=== PATIENT | male | born 1975 | race Two or more races ===

== ENCOUNTER 2020-03-01 19:29 | Emergency (ER) | payer OTHER, SELFPAY ==
[2020-03-01 20:14] VITALS: BP 114/75; PULSE 88; RESP 18; TEMP 36.9; O2SAT 91; BMI 21.2
--- NOTE | 2020-03-01 21:23 | CT_ITS ---
EXAMINATION: CTA CHEST PE STUDY CLINICAL INFORMATION: rt sided pain, hx pe COMPARISON: No pertinent prior studies are available for comparison. TECHNIQUE: Prior to contrast administration, noncontrast localization images were obtained. After the administration of 70ml of Omnipaque 350 IV contrast, contiguous thin slice helical images were obtained through the thorax. Reformatted MIP images in the coronal and sagittal planes were obtained at the acquisition workstation. This CT examination was performed using dose optimization techniques as appropriate, variously including the following: *Automated exposure control *Adjustment of mA and/or kV according to patient size (this includes techniques or standardized protocols for targeted exams where dose is matched to indication/reason for exam; i.e. extremities or head) *Use of iterative reconstruction technique DLP: 200 mGy-cm. FINDINGS: The bolus timing on this study was acceptable for visualization of the pulmonary arterial tree. There are no intraluminal pulmonary arterial filling defects present to suggest pulmonary embolism. The lungs are clear. No abnormal pulmonary nodules or masses are appreciated. No significant hilar or mediastinal adenopathy. There is no evidence of pleural effusion or pneumothorax. The heart is normal in size. No evidence of ventricular septal bowing or right heart strain. Great vessels are normal. Otherwise the mediastinum is unremarkable. There is no pericardial effusion or pericardial thickening. Limited evaluation of the upper abdominal viscera is unremarkable. CT/CT angio chest PE protocol IMPRESSION: Unremarkable examination. No evidence for pulmonary emboli VTE: Negative
--- NOTE | 2020-03-01 21:23 | ECG_ITS ---
Test Reason : CHEST PAIN Blood Pressure : / mmHG Vent. Rate : 077 BPM Atrial Rate : 077 BPM P-R Int : 142 ms QRS Dur : 088 ms QT Int : 392 ms P-R-T Axes : 090 087 081 degrees QTc Int : 443 ms Normal sinus rhythm Normal ECG When compared with ECG of 09-AUG-2018 03:49, No significant change was found Referred By: Tam Braden Electronically Signed By:HASEEB BUCKLEY MD
[2020-03-01] MEDS: Albuterol Sulfate (0.083%) 2.5 MG/3 ML VIAL.NEB 5 MG INHALE (21:43)
[2020-03-01 21:44] LABS: Basophils Percent Auto 0.2 % (0-2); Eosinophils Absolute Auto 0.4 X10*3/uL (0.0-0.4); Eosinophils Percent Auto 4.4 % (0-4); Hematocrit 37.1 % (42-52); Hemoglobin 12.3 g/dl (14.0-18.0); Imm Gran Abs Auto 0.02 X10*3/uL (0.00-0.03); Imm Gran Pct Auto 0.2 % (0.0-0.4); Lymphocytes Absolute Auto 2.7 X10*3/uL (1.2-4.9); Lymphocytes Percent Auto 32.7 % (20-40); MANUAL DIFF FLAG NO; Mean Corpuscular HGB Conc 33.2 g/dl (31.0-36.0); Mean Corpuscular Hemoglobin 31.9 pg (27.0-33.0); Mean Corpuscular Volume 96.4 fL (80-98); Mean Platelet Volume 9.9 fL (9.4-12.4); Monocytes Absolute Auto 0.7 X10*3/uL (0.1-1.2); Monocytes Percent Auto 8.1 % (2-11); Neutrophils Absolute Auto 4.4 X10*3/uL (2.0-8.3); Neutrophils Percent Auto 54.4 % (45-73); Platelet Count 227 X10*3/uL (160-400); Red Blood Count 3.85 X10*6/uL (4.60-5.80); Red Cell Distribution Width 12.6 % (11.0-16.0); White Blood Count 8.1 X10*3/uL (4.8-10.8)
[2020-03-01 21:45] VITALS: PULSE 74; PULSE 75; RESP 16; TEMP 37.1; O2SAT 98
[2020-03-01] MEDS: methylPREDNISolone Sod Succ/PF 125 MG/2 ML VIAL 60 MG IVPUSH (22:03)
[2020-03-01 22:06] LABS: Anion Gap 10 (12-20); Blood Urea Nitrogen 12 mg/dL (9-16); Calcium 8.7 mg/dL (8.4-10.2); Carbon Dioxide 32 mmol/L (22-29); Chloride 101 mmol/L (96-108); Creatinine Clr Calc Pharmacy 94.7; Estimated Glomerular Filt Rate > 60; Glucose Random 80 mg/dL (60-115); Potassium 4.2 mmol/l (3.3-5.1); Sodium 139 mmol/L (135-145)
[2020-03-01 22:11] LABS: Troponin-I High Sensitivity < 3.5 ng/L (<3.5-35.0)
[2020-03-01] MEDS: iohexoL 350 MG/ML 100 ML INFUS..BTL IV (22:35)
--- NOTE | 2020-03-01 22:37 | ED.CHESTPAIN ---
HPI - Chest Pain General Chief Complaint: Chest Pain Stated Complaint: lump on right side of chest Time Seen by Provider: 03/01/20 21:18 Source: patient Mode of arrival: ambulatory History of Present Illness HPI narrative: 44-year-old male with history of pulmonary embolism, chronic lung disease with home oxygen, here for shortness of breath and right-sided chest pain for 1-2 days. Patient states went to primary care doctor or steroids however was referred to emergency department for evaluation. Patient states has had some wheezing for the past several days and noticed that yesterday had pain to right upper chest secondary to cough denies fevers denies dizziness or syncope. Right-sided chest pain increase with palpation denies diaphoresis denies nausea vomiting MD complaint: chest pain Onset (ago): day(s) (2) Timing of current episode: constant Severity: mild Quality: tightness Treatment prior to arrival: none Related Data Home Medications Medication Instructions Recorded Confirmed albuterol sulfate 0.63 mg/3 mL 0.63 mg INHALATION Q4-6H PRN 03/01/20 solution for nebulization albuterol sulfate 90 mcg/actuation 2 puff INHALATION Q4-6H PRN 03/01/20 aerosol inhaler buspirone 15 mg tablet 15 mg PO BID 03/01/20 citalopram 40 mg tablet 40 mg PO DAILY 03/01/20 fluticasone 250 mcg-salmeterol 50 1 inh INHALATION BID 03/01/20 mcg/dose blistr powdr for inhalation hydroxyzine pamoate 25 mg capsule 25 mg PO QID 03/01/20 montelukast 10 mg tablet 10 mg PO DAILY 03/01/20 omeprazole 20 mg capsule,delayed 20 mg PO DAILY 03/01/20 release Previous Rx's Medication Instructions Recorded prednisone 50 mg PO DAILY 5 Days #5 tab 03/01/20 Allergies Allergy/AdvReac Type Severity Reaction Status Date / Time walnut Allergy Unknown SWELLING Verified 03/01/20 20:10 NSAIDS/ASA Allergy Unknown unknown Uncoded 03/01/20 16:12 walnuts Allergy Unknown anaphylaxis Uncoded 08/15/19 00:00 Review of Systems Review of Systems: Constitutional : No Weight loss, No Fever, No Chills, No Night Sweats, No Fatigue, No Malaise ENT/Mouth : No Hearing loss, No Ear Pain, No Nasal Congestion, No Sinus Pain, No Hoarseness, No sore throat, No Rhinorrhea, No Swallowing Difficulty Eyes: No Eye Pain, No Swelling, No Redness, No Foreign Body, No Discharge, No Vision Changes Cardiovascular : No Chest Pain, No SOB, No Dyspnea on Exertion, No Orthopnea, No Edema, No Palpitations Respiratory : No Cough, No Sputum, positive Wheezing, No Smoke Exposure, No Dyspnea Gastrointestinal : No Nausea, No Vomiting, No Diarrhea, No Constipation, No abdominal Pain, No Hematochezia, No Melena Genitourinary : no irregular bleeding, No Dysuria, No Urinary Frequency, No Hematuria, No Urinary Incontinence, No Urgency, No Flank Pain, No Urinary Flow Changes, No Hesitancy Musculoskeletal : No joint pain, No Myalgias, No Joint Swelling right upper chest pain with palpation Skin : No Skin Lesions, No rash Neuro : No Weakness, No Numbness, No Paresthesias, No Loss of Consciousness, No Dizziness, No Headache Psych : No Anxiety/Panic, No Depression, No SI/HI/AH/VH, No Social Issues, Heme/Lymph: No Bruising, No Bleeding,No Lymphadenopathy Endocrine : No Polyuria, No Polydipsia, No Temperature Intolerance [facility] Past Medical History Medical History Pulmonary emboli Family History Family History (Updated 03/01/20 @ 22:39 by Tam Braden DO) Other Family history non-contributory Social History Social History Alcohol intake: never Smoking Status: Never smoker Use of substances other than those prescribed or required for medical reasons: No Advance Directives: No Physical Exam Vital Signs: Vital Signs: Last Vital Signs Temp 98.7 F 03/01/20 21:45 Pulse 75 03/01/20 21:45 Resp 16 03/01/20 21:45 BP 114/75 03/01/20 20:14 Pulse Ox 98 03/01/20 21:45 Body Mass Index 21.2 Pulse ox 98%. Interpreted by me. Room air. Normal Appearance: Alert. Oriented X3. No acute distress. Eyes: Pupils equal, round and reactive to light. ENT: Pharynx normal. Neck: Normal inspection. Neck supple. No lymph nodes noted. No crepitus CVS: Normal heart rate and rhythm. Pulses normal. Normal S1 and S2 Respiratory: No respiratory distress. Breath sounds abnormal with bilateral Wheezing. No rales Abdomen: Soft and nontender. No rigidity. No distention. good BS x4 Skin: Skin warm and dry. Normal skin color. Normal skin turgor. Extremities: No lower extremity edema. Neurovascular intact to all extremities. No Lacerations. No Rash Neuro: Oriented X 3. No motor deficit. No sensory deficit. Moving all extermities. No slurred speech. Chest: Pain to palpation to right upper chest. No abscess. No erythema. No rash Course Course Course Narrative: Neuro course in emergency department patient remained calm in no respiratory distress. MDM - Chest Pain MDM Narrative Medical decision making narrative: 44-year-old male with history of pulmonary embolism here for pleuritic right-sided chest pain. CT scan of the chest now was negative. Troponin negative EKG negative. Patient did have a low oxygen saturation 91% room air however patient states that this is normal for him and has home oxygen. Will discharge home with p.o. steroids direction to use home oxygen Medical Records Data Attestation: I reviewed the patient's medical records. Lab Data Attestation: I reviewed the patient's lab results. Result diagrams: 03/01/20 21:38 03/01/20 21:38 Labs: Lab Results 03/01/20 03/01/20 03/01/20 Range/Units 21:38 21:38 21:38 WBC 8.1 (4.8-10.8) X10*3/uL RBC 3.85 L (4.60-5.80) X10*6/uL Hgb 12.3 L (14.0-18.0) g/dl Hct 37.1 L (42-52) % MCV 96.4 (80-98) fL MCH 31.9 (27.0-33.0) pg MCHC 33.2 (31.0-36.0) g/dl RDW 12.6 (11.0-16.0) % Plt Count 227 (160-400) X10*3/uL MPV 9.9 (9.4-12.4) fL Immature Gran % (Auto) 0.2 (0.0-0.4) % Neut % (Auto) 54.4 (45-73) % Lymph % (Auto) 32.7 (20-40) % [place] % (Auto) 8.1 (2-11) % Eos % (Auto) 4.4 H (0-4) % Baso % (Auto) 0.2 (0-2) % Lymph # (Auto) 2.7 (1.2-4.9) X10*3/uL [place] # (Auto) 0.7 (0.1-1.2) X10*3/uL Eos # (Auto) 0.4 (0.0-0.4) X10*3/uL Baso # (Auto) 0.0 (0.0-0.2) X10*3/uL Abs Immat Gran (auto) 0.02 (0.00-0.03) X10*3/uL Absolute Neuts (auto) 4.4 (2.0-8.3) X10*3/uL Absolute Nucleated RBC 0.000 (0.0-0.012) X10*3/uL Nucleated RBC % (auto) 0.0 (0.0-0.2) /100WBC Hold Blue Top SEE NOTE Sodium 139 (135-145) mmol/L Potassium 4.2 (3.3-5.1) mmol/l Chloride 101 (96-108) mmol/L Carbon Dioxide 32 H (22-29) mmol/L Anion Gap 10 L (12-20) BUN 12 (9-16) mg/dL Creatinine 0.99 (0.5-1.4) mg/dL Estim Creat Clear Calc 94.7 Estimated GFR > 60 Random Glucose 80 (60-115) mg/dL Calcium 8.7 (8.4-10.2) mg/dL Troponin I High Sens (<3.5-35.0) ng/L 03/01/20 Range/Units 21:38 WBC (4.8-10.8) X10*3/uL RBC (4.60-5.80) X10*6/uL Hgb (14.0-18.0) g/dl Hct (42-52) % MCV (80-98) fL MCH (27.0-33.0) pg MCHC (31.0-36.0) g/dl RDW (11.0-16.0) % Plt Count (160-400) X10*3/uL MPV (9.4-12.4) fL Immature Gran % (Auto) (0.0-0.4) % Neut % (Auto) (45-73) % Lymph % (Auto) (20-40) % [place] % (Auto) (2-11) % Eos % (Auto) (0-4) % Baso % (Auto) (0-2) % Lymph # (Auto) (1.2-4.9) X10*3/uL [place] # (Auto) (0.1-1.2) X10*3/uL Eos # (Auto) (0.0-0.4) X10*3/uL Baso # (Auto) (0.0-0.2) X10*3/uL Abs Immat Gran (auto) (0.00-0.03) X10*3/uL Absolute Neuts (auto) (2.0-8.3) X10*3/uL Absolute Nucleated RBC (0.0-0.012) X10*3/uL Nucleated RBC % (auto) (0.0-0.2) /100WBC Hold Blue Top Sodium (135-145) mmol/L Potassium (3.3-5.1) mmol/l Chloride (96-108) mmol/L Carbon Dioxide (22-29) mmol/L Anion Gap (12-20) BUN (9-16) mg/dL Creatinine (0.5-1.4) mg/dL Estim Creat Clear Calc Estimated GFR Random Glucose (60-115) mg/dL Calcium (8.4-10.2) mg/dL Troponin I High Sens < 3.5 (<3.5-35.0) ng/L Discharge Plan Discharge Clinical Impression: Chest wall pain Chest pain Qualifiers: Chest pain type: unspecified Qualified Code(s): R07.9 - Chest pain, unspecified Asthma Qualifiers: Asthma severity: moderate Asthma persistence: persistent Asthma complication type: uncomplicated Qualified Code(s): J45.40 - Moderate persistent asthma, uncomplicated Patient Disposition: Home, Self-Care Instructions: Chest Wall Pain (ED) Additional Instructions: Thank you for visiting the emergency department today. If your symptoms worsen or do not resolve completely please return to the emergency department immediately or call 911. if he have any questions please call your primary care physician Prescriptions: New prednisone 50 mg tablet 50 mg PO DAILY 5 Days Qty: 5 RF: 0 Referrals: Kishor Barrett, [employer] [Primary Care Provider] - 2 days
== END 2020-03-01 23:40 | disposition home or self-care (01) ==
PROVIDERS: Emergency Provider Emergency Medicine; PCP Nurse Practitioner Family
DX: R07.9 Chest pain, unspecified (principal); J45.40 Moderate persistent asthma, uncomplicated; R22.2 Localized swelling, mass and lump, trunk; Z86.711 Personal history of pulmonary embolism; Z79.899 Other long term (current) drug therapy
CPT/HCPCS: 36415; 71275; 80048; 84484; 85025; 93005; 94640; 96374; 99284; J2930; Q9967

== ENCOUNTER 2020-08-09 12:57 | Inpatient (IN) | payer OTHER, SELFPAY ==
[2020-08-09] VITALS (15 sets, daily range): BP systolic 83–118; BP diastolic 37–70; PULSE 73–111; RESP 15–20; TEMP 36.9–37.3; O2SAT 85–97; BMI 18.8
--- NOTE | ~2020-08-09 | XR_ITS ---
EXAMINATION: XR CHEST CLINICAL INFORMATION: SOB. COMPARISON: CTA chest 03/01/2020. Chest x-ray 08/09/2018 TECHNIQUE: Frontal view of the chest was obtained. FINDINGS: The lungs are hyperinflated but no acute pneumonic process seen. Heart size and pulmonary vascularity is normal. No gross bony abnormality seen. XR/XR chest 1V IMPRESSION: Hyperinflated lungs without acute process.
--- NOTE | 2020-08-09 13:20 | ECG_ITS ---
Test Reason : SOB Blood Pressure : / mmHG Vent. Rate : 082 BPM Atrial Rate : 082 BPM P-R Int : 140 ms QRS Dur : 086 ms QT Int : 368 ms P-R-T Axes : 088 155 068 degrees QTc Int : 429 ms Normal sinus rhythm Normal EKG When compared with ECG of 01-MAR-2020 22:46, No significant change was found Referred By: Bhavana Arndt Electronically Signed By:ANA JO
[2020-08-09] MEDS: Albuterol Sulfate (0.083%) 2.5 MG/3 ML VIAL.NEB 10 MG INHALE ×2 (13:28→15:32)
[2020-08-09 13:38] LABS: MANUAL DIFF FLAG NO
[2020-08-09] MEDS: methylPREDNISolone Sod Succ 125 MG/2 ML VIAL IVPUSH (13:38)
[2020-08-09] MEDS: Magnesium Sulfate/H2O 2 GM/50 ML PIGGYBACK IV (13:38)
[2020-08-09 13:44] LABS: Basophils Percent Auto 0.5 % (0-2); Eosinophils Absolute Auto 0.8 X10*3/uL (0.0-0.4); Eosinophils Percent Auto 9.4 % (0-4); Hematocrit 39.4 % (42-52); Hemoglobin 13.1 g/dl (14.0-18.0); Imm Gran Abs Auto 0.02 X10*3/uL (0.00-0.03); Imm Gran Pct Auto 0.2 % (0.0-0.4); Lymphocytes Absolute Auto 1.9 X10*3/uL (1.2-4.9); Lymphocytes Percent Auto 21.7 % (20-40); Mean Corpuscular HGB Conc 33.2 g/dl (31.0-36.0); Mean Corpuscular Hemoglobin 32.1 pg (27.0-33.0); Mean Corpuscular Volume 96.6 fL (80-98); Mean Platelet Volume 10.3 fL (9.4-12.4); Monocytes Absolute Auto 0.5 X10*3/uL (0.1-1.2); Monocytes Percent Auto 5.7 % (2-11); Neutrophils Absolute Auto 5.5 X10*3/uL (2.0-8.3); Neutrophils Percent Auto 62.5 % (45-73); Platelet Count 239 X10*3/uL (160-400); Red Blood Count 4.08 X10*6/uL (4.60-5.80); Red Cell Distribution Width 13.1 % (11.0-16.0); White Blood Count 8.8 X10*3/uL (4.8-10.8)
[2020-08-09 13:50] LABS: Prothrombin Time 12.4 SEC (10.8-13.0)
[2020-08-09 13:53] LABS: Partial Thromboplastin Time 32.7 SEC (24.1-38.0)
[2020-08-09 14:07] LABS: Lactic Acid 0.8 mmol/L (0.5-2.0)
[2020-08-09 14:16] LABS: Alanine Aminotransferase 14 U/L (0-40); Albumin Level 4.3 g/dL (3.5-5.0); Alkaline Phosphatase 59 U/L (39-117); Anion Gap 13 (12-20); Aspartate Amino Transferase 13 U/L (5-37); B Type Natriuretic Peptide 12 pg/mL (<100); Bilirubin Direct 0.2 mg/dL (0.0-0.5); Bilirubin Total 0.6 mg/dL (0.0-1.0); Blood Urea Nitrogen 20 mg/dL (9-16); Calcium 9.6 mg/dL (8.4-10.2); Carbon Dioxide 29 mmol/L (22-29); Chloride 104 mmol/L (96-108); Creatinine Clr Calc Pharmacy 70.5; Estimated Glomerular Filt Rate > 60; Glucose Random 94 mg/dL (60-115); Magnesium 2.1 mg/dL (1.6-2.6); Potassium 4.6 mmol/L (3.3-5.1); Sodium 141 mmol/L (135-145); Total Protein 6.7 g/dL (6.5-8.0); Troponin-I High Sensitivity < 3.5 ng/L (<3.5-35.0)
--- NOTE | 2020-08-09 14:31 | PC.NURSE ---
reports feeling better with treatment running and after meds. pharmacy present for med rec. ls still coarse but good air movement. nsr on monitor. awaits admission
[2020-08-09 15:18] LABS: Influenza A PCR NEGATIVE (Negative); Influenza B PCR NEGATIVE (Negative); Resp Syncy Virus RNA Qual PCR NEGATIVE (Negative); SARS COV2 PCR INHOUSE NEGATIVE (Negative)
--- NOTE | 2020-08-09 15:27 | PC.NURSE ---
following hour long treatment pt remains unlabored but coarse throughout with good air movement. provider left pt on RA and dipped to 85% at rest in bed. up to 91 on 6L
--- NOTE | 2020-08-09 15:51 | ED_ITS ---
HPI - SOB/Dyspnea General Chief Complaint: Dyspnea Stated Complaint: Short Of Breath Time Seen by Provider: 08/09/20 13:11 Source: patient and EMS Mode of arrival: EMS History of Present Illness HPI Narrative: 45-year-old male with a past medical history of asthma, PE on Eliquis, home O2 p.r.n., BIBA for chest tightness and SOB since yesterday, was sent in from UC noted to be 86% on RA, received DuoNeb by EMS with reported symptomatic improvement, oxygen improved to 95% on 6L NC. Patient admits to compliance with Eliquis, states rarely uses home O2. Reports productive cough. Denies fever, chills, LE edema, recent travel, COVID-19 exposure, abdominal pain, nausea/vomiting MD elicited complaint: shortness of breath, cough and asthma attack Related Data Home Medications Medication Instructions Recorded Confirmed hydroxyzine pamoate 25 mg capsule 25 mg PO BEDTIME 03/01/20 08/09/20 albuterol sulfate 0.63 mg INHALATION Q4H PRN 08/09/20 08/09/20 albuterol sulfate 2 puff INHALATION Q4H PRN 08/09/20 08/09/20 montelukast 10 mg PO BEDTIME 08/09/20 08/09/20 omeprazole 20 mg PO DAILY@0630 08/09/20 08/09/20 Previous Rx's Medication Instructions Recorded buspirone 15 mg tablet 15 mg PO BID #60 tab 06/07/20 fluticasone 250 mcg-salmeterol 50 1 inh INHALATION BID #60 ea 06/15/20 mcg/dose blistr powdr for inhalation citalopram 40 mg tablet 40 mg PO DAILY 30 Days #30 tab 07/06/20 apixaban 5 mg tablet 5 mg PO BID #120 tab 07/07/20 Allergies Allergy/AdvReac Type Severity Reaction Status Date / Time walnut Allergy Unknown SWELLING Verified 08/09/20 13:10 buprenorphine [From Suboxone] Allergy swelling Verified 08/09/20 13:10 in his hands and rash naloxone [From Suboxone] Allergy swelling Verified 08/09/20 13:10 in his hands and rash NSAIDS/ASA Allergy Unknown unknown Uncoded 08/09/20 12:15 walnuts Allergy Unknown anaphylaxis Uncoded 08/09/20 12:15 Review of Systems Review of Systems: Constitutional: No Fever, No Chills Cardiovascular: + Chest Pain, + SOB, No Dyspnea on Exertion, No Orthopnea, No Edema Respiratory: + Cough, + Sputum, + Wheezing Gastrointestinal: No Nausea, No Vomiting, No Diarrhea, No Constipation, No Abdominal pain Genitourinary: No irregular bleeding, No Dysuria, No Hematuria Musculoskeletal: No joint pain, No Myalgias Skin: No Skin Lesions, No rash Neuro: No Weakness, No Numbness, No Paresthesias Yes all other systems are reviewed and are negative [facility] Past Medical History Attestation statement: The following information was validated with the patient. Medical History (Updated 08/09/20 @ 16:00 by CHRISTO Grullon) Asthma Chronic lung disease Pulmonary emboli Family History Family History Other Family history non-contributory Social History Social History Alcohol intake: never Smoking Status: Never smoker Use of substances other than those prescribed or required for medical reasons: No Advance Directives: No Advance Directives Information Provided: No Physical Exam Vital Signs: Vital Signs: Last Vital Signs Temp 99.2 F 08/09/20 13:10 Pulse 76 08/09/20 15:33 Resp 18 08/09/20 15:26 BP 104/51 L 08/09/20 15:26 Pulse Ox 85 L 08/09/20 15:26 Body Mass Index 18.8 Const: General: cooperative and healthy appearing Orientation/consciousness: patient oriented x3 Limitations: no limitations HENMT: Head: Yes normal to inspection Ears: hearing grossly normal bilaterally General nose exam: Normal external nose present Face and sinus: Yes normal facial exam Eyes: General: appearance normal, both eyes and all related structures EOM: EOMs intact bilaterally Neck: Neck: Yes normal visual inspection and Yes no meningeal signs Resp: Other: Coarse lung sounds throughout Effort & Inspection: normal respiratory effort Auscultation: wheezes throughout Cardio: Rate: regular rate Heart sounds: S1 normal heart sound present and S2 normal heart sound present GI: Inspection: Yes normal to inspection Palpation (GI): Soft to palpation, nontender, no guarding and not rigid Skin: Rashes: no rashes Wounds: no wounds Neuro: General: patient oriented x3 and no meningeal signs Gait exam (Neuro): Normal gait present Extrem: General: Yes normal to inspection, Yes no pedal edema and Yes no calf tenderness Course Course Course Narrative: -no leukocytosis, H/H stable, troponin negative, lactic negative -COVID-19/influenza/RSV negative XR chest 1V IMPRESSION: Hyperinflated lungs without acute process >> on re-evaluation after our long albuterol treatment patient without much improvement, still desats to 85% on RA, persistent coarse lung sounds/wheezing. Additional albuterol neb ordered. Plan to admit for further management MDM - SOB/Dyspnea MDM Narrative Medical decision making narrative: 45-year-old male with a past medical history of asthma, PE on Eliquis, home O2 p.r.n., BIBA for chest tightness and SOB since yesterday, was sent in from noted to be 86% on RA, received DuoNeb by EMS with reported symptomatic improvement, oxygen improved to 95% on 6L NC. On exam low-grade temp 99.2?, coarse lung sounds with diffuse expiratory wheeze throughout, no LE edema or calf tenderness. Concern for asthma exacerbation. Unlikely PE as patient is anticoagulated. Rule out pneumonia/viral syndrome/COVID-19 Low concern for severe sepsis Plan: EKG, labs, CXR, Solu-Medrol, magnesium, albuterol, anticipated admission Medical Records Attestation: I reviewed the patient's medical records. Lab Data Attestation: I reviewed the patient's lab results. Result diagrams: 08/09/20 13:30 08/09/20 13:30 Labs: Lab Results 08/09/20 08/09/20 08/09/20 Range/Units 13:30 13:30 13:30 WBC 8.8 (4.8-10.8) X10*3/uL RBC 4.08 L (4.60-5.80) X10*6/uL Hgb 13.1 L (14.0-18.0) g/dl Hct 39.4 L (42-52) % MCV 96.6 (80-98) fL MCH 32.1 (27.0-33.0) pg MCHC 33.2 (31.0-36.0) g/dl RDW 13.1 (11.0-16.0) % Plt Count 239 (160-400) X10*3/uL MPV 10.3 (9.4-12.4) fL Immature Gran % (Auto) 0.2 (0.0-0.4) % Neut % (Auto) 62.5 (45-73) % Lymph % (Auto) 21.7 (20-40) % [place] % (Auto) 5.7 (2-11) % Eos % (Auto) 9.4 H (0-4) % Baso % (Auto) 0.5 (0-2) % Lymph # (Auto) 1.9 (1.2-4.9) X10*3/uL [place] # (Auto) 0.5 (0.1-1.2) X10*3/uL Eos # (Auto) 0.8 H (0.0-0.4) X10*3/uL Baso # (Auto) 0.0 (0.0-0.2) X10*3/uL Abs Immat Gran (auto) 0.02 (0.00-0.03) X10*3/uL Absolute Neuts (auto) 5.5 (2.0-8.3) X10*3/uL Absolute Nucleated RBC 0.000 (0.0-0.012) X10*3/uL Nucleated RBC % (auto) 0.0 (0.0-0.2) /100WBC PT (10.8-13.0) SEC INR (0.9-1.1) APTT (24.1-38.0) SEC Sodium 141 (135-145) mmol/L Potassium 4.6 (3.3-5.1) mmol/L Chloride 104 (96-108) mmol/L Carbon Dioxide 29 (22-29) mmol/L Anion Gap 13 (12-20) BUN 20 H D (9-16) mg/dL Creatinine 1.17 (0.5-1.4) mg/dL Estim Creat Clear Calc 70.5 Estimated GFR > 60 Random Glucose 94 (60-115) mg/dL Lactic Acid (0.5-2.0) mmol/L Calcium 9.6 D (8.4-10.2) mg/dL Magnesium 2.1 (1.6-2.6) mg/dL Total Bilirubin 0.6 (0.0-1.0) mg/dL Direct Bilirubin 0.2 (0.0-0.5) mg/dL AST 13 (5-37) U/L ALT 14 (0-40) U/L Alkaline Phosphatase 59 (39-117) U/L Troponin I High Sens < 3.5 (<3.5-35.0) ng/L B-Natriuretic Peptide 12 (<100) pg/mL Total Protein 6.7 (6.5-8.0) g/dL Albumin 4.3 (3.5-5.0) g/dL Coronavirus (PCR) (Negative) Influenza Type A (PCR) (Negative) Influenza Type B (PCR) (Negative) RSV RNA Qual (PCR) (Negative) 08/09/20 08/09/20 08/09/20 Range/Units 13:30 13:31 13:41 WBC (4.8-10.8) X10*3/uL RBC (4.60-5.80) X10*6/uL Hgb (14.0-18.0) g/dl Hct (42-52) % MCV (80-98) fL MCH (27.0-33.0) pg MCHC (31.0-36.0) g/dl RDW (11.0-16.0) % Plt Count (160-400) X10*3/uL MPV (9.4-12.4) fL Immature Gran % (Auto) (0.0-0.4) % Neut % (Auto) (45-73) % Lymph % (Auto) (20-40) % [place] % (Auto) (2-11) % Eos % (Auto) (0-4) % Baso % (Auto) (0-2) % Lymph # (Auto) (1.2-4.9) X10*3/uL [place] # (Auto) (0.1-1.2) X10*3/uL Eos # (Auto) (0.0-0.4) X10*3/uL Baso # (Auto) (0.0-0.2) X10*3/uL Abs Immat Gran (auto) (0.00-0.03) X10*3/uL Absolute Neuts (auto) (2.0-8.3) X10*3/uL Absolute Nucleated RBC (0.0-0.012) X10*3/uL Nucleated RBC % (auto) (0.0-0.2) /100WBC PT 12.4 (10.8-13.0) SEC INR 1.0 (0.9-1.1) APTT 32.7 (24.1-38.0) SEC Sodium (135-145) mmol/L Potassium (3.3-5.1) mmol/L Chloride (96-108) mmol/L Carbon Dioxide (22-29) mmol/L Anion Gap (12-20) BUN (9-16) mg/dL Creatinine (0.5-1.4) mg/dL Estim Creat Clear Calc Estimated GFR Random Glucose (60-115) mg/dL Lactic Acid 0.8 (0.5-2.0) mmol/L Calcium (8.4-10.2) mg/dL Magnesium (1.6-2.6) mg/dL Total Bilirubin (0.0-1.0) mg/dL Direct Bilirubin (0.0-0.5) mg/dL AST (5-37) U/L ALT (0-40) U/L Alkaline Phosphatase (39-117) U/L Troponin I High Sens (<3.5-35.0) ng/L B-Natriuretic Peptide (<100) pg/mL Total Protein (6.5-8.0) g/dL Albumin (3.5-5.0) g/dL Coronavirus (PCR) NEGATIVE (Negative) Influenza Type A (PCR) NEGATIVE (Negative) Influenza Type B (PCR) NEGATIVE (Negative) RSV RNA Qual (PCR) NEGATIVE (Negative) ECG Data Attestation: I personally reviewed and interpreted this ECG as follows: ECG interpretation date: 08/09/20 ECG interpretation time: 13:59 Interpretation: EKG normal sinus rhythm with a rate of 82. No STEMI/nonischemic. QTC 429 Discharge Plan Discharge Clinical Impression: Asthma with exacerbation Patient Disposition: Admitted As Inpatient Prescriptions: No Action buspirone 15 mg tablet 15 mg PO BID Qty: 60 RF: 3 fluticasone propion-salmeterol [Advair Diskus] 250-50 mcg/dose blister with device 1 inh inhalation BID Qty: 60 RF: 1 citalopram [Celexa] 40 mg tablet 40 mg PO DAILY 30 Days Qty: 30 RF: 0 apixaban [Eliquis] 5 mg tablet 5 mg PO BID Qty: 120 RF: 0 albuterol sulfate 0.63 mg/3 mL solution for nebulization 0.63 mg inhalation Q4H PRN (Reason: bronchospasm) RF: 0 omeprazole 20 mg capsule,delayed release(DR/EC) 20 mg PO DAILY@0630 RF: 0 montelukast 10 mg tablet 10 mg PO BEDTIME RF: 0 albuterol sulfate 90 mcg/actuation HFA aerosol inhaler 2 puff inhalation Q4H PRN (Reason: bronchospasm) RF: 0 hydroxyzine pamoate [Vistaril] 25 mg capsule 25 mg PO BEDTIME RF: 0
--- NOTE | 2020-08-09 16:42 | P.HPHOSP_ITS ---
History of Present Illness Date of Service: 08/09/20 Chief Complaint: shortness of breath This is a 45-year-old male with a past medical history of asthma, pulmonary embolism on Eliquis, prior opiate dependence previously on Suboxone now reports not on anything, anxiety, chronic respiratory failure with hypoxia with exertion reportedly is supposed to be on 2 L but reports he has not been using it for more than 1 year as he is not needed. Patient reports that he woke up last night with severe shortness of breath and try to uses nebulizers without much improvement and so he went to Urgent Care today where he was noted to have diffuse wheezing and hypoxic. He reports that yesterday he was outside and feels that maybe he is allergic to something. Reports some rhinorrhea since going outside, which was green and thick in nature. He denies any sinus pressure. He denies any fevers or chills. Denies any exposure to COVID 19+. Denies productive cough. Reports he was prescribed O2 last year as needed, but he has not required it in >1 year. He reports that he was previously a smoker but hasn't in >1 year. He reports he was previously on suboxone but has not been on it for a while. He has not received COVID vaccine. In the ED -- the patient was noted to have diffuse wheezing and hypoxic down to the mid 80s. He was given an hour long neb + mag + IV steriods but did not improve and hypoxic. A second hour long neb was started and admission was requested. Review of Systems Review of Systems: General - denies fevers or chills, denies weakness or fatigue HEENT - Rhinorrhea - greening in nature Cardiovascular - denies chest pain or palpitations, denies edema Respiratory - +SOB, wheezing, cough -- non productive Gastrointestinal - denies abdominal pain, nausea, vomiting, diarrhea - denies flank pain, denies dysuria, denies frequency or urgency Musculoskeletal - denies back pain, denies hip pain, denies knee pain, denies shoulder pain Neurological - denies any focal weakness or numbness Skin, denies any bruising or redness Psychiatric - denies any suicidal ideation, hallucinations, homicidal ideation Endocrinology - denies intolerance to hot / cold temperatures [facility] Medical History (Updated 08/09/20 @ 16:51 by Christofer Storey MD) Asthma Chronic lung disease Pulmonary emboli Family History Other Family history non-contributory Social History Alcohol intake: never Smoking Status: Never smoker Use of substances other than those prescribed or required for medical reasons: No Advance Directives: No Advance Directives Information Provided: No Meds Allergies Allergy/AdvReac Type Severity Reaction Status Date / Time walnut Allergy Unknown SWELLING Verified 08/09/20 13:10 buprenorphine [From Suboxone] Allergy swelling Verified 08/09/20 13:10 in his hands and rash naloxone [From Suboxone] Allergy swelling Verified 08/09/20 13:10 in his hands and rash NSAIDS/ASA Allergy Unknown unknown Uncoded 08/09/20 12:15 walnuts Allergy Unknown anaphylaxis Uncoded 08/09/20 12:15 Active Medications: Current Medications Generic Name Dose Route Start Last Admin Trade Name Freq PRN Reason Stop Dose Admin Pharmacy Consult 1 each 08/09/20 13:19 Consult Rx Perform Med Rec MISCELLANE ONCE PRN Consult order Home Medications Medication Instructions Recorded Confirmed Last Taken Type hydroxyzine pamoate 25 mg capsule 25 mg PO BEDTIME 03/01/20 08/09/20 Unknown History albuterol sulfate 0.63 mg INHALATION Q4H PRN 08/09/20 08/09/20 Unknown History albuterol sulfate 2 puff INHALATION Q4H PRN 08/09/20 08/09/20 Unknown History montelukast 10 mg PO BEDTIME 08/09/20 08/09/20 08/08/20 History omeprazole 20 mg PO DAILY@0630 08/09/20 08/09/20 08/09/20 History Physical Exam Vital Signs and Narrative: Vital Signs: Last Vital Signs Temp 99.2 F 08/09/20 13:10 Pulse 93 08/09/20 16:25 Resp 15 08/09/20 16:25 BP 105/60 08/09/20 16:25 Pulse Ox 97 08/09/20 16:25 Body Mass Index 18.8 Const: Other: Constitutional - Awake and Alert, Mild Distress Eyes - PERRLA, EOMI, no sinus pressure Cardiovascular - S1S2, RRR, No edema Respiratory - +resp distress with diffuse wheezing, saturation 97% while receiving nebulizer rx Gastrointestinal - NT / ND; +BS; No rebound or guarding - No CVA tenderness Extremities - no calf tenderness bilaterally, no swelling Musculoskeletal - Normal inspection, normal ROM Skin - Warm/Dry Neurological - Alert & oriented x3, No focal deficit Psychological - Appropriate affect Results Labs CBC and Chem 7: 08/09/20 13:30 08/09/20 13:30 Labs: Laboratory Results - last 24 hr 08/09/20 08/09/20 08/09/20 13:30 13:30 13:30 MCV 96.6 MCH 32.1 MCHC 33.2 RDW 13.1 Plt Count 239 MPV 10.3 Immature Gran % (Auto) 0.2 Neut % (Auto) 62.5 Lymph % (Auto) 21.7 [place] % (Auto) 5.7 Eos % (Auto) 9.4 H Baso % (Auto) 0.5 Lymph # (Auto) 1.9 [place] # (Auto) 0.5 Eos # (Auto) 0.8 H Baso # (Auto) 0.0 Abs Immat Gran (auto) 0.02 Absolute Neuts (auto) 5.5 Absolute Nucleated RBC 0.000 Nucleated RBC % (auto) 0.0 PT INR APTT Anion Gap 13 Estim Creat Clear Calc 70.5 Estimated GFR > 60 Random Glucose 94 Lactic Acid Calcium 9.6 D Magnesium 2.1 Total Bilirubin 0.6 Direct Bilirubin 0.2 AST 13 ALT 14 Alkaline Phosphatase 59 Troponin I High Sens < 3.5 B-Natriuretic Peptide 12 Total Protein 6.7 Albumin 4.3 Coronavirus (PCR) Influenza Type A (PCR) Influenza Type B (PCR) RSV RNA Qual (PCR) 08/09/20 08/09/20 08/09/20 13:30 13:31 13:41 MCV MCH MCHC RDW Plt Count MPV Immature Gran % (Auto) Neut % (Auto) Lymph % (Auto) [place] % (Auto) Eos % (Auto) Baso % (Auto) Lymph # (Auto) [place] # (Auto) Eos # (Auto) Baso # (Auto) Abs Immat Gran (auto) Absolute Neuts (auto) Absolute Nucleated RBC Nucleated RBC % (auto) PT 12.4 INR 1.0 APTT 32.7 Anion Gap Estim Creat Clear Calc Estimated GFR Random Glucose Lactic Acid 0.8 Calcium Magnesium Total Bilirubin Direct Bilirubin AST ALT Alkaline Phosphatase Troponin I High Sens B-Natriuretic Peptide Total Protein Albumin Coronavirus (PCR) NEGATIVE Influenza Type A (PCR) NEGATIVE Influenza Type B (PCR) NEGATIVE RSV RNA Qual (PCR) NEGATIVE Imaging Radiologist's Impressions: Impressions Chest X-Ray 08/09/20 13:21 IMPRESSION: Hyperinflated lungs without acute process. Assessment and Plan (1) Asthma: Status: Acute This is a 45 yo M with a PMH of asthma, chronic resp. failure on o2 with exertion (but hasnt used it for >1 year), PE (multiple) on Eliquis (reports last one >3 years ago), Prior opiate dependence and previously on suboxone (denies current use) who is admitted for acute on chronic resp. failure with hypoxia secondary to asthma exacerbation. 1. Acute on Chronic Resp failure with hypoxia O2 Saturation 85% upon arrival and remain hypoxic desspite 1 hour neb + mag + solu-medrol due to asthma exacerbation -- see details below 2. Asthma Exacerbation ? related to allergen; pt reports he gets symptoms in the fall and spring high dose steroids schduled and prn bronchodilators he endorses thick rhinorrhea but has no sinus tenderness, hold of antibiotics 3. History of Pulmnary Embolism Eliquis 5mg BD 4. Mood continue baseline meds Full Code DVT pptx, Eliquis
--- NOTE | 2020-08-09 17:15 | PC.NURSE ---
pt states that a new doc from upstairs came and said not to draw the labs. that i look good . This rn to look into changed in plan of care. pt is unlabored in bed still, LS coarse after 2nd treatment. ST on monitor.
--- NOTE | 2020-08-09 17:57 | MHC.CM.PN ---
CM met with pt. Admitted. Pending bed assignment. Pt lives alone. Has home O2 that he hasn't used in quite a while and a nebulizer for his asthma. No Covid vaccine. Encouraged pt to get the vaccine, especially because of his hx asthma. Pt not apposed to vaccine, just hasn't gotten one. also spoke with pt about getting vaccinated. No HCP on file; education provided,, but pt refuses at this time. Pt has hx opiate use disorder. States sober without drug use [id number]. States is allergic to Suboxone and did not like methadone. States went to detox and got clean. Pt has resources and does not feel the need to speak with organ recovery coordinator. Pt may need respiratory evaluation prior to discharge. Expect d/c home without services. Family to provide transportation. CM to follow for d/c needs.
[2020-08-09] MEDS: methylPREDNISolone Sod Succ 125 MG/2 ML VIAL 60 MG IVPUSH (18:46)
--- NOTE | 2020-08-09 18:50 | PC.NURSE ---
just back from bathroom. labored in bed, sao2 is 88 on room and slow to correct. pt able to speak in full sentences. skin pwd. st on monitor. doc christian consulted re med surg placement but states that this should be sufficient.
[2020-08-09] MEDS: Albuterol/Iprat 2.5/0.5MG 3 ML AMPUL.NEB INHALE (20:32)
[2020-08-09] MEDS: Apixaban 5 MG TABLET PO (20:44)
[2020-08-09] MEDS: hydrOXYzine HCL 25 MG TABLET PO (20:44)
[2020-08-09] MEDS: Montelukast Sodium 10 MG TABLET PO (20:44)
[2020-08-09] MEDS: busPIRone HCl 5 MG TABLET 15 MG PO (20:44)
[2020-08-09] MEDS: Lactated Ringers 500 ML 1000 ML IVCONT (21:31)
--- NOTE | 2020-08-09 21:33 | PC.NURSE ---
was up to br. was better able to tolerate ambulation and sao2 was at 93 upon return to bed with o2 reapplied.
--- NOTE | 2020-08-09 21:45 | PC.NURSE ---
[facility] called Alma to call back.
[2020-08-09 22:06] LABS: Amphetamine Screen Urine Not Detected (Not Detect); Barbiturates, Urine Not Detected (Not Detect); Benzodiazepines Screen Urine Not Detected (Not Detect); Cannabinoid Screen Urine Not Detected (Not Detect); Cocaine Screen Urine POSITIVE (Not Detect); Opiate Screen Urine POSITIVE (Not Detect); Phencyclidine Screen Urine Not Detected (Not Detect)
--- NOTE | 2020-08-09 22:37 | PC.NURSE ---
RN to rRN with molly on med surg
[2020-08-09] MEDS: 0.9 % Sodium Chloride Flush 3 ML SYRINGE IVFLUSH (23:54)
[2020-08-10] VITALS: BP 98/59; PULSE 94; RESP 20; TEMP 36.8; O2SAT 99
[2020-08-10] MEDS: methylPREDNISolone Sod Succ 125 MG/2 ML VIAL 60 MG IVPUSH ×2 (05:33→10:14)
[2020-08-10] MEDS: Omeprazole 20 MG CAPSULE.DR PO (05:33)
[2020-08-10 06:19] VITALS: PULSE 82; O2SAT 91
[2020-08-10] MEDS: Albuterol Sulfate (0.083%) 2.5 MG/3 ML VIAL.NEB INHALE (06:19)
[2020-08-10 07:29] VITALS: BP 103/44; PULSE 71; RESP 19; TEMP 36.4; O2SAT 93
[2020-08-10] MEDS: Escitalopram Oxalate 20 MG TABLET PO (08:03)
[2020-08-10] MEDS: 0.9 % Sodium Chloride Flush 3 ML SYRINGE IVFLUSH (08:03)
[2020-08-10] MEDS: Apixaban 5 MG TABLET PO (08:03)
[2020-08-10] MEDS: busPIRone HCl 5 MG TABLET 15 MG PO (08:06)
--- NOTE | 2020-08-10 09:18 | HO.PM.IMPN ---
Subjective Subjective Date of Service: 08/10/20 Interval History: seen and examined this AM reports feeling better. reports coughing with productive sputum -- yellow / green in nature he is hoping to go home today ROS General - no fevers or chills Cardiovascular - no chest pain Respiratory - +sob, but much less so; +productive cough Abdominal- no abdominal pain, nausea, vomiting, diarrhea Physical Exam Vital Signs: Vital Signs: Last Vital Signs Temp 97.6 F 08/10/20 07:29 Pulse 71 08/10/20 07:29 Resp 19 08/10/20 07:29 BP 103/44 L 08/10/20 07:29 Pulse Ox 93 08/10/20 07:29 Body Mass Index 18.8 Const: Other: General - no acute distress, appears comfortable Cardiovascular - regular rate and rhythm, S1-S2 Lungs - diffuse wheezing / rhonchi; no respiratory distress; saturating 93% on RA Abdomen - soft, nontender, no rebound or guarding Extremities - no edema bilaterally Neuro - awake and alert, no focal deficits Objective Data Current Medications Generic Name Dose Route Start Last Admin Trade Name Ulicesq PRN Reason Stop Dose Admin Acetaminophen 650 mg 08/09/20 17:17 Acetaminophen 325 Mg Tablet PO Q6H PRN Pain, Mild (Pain Scale 1-3) Albuterol Sulfate 2.5 mg 08/09/20 17:17 08/10/20 06:19 Albuterol Sulfate (0.083%) 2.5 Mg/3 Ml Vial.Neb INHALE 2.5 mg Q3H PRN Administration Shortness of Breath Albuterol/Ipratropium 3 ml 08/09/20 20:00 08/10/20 07:58 Albuterol/Iprat 2.5/0.5mg 3 Ml Ampul.Neb INHALE Not Given RQ4H WHILE AWAKE EMMA Apixaban 5 mg 08/09/20 21:00 08/10/20 08:03 Apixaban 5 Mg Tablet PO 5 mg BID EMMA Administration Buspirone HCl 15 mg 08/09/20 21:00 08/10/20 08:06 Buspirone Hcl 5 Mg Tablet PO 15 mg BID EMMA Administration Escitalopram Oxalate 20 mg 08/10/20 09:00 08/10/20 08:03 Escitalopram Oxalate 20 Mg Tablet PO 20 mg DAILY EMMA Administration Hydroxyzine HCl 25 mg 08/09/20 21:00 08/09/20 20:44 Hydroxyzine Hcl 25 Mg Tablet PO 25 mg BEDTIME EMMA Administration Methylprednisolone Sodium Succinate 60 mg 08/09/20 18:00 08/10/20 05:33 Methylprednisolone Sod Succ 125 Mg/2 Ml Vial IVPUSH 60 mg Q8H EMMA Administration Montelukast Sodium 10 mg 08/09/20 21:00 08/09/20 20:44 Montelukast Sodium 10 Mg Tablet PO 10 mg BEDTIME EMMA Administration Omeprazole 20 mg 08/10/20 06:30 08/10/20 05:33 Omeprazole 20 Mg Capsule. PO 20 mg DAILY@0630 EMMA Administration Ondansetron HCl 4 mg 08/09/20 17:17 Ondansetron Hcl 4 Mg/2 Ml Vial IVPUSH Q8H PRN Nausea and Vomiting Pharmacy Consult 1 each 08/09/20 13:19 Consult Rx Perform Med Rec MISCELLANE ONCE PRN Consult order Sodium Chloride 3 ml 08/10/20 00:00 08/10/20 08:03 0.9 % Sodium Chloride Flush 3 Ml Syringe IVFLUSH 3 ml QSHIFT EMMA Administration Labs CBC & Chem 7: 08/09/20 13:30 08/09/20 13:30 Assessment and Plan (1) Asthma: Status: Acute Assessment and Plan: This is a 45 yo M with a PMH of asthma, chronic resp. failure on o2 with exertion (but hasnt used it for >1 year), PE (multiple) on Eliquis (reports last one >3 years ago), Prior opiate dependence and previously on suboxone (denies current use) who is admitted for acute on chronic resp. failure with hypoxia secondary to asthma exacerbation. 1. Acute on Chronic Resp failure with hypoxia o2 requirements down-trending, now down to 2L continue to wean to RA as tolerated 2. Asthma Exacerbation 2a. Bronchitis continue soul-medrol and scheduled nebs add doxycycline and mucinex 3. History of Pulmnary Embolism Eliquis 5mg BID 4. Mood continue baseline meds Full Code DVT pptx, Eliquis dispo: home today vs tomorrow. patient wants to be d/c home today if possible. if able to wean off o2, will d/c this afternoon
--- NOTE | 2020-08-10 09:57 | P.CDIC_ITS ---
CDI Concurrent Query Service Date: 08/10/20 Documentation Clarification: Please clarify if you are treating a proba ble/suspected/likely or confirmed: Drug Dependence POA Drug abuse POA, History of Drug Dependence Please specify if known or undertermined Drug use, no evidence of dependence Provider Response: Other Other Diagnosis: Drug Use, no evidence of dependence. PLEASE DO NOT DELETE/MODIFY EXISTING CONTENT Additional information is needed in order to code to the highest accuracy and appropriate Severity of Illness (SOI). Please clarify the information noted below in your progress notes and discharge summary. Risk Factors/Clinical Indicators/Treatments Pt hasnt been on suboxone for a while, reports is not on anything. LABS cocaine positive opiates positive H & P: Has prior opiate drug dependence CDS: Zoraida Sunshine CCS, CDIS Contact Number: [phone] Please Review the information above and exercise your independent professional judgment in responding to the query. If you concur, pleas document in the PROGRESS NOTES and DISCHARGE SUMMARY. If you do not agree with the query, ple ase document in the query above. THIS QUERY IS PART OF THE PERMANENT MEDICAL RECORD
[2020-08-10] MEDS: guaiFENesin LA 600 MG TAB.ER.12H 1200 MG PO (10:14)
[2020-08-10] MEDS: Albuterol/Iprat 2.5/0.5MG 3 ML AMPUL.NEB INHALE (11:24)
[2020-08-10 11:25] VITALS: PULSE 82; O2SAT 92
--- NOTE | 2020-08-10 11:55 | MHC.CM.PN ---
POSSIBLE DISCHARGE HOME TODAY WITH NO SERVICES. CASE MANAGEMENT AVAILABLE IF NEEDED.
[2020-08-10 12:22] VITALS: BMI 18.8
[2020-08-10 13:15] VITALS: O2SAT 93
--- NOTE | 2020-08-10 14:22 | PM.DS ---
DS: Providers Provider Date of Service: 08/10/20 Date of admission: 08/09/20 16:41 Primary care physician: TONI Dunn DS: Diagnosis Discharge Diagnosis (1) Acute and chronic respiratory failure with hypoxia: Status: Acute (2) Asthma exacerbation: Status: Acute (3) Acute bacterial bronchitis: Status: Acute (4) Cocaine use: Status: Acute DS: Medications Discharge Medications Home Medications: Home Medications Medication Instructions Recorded Confirmed hydroxyzine pamoate 25 mg capsule 25 mg PO BEDTIME 03/01/20 08/09/20 albuterol sulfate 0.63 mg INHALATION Q4H PRN 08/09/20 08/09/20 albuterol sulfate 2 puff INHALATION Q4H PRN 08/09/20 08/09/20 montelukast 10 mg PO BEDTIME 08/09/20 08/09/20 omeprazole 20 mg PO DAILY@0630 08/09/20 08/09/20 Previous Rx's Medication Instructions Recorded buspirone 15 mg tablet 15 mg PO BID #60 tab 06/07/20 fluticasone 250 mcg-salmeterol 50 1 inh INHALATION BID #60 ea 06/15/20 mcg/dose blistr powdr for inhalation citalopram 40 mg tablet 40 mg PO DAILY 30 Days #30 tab 07/06/20 apixaban 5 mg tablet 5 mg PO BID #120 tab 07/07/20 doxycycline hyclate 100 mg PO Q12H #10 tab 08/10/20 guaifenesin 200 mg PO Q4H PRN #473 ml 08/10/20 prednisone 50 mg PO DAILY #5 tab 08/10/20 DS: Summary Hospital Course Hospital Course: Patient presented with complaints of shortness of breath and was found to be diffusely wheezing with significant hypoxia into the mid to low 80s on room air. He with that he was previously on oxygen as needed but has not required a in greater than 1 year. At the time of admission he denied any active substance abuse. He was treated with multiple rounds of inhaled bronchodilators in the emergency room and did not improve and so subsequently was admitted to the medical floor. He was given supplemental oxygen which was weaned to room air. He was treated with scheduled and p.r.n. bronchodilators as well as systemic steroids. He had a quicker than expected recovery with normalization of his oxygen saturation on exertion as well as room air. He will be discharged home with 5 more days of prednisone. Of note, the patient's drug screen resulted positive for opiates and cocaine use which he denied. He has been educated on cessation if he is indeed actively using. Time Spent with Patient Time attestation: Total time spent providing and/or coordinating discharge services: Discharge coordination time: Greater than 30 minutes Physical Exam Vital Signs: Vital Signs: Last Vital Signs Temp 97.6 F 08/10/20 07:29 Pulse 82 08/10/20 11:25 Resp 19 08/10/20 07:29 BP 103/44 L 08/10/20 07:29 Pulse Ox 93 08/10/20 13:15 Body Mass Index 18.8 Const: Other: General - no acute distress, appears comfortable Cardiovascular - regular rate and rhythm, S1-S2 Lungs - no distress or respiratory muscle use, mild scattered wheezing, ambulating freely on RA without hypoxia Abdomen - soft, nontender, no rebound or guarding Extremities - no edema bilaterally Neuro - awake and alert, no focal deficits DS: Data Data Completed and Pending Labs on day of discharge: Laboratory Results - last 24 hr 08/09/20 08/09/20 13:31 21:34 Urine Opiates Screen POSITIVE H Ur Barbiturates Screen Not Detected Ur Phencyclidine Scrn Not Detected Ur Amphetamines Screen Not Detected U Benzodiazepines Scrn Not Detected Urine Cocaine Screen POSITIVE H U Marijuana (THC) Screen Not Detected Coronavirus (PCR) NEGATIVE Influenza Type A (PCR) NEGATIVE Influenza Type B (PCR) NEGATIVE RSV RNA Qual (PCR) NEGATIVE Discharge Plan Discharge Patient Disposition: Home, Self-Care Discharge Diagnosis: Acute Respiratory Failure. Asthma Exacerbation Referrals: Kishor Barrett FNP- [Primary Care Provider] - 1 Week Discharge Medications: New doxycycline hyclate 100 mg Tablet 100 mg PO Q12H Qty: 10 RF: 0 guaifenesin 100 mg/5 mL liquid 200 mg PO Q4H PRN (Reason: congestion) Qty: 473 RF: 0 prednisone 50 mg tablet 50 mg PO DAILY Qty: 5 RF: 0 Continued buspirone 15 mg tablet 15 mg PO BID Qty: 60 RF: 3 fluticasone propion-salmeterol [Advair Diskus] 250-50 mcg/dose blister with device 1 inh inhalation BID Qty: 60 RF: 1 citalopram [Celexa] 40 mg tablet 40 mg PO DAILY 30 Days Qty: 30 RF: 0 apixaban [Eliquis] 5 mg tablet 5 mg PO BID Qty: 120 RF: 0 albuterol sulfate 0.63 mg/3 mL solution for nebulization 0.63 mg inhalation Q4H PRN (Reason: bronchospasm) RF: 0 omeprazole 20 mg capsule,delayed release(DR/EC) 20 mg PO DAILY@0630 RF: 0 montelukast 10 mg tablet 10 mg PO BEDTIME RF: 0 albuterol sulfate 90 mcg/actuation HFA aerosol inhaler 2 puff inhalation Q4H PRN (Reason: bronchospasm) RF: 0 hydroxyzine pamoate [Vistaril] 25 mg capsule 25 mg PO BEDTIME RF: 0 Discharge Orders: Discharge Order (Routine); Ordered 08/10/20 Ordered By: Christofer Storey Diet: advance to usual diet Activity on Discharge: As tolerated Stand Alone Forms: Patient Portal Discharge page Care Plan Goals: To stay healthy and out of the hospital. Health Concerns: Asthma Bronchitis Plan of Treatment: Continue your inhalers as you are previously doing. Finish 5 days of prednisone and 5 days of Doxycycline. Use Robitussin as needed. Assessment: 45 yo M presented with respiratory failure secondary to asthma flare up (secondary to bacterial bronchitis). Treated with high dose steroids and improved. Weaned to room air, both at rest and with exertion.
--- NOTE | 2020-08-10 14:37 | MHC.CM.PN ---
PATIENT IS DISCHARGED TO HOME WITH NO SERVICES. SELF ARRANGING TRANSPORT. RN AWARE OF PLAN.
== END 2020-08-10 16:12 | disposition home or self-care (01) | DRG 141 ==
LOC: HO.ED 16:00 → HO.EDOVER 16:56 → HO.S3 21:08
PROVIDERS: Physician Assistant; Admitting Provider Family Medicine; Emergency Provider Internal Medicine; PCP Nurse Practitioner Family; Visit Provider Family Medicine
DX: J45.901 Unspecified asthma with (acute) exacerbation (principal); J96.21 Acute and chronic respiratory failure with hypoxia; Z99.81 Dependence on supplemental oxygen; J20.9 Acute bronchitis, unspecified; Z20.822 Contact with and (suspected) exposure to COVID-19; F39 Unspecified mood [affective] disorder; Z86.711 Personal history of pulmonary embolism; Z79.01 Long term (current) use of anticoagulants; Z88.5 Allergy status to narcotic agent; Z88.6 Allergy status to analgesic agent; Z79.51 Long term (current) use of inhaled steroids; Z79.899 Other long term (current) drug therapy
CPT/HCPCS: 0241U; 36415; 71045; 80048; 80076; 80307; 83605; 83735; 83880; 84484; 85025; 85610; 85730; 93005; 94640; 94644; 94645; 96365; 96366; 96375; 99285; J2930; J3475

== ENCOUNTER 2020-09-24 18:19 | Inpatient (IN) | payer OTHER, SELFPAY ==
--- NOTE | ~2020-09-24 | XR_ITS ---
EXAMINATION: PORTABLE CHEST 1 VIEW CLINICAL INFORMATION: SOB/CP . COMPARISON: 08/09/2020. TECHNIQUE: Portable frontal view of the chest was obtained. FINDINGS: The lungs are hyperinflated. No focal infiltrate, effusion, edema, or pneumothorax. Cardiac and mediastinal silhouettes are within normal limits for technique. No acute bony abnormality seen. XR/XR chest 1V IMPRESSION: Chronically hyperinflated but otherwise no evidence of acute disease.
--- NOTE | ~2020-09-24 | CT_ITS ---
EXAMINATION: CT CHEST WITHOUT CONTRAST CLINICAL INFORMATION: Respiratory failure COMPARISON: CTA chest 10/31/2019 TECHNIQUE: Multidetector volumetric CT imaging of the chest was done. Axial MIP volume rendering provided. Sagittal and coronal reformatted images were obtained. This CT examination was performed using dose optimization techniques as appropriate, variously including the following: *Automated exposure control *Adjustment of mA and/or kV according to patient size (this includes techniques or standardized protocols for targeted exams where dose is matched to indication/reason for exam; i.e. extremities or head) *Use of iterative reconstruction technique DLP: 194 mGy-cm FINDINGS: FIELD CAPTAIN: Hyperexpanded lungs LUNGS: Respiratory motion degrades image quality. There is a patchy consolidative opacity in the posterior right lower lobe (5, 325/568). Subpleural Scarring in the lung apices. Scattered areas of linear atelectasis. MEDIASTINUM: Normal heart size. No bulky mediastinal lymphadenopathy. PLEURA: There is no pleural effusion. No pleural mass or thickening. AXILLA: No lymphadenopathy. UPPER ABDOMEN: Unremarkable. OSSEOUS STRUCTURES: Unremarkable. CT/CT chest wo con IMPRESSION: A small patchy opacity in the left lower lobe may be a focal infectious/inflammatory process.
[2020-09-24 18:26] VITALS: BP 117/72; PULSE 111; RESP 32; TEMP 36.6; O2SAT 95; BMI 19.8
--- NOTE | 2020-09-24 18:41 | ECG_ITS ---
Test Reason : ASTHMA Blood Pressure : / mmHG Vent. Rate : 115 BPM Atrial Rate : 115 BPM P-R Int : 142 ms QRS Dur : 084 ms QT Int : 328 ms P-R-T Axes : 091 074 080 degrees QTc Int : 453 ms Sinus tachycardia Right atrial enlargement Abnormal ECG When compared with ECG of 09-AUG-2020 13:59, No significant change was found Referred By: Bhavana Arndt Electronically Signed By:ANA JO
--- NOTE | 2020-09-24 19:14 | PHA.MEDREC ---
Pharmacy Consult ? Medication Reconciliation Pharmacy has completed the medication reconciliation. QVAR is per pt no fill history
--- NOTE | 2020-09-24 19:19 | PC.NURSE ---
PT'S DUONEB STARTED BY EMS COMPLETED, PT TRIALED ON ROOM AIR, SPO2 QUICKLY DROPPED TO 88%, PT REQUESTED O2 VIA NC, PT PLACED ON 4L O2 NC W/OUT RELIEF, SPO2 CONTINUED TO DROP TO 82%, PT RR INCREASED, PT STATED HE WAS FEELING WORSE W/OUT MORE OXYGEN SUPPLEMENTATION, PT PLACED ON 15L O2 NRB, SPO2 INCREASED TO 95%, PROVIDER AWARE
[2020-09-24 19:32] LABS: COVID-19 Test Negative (Negative); IDNOW Serial# 9DD0AD1C
[2020-09-24] MEDS: Albuterol Sulfate (0.083%) 2.5 MG/3 ML VIAL.NEB 10 MG INHALE ×2 (19:38→21:03)
[2020-09-24 19:40] VITALS: PULSE 103; O2SAT 100
[2020-09-24 20:00] VITALS: BP 109/65; PULSE 116; RESP 26; TEMP 36.7; O2SAT 933
[2020-09-24 20:00] LABS: MANUAL DIFF FLAG NO
--- NOTE | 2020-09-24 20:01 | ED.ASTHMA ---
HPI - Asthma General Chief Complaint: Asthma Stated Complaint: asthma Time Seen by Provider: 09/24/20 18:34 Source: patient and EMS Mode of arrival: EMS History of Present Illness HPI Narrative: 45-year-old male with a PMHx of asthma, PE on Eliquis, home O2 PRN., BIBA c/o asthma exacerbation starting early this morning, reports SOB, productive cough, wheezing, & chest tightness since 3:00 a.m. Used neb machine at home without relief. 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 Denies fever, chills, LE edema, recent travel, COVID-19 exposure, abdominal pain, nausea/vomiting MD complaint: asthma attack , shortness of breath and wheezing Related Data Home Medications Medication Instructions Recorded Confirmed montelukast 10 mg PO BEDTIME 08/09/20 09/24/20 omeprazole 20 mg PO DAILY@0630 08/09/20 09/24/20 beclomethasone dipropionate [Qvar 1 inh INHALATION DAILY 09/24/20 09/24/20 RediHaler] Previous Rx's Medication Instructions Recorded albuterol sulfate 0.63 mg/3 mL 0.63 mg INHALATION Q4H PRN 30 Days 08/17/20 solution for nebulization #90 ml albuterol sulfate 90 mcg/actuation 2 puff INHALATION Q4H PRN 30 Days 08/17/20 aerosol inhaler #8.5 g apixaban 5 mg tablet 5 mg PO BID #120 tab 09/07/20 Allergies Allergy/AdvReac Type Severity Reaction Status Date / Time walnut Allergy Unknown SWELLING Verified 08/09/20 13:10 buprenorphine [From Suboxone] Allergy swelling Verified 08/09/20 13:10 in his hands and rash naloxone [From Suboxone] Allergy swelling Verified 08/09/20 13:10 in his hands and rash NSAIDS/ASA Allergy Unknown unknown Uncoded 08/09/20 12:15 walnuts Allergy Unknown anaphylaxis Uncoded 08/09/20 12:15 Review of Systems Review of Systems: Constitutional: No Fever, No Chills, No Fatigue, No Malaise Cardiovascular: + Chest Pain, + SOB, No Dyspnea on Exertion, No Orthopnea, No Edema Respiratory: + Cough, + Sputum, + Wheezing, + Dyspnea Gastrointestinal: No Nausea, No Vomiting, No Diarrhea, No Constipation, No Abdominal pain Genitourinary: No Dysuria, No Urinary Frequency, No Hematuria Musculoskeletal: No joint pain, No Myalgias Skin: No Skin Lesions, No rash Neuro: No Weakness, No Numbness, No Headache Yes all other systems are reviewed and are negative [facility] Past Medical History Attestation statement: The following information was validated with the patient. Medical History (Updated 09/24/20 @ 20:28 by CHRISTO Grullon) Asthma Chronic lung disease Pulmonary emboli Family History Family History Other Family history non-contributory Social History Social History Household Members: Significant Other Housing: Apartment Do you presently have visiting nurse or other home services: No Alcohol intake: never Advance Directives: No Advance Directives Information Provided: Yes service: No Current occupational status: unemployed Physical Exam Vital Signs: Vital Signs: Last Vital Signs Temp 98.1 F 09/24/20 20:00 Pulse 119 H 09/24/20 20:18 Resp 28 H 09/24/20 20:18 BP 109/65 09/24/20 20:00 Pulse Ox 91 L 09/24/20 20:18 Oxygen Flow Rate 7 09/24/20 18:26 Body Mass Index 19.8 Const: General: cooperative Orientation/consciousness: patient oriented x3 Limitations: no limitations HENMT: Head: Yes normal to inspection Ears: hearing grossly normal bilaterally General nose exam: Normal external nose present Face and sinus: Yes normal facial exam Eyes: General: appearance normal, both eyes and all related structures EOM: EOMs intact bilaterally Neck: Neck: Yes normal visual inspection and Yes no meningeal signs Resp: Effort & Inspection: labored and tachypneic Auscultation: wheezes expiratory wheezes, inspiratory wheezes and throughout Cardio: Rate: regular rate and tachycardic Heart sounds: S1 normal heart sound present and S2 normal heart sound present GI: Inspection: Yes normal to inspection Palpation (GI): Soft to palpation, nontender, no guarding and not rigid Skin: Rashes: no rashes Wounds: no wounds Neuro: General: patient oriented x3 and no meningeal signs Extrem: General: Yes normal to inspection, Yes no pedal edema and Yes no calf tenderness Course Course Course Narrative: XR chest 1V IMPRESSION: Chronically hyperinflated but otherwise no evidence of acute disease. -2024--patient on hour long treatment without much improvement. Plan is for admission. No leukocytosis. Lactic negative, COVID-19 negative -labs otherwise unremarkable. Patient admitted to hospitalist team [id number] MDM - Asthma MDM Narrative Medical decision making narrative: 45-year-old male with a PMHx of asthma, PE on Eliquis, home O2 PRN., BIBA c/o asthma exacerbation starting early this morning, reports SOB, productive cough, wheezing, & chest tightness since 3:00 a.m. on exam tachycardic, tachypneic, labored, on aerosol mask satting 95% on 15 L, diffuse inspiratory and expiratory wheezing throughout, no pedal edema/calf tenderness. Patient dropped to 80s on nasal cannula. Concern for asthma exacerbation. Unlikely PE as patient is anticoagulated. Rule out pneumonia/viral syndrome/COVID-19. Plan: EKG, labs, CXR, COVID-19 testing, DuoNeb, anticipated admission Medical Records Attestation: I reviewed the patient's medical records. Lab Data Attestation: I reviewed the patient's lab results. Result diagrams: 09/24/20 19:56 09/24/20 19:56 Labs: Lab Results 09/24/20 09/24/20 09/24/20 Range/Units 19:12 19:56 19:56 WBC 7.9 (4.8-10.8) X10*3/uL RBC 3.65 L (4.60-5.80) X10*6/uL Hgb 11.9 L (14.0-18.0) g/dl Hct 35.6 L (42-52) % MCV 97.5 (80-98) fL MCH 32.6 (27.0-33.0) pg MCHC 33.4 (31.0-36.0) g/dl RDW 12.7 (11.0-16.0) % Plt Count 184 (160-400) X10*3/uL MPV 10.3 (9.4-12.4) fL Immature Gran % (Auto) 0.4 (0.0-0.4) % Neut % (Auto) 86.3 H (45-73) % Lymph % (Auto) 8.8 L (20-40) % [place] % (Auto) 2.0 (2-11) % Eos % (Auto) 2.0 (0-4) % Baso % (Auto) 0.5 (0-2) % Lymph # (Auto) 0.7 L (1.2-4.9) X10*3/uL [place] # (Auto) 0.2 (0.1-1.2) X10*3/uL Eos # (Auto) 0.2 (0.0-0.4) X10*3/uL Baso # (Auto) 0.0 (0.0-0.2) X10*3/uL Abs Immat Gran (auto) 0.03 (0.00-0.03) X10*3/uL Absolute Neuts (auto) 6.8 (2.0-8.3) X10*3/uL Absolute Nucleated RBC 0.000 (0.0-0.012) X10*3/uL Nucleated RBC % (auto) 0.0 (0.0-0.2) /100WBC PT 14.9 H D (10.8-13.0) SEC INR 1.3 H (0.9-1.1) APTT 35.5 (24.1-38.0) SEC Sodium (135-145) mmol/L Potassium (3.3-5.1) mmol/L Chloride (96-108) mmol/L Carbon Dioxide (22-29) mmol/L Anion Gap (12-20) BUN (9-16) mg/dL Creatinine (0.5-1.4) mg/dL Estim Creat Clear Calc Estimated GFR Random Glucose (60-115) mg/dL Lactic Acid (0.5-2.0) mmol/L Calcium (8.4-10.2) mg/dL Magnesium (1.6-2.6) mg/dL Total Bilirubin (0.0-1.0) mg/dL Direct Bilirubin (0.0-0.5) mg/dL AST (5-37) U/L ALT (0-40) U/L Alkaline Phosphatase (39-117) U/L Total Protein (6.5-8.0) g/dL Albumin (3.5-5.0) g/dL COVID-19 (ELI) Negative (Negative) COVID-19 Clin Com See Note 09/24/20 09/24/20 Range/Units 19:56 19:56 WBC (4.8-10.8) X10*3/uL RBC (4.60-5.80) X10*6/uL Hgb (14.0-18.0) g/dl Hct (42-52) % MCV (80-98) fL MCH (27.0-33.0) pg MCHC (31.0-36.0) g/dl RDW (11.0-16.0) % Plt Count (160-400) X10*3/uL MPV (9.4-12.4) fL Immature Gran % (Auto) (0.0-0.4) % Neut % (Auto) (45-73) % Lymph % (Auto) (20-40) % [place] % (Auto) (2-11) % Eos % (Auto) (0-4) % Baso % (Auto) (0-2) % Lymph # (Auto) (1.2-4.9) X10*3/uL [place] # (Auto) (0.1-1.2) X10*3/uL Eos # (Auto) (0.0-0.4) X10*3/uL Baso # (Auto) (0.0-0.2) X10*3/uL Abs Immat Gran (auto) (0.00-0.03) X10*3/uL Absolute Neuts (auto) (2.0-8.3) X10*3/uL Absolute Nucleated RBC (0.0-0.012) X10*3/uL Nucleated RBC % (auto) (0.0-0.2) /100WBC PT (10.8-13.0) SEC INR (0.9-1.1) APTT (24.1-38.0) SEC Sodium 141 (135-145) mmol/L Potassium 4.4 (3.3-5.1) mmol/L Chloride 108 (96-108) mmol/L Carbon Dioxide 24 (22-29) mmol/L Anion Gap 13 (12-20) BUN 14 (9-16) mg/dL Creatinine 0.81 (0.5-1.4) mg/dL Estim Creat Clear Calc 107.1 Estimated GFR > 60 Random Glucose 119 H (60-115) mg/dL Lactic Acid 1.5 (0.5-2.0) mmol/L Calcium 8.6 D (8.4-10.2) mg/dL Magnesium 2.1 (1.6-2.6) mg/dL Total Bilirubin 0.4 (0.0-1.0) mg/dL Direct Bilirubin < 0.2 (0.0-0.5) mg/dL AST 17 (5-37) U/L ALT 8 (0-40) U/L Alkaline Phosphatase 53 (39-117) U/L Total Protein 6.2 L (6.5-8.0) g/dL Albumin 3.9 (3.5-5.0) g/dL COVID-19 (ELI) (Negative) COVID-19 Clin Com Discharge Plan Discharge Clinical Impression: Asthma with exacerbation Patient Disposition: Admitted As Inpatient
[2020-09-24 20:07] LABS: Basophils Percent Auto 0.5 % (0-2); Eosinophils Absolute Auto 0.2 X10*3/uL (0.0-0.4); Hematocrit 35.6 % (42-52); Hemoglobin 11.9 g/dl (14.0-18.0); Imm Gran Abs Auto 0.03 X10*3/uL (0.00-0.03); Imm Gran Pct Auto 0.4 % (0.0-0.4); Lymphocytes Absolute Auto 0.7 X10*3/uL (1.2-4.9); Lymphocytes Percent Auto 8.8 % (20-40); Mean Corpuscular HGB Conc 33.4 g/dl (31.0-36.0); Mean Corpuscular Hemoglobin 32.6 pg (27.0-33.0); Mean Corpuscular Volume 97.5 fL (80-98); Mean Platelet Volume 10.3 fL (9.4-12.4); Monocytes Absolute Auto 0.2 X10*3/uL (0.1-1.2); Neutrophils Absolute Auto 6.8 X10*3/uL (2.0-8.3); Neutrophils Percent Auto 86.3 % (45-73); Platelet Count 184 X10*3/uL (160-400); Red Blood Count 3.65 X10*6/uL (4.60-5.80); Red Cell Distribution Width 12.7 % (11.0-16.0); White Blood Count 7.9 X10*3/uL (4.8-10.8)
[2020-09-24 20:18] VITALS: PULSE 119; RESP 28; O2SAT 91
[2020-09-24 20:21] LABS: INTERNATIONAL NORM RATIO 1.3 (0.9-1.1); Prothrombin Time 14.9 SEC (10.8-13.0)
[2020-09-24 20:23] LABS: Lactic Acid 1.5 mmol/L (0.5-2.0); Partial Thromboplastin Time 35.5 SEC (24.1-38.0)
--- NOTE | 2020-09-24 20:30 | PC.NURSE ---
PT UPRIGHT IN BED, NO CHG IN RESPIRATORY STATUS, PT CONTINUES TO SIT STRAIGHT UPRIGHT, RR SHALLOW, TACHYPNEIC, EVEN, AND LABORED, SPO2 90-93% ON NEBULIZER AT 8L O2, PROVIDER AND DR DUDLEY TO BEDISDE TO EVAL PT.
[2020-09-24 20:31] LABS: Alanine Aminotransferase 8 U/L (0-40); Albumin Level 3.9 g/dL (3.5-5.0); Alkaline Phosphatase 53 U/L (39-117); Anion Gap 13 (12-20); Aspartate Amino Transferase 17 U/L (5-37); Bilirubin Direct < 0.2 mg/dL (0.0-0.5); Bilirubin Total 0.4 mg/dL (0.0-1.0); Blood Urea Nitrogen 14 mg/dL (9-16); Calcium 8.6 mg/dL (8.4-10.2); Carbon Dioxide 24 mmol/L (22-29); Chloride 108 mmol/L (96-108); Creatinine Clr Calc Pharmacy 107.1; Estimated Glomerular Filt Rate > 60; Glucose Random 119 mg/dL (60-115); Magnesium 2.1 mg/dL (1.6-2.6); Potassium 4.4 mmol/L (3.3-5.1); Sodium 141 mmol/L (135-145); Total Protein 6.2 g/dL (6.5-8.0)
[2020-09-24 20:35] LABS: Troponin-I High Sensitivity < 3.5 ng/L (<3.5-35.0)
[2020-09-24] MEDS: 0.9 % Sodium Chloride 1,000 ML 999 ML IVCONT (20:51)
[2020-09-24 21:03] VITALS: PULSE 108; O2SAT 97
[2020-09-24 22:00] VITALS: BP 106/55; PULSE 110; RESP 20; TEMP 36.6; O2SAT 100
--- NOTE | 2020-09-24 22:26 | PC.NURSE ---
PT UPRIGHT IN BED SLEEPING, RR NOW EVEN AND UNLABORED, SKIN WPD, NSR/ST ON TELE, SPO2 100% ON 15L O2 NRB, O2 TITRATED DOWN TO 10LPM
[2020-09-25] VITALS (16 sets, daily range): BP systolic 92–138; BP diastolic 53–77; PULSE 96–122; RESP 16–40; TEMP 36.1–36.9; O2SAT 92–100
--- NOTE | 2020-09-25 00:23 | P.HPHOSP_ITS ---
History of Present Illness Date of Service: 09/25/20 Chief Complaint: sob This is a 45-year-old male with past medical history of asthma, pulmonary emboli on apixaban who presents to the hospital with complaints of shortness of breath. Patient reports that he has been having asthma exacerbation for the past 1 wee k, but last night had an asthma attack, used his DuoNeb as well as inhalers with some relief, went back to bed, but woke up with severe shortness of breath, wheezing so decided to come to the hospital. He denies any fever or chills, reports some cough with no sputum production, chest tightness from the coughing as well as the wheezing which improved with a breathing treatments received in the hospital, denies any abdominal pain nausea or vomiting, no diarrhea constipation, no urinary symptoms and no lower extremity edema. patient also reports that he uses cocaine and heroin and also smokes about 5-6 cigarettes daily on arrival to the ED patient hemodynamically stable with no significant abnormal vitals except for heart rate that ranges between 100-110 Labs are significant for WBC count of 7.9, hemoglobin of 11.9 otherwise unremarkable. UDS positive for cocaine as well as opioids chest x-ray shows no evidence of acute disease Patient will be admitted for further management Review of Systems Review of Systems: Yes all other systems are reviewed and are negative [facility] Medical History Asthma Chronic lung disease Pulmonary emboli Family History Other Family history non-contributory Social History Household Members: Significant Other Housing: House Do you presently have visiting nurse or other home services: No Alcohol intake: never Patient Tobacco Use Status: Current everyday Tobacco user Tobacco use type: Cigarette Patient Interested in Nicotine Replacement: No Patient Given Instructions on How to Stop Smoking: No Use of substances other than those prescribed or required for medical reasons: Unknown Have you been hit, kicked, punched, or otherwise hurt by someone within the past year? If so, by whom?: No Do you feel safe in your current relationship?: No Is there a partner from a previous relationship who is making you feel unsafe now?: No Are you made to feel afraid or neglected: No Advance Directives: No Advance Directives Information Provided: Yes Do you have thoughts of harming others: None Do you have a plan to hurt others: No Plan Recently lost weight without trying: No Eating poorly because of decreased appetite: No Nutrition Risks: No Nutritional Risk Poor oral hygiene: No service: No Current occupational status: unemployed Meds Allergies Allergy/AdvReac Type Severity Reaction Status Date / Time walnut Allergy Unknown SWELLING Verified 08/09/20 13:10 buprenorphine [From Suboxone] Allergy swelling Verified 08/09/20 13:10 in his hands and rash naloxone [From Suboxone] Allergy swelling Verified 08/09/20 13:10 in his hands and rash NSAIDS/ASA Allergy Unknown unknown Uncoded 08/09/20 12:15 walnuts Allergy Unknown anaphylaxis Uncoded 08/09/20 12:15 Active Medications: Current Medications Generic Name Dose Route Start Last Admin Trade Name Freq PRN Reason Stop Dose Admin Pharmacy Consult 1 each 09/24/20 18:43 Consult Rx Perform Med Rec MISCELLANE ONCE PRN Consult order Home Medications Medication Instructions Recorded Confirmed Last Taken Type montelukast 10 mg PO BEDTIME 08/09/20 09/24/20 09/23/20 History omeprazole 20 mg PO DAILY@0630 08/09/20 09/24/20 09/24/20 History beclomethasone dipropionate [Qvar 1 inh INHALATION DAILY 09/24/20 09/24/20 Unknown History RediHaler] Physical Exam 2 Vital Signs and Narrative: Vital Signs: Last Vital Signs Temp 97.9 F 09/24/20 22:00 Pulse 110 H 09/24/20 22:00 Resp 20 09/24/20 22:00 BP 106/55 L 09/24/20 22:00 Pulse Ox 100 09/24/20 22:00 Oxygen Flow Rate 7 09/24/20 18:26 Body Mass Index 19.8 Const: General: cooperative and no acute distress Orientation/consciousness: patient oriented x3 Eyes: General: appearance normal, both eyes and all related structures Resp: Other: wheezing Effort & Inspection: normal respiratory effort Cardio: Rate: regular rate Rhythm: regular rhythm GI: Palpation (GI): Soft to palpation Auscultation: normal bowel sounds Skin: General skin exam: no rashes or lesions noted Neuro: General: patient oriented x3 Cognition (Neuro): normal cognition Extrem: General: Yes normal to inspection and Yes no pedal edema Results Labs CBC and Chem 7: 09/25/20 05:17 09/25/20 05:17 Labs: Laboratory Results - last 24 hr 09/24/20 09/24/20 09/24/20 19:12 19:56 19:56 MCV 97.5 MCH 32.6 MCHC 33.4 RDW 12.7 Plt Count 184 MPV 10.3 Immature Gran % (Auto) 0.4 Neut % (Auto) 86.3 H Lymph % (Auto) 8.8 L [place] % (Auto) 2.0 Eos % (Auto) 2.0 Baso % (Auto) 0.5 Lymph # (Auto) 0.7 L [place] # (Auto) 0.2 Eos # (Auto) 0.2 Baso # (Auto) 0.0 Abs Immat Gran (auto) 0.03 Absolute Neuts (auto) 6.8 Absolute Nucleated RBC 0.000 Nucleated RBC % (auto) 0.0 PT 14.9 H D INR 1.3 H APTT 35.5 Anion Gap Estim Creat Clear Calc Estimated GFR Random Glucose Lactic Acid Calcium Magnesium Total Bilirubin Direct Bilirubin AST ALT Alkaline Phosphatase Troponin I High Sens Total Protein Albumin COVID-19 (ELI) Negative COVID-19 Clin Com See Note 09/24/20 09/24/20 09/24/20 19:56 19:56 19:56 MCV MCH MCHC RDW Plt Count MPV Immature Gran % (Auto) Neut % (Auto) Lymph % (Auto) [place] % (Auto) Eos % (Auto) Baso % (Auto) Lymph # (Auto) [place] # (Auto) Eos # (Auto) Baso # (Auto) Abs Immat Gran (auto) Absolute Neuts (auto) Absolute Nucleated RBC Nucleated RBC % (auto) PT INR APTT Anion Gap 13 Estim Creat Clear Calc 107.1 Estimated GFR > 60 Random Glucose 119 H Lactic Acid 1.5 Calcium 8.6 D Magnesium 2.1 Total Bilirubin 0.4 Direct Bilirubin < 0.2 AST 17 ALT 8 Alkaline Phosphatase 53 Troponin I High Sens < 3.5 Total Protein 6.2 L Albumin 3.9 COVID-19 (ELI) COVID-19 Clin Com Imaging Radiologist's Impressions: Impressions Chest X-Ray 09/24/20 18:41 IMPRESSION: Chronically hyperinflated but otherwise no evidence of acute disease. Assessment and Plan (1) Asthma exacerbation: Qualifiers: Asthma severity: mild Asthma persistence: intermittent Qualified Code(s): J45.21 - Mild intermittent asthma with (acute) exacerbation Status: Acute (2) Acute and chronic respiratory failure with hypoxia: Status: Acute (3) Cocaine use: Status: Acute this is a 45 yo male with past medical history of asthma presents to the hospital with shortness of breath # acute on chronic respiratory failure with hypoxia - patient apparently presented to the hospital with hypoxia in the 80s - currently on high-flow - will treat with Solu-Medrol IV 40 b.i.d., DuoNeb treatments - titrate oxygen off as tolerated # asthma exacerbation - most likely secondary to cocaine as well as smoking cigarettes - will treat with IV Solu-Medrol 40 b.i.d., DuoNeb p.r.n. and scheduled - follow respiratory function # polysubstance abuse - will start him on hydroxyzine p.r.n. - clonidine for restlessness as well as sympathetic withdrawal # Hx of PE - Continue apixaban dvt ppx: Apixaban Quality Stroke Does the patient have a stroke diagnosis?: No VTE Prior VTE?: Yes VTE Risk Level:: Medical - moderate - high VTE Device Contraindication: Treatment Not Indicated VTE Drug Contraindication: N/A - Med Ordered
[2020-09-25] MEDS: methylPREDNISolone Sod Succ 40 MG/ML VIAL IVPUSH ×2 (01:37→13:32)
[2020-09-25] MEDS: Apixaban 5 MG TABLET PO ×3 (01:37→20:17)
[2020-09-25] MEDS: hydrOXYzine HCL 25 MG TABLET PO ×2 (01:37→06:24)
[2020-09-25] MEDS: 0.9 % Sodium Chloride Flush 3 ML SYRINGE IVFLUSH (01:37)
[2020-09-25] MEDS: Albuterol/Iprat 2.5/0.5MG 3 ML AMPUL.NEB INHALE ×5 (01:43→20:47)
[2020-09-25] MEDS: Morphine Sulfate 4 MG/ML CARTRIDGE IVPUSH ×2 (02:04→09:08)
[2020-09-25 03:20] LABS: Amphetamine Screen Urine Not Detected (Not Detect); Barbiturates, Urine Not Detected (Not Detect); Benzodiazepines Screen Urine Not Detected (Not Detect); Cannabinoid Screen Urine Not Detected (Not Detect); Cocaine Screen Urine POSITIVE (Not Detect); Opiate Screen Urine POSITIVE (Not Detect); Phencyclidine Screen Urine Not Detected (Not Detect)
[2020-09-25 05:43] LABS: Hematocrit 33.5 % (42-52); Hemoglobin 10.9 g/dl (14.0-18.0); Imm Gran Abs Auto 0.02 X10*3/uL (0.00-0.03); Imm Gran Pct Auto 0.3 % (0.0-0.4); Lymphocytes Absolute Auto 0.3 X10*3/uL (1.2-4.9); Lymphocytes Percent Auto 3.6 % (20-40); MANUAL DIFF FLAG SCAN; Mean Corpuscular HGB Conc 32.5 g/dl (31.0-36.0); Mean Corpuscular Hemoglobin 32.1 pg (27.0-33.0); Mean Corpuscular Volume 98.5 fL (80-98); Mean Platelet Volume 10.2 fL (9.4-12.4); Monocytes Absolute Auto 0.1 X10*3/uL (0.1-1.2); Monocytes Percent Auto 0.9 % (2-11); Neutrophils Absolute Auto 7.2 X10*3/uL (2.0-8.3); Neutrophils Percent Auto 95.2 % (45-73); Platelet Count 180 X10*3/uL (160-400); Red Cell Distribution Width 13.1 % (11.0-16.0); SCAN SMEAR FLAG 1; White Blood Count 7.6 X10*3/uL (4.8-10.8)
[2020-09-25 06:04] LABS: SLIDE REVIEW VERIFIED
[2020-09-25 06:14] LABS: Anion Gap 18 (12-20); Blood Urea Nitrogen 13 mg/dL (9-16); Calcium 8.7 mg/dL (8.4-10.2); Carbon Dioxide 16 mmol/L (22-29); Chloride 110 mmol/L (96-108); Creatinine Clr Calc Pharmacy 89.4; Estimated Glomerular Filt Rate > 60; Glucose Random 193 mg/dL (60-115); Potassium 3.7 mmol/L (3.3-5.1); Sodium 140 mmol/L (135-145)
[2020-09-25] MEDS: Magnesium Sulfate/H2O 2 GM/50 ML PIGGYBACK IV (07:50)
--- NOTE | 2020-09-25 09:03 | PC.NURSE ---
pt having episodes of very low oxygen saturations 74-85. He recovers saturation when non rebreather applied over high flow. Pt tachypnic rate 40, also tiring. Pt has severe wheezing scattered throughout lung fountain and is anxious, states he cannot breathe. MD aware, then MD to bedside.
[2020-09-25 09:34] LABS: ABG Base Excess -5.4 mmol/L; ABG HCO3 20 mmol/L (22-26); ABG pCO2 42 mmHg (32-45); ABG pCO2 TC 41 mmHg (32-45); ABG pH 7.29 (7.35-7.45); ABG pO2 92 mmHg (83-108); ABG pO2 TC 87 (83-108)
--- NOTE | 2020-09-25 10:29 | PC.NURSE ---
respiratory to bedside, pt seen by ICU MD. Pt placed on BiPAP and tolerating very well. Will continue to closely observe.
[2020-09-25 10:54] LABS: ABG Refer to POC result
--- NOTE | 2020-09-25 11:04 | W.PM.CCCN ---
History of Present Illness Data of Consult Service Date: 09/25/20 Requesting physician: Kaylin Tatum Primary Care Provider: Kishor Barrett [facility] HPI Reason for consult: Dyspnea 45-year-old with severe COPD and asthma who unfortunately is a polysubstance abuser and once again urine tox screen positive for both opiates and cocaine which he admits to along with marijuana and he came in with normal metabolic picture initially but increased work of breathing over time currently breathing over 40 times a minute on 100% non-rebreather and high-flow nasal cannula with marginal oxygen saturations of 88% but significant work of breathing with diaphragmatic and accessory muscle effort He has since developed in a an increasing negative base excess now of 5-1/2 with initial lactate being normal but another 1 is yet pending so he is developing a metabolic acidosis with a pH of 7.28 and a pCO2 of 43 despite a very high minute ventilation indicating that his alveolar ventilation is extremely poor and there is a background history presumably of pulmonary embolism for which she had been on apixaban but he is not aware of a workup indicating medical hypercoagulability and therefore life time need for this and does not have a family history of this Looking at the extent of his hyperinflation and in of the previous CT scan of his chest you would wonder if he might have an underlying alpha-1 antitrypsin deficiency but nonetheless at this point we need to step up to BiPAP which I think would help him with his work of breathing and to further qualify the this progressive lung process I would love to get a dry high-resolution CT scan of his chest but right now he is unable to lie supine Review of Systems Review of Systems: Yes all other systems are reviewed and are negative PMFSH Past Medical History Medical History (Updated 09/25/20 @ 11:09 by Mindi Del Toro MD) Asthma Chronic lung disease Lung problems from crack cocaine Pulmonary emboli Family History Family History Other Family history non-contributory Social History Social History Household Members: Significant Other Housing: House Do you presently have visiting nurse or other home services: No Alcohol intake: never Patient Tobacco Use Status: Current everyday Tobacco user Tobacco use type: Cigarette Patient Interested in Nicotine Replacement: No Patient Given Instructions on How to Stop Smoking: No Use of substances other than those prescribed or required for medical reasons: Unknown Currently Displaying Signs/Symptoms of Drug Intoxication Withdrawal: No Have you been hit, kicked, punched, or otherwise hurt by someone within the past year? If so, by whom?: No Do you feel safe in your current relationship?: No Is there a partner from a previous relationship who is making you feel unsafe now?: No Are you made to feel afraid or neglected: No Advance Directives: No Advance Directives Information Provided: Yes Do you have thoughts of harming others: None Do you have a plan to hurt others: No Plan Recently lost weight without trying: No Eating poorly because of decreased appetite: No Nutrition Risks: No Nutritional Risk Poor oral hygiene: No service: No Current occupational status: unemployed Meds Allergies Allergy/AdvReac Type Severity Reaction Status Date / Time walnut Allergy Unknown SWELLING Verified 08/09/20 13:10 buprenorphine [From Suboxone] Allergy swelling Verified 08/09/20 13:10 in his hands and rash naloxone [From Suboxone] Allergy swelling Verified 08/09/20 13:10 in his hands and rash NSAIDS/ASA Allergy Unknown unknown Uncoded 08/09/20 12:15 walnuts Allergy Unknown anaphylaxis Uncoded 08/09/20 12:15 Active Medications: Current Medications Generic Name Dose Route Start Last Admin Trade Name Freq PRN Reason Stop Dose Admin Acetaminophen 650 mg 09/25/20 01:05 Acetaminophen 325 Mg Tablet PO Q6H PRN Pain, Mild (Pain Scale 1-3) Albuterol/Ipratropium 3 ml 09/25/20 08:00 09/25/20 07:58 Albuterol/Iprat 2.5/0.5mg 3 Ml Ampul.Neb INHALE 3 ml RQ4H WHILE AWAKE EMMA Administration Albuterol/Ipratropium 3 ml 09/25/20 01:05 09/25/20 01:43 Albuterol/Iprat 2.5/0.5mg 3 Ml Ampul.Neb INHALE 3 ml RQ4H PRN Administration Shortness of Breath/Wheezing Apixaban 5 mg 09/25/20 01:05 09/25/20 09:13 Apixaban 5 Mg Tablet PO 5 mg BID EMMA Administration Clonidine HCl 0.1 mg 09/25/20 06:53 Clonidine Hcl 0.1 Mg Tablet PO TID PRN withdrawal Protocol Docusate Sodium 100 mg 09/25/20 01:05 Docusate Sodium 100 Mg Capsule PO DAILY PRN Constipation Hydroxyzine HCl 25 mg 09/25/20 01:29 09/25/20 06:24 Hydroxyzine Hcl 25 Mg Tablet PO 25 mg Q6H PRN Administration anxiety/restlessness Methylprednisolone Sodium Succinate 40 mg 09/25/20 01:05 09/25/20 01:37 Methylprednisolone Sod Succ 40 Mg/Ml Vial IVPUSH 40 mg Q12H EMMA Administration Montelukast Sodium 10 mg 09/25/20 21:00 Montelukast Sodium 10 Mg Tablet PO BEDTIME [facility] Omeprazole 20 mg 09/25/20 06:30 09/25/20 06:24 Omeprazole 20 Mg Capsule. PO Not Given DAILY@0630 [facility] Ondansetron HCl 4 mg 09/25/20 01:05 Ondansetron Hcl 4 Mg/2 Ml Vial IVPUSH Q8H PRN Nausea and Vomiting Pharmacy Consult 1 each 09/24/20 18:43 Consult Rx Perform Med Rec MISCELLANE ONCE PRN Consult order Sodium Chloride 3 ml 09/25/20 01:05 09/25/20 07:59 0.9 % Sodium Chloride Flush 3 Ml Syringe IVFLUSH Not Given QSHIFT [facility] Home Medications Medication Instructions Recorded Confirmed Last Taken Type montelukast 10 mg PO BEDTIME 08/09/20 09/24/20 09/23/20 History omeprazole 20 mg PO DAILY@0630 08/09/20 09/24/20 09/24/20 History beclomethasone dipropionate [Qvar 1 inh INHALATION DAILY 09/24/20 09/24/20 Unknown History RediHaler] Physical Exam Vital Signs: Vital Signs: Last Vital Signs Temp 98 F 09/25/20 10:58 Pulse 110 H 09/25/20 10:58 Resp 22 H 09/25/20 10:58 BP 92/54 L 09/25/20 10:58 Pulse Ox 95 09/25/20 10:58 Oxygen Flow Rate 7 09/24/20 18:26 Body Mass Index 19.8 The clearly in respiratory distress and now on BiPAP he has got a minute ventilation of 19 L with a respiratory rate of 34 but less accessory muscle use Still oriented and nonfocal neurologically Cardiac exam with good bilateral carotid upstrokes no neck vein distension no gallops No livedo and no peripheral edema Abdomen soft no organomegaly Results Labs CBC & Chem 7: 09/25/20 05:17 09/25/20 05:17 Labs: Short CBC 09/24/20 09/25/20 Range/Units 19:56 05:17 WBC 7.9 7.6 (4.8-10.8) X10*3/uL Hgb 11.9 L 10.9 L (14.0-18.0) g/dl Hct 35.6 L 33.5 L (42-52) % Plt Count 184 180 (160-400) X10*3/uL BMP 09/24/20 09/25/20 19:56 05:17 Sodium 141 140 Potassium 4.4 3.7 Chloride 108 110 H Carbon Dioxide 24 16 L BUN 14 13 Creatinine 0.81 0.97 Calcium 8.6 D 8.7 Liver Function 09/24/20 Range/Units 19:56 Total Bilirubin 0.4 (0.0-1.0) mg/dL Direct Bilirubin < 0.2 (0.0-0.5) mg/dL AST 17 (5-37) U/L ALT 8 (0-40) U/L Alkaline Phosphatase 53 (39-117) U/L Albumin 3.9 (3.5-5.0) g/dL Assessment and Plan (1) Cocaine use: Status: Acute (2) Acute and chronic respiratory failure with hypoxia: Status: Acute (3) Shortness of breath: Status: Acute (4) Asthma: Status: Acute (5) Depression: Status: Acute (6) Other pulmonary embolism without acute cor pulmonale: Status: Acute (7) Wheezing: Status: Acute (8) Asthma exacerbation: Qualifiers: Asthma severity: mild Asthma persistence: intermittent Qualified Code(s): J45.21 - Mild intermittent asthma with (acute) exacerbation Status: Acute (9) Metabolic acidosis: Status: Acute (10) Lung problems from crack cocaine: Status: Acute Probable evolving cocaine lung and current pCO2 is 43 in the face of metabolic acidosis which needs to be defined possibilities there being new DKA because his glucose is now 193 or increasing lactate based on possible sepsis or just a nonspecific high output failure related to work of breathing but we need to support a BiPAP which we will supply initially and and clearly with very very poor alveolar ventilation I hope he will not progress to intubation After repairing this issue he needs some form of drug rehab
[2020-09-25 11:47] LABS: Acetaminophen LAB < 1 mcg/mL (<30); Salicylate < 5.0 mg/dL (15-30)
--- NOTE | 2020-09-25 11:52 | HO.PM.IMPN ---
Subjective Subjective Date of Service: 09/25/20 Interval History: Very dyspneic and hypoxic despite HFNC fiO2 100% + NRB, breathing in the 40s with SaO2 dipping down to 77%, currently 94% but with retractions. States fairly rapid onset of asthma/COPD approx 4 yr ago. PE was over 10 yr ago. Physical Exam Vital Signs: Vital Signs: Last Vital Signs Temp 98 F 09/25/20 10:58 Pulse 118 H 09/25/20 11:30 Resp 22 H 09/25/20 10:58 BP 92/54 L 09/25/20 10:58 Pulse Ox 95 09/25/20 10:58 Oxygen Flow Rate 7 09/24/20 18:26 Body Mass Index 19.8 Gen: in severe respiratory distress HEENT: sclera anicteric, moist mucus membranes Neck: supple Lungs: diffuse inspiratory and expiratory wheezes, diminished air entry throughout, supraclavicular retractions present Heart: tachycardic, no murmurs Abd: soft, non-tender, non-distended Ext: no edema Skin: warm/well-perfused Neuro: alert and oriented x3, no focal findings Psych: appropriate affect Objective Data Current Medications Generic Name Dose Route Start Last Admin Trade Name Freq PRN Reason Stop Dose Admin Acetaminophen 650 mg 09/25/20 01:05 Acetaminophen 325 Mg Tablet PO Q6H PRN Pain, Mild (Pain Scale 1-3) Albuterol/Ipratropium 3 ml 09/25/20 08:00 09/25/20 11:29 Albuterol/Iprat 2.5/0.5mg 3 Ml Ampul.Neb INHALE 3 ml RQ4H WHILE AWAKE EMMA Administration Albuterol/Ipratropium 3 ml 09/25/20 01:05 09/25/20 01:43 Albuterol/Iprat 2.5/0.5mg 3 Ml Ampul.Neb INHALE 3 ml RQ4H PRN Administration Shortness of Breath/Wheezing Apixaban 5 mg 09/25/20 01:05 09/25/20 09:13 Apixaban 5 Mg Tablet PO 5 mg BID EMMA Administration Clonidine HCl 0.1 mg 09/25/20 06:53 Clonidine Hcl 0.1 Mg Tablet PO TID PRN withdrawal Protocol Docusate Sodium 100 mg 09/25/20 01:05 Docusate Sodium 100 Mg Capsule PO DAILY PRN Constipation Hydroxyzine HCl 25 mg 09/25/20 01:29 09/25/20 06:24 Hydroxyzine Hcl 25 Mg Tablet PO 25 mg Q6H PRN Administration anxiety/restlessness Methylprednisolone Sodium Succinate 40 mg 09/25/20 01:05 09/25/20 01:37 Methylprednisolone Sod Succ 40 Mg/Ml Vial IVPUSH 40 mg Q12H EMMA Administration Montelukast Sodium 10 mg 09/25/20 21:00 Montelukast Sodium 10 Mg Tablet PO [address]ED[address] [facility] Omeprazole 20 mg 09/25/20 06:30 09/25/20 06:24 Omeprazole 20 Mg Capsule. PO Not Given DAILY@0630 [facility] Ondansetron HCl 4 mg 09/25/20 01:05 Ondansetron Hcl 4 Mg/2 Ml Vial IVPUSH Q8H PRN Nausea and Vomiting Pharmacy Consult 1 each 09/24/20 18:43 Consult Rx Perform Med Rec MISCELLANE ONCE PRN Consult order Sodium Chloride 3 ml 09/25/20 01:05 09/25/20 07:59 0.9 % Sodium Chloride Flush 3 Ml Syringe IVFLUSH Not Given QSHIFT [facility] Labs CBC & Chem 7: 09/25/20 05:17 09/25/20 05:17 Labs: Laboratory Results - last 24 hr 09/24/20 09/24/20 09/24/20 19:12 19:56 19:56 WBC 7.9 RBC 3.65 L Hgb 11.9 L Hct 35.6 L MCV 97.5 MCH 32.6 MCHC 33.4 RDW 12.7 Plt Count 184 MPV 10.3 Immature Gran % (Auto) 0.4 Neut % (Auto) 86.3 H Lymph % (Auto) 8.8 L Petroleum % (Auto) 2.0 Eos % (Auto) 2.0 Baso % (Auto) 0.5 Lymph # (Auto) 0.7 L Petroleum # (Auto) 0.2 Eos # (Auto) 0.2 Baso # (Auto) 0.0 Abs Immat Gran (auto) 0.03 Absolute Neuts (auto) 6.8 Absolute Nucleated RBC 0.000 Nucleated RBC % (auto) 0.0 Smear Tech's Comments PT 14.9 H D INR 1.3 H APTT 35.5 O2 Saturation ABG pH at Pt Temp ABG pH (Temp Correct) ABG pCO2 at Pt Temp ABG pCO2 (Temp Corrct ABG pO2 at Pt Temp ABG pO2 (Temp Correct ABG HCO3 ABG Base Excess (Actual) Sodium Potassium Chloride Carbon Dioxide Anion Gap BUN Creatinine Estim Creat Clear Calc Estimated GFR Random Glucose Lactic Acid Calcium Magnesium Total Bilirubin Direct Bilirubin AST ALT Alkaline Phosphatase Troponin I High Sens Total Protein Albumin Salicylates Urine Opiates Screen Acetaminophen Ur Barbiturates Screen Ur Phencyclidine Scrn Ur Amphetamines Screen U Benzodiazepines Scrn Urine Cocaine Screen U Marijuana (THC) Screen COVID-19 (ELI) Negative COVID-19 [facility] Com See Note 09/24/20 09/24/20 09/24/20 19:56 19:56 19:56 WBC RBC Hgb Hct MCV MCH MCHC RDW Plt Count MPV Immature Gran % (Auto) Neut % (Auto) Lymph % (Auto) Petroleum % (Auto) Eos % (Auto) Baso % (Auto) Lymph # (Auto) Petroleum # (Auto) Eos # (Auto) Baso # (Auto) Abs Immat Gran (auto) Absolute Neuts (auto) Absolute Nucleated RBC Nucleated RBC % (auto) Smear Tech's Comments PT INR APTT O2 Saturation ABG pH at Pt Temp ABG pH (Temp Correct) ABG pCO2 at Pt Temp ABG pCO2 (Temp Corrct ABG pO2 at Pt Temp ABG pO2 (Temp Correct ABG HCO3 ABG Base Excess (Actual) Sodium 141 Potassium 4.4 Chloride 108 Carbon Dioxide 24 Anion Gap 13 BUN 14 Creatinine 0.81 Estim Creat Clear Calc 107.1 Estimated GFR > 60 Random Glucose 119 H Lactic Acid 1.5 Calcium 8.6 D Magnesium 2.1 Total Bilirubin 0.4 Direct Bilirubin < 0.2 AST 17 ALT 8 Alkaline Phosphatase 53 Troponin I High Sens < 3.5 Total Protein 6.2 L Albumin 3.9 Salicylates Urine Opiates Screen Acetaminophen Ur Barbiturates Screen Ur Phencyclidine Scrn Ur Amphetamines Screen U Benzodiazepines Scrn Urine Cocaine Screen U Marijuana (THC) Screen COVID-19 (ELI) COVID-[employer] Com 09/25/20 09/25/20 09/25/20 02:47 05:17 05:17 WBC 7.6 RBC 3.40 L Hgb 10.9 L Hct 33.5 L MCV 98.5 H MCH 32.1 MCHC 32.5 RDW 13.1 Plt Count 180 MPV 10.2 Immature Gran % (Auto) 0.3 Neut % (Auto) 95.2 H Lymph % (Auto) 3.6 L Petroleum % (Auto) 0.9 L Eos % (Auto) 0.0 Baso % (Auto) 0.0 Lymph # (Auto) 0.3 L Petroleum # (Auto) 0.1 Eos # (Auto) 0.0 Baso # (Auto) 0.0 Abs Immat Gran (auto) 0.02 Absolute Neuts (auto) 7.2 Absolute Nucleated RBC 0.000 Nucleated RBC % (auto) 0.0 Smear Tech's Comments VERIFIED PT INR APTT O2 Saturation ABG pH at Pt Temp ABG pH (Temp Correct) ABG pCO2 at Pt Temp ABG pCO2 (Temp Corrct ABG pO2 at Pt Temp ABG pO2 (Temp Correct ABG HCO3 ABG Base Excess (Actual) Sodium 140 Potassium 3.7 Chloride 110 H Carbon Dioxide 16 L Anion Gap 18 BUN 13 Creatinine 0.97 Estim Creat Clear Calc 89.4 Estimated GFR > 60 Random Glucose 193 H D Lactic Acid Calcium 8.7 Magnesium Total Bilirubin Direct Bilirubin AST ALT Alkaline Phosphatase Troponin I High Sens Total Protein Albumin Salicylates Urine Opiates Screen POSITIVE H Acetaminophen Ur Barbiturates Screen Not Detected Ur Phencyclidine Scrn Not Detected Ur Amphetamines Screen Not Detected U Benzodiazepines Scrn Not Detected Urine Cocaine Screen POSITIVE H U Marijuana (THC) Screen Not Detected COVID-19 (ELI) COVID-19 Clin [facility] 09/25/20 09/25/20 09:27 11:06 WBC RBC Hgb Hct MCV MCH MCHC RDW Plt Count MPV Immature Gran % (Auto) Neut % (Auto) Lymph % (Auto) Petroleum % (Auto) Eos % (Auto) Baso % (Auto) Lymph # (Auto) Petroleum # (Auto) Eos # (Auto) Baso # (Auto) Abs Immat Gran (auto) Absolute Neuts (auto) Absolute Nucleated RBC Nucleated RBC % (auto) Smear Tech's Comments PT INR APTT O2 Saturation 96.0 ABG pH at Pt Temp 7.29 L ABG pH (Temp Correct) 7.30 L ABG pCO2 at Pt Temp 42 ABG pCO2 (Temp Corrct 41 ABG pO2 at Pt Temp 92 ABG pO2 (Temp Correct 87 ABG HCO3 20 L ABG Base Excess (Actual) -5.4 Sodium Potassium Chloride Carbon Dioxide Anion Gap BUN Creatinine Estim Creat Clear Calc Estimated GFR Random Glucose Lactic Acid Calcium Magnesium Total Bilirubin Direct Bilirubin AST ALT Alkaline Phosphatase Troponin I High Sens Total Protein Albumin Salicylates < 5.0 L Urine Opiates Screen Acetaminophen < 1 Ur Barbiturates Screen Ur Phencyclidine Scrn Ur Amphetamines Screen U Benzodiazepines Scrn Urine Cocaine Screen U Marijuana (THC) Screen COVID-19 (ELI) COVID-19 Clin Com Impressions Chest X-Ray 09/24/20 18:41 IMPRESSION: Chronically hyperinflated but otherwise no evidence of acute disease. Quality Stroke Does the patient have a stroke diagnosis?: No VTE Prior VTE?: Yes VTE Risk Level:: Medical - moderate - high VTE Device Contraindication: Treatment Not Indicated VTE Drug Contraindication: N/A - Med Ordered Assessment and Plan (1) Acute and chronic respiratory failure with hypoxia: Status: Acute Assessment and Plan: hospital d#2 45yo M with asthma ?COPD, onset about 4 yr ago, remote PE on lifelong apixaban, polysubstance [cocaine/opioid/nicotine] abuse admitted for acute hypoxic respiratory failure, asthma exacerbation # acute hypoxic respiratory failure - given concern for impending respiratory collapse, rn picu Dr Del Toro consulted and pt will be transferred to ICU for BiPAP. will order stat ABG. # acute asthma/COPD exacerbation - continue IV steroids, also given 2g of Mg sulfate this am, continue bronchodilators. suspect exacerbated by cocaine abuse but also concern for A1AT deficiency and should have outpt pulm f/u # polysubstance abuse - CARE team consult, prn hydroxyazine, sobriety counseling # hx of PE - continue apixaban
[2020-09-25 11:55] LABS: Lactic Acid 3.4 mmol/L (0.5-2.0)
[2020-09-25 12:09] LABS: ABG Base Excess -2.3 mmol/L; ABG HCO3 22 mmol/L (22-26); ABG pCO2 37 mmHg (32-45); ABG pCO2 TC 36 mmHg (32-45); ABG pH 7.37 (7.35-7.45); ABG pH TC 7.39 (7.35-7.45); ABG pO2 81 mmHg (83-108); ABG pO2 TC 76 (83-108)
--- NOTE | 2020-09-25 12:28 | PC.NURSE ---
pt tolerating biPAP, continues to report he feels like he isn't breathing well, anxious. HR increases to 130 with minor activity, pt sat at bedside to use urinal, hr 135.
[2020-09-25 13:21] LABS: Reflex Lactate? Lactic Acid Added
--- NOTE | 2020-09-25 13:35 | PC.NURSE ---
pt has been tolerating biPAP, resting quietly with respiratory rate 24. He has mild intercostal retractions improved from earlier
[2020-09-25 14:12] LABS: ~Lactic Acid-LAB USE ONLY 2.4 mmol/L (0.5-2.0)
--- NOTE | 2020-09-25 15:16 | PC.NURSE ---
pt transferred to ICU via stretcher with RN and hospitality house supervisor. Report to ALFONSO Bee
[2020-09-25 15:32] LABS: Reflex Lactate? 2 Y
[2020-09-25 16:47] LABS: ~Lactic Acid-LAB USE ONLY 2.5 mmol/L (0.5-2.0)
--- NOTE | 2020-09-25 16:47 | MHC.CARE ---
Pt was referred to CARE team while on medical floor due to c/o polysubstance abuse. CARE attempted to meet w pt for this consult however he was wearing a Bipap and appeared anxiously panting/struggling to breath. CARE alerted nurse Ruth. Pt was later transferred to ICU. Pt can be re-consult to CARE when medically appropriate.
[2020-09-25] MEDS: Lactated Ringers 1,000 ML 100 ML IVCONT ×2 (17:35→21:23)
--- NOTE | 2020-09-25 18:59 | PC.NURSE ---
Pt tx to icu. Requesting to stay off bipap mak. MAYEN to bedside, said if WOB worsens that bipap would need to be put on. Pt on NRB, stating hes feeling better. O2 sats >95%. RR 22-30. HR ranging from 109-120s, increases with activity. LR starter for low systolic BP. Tolerating well. Offered to help pt repo self, stated he was comfortable. Pt ate dinner, tolerated well.
[2020-09-25] MEDS: Montelukast Sodium 10 MG TABLET PO (20:17)
[2020-09-25] MEDS: levoFLOXacin/D5W 750 MG/150 ML PIGGYBACK 100 MG IV (23:02)
[2020-09-26] VITALS (13 sets, daily range): BP systolic 94–129; BP diastolic 55–93; PULSE 77–108; RESP 17–22; TEMP 36.6–37.1; O2SAT 90–100
[2020-09-26] MEDS: 0.9 % Sodium Chloride Flush 3 ML SYRINGE IVFLUSH (00:40)
[2020-09-26] MEDS: methylPREDNISolone Sod Succ 40 MG/ML VIAL IVPUSH (02:24)
[2020-09-26 05:45] LABS: VBG Base Excess 24.8 mmol/L; VBG HCO3 55 mmol/L (22-26); VBG pCO2 93 mmHg; VBG pH 7.37 (7.32-7.43); VBG pO2 37 mmHg
[2020-09-26] MEDS: Omeprazole 20 MG CAPSULE.DR PO (05:46)
[2020-09-26 06:13] LABS: Hematocrit 34.3 % (42-52); Hemoglobin 11.1 g/dl (14.0-18.0); Mean Corpuscular HGB Conc 32.4 g/dl (31.0-36.0); Mean Corpuscular Hemoglobin 31.9 pg (27.0-33.0); Mean Corpuscular Volume 98.6 fL (80-98); Mean Platelet Volume 10.4 fL (9.4-12.4); Platelet Count 198 X10*3/uL (160-400); Red Blood Count 3.48 X10*6/uL (4.60-5.80); Red Cell Distribution Width 13.5 % (11.0-16.0); White Blood Count 17.9 X10*3/uL (4.8-10.8)
[2020-09-26 06:19] LABS: INTERNATIONAL NORM RATIO 1.2 (0.9-1.1); Prothrombin Time 13.9 SEC (10.8-13.0)
[2020-09-26 06:21] LABS: Partial Thromboplastin Time 28.9 SEC (24.1-38.0)
[2020-09-26 06:51] LABS: Venous Blood Gas Refer to POC result
[2020-09-26 06:52] LABS: Alanine Aminotransferase 11 U/L (0-40); Albumin Level 3.7 g/dL (3.5-5.0); Alkaline Phosphatase 49 U/L (39-117); Anion Gap 14 (12-20); Aspartate Amino Transferase 19 U/L (5-37); Bilirubin Direct < 0.2 mg/dL (0.0-0.5); Bilirubin Total < 0.2 mg/dL (0.0-1.0); Blood Urea Nitrogen 17 mg/dL (9-16); Calcium 8.9 mg/dL (8.4-10.2); Carbon Dioxide 24 mmol/L (22-29); Chloride 109 mmol/L (96-108); Creatinine Clr Calc Pharmacy 108.4; Estimated Glomerular Filt Rate > 60; Glucose Random 118 mg/dL (60-115); Phosphorus 2.5 mg/dL (2.7-4.5); Potassium 4.5 mmol/L (3.3-5.1); Sodium 142 mmol/L (135-145); Total Protein 5.6 g/dL (6.5-8.0)
[2020-09-26] MEDS: methylPREDNISolone Sod Succ 125 MG/2 ML VIAL 60 MG IVPUSH (07:00)
[2020-09-26] MEDS: Lactated Ringers 1,000 ML 100 ML IVCONT (07:10)
[2020-09-26 07:49] LABS: VBG Base Excess 5.3 mmol/L; VBG HCO3 31 mmol/L (22-26); VBG pCO2 51 mmHg; VBG pH 7.38 (7.32-7.43); VBG pO2 45 mmHg
[2020-09-26 07:56] LABS: Venous Blood Gas Refer to POC result
[2020-09-26] MEDS: Apixaban 5 MG TABLET PO (08:18)
--- NOTE | 2020-09-26 10:43 | PM.CCPN ---
Subjective Subjective Date of Service: 09/26/20 Interval History: 45-year-old asthenic male with significant COPD and asthma for a number of years on bronchodilator therapy but a continued polysubstance abuser and currently positive for opiate and cocaine abuse presented with acute and then progressive hypercarbic respiratory failure in the face of status asthmaticus and of course acute on chronic hypoxic respiratory failure and I questioned him about hypercoagulable workup because he is on apixaban for a presumptive prior diagnosis of pulmonary embolism without evidence as far as he knows of peripheral venous thrombosis Critical Care Time (minutes): 35 Physical Exam Vital Signs: Vital Signs: Last Vital Signs Temp 98.1 F 09/26/20 08:00 Pulse 93 09/26/20 10:00 Resp 20 09/26/20 10:00 BP 125/78 09/26/20 10:00 Pulse Ox 94 09/26/20 10:00 Oxygen Flow Rate 7 09/24/20 18:26 Body Mass Index 19.8 Const: Other: Much improved work of breathing respiratory rate in the 20s without accessory muscle use and no longer in status Neurologically intact Cardiac exam normal with no neck vein distension and good bilateral carotid upstrokes Abdomen benign no organomegaly no peripheral edema no acrocyanosis Objective Data Labs CBC & Chem 7: 09/26/20 05:41 09/26/20 05:41 Labs: Laboratory Results - last 24 hr 09/25/20 09/25/20 09/25/20 11:06 11:06 12:02 WBC RBC Hgb Hct MCV MCH MCHC RDW Plt Count MPV Immature Gran % (Auto) Neut % (Auto) Lymph % (Auto) [place] % (Auto) Eos % (Auto) Baso % (Auto) Lymph # (Auto) [place] # (Auto) Eos # (Auto) Baso # (Auto) Abs Immat Gran (auto) Absolute Neuts (auto) Absolute Nucleated RBC Nucleated RBC % (auto) PT INR APTT O2 Saturation 96.0 ABG pH at Pt Temp 7.37 ABG pH (Temp Correct) 7.39 ABG pCO2 at Pt Temp 37 ABG pCO2 (Temp Corrct 36 ABG pO2 at Pt Temp 81 L ABG pO2 (Temp Correct 76 L ABG HCO3 22 ABG Base Excess (Actual) -2.3 VBG pH VBG pCO2 VBG pO2 VBG HCO3 VBG O2 Saturation VBG Base Excess Sodium Potassium Chloride Carbon Dioxide Anion Gap BUN Creatinine Estim Creat Clear Calc Estimated GFR Random Glucose Lactic Acid 3.4 H* Lactic Acid Fup @ 2Hr Lactic Acid Fup @ 4Hr Calcium Phosphorus Total Bilirubin Direct Bilirubin AST ALT Alkaline Phosphatase Total Protein Albumin Salicylates < 5.0 L Acetaminophen < 1 09/25/20 09/25/20 09/26/20 13:29 15:44 05:38 WBC RBC Hgb Hct MCV MCH MCHC RDW Plt Count MPV Immature Gran % (Auto) Neut % (Auto) Lymph % (Auto) [place] % (Auto) Eos % (Auto) Baso % (Auto) Lymph # (Auto) [place] # (Auto) Eos # (Auto) Baso # (Auto) Abs Immat Gran (auto) Absolute Neuts (auto) Absolute Nucleated RBC Nucleated RBC % (auto) PT INR APTT O2 Saturation ABG pH at Pt Temp ABG pH (Temp Correct) ABG pCO2 at Pt Temp ABG pCO2 (Temp Corrct ABG pO2 at Pt Temp ABG pO2 (Temp Correct ABG HCO3 ABG Base Excess (Actual) VBG pH 7.37 VBG pCO2 93 VBG pO2 37 VBG HCO3 55 H VBG O2 Saturation 63.0 VBG Base Excess 24.8 Sodium Potassium Chloride Carbon Dioxide Anion Gap BUN Creatinine Estim Creat Clear Calc Estimated GFR Random Glucose Lactic Acid Lactic Acid Fup @ 2Hr 2.4 H* Lactic Acid Fup @ 4Hr 2.5 H* Calcium Phosphorus Total Bilirubin Direct Bilirubin AST ALT Alkaline Phosphatase Total Protein Albumin Salicylates Acetaminophen 09/26/20 09/26/20 09/26/20 05:41 05:41 05:41 WBC 17.9 H RBC 3.48 L Hgb 11.1 L Hct 34.3 L MCV 98.6 H MCH 31.9 MCHC 32.4 RDW 13.5 Plt Count 198 MPV 10.4 Immature Gran % (Auto) Cancelled Neut % (Auto) Cancelled Lymph % (Auto) Cancelled [place] % (Auto) Cancelled Eos % (Auto) Cancelled Baso % (Auto) Cancelled Lymph # (Auto) Cancelled [place] # (Auto) Cancelled Eos # (Auto) Cancelled Baso # (Auto) Cancelled Abs Immat Gran (auto) Cancelled Absolute Neuts (auto) Cancelled Absolute Nucleated RBC 0.000 Nucleated RBC % (auto) 0.0 PT 13.9 H INR 1.2 H APTT 28.9 O2 Saturation ABG pH at Pt Temp ABG pH (Temp Correct) ABG pCO2 at Pt Temp ABG pCO2 (Temp Corrct ABG pO2 at Pt Temp ABG pO2 (Temp Correct ABG HCO3 ABG Base Excess (Actual) VBG pH VBG pCO2 VBG pO2 VBG HCO3 VBG O2 Saturation VBG Base Excess Sodium 142 Potassium 4.5 D Chloride 109 H Carbon Dioxide 24 Anion Gap 14 BUN 17 H Creatinine 0.80 Estim Creat Clear Calc 108.4 Estimated GFR > 60 Random Glucose 118 H D Lactic Acid Lactic Acid Fup @ 2Hr Lactic Acid Fup @ 4Hr Calcium 8.9 Phosphorus 2.5 L Total Bilirubin < 0.2 Direct Bilirubin < 0.2 AST 19 ALT 11 Alkaline Phosphatase 49 Total Protein 5.6 L Albumin 3.7 Salicylates Acetaminophen 09/26/20 07:42 WBC RBC Hgb Hct MCV MCH MCHC RDW Plt Count MPV Immature Gran % (Auto) Neut % (Auto) Lymph % (Auto) [place] % (Auto) Eos % (Auto) Baso % (Auto) Lymph # (Auto) [place] # (Auto) Eos # (Auto) Baso # (Auto) Abs Immat Gran (auto) Absolute Neuts (auto) Absolute Nucleated RBC Nucleated RBC % (auto) PT INR APTT O2 Saturation ABG pH at Pt Temp ABG pH (Temp Correct) ABG pCO2 at Pt Temp ABG pCO2 (Temp Corrct ABG pO2 at Pt Temp ABG pO2 (Temp Correct ABG HCO3 ABG Base Excess (Actual) VBG pH 7.38 VBG pCO2 51 VBG pO2 45 VBG HCO3 31 H VBG O2 Saturation 75.0 VBG Base Excess 5.3 Sodium Potassium Chloride Carbon Dioxide Anion Gap BUN Creatinine Estim Creat Clear Calc Estimated GFR Random Glucose Lactic Acid Lactic Acid Fup @ 2Hr Lactic Acid Fup @ 4Hr Calcium Phosphorus Total Bilirubin Direct Bilirubin AST ALT Alkaline Phosphatase Total Protein Albumin Salicylates Acetaminophen Microbiology Microbiology Results: Microbiology 09/24/20 19:56 Blood - Venous Blood Culture - Preliminary No growth after 24 hours. 09/24/20 19:56 Blood - Venous Blood Culture - Preliminary No growth after 24 hours. Progress Note: A&P Assessment and plan (1) Lung problems from crack cocaine: Status: Acute (2) Metabolic acidosis: Status: Acute (3) Cocaine use: Status: Acute (4) Acute bacterial bronchitis: Status: Acute (5) Acute and chronic respiratory failure with hypoxia: Status: Acute (6) Chronic respiratory failure with hypoxia: Status: Acute (7) Pain in right axilla: Status: Acute (8) Shortness of breath: Status: Acute (9) Chest wall pain: Status: Acute (10) Asthma: Status: Acute (11) Depression: Status: Acute (12) Other pulmonary embolism without acute cor pulmonale: Status: Acute (13) Wheezing: Status: Acute (14) Physical exam: Status: Acute (15) Asthma exacerbation: Status: Acute (16) Asthma with exacerbation: Status: Acute Assessment and Plan: Plan is to continue high-dose steroids with at 1 milligram/kilogram methylprednisolone twice daily and were awaiting the alpha-1 antitrypsin and I sent a sed rate today and his CT scan of his chest just showed a a modest subpleural basilar infiltrate and I do not know if this is part of a eosinophilic/hypersensitivity issue because it is so limited and there was 1 time when he had increased eosinophil so I sent an IgE level because he may need higher dose in long-term steroids but at this point no longer necessity for BiPAP and I am looking for a me evidence of that diagnosis of pulmonary embolism and whether not he is truly hypercoagulable and some of those records might be in possession of Dr. nichols Quality Stroke Does the patient have a stroke diagnosis?: No VTE Prior VTE?: Yes VTE Risk Level:: Medical - moderate - high VTE Device Contraindication: Treatment Not Indicated VTE Drug Contraindication: N/A - Med Ordered
[2020-09-26] MEDS: Albuterol/Iprat 2.5/0.5MG 3 ML AMPUL.NEB INHALE ×2 (11:55→15:12)
--- NOTE | 2020-09-26 12:27 | MHC.CM.PN ---
Met with pt in ICU to discuss d/c planning: Pt resides with significant other, unemployed, relies on others for transportation and does not have any services. Pt has a hx of substance abuse and was recently at an INPT detox center in [place] prior to [facility] [place]. Pt repeatedly verbalized wanting to return to an INPT rehab center with initiation of MAT. He states he cannot take both Suboxone and methadone d/t allergic reaction and/or intolerance. Pt will transfer to [place] today and can be seen by CARE team once medically stable. He reports no issues obtaining medications including those for his asthma and states he has transportation home. CM to follow for changes in d/c plan
--- NOTE | 2020-09-26 13:43 | MHC.RECOVSUP ---
Recovery Support note: This business writer met with patient to discuss his substance use and treatment options. Patient reports after his relative he started using heavily and he has not had a period of sobriety since. However, patient reports he has cut back significantly. Patient reports he was previously using 50 bags a day and he is now using 1-2 bags of heroin a day. Patient plans to stop using entirely. Patient reports that he was previously on methadone and had issues with the medication. Patient reports he got up to 80mg and would be falling asleep by the time he got to his car. Patient reports that it was going through his body too fast and that they suggested dosing twice a day however this was not convenient for his schedule. Patient reports he tried Suboxone after this however states he had a horrible allergic reaction. Patient reports his first dose resulted in precipitated withdrawal and his second caused his arm, throat and neck to swell. Patient reports he would like to get the Vivitrol injection however he wants to remain in treatment until he is able to take it. Discussed with patient that he may not be a good candidate for detox since he has been in the hospital for several days and he likely will not need inpatient detox after discharge. Patient acknowledged. Discussed [facility] with patient as an alternative and patient is open to a referral to CSS facilities. Patient reports he would be willing to go anywhere. Discussed the CSS referral process with patient and that he may need to continue following up with the facilities after discharge until a bed becomes available. Patient acknowledged. This business writer will follow up with patient tomorrow to verify his interest in CSS and to complete applications for admission to CSS facilities.
--- NOTE | 2020-09-26 16:17 | P.DS_ITS ---
DS: Providers Provider Date of Service: 09/26/20 Date of admission: 09/24/20 22:48 Primary care physician: TONI Dunn Consults: 09/25/20 07:46 Consult to Care Team Routine Comment: Reason for consultation: cocaine, opioid abuse 09/26/20 14:14 Addiction Medicine Routine Consulting Provider: Leona Sheikh Reason for consultation: opioid withdrawal DS: Diagnosis Discharge Diagnosis (1) Lung problems from crack cocaine: Status: Acute (2) Metabolic acidosis: Status: Acute (3) Cocaine use: Status: Acute (4) Acute bacterial bronchitis: Status: Acute (5) Acute and chronic respiratory failure with hypoxia: Status: Acute (6) Asthma exacerbation: Status: Acute (7) Asthma: Status: Acute (8) Left against medical advice: Status: Acute DS: Medications Discharge Medications Home Medications: Home Medications Medication Instructions Recorded Confirmed montelukast 10 mg PO BEDTIME 08/09/20 09/24/20 omeprazole 20 mg PO DAILY@0630 08/09/20 09/24/20 beclomethasone dipropionate [Qvar 1 inh INHALATION DAILY 09/24/20 09/24/20 RediHaler] Previous Rx's Medication Instructions Recorded albuterol sulfate 0.63 mg/3 mL 0.63 mg INHALATION Q4H PRN 30 Days 08/17/20 solution for nebulization #90 ml albuterol sulfate 90 mcg/actuation 2 puff INHALATION Q4H PRN 30 Days 08/17/20 aerosol inhaler #8.5 g apixaban 5 mg tablet 5 mg PO BID #120 tab 09/07/20 DS: Summary Hospital Course Hospital Course: From admission H+P by hospitalist Niles Cordova, 09/25/20: This is a 45-year-old male with past medical history of asthma, pulmonary emboli on apixaban who presents to the hospital with complaints of shortness of breath. Patient reports that he has been having asthma exacerbation for the past 1 week, but last night had an asthma attack, used his DuoNeb as well as inhalers with some relief, went back to bed, but woke up with severe shortness of breath, wheezing so decided to come to the hospital. He denies any fever or chills, reports some cough with no sputum production, chest tightness from the coughing as well as the wheezing which improved with a breathing treatments received in the hospital, denies any abdominal pain nausea or vomiting, no diarrhea constipation, no urinary symptoms and no lower extremity edema. patient also reports that he uses cocaine and heroin and also smokes about 5-6 cigarettes daily on arrival to the ED patient hemodynamically stable with no significant abnormal vitals except for heart rate that ranges between 100-110 Labs are significant for WBC count of 7.9, hemoglobin of 11.9 otherwise unremarkable. UDS positive for cocaine as well as opioids chest x-ray shows no evidence of acute disease The patient was admitted to the [facility] [place] [place] and treated with IV steroids, IV magnesium sulfate, and nebulized bronchodilators. He became extremely dyspneic and hypoxic despite high-flow nasal cannula and non-rebreather mask. He was transferred to the ICU for BiPAP support. He recovered quickly and was downgraded to the IM on hospital day #2. His girlfriend brought him street drugs, which were confiscated by security. Soon afterward, the patient insisted on signing out AMA, citing a family emergency. I counseled him on the gravity of leaving the hospital during such a severe asthma exacerbation, but could not talk him out of it. I discussed the problem of his opioid dependence and offered to start him on MAT with Suboxone but he refused and insisted on leaving despite counseling on the risks of disability and . He was prescribed 3 days of prednisone 40 mg/d in an attempt to reduce the harm from his poor decision. Status at Discharge Overall status at discharge: patient is back to baseline Time Spent with Patient Time attestation: Total time spent providing and/or coordinating discharge services: <30 as patient left AMA Discharge coordination time: Less than 30 minutes Quality: Stroke Does the patient have a stroke diagnosis?: No Physical Exam Vital Signs: Vital Signs: Last Vital Signs Temp 98.7 F 09/26/20 15:08 Pulse 107 H 09/26/20 15:15 Resp 19 09/26/20 15:08 BP 110/62 09/26/20 15:08 Pulse Ox 98 09/26/20 15:08 Oxygen Flow Rate 7 09/24/20 18:26 Body Mass Index 19.8 Gen: speaking in complete sentences, no retractions HEENT: sclera anicteric, moist mucus membranes Neck: supple Lungs: diffuse expiratory wheezing Heart: regular rate and rhythm, no murmurs Abd: soft, non-tender, non-distended Ext: no edema Skin: warm/well-perfused Neuro: alert and oriented x3, no focal findings Psych: appropriate affect DS: Data Data Completed and Pending Completed studies during hospitalization [Text1]: Laboratory Results WBC 17.9 X10*3/uL (4.8-10.8) H 09/26/20 05:41 RBC 3.48 X10*6/uL (4.60-5.80) L 09/26/20 05:41 Hgb 11.1 g/dl (14.0-18.0) L 09/26/20 05:41 Hct 34.3 % (42-52) L 09/26/20 05:41 MCV 98.6 fL (80-98) H 09/26/20 05:41 MCH 31.9 pg (27.0-33.0) 09/26/20 05:41 MCHC 32.4 g/dl (31.0-36.0) 09/26/20 05:41 RDW 13.5 % (11.0-16.0) 09/26/20 05:41 Plt Count 198 X10*3/uL (160-400) 09/26/20 05:41 MPV 10.4 fL (9.4-12.4) 09/26/20 05:41 Immature Gran % (Auto) Cancelled 09/26/20 05:41 Neut % (Auto) Cancelled 09/26/20 05:41 Lymph % (Auto) Cancelled 09/26/20 05:41 [place] % (Auto) Cancelled 09/26/20 05:41 Eos % (Auto) Cancelled 09/26/20 05:41 Baso % (Auto) Cancelled 09/26/20 05:41 Lymph # (Auto) Cancelled 09/26/20 05:41 [place] # (Auto) Cancelled 09/26/20 05:41 Eos # (Auto) Cancelled 09/26/20 05:41 Baso # (Auto) Cancelled 09/26/20 05:41 Abs Immat Gran (auto) Cancelled 09/26/20 05:41 Absolute Neuts (auto) Cancelled 09/26/20 05:41 Absolute Nucleated RBC 0.000 X10*3/uL (0.0-0.012) 09/26/20 05:41 Nucleated RBC % (auto) 0.0 /100WBC (0.0-0.2) 09/26/20 05:41 Smear Tech's Comments VERIFIED 09/25/20 05:17 PT 13.9 SEC (10.8-13.0) H 09/26/20 05:41 INR 1.2 (0.9-1.1) H 09/26/20 05:41 APTT 28.9 SEC (24.1-38.0) 09/26/20 05:41 O2 Saturation 96.0 % 09/25/20 12:02 ABG pH at Pt Temp 7.37 (7.35-7.45) 09/25/20 12:02 ABG pH (Temp Correct) 7.39 (7.35-7.45) 09/25/20 12:02 ABG pCO2 at Pt Temp 37 mmHg (32-45) 09/25/20 12:02 ABG pCO2 (Temp Corrct 36 mmHg (32-45) 09/25/20 12:02 ABG pO2 at Pt Temp 81 mmHg (83-108) L 09/25/20 12:02 ABG pO2 (Temp Correct 76 (83-108) L 09/25/20 12:02 ABG HCO3 22 mmol/L (22-26) 09/25/20 12:02 ABG Base Excess (Actual) -2.3 mmol/L 09/25/20 12:02 VBG pH 7.38 (7.32-7.43) 09/26/20 07:42 VBG pCO2 51 mmHg 09/26/20 07:42 VBG pO2 45 mmHg 09/26/20 07:42 VBG HCO3 31 mmol/L (22-26) H 09/26/20 07:42 VBG O2 Saturation 75.0 % 09/26/20 07:42 VBG Base Excess 5.3 mmol/L 09/26/20 07:42 Sodium 142 mmol/L (135-145) 09/26/20 05:41 Potassium 4.5 mmol/L (3.3-5.1) D 09/26/20 05:41 Chloride 109 mmol/L (96-108) H 09/26/20 05:41 Carbon Dioxide 24 mmol/L (22-29) 09/26/20 05:41 Anion Gap 14 (12-20) 09/26/20 05:41 BUN 17 mg/dL (9-16) H 09/26/20 05:41 Creatinine 0.80 mg/dL (0.5-1.4) 09/26/20 05:41 Estim Creat Clear Calc 108.4 09/26/20 05:41 Estimated GFR > 60 09/26/20 05:41 Random Glucose 118 mg/dL (60-115) H D 09/26/20 05:41 Lactic Acid 3.4 mmol/L (0.5-2.0) H* 09/25/20 11:06 Lactic Acid Fup @ 2Hr 2.4 mmol/L (0.5-2.0) H* 09/25/20 13:29 Lactic Acid Fup @ 4Hr 2.5 mmol/L (0.5-2.0) H* 09/25/20 15:44 Calcium 8.9 mg/dL (8.4-10.2) 09/26/20 05:41 Phosphorus 2.5 mg/dL (2.7-4.5) L 09/26/20 05:41 Magnesium 2.1 mg/dL (1.6-2.6) 09/24/20 19:56 Total Bilirubin < 0.2 mg/dL (0.0-1.0) 09/26/20 05:41 Direct Bilirubin < 0.2 mg/dL (0.0-0.5) 09/26/20 05:41 AST 19 U/L (5-37) 09/26/20 05:41 ALT 11 U/L (0-40) 09/26/20 05:41 Alkaline Phosphatase 49 U/L (39-117) 09/26/20 05:41 Troponin I High Sens < 3.5 ng/L (<3.5-35.0) 09/24/20 19:56 Total Protein 5.6 g/dL (6.5-8.0) L 09/26/20 05:41 Albumin 3.7 g/dL (3.5-5.0) 09/26/20 05:41 Salicylates < 5.0 mg/dL (15-30) L 09/25/20 11:06 Urine Opiates Screen POSITIVE (Not Detect) H 09/25/20 02:47 Acetaminophen < 1 mcg/mL (<30) 09/25/20 11:06 Ur Barbiturates Screen Not Detected (Not Detect) 09/25/20 02:47 Ur Phencyclidine Scrn Not Detected (Not Detect) 09/25/20 02:47 Ur Amphetamines Screen Not Detected (Not Detect) 09/25/20 02:47 U Benzodiazepines Scrn Not Detected (Not Detect) 09/25/20 02:47 Urine Cocaine Screen POSITIVE (Not Detect) H 09/25/20 02:47 U Marijuana (THC) Screen Not Detected (Not Detect) 09/25/20 02:47 COVID-19 (ELI) Negative (Negative) 09/24/20 19:12 COVID-19 Clin Com See Note 09/24/20 19:12 Impressions Chest X-Ray 09/24/20 18:41 IMPRESSION: Chronically hyperinflated but otherwise no evidence of acute disease. Chest CT 09/25/20 21:22 IMPRESSION: A small patchy opacity in the left lower lobe may be a focal infectious/inflammatory process. Discharge Plan Discharge Patient Disposition: Left Against Medical Advice Discharge Diagnosis: asthma exacerbation, LEFT AMA Referrals: Kishor Barrett, NUCLEAR MEDICINE SUPERVISOR-BC [Primary Care Provider] - 1 Week Discharge Medications: New prednisone 20 mg tablet 40 mg PO DAILY Qty: 6 RF: 0 Continued albuterol sulfate 90 mcg/actuation HFA aerosol inhaler 2 puff inhalation Q4H PRN (Reason: bronchospasm) 30 Days Qty: 8.5 RF: 2 albuterol sulfate 0.63 mg/3 mL solution for nebulization 0.63 mg inhalation Q4H PRN (Reason: bronchospasm) 30 Days Qty: 90 RF: 0 Eliquis 5 mg tablet 5 mg PO BID Qty: 120 RF: 0 Qvar RediHaler 80 mcg/actuation Hfa Aerosol Breath Activated 1 inh INHALATION DAILY RF: 0 omeprazole 20 mg capsule,delayed release(DR/EC) 20 mg PO DAILY@0630 RF: 0 montelukast 10 mg tablet 10 mg PO BEDTIME RF: 0 Discharge Orders: Discharge Order (Routine); Ordered 09/26/20 Ordered By: Kaylin Tatum Care Plan Goals: relief of breathing problems Health Concerns: asthma exacerbation requiring ICU level of care decision to sign out AGAINST MEDICAL ADVICE Plan of Treatment: return to the hospital RASHARD until you return to the hospital, take prednisone 40 mg daily x 3 days Assessment: as above
--- NOTE | 2020-09-26 16:19 | PC.NURSE ---
Patient wanting to leave against medical advice. MD notified and at bedside to evaluate patient. MD educated patient on the risks of leaving against medical advice versus the benefits of receiving treatment. Patient alert and oriented x 3, verbally states he understands all consequences. IV removed, registered nurse cardiac removed. AMA paper signed.
[2020-09-27 07:49] LABS: HBS Num1 1.35 mIU/mL (0-7.99); HBc Num1 0.07 S/CO (0.00-0.79); HBsAGNum1 0.19 S/CO (0.00-0.99); HIV AB/AG Nonreactive (Nonreactive); HIV Num 1 0.06 S/CO (0.00-0.99); Hepatitis B Core Antibody Nonreactive (Nonreactive); Hepatitis B Surface Antigen Negative (Negative); ~HepC Num1 0.06 S/CO (0.00-0.79); ~Hepatitis B Surface Antibody NONREACTIVE (Nonreactive); ~Hepatitis C Antibody Nonreactive (Nonreactive)
[2020-09-27 13:51] LABS: Alpha 1 Anti-trypsin 170 mg/dL (83-199)
[2020-09-29 12:48] LABS: Beta Hydroxybutyric Acid 0.5 mg/dL (0.0-3.0)
== END 2020-09-26 16:29 | disposition left against medical advice (07) | DRG 816 ==
LOC: HO.ED 20:28 → HO.EDOVER 09-25 → HO.IMC 09-25 00:11 → HO.ICU 09-25 14:13 → HO.IMC 09-26 11:55
PROVIDERS: Internal Medicine Cardiovascular Disease; Physician Assistant; Admitting Provider Internal Medicine; Emergency Provider Internal Medicine; PCP Nurse Practitioner Family; Visit Provider Family Medicine
DX: T40.5X1A Poisoning by cocaine, accidental (unintentional), initial encounter (principal); J96.21 Acute and chronic respiratory failure with hypoxia; J45.22 Mild intermittent asthma with status asthmaticus; E87.2 Acidosis; J44.1 Chronic obstructive pulmonary disease with (acute) exacerbation; F32.9 Major depressive disorder, single episode, unspecified; F17.210 Nicotine dependence, cigarettes, uncomplicated; F19.10 Other psychoactive substance abuse, uncomplicated; Z71.6 Tobacco abuse counseling; Z86.711 Personal history of pulmonary embolism; J70.4 Drug-induced interstitial lung disorders, unspecified; Y92.9 Unspecified place or not applicable; Z20.822 Contact with and (suspected) exposure to COVID-19; Z88.6 Allergy status to analgesic agent; Z79.01 Long term (current) use of anticoagulants; Z79.899 Other long term (current) drug therapy
CPT/HCPCS: 36415; 71045; 71250; 80048; 80076; 80143; 80179; 80307; 82103; 83605; 83735; 84100; 84484; 85025; 85027; 85610; 85730; 86704; 86706; 86803; 87040; 87205; 87340; 87389; 87635; 93005; 94640; 94644; 94645; 94660; 99285; J1956; J2270; J2920; J2930; J3475

== ENCOUNTER 2021-03-29 09:27 | Emergency (ER) | payer OTHER, SELFPAY ==
[2021-03-29 09:54] VITALS: BP 110/93; PULSE 112; RESP 18; TEMP 36.8; O2SAT 88; BMI 23.0
--- NOTE | 2021-03-29 10:37 | PC.NURSE ---
THIS RN WENT TO PT'S BEDSIDE, PT WAS FULLY DRESSED IN STREET CLOTHING, PT STATES I NEED TO LEAVE BEFAUSE I JUST FOUND OUT THAT MY GRANDMOTHER .
--- NOTE | 2021-03-29 10:40 | PC.NURSE ---
AWARE OF PT ELOPEMENT.
== END 2021-03-29 10:40 | disposition left against medical advice (07) ==
PROVIDERS: Emergency Provider Emergency Medicine; PCP Nurse Practitioner Family
DX: R06.02 Shortness of breath (principal)
CPT/HCPCS: 99281; 99283

== ENCOUNTER 2021-03-29 16:47 | Outpatient (REF) | payer OTHER, SELFPAY ==
[2021-03-29 17:34] LABS: Influenza A PCR NEGATIVE (Negative); Influenza B PCR NEGATIVE (Negative); Resp Syncy Virus RNA Qual PCR NEGATIVE (Negative); SARS COV2 PCR INHOUSE NEGATIVE (Negative)
== END 2021-03-29 16:48 | disposition home or self-care (01) ==
LOC: HO.LNP 16:47
PROVIDERS: Visit Provider Internal Medicine
DX: Z20.822 Contact with and (suspected) exposure to COVID-19 (principal); R43.9 Unspecified disturbances of smell and taste
CPT/HCPCS: 0241U

== ENCOUNTER 2021-08-29 03:53 | Inpatient (IN) | payer OTHER, SELFPAY ==
[2021-08-29] VITALS (16 sets, daily range): BP systolic 103–122; BP diastolic 65–88; PULSE 56–128; RESP 17–32; TEMP 36.6–37.1; O2SAT 93–100; BMI 23.0
--- NOTE | ~2021-08-29 | XR_ITS ---
EXAMINATION: XR CHEST CLINICAL INFORMATION: Short of breath COMPARISON: 09/24/2020 TECHNIQUE: Frontal view of the chest was obtained. FINDINGS: Hyperexpanded lungs. Cardiac leads overlie the chest. There is no focal consolidation, edema, or effusion. No pneumothorax. The cardiomediastinal silhouette is within normal limits. No acute osseous abnormality. XR/XR chest 1V IMPRESSION: Hyperexpanded, clear lungs.
--- NOTE | ~2021-08-29 | XR_ITS ---
EXAMINATION: XR CHEST CLINICAL INFORMATION: Shortness of breath and asthma exacerbation COMPARISON: 08/29/2021 TECHNIQUE: Frontal view of the chest was obtained. FINDINGS: Lungs clear. No pneumothorax. Heart and pulmonary vessels are normal. XR/XR chest 1V IMPRESSION: No active disease.
--- NOTE | 2021-08-29 04:23 | ED_ITS ---
HPI - Asthma General Chief Complaint: Asthma Stated Complaint: asthma exacerbation Time Seen by Provider: 08/29/21 04:16 Source: patient and EMS Mode of arrival: EMS Limitations: no limitations History of Present Illness HPI Narrative: Comes to the emergency room complaining of an asthma exacerbation. Patient trie d using his rescue inhaler at home with no relief. When this did not help, patient called EMS. Per EMS, oxygen saturation was 80% on room patient was given 1 DuoNeb, 1 albuterol neb, 125 mg Solu-Medrol. On arrival to the emergency room, patient on a 10 later mask saturating 99%. Patient states that he feels much better, no chest pain, no shortness of breath, speaking full sentences. Related Data Home Medications Medication Instructions Recorded Confirmed beclomethasone dipropionate 80 1 inh INHALATION DAILY 09/24/20 09/24/20 mcg/actuation HFA breath activated aerosol (Qvar RediHaler) Previous Rx's Medication Instructions Recorded nebulizers #1 ea 11/26/20 prednisone 10 mg tablet 10 mg PO DAILY #28 tab 04/01/21 apixaban 5 mg tablet (Eliquis) 5 mg PO BID #120 tab 05/23/21 montelukast 10 mg tablet 10 mg PO DAILY #30 tab 05/29/21 omeprazole 20 mg capsule,delayed 20 mg PO DAILY@0630 90 Days #90 cap 06/20/21 release buspirone 15 mg tablet 15 mg PO BID 30 Days #60 tab 06/26/21 albuterol sulfate 90 mcg/actuation 2 puff INHALATION Q4H PRN 30 Days 07/04/21 aerosol inhaler #8.5 g albuterol sulfate 0.63 mg/3 mL 0.63 mg (3 mL) INHALATION Q4H PRN 08/11/21 solution for nebulization 30 Days #90 ml Allergies Allergy/AdvReac Type Severity Reaction Status Date / Time walnut Allergy Unknown SWELLING Verified 08/09/20 13:10 buprenorphine [From Suboxone] Allergy swelling Verified 08/09/20 13:10 in his hands and rash naloxone [From Suboxone] Allergy swelling Verified 08/09/20 13:10 in his hands and rash NSAIDS/ASA Allergy Unknown unknown Uncoded 08/09/20 12:15 walnuts Allergy Unknown anaphylaxis Uncoded 08/09/20 12:15 Review of Systems Review of Systems: Constitutional : No Weight loss, No Fever, No Chills, No Night Sweats, No Fatigue, No Malaise ENT/Mouth : No Hearing loss, No Ear Pain, No Nasal Congestion, No Sinus Pain, No Hoarseness, No sore throat, No Rhinorrhea, No Swallowing Difficulty Eyes: No Eye Pain, No Swelling, No Redness, No Foreign Body, No Discharge, No Vision Changes Cardiovascular : No Chest Pain, No SOB, No Dyspnea on Exertion, No Orthopnea, No Edema, No Palpitations Respiratory : No Cough, No Sputum, complaining of wheezing, dyspnea Gastrointestinal : No Nausea, No Vomiting, No Diarrhea, No Constipation, No abdominal Pain, No Hematochezia, No Melena Genitourinary : no irregular bleeding, No Dysuria, No Urinary Frequency, No Hematuria, No Urinary Incontinence, No Urgency, No Flank Pain, No Urinary Flow Changes, No Hesitancy Musculoskeletal : No joint pain, No Myalgias, No Joint Swelling Skin : No Skin Lesions, No rash Neuro : No Weakness, No Numbness, No Paresthesias, No Loss of Consciousness, No Dizziness, No Headache Psych : No Anxiety/Panic, No Depression, No SI/HI/AH/VH, No Social Issues, Heme/Lymph: No Bruising, No Bleeding,No Lymphadenopathy Endocrine : No Polyuria, No Polydipsia, No Temperature Intolerance [facility] Past Medical History Medical History Asthma Chronic lung disease Left against medical advice Lung problems from crack cocaine Opiate abuse, episodic Pulmonary emboli Family History Family History Other Family history non-contributory Social History Social History Household Members: Significant Other Housing: House Do you presently have visiting nurse or other home services: No Alcohol intake: never Patient Tobacco Use Status: Current everyday Tobacco user Tobacco use type: Cigarette Smoked in Last 30 Days: Yes Use of substances other than those prescribed or required for medical reasons: No Advance Directives: No service: No Current occupational status: unemployed Physical Exam Vital Signs: Vital Signs: Last Vital Signs Temp 98 F 08/29/21 04:22 Pulse 101 H 08/29/21 04:22 Resp 20 08/29/21 04:22 BP 122/80 08/29/21 04:22 Pulse Ox 98 08/29/21 05:20 Oxygen Flow Rate 10 08/29/21 04:02 BMI result Body Mass Index 23.0 Const: Other: Appearance: Alert. Oriented X3. No acute distress. Eyes: Pupils equal, round and reactive to light. ENT: Pharynx normal. Neck: Normal inspection. Neck supple. No lymph nodes noted. No crepitus CVS: Normal heart rate and rhythm. Pulses normal. Normal S1 and S2 Respiratory: No respiratory distress. Patient currently getting a breathing treatment, saturating 100%, speaking in full sentences, bilateral wheezing, moderate air movement. Abdomen: Soft and nontender. No rigidity. No distention. Skin: Skin warm and dry. Normal skin color. Normal skin turgor. Extremities: No lower extremity edema. No Lacerations. No Rash Neuro: Oriented X 3. No motor deficit. No sensory deficit. Moving all extremities. No slurred speech. CN 2 through 12 grossly intact Psych: calm, cooperative, normal affect Course Course Course Narrative: Patient currently receiving a 3rd nebulization treatment. Overall patient feeling much better. Labs and imaging pending. Chest x-ray unremarkable. Patient was saturating 94% room air. When we walked the patient, patient failed the ambulation trial, oxygen dropped to 84% The patient was returned to the room, placed on 10 L for recovery, patient is getting another nebulization treatment as he started wheezing again. I discussed the patient Dr. Dobbins, patient being admitted [facility] - Asthma Lab Data Result diagrams: 08/29/21 04:37 08/29/21 04:37 Labs: Lab Results 08/29/21 08/29/21 08/29/21 Range/Units 04:37 04:37 04:37 WBC 7.6 (4.8-10.8) X10*3/uL RBC 4.16 L (4.60-5.80) X10*6/uL Hgb 13.1 L (14.0-18.0) g/dl Hct 39.8 L (42.0-52.0) % MCV 95.7 (80.0-98.0) fL MCH 31.5 (27.0-33.0) pg MCHC 32.9 (31.0-36.0) g/dl RDW 12.3 (11.0-16.0) % Plt Count 205 (160-400) X10*3/uL MPV 9.5 (9.4-12.4) fL Immature Gran % (Auto) 0.3 (0.0-0.4) % Neut % (Auto) 52.8 (45-73) % Lymph % (Auto) 30.3 (20-40) % [place] % (Auto) 6.0 (2-11) % Eos % (Auto) 9.9 H (0-4) % Baso % (Auto) 0.7 (0-2) % Lymph # (Auto) 2.3 (1.2-4.9) X10*3/uL [place] # (Auto) 0.5 (0.1-1.2) X10*3/uL Eos # (Auto) 0.8 H (0.0-0.4) X10*3/uL Baso # (Auto) 0.1 (0.0-0.2) X10*3/uL Abs Immat Gran (auto) 0.02 (0.00-0.03) X10*3/uL Absolute Neuts (auto) 4.0 (2.0-8.3) x10*3/uL Absolute Nucleated RBC 0.000 (0.0-0.012) X10*3/uL Nucleated RBC % (auto) 0.0 (0.0-0.2) /100WBC Sodium 140 (135-145) mmol/L Potassium 3.9 (3.3-5.1) mmol/L Chloride 103 (96-108) mmol/L Carbon Dioxide 27 (22-29) mmol/L Anion Gap 14 (12-20) BUN 18 H (9-16) mg/dL Creatinine 1.40 (0.5-1.4) mg/dL Estim Creat Clear Calc 71.2 Estimated GFR 55 Random Glucose 103 (60-115) mg/dL Calcium 9.0 (8.4-10.2) mg/dL COVID-19 (ELI) Negative (Negative) COVID-19 Clin Com See Note Influenza Type A (RYAN) (Negative) Influenza Type B (RYAN) (Negative) Influenza A & B Note 08/29/21 Range/Units 04:37 WBC (4.8-10.8) X10*3/uL RBC (4.60-5.80) X10*6/uL Hgb (14.0-18.0) g/dl Hct (42.0-52.0) % MCV (80.0-98.0) fL MCH (27.0-33.0) pg MCHC (31.0-36.0) g/dl RDW (11.0-16.0) % Plt Count (160-400) X10*3/uL MPV (9.4-12.4) fL Immature Gran % (Auto) (0.0-0.4) % Neut % (Auto) (45-73) % Lymph % (Auto) (20-40) % [place] % (Auto) (2-11) % Eos % (Auto) (0-4) % Baso % (Auto) (0-2) % Lymph # (Auto) (1.2-4.9) X10*3/uL [place] # (Auto) (0.1-1.2) X10*3/uL Eos # (Auto) (0.0-0.4) X10*3/uL Baso # (Auto) (0.0-0.2) X10*3/uL Abs Immat Gran (auto) (0.00-0.03) X10*3/uL Absolute Neuts (auto) (2.0-8.3) x10*3/uL Absolute Nucleated RBC (0.0-0.012) X10*3/uL Nucleated RBC % (auto) (0.0-0.2) /100WBC Sodium (135-145) mmol/L Potassium (3.3-5.1) mmol/L Chloride (96-108) mmol/L Carbon Dioxide (22-29) mmol/L Anion Gap (12-20) BUN (9-16) mg/dL Creatinine (0.5-1.4) mg/dL Estim Creat Clear Calc Estimated GFR Random Glucose (60-115) mg/dL Calcium (8.4-10.2) mg/dL COVID-19 (ELI) (Negative) COVID-19 Clin Com Influenza Type A (RYAN) Negative (Negative) Influenza Type B (RYAN) Negative (Negative) Influenza A & B Note See Note Imaging Data Chest x-ray: Radiologist's impression: FINDINGS: Hyperexpanded lungs. Cardiac leads overlie the chest. There is no focal consolidation, edema, or effusion. No pneumothorax. The cardiomediastinal silhouette is within normal limits. No acute osseous abnormality. XR/XR chest 1V IMPRESSION: Hyperexpanded, clear lungs. Discharge Plan Discharge Clinical Impression: Asthma exacerbation Patient Disposition: Admitted As Inpatient Prescriptions: No Action (DME) nebulizers Misc See Rx Instructions .Route Qty: 1 0RF Rx Instructions: Use every 4 hours as needed for SOB, wheezing Eliquis 5 mg tablet 5 mg PO BID Qty: 120 0RF montelukast 10 mg tablet 10 mg PO DAILY Qty: 30 4RF omeprazole 20 mg capsule,delayed release(DR/EC) 20 mg PO DAILY@0630 90 Days Qty: 90 0RF buspirone 15 mg tablet 15 mg PO BID 30 Days Qty: 60 3RF albuterol sulfate 90 mcg/actuation HFA aerosol inhaler 2 puff inhalation Q4H PRN (Reason: bronchospasm) 30 Days Qty: 8.5 2RF albuterol sulfate 0.63 mg/3 mL solution for nebulization 0.63 mg inhalation Q4H PRN (Reason: bronchospasm) 30 Days Qty: 90 0RF Qvar RediHaler 80 mcg/actuation Hfa Aerosol Breath Activated 1 inh INHALATION DAILY 0RF prednisone 10 mg tablet 10 mg PO DAILY Qty: 28 0RF Rx Instructions: 6 pills by mouth day 1, 6 pills by mouth day 2, 5 pills by mouth day 3, 4 pills by mouth day 4, 3 pills by mouth day 5, 2 pills by mouth day 6, 1 pill by mouth day 7 and 1 pill by mouth day 8.
[2021-08-29] MEDS: Magnesium Sulfate/H2O 2 GM/50 ML PIGGYBACK IV (04:25)
[2021-08-29 04:45] LABS: MANUAL DIFF FLAG NO
[2021-08-29 04:46] LABS: Basophils Absolute Auto 0.1 X10*3/uL (0.0-0.2); Basophils Percent Auto 0.7 % (0-2); Eosinophils Absolute Auto 0.8 X10*3/uL (0.0-0.4); Eosinophils Percent Auto 9.9 % (0-4); Hematocrit 39.8 % (42.0-52.0); Hemoglobin 13.1 g/dl (14.0-18.0); Imm Gran Abs Auto 0.02 X10*3/uL (0.00-0.03); Imm Gran Pct Auto 0.3 % (0.0-0.4); Lymphocytes Absolute Auto 2.3 X10*3/uL (1.2-4.9); Lymphocytes Percent Auto 30.3 % (20-40); Mean Corpuscular HGB Conc 32.9 g/dl (31.0-36.0); Mean Corpuscular Hemoglobin 31.5 pg (27.0-33.0); Mean Corpuscular Volume 95.7 fL (80.0-98.0); Mean Platelet Volume 9.5 fL (9.4-12.4); Monocytes Absolute Auto 0.5 X10*3/uL (0.1-1.2); Neutrophils Percent Auto 52.8 % (45-73); Platelet Count 205 X10*3/uL (160-400); Red Blood Count 4.16 X10*6/uL (4.60-5.80); Red Cell Distribution Width 12.3 % (11.0-16.0); White Blood Count 7.6 X10*3/uL (4.8-10.8)
[2021-08-29 05:01] LABS: COVID-19 Test Negative (Negative); IDNOW Serial# 16C4AD1C; Influenza A Negative (Negative); Influenza B2 Negative (Negative)
[2021-08-29 05:04] LABS: Anion Gap 14 (12-20); Blood Urea Nitrogen 18 mg/dL (9-16); Carbon Dioxide 27 mmol/L (22-29); Chloride 103 mmol/L (96-108); Creatinine Clr Calc Pharmacy 71.2; Estimated Glomerular Filt Rate 55; Glucose Random 103 mg/dL (60-115); Potassium 3.9 mmol/L (3.3-5.1); Sodium 140 mmol/L (135-145)
--- NOTE | 2021-08-29 05:36 | PM.IMHP ---
History of Present Illness Date of Service: 08/29/21 Chief Complaint: Shortness of breath 46-year-old male with a past medical history of asthma, anxiety, depression, polysubstance abuse, history of pulmonary embolism on Eliquis; presented to the hospital today with a chief complaint of shortness of breath. Patient reports that over the past 1 day he has been having shortness of breath associated dry cough; denies any fevers and chills. Tried his home rescue inhalers with no significant improvement; after he woke up around 02:00 he could not breathe, subsequently called EMS and presented to the ER for further evaluation. denies any chest pain or palpitations Denies any nausea vomiting or diarrhea. Denies any urinary symptoms. Review of all other systems is negative except mentioned above ER course: Per ER team patient on EMS arrival noted to be saturating 80%; given nebulizations and steroids. Placed on supplemental oxygen; on arrival to the ER patient was saturating 99% on 10 L of supplemental oxygen; patient was given nebulizations; oxygenation improved. Patient was saturating well on room air. When tried to discharge the patient on ambulation patient desaturated to 80; placed back on supplemental oxygen and started to wheeze again. Decided to admit to the hospital for further management. Patient also received magnesium. [facility] Medical History Asthma Chronic lung disease Left against medical advice Lung problems from crack cocaine Opiate abuse, episodic Pulmonary emboli Family History Other Family history non-contributory Social History Household Members: Significant Other Housing: House Do you presently have visiting nurse or other home services: No Alcohol intake: never Patient Tobacco Use Status: Current everyday Tobacco user Tobacco use type: Cigarette Smoked in Last 30 Days: Yes Use of substances other than those prescribed or required for medical reasons: No Advance Directives: No service: No Current occupational status: unemployed Meds Allergies Allergy/AdvReac Type Severity Reaction Status Date / Time walnut Allergy Unknown SWELLING Verified 08/09/20 13:10 buprenorphine [From Suboxone] Allergy swelling Verified 08/09/20 13:10 in his hands and rash naloxone [From Suboxone] Allergy swelling Verified 08/09/20 13:10 in his hands and rash NSAIDS/ASA Allergy Unknown unknown Uncoded 08/09/20 12:15 walnuts Allergy Unknown anaphylaxis Uncoded 08/09/20 12:15 Active Medications: Current Medications Acetaminophen (Acetaminophen 325 Mg Tablet) 650 mg PO Q6H PRN PRN Reason: Pain, Mild (Pain Scale 1-3) Albuterol/Ipratropium (Albuterol/Iprat 2.5/0.5mg 3 Ml Ampul.Neb) 3 ml INHALE RQ4H WHILE AWAKE EMMA Enoxaparin Sodium (Enoxaparin Sodium 40 Mg/0.4 Ml Syringe) 40 mg SUBCUT Q24H EMMA Famotidine (Famotidine 20 Mg Tablet) 20 mg PO BID EMMA Magnesium Sulfate (Magnesium Sulfate/H2o) 2 gm in 50 mls @ 25 mls/hr IV ONCE ONE Stop: 08/29/21 06:20 Last Infusion: 08/29/21 04:59 Dose: Infused Documented by: Melatonin (Melatonin 3 Mg Tablet) 6 mg PO BEDTIME PRN PRN Reason: Insomnia Methylprednisolone Sodium Succinate (Methylprednisolone Sod Succ 40 Mg/Ml Vial) 40 mg IVPUSH Q6H EMMA Senna (Sennosides 8.6 Mg Tablet) 17.2 mg PO BEDTIME PRN PRN Reason: Constipation Sodium Chloride (0.9 % Sodium Chloride Flush 3 Ml Syringe) 3 ml IVFLUSH QSHIFT [facility] Home Medications Medication Instructions Recorded Confirmed Last Taken Type beclomethasone dipropionate 80 1 inh INHALATION DAILY 09/24/20 09/24/20 Unknown History mcg/actuation HFA breath activated aerosol (Qvar RediHaler) Physical Exam Vital Signs and Narrative: Vital Signs: Last Vital Signs Temp 98 F 08/29/21 04:22 Pulse 101 H 08/29/21 04:22 Resp 20 08/29/21 04:22 BP 122/80 08/29/21 04:22 Pulse Ox 98 08/29/21 05:20 Oxygen Flow Rate 10 08/29/21 04:02 BMI result Body Mass Index 23.0 Gen: Appears be in no acute distress; on supplemental oxygen. Speaks in full sentences. HEENT: NCAT, Moist mucosa. Pulmonary: bilateral wheezing present CVS: Normal S1-S2 Abdomen: BS+, Soft, Nontender Extremities: Warm well perfused Neuro: Alert and awake. Results Labs CBC and Chem 7: 08/29/21 04:37 08/29/21 04:37 Labs: Laboratory Results - last 24 hr 08/29/21 08/29/21 08/29/21 04:37 04:37 04:37 MCV 95.7 MCH 31.5 MCHC 32.9 RDW 12.3 Plt Count 205 MPV 9.5 Immature Gran % (Auto) 0.3 Neut % (Auto) 52.8 Lymph % (Auto) 30.3 [place] % (Auto) 6.0 Eos % (Auto) 9.9 H Baso % (Auto) 0.7 Lymph # (Auto) 2.3 [place] # (Auto) 0.5 Eos # (Auto) 0.8 H Baso # (Auto) 0.1 Abs Immat Gran (auto) 0.02 Absolute Neuts (auto) 4.0 Absolute Nucleated RBC 0.000 Nucleated RBC % (auto) 0.0 Anion Gap 14 Estim Creat Clear Calc 71.2 Estimated GFR 55 Random Glucose 103 Calcium 9.0 COVID-19 (ELI) Negative COVID-19 Clin Com See Note Influenza Type A (RYAN) Influenza Type B (RYAN) Influenza A & B Note 08/29/21 04:37 MCV MCH MCHC RDW Plt Count MPV Immature Gran % (Auto) Neut % (Auto) Lymph % (Auto) [place] % (Auto) Eos % (Auto) Baso % (Auto) Lymph # (Auto) [place] # (Auto) Eos # (Auto) Baso # (Auto) Abs Immat Gran (auto) Absolute Neuts (auto) Absolute Nucleated RBC Nucleated RBC % (auto) Anion Gap Estim Creat Clear Calc Estimated GFR Random Glucose Calcium COVID-19 (ELI) COVID-19 Clin Com Influenza Type A (RYAN) Negative Influenza Type B (RYAN) Negative Influenza A & B Note See Note Imaging Radiologist's Impressions: Impressions Chest X-Ray 08/29/21 05:00 IMPRESSION: Hyperexpanded, clear lungs. Assessment and Plan (1) Asthma exacerbation: Status: Acute (2) Hypoxia: Status: Acute Plan 46-year-old male with a past medical history of asthma, anxiety, depression, polysubstance abuse, history of pulmonary embolism on Eliquis; presented to the hospital today with a chief complaint of shortness of breath. Noted to be in acute asthma exacerbation/ hypoxia. Admitted for further management. Acute hypoxic respiratory failure: In the setting of acute asthma. Patient on supplemental oxygen. Acute asthma exacerbation: Will give the patient on DuoNeb standing and p.r.n. Solu-Medrol IV q.i.d. Pulmonology consult history of opiate dependence: Patient reports he is on 90 mg of methadone. Addiction Medicine consult. History of pulmonary embolism: Continue home Eliquis History of anxiety: patient reports that he is not taking buspirone anymore GI prophylaxis: Pepcid and DVT prophylaxis: Patient on Eliquis Code status: Full code Quality Stroke Does the patient have a stroke diagnosis?: No VTE Prior VTE?: No VTE Risk Level:: Medical - moderate - high VTE Device Contraindication: Treatment Not Indicated VTE Drug Contraindication: N/A - Med Ordered
[2021-08-29] MEDS: Albuterol Sulfate (0.083%) 2.5 MG/3 ML VIAL.NEB 10 MG INHALE ×2 (05:56→08:17)
[2021-08-29] MEDS: Albuterol/Iprat 2.5/0.5MG 3 ML AMPUL.NEB INHALE ×4 (07:41→20:07)
--- NOTE | 2021-08-29 08:30 | PM.EVENT ---
Event Note Date of Service: 08/29/21 Event Note: Pt seen and examined. Here with exacerbation of asthma. Still very tight with rhonchil, wheezing and and requiring high flow now. Given an additional continuous neb. Pulmonoary consultation.
--- NOTE | 2021-08-29 08:35 | PHA.MEDREC ---
Pharmacy Consult ? Medication Reconciliation Pharmacy has completed the medication reconciliation. Pt states that he really only takes his eliquis and albuterol inhaler, tries to take a multivitamin daily. I asked about his claim history because it showed that he only last filled his Eliquis in March 2021, but he stated he just got 3 bottles from [facility] on [facility].
--- NOTE | 2021-08-29 09:07 | MHC.RECOVRN ---
Spoke with nursing at [facility], pt is currently on 90 mg methadone. Last dosed at [facility] on 08/26, received take home bottles for 08/27 and 08/28. Discussed with Leona Sheikh APRN.
[2021-08-29 09:23] LABS: Magnesium 2.5 mg/dL (1.6-2.6)
--- NOTE | 2021-08-29 09:50 | MHC.CM.PN ---
PT REPORTS HE LIVES WITH HIS GIRLFRIEND AND IS INDEPENDENT WITH CARE PT REPORTS HE HAS NO HOME SERVICES AND HAS HOME OXYGEN HE USES PRN. PT REPORTS HE DID RECEIVE THE COVID VACCINES BUT IS NOT YET ELIGIBLE FOR THE BOOSTER PCP: MEY WILSON PT DOES NOT HAVE A HCP AND DECLINES TO COMPLETE ONE TODAY CURRENT DC PLAN IS HOME WITH NO SERVICES S/O TO TRANSPORT
[2021-08-29] MEDS: methADONE HCl 20 MG/2 ML ORAL.CONC 90 MG PO (10:26)
[2021-08-29] MEDS: Famotidine 20 MG TABLET PO ×2 (10:27→19:50)
[2021-08-29 10:48] LABS: Amphetamine Screen Urine Not Detected (Not Detect); Barbiturates, Urine Not Detected (Not Detect); Benzodiazepines Screen Urine Not Detected (Not Detect); Cannabinoid Screen Urine Not Detected (Not Detect); Cocaine Screen Urine POSITIVE (Not Detect); Fentanyl, urine POSITIVE (Not Detect); Opiate Screen Urine POSITIVE (Not Detect); Phencyclidine Screen Urine Not Detected (Not Detect)
[2021-08-29] MEDS: methylPREDNISolone Sod Succ 40 MG/ML VIAL IVPUSH ×3 (12:48→23:34)
--- NOTE | 2021-08-29 13:48 | PM.CNPUL ---
History of Present Illness History of Present Illness Consult date: 08/29/21 Requesting physician: Mando Dobbins Chief complaint: acute asthma exacerbation Narrative: 46-year-old gentleman with underlying history of asthma, PE now on Eliquis, cocaine lung, anxiety, polysubstance abuse admitted on 08/29/2021 with dyspnea over several days now requiring high-flow oxygen. Patient denies current drug abuse, though drug screen is positive for cocaine and opiates. His oxygenation is improved, however he still requires high-flow to maintain normal oximetry. Review of Systems Constitutional: Constitutional: Denies daytime sleepiness, Denies excessive sweating, Denies fatigue, Denies fever(s), Denies lethargy, Denies malaise, Denies night sweats, Denies snoring and Denies weight loss Eyes: Eyes: Denies blurry vision and Denies itchy eyes ENT: Denies nasal congestion, Denies post nasal drip, Denies sinus pain, Denies sinus pressure and Denies other ( Thrush) Cardiovascular: Cardiovascular: Denies chest pain, Denies pedal edema, Reports dyspnea, Denies orthopnea and Denies paroxysmal nocturnal dyspnea Respiratory: Respiratory: Denies cough, Denies hemoptysis, Denies excessive phlegm production, Reports dyspnea, Denies snoring and Denies wheezing Gastrointestinal: Gastrointestinal: Denies abdominal pain and Denies heartburn Musculoskeletal: Musculoskeletal: Denies myalgias, Denies arthralgias and Denies joint swelling Integumentary/Breasts: Skin/Breast: Denies rash Neurologic: Denies memory loss and Denies seizure-like activity Psychiatric: Psychiatric: Denies abnormal sleep pattern, Denies anxiety and Denies memory loss Endocrine: Endocrine: Denies excessive sweating, Denies fatigue and Denies heat intolerance Hematologic/Lymphatic: Hematologic/Lymphatic: Denies easy bruising Allergic/Immunologic: Allergic/Immunologic: Denies itchy eyes, Denies seasonal rhinorrhea and Denies wheezing PMFSH Past Medical History Medical History Asthma Chronic lung disease Left against medical advice Lung problems from crack cocaine Opiate abuse, episodic Pulmonary emboli Family History Family History Other Family history non-contributory Social History Social History Household Members: Significant Other Housing: House Do you presently have visiting nurse or other home services: No Alcohol intake: never Patient Tobacco Use Status: Current everyday Tobacco user Tobacco use type: Cigarette Smoked in Last 30 Days: Yes Use of substances other than those prescribed or required for medical reasons: No Advance Directives: No service: No Current occupational status: unemployed Meds Allergies Allergy/AdvReac Type Severity Reaction Status Date / Time walnut Allergy Unknown SWELLING Verified 08/09/20 13:10 buprenorphine [From Suboxone] Allergy swelling Verified 08/09/20 13:10 in his hands and rash naloxone [From Suboxone] Allergy swelling Verified 08/09/20 13:10 in his hands and rash NSAIDS/ASA Allergy Unknown unknown Uncoded 08/09/20 12:15 walnuts Allergy Unknown anaphylaxis Uncoded 08/09/20 12:15 Active Medications: Current Medications Acetaminophen (Acetaminophen 325 Mg Tablet) 650 mg PO Q6H PRN PRN Reason: Pain, Mild (Pain Scale 1-3) Albuterol/Ipratropium (Albuterol/Iprat 2.5/0.5mg 3 Ml Ampul.Neb) 3 ml INHALE RQ4H WHILE AWAKE [facility] Last Admin: 08/29/21 11:17 Dose: 3 ml Documented by: Albuterol/Ipratropium (Albuterol/Iprat 2.5/0.5mg 3 Ml Ampul.Neb) 3 ml INHALE RQ4H PRN PRN Reason: Shortness of Breath/Wheezing Apixaban (Apixaban 5 Mg Tablet) 5 mg PO BID [facility] Famotidine (Famotidine 20 Mg Tablet) 20 mg PO BID [facility] Last Admin: 08/29/21 10:27 Dose: 20 mg Documented by: Melatonin (Melatonin 3 Mg Tablet) 6 mg PO BEDTIME PRN PRN Reason: Insomnia Methadone HCl (Methadone Hcl 20 Mg/2 Ml Oral.Conc) 90 mg PO DAILY [facility] Last Admin: 08/29/21 10:26 Dose: 90 mg Documented by: Methylprednisolone Sodium Succinate (Methylprednisolone Sod Succ 40 Mg/Ml Vial) 40 mg IVPUSH Q6H [facility] Last Admin: 08/29/21 12:48 Dose: 40 mg Documented by: Senna (Sennosides 8.6 Mg Tablet) 17.2 mg PO BEDTIME PRN PRN Reason: Constipation Sodium Chloride (0.9 % Sodium Chloride Flush 3 Ml Syringe) 3 ml IVFLUSH QSHIFT [facility] Last Admin: 08/29/21 10:54 Dose: Not Given Documented by: Home Medications Medication Instructions Recorded Confirmed Last Taken Type multivitamin 1 tab PO DAILY 08/29/21 08/29/21 08/28/21 History Physical Exam Vital Signs: Vital Signs: Last Vital Signs Temp 98.7 F 08/29/21 06:29 Pulse 107 H 08/29/21 11:19 Resp 22 H 08/29/21 11:19 BP 114/69 08/29/21 06:29 Pulse Ox 96 08/29/21 06:29 Oxygen Flow Rate 10 08/29/21 04:02 BMI result Body Mass Index 23.0 Const: General: no acute distress and alert Nutritional Appearance: not obese Orientation/consciousness: Other orientation findings ( oriented) HEENT: Head: Yes atraumatic Mouth: no other ( thrush) Throat: No postnasal drainage Eyes: General: appearance normal, both eyes and all related structures Sclerae: sclerae normal EOM: EOMs intact bilaterally Neck: Neck: Yes supple Lymphatic: no lymphadenopathy noted Resp: Effort & Inspection: normal respiratory effort and no use of accessory muscles Auscultation: wheezes ( Expiratory, bilateral) Cardio: Rate: tachycardic Rhythm: regular rhythm Heart sounds: no gallops, no murmurs and no rubs GI: Palpation (GI): Soft to palpation and Other GI palpation findings present ( nontender) Skin: General skin exam: other ( warm) Rashes: no rashes Extrem: General: No clubbing, No cyanosis and No edema Results Laboratory Findings CBC and BMP: 08/29/21 04:37 08/29/21 04:37 Abnormal lab findings: Abnormal Labs 08/29/21 08/29/21 08/29/21 04:37 04:37 10:27 RBC 4.16 L Hgb 13.1 L Hct 39.8 L Eos % (Auto) 9.9 H Eos # (Auto) 0.8 H BUN 18 H Urine Opiates Screen POSITIVE H Urine Fentanyl Screen POSITIVE H Urine Cocaine Screen POSITIVE H Assessment and Plan (1) Hypoxia: Status: Acute (2) Lung problems from crack cocaine: Status: Acute (3) Asthma exacerbation: Status: Acute Plan Impression: 46-year-old gentleman with underlying history of asthma, cocaine induced lung disease, and PE on anticoagulation admitted with hypoxia, positive for cocaine now requiring high-flow supplemental oxygen to maintain normal oximetry. Improving on nebulized bronchodilators and systemic glucocorticoids. Likely etiology is exacerbation of underlying asthma/ cocaine lung disease from continued cocaine use. Recommendations: Agree with Solu-Medrol on, consider decreasing to an equivalent of 60 mg a day. Agree with nebulized bronchodilators. Continue to titrate down supplemental oxygen as needed. Will continue to follow. Procedures Date of Service Date of Service: 08/29/21
[2021-08-29 14:12] LABS: ABG Base Excess -4.2 mmol/L; ABG HCO3 20 mmol/L (22-26); ABG pCO2 36 mmHg (32-45); ABG pH 7.35 (7.35-7.45); ABG pO2 79 mmHg (83-108)
[2021-08-29 14:14] LABS: ABG Refer to POC result
--- NOTE | 2021-08-29 16:55 | PM.EVENT ---
Event Note Date of Service: 08/29/21 Event Note: Addiction conult Please see Recovery Support Note dated 08/29
[2021-08-29] MEDS: 0.9 % Sodium Chloride Flush 3 ML SYRINGE IVFLUSH ×2 (18:20→23:34)
[2021-08-29] MEDS: Apixaban 5 MG TABLET PO (19:50)
[2021-08-29] MEDS: LORazepam 0.5 MG TABLET PO (19:50)
[2021-08-30] VITALS (11 sets, daily range): BP systolic 99–151; BP diastolic 43–74; PULSE 59–101; RESP 16–25; TEMP 36.6–37.1; O2SAT 91–99; BMI 23.0
[2021-08-30 05:06] LABS: Basophils Percent Auto 0.1 % (0-2); Hematocrit 39.5 % (42.0-52.0); Hemoglobin 13.2 g/dl (14.0-18.0); Imm Gran Abs Auto 0.44 X10*3/uL (0.00-0.03); Imm Gran Pct Auto 1.9 % (0.0-0.4); Lymphocytes Absolute Auto 0.6 X10*3/uL (1.2-4.9); Lymphocytes Percent Auto 2.6 % (20-40); Mean Corpuscular HGB Conc 33.4 g/dl (31.0-36.0); Mean Corpuscular Hemoglobin 32.1 pg (27.0-33.0); Mean Corpuscular Volume 96.1 fL (80.0-98.0); Mean Platelet Volume 10.1 fL (9.4-12.4); Monocytes Absolute Auto 0.6 X10*3/uL (0.1-1.2); Monocytes Percent Auto 2.6 % (2-11); Neutrophils Absolute Auto 21.8 x10*3/uL (2.0-8.3); Neutrophils Percent Auto 92.8 % (45-73); Platelet Count 227 X10*3/uL (160-400); Red Blood Count 4.11 X10*6/uL (4.60-5.80); Red Cell Distribution Width 12.6 % (11.0-16.0); SCAN SMEAR FLAG 1; White Blood Count 23.5 X10*3/uL (4.8-10.8)
[2021-08-30 05:18] LABS: MANUAL DIFF FLAG SCAN
[2021-08-30 05:21] LABS: SLIDE REVIEW VERIFIED
[2021-08-30 05:39] LABS: Anion Gap 13 (12-20); Blood Urea Nitrogen 18 mg/dL (9-16); Calcium 9.6 mg/dL (8.4-10.2); Carbon Dioxide 28 mmol/L (22-29); Chloride 103 mmol/L (96-108); Creatinine Clr Calc Pharmacy 107.3; Estimated Glomerular Filt Rate > 60; Glucose Random 144 mg/dL (60-115); Potassium 4.8 mmol/L (3.3-5.1); Sodium 139 mmol/L (135-145)
[2021-08-30] MEDS: methylPREDNISolone Sod Succ 40 MG/ML VIAL IVPUSH ×4 (06:03→23:44)
--- NOTE | 2021-08-30 08:48 | P.CDIC_ITS ---
CDI Concurrent Query Documentation Clarification: PHYSICIAN'S DOCUMENTATION REQUEST Date of Query: 08/30/21 0849 Patient Name: Shiraz Cruz Admit Date: 08/29/21 Dear Doctor, Please review the following and provide your response in the progress notes. Clinical Indicators: The diagnosis of asthma was documented in the record on [enter date]. Additional clinical indicators from the record include: Risk Factors/Clinical Indicators/Treatments PN: 08/27 - Asthma exacerbation Duonebs, Solumedrol, supplemental oxygen. cocaine abuse. Based on the above, please clarify in the Progress Notes further specificity regarding the type and acuity of the asthma: Type: * Mild intermittent - less than 2x/week * Mild persistent - more than 2x/week but not daily * Moderate persistent - daily and may restrict physical activity * Severe persistent - throughout the day with frequent attacks, limiting activities * Other ? please specify * Unable to determine Acuity: * With acute exacerbation * With status asthmaticus * Uncomplicated * Unable to determine Use of terms such as suspected, likely, concern for, or probable (associated with a specific diagnosis that is being evaluated, monitored, or treated as if it exists) are acceptable and can be coded in the inpatient setting, when documented at the time of discharge. Thank you, Zoraida Sunshine [facility], CDIS Extension: [phone] Please use your independent medical judgment in providing your response. THIS QUERY IS PART OF THE PERMANENT MEDICAL RECORD Provider Response: Other Other Diagnosis: 67-year-old female with a past medical history of hypertension, hyperlipidemia, CAD, CHF, CKD/ ESRD on hemodialysis, asthma, anemia, history of anasarca, ascites; presented to the hospital today with a chief complaint of shortness of breath.? ?noted to have following: Mild acute asthma exacerbation: Will give the patient Solu-Medrol IV q.i.d. Nebulizations standing and p.r.n. Supplemental oxygen p.r.n. Mild hypoxia:? Improved after nebulization treatments.? Patient's chest x-ray also showed mild congestion.? Patient due for hemodialysis.? diastolic CHF:? Patient chest x-ray showed mild congestion.? Patient due for hemodialysis.? will also continue home Bumex. ? will give IV Bumex x1 ?initial troponin 53-repeat troponin pending patient denies any chest pain.? Likely demand. ? EKG nonischemic History of ESRD:? Nephrology consult.? History of opiate dependence: Addiction Medicine consult.? History of hypertension / hyperlipidemia: Continue home medications DVT prophylaxis:? Subcu heparin Code status: Full code
[2021-08-30] MEDS: 0.9 % Sodium Chloride Flush 3 ML SYRINGE IVFLUSH ×3 (09:20→20:39)
[2021-08-30] MEDS: methADONE HCl 20 MG/2 ML ORAL.CONC 90 MG PO (09:20)
[2021-08-30] MEDS: Famotidine 20 MG TABLET PO ×2 (09:20→20:39)
[2021-08-30] MEDS: Apixaban 5 MG TABLET PO ×2 (09:20→20:39)
--- NOTE | 2021-08-30 11:00 | PC.NURSE ---
Pt is A&Ox4, lungs with wheezes throughout. Pt was changed from 7L oxymask to 4L NC as per MD request. Pt offers no complaints of pain, NSR on monitor, abd soft, non tender, +BS. Call flores within reach. Will continue to monitor.
--- NOTE | 2021-08-30 11:02 | P.PNIM_ITS ---
Subjective Subjective Date of Service: 08/30/21 Interval History: Follow-up on acute respiratory failure due to exacerbation of asthma Interval history: Overall better his transition from high-flow to non- rebreather Review of Systems Shortness of breath, cough, Wheezes, no chest pain Physical Exam Vital Signs: Vital Signs: Last Vital Signs Temp 98.4 F 08/30/21 08:37 Pulse 87 08/30/21 08:37 Resp 25 H 08/30/21 08:37 BP 110/57 L 08/30/21 08:37 Pulse Ox 99 08/30/21 08:37 Oxygen Flow Rate 10 08/29/21 04:02 BMI result Body Mass Index 23.0 Const: Other: General: AO X 3, no acute distress Resp: Diffuse rhonchi, expiratory wheezes. CVS: S1,S2,RRR GI: +BS, NT, no distention Skin: No rash Neuro: motor grossly intact Psych: appropriate affect Objective Data Active Medications Acetaminophen (Acetaminophen 325 Mg Tablet) 650 mg PO Q6H PRN PRN Reason: Pain, Mild (Pain Scale 1-3) Albuterol/Ipratropium (Albuterol/Iprat 2.5/0.5mg 3 Ml Ampul.Neb) 3 ml INHALE RQ4H WHILE AWAKE [facility] Last Admin: 08/30/21 07:57 Dose: Not Given Documented by: RAVINDER Non-Admin Reason: Patient Refused Albuterol/Ipratropium (Albuterol/Iprat 2.5/0.5mg 3 Ml Ampul.Neb) 3 ml INHALE RQ4H PRN PRN Reason: Shortness of Breath/Wheezing Apixaban (Apixaban 5 Mg Tablet) 5 mg PO BID [facility] Last Admin: 08/30/21 09:20 Dose: 5 mg Documented by: ISHAAN-KALA Famotidine (Famotidine 20 Mg Tablet) 20 mg PO BID [facility] Last Admin: 08/30/21 09:20 Dose: 20 mg Documented by: ELLY Melatonin (Melatonin 3 Mg Tablet) 6 mg PO BEDTIME PRN PRN Reason: Insomnia Methadone HCl (Methadone Hcl 20 Mg/2 Ml Oral.Conc) 90 mg PO DAILY [facility] Last Admin: 08/30/21 09:20 Dose: 90 mg Documented by: ELLY Methylprednisolone Sodium Succinate (Methylprednisolone Sod Succ 40 Mg/Ml Vial) 40 mg IVPUSH Q6H [facility] Last Admin: 08/30/21 06:03 Dose: 40 mg Documented by: MICHELE Senna (Sennosides 8.6 Mg Tablet) 17.2 mg PO BEDTIME PRN PRN Reason: Constipation Sodium Chloride (0.9 % Sodium Chloride Flush 3 Ml Syringe) 3 ml IVFLUSH QSHIFT [facility] Last Admin: 08/30/21 09:20 Dose: 3 ml Documented by: ELLY Labs CBC & Chem 7: 08/30/21 04:08 08/30/21 04:08 Labs: Laboratory Results - last 24 hr 08/29/21 08/30/21 08/30/21 14:04 04:08 04:08 MCV 96.1 MCH 32.1 MCHC 33.4 RDW 12.6 Plt Count 227 MPV 10.1 Immature Gran % (Auto) 1.9 H Neut % (Auto) 92.8 H Lymph % (Auto) 2.6 L [place] % (Auto) 2.6 Eos % (Auto) 0.0 Baso % (Auto) 0.1 Lymph # (Auto) 0.6 L [place] # (Auto) 0.6 Eos # (Auto) 0.0 Baso # (Auto) 0.0 Abs Immat Gran (auto) 0.44 H Absolute Neuts (auto) 21.8 H Absolute Nucleated RBC 0.000 Nucleated RBC % (auto) 0.0 Smear Tech's Comments VERIFIED O2 Saturation 95.0 ABG pH at Pt Temp 7.35 ABG pCO2 at Pt Temp 36 ABG pO2 at Pt Temp 79 L ABG HCO3 20 L ABG Base Excess (Actual) -4.2 Anion Gap 13 Estim Creat Clear Calc 107.3 Estimated GFR > 60 Random Glucose 144 H D Calcium 9.6 D Assessment and Plan (1) Moderate persistent asthma with exacerbation: Status: Acute Plan 46-year-old male with a past medical history of asthma, anxiety, depression, polysubstance abuse, history of pulmonary embolism on Eliquis; presented to the hospital today with a chief complaint of shortness of breath.? ? Noted to be in acute asthma exacerbation/ hypoxia.? Admitted for further management.? Acute hypoxic respiratory failure d/t moderate persistent asthma with acute exacerbation and exacerbated by cocaine use. -Continue IV solumedrol -Bronchodilators scheduled and PRN -wean down O2 -Pulmonary input noted History of opiate dependence:? Continue methadone History of pulmonary embolism: Continue home Eliquis History of? anxiety:? patient reports that he is not taking buspirone anymore GI prophylaxis: Pepcid and DVT prophylaxis:? Patient on Eliquis Code status: Full code Quality Stroke Does the patient have a stroke diagnosis?: No VTE Prior VTE?: No VTE Risk Level:: Medical - moderate - high VTE Device Contraindication: Treatment Not Indicated VTE Drug Contraindication: N/A - Med Ordered
[2021-08-30] MEDS: Albuterol/Iprat 2.5/0.5MG 3 ML AMPUL.NEB INHALE ×2 (16:07→19:13)
[2021-08-31] VITALS (12 sets, daily range): BP systolic 104–130; BP diastolic 52–76; PULSE 65–102; RESP 14–20; TEMP 36.4–37.4; O2SAT 91–98
[2021-08-31] MEDS: Albuterol/Iprat 2.5/0.5MG 3 ML AMPUL.NEB INHALE ×5 (00:51→20:21)
[2021-08-31] MEDS: methylPREDNISolone Sod Succ 40 MG/ML VIAL IVPUSH ×4 (05:37→23:14)
[2021-08-31] MEDS: 0.9 % Sodium Chloride Flush 3 ML SYRINGE IVFLUSH ×2 (07:53→17:39)
[2021-08-31] MEDS: Famotidine 20 MG TABLET PO ×2 (07:53→20:15)
[2021-08-31] MEDS: Apixaban 5 MG TABLET PO ×2 (07:53→20:15)
[2021-08-31] MEDS: methADONE HCl 20 MG/2 ML ORAL.CONC 90 MG PO (07:54)
--- NOTE | 2021-08-31 08:18 | HO.PM.IMPN ---
Subjective Subjective Date of Service: 08/31/21 Interval History: acute respiratory failure due to exacerbation of asthma Review of Systems Still talks in shortness substances, has aggressive cough, feels short of breath with minimal exertion. Denies any chest pain or abdominal pain or nausea vomiting Physical Exam Vital Signs: Vital Signs: Last Vital Signs Temp 97.6 F 08/31/21 07:16 Pulse 74 08/31/21 07:45 Resp 18 08/31/21 07:45 BP 104/52 L 08/31/21 07:16 Pulse Ox 98 08/31/21 07:16 Oxygen Flow Rate 10 08/29/21 04:02 BMI result Body Mass Index 23.0 General: AO X 3, no acute distress Resp:? Diffuse rhonchi, expiratory wheezes. CVS: S1,S2,RRR GI: +BS, NT, no distention Skin: No rash Neuro:? motor grossly intact Psych: appropriate affect Objective Data Active Medications Acetaminophen (Acetaminophen 325 Mg Tablet) 650 mg PO Q6H PRN PRN Reason: Pain, Mild (Pain Scale 1-3) Albuterol/Ipratropium (Albuterol/Iprat 2.5/0.5mg 3 Ml Ampul.Neb) 3 ml INHALE RQ4H WHILE AWAKE [facility] Last Admin: 08/31/21 07:44 Dose: 3 ml Documented by: RAVINDER Albuterol/Ipratropium (Albuterol/Iprat 2.5/0.5mg 3 Ml Ampul.Neb) 3 ml INHALE RQ4H PRN PRN Reason: Shortness of Breath/Wheezing Last Admin: 08/31/21 00:51 Dose: 3 ml Documented by: JESSICA Apixaban (Apixaban 5 Mg Tablet) 5 mg PO BID [facility] Last Admin: 08/31/21 07:53 Dose: 5 mg Documented by: EMEKA Famotidine (Famotidine 20 Mg Tablet) 20 mg PO BID [facility] Last Admin: 08/31/21 07:53 Dose: 20 mg Documented by: EMEKA Melatonin (Melatonin 3 Mg Tablet) 6 mg PO BEDTIME PRN PRN Reason: Insomnia Methadone HCl (Methadone Hcl 20 Mg/2 Ml Oral.Conc) 90 mg PO DAILY [facility] Last Admin: 08/31/21 07:54 Dose: 90 mg Documented by: EMEKA Methylprednisolone Sodium Succinate (Methylprednisolone Sod Succ 40 Mg/Ml Vial) 40 mg IVPUSH Q6H [facility] Last Admin: 08/31/21 05:37 Dose: 40 mg Documented by: CHARLIE Senna (Sennosides 8.6 Mg Tablet) 17.2 mg PO BEDTIME PRN PRN Reason: Constipation Sodium Chloride (0.9 % Sodium Chloride Flush 3 Ml Syringe) 3 ml IVFLUSH QSHIFT [facility] Last Admin: 08/31/21 07:53 Dose: 3 ml Documented by: EMEKA Labs CBC & Chem 7: 08/30/21 04:08 08/30/21 04:08 Assessment and Plan (1) Asthma exacerbation: Status: Acute Plan 46-year-old male with a past medical history of asthma, anxiety, depression, polysubstance abuse, history of pulmonary embolism on Eliquis; presented to the hospital today with a chief complaint of shortness of breath.? ? Noted to be in acute asthma exacerbation/ hypoxia.? Admitted for further management.? Acute hypoxic respiratory failure d/t moderate persistent asthma with acute exacerbation and exacerbated by cocaine use. -Continue IV solumedrol -Bronchodilators scheduled and PRN, cough medication -wean down O2 -Pulmonary input noted History of opiate dependence:? Continue methadone History of pulmonary embolism: Continue home Eliquis History of? anxiety:? patient reports that he is not taking buspirone anymore GI prophylaxis: Pepcid and DVT prophylaxis:? Patient on Eliquis Code status: Full code need for inaptient: Acute hypoxemic respiratory failure secondary to asthma exacerbation Quality Stroke Does the patient have a stroke diagnosis?: No VTE Prior VTE?: No VTE Risk Level:: Medical - moderate - high VTE Device Contraindication: Treatment Not Indicated VTE Drug Contraindication: N/A - Med Ordered
[2021-08-31] MEDS: Benzonatate 100 MG CAPSULE PO ×3 (12:12→23:14)
[2021-08-31] MEDS: guaiFENesin 100 MG/5 ML LIQUID PO ×3 (12:12→22:28)
--- NOTE | 2021-08-31 14:38 | MHC.CM.PN ---
per rounds pt is starting on steroids and is not ready for dc
[2021-08-31] MEDS: Melatonin 3 MG TABLET 6 MG PO (22:28)
[2021-09-01] VITALS (10 sets, daily range): BP systolic 98–140; BP diastolic 61–77; PULSE 76–100; RESP 17–20; TEMP 36.6–37.2; O2SAT 94–97
[2021-09-01] MEDS: methylPREDNISolone Sod Succ 40 MG/ML VIAL IVPUSH ×2 (05:55→11:34)
[2021-09-01] MEDS: guaiFENesin 100 MG/5 ML LIQUID PO (05:57)
[2021-09-01] MEDS: Albuterol/Iprat 2.5/0.5MG 3 ML AMPUL.NEB INHALE ×4 (07:19→20:58)
[2021-09-01] MEDS: Benzonatate 100 MG CAPSULE PO ×2 (07:47→22:06)
[2021-09-01] MEDS: 0.9 % Sodium Chloride Flush 3 ML SYRINGE IVFLUSH ×3 (07:47→22:09)
[2021-09-01] MEDS: Famotidine 20 MG TABLET PO ×2 (07:48→22:07)
[2021-09-01] MEDS: Apixaban 5 MG TABLET PO ×2 (07:48→22:07)
[2021-09-01] MEDS: methADONE HCl 20 MG/2 ML ORAL.CONC 90 MG PO (07:48)
--- NOTE | 2021-09-01 08:16 | HO.PM.IMPN ---
Subjective Subjective Date of Service: 09/01/21 Interval History: Asthma exacerbation Review of Systems Feels short of breath, talking in short sentences Still has aggressive cough Denies any chest pain or abdominal pain or nausea vomiting Physical Exam Vital Signs: Vital Signs: Last Vital Signs Temp 98.3 F 09/01/21 07:22 Pulse 98 09/01/21 07:22 Resp 18 09/01/21 07:22 BP 98/77 09/01/21 07:22 Pulse Ox 94 09/01/21 07:22 Oxygen Flow Rate 10 08/29/21 04:02 BMI result Body Mass Index 23.0 General: AO X 3, no acute distress Resp:? air entry diminshed ,b/l wheezing CVS: S1,S2,RRR GI: +BS, NT, no distention Skin: No rash Neuro:? motor grossly intact Psych: appropriate affect Objective Data Active Medications Acetaminophen (Acetaminophen 325 Mg Tablet) 650 mg PO Q6H PRN PRN Reason: Pain, Mild (Pain Scale 1-3) Albuterol/Ipratropium (Albuterol/Iprat 2.5/0.5mg 3 Ml Ampul.Neb) 3 ml INHALE RQ4H WHILE AWAKE [facility] Last Admin: 09/01/21 07:19 Dose: 3 ml Documented by: ALIS Albuterol/Ipratropium (Albuterol/Iprat 2.5/0.5mg 3 Ml Ampul.Neb) 3 ml INHALE RQ4H PRN PRN Reason: Shortness of Breath/Wheezing Last Admin: 08/31/21 00:51 Dose: 3 ml Documented by: JESSICA Apixaban (Apixaban 5 Mg Tablet) 5 mg PO BID [facility] Last Admin: 09/01/21 07:48 Dose: 5 mg Documented by: KAROLINA Benzonatate (Benzonatate 100 Mg Capsule) 100 mg PO TID PRN PRN Reason: Cough Last Admin: 09/01/21 07:47 Dose: 100 mg Documented by: KAROLINA Famotidine (Famotidine 20 Mg Tablet) 20 mg PO BID [facility] Last Admin: 09/01/21 07:48 Dose: 20 mg Documented by: KAROLINA Guaifenesin (Guaifenesin 100 Mg/5 Ml Liquid) 5 ml PO Q4H PRN PRN Reason: Cough Last Admin: 09/01/21 05:57 Dose: 5 ml Documented by: MAGALY Melatonin (Melatonin 3 Mg Tablet) 6 mg PO BEDTIME PRN PRN Reason: Insomnia Last Admin: 08/31/21 22:28 Dose: 6 mg Documented by: MAGALY Methadone HCl (Methadone Hcl 20 Mg/2 Ml Oral.Conc) 90 mg PO DAILY [facility] Last Admin: 09/01/21 07:48 Dose: 90 mg Documented by: KAROLINA Methylprednisolone Sodium Succinate (Methylprednisolone Sod Succ 40 Mg/Ml Vial) 40 mg IVPUSH Q6H [facility] Last Admin: 09/01/21 05:55 Dose: 40 mg Documented by: MAGALY Senna (Sennosides 8.6 Mg Tablet) 17.2 mg PO BEDTIME PRN PRN Reason: Constipation Sodium Chloride (0.9 % Sodium Chloride Flush 3 Ml Syringe) 3 ml IVFLUSH QSHIFT [facility] Last Admin: 09/01/21 07:47 Dose: 3 ml Documented by: KAROLINA Labs CBC & Chem 7: 08/30/21 04:08 08/30/21 04:08 Assessment and Plan (1) Hypoxia: Status: Acute Plan 46-year-old male with a past medical history of asthma, anxiety, depression, polysubstance abuse, history of pulmonary embolism on Eliquis; presented to the hospital today with a chief complaint of shortness of breath.? ? Noted to be in acute asthma exacerbation/ hypoxia.? Admitted for further management.? Acute hypoxic respiratory failure d/t moderate persistent asthma with acute exacerbation and exacerbated by cocaine use. -Continue IV solumedrol,Bronchodilators scheduled and PRN, cough medication -wean down O2 cxr-lungs seems clear , vbg noted -Pulmonary input noted: Adjusted steroids, continue nebs and cough medications. History of opiate dependence:? Continue methadone History of pulmonary embolism: Continue home Eliquis History of? anxiety:? patient reports that he is not taking buspirone anymore GI prophylaxis: Pepcid and DVT prophylaxis:? Patient on Eliquis Code status: Full code need for inaptient:? Acute hypoxemic respiratory failure secondary to asthma exacerbation Quality Stroke Does the patient have a stroke diagnosis?: No VTE Prior VTE?: No VTE Risk Level:: Medical - moderate - high VTE Device Contraindication: Treatment Not Indicated VTE Drug Contraindication: N/A - Med Ordered
[2021-09-01 09:46] LABS: VBG Base Excess 2.7 mmol/L; VBG HCO3 26 mmol/L (22-26); VBG pCO2 37 mmHg; VBG pH 7.46 (7.32-7.43); VBG pO2 98 mmHg
[2021-09-01 09:51] LABS: Venous Blood Gas Refer to POC result
--- NOTE | 2021-09-01 10:12 | MHC.CARE ---
CARE Team meets with pt upon receiving an order for a consult.? The reason for the consult is Anxiety.? Pt is a 46 y/o, Latvian speaking, male who is previously unknown to CARE Team.? Pt came to the ED on 08/29/21 with a complaint of asthma exacerbation.? Patient attempted to use his rescue inhaler at home with no relief.? When this did not help, patient called EMS.? Pt has hx of anxiety, depression, and polysubstance abuse.? Pt is alert and oriented x4 and is seen in his room (450-1) on the Intermediate Care Unit.? He is pleasant, demonstrating a full range of affect.? He is thin, neat in appearance, and appears his stated age.? He is engaged in the consult and is pleasant and polite.? He reports a hx of anxiety after the of his Mother when he was a youth.? There appeared to have been a great deal of uncertainty regarding where he and his 2 siblings would live and whether they would be together in the same home.? Pt stated that his grandmother took him and his siblings into her home to keep them together.? He reported that his grandmother passed and he was her primary ocular care technologist, this was anxiety provoking as well.? Pt stated that beyond those two incidents, he has not experienced an abnormal level of anxiety until he was put on steroids for his breathing issues.? He describes being jittery, having difficulty sleeping, and some feelings peyman to anxiety since he started the steroids.? He stated he no longer feels that way and has had a few nights of really good sleep. Pt has services in place in the form of a counselor he regularly sees.? Pt stated that should he require any services while in the hospital, he would ask that his caregivers contact CARE Team. Pt does not appear to be experiencing anxiety.
[2021-09-01] MEDS: guaiFEN/Codeine SF 200/20/10ML 10 ML LIQUID 5 ML PO ×4 (10:54→22:07)
--- NOTE | 2021-09-01 13:27 | PM.PNPUL ---
Subjective Subjective Date of Service: 09/01/21 Interval history: dyspnea and FiO2 requirements improving, however still has significant wheezing. Objective Data Labs CBC & Chem 7: 08/30/21 04:08 08/30/21 04:08 Labs: Laboratory Results - last 24 hr 09/01/21 09:34 VBG pH 7.46 H VBG pCO2 37 VBG pO2 98 VBG HCO3 26 VBG O2 Saturation 99.0 VBG Base Excess 2.7 Imaging Chest x-ray: My impression: Essentially normal chest x-ray. Review of Systems Cardiovascular: Reports dyspnea Respiratory: Reports cough, Reports dyspnea and Reports wheezing Allergic/Immunologic: Reports wheezing Physical Exam Vital Signs: Vital Signs: Last Vital Signs Temp 97.8 F 09/01/21 11:12 Pulse 87 09/01/21 11:21 Resp 18 09/01/21 11:21 BP 104/61 09/01/21 11:12 Pulse Ox 96 09/01/21 11:12 Oxygen Flow Rate 10 08/29/21 04:02 BMI result Body Mass Index 23.0 Const: General: no acute distress, alert and awake Eyes: Sclerae: sclerae normal EOM: EOMs intact bilaterally Neck: Neck: Yes no lymphadenopathy, Yes trachea midline and Yes supple Resp: Effort & Inspection: normal respiratory effort and no respiratory distress Auscultation: wheezes expiratory wheezes ( Bilateral) Cardio: Rate: regular rate Rhythm: regular rhythm Heart sounds: no gallops, no murmurs and no rubs GI: Palpation (GI): Soft to palpation and Other GI palpation findings present ( Nontender) Auscultation: normal bowel sounds Extrem: General: Yes no pedal edema, No clubbing and No cyanosis Procedures Date of Service Date of Service: 09/01/21 Assessment and Plan Assessment and plan (1) Moderate persistent asthma with exacerbation: Status: Acute (2) Hypoxia: Status: Acute (3) Lung problems from crack cocaine: Status: Acute Plan Impression: 46-year-old gentleman with underlying history of asthma, cocaine induced lung disease, and PE on anticoagulation admitted with hypoxia, positive for cocaine initially requiring high-flow supplemental oxygen to maintain normal oximetry, now titrated down to 4 to 5 L. Improving on nebulized bronchodilators and systemic glucocorticoids. Likely etiology is and exacerbation of underlying asthma/ cocaine lung disease from continued cocaine use. Recommendations: Agree with Solu-Medrol on, consider decreasing to an equivalent of 60 mg a day. Agree with nebulized bronchodilators. Continue to titrate down supplemental oxygen as needed. Will continue to follow. Time Spent With Patient Time: Total time spent is greater than 50% in coordination of care (as documented) at patient's floor/unit and/or counseling patient: Progress Note: Quality Stroke Does the patient have a stroke diagnosis?: No
[2021-09-01] MEDS: Melatonin 3 MG TABLET 6 MG PO (22:07)
[2021-09-02] VITALS (11 sets, daily range): BP systolic 103–134; BP diastolic 59–74; PULSE 72–94; RESP 16–20; TEMP 36.1–37.4; O2SAT 92–97
[2021-09-02] MEDS: methylPREDNISolone Sod Succ 40 MG/ML VIAL IVPUSH ×2 (01:15→12:03)
[2021-09-02] MEDS: guaiFEN/Codeine SF 200/20/10ML 10 ML LIQUID 5 ML PO ×4 (06:43→19:24)
--- NOTE | 2021-09-02 08:20 | P.PNIM_ITS ---
Subjective Subjective Date of Service: 09/02/21 Interval History: Asthma exacerbation Review of Systems still sob with minimal excersion aggressive cough No fever or chills or nausea or vomiting Physical Exam Vital Signs: Vital Signs: Last Vital Signs Temp 98.4 F 09/02/21 07:37 Pulse 72 09/02/21 07:37 Resp 18 09/02/21 07:37 BP 103/60 09/02/21 07:37 Pulse Ox 95 09/02/21 07:37 Oxygen Flow Rate 10 08/29/21 04:02 BMI result Body Mass Index 23.0 ?General: AO X 3, no acute distress Resp:? air entry diminshed ,b/l wheezing CVS: S1,S2,RRR GI: +BS, NT, no distention Skin: No rash Neuro:? motor grossly intact Psych: appropriate affec Objective Data Active Medications Acetaminophen (Acetaminophen 325 Mg Tablet) 650 mg PO Q6H PRN PRN Reason: Pain, Mild (Pain Scale 1-3) Albuterol/Ipratropium (Albuterol/Iprat 2.5/0.5mg 3 Ml Ampul.Neb) 3 ml INHALE RQ4H WHILE AWAKE [facility] Last Admin: 09/01/21 20:58 Dose: 3 ml Documented by: JESSICA Albuterol/Ipratropium (Albuterol/Iprat 2.5/0.5mg 3 Ml Ampul.Neb) 3 ml INHALE RQ4H PRN PRN Reason: Shortness of Breath/Wheezing Last Admin: 08/31/21 00:51 Dose: 3 ml Documented by: JESSICA Apixaban (Apixaban 5 Mg Tablet) 5 mg PO BID [facility] Last Admin: 09/01/21 22:07 Dose: 5 mg Documented by: MAGALY Benzonatate (Benzonatate 100 Mg Capsule) 100 mg PO TID PRN PRN Reason: Cough Last Admin: 09/01/21 22:06 Dose: 100 mg Documented by: MAGALY Famotidine (Famotidine 20 Mg Tablet) 20 mg PO BID [facility] Last Admin: 09/01/21 22:07 Dose: 20 mg Documented by: MAGALY Guaifenesin (Guaifenesin 100 Mg/5 Ml Liquid) 5 ml PO Q4H PRN PRN Reason: Cough Last Admin: 09/01/21 05:57 Dose: 5 ml Documented by: MAGALY Guaifenesin/Codeine Phosphate (Guaifen/Codeine Sf 200/20/10ml 10 Ml Liquid) 5 ml PO Q4H [facility] Last Admin: 09/02/21 06:43 Dose: 5 ml Documented by: MAGALY Melatonin (Melatonin 3 Mg Tablet) 6 mg PO BEDTIME PRN PRN Reason: Insomnia Last Admin: 09/01/21 22:07 Dose: 6 mg Documented by: MAGALY Methadone HCl (Methadone Hcl 20 Mg/2 Ml Oral.Conc) 90 mg PO DAILY [facility] Last Admin: 09/01/21 07:48 Dose: 90 mg Documented by: KAROLINA Methylprednisolone Sodium Succinate (Methylprednisolone Sod Succ 40 Mg/Ml Vial) 40 mg IVPUSH Q12H [facility] Last Admin: 09/02/21 01:15 Dose: 40 mg Documented by: MAGALY Senna (Sennosides 8.6 Mg Tablet) 17.2 mg PO BEDTIME PRN PRN Reason: Constipation Sodium Chloride (0.9 % Sodium Chloride Flush 3 Ml Syringe) 3 ml IVFLUSH QSHIFT [facility] Last Admin: 09/01/21 22:09 Dose: 3 ml Documented by: MAGALY Labs CBC & Chem 7: 08/30/21 04:08 08/30/21 04:08 Labs: Laboratory Results - last 24 hr 09/01/21 09:34 VBG pH 7.46 H VBG pCO2 37 VBG pO2 98 VBG HCO3 26 VBG O2 Saturation 99.0 VBG Base Excess 2.7 Assessment and Plan (1) Hypoxia: Status: Acute Plan 46-year-old male with a past medical history of asthma, anxiety, depression, polysubstance abuse, history of pulmonary embolism on Eliquis; presented to the hospital today with a chief complaint of shortness of breath.? ? Noted to be in acute asthma exacerbation/ hypoxia.? Admitted for further management.? Acute hypoxic respiratory failure d/t moderate persistent asthma with acute e xacerbation and exacerbated by cocaine use. still sob with minimal excersion -wean down O2 cxr-lungs seems clear , vbg noted Pulmonary input noted: Continue IV solumedrol,Bronchodilators scheduled and PRN, cough medication. History of opiate dependence:? Continue methadone. History of pulmonary embolism: Continue home Eliquis. History of? anxiety:? patient reports that he is not taking buspirone anymore GI prophylaxis: Pepcid . DVT prophylaxis:? Patient on Eliquis Code status: Full code need for inaptient:? Acute hypoxemic respiratory failure secondary to asthma exacerbation Quality Stroke Does the patient have a stroke diagnosis?: No VTE Prior VTE?: No VTE Risk Level:: Medical - moderate - high VTE Device Contraindication: Treatment Not Indicated VTE Drug Contraindication: N/A - Med Ordered
[2021-09-02] MEDS: methADONE HCl 20 MG/2 ML ORAL.CONC 90 MG PO (09:34)
[2021-09-02] MEDS: Famotidine 20 MG TABLET PO ×2 (09:34→19:47)
[2021-09-02] MEDS: Apixaban 5 MG TABLET PO ×2 (09:34→19:47)
[2021-09-02] MEDS: 0.9 % Sodium Chloride Flush 3 ML SYRINGE IVFLUSH ×2 (09:34→16:03)
[2021-09-02] MEDS: Albuterol/Iprat 2.5/0.5MG 3 ML AMPUL.NEB INHALE ×4 (09:43→19:32)
--- NOTE | 2021-09-02 12:46 | MHC.CM.PN ---
Per ROUNDS discussion, Patient is not yet medically cleared for dc (Respiratory Failure/IV Solu Medrol); Home is the goal for dc and cM will follow for possible need to adjust the dc plan.
[2021-09-03] VITALS (7 sets, daily range): BP systolic 119–123; BP diastolic 71–78; PULSE 80–123; RESP 16–20; TEMP 36.6; O2SAT 90–93
[2021-09-03] MEDS: 0.9 % Sodium Chloride Flush 3 ML SYRINGE IVFLUSH ×2 (00:10→10:56)
[2021-09-03] MEDS: methylPREDNISolone Sod Succ 40 MG/ML VIAL IVPUSH ×2 (00:10→10:59)
[2021-09-03] MEDS: Albuterol/Iprat 2.5/0.5MG 3 ML AMPUL.NEB INHALE ×2 (07:28→11:07)
[2021-09-03] MEDS: methADONE HCl 20 MG/2 ML ORAL.CONC 90 MG PO (10:55)
[2021-09-03] MEDS: guaiFEN/Codeine SF 200/20/10ML 10 ML LIQUID 5 ML PO ×2 (10:55→14:36)
[2021-09-03] MEDS: Famotidine 20 MG TABLET PO (10:55)
[2021-09-03] MEDS: Apixaban 5 MG TABLET PO (10:56)
--- NOTE | 2021-09-03 11:07 | P.DS_ITS ---
DS: Providers Provider Date of Service: 09/03/21 Date of admission: 08/29/21 05:31 Primary care physician: JOHANN Dunn Consults: 08/29/21 05:31 Consult to Pulmonology Routine Consulting Provider: Riley Borjas Reason for consultation: acute asthma / hypoxia 08/29/21 06:22 Addiction Medicine Routine Consulting Provider: Leona Sheikh Reason for consultation: Opiate dependence on methadone 09/01/21 08:15 Consult to Care Team Routine Comment: Reason for consultation: anxiety DS: Diagnosis Discharge Diagnosis (1) Hypoxia: Status: Acute DS: Summary Hospital Course Hospital Course: Chief Complaint: ? Shortness of breath ?46-year-old male with a past medical history of asthma, anxiety, depression, polysubstance abuse, history of pulmonary embolism on Eliquis; presented to the hospital today with a chief complaint of shortness of breath.? Patient reports that over the past 1 day he has been having shortness of breath associated dry cough; denies any fevers and chills.? Tried his home rescue inhalers with no significant improvement; ?after he woke up around 02:00 he could not breathe, subsequently called EMS and presented to the ER for further evaluation. denies any chest pain or palpitations Denies any nausea vomiting or diarrhea.? Denies any urinary symptoms.? Review of all other systems is negative except mentioned above ER course: Per ER team patient on EMS arrival noted to be saturating 80%; given nebulizations and steroids.? Placed on supplemental oxygen; on arrival to the ER patient was saturating 99%? on 10 L of supplemental oxygen; patient was given nebulizations; oxygenation improved.? Patient was saturating well on room air.? When tried to discharge the patient on ambulation patient desaturated to 80; placed back on supplemental oxygen and started to wheeze again.? Decided to admit to the hospital for further management.? Patient also received magnesium. Hospital course: Patient was admitted for acute hypoxic respiratory failure due to asthma exacerbation in conjunction with a cocaine induced lung injury. Initially required higher amount of oxygen including high-flow oxygen but ultimately was able to be weaned to non-rebreather ultimately to nasal cannula and now is on room air. He was assessed by our hot wound spring production supervisor Dr. Werner of and recommended treatment with her bronchodilators and steroid overall the patient is feeling much better at this time a breathing very comfortably he is off oxygen saturating at 92% and feel very comfortable going home. I advised that he follow-up with the pulmonology Clinic [facility] and also to follow up with her primary care doctor also very importantly we discussed the need for avoiding substance use particularly cocaine and also to avoid regular tobacco us e. He will be discharged with prednisone taper. Time Spent with Patient Time attestation: Total time spent providing and/or coordinating discharge services: Discharge coordination time: Greater than 30 minutes Quality: Safe Use of Opioids Does Pt have an Active Cancer Diagnosis on the Problem List?: No Quality: Stroke Does the patient have a stroke diagnosis?: No Physical Exam Vital Signs: Vital Signs: Last Vital Signs Temp 97.8 F 09/03/21 07:34 Pulse 81 09/03/21 07:34 Resp 19 09/03/21 07:34 BP 119/78 09/03/21 07:34 Pulse Ox 92 09/03/21 07:34 Oxygen Flow Rate 10 08/29/21 04:02 BMI result Body Mass Index 23.0 Discharge Plan Discharge Anticipated Discharge Date/Time: 09/03/21 10:53 Patient Disposition: Home, Self-Care Discharge Diagnosis: Asthma exacerbation Referrals: Kishor Barrett, GYN-BC [Primary Care Provider] - 1 Week Discharge Medications: New prednisone 10 mg tablet See Taper mg PO DAILY Qty: 20 0RF Taper: Prednisone 40 mg daily for 3 Days and 0 Hour 30 mg daily for 3 Days and 0 Hour 20 mg daily for 3 Days and 0 Hour 10 mg daily for 3 Days and 0 Hour Continued Eliquis 5 mg tablet 5 mg PO BID Qty: 120 0RF albuterol sulfate 90 mcg/actuation HFA aerosol inhaler 2 puff inhalation Q4H PRN (Reason: bronchospasm) 30 Days Qty: 8.5 2RF multivitamin Tablet 1 tab PO DAILY 0RF No Action (DME) nebulizers Misc See Rx Instructions .Route Qty: 1 0RF Rx Instructions: Use every 4 hours as needed for SOB, wheezing Discharge Orders: Discharge Order (Routine); Ordered 09/03/21 Ordered By: [facility] Diet: advance to usual diet Activity on Discharge: As tolerated Stand Alone Forms: Patient Portal Discharge page Care Plan Goals: Prevent rehospitalization, control of lung problems Health Concerns: Chronic lung disease, ashtma Plan of Treatment: Take Prednisone and inhalers as directed and follow up with you Doctor in a week, call for appointment Assessment: As above
--- NOTE | 2021-09-03 11:22 | MHC.CM.PN ---
PT TO DC HOME TODAY WITH NO SERVICES
== END 2021-09-03 15:00 | disposition home or self-care (01) | DRG 816 ==
LOC: HO.ED 05:33 → HO.EDOVER 05:39 → HO.IMC 08-30 15:24
PROVIDERS: Internal Medicine; Internal Medicine Pulmonary Disease; Admitting Provider Hospitalist; Emergency Provider Emergency Medicine; PCP Nurse Practitioner Family; Visit Provider Internal Medicine
DX: T40.5X1A Poisoning by cocaine, accidental (unintentional), initial encounter (principal); J96.01 Acute respiratory failure with hypoxia; J70.4 Drug-induced interstitial lung disorders, unspecified; J45.41 Moderate persistent asthma with (acute) exacerbation; F11.20 Opioid dependence, uncomplicated; F32.A Depression, unspecified; F41.9 Anxiety disorder, unspecified; F14.988 Cocaine use, unspecified with other cocaine-induced disorder; Z20.822 Contact with and (suspected) exposure to COVID-19; Z79.01 Long term (current) use of anticoagulants; Z86.711 Personal history of pulmonary embolism; Z87.891 Personal history of nicotine dependence; Z88.6 Allergy status to analgesic agent; Z88.8 Allergy status to other drugs, medicaments and biological substances; Z79.899 Other long term (current) drug therapy
CPT/HCPCS: 36415; 36600; 71045; 80048; 80307; 82803; 83735; 85025; 87502; 87635; 94640; 94664; 96365; 96366; 99285; J2920; J3475

== ENCOUNTER → 2021-12-27 09:57 | Outpatient (BNVA) | payer OTHER, SELFPAY | PROVIDERS: PCP Nurse Practitioner Family; Visit Provider Internal Medicine Pulmonary Disease | DX: J45.909 Unspecified asthma, uncomplicated (principal); R93.89 Abnormal findings on diagnostic imaging of other specified body structures; Z91.09 Other allergy status, other than to drugs and biological substances | CPT/HCPCS: 99212 ==

== ENCOUNTER 2021-12-28 08:42 | Outpatient (REF) | payer OTHER, SELFPAY ==
[2021-12-28 09:02] LABS: MANUAL DIFF FLAG NO
[2021-12-28 09:44] LABS: Basophils Percent Auto 0.8 % (0-2); Eosinophils Absolute Auto 0.5 X10*3/uL (0.0-0.4); Eosinophils Percent Auto 9.4 % (0-4); Hematocrit 37.8 % (42.0-52.0); Hemoglobin 12.2 g/dl (14.0-18.0); Imm Gran Abs Auto 0.01 X10*3/uL (0.00-0.03); Imm Gran Pct Auto 0.2 % (0.0-0.4); Lymphocytes Absolute Auto 2.5 X10*3/uL (1.2-4.9); Lymphocytes Percent Auto 49.6 % (20-40); Mean Corpuscular HGB Conc 32.3 g/dl (31.0-36.0); Mean Corpuscular Hemoglobin 31.3 pg (27.0-33.0); Mean Corpuscular Volume 96.9 fL (80.0-98.0); Mean Platelet Volume 9.9 fL (9.4-12.4); Monocytes Absolute Auto 0.4 X10*3/uL (0.1-1.2); Monocytes Percent Auto 7.8 % (2-11); Neutrophils Absolute Auto 1.6 x10*3/uL (2.0-8.3); Neutrophils Percent Auto 32.2 % (45-73); Platelet Count 207 X10*3/uL (160-400); Red Cell Distribution Width 12.4 % (11.0-16.0); White Blood Count 5.1 X10*3/uL (4.8-10.8)
== END 2021-12-28 08:43 | disposition home or self-care (01) ==
LOC: HO.LAB 08:42
PROVIDERS: PCP Nurse Practitioner Family; Visit Provider Internal Medicine Pulmonary Disease
DX: J45.909 Unspecified asthma, uncomplicated (principal)
CPT/HCPCS: 36415; 82785; 85025; 86003

== ENCOUNTER 2022-01-03 07:57 | Outpatient (REF) | payer OTHER, SELFPAY ==
--- NOTE | 2022-01-03 11:29 | PFT_ITS ---
FLOWS: FEV1 65% of predicted at 2.69 L. FVC 82% predicted at 4.29 L. FEV1 to FVC ratio of 0.63. No bronchodilator response. LUNG VOLUMES: Total lung capacity 96% of predicted at 6.74 L. Residual volume 128% of predicted at 2.47 L. Slow vital capacity 84% of predicted at 4.27 L. Expiratory reserve volume 95% of predicted at 1.51 L. Diffusion capacity is normal. In comparison to pulmonary function test performed in October 2019, FEV1 has increased by 0.59 L, FVC and ERV have been without significant changes, total lung capacity has increased by 1.08 L, residual volume has increased by 0.82 L, slow vital capacity has increased by 0.26 L, diffusion capacity has increased by 7.11 mL/minute per mmHg. IMPRESSION: Moderate obstructive ventilatory defect with no bronchodilator response. Increased residual volume suggests air trapping. MD ALLISON Lindsey/MODL / [id number]
== END 2022-01-03 07:58 | disposition home or self-care (01) ==
LOC: HO.RESP 07:57
PROVIDERS: PCP Nurse Practitioner Family; Visit Provider Internal Medicine Pulmonary Disease
DX: J45.909 Unspecified asthma, uncomplicated (principal)
CPT/HCPCS: 94060; 94727; 94729

== ENCOUNTER 2022-01-06 16:30 | Outpatient (REF) | payer OTHER, SELFPAY ==
--- NOTE | ~2022-01-06 | CT_ITS ---
EXAMINATION: CT CHEST WITHOUT CONTRAST CLINICAL INFORMATION: Abnormal findings on diagnostic imaging of other specified body COMPARISON: 09/25/2020 TECHNIQUE: Multidetector volumetric CT imaging of the chest was done. Axial MIP volume rendering provided. Sagittal and coronal reformatted images were obtained. This CT examination was performed using dose optimization techniques as appropriate, variously including the following: *Automated exposure control *Adjustment of mA and/or kV according to patient size (this includes techniques or standardized protocols for targeted exams where dose is matched to indication/reason for exam; i.e. extremities or head) *Use of iterative reconstruction technique DLP: 129 mGy-cm FINDINGS: LUNGS: No parenchymal consolidation or evidence of pneumonitis. Minimal diffuse bronchial wall thickening without bronchiectasis. No pulmonary nodules. MEDIASTINUM: Normal heart size. No pericardial effusion. Great vessels normal caliber. No mediastinal or hilar lymphadenopathy. CORONARY ARTERY CALCIFICATION: None visualized on this study. PLEURA: There is no pleural effusion. No pleural mass or thickening. AXILLA: No lymphadenopathy. UPPER ABDOMEN: Unremarkable. OSSEOUS STRUCTURES: No acute or suspicious osseous abnormalities. CT/CT chest wo IV con IMPRESSION: * Minimal diffuse bronchial thickening as can be seen with mild bronchitis and/or asthma. * No pulmonary nodules, masses or consolidation. * No evidence of interstitial lung disease otherwise. * Exam otherwise unremarkable. Fleischner guidelines were followed.
== END 2022-01-06 16:31 | disposition home or self-care (01) ==
LOC: HO.CT 16:30
PROVIDERS: PCP Nurse Practitioner Family; Visit Provider Internal Medicine Pulmonary Disease
DX: R93.89 Abnormal findings on diagnostic imaging of other specified body structures (principal)
CPT/HCPCS: 71250

== ENCOUNTER → 2022-01-10 11:37 | Outpatient (BNVA) | payer OTHER, SELFPAY | PROVIDERS: PCP Nurse Practitioner Family; Visit Provider Internal Medicine Pulmonary Disease | DX: J45.909 Unspecified asthma, uncomplicated (principal); I26.99 Other pulmonary embolism without acute cor pulmonale; Z91.09 Other allergy status, other than to drugs and biological substances; Z79.01 Long term (current) use of anticoagulants; Z79.899 Other long term (current) drug therapy | CPT/HCPCS: 99212 ==

== ENCOUNTER 2022-01-30 10:43 | Outpatient (REF) | payer OTHER, SELFPAY | END 2022-01-30 10:44 | disposition home or self-care (01) | LOC: HO.MDS 10:43 | PROVIDERS: Visit Provider Internal Medicine Pulmonary Disease | DX: J45.50 Severe persistent asthma, uncomplicated (principal) | CPT/HCPCS: 96372; J2357 ==

== ENCOUNTER → 2022-01-31 14:54 | Outpatient (BNVA) | payer OTHER, SELFPAY | PROVIDERS: PCP Nurse Practitioner Family; Visit Provider Internal Medicine Pulmonary Disease | DX: J45.909 Unspecified asthma, uncomplicated (principal); Z91.09 Other allergy status, other than to drugs and biological substances | CPT/HCPCS: 99212 ==

== ENCOUNTER 2022-02-17 11:27 | Outpatient (REF) | payer OTHER, SELFPAY | END 2022-02-17 11:28 | disposition home or self-care (01) | LOC: HO.MDS 11:27 | PROVIDERS: Visit Provider Internal Medicine Pulmonary Disease | DX: J45.50 Severe persistent asthma, uncomplicated (principal) | CPT/HCPCS: 96372; J2357 ==

== ENCOUNTER 2022-03-15 14:02 | Outpatient (REF) | payer OTHER, SELFPAY | END 2022-03-15 14:03 | disposition home or self-care (01) | LOC: HO.MDS 14:02 | PROVIDERS: Visit Provider Internal Medicine Pulmonary Disease | DX: J45.50 Severe persistent asthma, uncomplicated (principal) | CPT/HCPCS: 96372; J2357 ==

== ENCOUNTER → 2022-03-16 11:01 | Outpatient (BNVA) | payer OTHER, SELFPAY | PROVIDERS: PCP Nurse Practitioner Family; Visit Provider Internal Medicine Pulmonary Disease | DX: J45.909 Unspecified asthma, uncomplicated (principal); Z91.09 Other allergy status, other than to drugs and biological substances; J20.8 Acute bronchitis due to other specified organisms; B96.89 Other specified bacterial agents as the cause of diseases classified elsewhere | CPT/HCPCS: 99212 ==

== ENCOUNTER 2022-03-29 15:13 | Outpatient (REF) | payer OTHER, SELFPAY | END 2022-03-29 15:14 | disposition home or self-care (01) | LOC: HO.MDS 15:13 | PROVIDERS: PCP Nurse Practitioner Family; Visit Provider Internal Medicine Pulmonary Disease | DX: J45.41 Moderate persistent asthma with (acute) exacerbation (principal) | CPT/HCPCS: 96372; J2357 ==

== ENCOUNTER 2022-04-12 11:51 | Outpatient (REF) | payer OTHER, SELFPAY | END 2022-04-12 11:52 | disposition home or self-care (01) | LOC: HO.MDS 11:51 | PROVIDERS: Visit Provider Internal Medicine Pulmonary Disease | DX: J45.50 Severe persistent asthma, uncomplicated (principal) | CPT/HCPCS: 96372; J2357 ==

== ENCOUNTER 2022-04-26 12:36 | Outpatient (REF) | payer OTHER, SELFPAY | END 2022-04-26 12:37 | disposition home or self-care (01) | LOC: HO.MDS 12:36 | PROVIDERS: Visit Provider Internal Medicine Pulmonary Disease | DX: J45.50 Severe persistent asthma, uncomplicated (principal) | CPT/HCPCS: 96372; J2357 ==

== ENCOUNTER 2022-05-10 15:42 | Outpatient (REF) | payer OTHER, SELFPAY | END 2022-05-10 15:43 | disposition home or self-care (01) | LOC: HO.MDS 15:42 | PROVIDERS: Visit Provider Internal Medicine Pulmonary Disease | DX: J45.50 Severe persistent asthma, uncomplicated (principal) | CPT/HCPCS: 96372; J2357 ==

== ENCOUNTER 2022-05-30 10:42 | Outpatient (REF) | payer OTHER, SELFPAY | END 2022-05-30 10:43 | disposition home or self-care (01) | LOC: HO.MDS 10:42 | PROVIDERS: Visit Provider Internal Medicine Pulmonary Disease | DX: J45.50 Severe persistent asthma, uncomplicated (principal) | CPT/HCPCS: 96372; J2357 ==

== ENCOUNTER → 2022-08-29 09:25 | Outpatient (BNVA) | payer OTHER, SELFPAY | PROVIDERS: PCP Nurse Practitioner Family; Visit Provider Nurse Practitioner Family | DX: J45.40 Moderate persistent asthma, uncomplicated (principal); J70.3 Chronic drug-induced interstitial lung disorders; T40.5X5A Adverse effect of cocaine, initial encounter; Y92.9 Unspecified place or not applicable; Z91.09 Other allergy status, other than to drugs and biological substances; I26.99 Other pulmonary embolism without acute cor pulmonale; F17.210 Nicotine dependence, cigarettes, uncomplicated; Z79.01 Long term (current) use of anticoagulants | CPT/HCPCS: 99212 ==

== ENCOUNTER → 2022-10-03 10:31 | Outpatient (BNVA) | payer OTHER, SELFPAY | PROVIDERS: PCP Nurse Practitioner Family; Visit Provider Internal Medicine Pulmonary Disease | DX: J45.50 Severe persistent asthma, uncomplicated (principal); Z79.899 Other long term (current) drug therapy; Z91.09 Other allergy status, other than to drugs and biological substances | CPT/HCPCS: 99212 ==

== ENCOUNTER 2022-12-13 10:04 | Outpatient (AMB) | payer OTHER, SELFPAY ==
--- NOTE | 2022-12-13 10:16 | A.OFFVIS_ITS ---
Intake Vital Signs 12/13/22 10:17 Height 5 ft 11 in Weight 134 lb 7.712 oz BMI 18.8 BP 98/62 Blood Pressure Location Rt brachial Position Sitting Pulse 67 Pulse Source Doppler Pulse Oximetry (%) 95 Oxygen Delivery Method Room Air Intake Visit Reasons: asthma Allergies walnut Allergy (Unknown, Verified 12/13/22 10:20) SWELLING buprenorphine [From Suboxone] Allergy (Verified 12/13/22 10:20) swelling in his hands and rash naloxone [From Suboxone] Allergy (Verified 12/13/22 10:20) swelling in his hands and rash NSAIDS/ASA Allergy (Unknown, Uncoded 08/29/22 09:32) unknown walnuts Allergy (Unknown, Uncoded 08/29/22 09:32) anaphylaxis HPI asthma HPI Details 47-year-old gentleman with underlying history of asthma, PE? now on Eliquis, cocaine induced lung injury, severe persistent allergic asthma, and environmental allergies.? His symptoms a previously controlled on Xolair, however patient recently been [place] of [place] and has stopped his Xolair injections. He continues on trilogy Singulair, and albuterol MDI/nebs with suboptimal control of his symptoms. He is also complaining of acute exacerbation symptomatic with significant wheezing. [facility] Medical History Asthma Chronic lung disease Left against medical advice Lung problems from crack cocaine Moderate persistent asthma with exacerbation Opiate abuse, episodic Pulmonary emboli Family History Other Family history non-contributory Social History Household Members: Spouse Caregiver staying overnight: No Housing: House Do you presently have visiting nurse or other home services: No Alcohol intake: never Patient Tobacco Use Status: Current someday Tobacco user Tobacco use type: Cigarette Cigarettes Per Day: 2 e-Cigarette/Vaping Use: Never Used Second Hand Smoke Exposure: No service: No Current occupational status: unemployed Cognitive needs: No Hearing needs: No Vision needs: No Review of Systems Const Denies daytime sleepiness, Denies excessive sweating, Denies fatigue, Denies fever(s), Denies lethargy, Denies malaise, Denies night sweats, Denies snoring and Denies weight loss Eyes Denies blurry vision and Denies itchy eyes ENT Denies nasal congestion, Denies post nasal drip, Denies sinus pain, Denies sinus pressure and Denies other ( Thrush) Card Denies chest pain, Denies pedal edema, Denies dyspnea, Denies orthopnea and Denies paroxysmal nocturnal dyspnea Resp Denies cough, Denies hemoptysis, Denies excessive phlegm production, Denies dyspnea, Denies snoring and Reports wheezing GI Denies abdominal pain and Denies heartburn Musc Denies myalgias, Denies arthralgias and Denies joint swelling Skin/Breast Denies rash Neuro Denies memory loss and Denies seizure-like activity Psych Denies abnormal sleep pattern, Denies anxiety and Denies memory loss Endo Denies excessive sweating, Denies fatigue and Denies heat intolerance [place]/Lymph Denies easy bruising Aller/Immun Denies itchy eyes, Denies seasonal rhinorrhea and Reports wheezing Physical Exam Vital Signs: Last Vital Signs Pulse 67 12/13/22 10:17 BP 98/62 12/13/22 10:17 Pulse Ox 95 12/13/22 10:17 Oxygen Delivery Method Room Air 12/13/22 10:17 BMI result Body Mass Index 18.8 Const General: no acute distress and alert Nutritional Appearance: not obese Orientation/consciousness: Other orientation findings ( oriented) HEENT Head: Yes atraumatic Eyes General: appearance normal, both eyes and all related structures Sclerae: sclerae normal EOM: EOMs intact bilaterally Neck Neck: Yes supple Lymphatic: no lymphadenopathy noted Resp Effort & Inspection: normal respiratory effort and no use of accessory muscles Auscultation: wheezes expiratory wheezes (Mild throughout) Cardio Rate: regular rate Rhythm: regular rhythm Heart sounds: no gallops, no murmurs and no rubs Skin General skin exam: other ( warm) Extrem General: No clubbing, No cyanosis and No edema Assessment & Plan Assessment & Plan (1) Asthma: Code(s): J45.909 - Unspecified asthma, uncomplicated Plan: Suboptimally controlled as patient has stopped his Xolair. Restart Xolair. Continue trilogy and albuterol MDI/nebs. Will treat acute exacerbation with a course of prednisone. (2) Environmental allergies: Code(s): Z91.09 - Other allergy status, other than to drugs and biological substances Plan: Expect to improve with restarting Xolair. Medications: Refilled prednisone Take four tabs daily for 7 days, then go down by 1 tab every 7 days. 10 mg PO DIRECTED 70 tabs 0RF Coding Level of Care Code Est Pt Level 4 (57449) Diagnoses Asthma J45.909 Environmental allergies Z91.09
[2022-12-13 10:17] VITALS: BP 98/62; PULSE 67; O2SAT 95; BMI 18.8
== END 2022-12-13 10:29 | disposition home or self-care (01) ==
PROVIDERS: PCP Nurse Practitioner Family; Visit Provider Internal Medicine Pulmonary Disease
DX: J45.909 Unspecified asthma, uncomplicated (principal); Z91.09 Other allergy status, other than to drugs and biological substances
CPT/HCPCS: 99214

== ENCOUNTER → 2022-12-13 10:04 | Outpatient (BNVA) | payer OTHER, SELFPAY | PROVIDERS: PCP Nurse Practitioner Family; Visit Provider Internal Medicine Pulmonary Disease | DX: J45.909 Unspecified asthma, uncomplicated (principal); Z79.899 Other long term (current) drug therapy; Z91.09 Other allergy status, other than to drugs and biological substances | CPT/HCPCS: 99212 ==

== ENCOUNTER 2022-12-28 14:04 | Outpatient (REF) | payer OTHER, SELFPAY | END 2022-12-28 14:05 | disposition home or self-care (01) | LOC: HO.MDS 14:04 | PROVIDERS: Visit Provider Internal Medicine Pulmonary Disease | DX: J45.50 Severe persistent asthma, uncomplicated (principal) | CPT/HCPCS: 96372; J2357 ==

== ENCOUNTER 2023-01-10 10:29 | Outpatient (REF) | payer OTHER, SELFPAY | END 2023-01-10 10:30 | disposition home or self-care (01) | LOC: HO.MDS 10:29 | PROVIDERS: Visit Provider Internal Medicine Pulmonary Disease | DX: J45.50 Severe persistent asthma, uncomplicated (principal) | CPT/HCPCS: 96372; J2357 ==

== ENCOUNTER 2023-04-18 16:07 | Inpatient (IN) | payer OTHER, SELFPAY ==
[2023-04-18] VITALS (7 sets, daily range): BP systolic 108–134; BP diastolic 51–103; PULSE 82–112; RESP 16–20; TEMP 36.8–37.3; O2SAT 88–95; BMI 16.7
--- NOTE | ~2023-04-18 | XR_ITS ---
EXAMINATION: XR CHEST CLINICAL INFORMATION: Shortness of breath. COMPARISON: CT chest from 01/06/2022. Chest radiograph from 09/01/2021 and 08/29/2021. TECHNIQUE: 2 views of the chest were obtained (PA and lateral). FINDINGS: The lungs are hyperexpanded. Poorly defined hazy density on the PA view in the right lung base correlates with overlapping of the anterior right 7th rib and posterior right 11th rib (similar in appearance compared to exam from 08/29/2021; no pulmonary abnormality demonstrated on subsequent chest CT). Otherwise, no evidence of focal consolidation, pleural effusion, pulmonary edema, or pneumothorax. The cardiomediastinal silhouette is chronically narrowed. No acute osseous abnormalities. XR/XR chest 2V IMPRESSION: 1. No radiographically evident acute pulmonary abnormalities. 2. Chronic hyperexpansion of the lungs. 3. Apparent poorly defined hazy density seen on the PA view in the right lung base this favored to represent overlapping ribs, similar to exam from 2021. However, if symptoms persist follow-up with slight oblique images may further assess. No additional focal consolidative process.
--- NOTE | 2023-04-18 16:13 | ED_ITS ---
HPI - SOB/Dyspnea General Chief Complaint: Asthma Stated Complaint: SOB Time Seen by Provider: 04/18/23 17:03 Source: patient and family Mode of arrival: ambulatory History of Present Illness HPI Narrative: 48-year-old male who is on chronic anticoagulation, has a history of asthma and cocaine induced lung injury, currently followed by Dr. Borjas and also continues to use drugs. Specifically, reports sniffing heroin and last use was approximately 2-3 days ago. Patient reports he is become progressively short of breath over the past couple of days and states that his nebulizer is not helping him. Patient reports he has been taking his medications as prescribed. Related Data Home Medications Medication Instructions Recorded Confirmed polyethylene glycol 3350 17 17 g PO DAILY 08/29/22 gram/dose oral powder (Gavilax) sennosides 8.6 mg-docusate sodium 1 tab-cap PO BID 08/29/22 50 mg tablet (Senexon-S) Previous Rx's Medication Instructions Recorded nebulizers #1 ea 11/26/20 omalizumab 150 mg subcutaneous 225 mg subcut Q2W 28 days #3 ea 01/11/22 solution (Xolair) fluticasone fur. 200 mcg-umeclid 1 inh inhalation DAILY 30 days #1 10/04/22 62.5 mcg-vilant 25 mcg ea inhalat.powder (Trelegy Ellipta) montelukast 10 mg tablet 10 mg PO BEDTIME #30 tabs 11/06/22 apixaban 5 mg tablet (Eliquis) 5 mg PO BID #120 tabs 01/04/23 azithromycin 250 mg tablet See Rx Instructions PO .COMPLEX #6 01/04/23 tabs fluticasone propionate 50 2 spray intranasal DAILY #16 grams 01/04/23 mcg/actuation nasal spray,suspension (Allergy Relief (fluticasone)) hydroxyzine HCl 25 mg tablet 25 mg PO BID PRN anxiety 30 days 01/04/23 #60 tabs prednisone 10 mg tablet 10 mg PO DIRECTED #70 tabs 01/04/23 Ventolin HFA 90 mcg/actuation 2 puff PO Q4-6H PRN for wheezing 02/28/23 aerosol inhaler (albuterol sulfate) #18 ea albuterol sulfate 2.5 mg/3 mL 2.5 mg (3 mL) inhalation Q4-6H PRN 04/18/23 (0.083 %) solution for nebulization for wheezing #75 mL prednisone 50 mg tablet 50 mg PO DAILY 4 days #4 tabs 04/18/23 Allergies Allergy/AdvReac Type Severity Reaction Status Date / Time walnut Allergy Unknown SWELLING Verified 12/13/22 10:20 buprenorphine [From Suboxone] Allergy swelling Verified 12/13/22 10:20 in his hands and rash naloxone [From Suboxone] Allergy swelling Verified 12/13/22 10:20 in his hands and rash NSAIDS/ASA Allergy Unknown unknown Uncoded 08/29/22 09:32 walnuts Allergy Unknown anaphylaxis Uncoded 08/29/22 09:32 Review of Systems 2 Review of Systems: Pertinent positives and negatives as stated in [facility] Past Medical History Source: nursing notes reviewed Onset Date is defined in the Problem List Problems that require an onset date and time if occurred within 24 hrs of arrival to the ED Aortic Dissection and Rupture; Neurologic impairment; Cardiopulmonary Arrest; Endotracheal Intubation; Insertion or Replacement of Mechanical Circulatory Assist Device Medical History Moderate persistent asthma with exacerbation Opiate abuse, episodic Left against medical advice Lung problems from crack cocaine Chronic lung disease Asthma Pulmonary emboli Family History Family History Other Family history non-contributory Social History Social History Household Members: Spouse Housing: House Do you presently have visiting nurse or other home services: No Unable to assess alcohol history related to: Unknown Alcohol intake: never Patient Tobacco Use Status: Current someday Tobacco user Tobacco use type: Cigarette Cigarettes Per Day: 2 Smoked in Last 30 Days: No e-Cigarette/Vaping Use: Never Used Second Hand Smoke Exposure: No Use of substances other than those prescribed or required for medical reasons: No Advance Directives: No Advance Directives Information Provided: No service: No Current occupational status: unemployed Cognitive needs: No Hearing needs: No Vision needs: No Physical Exam 2 Vital Signs: Vital Signs: Last Vital Signs Temp 98.2 F 04/18/23 19:33 Pulse 105 H 04/18/23 19:33 Resp 16 04/18/23 19:33 BP 117/96 H 04/18/23 19:33 Pulse Ox 91 L 04/18/23 19:33 O2 Del Method Room Air, Nasal C annula 04/18/23 19:33 O2 Flow Rate 2 04/18/23 19:33 BMI result Body Mass Index 16.7 VITAL SIGNS: Reviewed. GENERAL: Well developed, well nourished, in no acute distress. HEAD: Normocephalic/atraumatic EYES: PERRLA, EOMI EARS: Ext canals without abnormality, TMs non-bulging and non-erythematous NOSE: Nares patent bilateral OROPHARYNX: no oral lesions noted, posterior pharynx clear NECK: Supple, no adenopathy LUNGS: Coarse breath sounds without obvious expiratory wheeze, no tachypnea. SpO2<88> on room air and when placed on 2 L of nasal cannula improved to 91% which is satisfactory given patient's underlying COPD. CARDIOVASCULAR: Regular rate and rhythm without noted murmurs, no JVD or lower extremity edema. ABDOMEN: Soft, non-tender, non-distended with bowel sounds. MUSCULOSKELETAL: No tenderness, deformities, or effusions noted on gross inspection. EXTREMITIES: No cyanosis, clubbing or edema. SKIN: Inspection of the skin reveals no rashes NEUROLOGIC: Alert and oriented x 4. Strength and sensation to light touch were grossly intact x 4. Course Course Course Narrative: RME: 48 year-old M w/ PMHx asthma, PE on Eliquis, substance abuse resenting to the ED c/o worsening SOB x yesterday/last night. Using updraft's w/o relief. +diffuse exp wheeze, satting 88-89% on RA EKG, labs, CXR, viral testing, ED bronch protocol ordered Full HPI, ROS and PE to be performed by primary ED provider. Medications Administered Discontinued Medications Generic Name Dose Route Start Last Admin Trade Name Freq PRN Reason Stop Dose Admin Albuterol/Ipratropium 3 ml 04/18/23 18:14 04/18/23 18:18 Albuterol/Iprat 2.5/0.5mg 3 Ml Ampul.Neb INHALE 04/18/23 18:15 3 ml ONCE ONE Administration Albuterol Sulfate 2.5 mg/ 0 mg 04/18/23 16:30 04/18/23 16:33 Albuterol/Ipratropium 3 ml INHALE 04/18/23 16:31 1 dose ONCE ONE Administration Methylprednisolone Sodium Succinate 125 mg 04/18/23 17:12 04/18/23 19:21 Methylprednisolone Sod Succ 125 Mg/2 Ml Vial IVPUSH 04/18/23 17:13 125 mg ONCE ONE Administration Medical Decision Making Medical Decision Making [facility] Narrative: 1710: 48-year-old male with history and clinical presentation, DDX: Asthma induced by drug use in other words pneumonitis, viral illness but low clinical suspicion for pneumonia. INTERVENTION: NEBULIZED TREATMENTS, STEROIDS, MAGNESIUM SULFATE. I reviewed all investigations and hematologic indices are negative for leukocytosis/left shift/thrombocytopenia/anemia. Coagulation studies are within normal limits. Chemistry indices do not demonstrate an JATINDER or electrolyte/liver enzyme derangements, high sensitivity troponin is undetectable and BNP is negligible. Viral testing negative for influenza/COVID-19. Chest x-ray negative for infiltrate or venous congestion otherwise my interpretation is in agreement with radiology's impression. 2140: Patient continues to require supplemental oxygen and will need admission for continued IV steroids. On ambulation patient is noted to drop to 87-88% on room air. 2142: I discussed case with inpatient hospitalist who accepts admission. Differential Diagnosis Differential Diagnoses: The differential diagnosis associated with the presentation includes Please see the discussion above Admission/Observation Consideration of admission/observation: Escalation of care including admission/observation considered Please see the discussion above Consult Healthcare Provider Management of the patient was discussed with: Hospitalist Please see the discussion above Lab Data MDM Lab Attestation statement: I reviewed the patient's lab results. Please see the discussion above 04/18/23 16:56 04/18/23 16:56 Labs: Lab Results 04/18/23 04/18/23 Range/Units 16:56 17:48 WBC 5.7 (4.8-10.8) X10*3/uL RBC 5.10 D (4.60-5.80) X10*6/uL Hgb 15.9 D (14.0-18.0) g/dl Hct 48.2 D (42.0-52.0) % MCV 94.5 (80.0-98.0) fL MCH 31.2 (27.0-33.0) pg MCHC 33.0 (31.0-36.0) g/dl RDW 12.6 (11.0-16.0) % Plt Count 286 D (160-400) X10*3/uL MPV 9.6 (9.4-12.4) fL Immature Gran % (Auto) 0.2 (0.0-0.4) % Neut % (Auto) 51.1 (45-73) % Lymph % (Auto) 38.3 (20-40) % [place] % (Auto) 6.4 (2-11) % Eos % (Auto) 3.5 (0-4) % Baso % (Auto) 0.5 (0-2) % Lymph # (Auto) 2.2 (1.2-4.9) X10*3/uL [place] # (Auto) 0.4 (0.1-1.2) X10*3/uL Eos # (Auto) 0.2 (0.0-0.4) X10*3/uL Baso # (Auto) 0.0 (0.0-0.2) X10*3/uL Abs Immat Gran (auto) 0.01 (0.00-0.03) X10*3/uL Absolute Neuts (auto) 2.9 (2.0-8.3) x10*3/uL Absolute Nucleated RBC 0.000 (0.0-0.012) X10*3/uL Nucleated RBC % (auto) 0.0 (0.0-0.2) /100WBC PT 11.3 (11.1-13.3) SEC INR 0.9 (0.9-1.1) VBG pH 7.37 (7.32-7.43) VBG pCO2 57 mmHg VBG pO2 34 mmHg VBG HCO3 33 H (22-26) mmol/L VBG O2 Saturation 47.0 % VBG Base Excess 6.6 mmol/L Sodium 142 (135-145) mmol/L Potassium 4.3 (3.3-5.1) mmol/L Chloride 101 (96-108) mmol/L Carbon Dioxide 31 H (22-29) mmol/L Anion Gap 14 (12-20) BUN 14 (9-16) mg/dL Creatinine 0.97 (0.5-1.4) mg/dL Estim Creat Clear Calc 72.9 Estimated GFR > 60 Random Glucose 111 (60-115) mg/dL Calcium 10.1 (8.4-10.2) mg/dL Total Bilirubin 0.4 (0.0-1.0) mg/dL Direct Bilirubin 0.1 (0.0-0.5) mg/dL AST 24 (5-37) U/L ALT 19 (0-40) U/L Alkaline Phosphatase 68 (39-117) U/L Troponin I High Sens < 2.7 (<3.5-35.0) ng/L B-Natriuretic Peptide 18 (<100) pg/mL Total Protein 7.5 (6.5-8.0) g/dL Albumin 4.5 (3.5-5.0) g/dL COVID-19 (ELI) Negative (Negative) COVID-19 Clin Com See Note Influenza Type A (RYAN) Negative (Negative) Influenza Type B (RYAN) Negative (Negative) Influenza A & B Note See Note Independent Interpretation I performed an independent interpretation of an: EKG Interpretation: Normal sinus rhythm, HR-93, no STEMI, AK/QRS/QTC is within normal limits Radiology Impression Discussion of test interpretation with radiology: I have reviewed the radiologist's reading. Radiologist Impression: Please see the discussion above External Record Review External record reviewed: Outpatient record, Prior outpatient labs and Prior outpatient radiology Chronic Conditions Patient?s care impacted by: Other Asthma, polysubstance use Social Determinants Patient?s care significantly limited by Social Determinants of Health including: Alcoholism and drug addiction in family Critical Care Time Critical Care Time Critical Care Time: Yes Total Critical Care Time: 60 Attestation: I personally attest to this time spent taking care of the patient. Discharge Plan Discharge Clinical Impression: Asthma exacerbation, Hypoxia Patient Disposition: Admitted As Inpatient Instructions: Asthma (ED) Prescriptions: New prednisone 50 mg tablet 50 mg PO DAILY 4 Days Qty: 4 0RF No Action (DME) nebulizers Misc See Rx Instructions .Route Qty: 1 0RF Rx Instructions: Use every 4 hours as needed for SOB, wheezing Xolair 150 mg recon soln 225 mg subcut Q2W 28 Days Qty: 3 6RF Trelegy Ellipta 200-62.5-25 mcg blister with device 1 inh inhalation DAILY 30 Days Qty: 1 6RF montelukast 10 mg tablet 10 mg PO BEDTIME Qty: 30 3RF prednisone 10 mg tablet 10 mg PO DIRECTED Qty: 70 0RF Rx Instructions: Take four tabs daily for 7 days, then go down by 1 tab every 7 days. azithromycin 250 mg tablet See Rx Instructions PO .COMPLEX Qty: 6 0RF Rx Instructions: For 250 mg dose pack: take 500 mg today (day 1), then 250 mg for 4 days (days 2-5) PO Eliquis 5 mg tablet 5 mg PO BID Qty: 120 3RF fluticasone propionate [Allergy Relief (fluticasone)] 50 mcg/actuation spray,suspension 2 spray intranasal DAILY Qty: 16 0RF Rx Instructions: administer into each nostril Future refills considered AFTER blood work completed hydroxyzine HCl 25 mg tablet 25 mg PO BID PRN (Reason: anxiety) 30 Days Qty: 60 0RF Rx Instructions: Future refills considered AFTER blood work completed albuterol sulfate [Ventolin HFA] 90 mcg/actuation HFA aerosol inhaler 2 puff PO Q4-6H PRN (Reason: for wheezing) Qty: 18 2RF albuterol sulfate 2.5 mg /3 mL (0.083 %) solution for nebulization 2.5 mg inhalation Q4-6H PRN (Reason: for wheezing) Qty: 75 3RF polyethylene glycol 3350 [Gavilax] 17 gram/dose powder 17 g PO DAILY sennosides-docusate sodium [Senexon-S] 8.6-50 mg tablet 1 tab-cap PO BID Referrals: Kishor Barrett, [facility] [Primary Care Provider] -
--- NOTE | 2023-04-18 16:16 | ECG_ITS ---
Test Reason : SOB Blood Pressure : / mmHG Vent. Rate : 093 BPM Atrial Rate : 093 BPM P-R Int : 138 ms QRS Dur : 078 ms QT Int : 362 ms P-R-T Axes : 090 256 078 degrees QTc Int : 450 ms Normal sinus rhythm Right atrial enlargement Right superior axis deviation Pulmonary disease pattern Abnormal ECG When compared with ECG of 24-SEP-2020 20:16, QRS axis Shifted left Referred By: Bhavana Guevara Electronically Signed By:GENEVIEVE VANCE MD
[2023-04-18] MEDS: Albuterol Sulfate 2.5 MG, Albuterol/Iprat 2.5/0.5MG 3 ML 3 ML INHALE (16:33)
[2023-04-18 17:03] LABS: MANUAL DIFF FLAG NO
[2023-04-18 17:07] LABS: Basophils Percent Auto 0.5 % (0-2); Eosinophils Absolute Auto 0.2 X10*3/uL (0.0-0.4); Eosinophils Percent Auto 3.5 % (0-4); Hematocrit 48.2 % (42.0-52.0); Hemoglobin 15.9 g/dl (14.0-18.0); Imm Gran Abs Auto 0.01 X10*3/uL (0.00-0.03); Imm Gran Pct Auto 0.2 % (0.0-0.4); Lymphocytes Absolute Auto 2.2 X10*3/uL (1.2-4.9); Lymphocytes Percent Auto 38.3 % (20-40); Mean Corpuscular Hemoglobin 31.2 pg (27.0-33.0); Mean Corpuscular Volume 94.5 fL (80.0-98.0); Mean Platelet Volume 9.6 fL (9.4-12.4); Monocytes Absolute Auto 0.4 X10*3/uL (0.1-1.2); Monocytes Percent Auto 6.4 % (2-11); Neutrophils Absolute Auto 2.9 x10*3/uL (2.0-8.3); Neutrophils Percent Auto 51.1 % (45-73); Platelet Count 286 X10*3/uL (160-400); Red Cell Distribution Width 12.6 % (11.0-16.0); White Blood Count 5.7 X10*3/uL (4.8-10.8)
[2023-04-18 17:10] LABS: INTERNATIONAL NORM RATIO 0.9 (0.9-1.1); Prothrombin Time 11.3 SEC (11.1-13.3)
[2023-04-18 17:19] LABS: Alanine Aminotransferase 19 U/L (0-40); Albumin Level 4.5 g/dL (3.5-5.0); Alkaline Phosphatase 68 U/L (39-117); Anion Gap 14 (12-20); Aspartate Amino Transferase 24 U/L (5-37); Bilirubin Direct 0.1 mg/dL (0.0-0.5); Bilirubin Total 0.4 mg/dL (0.0-1.0); Blood Urea Nitrogen 14 mg/dL (9-16); Calcium 10.1 mg/dL (8.4-10.2); Carbon Dioxide 31 mmol/L (22-29); Chloride 101 mmol/L (96-108); Creatinine Clr Calc Pharmacy 72.9; Estimated Glomerular Filt Rate > 60; Glucose Random 111 mg/dL (60-115); Potassium 4.3 mmol/L (3.3-5.1); Sodium 142 mmol/L (135-145); Total Protein 7.5 g/dL (6.5-8.0)
[2023-04-18 17:21] LABS: COVID-19 Test Negative (Negative); IDNOW Serial# 152EDE1D
[2023-04-18 17:23] LABS: IDNOW Serial# 9DB6401D; Influenza A Negative (Negative); Influenza B2 Negative (Negative)
[2023-04-18 17:24] LABS: B Type Natriuretic Peptide 18 pg/mL (<100)
[2023-04-18 17:27] LABS: Troponin-I High Sensitivity < 2.7 ng/L (<3.5-35.0)
[2023-04-18 17:55] LABS: VBG Base Excess 6.6 mmol/L; VBG HCO3 33 mmol/L (22-26); VBG pCO2 57 mmHg; VBG pH 7.37 (7.32-7.43); VBG pO2 34 mmHg
[2023-04-18 17:56] LABS: Venous Blood Gas Refer to POC result
[2023-04-18] MEDS: Albuterol/Iprat 2.5/0.5MG 3 ML AMPUL.NEB INHALE (18:18)
[2023-04-18] MEDS: methylPREDNISolone Sod Succ 125 MG/2 ML VIAL IVPUSH (19:21)
--- NOTE | 2023-04-18 19:27 | PC.NURSE ---
Assumed care of pt 1900. PT alert and oriented. crankshaft balancerPadmini Buenrostro conducted ambulation trial. o2 sat during ambulation 90-92%. Informed provider. Placed IV line in left AC. Medications administered as per JUN. Safety precautions in place, call flores within reach. Plan of care ongoing.
--- NOTE | 2023-04-18 19:30 | MHC.EDTECH ---
PT was walked with SPO2 monitor on at this time. PT saturation was between 89%-92%. PT levels dropped down only one time to 88% while he was talking.
[2023-04-18] MEDS: Magnesium Sulfate/H2O 2 GM/50 ML PIGGYBACK IV (21:55)
--- NOTE | 2023-04-18 22:20 | PHA.MEDREC ---
Pharmacy Consult ? Medication Reconciliation Pharmacy has completed the medication reconciliation. Patient reported medications. Patient reported he has not been taking montelukast or chantix. Patient get methadone from [facility]. Attempted to contact for verification without success, RN will need to follow-up in the morning to verify patient's methadone dose. Mireya Childress, MartinaD
[2023-04-18] MEDS: Apixaban 5 MG TABLET PO (23:02)
--- NOTE | 2023-04-18 23:38 | PM.IMHP ---
History of Present Illness Date of Service: 04/18/23 Attending physician on admission: Ember Wagner Chief Complaint: Shortness of breath Shiraz Cruz is a 48 years old man with past medical history significant for asthma, chronic respiratory failure -on home O2 as needed and pulmonary emboli on Eliquis presents to the emergency department complaining of shortness of breath associated with nonproductive cough over the last several days. He denies any associated symptoms such as headache, fever or chills. He denies chest pain, palpitations or dizziness. He also denies any acute gastrointestinal symptom. Patient denied the use of illicit drugs recently. however, according to ED notes patient reported is sniffing heroin (last use 2/3 days ago). He also denied tobacco smoking. Patient stated that he has been using breathing treatments at home without significant improvement of his symptoms. He is currently using Trelegy and Eliquis. In the ED, He was found to have stable vital signs. He currently is requiring 2 liters/minutes of supplemental oxygen which is his baseline. Blood workup including CBC and CMP is basically unremarkable. Venous blood gas showed note respiratory acidosis. Viral testing is negative. CXR showed no acute cardiopulmonary disease. it did show chronic burst suppression of the lungs. ED tx: albuterol and DuoNeb nebs x2, magnesium 2 mg IV x1 and Solu-Medrol 125 mg IV x1. Patient has improved is slightly but continues with shortness of breath. Review of Systems Review of Systems: All 12 systems were reviewed and normal except as noted in HPI. [facility] Medical History Moderate persistent asthma with exacerbation Opiate abuse, episodic Left against medical advice Lung problems from crack cocaine Chronic lung disease Asthma Pulmonary emboli Family History Other Family history non-contributory Social History Household Members: Spouse Housing: House Do you presently have visiting nurse or other home services: No Unable to assess alcohol history related to: Unknown Alcohol intake: never Patient Tobacco Use Status: Current someday Tobacco user Tobacco use type: Cigarette Cigarettes Per Day: 2 Smoked in Last 30 Days: No e-Cigarette/Vaping Use: Never Used Second Hand Smoke Exposure: No Use of substances other than those prescribed or required for medical reasons: No Advance Directives: No Advance Directives Information Provided: No service: No Current occupational status: unemployed Cognitive needs: No Hearing needs: No Vision needs: No Meds Allergies Allergy/AdvReac Type Severity Reaction Status Date / Time walnut Allergy Unknown SWELLING Verified 12/13/22 10:20 buprenorphine [From Suboxone] Allergy swelling Verified 12/13/22 10:20 in his hands and rash naloxone [From Suboxone] Allergy swelling Verified 12/13/22 10:20 in his hands and rash NSAIDS/ASA Allergy Unknown unknown Uncoded 08/29/22 09:32 walnuts Allergy Unknown anaphylaxis Uncoded 08/29/22 09:32 Active Medications: Current Medications Acetaminophen (Acetaminophen 325 Mg Tablet) 975 mg PO Q6H PRN PRN Reason: Pain, Mild (Pain Scale 1-3) Albuterol Sulfate (Albuterol Sulfate 90 Mcg 8 Gm Inhaler) 4 puff INHALE RQ4H WHILE AWAKE [facility] Apixaban (Apixaban 5 Mg Tablet) 5 mg PO BID EMMA Last Admin: 04/18/23 23:02 Dose: 5 mg Methylprednisolone Sodium Succinate (Methylprednisolone Sod Succ 125 Mg/2 Ml Vial) 40 mg IVPUSH DAILY [facility] Sodium Chloride (0.9 % Sodium Chloride Flush 3 Ml Syringe) 3 ml IVFLUSH QSHIFT [facility] Other home medications: Elquis 5 m PO bid Home Medications Medication Instructions Recorded Confirmed Last Taken Type sennosides 8.6 mg-docusate sodium 1 tab-cap PO BID PRN Constipation 08/29/22 04/18/23 Unknown History 50 mg tablet (Senexon-S) fluticasone propionate 50 2 spray intranasal DAILY PRN 04/18/23 04/18/23 Unknown History mcg/actuation nasal Allergy Symptoms spray,suspension (Allergy Relief (fluticasone)) methadone 10 mg/mL oral mg PO DAILY 04/18/23 Unknown History concentrate (Methadose) fluticasone fur. 200 mcg-umeclid 1 ea inhalation DAILY 04/19/23 04/19/23 Unknown History 62.5 mcg-vilant 25 mcg inhalat.powder (Trelegy Ellipta) Physical Exam Vital Signs and Narrative: Vital Signs: Last Vital Signs Temp 99.0 F 04/18/23 21:51 Pulse 82 04/18/23 21:51 Resp 20 01/10/24 21:51 BP 108/73 04/18/23 21:51 Pulse Ox 90 L 04/18/23 21:51 O2 Del Method Room Air, Nasal C annula 04/18/23 21:51 O2 Flow Rate 2 04/18/23 21:51 BMI result Body Mass Index 16.7 Const: Other: Constitutional - Awake and Alert, No apparent distress HEENT - Atraumatic head, normocephalic. Cardiovascular - RRR. Respiratory - No respiratory distress. No use of accessory muscles. Tachypnea. Bilateral end expiratory wheezes. Gastrointestinal - NT / ND; +BS; No rebound or guarding Extremities - no calf tenderness bilaterally, no swelling Musculoskeletal - Normal inspection, normal ROM Skin - Warm/Dry Neurological - Alert & oriented x3. Psychological - Appropriate affect Results Labs 04/18/23 16:56 04/18/23 16:56 Labs: Laboratory Results - last 24 hr 04/18/23 04/18/23 16:56 17:48 MCV 94.5 MCH 31.2 MCHC 33.0 RDW 12.6 Plt Count 286 D MPV 9.6 Immature Gran % (Auto) 0.2 Neut % (Auto) 51.1 Lymph % (Auto) 38.3 [place] % (Auto) 6.4 Eos % (Auto) 3.5 Baso % (Auto) 0.5 Lymph # (Auto) 2.2 [place] # (Auto) 0.4 Eos # (Auto) 0.2 Baso # (Auto) 0.0 Abs Immat Gran (auto) 0.01 Absolute Neuts (auto) 2.9 Absolute Nucleated RBC 0.000 Nucleated RBC % (auto) 0.0 PT 11.3 INR 0.9 VBG pH 7.37 VBG pCO2 57 VBG pO2 34 VBG HCO3 33 H VBG O2 Saturation 47.0 VBG Base Excess 6.6 Anion Gap 14 Estim Creat Clear Calc 72.9 Estimated GFR > 60 Random Glucose 111 Calcium 10.1 Total Bilirubin 0.4 Direct Bilirubin 0.1 AST 24 ALT 19 Alkaline Phosphatase 68 B-Natriuretic Peptide 18 Total Protein 7.5 Albumin 4.5 COVID-19 (ELI) Negative COVID-19 Clin Com See Note Influenza Type A (RYAN) Negative Influenza Type B (RYAN) Negative Influenza A & B Note See Note Imaging Radiologist's Impressions: Impressions Chest X-Ray 04/18/23 17:22 IMPRESSION: 1. No radiographically evident acute pulmonary abnormalities. 2. Chronic hyperexpansion of the lungs. 3. Apparent poorly defined hazy density seen on the PA view in the right lung base this favored to represent overlapping ribs, similar to exam from 2021. However, if symptoms persist follow-up with slight oblique images may further assess. No additional focal consolidative process. Assessment and Plan (1) Chronic respiratory failure with hypoxia: Status: Acute (2) Asthma exacerbation: Status: Acute Plan Shiraz Cruz is a 48 years old man with past medical history significant for asthma and chronic respiratory failure admitted with: Acute asthma exacerbation. admits to hospitalist service. Telemetry. Pulse oximetry. Continue supplemental oxygen to keep oxygen saturation above 90%. Continue bronchodilator therapy. Continue IV steroids. Continue Trelegy. Patient will need to consider to stop inhaling illegal substances. History of pulmonary emboli. Continue Eliquis. Quality Stroke Does the patient have a stroke diagnosis?: No VTE Prior VTE?: Yes VTE Risk Level:: Medical - moderate - high VTE Device Contraindication: Treatment Not Indicated VTE Drug Contraindication: N/A - Med Ordered
[2023-04-19] VITALS (12 sets, daily range): BP systolic 98–124; BP diastolic 52–85; PULSE 68–96; RESP 12–18; TEMP 36.4–37.1; O2SAT 90–97
[2023-04-19] MEDS: 0.9 % Sodium Chloride Flush 3 ML SYRINGE IVFLUSH ×2 (03:54→21:36)
[2023-04-19 06:06] LABS: MANUAL DIFF FLAG NO
[2023-04-19 06:26] LABS: Alanine Aminotransferase 19 U/L (0-40); Albumin Level 4.2 g/dL (3.5-5.0); Alkaline Phosphatase 60 U/L (39-117); Anion Gap 13 (12-20); Aspartate Amino Transferase 18 U/L (5-37); Bilirubin Total 0.4 mg/dL (0.0-1.0); Blood Urea Nitrogen 21 mg/dL (9-16); Calcium 9.7 mg/dL (8.4-10.2); Carbon Dioxide 26 mmol/L (22-29); Chloride 104 mmol/L (96-108); Creatinine Clr Calc Pharmacy 82.2; Estimated Glomerular Filt Rate > 60; Glucose Random 137 mg/dL (60-115); Potassium 4.9 mmol/L (3.3-5.1); Sodium 138 mmol/L (135-145); Total Protein 6.9 g/dL (6.5-8.0)
[2023-04-19 06:28] LABS: Basophils Percent Auto 0.2 % (0-2); Hematocrit 43.5 % (42.0-52.0); Hemoglobin 14.4 g/dl (14.0-18.0); Imm Gran Abs Auto 0.01 X10*3/uL (0.00-0.03); Imm Gran Pct Auto 0.2 % (0.0-0.4); Lymphocytes Absolute Auto 0.7 X10*3/uL (1.2-4.9); Lymphocytes Percent Auto 12.6 % (20-40); Mean Corpuscular HGB Conc 33.1 g/dl (31.0-36.0); Mean Corpuscular Hemoglobin 31.8 pg (27.0-33.0); Mean Platelet Volume 10.4 fL (9.4-12.4); Monocytes Absolute Auto 0.1 X10*3/uL (0.1-1.2); Monocytes Percent Auto 1.7 % (2-11); Neutrophils Percent Auto 85.3 % (45-73); Platelet Count 265 X10*3/uL (160-400); Red Blood Count 4.53 X10*6/uL (4.60-5.80); Red Cell Distribution Width 12.6 % (11.0-16.0); White Blood Count 5.9 X10*3/uL (4.8-10.8)
--- NOTE | 2023-04-19 06:57 | PC.NURSE ---
Report and handoff given to nikki David shift RN.
--- NOTE | 2023-04-19 06:58 | PC.NURSE ---
Notified hospitalist, Dr. Raji Wagner, of pt coughing fits that has occurred x2 last 5-10 mins. awaiting new orders.
[2023-04-19] MEDS: Fluticasone/Umeclidinium/Vilanterol 200/62.5/25 BLST.W.DEV 1 PUFF INHALE (07:42)
[2023-04-19] MEDS: Albuterol Sulfate 90 MCG 8 GM INHALER 4 PUFF INHALE (07:42)
--- NOTE | 2023-04-19 09:39 | MHC.CM.PN ---
Addendum entered by Amy Howe 04/19/23 09:44: No IMM completed or needed for this pt. this is an error. Original Note: IMM 04/19/23, Pt lives with a friend, he has home O2, he does not have any other med equipment, and no home health services, he is independent with ADLs. He just started receiving SNAP benefits, and said that this is helpful. He goes to [facility], [address] [place] [address] for Methadone. HCP discussed, form completed and added to chart. He will need assistance with transportation home upon DC. CM to follow and assist with DC planning.
[2023-04-19] MEDS: methylPREDNISolone Sod Succ 125 MG/2 ML VIAL 40 MG IVPUSH (09:53)
[2023-04-19] MEDS: Apixaban 5 MG TABLET PO ×2 (09:54→21:32)
--- NOTE | 2023-04-19 10:10 | PC.NURSE ---
patient methadone clinic contacted, patient last dosed with take home bottle on 04/17/2022 given 48 mg methadone. verified with clinical unit coordinator gwen
--- NOTE | 2023-04-19 10:12 | MHC.RECOVRN ---
Consult Received R/T OUD, on this patient, met with him in bed 16 ER. Patient denies any active withdrawal symptoms and appears to be consistent with that report. States he receives 48 mg of methadone and is established at the [facility], discussed with his Primary RN Joann who will verify this. mail processing clerk Leigh Lang will follow up with patient.
--- NOTE | 2023-04-19 10:23 | HE.PHANOTE ---
Re: Methadone Last dose verified at [facility] for Methadone 48 mg daily in take home bottle. Per ALFONSO David, pt reports last taking methadone bottle dose on 04/18/23.
[2023-04-19] MEDS: Albuterol/Iprat 2.5/0.5MG 3 ML AMPUL.NEB INHALE ×3 (10:59→20:45)
[2023-04-19] MEDS: methADONE HCl 20 MG/2 ML ORAL.CONC 48 MG PO (11:51)
[2023-04-19 12:54] LABS: Adenovirus PCR Not Detected (Not Detect.); Bordetella parapertussis PCR Not Detected (Not Detect.); Bordetella pertussis PCR Not Detected (Not Detect.); Chlamydia pneumoniae PCR Not Detected (Not Detect.); Coronavirus 229E PCR Not Detected (Not Detect.); Coronavirus HKU1 PCR Not Detected (Not Detect.); Coronavirus NL63 PCR Not Detected (Not Detect.); Coronavirus OC43 PCR Not Detected (Not Detect.); Human metapneumovirus PCR Not Detected (Not Detect.); Influenza A PCR Not Detected (Not Detect.); Influenza B PCR Not Detected (Not Detect.); Mycoplasma pneumoniae PCR Not Detected (Not Detect.); Parainfluenza 1 PCR Not Detected (Not Detect.); Parainfluenza 2 PCR Not Detected (Not Detect.); Parainfluenza 3 PCR Not Detected (Not Detect.); Parainfluenza 4 PCR Not Detected (Not Detect.); RSV PCR Not Detected (Not Detect.); Rhino/Enterovirus PCR Not Detected (Not Detect.); SARS-CoV-2 PCR Not Detected (Not Detect.)
[2023-04-19 13:43] LABS: Amphetamine Screen Urine Not Detected (Not Detect); Barbiturates, Urine Not Detected (Not Detect); Benzodiazepines Screen Urine Not Detected (Not Detect); Cannabinoid Screen Urine Not Detected (Not Detect); Cocaine Screen Urine POSITIVE (Not Detect); Fentanyl, urine POSITIVE (Not Detect); Opiate Screen Urine POSITIVE (Not Detect); Phencyclidine Screen Urine Not Detected (Not Detect)
[2023-04-19 13:44] LABS: Appearance Urine Clear; Color Urine Yellow; Glucose Urine UA Negative (Negative); Leukocyte Esterase Urine Negative (Negative); Nitrite Urine Negative (Negative); Specific Gravity - Urine >= 1.030 (1.005-1.025); Urine Blood Negative (Negative); Urine Ketones Negative (Negative); Urine Protein Negative (Neg-Trace)
--- NOTE | 2023-04-19 13:49 | HO.PM.IMPN ---
Subjective Subjective Date of Service: 04/19/23 Interval History: wheezing coughing Review of Systems Review of Systems: Yes all other systems are reviewed and are negative Physical Exam Vital Signs: Vital Signs: Last Vital Signs Temp 98.8 F 04/19/23 12:44 Pulse 79 04/19/23 12:44 Resp 18 04/19/23 12:44 BP 112/73 04/19/23 12:44 Pulse Ox 92 04/19/23 12:44 O2 Del Method Nasal Cannula 04/19/23 12:44 O2 Flow Rate 3 04/19/23 12:44 BMI result Body Mass Index 16.7 Gen: in no acute distress HEENT: sclera anicteric, moist mucus membranes Neck: supple Lungs: bilateral exp wheeze Heart: regular rate and rhythm, no murmurs Abd: soft, non-tender, non-distended Ext: no edema Skin: warm/well-perfused Neuro: alert and oriented x3, no focal findings Psych: appropriate affect Objective Data Active Medications Acetaminophen (Acetaminophen 325 Mg Tablet) 975 mg PO Q6H PRN PRN Reason: Pain, Mild (Pain Scale 1-3) Albuterol Sulfate (Albuterol Sulfate (0.083%) 2.5 Mg/3 Ml Vial.Neb) 2.5 mg INHALE Q2H PRN PRN Reason: Shortness of Breath/Wheezing Albuterol/Ipratropium (Albuterol/Iprat 2.5/0.5mg 3 Ml Ampul.Neb) 3 ml INHALE RQ4H WHILE AWAKE [facility] Last Admin: 04/19/23 10:59 Dose: 3 ml Documented By: RADHA Apixaban (Apixaban 5 Mg Tablet) 5 mg PO BID [facility] Last Admin: 04/19/23 09:54 Dose: 5 mg Documented By: STEVEN Fluticasone Propionate (Fluticasone Propionate Nasal 16 Gm [place]) 2 spray NOSTRIL-B DAILY PRN PRN Reason: Allergy Symptoms Fluticasone/Umeclidinium/Vilanterol (Fluticasone/Umeclidinium/Vilanterol 200/62.5/25 Blst.W.Dev) 1 puff INHALE DAILY [facility] Last Admin: 04/19/23 07:42 Dose: 1 puff Documented By: RADHA Guaifenesin (Guaifenesin 200 Mg/10 Ml 10 Ml Liquid) 10 ml PO Q6H PRN PRN Reason: Cough Hydroxyzine HCl (Hydroxyzine Hcl 25 Mg Tablet) 25 mg PO BID PRN PRN Reason: anxiety Methadone HCl (Methadone Hcl 20 Mg/2 Ml Oral.Conc) 48 mg PO DAILY [facility] Last Admin: 04/19/23 11:51 Dose: 48 mg Documented By: STEVEN Methylprednisolone Sodium Succinate (Methylprednisolone Sod Succ 125 Mg/2 Ml Vial) 40 mg IVPUSH DAILY [facility] Last Admin: 04/19/23 09:53 Dose: 40 mg Documented By: STEVEN Senna/Docusate Sodium (Sennosides/Docusate Sodium Tablet) 1 tab PO BID PRN PRN Reason: Constipation Sodium Chloride (0.9 % Sodium Chloride Flush 3 Ml Syringe) 3 ml IVFLUSH QSHIFT [facility] Last Admin: 04/19/23 07:33 Dose: Not Given Documented By: STEVEN Non-Admin Reason: Patient Asleep Labs 04/19/23 05:47 04/19/23 05:48 Labs: Laboratory Results - last 24 hr 04/18/23 04/18/23 04/19/23 16:56 17:48 05:47 MCV 94.5 96.0 MCH 31.2 31.8 MCHC 33.0 33.1 RDW 12.6 12.6 Plt Count 286 D 265 MPV 9.6 10.4 Immature Gran % (Auto) 0.2 0.2 Neut % (Auto) 51.1 85.3 H Lymph % (Auto) 38.3 12.6 L [place] % (Auto) 6.4 1.7 L Eos % (Auto) 3.5 0.0 Baso % (Auto) 0.5 0.2 Lymph # (Auto) 2.2 0.7 L [place] # (Auto) 0.4 0.1 Eos # (Auto) 0.2 0.0 Baso # (Auto) 0.0 0.0 Abs Immat Gran (auto) 0.01 0.01 Absolute Neuts (auto) 2.9 5.0 Absolute Nucleated RBC 0.000 0.000 Nucleated RBC % (auto) 0.0 0.0 PT 11.3 INR 0.9 VBG pH 7.37 VBG pCO2 57 VBG pO2 34 VBG HCO3 33 H VBG O2 Saturation 47.0 VBG Base Excess 6.6 Anion Gap 14 Estim Creat Clear Calc 72.9 Estimated GFR > 60 Random Glucose 111 Calcium 10.1 Total Bilirubin 0.4 Direct Bilirubin 0.1 AST 24 ALT 19 Alkaline Phosphatase 68 B-Natriuretic Peptide 18 Total Protein 7.5 Albumin 4.5 Urine Color Urine Appearance Urine pH Ur Specific Romeo Urine Protein Urine Glucose (UA) Urine Ketones Urine Blood Urine Nitrite Ur Leukocyte Esterase Urine Opiates Screen Urine Fentanyl Screen Ur Barbiturates Screen Ur Phencyclidine Scrn Ur Amphetamines Screen U Benzodiazepines Scrn Urine Cocaine Screen U Marijuana (THC) Screen Respiratory Panel Gillis Adenovirus (Rapid PCR) B.pert (TEM-PCR) B.parapertussis DNA PCR C. pneumoniae DNA (PCR) Coronavirus OC43 (PCR) Coronavirus HKU1 (PCR) Coronavirus 229E (PCR) COVID-19 (ELI) Negative COVID-19 Clin Com See Note Coronavirus NL63 (PCR) Human Metapneumovir PCR Influenza Type A (RYAN) Negative Influenza A (RT-PCR) Influenza Type B (RYAN) Negative Influenza B (RT-PCR) Influenza A & B Note See Note M. pneumoniae (PCR) Parainfluenza 1 (PCR) Parainfluenza 2 (PCR) Parainfluenza 3 (PCR) Parainfluenza 4 (PCR) RSV (PCR) Entero/Rhino (PCR) SARS-CoV-2 RNA (RT-PCR) 04/19/23 04/19/23 04/19/23 05:48 10:03 13:27 MCV MCH MCHC RDW Plt Count MPV Immature Gran % (Auto) Neut % (Auto) Lymph % (Auto) [place] % (Auto) Eos % (Auto) Baso % (Auto) Lymph # (Auto) Bre[place] # (Auto) Eos # (Auto) Baso # (Auto) Abs Immat Gran (auto) Absolute Neuts (auto) Absolute Nucleated RBC Nucleated RBC % (auto) PT INR VBG pH VBG pCO2 VBG pO2 VBG HCO3 VBG O2 Saturation VBG Base Excess Anion Gap 13 Estim Creat Clear Calc 82.2 Estimated GFR > 60 Random Glucose 137 H Calcium 9.7 Total Bilirubin 0.4 Direct Bilirubin AST 18 ALT 19 Alkaline Phosphatase 60 B-Natriuretic Peptide Total Protein 6.9 Albumin 4.2 Urine Color Yellow Urine Appearance Clear Urine pH 7.0 Ur Specific Romeo >= 1.030 H Urine Protein Negative Urine Glucose (UA) Negative Urine Ketones Negative Urine Blood Negative Urine Nitrite Negative Ur Leukocyte Esterase Negative Urine Opiates Screen POSITIVE H Urine Fentanyl Screen POSITIVE H Ur Barbiturates Screen Not Detected Ur Phencyclidine Scrn Not Detected Ur Amphetamines Screen Not Detected U Benzodiazepines Scrn Not Detected Urine Cocaine Screen POSITIVE H U Marijuana (THC) Screen Not Detected Respiratory Panel Gillis See Note Adenovirus (Rapid PCR) Not Detected B.pert (TEM-PCR) Not Detected B.parapertussis DNA PCR Not Detected C. pneumoniae DNA (PCR) Not Detected Coronavirus OC43 (PCR) Not Detected Coronavirus HKU1 (PCR) Not Detected Coronavirus 229E (PCR) Not Detected COVID-19 (ELI) COVID-19 Clin Com Coronavirus NL63 (PCR) Not Detected Human Metapneumovir PCR Not Detected Influenza Type A (RYAN) Influenza A (RT-PCR) Not Detected Influenza Type B (RYAN) Influenza B (RT-PCR) Not Detected Influenza A & B Note M. pneumoniae (PCR) Not Detected Parainfluenza 1 (PCR) Not Detected Parainfluenza 2 (PCR) Not Detected Parainfluenza 3 (PCR) Not Detected Parainfluenza 4 (PCR) Not Detected RSV (PCR) Not Detected Entero/Rhino (PCR) Not Detected SARS-CoV-2 RNA (RT-PCR) Not Detected Assessment and Plan (1) Hypoxia: Status: Acute (2) Asthma exacerbation: Status: Acute Plan d2 for 48yo M with allergic asthma on omalizumab, chronic hypoxia on 2L O2, and polysubstance abuse on methadone admitted due to asthma exac acute asthma exac likely due to inhalation drug use - continue steroids, bronchodilators, home controller inhalers polysubstance abuse - confirmed methadose dose, continue; Addiction Med consult; screen HBV/HCV/HIV hx PE - apixaban VTE ppx - apixaban dispo - eventual home In my clinical judgment, the patient requires continued inpatient hospitalization for the following reasons: wheezing, hypoxia Total time managing care of this patient today: 35 minutes. Quality Stroke Does the patient have a stroke diagnosis?: No VTE Prior VTE?: Yes VTE Risk Level:: Medical - moderate - high VTE Device Contraindication: Treatment Not Indicated VTE Drug Contraindication: N/A - Med Ordered
[2023-04-20 04:00] VITALS: BP 105/80; PULSE 71; RESP 18; TEMP 36.6; O2SAT 98
[2023-04-20 04:20] VITALS: BMI 17.0
[2023-04-20 07:35] VITALS: BP 106/68; PULSE 81; RESP 20; TEMP 36.4; O2SAT 91
[2023-04-20] MEDS: guaiFENesin 200 MG/10 ML 10 ML LIQUID PO (07:51)
[2023-04-20] MEDS: methADONE HCl 20 MG/2 ML ORAL.CONC 48 MG PO (07:52)
[2023-04-20] MEDS: 0.9 % Sodium Chloride Flush 3 ML SYRINGE IVFLUSH (07:52)
[2023-04-20] MEDS: Apixaban 5 MG TABLET PO (07:52)
[2023-04-20] MEDS: methylPREDNISolone Sod Succ 125 MG/2 ML VIAL 40 MG IVPUSH (07:52)
[2023-04-20 07:55] LABS: Hematocrit 43.7 % (42.0-52.0); Hemoglobin 14.3 g/dl (14.0-18.0); Mean Corpuscular HGB Conc 32.7 g/dl (31.0-36.0); Mean Corpuscular Hemoglobin 31.4 pg (27.0-33.0); Mean Corpuscular Volume 95.8 fL (80.0-98.0); Mean Platelet Volume 10.2 fL (9.4-12.4); Platelet Count 289 X10*3/uL (160-400); Red Blood Count 4.56 X10*6/uL (4.60-5.80); Red Cell Distribution Width 12.8 % (11.0-16.0); White Blood Count 10.4 X10*3/uL (4.8-10.8)
[2023-04-20 08:13] VITALS: PULSE 102; RESP 20; O2SAT 95
[2023-04-20] MEDS: Albuterol/Iprat 2.5/0.5MG 3 ML AMPUL.NEB INHALE (08:13)
[2023-04-20 08:29] LABS: HBS Num1 0.57 mIU/mL (0-7.99); HBc Num1 0.12 S/CO (0.00-0.79); HBsAGNum1 0.26 S/CO (0.00-0.99); HIV AB/AG Nonreactive (Nonreactive); HIV Num 1 0.05 S/CO (0.00-0.99); Hepatitis B Core Antibody Nonreactive (Nonreactive); Hepatitis B Surface Antigen Negative (Negative); ~Hepatitis B Surface Antibody NONREACTIVE (Nonreactive); ~Hepatitis C Antibody Nonreactive (Nonreactive)
[2023-04-20] MEDS: Fluticasone/Umeclidinium/Vilanterol 200/62.5/25 BLST.W.DEV 1 PUFF INHALE (09:06)
[2023-04-20 09:10] VITALS: PULSE 99; RESP 20; O2SAT 86
--- NOTE | 2023-04-20 09:17 | PM.DS ---
DS: Providers Provider Date of Service: 04/20/23 Date of admission: 04/18/23 22:29 Date of discharge: 04/20/23 Primary care physician: TONI Dunn Consults: 04/19/23 07:49 Addiction Medicine Routine Consulting Provider: Addiction Covering Reason for consultation: heroin sniffing DS: Diagnosis Discharge Diagnosis (1) Acute and chronic respiratory failure with hypoxia: Status: Acute (2) Polysubstance abuse: Status: Acute (3) Moderate persistent allergic asthma with acute exacerbation: Status: Acute DS: Summary Hospital Course Hospital Course: From the history and physical by the admitting hospitalist, Ember Fowler MD, 04/18/23: Shiraz Cruz is a 48 years old man with past medical history significant for asthma, chronic respiratory failure -on home O2 as needed and pulmonary emboli on Eliquis presents to the emergency department complaining of shortness of breath associated with nonproductive cough over the last several days. He denies any associated symptoms such as headache, fever or chills. He denies chest pain, palpitations or dizziness. He also denies any acute gastrointestinal symptom. Patient denied the use of illicit drugs recently. however, according to ED notes patient reported is sniffing heroin (last use 2/3 days ago). He also denied tobacco smoking. Patient stated that he has been using breathing treatments at home without significant improvement of his symptoms. He is currently using Trelegy and Eliquis. In the ED, He was found to have stable vital signs. He currently is requiring 2 liters/minutes of supplemental oxygen which is his baseline. Blood workup including CBC and CMP is basically unremarkable. Venous blood gas showed note respiratory acidosis. Viral testing is negative. CXR showed no acute cardiopulmonary disease. it did show chronic burst suppression of the lungs. ED tx: albuterol and DuoNeb nebs x2, magnesium 2 mg IV x1 and Solu-Medrol 125 mg IV x1. Patient has improved is slightly but continues with shortness of breath. 48yo M with allergic asthma on omalizumab, chronic hypoxia on 2L O2, and polysubstance abuse on methadone admitted due to asthma exacerbation. Viral testing was negative. He was treated with IV steroids and nebulized bronchodilators and improved to the point where he was discharged home on his usual dose of oxygen. It is possible the asthma was provoked by inhalation drug use. He met with the Recovery Team and was counseled to avoid substances of abuse. He was continued on methadone. He was discharged on a 10-day prednisone taper with Pulmonology and Primary Care follow-up advised. Time Attestation Discharge coordination time: Greater than 30 minutes Quality: Safe Use of Opioids Does Pt have an Active Cancer Diagnosis on the Problem List?: No Quality: Stroke Does the patient have a stroke diagnosis?: No Physical Exam Vital Signs: Vital Signs: Last Vital Signs Temp 97.5 F 04/20/23 07:35 Pulse 99 04/20/23 09:10 Resp 20 04/20/23 09:10 BP 106/68 04/20/23 07:35 Pulse Ox 91 L 04/20/23 07:35 O2 Del Method Nasal Cannula 04/20/23 07:35 O2 Flow Rate 3 04/20/23 07:35 BMI result Body Mass Index 17.0 Gen: in no acute distress HEENT: sclera anicteric, moist mucus membranes Neck: supple Lungs: scattered expiratory wheezing, good air entry Heart: regular rate and rhythm, no murmurs Abd: soft, non-tender, non-distended Ext: no edema Skin: warm/well-perfused Neuro: alert and oriented x3, no focal findings Psych: appropriate affect DS: Data Data Completed and Pending Completed studies during hospitalization [Text1]: Laboratory Results WBC 10.4 X10*3/uL (4.8-10.8) 04/20/23 07:10 RBC 4.56 X10*6/uL (4.60-5.80) L 04/20/23 07:10 Hgb 14.3 g/dl (14.0-18.0) 04/20/23 07:10 Hct 43.7 % (42.0-52.0) 04/20/23 07:10 MCV 95.8 fL (80.0-98.0) 04/20/23 07:10 MCH 31.4 pg (27.0-33.0) 04/20/23 07:10 MCHC 32.7 g/dl (31.0-36.0) 04/20/23 07:10 RDW 12.8 % (11.0-16.0) 04/20/23 07:10 Plt Count 289 X10*3/uL (160-400) 04/20/23 07:10 MPV 10.2 fL (9.4-12.4) 04/20/23 07:10 Immature Gran % (Auto) 0.2 % (0.0-0.4) 04/19/23 05:47 Neut % (Auto) 85.3 % (45-73) H 04/19/23 05:47 Lymph % (Auto) 12.6 % (20-40) L 04/19/23 05:47 [place] % (Auto) 1.7 % (2-11) L 04/19/23 05:47 Eos % (Auto) 0.0 % (0-4) 04/19/23 05:47 Baso % (Auto) 0.2 % (0-2) 04/19/23 05:47 Lymph # (Auto) 0.7 X10*3/uL (1.2-4.9) L 04/19/23 05:47 [place] # (Auto) 0.1 X10*3/uL (0.1-1.2) 04/19/23 05:47 Eos # (Auto) 0.0 X10*3/uL (0.0-0.4) 04/19/23 05:47 Baso # (Auto) 0.0 X10*3/uL (0.0-0.2) 04/19/23 05:47 Abs Immat Gran (auto) 0.01 X10*3/uL (0.00-0.03) 04/19/23 05:47 Absolute Neuts (auto) 5.0 x10*3/uL (2.0-8.3) 04/19/23 05:47 Absolute Nucleated RBC 0.000 X10*3/uL (0.0-0.012) 04/20/23 07:10 Nucleated RBC % (auto) 0.0 /100WBC (0.0-0.2) 04/20/23 07:10 PT 11.3 SEC (11.1-13.3) 04/18/23 16:56 INR 0.9 (0.9-1.1) 04/18/23 16:56 VBG pH 7.37 (7.32-7.43) 04/18/23 17:48 VBG pCO2 57 mmHg 04/18/23 17:48 VBG pO2 34 mmHg 04/18/23 17:48 VBG HCO3 33 mmol/L (22-26) H 04/18/23 17:48 VBG O2 Saturation 47.0 % 04/18/23 17:48 VBG Base Excess 6.6 mmol/L 04/18/23 17:48 Sodium 138 mmol/L (135-145) 04/19/23 05:48 Potassium 4.9 mmol/L (3.3-5.1) 04/19/23 05:48 Chloride 104 mmol/L (96-108) 04/19/23 05:48 Carbon Dioxide 26 mmol/L (22-29) 04/19/23 05:48 Anion Gap 13 (12-20) 04/19/23 05:48 BUN 21 mg/dL (9-16) H 04/19/23 05:48 Creatinine 0.86 mg/dL (0.5-1.4) 04/19/23 05:48 Estim Creat Clear Calc 82.2 04/19/23 05:48 Estimated GFR > 60 04/19/23 05:48 Random Glucose 137 mg/dL (60-115) H 04/19/23 05:48 Calcium 9.7 mg/dL (8.4-10.2) 04/19/23 05:48 Total Bilirubin 0.4 mg/dL (0.0-1.0) 04/19/23 05:48 Direct Bilirubin 0.1 mg/dL (0.0-0.5) 04/18/23 16:56 AST 18 U/L (5-37) 04/19/23 05:48 ALT 19 U/L (0-40) 04/19/23 05:48 Alkaline Phosphatase 60 U/L (39-117) 04/19/23 05:48 Troponin I High Sens < 2.7 ng/L (<3.5-35.0) 04/18/23 16:56 B-Natriuretic Peptide 18 pg/mL (<100) 04/18/23 16:56 Total Protein 6.9 g/dL (6.5-8.0) 04/19/23 05:48 Albumin 4.2 g/dL (3.5-5.0) 04/19/23 05:48 Urine Color Yellow 04/19/23 13:27 Urine Appearance Clear 04/19/23 13:27 Urine pH 7.0 (5.0-9.0) 04/19/23 13:27 Ur Specific [place] >= 1.030 (1.005-1.025) H 04/19/23 13:27 Urine Protein Negative mg/dL (Neg-Trace) 04/19/23 13:27 Urine Glucose (UA) Negative mg/dL (Negative) 04/19/23 13:27 Urine Ketones Negative mg/dL (Negative) 04/19/23 13:27 Urine Blood Negative (Negative) 04/19/23 13: Urine Nitrite Negative (Negative) 04/19/23 13:27 Ur Leukocyte Esterase Negative (Negative) 04/19/23 13:27 Urine Opiates Screen POSITIVE (Not Detect) H 04/19/23 13: Urine Fentanyl Screen POSITIVE (Not Detect) H 04/19/23 13:27 Ur Barbiturates Screen Not Detected (Not Detect) 04/19/23 13:27 Ur Phencyclidine Scrn Not Detected (Not Detect) 04/19/23 13:27 Ur Amphetamines Screen Not Detected (Not Detect) 04/19/23 13:27 U Benzodiazepines Scrn Not Detected (Not Detect) 04/19/23 13:27 Urine Cocaine Screen POSITIVE (Not Detect) H 04/19/23 13:27 U Marijuana (THC) Screen Not Detected (Not Detect) 04/19/23 13:27 Respiratory Panel Gillis See Note 04/19/23 10:03 Adenovirus (Rapid PCR) Not Detected (Not Detect.) 04/19/23 10:03 B.pert (TEM-PCR) Not Detected (Not Detect.) 04/19/23 10:03 B.parapertussis DNA PCR Not Detected (Not Detect.) 04/19/23 10:03 C. pneumoniae DNA (PCR) Not Detected (Not Detect.) 04/19/23 10:03 Coronavirus OC43 (PCR) Not Detected (Not Detect.) 04/19/23 10:03 Coronavirus HKU1 (PCR) Not Detected (Not Detect.) 04/19/23 10:03 Coronavirus 229E (PCR) Not Detected (Not Detect.) 04/19/23 10:03 COVID-19 (ELI) Negative (Negative) 04/18/23 16:56 COVID-19 Clin Com See Note 04/18/23 16:56 Coronavirus NL63 (PCR) Not Detected (Not Detect.) 04/19/23 10:03 Hep Bs Antigen Negative (Negative) 04/20/23 07:10 Hep Bs Antibody NONREACTIVE (Nonreactive) 04/20/23 07:10 Hep B Core Total Ab Nonreactive (Nonreactive) 04/20/23 07:10 Hepatitis C Ab (EIA) Nonreactive (Nonreactive) 04/20/23 07:10 HIV 1&2 Ab/P24 Ag 4thGn Nonreactive (Nonreactive) 04/20/23 07:10 Human Metapneumovir PCR Not Detected (Not Detect.) 04/19/23 10:03 Influenza Type A (RYAN) Negative (Negative) 04/18/23 16:56 Influenza A (RT-PCR) Not Detected (Not Detect.) 04/19/23 10:03 Influenza Type B (RYAN) Negative (Negative) 04/18/23 16:56 Influenza B (RT-PCR) Not Detected (Not Detect.) 04/19/23 10:03 Influenza A & B Note See Note 04/18/23 16:56 M. pneumoniae (PCR) Not Detected (Not Detect.) 04/19/23 10:03 Parainfluenza 1 (PCR) Not Detected (Not Detect.) 04/19/23 10:03 Parainfluenza 2 (PCR) Not Detected (Not Detect.) 04/19/23 10:03 Parainfluenza 3 (PCR) Not Detected (Not Detect.) 04/19/23 10:03 Parainfluenza 4 (PCR) Not Detected (Not Detect.) 04/19/23 10:03 RSV (PCR) Not Detected (Not Detect.) 04/19/23 10:03 Entero/Rhino (PCR) Not Detected (Not Detect.) 04/19/23 10:03 SARS-CoV-2 RNA (RT-PCR) Not Detected (Not Detect.) 04/19/23 10:03 Impressions Chest X-Ray 04/18/23 17:22 IMPRESSION: 1. No radiographically evident acute pulmonary abnormalities. 2. Chronic hyperexpansion of the lungs. 3. Apparent poorly defined hazy density seen on the PA view in the right lung base this favored to represent overlapping ribs, similar to exam from 2022. However, if symptoms persist follow-up with slight oblique images may further assess. No additional focal consolidative process. Discharge Plan Discharge Anticipated Discharge Date/Time: 04/20/23 09:07 Patient Disposition: Home, Self-Care Discharge Diagnosis: acute exacerbation of moderate persistent allergic asthma polysubstance abuse Referrals: Kishor Barrett FNP- [Primary Care Provider] - Riley Borjas MD [Physician] - 1 Week Discharge Medications: New prednisone 10 mg tablet See Rx Instructions .ROUTE .COMPLEX Qty: 21 0RF Rx Instructions: 40 mg (4 tabs) daily x 2 days, then 30 mg (3 tabs) daily x 2 days, then 20 mg (2 tabs) daily x 2 days, then 10 mg (1 tab) daily x 2 days, then 5 mg (half tab) daily x 2 days Continued (DME) nebulizers Misc See Rx Instructions .Route Qty: 1 0RF Rx Instructions: Use every 4 hours as needed for SOB, wheezing Xolair 150 mg recon soln 225 mg subcut Q2W 28 Days Qty: 3 6RF Trelegy Ellipta 200-62.5-25 mcg blister with device 1 inh inhalation DAILY 30 Days Qty: 1 6RF Eliquis 5 mg tablet 5 mg PO BID Qty: 120 3RF hydroxyzine HCl 25 mg tablet 25 mg PO BID PRN (Reason: anxiety) 30 Days Qty: 60 0RF Rx Instructions: Future refills considered AFTER blood work completed albuterol sulfate [Ventolin HFA] 90 mcg/actuation HFA aerosol inhaler 2 puff PO Q4-6H PRN (Reason: for wheezing) Qty: 18 2RF albuterol sulfate 2.5 mg /3 mL (0.083 %) solution for nebulization 2.5 mg inhalation Q4-6H PRN (Reason: for wheezing) Qty: 75 3RF fluticasone propionate [Allergy Relief (fluticasone)] 50 mcg/actuation spray,suspension 2 spray intranasal DAILY PRN (Reason: Allergy Symptoms) Rx Instructions: administer into each nostril Future refills considered AFTER blood work completed methadone [Methadose] 10 mg/mL Concentrate 48 mg PO DAILY Trelegy Ellipta 200-62.5-25 mcg blister with device 1 ea INHALATION DAILY sennosides-docusate sodium [Senexon-S] 8.6-50 mg tablet 1 tab-cap PO BID PRN (Reason: Constipation) Discharge Orders: Discharge Order (Routine); Ordered 04/20/23 Ordered By: Kaylin Tatum Diet: Advance to usual diet Activity on Discharge: As tolerated Stand Alone Forms: Patient Portal Discharge page Care Plan Goals: pulmonary health abstinence from drugs Health Concerns: acute exacerbation of moderate persistent allergic asthma polysubstance abuse Plan of Treatment: prednisone taper: 40 mg daily x 2 days, then 30 mg daily x 2 days, then 20 mg daily x 2 days, then 10 mg daily x 2 days, then 5 mg daily x 2 days continue albuterol, Trelegy, Xolair follow up with Pulmonology in 2 weeks Please follow up with your primary care doctor within 1 week. Return to the hospital if you experience recurrent or worsening symptoms. avoid substance abuse Assessment: .ass Patient Instructions: Asthma (ED)
--- NOTE | 2023-04-20 13:00 | MHC.CM.PN ---
Pt medically cleared for D/C home self-care. Pt transported home via [employer].
--- NOTE | 2023-04-20 15:05 | P.CDIM_ITS ---
PROVIDER RESPONSE TEXT: To clarify, the appropriate diagnosis supported by the clinical indicators: Underweight QUERY TEXT: PHYSICIAN'S DOCUMENTATION REQUEST Date of Query: 04/20/2023 09:05 AM EST Patient Name: Shiraz Cruz Admit Date: 04/19/2023 Dear Kaylin Tatum, A review of the medical record indicates additional documentation may be needed. Please review below and update the documentation accordingly. Clinical Indicators: Height: ( ) 5'11 Weight: ( ) 55.3 kg BMI: ( ) 17.0 Other Clinical Notes Supporting Significance of the BMI: If possible, please provide an associated diagnosis related to the abnormal BMI, such as: Underweight Weight loss Cachexia Anorexia BMI is not significant Other (explain) Clinically unable to determine (explain) Thank you, Eliza Mckeon RN Use of terms such as suspected, likely, concern for, or probable (associated with a specific diagnosi s that is being evaluated, monitored, or treated as if it exists) are acceptable and can be coded in the inpatient se tting, when documented at the time of discharge. Please use your independent medical judgment in providing your response. THIS QUERY IS PART OF THE PERMANENT MEDICAL RECORD
== END 2023-04-20 11:30 | disposition home or self-care (01) | DRG 141 ==
LOC: HO.ED 21:43 → HO.EDOVER 22:39 → HO.IMC 04-19 18:07
PROVIDERS: Physician Assistant; Admitting Provider Internal Medicine; Emergency Provider Student in an Organized Health Care Education/Training Program; PCP Nurse Practitioner Family; Visit Provider Family Medicine
DX: J45.41 Moderate persistent asthma with (acute) exacerbation (principal); J96.21 Acute and chronic respiratory failure with hypoxia; Z99.81 Dependence on supplemental oxygen; R63.6 Underweight; Z68.1 Body mass index [BMI] 19.9 or less, adult; F11.20 Opioid dependence, uncomplicated; F19.10 Other psychoactive substance abuse, uncomplicated; Z86.711 Personal history of pulmonary embolism; Z87.891 Personal history of nicotine dependence; Z79.01 Long term (current) use of anticoagulants; Z20.822 Contact with and (suspected) exposure to COVID-19; Z79.899 Other long term (current) drug therapy
CPT/HCPCS: 36415; 71046; 80048; 80053; 80076; 80307; 81003; 82803; 83880; 84484; 85025; 85027; 85610; 86704; 86706; 86803; 87340; 87389; 87502; 87633; 87635; 93005; 94640; 99222; 99285; J2930; J3475

== ENCOUNTER → 2023-04-18 16:16 | Outpatient (BNV) | payer OTHER, SELFPAY | PROVIDERS: Admitting Provider Internal Medicine; Emergency Provider Student in an Organized Health Care Education/Training Program; PCP Nurse Practitioner Family; Visit Provider Internal Medicine Cardiovascular Disease | DX: R94.31 Abnormal electrocardiogram [ECG] [EKG] (principal); R06.02 Shortness of breath | CPT/HCPCS: 93010 ==

== ENCOUNTER → 2023-04-18 22:29 | Outpatient (BNV) | payer OTHER, SELFPAY | PROVIDERS: Admitting Provider Internal Medicine; Emergency Provider Student in an Organized Health Care Education/Training Program; PCP Nurse Practitioner Family; Visit Provider Internal Medicine | DX: J96.11 Chronic respiratory failure with hypoxia (principal); J45.901 Unspecified asthma with (acute) exacerbation | CPT/HCPCS: 99223; 99232; 99239 ==

== ENCOUNTER 2023-04-27 18:46 | Inpatient (IN) | payer OTHER, SELFPAY ==
--- NOTE | ~2023-04-27 | XR_ITS ---
EXAMINATION: XR CHEST CLINICAL INFORMATION: Shortness of breath. COMPARISON: Chest radiographs dated 04/18/2023; CT chest dated 01/06/2022. TECHNIQUE: 2 frontal views of the chest were obtained. FINDINGS: No significant abnormality is noted involving the heart, lungs, mediastinum, bony thorax or soft tissues. Again, there is hyperinflation. XR/XR chest 1V IMPRESSION: No active cardiopulmonary disease. There is stable hyperinflation
[2023-04-27 18:53] VITALS: BP 118/55; PULSE 97; RESP 30; TEMP 38.6; O2SAT 94; BMI 22.2
--- NOTE | 2023-04-27 19:00 | ED_ITS ---
HPI - General Adult General Chief complaint: Dyspnea Stated complaint: DIFF BREATHING, COUGH Time Seen by Provider: 04/27/23 18:53 History of Present Illness HPI narrative: 48 y/o M patient; PMH asthma, polysubstance abuse, pulmonary embolism on Eliquis; presents from home reporting two days of chills, fever, cough productive of dark sputum, and increased shortness of breath. The patient was last seen in this hospital from 04/18 - 04/20/2023 for acute on chronic respiratory failure. He states he felt better on discharge home until yesterday afternoon. He has + sick contacts in his partner with whom he lives. He otherwise denies: abdominal pain, nausea or vomiting, diarrhea. EMS found the patient to be saturating in 70 - 80% on RA, improved with x1 DuoNeb and 125mg IV Solu-Medrol. Related Data Home Medications Medication Instructions Recorded Confirmed sennosides 8.6 mg-docusate sodium 1 tab-cap PO BID PRN Constipation 08/29/22 04/18/23 50 mg tablet (Senexon-S) fluticasone propionate 50 2 spray intranasal DAILY PRN 04/18/23 04/18/23 mcg/actuation nasal Allergy Symptoms spray,suspension (Allergy Relief (fluticasone)) methadone 10 mg/mL oral 48 mg PO DAILY 04/18/23 04/19/23 concentrate (Methadose) fluticasone fur. 200 mcg-umeclid 1 ea inhalation DAILY 04/19/23 04/19/23 62.5 mcg-vilant 25 mcg inhalat.powder (Trelegy Ellipta) Previous Rx's Medication Instructions Recorded nebulizers #1 ea 11/26/20 omalizumab 150 mg subcutaneous 225 mg subcut Q2W 28 days #3 ea 01/11/22 solution (Xolair) fluticasone fur. 200 mcg-umeclid 1 inh inhalation DAILY 30 days #1 10/04/22 62.5 mcg-vilant 25 mcg ea inhalat.powder (Trelegy Ellipta) apixaban 5 mg tablet (Eliquis) 5 mg PO BID #120 tabs 01/04/23 hydroxyzine HCl 25 mg tablet 25 mg PO BID PRN anxiety 30 days 01/04/23 #60 tabs Ventolin HFA 90 mcg/actuation 2 puff PO Q4-6H PRN for wheezing 02/28/23 aerosol inhaler (albuterol sulfate) #18 ea albuterol sulfate 2.5 mg/3 mL 2.5 mg (3 mL) inhalation Q4-6H PRN 04/18/23 (0.083 %) solution for nebulization for wheezing #75 mL prednisone 10 mg tablet See Rx Instructions .Route 04/20/23 .COMPLEX #21 tabs Allergies Allergy/AdvReac Type Severity Reaction Status Date / Time walnut Allergy Unknown SWELLING Verified 12/13/22 10:20 buprenorphine [From Suboxone] Allergy swelling Verified 12/13/22 10:20 in his hands and rash naloxone [From Suboxone] Allergy swelling Verified 12/13/22 10:20 in his hands and rash NSAIDS/ASA Allergy Unknown unknown Uncoded 08/29/22 09:32 walnuts Allergy Unknown anaphylaxis Uncoded 08/29/22 09:32 Review of Systems 2 Review of Systems: Yes all other systems are reviewed and are negative PMFSH Past Medical History Attestation statement: The following information was validated with the patient. Source: old records reviewed Onset Date is defined in the Problem List Problems that require an onset date and time if occurred within 24 hrs of arrival to the ED Aortic Dissection and Rupture; Neurologic impairment; Cardiopulmonary Arrest; Endotracheal Intubation; Insertion or Replacement of Mechanical Circulatory Assist Device Medical History Moderate persistent asthma with exacerbation Opiate abuse, episodic Left against medical advice Lung problems from crack cocaine Chronic lung disease Asthma Pulmonary emboli Family History Family History Other Family history non-contributory Social History Social History Household Members: Significant Other Housing: House Do you presently have visiting nurse or other home services: No Unable to assess alcohol history related to: Unknown Alcohol intake: never Patient Tobacco Use Status: Former Tobacco user Tobacco use type: Cigarette Cigarettes Per Day: 2 Smoked in Last 30 Days: Yes e-Cigarette/Vaping Use: Never Used Second Hand Smoke Exposure: No Use of substances other than those prescribed or required for medical reasons: No Substance Use Type: Heroin Advance Directives: No Advance Directives Information Provided: No service: No Current occupational status: unemployed Cognitive needs: No Hearing needs: No Vision needs: No Physical Exam ED Vital Signs: Vital Signs - 24 hr 04/27/23 18:53 04/27/23 19:04 04/27/23 19:05 Temperature 101.4 F H Pulse Rate 97 92 Respiratory Rate 30 H 30 H 30 H Blood Pressure 118/55 L Pulse Oximetry 94 Oxygen Delivery Method Nasal Cannula Oxygen Flow Rate 04/27/23 19:33 04/27/23 19:58 Temperature Pulse Rate 110 H Respiratory Rate 30 H 31 H Blood Pressure 108/50 L Pulse Oximetry 95 Oxygen Delivery Method High Flow Nasal Cannula Oxygen Flow Rate 4 BMI result Body Mass Index 22.2 Patient is febrile, normotensive, saturating well on high-flow nasal cannula. HENMT Head: Yes atraumatic Ears: TM's normal bilaterally Eyes General: appearance normal, both eyes and all related structures Neck Neck: Yes full ROM, Yes supple and No tender Chest Chest palpation & inspection: normal inspection of the chest and normal palpation of entire chest wall Resp Effort & Inspection: able to speak in complete sentences and Actively coughing Auscultation: diminished lung sounds Cardio Rate: regular rate Rhythm: regular rhythm Peripheral pulses: Peripheral pulses 2+ throughout GI Inspection: No Abdominal wall edema and No distended Palpation (GI): Soft to palpation, not firm, nontender, no guarding and not rigid Auscultation: normal bowel sounds Course Course Course Narrative: Patient is febrile - provided Tylenol. Suspected source is respiratory. Will obtain COVID/Flu/RSV, CXR, and laboratory studies. Reevaluation(s) Reevaluation #1: CXR without focal infiltrate. COVID/Flu/RSV positive for Flu. Will treat with TamiFlu as patient is within the window. VBG otherwise with chronic compensation. Patient remains on high-flow nasal cannula. Plan: Admit to hospitalist Condition: Stable Medications Administered Discontinued Medications Generic Name Dose Route Start Last Admin Trade Name Freq PRN Reason Stop Dose Admin Acetaminophen 975 mg 04/27/23 19:07 04/27/23 19:44 Acetaminophen 325 Mg Tablet PO 04/27/23 19:08 975 mg ONCE ONE Administration Albuterol Sulfate 7.5 mg/ 0 mg 04/27/23 18:56 04/27/23 19:06 Albuterol/Ipratropium 3 ml INHALE 04/27/23 18:57 1 each ONCE ONE Administration Medical Decision Making Lab Data 04/27/23 19:59 04/27/23 20:00 Labs: Lab Results 04/27/23 04/27/23 04/27/23 Range/Units 19:09 19:59 20:02 WBC 10.9 H (4.8-10.8) X10*3/uL RBC 3.98 L (4.60-5.80) X10*6/uL Hgb 12.7 L (14.0-18.0) g/dl Hct 38.1 L (42.0-52.0) % MCV 95.7 (80.0-98.0) fL MCH 31.9 (27.0-33.0) pg MCHC 33.3 (31.0-36.0) g/dl RDW 12.6 (11.0-16.0) % Plt Count 184 D (160-400) X10*3/uL MPV 9.6 (9.4-12.4) fL Immature Gran % (Auto) 0.3 (0.0-0.4) % Neut % (Auto) 84.8 H (45-73) % Lymph % (Auto) 8.9 L (20-40) % [place] % (Auto) 5.4 (2-11) % Eos % (Auto) 0.4 (0-4) % Baso % (Auto) 0.2 (0-2) % Lymph # (Auto) 1.0 L (1.2-4.9) X10*3/uL [place] # (Auto) 0.6 (0.1-1.2) X10*3/uL Eos # (Auto) 0.0 (0.0-0.4) X10*3/uL Baso # (Auto) 0.0 (0.0-0.2) X10*3/uL Abs Immat Gran (auto) 0.03 (0.00-0.03) X10*3/uL Absolute Neuts (auto) 9.2 H (2.0-8.3) x10*3/uL Absolute Nucleated RBC 0.000 (0.0-0.012) X10*3/uL Nucleated RBC % (auto) 0.0 (0.0-0.2) /100WBC VBG pH 7.43 (7.32-7.43) VBG pCO2 50 mmHg VBG pO2 37 mmHg VBG HCO3 34 H (22-26) mmol/L VBG O2 Saturation 60.0 % VBG Base Excess 8.5 mmol/L Influenza Type A (PCR) POSITIVE A (Negative) Influenza Type B (PCR) NEGATIVE (Negative) RSV RNA Qual (PCR) NEGATIVE (Negative) SARS-CoV-2 RNA (RT-PCR) NEGATIVE (Negative) Discharge Plan Discharge Patient Disposition: Admitted As Inpatient
[2023-04-27 19:04] VITALS: PULSE 92; RESP 30; O2SAT 92
[2023-04-27 19:05] VITALS: PULSE 92; RESP 30; O2SAT 92
[2023-04-27] MEDS: Albuterol Sulfate 7.5 MG, Albuterol/Iprat 2.5/0.5MG 3 ML 3 ML INHALE (19:06)
[2023-04-27 19:33] VITALS: PULSE 98; RESP 30; O2SAT 97
[2023-04-27] MEDS: Acetaminophen 325 MG TABLET 975 MG PO (19:44)
[2023-04-27 19:58] VITALS: BP 108/50; PULSE 110; RESP 31; O2SAT 95
[2023-04-27 19:58] LABS: Influenza A PCR POSITIVE (Negative); Influenza B PCR NEGATIVE (Negative); Resp Syncy Virus RNA Qual PCR NEGATIVE (Negative); SARS COV2 PCR INHOUSE NEGATIVE (Negative)
[2023-04-27 20:05] LABS: MANUAL DIFF FLAG NO
[2023-04-27 20:08] LABS: Basophils Percent Auto 0.2 % (0-2); Eosinophils Percent Auto 0.4 % (0-4); Hematocrit 38.1 % (42.0-52.0); Hemoglobin 12.7 g/dl (14.0-18.0); Imm Gran Abs Auto 0.03 X10*3/uL (0.00-0.03); Imm Gran Pct Auto 0.3 % (0.0-0.4); Lymphocytes Percent Auto 8.9 % (20-40); Mean Corpuscular HGB Conc 33.3 g/dl (31.0-36.0); Mean Corpuscular Hemoglobin 31.9 pg (27.0-33.0); Mean Corpuscular Volume 95.7 fL (80.0-98.0); Mean Platelet Volume 9.6 fL (9.4-12.4); Monocytes Absolute Auto 0.6 X10*3/uL (0.1-1.2); Monocytes Percent Auto 5.4 % (2-11); Neutrophils Absolute Auto 9.2 x10*3/uL (2.0-8.3); Neutrophils Percent Auto 84.8 % (45-73); Platelet Count 184 X10*3/uL (160-400); Red Blood Count 3.98 X10*6/uL (4.60-5.80); Red Cell Distribution Width 12.6 % (11.0-16.0); White Blood Count 10.9 X10*3/uL (4.8-10.8)
[2023-04-27 20:09] LABS: VBG Base Excess 8.5 mmol/L; VBG HCO3 34 mmol/L (22-26); VBG pCO2 50 mmHg; VBG pH 7.43 (7.32-7.43); VBG pO2 37 mmHg
[2023-04-27 20:16] LABS: Venous Blood Gas Refer to POC result
[2023-04-27 21:05] LABS: Alanine Aminotransferase 19 U/L (0-40); Albumin Level 3.8 g/dL (3.5-5.0); Alkaline Phosphatase 49 U/L (39-117); Anion Gap 11 (12-20); Aspartate Amino Transferase 20 U/L (5-37); Bilirubin Direct 0.2 mg/dL (0.0-0.5); Bilirubin Total 0.5 mg/dL (0.0-1.0); Blood Urea Nitrogen 14 mg/dL (9-16); Calcium 8.7 mg/dL (8.4-10.2); Carbon Dioxide 32 mmol/L (22-29); Chloride 101 mmol/L (96-108); Estimated Glomerular Filt Rate > 60; Glucose Random 121 mg/dL (60-115); Lipase 8 U/L (8-78); Potassium 3.6 mmol/L (3.3-5.1); Sodium 140 mmol/L (135-145)
--- NOTE | 2023-04-27 21:05 | P.HPHOSP_ITS ---
History of Present Illness Date of Service: 04/27/23 Chief Complaint: Dyspnea and wheezing This is a 48-year-old male with pertinent history of chronic hypoxemic respiratory failure due to asthma on oxygen as needed, opioid use disorder on methadone, history of PE on Eliquis presents to the emergency department for evaluation of dyspnea and wheezing. Patient states he was recently admitted to the hospital for asthma exacerbation and was fine when he went home. He started having symptoms 1 day prior to presentation. It included nonproductive cough and wheezing. Also has been having dyspnea which is worse with exertion. Endorses associated fevers and chills. His partner is sick at home. No palpitations, orthopnea, PND, abdominal pain, changes in urinary or bowel habits. As per EMS, patient was found to be saturating in the 70s and was given IV Solu-Medrol 125 mg and DuoNeb. In the emergency department, patient with continued wheezing and requiring supplemental oxygen. Review of Systems 2 Constitutional: Constitutional: Reports chills, Reports fatigue, Reports fever(s), Reports lethargy, Reports malaise and Reports weakness Cardiovascular: Cardiovascular: Reports dyspnea on exertion Respiratory: Respiratory: Reports cough, Reports dyspnea on exertion and Reports wheezing Gastrointestinal: Gastrointestinal: Reports no additional gastrointestinal complaints Genitourinary: Genitourinary: Reports no additional male genitourinary complaints Neurologic: Reports weakness Endocrine: Endocrine: Reports fatigue Allergic/Immunologic: Allergic/Immunologic: Reports wheezing [facility] Medical History Moderate persistent asthma with exacerbation Opiate abuse, episodic Left against medical advice Lung problems from crack cocaine Chronic lung disease Asthma Pulmonary emboli Family History Other Family history non-contributory Pertinent family history: No family history of early CAD Social History Household Members: Significant Other Housing: House Do you presently have visiting nurse or other home services: No Unable to assess alcohol history related to: Unknown Alcohol intake: never Patient Tobacco Use Status: Former Tobacco user Tobacco use type: Cigarette Cigarettes Per Day: 2 Smoked in Last 30 Days: Yes e-Cigarette/Vaping Use: Never Used Second Hand Smoke Exposure: No Use of substances other than those prescribed or required for medical reasons: No Substance Use Type: Heroin Advance Directives: No Advance Directives Information Provided: No service: No Current occupational status: unemployed Cognitive needs: No Hearing needs: No Vision needs: No Meds Allergies Allergy/AdvReac Type Severity Reaction Status Date / Time walnut Allergy Unknown SWELLING Verified 12/13/22 10:20 buprenorphine [From Suboxone] Allergy swelling Verified 12/13/22 10:20 in his hands and rash naloxone [From Suboxone] Allergy swelling Verified 12/13/22 10:20 in his hands and rash NSAIDS/ASA Allergy Unknown unknown Uncoded 08/29/22 09:32 walnuts Allergy Unknown anaphylaxis Uncoded 08/29/22 09:32 Active Medications: Current Medications Acetaminophen (Acetaminophen 325 Mg Tablet) 650 mg PO Q6H PRN PRN Reason: Pain, Mild (Pain Scale 1-3) Albuterol/Ipratropium (Albuterol/Iprat 2.5/0.5mg 3 Ml Ampul.Neb) 3 ml INHALE RQ4H WHILE AWAKE [facility] Albuterol/Ipratropium (Albuterol/Iprat 2.5/0.5mg 3 Ml Ampul.Neb) 3 ml INHALE Q4H PRN PRN Reason: Wheezing Sodium Chloride (Ns) 1,000 mls @ 999 mls/hr IV .Q1H1M [facility] Stop: 04/27/23 21:45 Magnesium Sulfate (Magnesium Sulfate/H2o) 2 gm in 50 mls @ 25 mls/hr IV ONCE ONE Stop: 04/27/23 22:46 Melatonin (Melatonin 3 Mg Tablet) 6 mg PO BEDTIME PRN PRN Reason: Insomnia Ondansetron HCl (Ondansetron Hcl 4 Mg/2 Ml Vial) 4 mg IVPUSH Q8H PRN PRN Reason: Nausea and Vomiting Oseltamivir Phosphate (Oseltamivir Phosphate 75 Mg Capsule) 75 mg PO Q12H [facility] Stop: 05/02/23 21:01 Sodium Chloride (0.9 % Sodium Chloride Flush 3 Ml Syringe) 3 ml IVFLUSH QSHIFT [facility] Home Medications Medication Instructions Recorded Confirmed Last Taken Type sennosides 8.6 mg-docusate sodium 1 tab-cap PO BID PRN Constipation 08/29/22 04/27/23 Unknown History 50 mg tablet (Senexon-S) fluticasone propionate 50 2 spray intranasal DAILY PRN 04/18/23 04/27/23 Unknown History mcg/actuation nasal Allergy Symptoms spray,suspension (Allergy Relief (fluticasone)) methadone 10 mg/mL oral 48 mg PO DAILY 04/18/23 04/19/23 04/18/23 History concentrate (Methadose) fluticasone fur. 200 mcg-umeclid 1 ea inhalation DAILY 04/19/23 04/27/23 Unknown History 62.5 mcg-vilant 25 mcg inhalat.powder (Trelegy Ellipta) Physical Exam 2 Vital Signs and Narrative: Vital Signs: Last Vital Signs Temp 101.4 F H 04/27/23 18:53 Pulse 110 H 04/27/23 19:58 Resp 31 H 04/27/23 19:58 BP 108/50 L 04/27/23 19:58 Pulse Ox 95 04/27/23 19:58 O2 Del Method High Flow Nasal C annula 04/27/23 19:58 O2 Flow Rate 4 04/27/23 19:58 Oxygen Flow Rate 4 04/27/23 18:53 BMI result Body Mass Index 22.2 Middle-aged male lying in bed in mild distress on supplemental oxygen Neck supple, no JVD Tachycardia with regular rhythm, S1-S2 heard Bilateral wheezing without crackles Abdomen soft nontender, no guarding, no rigidity Patient is awake, alert and oriented to self, place, time and person ; no focal motor deficit Psych: Normal mood No pedal edema Results Labs 04/27/23 19:59 04/27/23 20:44 Labs: Laboratory Results - last 24 hr 04/27/23 04/27/23 04/27/23 19:09 19:59 20:02 MCV 95.7 MCH 31.9 MCHC 33.3 RDW 12.6 Plt Count 184 D MPV 9.6 Immature Gran % (Auto) 0.3 Neut % (Auto) 84.8 H Lymph % (Auto) 8.9 L [place] % (Auto) 5.4 Eos % (Auto) 0.4 Baso % (Auto) 0.2 Lymph # (Auto) 1.0 L [place] # (Auto) 0.6 Eos # (Auto) 0.0 Baso # (Auto) 0.0 Abs Immat Gran (auto) 0.03 Absolute Neuts (auto) 9.2 H Absolute Nucleated RBC 0.000 Nucleated RBC % (auto) 0.0 VBG pH 7.43 VBG pCO2 50 VBG pO2 37 VBG HCO3 34 H VBG O2 Saturation 60.0 VBG Base Excess 8.5 Anion Gap Estim Creat Clear Calc Estimated GFR Random Glucose Calcium Total Bilirubin Direct Bilirubin AST ALT Alkaline Phosphatase Total Protein Albumin Lipase Influenza Type A (PCR) POSITIVE A Influenza Type B (PCR) NEGATIVE RSV RNA Qual (PCR) NEGATIVE SARS-CoV-2 RNA (RT-PCR) NEGATIVE 04/27/23 20:44 MCV MCH MCHC RDW Plt Count MPV Immature Gran % (Auto) Neut % (Auto) Lymph % (Auto) [place] % (Auto) Eos % (Auto) Baso % (Auto) Lymph # (Auto) [place] # (Auto) Eos # (Auto) Baso # (Auto) Abs Immat Gran (auto) Absolute Neuts (auto) Absolute Nucleated RBC Nucleated RBC % (auto) VBG pH VBG pCO2 VBG pO2 VBG HCO3 VBG O2 Saturation VBG Base Excess Anion Gap 11 L Estim Creat Clear Calc 112.0 Estimated GFR > 60 Random Glucose 121 H Calcium 8.7 D Total Bilirubin 0.5 Direct Bilirubin 0.2 AST 20 ALT 19 Alkaline Phosphatase 49 Total Protein 6.0 L Albumin 3.8 Lipase 8 Influenza Type A (PCR) Influenza Type B (PCR) RSV RNA Qual (PCR) SARS-CoV-2 RNA (RT-PCR) Assessment and Plan (1) Influenza: Status: Acute (2) Moderate persistent allergic asthma with acute exacerbation: Status: Acute Plan This is a 48-year-old male with pertinent history of chronic hypoxemic respiratory failure due to asthma on oxygen as needed, opioid use disorder on methadone, history of PE on Eliquis presents to the emergency department for evaluation of dyspnea and wheezing. #. Acute on chronic hypoxemic respiratory failure due to acute exacerbation of asthma in the setting of influenza a: Will admit patient with supplemental oxygen. Scheduled and p.r.n. DuoNebs. Initiating systemic steroids. Also initiating Tamiflu. Continue home inhalers #. Opioid use disorder on methadone #. History of PE on Eliquis Med rec pending DVT prophylaxis: Eliquis Full code Admit as inpatient and will require two night minimum hospital stay for supplemental oxygen, monitoring of respiratory status (as above), which is not possible in a lesser acute setting. Quality Stroke Does the patient have a stroke diagnosis?: No VTE Prior VTE?: No VTE Risk Level:: Medical - moderate - high VTE Device Contraindication: Treatment Not Indicated VTE Drug Contraindication: N/A - Med Ordered
[2023-04-27 21:12] LABS: Troponin-I High Sensitivity < 2.7 ng/L (<3.5-35.0)
--- NOTE | 2023-04-27 21:18 | PHA.MEDREC ---
Addendum entered by Parris Vargas jules 04/27/23 21:19: patient is currently taking 3 tablets daily, day 2 of his prednisone taper. Original Note: Pharmacy Consult ? Medication Reconciliation Pharmacy has completed the medication reconciliation. Spoke to patient
[2023-04-27] MEDS: 0.9 % Sodium Chloride 1,000 ML 999 ML IV (21:19)
[2023-04-27] MEDS: Oseltamivir Phosphate 75 MG CAPSULE PO (21:19)
[2023-04-27] MEDS: Magnesium Sulfate/H2O 2 GM/50 ML PIGGYBACK IV (21:19)
--- NOTE | 2023-04-27 22:26 | PC.NURSE ---
Pt sleeping at the bedside. No apparent distress noted. NSR on monitor with hr 71. O2 sat 97% on 10L high flow. RR 20. Pending bed assignment.
[2023-04-27 22:27] VITALS: TEMP 37
[2023-04-28] VITALS (12 sets, daily range): BP systolic 112–151; BP diastolic 69–98; PULSE 72–113; RESP 17–24; TEMP 36.6–37.1; O2SAT 92–100
[2023-04-28] MEDS: Albuterol/Iprat 2.5/0.5MG 3 ML AMPUL.NEB INHALE ×5 (04:18→15:07)
[2023-04-28] MEDS: hydrOXYzine HCL 25 MG TABLET PO (04:27)
--- NOTE | 2023-04-28 06:05 | PC.NURSE ---
Patient with episodes of shortness of breath. Seen by respiratory, given updraft, and MD called for antianxiety med as patient felt his anxiety was worsening his SOB. Atarax administered with good effect.
[2023-04-28 06:15] LABS: Hematocrit 38.2 % (42.0-52.0); Hemoglobin 12.6 g/dl (14.0-18.0); Imm Gran Abs Auto 0.04 X10*3/uL (0.00-0.03); Imm Gran Pct Auto 0.5 % (0.0-0.4); Lymphocytes Absolute Auto 0.4 X10*3/uL (1.2-4.9); Lymphocytes Percent Auto 4.7 % (20-40); MANUAL DIFF FLAG SCAN; Mean Platelet Volume 10.4 fL (9.4-12.4); Monocytes Absolute Auto 0.4 X10*3/uL (0.1-1.2); Monocytes Percent Auto 4.4 % (2-11); Neutrophils Absolute Auto 7.9 x10*3/uL (2.0-8.3); Neutrophils Percent Auto 90.4 % (45-73); Platelet Count 204 X10*3/uL (160-400); Red Blood Count 3.94 X10*6/uL (4.60-5.80); Red Cell Distribution Width 12.8 % (11.0-16.0); SCAN SMEAR FLAG 1; White Blood Count 8.7 X10*3/uL (4.8-10.8)
[2023-04-28 06:35] LABS: Anion Gap 14 (12-20); Blood Urea Nitrogen 11 mg/dL (9-16); Calcium 8.8 mg/dL (8.4-10.2); Carbon Dioxide 29 mmol/L (22-29); Chloride 101 mmol/L (96-108); Creatinine Clr Calc Pharmacy 128.9; Estimated Glomerular Filt Rate > 60; Glucose Random 161 mg/dL (60-115); Potassium 4.1 mmol/L (3.3-5.1); Sodium 140 mmol/L (135-145)
[2023-04-28 06:49] LABS: SLIDE REVIEW VERIFIED
[2023-04-28] MEDS: Apixaban 5 MG TABLET PO ×2 (09:09→20:36)
[2023-04-28] MEDS: 0.9 % Sodium Chloride Flush 3 ML SYRINGE IVFLUSH ×2 (09:09→20:36)
[2023-04-28] MEDS: Oseltamivir Phosphate 75 MG CAPSULE PO ×2 (09:09→20:36)
--- NOTE | 2023-04-28 09:43 | P.PNIM_ITS ---
Subjective Subjective Date of Service: 04/28/23 <Le Gonzales Awais - Last Filed: 04/28/23 11:37> 04/28/23 <Dequan Oneil MD - Last Filed: 04/28/23 11:53> Interval History: Continues to be short of breath. Reports he has a productive cough and some chills. Denies chest pain, palpitations, abdominal pain, n/v. <Le Christian Ernandez - Last Filed: 04/28/23 11:37> f/u on asthma with acute hypoxic resp failure and highflow Continues to be short of breath. Reports he has a productive cough and some chills. Denies chest pain, palpitations, abdominal pain, n/v. <Dequan Oneil MD - Last Filed: 04/28/23 11:53> Review of Systems Review of Systems: Yes all other systems are reviewed and are negative <Le Cruzantwon - Last Filed: 04/28/23 11:37> Physical Exam 2 Vital Signs: Vital Signs: Last Vital Signs Temp 98.7 F 04/28/23 07:37 Pulse 82 04/28/23 07:43 Resp 20 04/28/23 07:45 BP 151/98 H 04/28/23 07:37 Pulse Ox 100 04/28/23 07:37 O2 Del Method CPAP 04/28/23 07:37 O2 Flow Rate 10 04/28/23 01:23 Oxygen Flow Rate 4 04/27/23 18:53 BMI result Body Mass Index 22.2 <Le Cruzantwon - Last Filed: 04/28/23 11:37> Gen: A&O x 3 Lungs: scattered expiratory wheezing and mild rhonchi. Increased respiratory effort Heart: regular rate and rhythm, no murmurs Abd: soft, non-tender, non-distended Ext: no edema Skin: warm/well-perfused Neuro: no focal findings Psych: appropriate affect <Le Cruzantwon - Last Filed: 04/28/23 11:37> Gen: A&O x 3 Lungs: scattered expiratory wheezing and mild rhonchi. more than normal resp effort Heart: regular rate and rhythm, no murmurs Abd: soft, non-tender, non-distended Ext: no edema Skin: warm/well-perfused Neuro: no focal findings Psych: appropriate affect <Dequankeiry Oneil MD - Last Filed: 04/28/23 11:53> Objective Data Active Medications Acetaminophen (Acetaminophen 325 Mg Tablet) 650 mg PO Q6H PRN PRN Reason: Pain, Mild (Pain Scale 1-3) Albuterol/Ipratropium (Albuterol/Iprat 2.5/0.5mg 3 Ml Ampul.Neb) 3 ml INHALE RQ4H WHILE AWAKE COUNTS INCLUDE 234 BEDS AT THE [facility] Last Admin: 04/28/23 07:41 Dose: 3 ml Documented By: RADHA Albuterol/Ipratropium (Albuterol/Iprat 2.5/0.5mg 3 Ml Ampul.Neb) 3 ml INHALE Q4H PRN PRN Reason: Wheezing Last Admin: 04/28/23 04:18 Dose: 3 ml Documented By: JESSICA Apixaban (Apixaban 5 Mg Tablet) 5 mg PO BID COUNTS INCLUDE 234 BEDS AT THE [facility] Last Admin: 04/28/23 09:09 Dose: 5 mg Documented By: ERMIAS Benzonatate (Benzonatate 100 Mg Capsule) 200 mg PO TID PRN PRN Reason: Cough Fluticasone Propionate (Fluticasone Propionate Nasal 16 Gm [place]) 2 spray NOSTRIL-B DAILY PRN PRN Reason: Allergy Symptoms Fluticasone/Umeclidinium/Vilanterol (Fluticasone/Umeclidinium/Vilanterol 200/62.5/25 Blst.W.Dev) 1 puff INHALE RDAILY COUNTS INCLUDE 234 BEDS AT THE [facility] Hydroxyzine HCl (Hydroxyzine Hcl 25 Mg Tablet) 25 mg PO BID PRN PRN Reason: anxiety Melatonin (Melatonin 3 Mg Tablet) 6 mg PO BEDTIME PRN PRN Reason: Insomnia Methylprednisolone Sodium Succinate (Methylprednisolone Sod Succ 40 Mg/Ml Vial) 40 mg IVPUSH Q12H COUNTS INCLUDE 234 BEDS AT THE [facility] Ondansetron HCl (Ondansetron Hcl 4 Mg/2 Ml Vial) 4 mg IVPUSH Q8H PRN PRN Reason: Nausea and Vomiting Oseltamivir Phosphate (Oseltamivir Phosphate 75 Mg Capsule) 75 mg PO Q12H COUNTS INCLUDE 234 BEDS AT THE [facility] Stop: 05/02/23 21:01 Last Admin: 04/28/23 09:09 Dose: 75 mg Documented By: ERMIAS Senna/Docusate Sodium (Sennosides/Docusate Sodium Tablet) 1 tab PO BID PRN PRN Reason: Constipation Sodium Chloride (0.9 % Sodium Chloride Flush 3 Ml Syringe) 3 ml IVFLUSH QSHIFT COUNTS INCLUDE 234 BEDS AT THE [facility] Last Admin: 04/28/23 09:09 Dose: 3 ml Documented By: ERMIAS <Le Raimendel - Last Filed: 04/28/23 11:37> Labs CBC & Chem 7: 04/28/23 05:01 04/28/23 05:01 <Le Ernandez - Last Filed: 04/28/23 11:37> Labs: Laboratory Results - last 24 hr 04/27/23 04/27/23 04/27/23 19:09 19:59 20:02 MCV 95.7 MCH 31.9 MCHC 33.3 RDW 12.6 Plt Count 184 D MPV 9.6 Immature Gran % (Auto) 0.3 Neut % (Auto) 84.8 H Lymph % (Auto) 8.9 L Brack[place] % (Auto) 5.4 Eos % (Auto) 0.4 Baso % (Auto) 0.2 Lymph # (Auto) 1.0 L [place]ack[place] # (Auto) 0.6 Eos # (Auto) 0.0 Baso # (Auto) 0.0 Abs Immat Gran (auto) 0.03 Absolute Neuts (auto) 9.2 H Absolute Nucleated RBC 0.000 Nucleated RBC % (auto) 0.0 Smear Tech's Comments VBG pH 7.43 VBG pCO2 50 VBG pO2 37 VBG HCO3 34 H VBG O2 Saturation 60.0 VBG Base Excess 8.5 Anion Gap Estim Creat Clear Calc Estimated GFR Random Glucose Calcium Total Bilirubin Direct Bilirubin AST ALT Alkaline Phosphatase Total Protein Albumin Lipase Influenza Type A (PCR) POSITIVE A Influenza Type B (PCR) NEGATIVE RSV RNA Qual (PCR) NEGATIVE SARS-CoV-2 RNA (RT-PCR) NEGATIVE 04/27/23 04/28/23 20:44 05:01 MCV 97.0 MCH 32.0 MCHC 33.0 RDW 12.8 Plt Count 204 MPV 10.4 Immature Gran % (Auto) 0.5 H Neut % (Auto) 90.4 H Lymph % (Auto) 4.7 L [place]ack[place] % (Auto) 4.4 Eos % (Auto) 0.0 Baso % (Auto) 0.0 Lymph # (Auto) 0.4 L [place] # (Auto) 0.4 Eos # (Auto) 0.0 Baso # (Auto) 0.0 Abs Immat Gran (auto) 0.04 H Absolute Neuts (auto) 7.9 Absolute Nucleated RBC 0.000 Nucleated RBC % (auto) 0.0 Smear Tech's Comments VERIFIED VBG pH VBG pCO2 VBG pO2 VBG HCO3 VBG O2 Saturation VBG Base Excess Anion Gap 11 L 14 Estim Creat Clear Calc 112.0 128.9 Estimated GFR > 60 > 60 Random Glucose 121 H 161 H Calcium 8.7 D 8.8 Total Bilirubin 0.5 Direct Bilirubin 0.2 AST 20 ALT 19 Alkaline Phosphatase 49 Total Protein 6.0 L Albumin 3.8 Lipase 8 Influenza Type A (PCR) Influenza Type B (PCR) RSV RNA Qual (PCR) SARS-CoV-2 RNA (RT-PCR) <Le Ernandez - Last Filed: 04/28/23 11:37> Assessment and Plan (1) Moderate persistent allergic asthma with acute exacerbation: Status: Acute <Le Ernandez - Last Filed: 04/28/23 11:37> (2) Influenza: Status: Acute <Le Ernandez - Last Filed: 04/28/23 11:37> Assessment and Plan: This is a 48-year-old male with pertinent history of chronic hypoxemic respiratory failure due to asthma on oxygen as needed, opioid use disorder on methadone, history of PE on Eliquis admitted for acute on chronic respiratory failure secondary to asthma exacerbation in the setting of influenza. He complains today of a productive cough and chills. Acute on chronic hypoxemic respiratory failure due to acute exacerbation of asthma in the setting of influenza a: - Wean off of high flow oxygen and monitor; maintain SPO2 >92% - Add Mucinex 400mg Q4hrs as needed for congestion and productive cough - Restart home Trelegy QD - Continue DuoNeb - Continue Methylpredinsolone - Continue Tamiflu Opioid use disorder -- on methadone History of PE -- Eliquis DVT prophylaxis: Eliquis Full code Need for inpatient as requires supplemental oxygen and respiratory monitoring not possible in a less acute setting. <Le Ernandez - Last Filed: 04/28/23 11:37> 48-year-old male with pertinent history of chronic hypoxemic respiratory failure due to asthma on oxygen as needed, opioid use disorder on methadone, history of PE on Eliquis admitted for acute on chronic respiratory failure secondary to asthma exacerbation in the setting of influenza. He complains today of a productive cough and chills. Acute on chronic hypoxemic respiratory failure due to acute exacerbation of asthma in the setting of influenza A: - Wean off of high flow oxygen and monitor; maintain SPO2 >92% - Add Mucinex as needed for congestion and productive cough - Restart home Trelegy QD - Continue DuoNeb - Continue Methylpredinsolone - Continue Tamiflu for 5 days Opioid use disorder -- on methadone History of PE -- Eliquis DVT prophylaxis: Eliquis Full code Need for inpatient as requires supplemental oxygen and respiratory monitoring not possible in a less acute setting. <Dequan Oneil MD - Last Filed: 04/28/23 11:53> Quality Stroke Does the patient have a stroke diagnosis?: No <Le Ernandez - Last Filed: 04/28/23 11:37> VTE Prior VTE?: No <Le Ernandez - Last Filed: 04/28/23 11:37> VTE Risk Level:: Medical - moderate - high <Le Ernandez - Last Filed: 04/28/23 11:37> VTE Device Contraindication: Treatment Not Indicated <Le Ernandez - Last Filed: 04/28/23 11:37> VTE Drug Contraindication: N/A - Med Ordered <Le Ernandez - Last Filed: 04/28/23 11:37>
[2023-04-28] MEDS: methylPREDNISolone Sod Succ 40 MG/ML VIAL IVPUSH ×2 (10:04→20:36)
--- NOTE | 2023-04-28 11:14 | MHC.CM.PN ---
Addendum entered by Sophy Braden RN 04/28/23 11:18: Patient will need Lyft home. Original Note: CM met with patient at bedside. Patient is from home w/ significant other, Kristie [phone]. Patient is independent with all care. Uses O2 PRN, via [employer]. Mya from [facility]. PCP: MUNIR Alva No HCP. CM provided education, offered assistance and encouraged completion. Patient declines at this time. DP: Goal is home self care. CM will continue to follow.
--- NOTE | 2023-04-28 11:33 | PC.NURSE ---
Patient is looking for methadone dose, stated he had it with him in the ED and it was taken away, per pharmacy dose has to be verified with Methadone clinic and then can be ordered. Patient is active with [facility] on [facility] [place] in [place] - called multiple times - unable to connect to anyone - msg left for Mery to call back with dose confirmation
[2023-04-28] MEDS: Fluticasone/Umeclidinium/Vilanterol 200/62.5/25 BLST.W.DEV 1 PUFF INHALE (11:43)
[2023-04-28] MEDS: guaiFENesin LA 600 MG TAB.ER.12H PO ×2 (12:32→20:36)
--- NOTE | 2023-04-28 13:02 | HE.PHANOTE ---
RE: methadone Last dose confirmed at [facility] 48mg 04/26/23 and patient given 3 take home bottles
[2023-04-28] MEDS: methADONE HCl 20 MG/2 ML ORAL.CONC 48 MG PO (13:23)
[2023-04-29 02:31] VITALS: BP 150/88; PULSE 86; RESP 18; TEMP 37.1; O2SAT 99
--- NOTE | 2023-04-29 06:53 | PC.NURSE ---
Assumed care of patient at 19:15 (04/28). Pt continues on contact/droplet precautions for +Flu. A&Ox4. Lungs dim. Continues on 2L nc with spo2 maintained mid 90's and above (>92% goal per MD note). Breathing is even and unlabored without distress. Tolerating regular diet. Voids cyu in urinal or standby to bathroom while requiring supplemental o2. Bed alarm on and safety measures in place. See shift assessments and EMAR for full details. Handoff report given 06:45.
[2023-04-29] MEDS: Albuterol/Iprat 2.5/0.5MG 3 ML AMPUL.NEB INHALE (07:36)
[2023-04-29] MEDS: Fluticasone/Umeclidinium/Vilanterol 200/62.5/25 BLST.W.DEV 1 PUFF INHALE (07:36)
[2023-04-29 07:40] VITALS: PULSE 94; RESP 20; O2SAT 98
[2023-04-29 07:54] VITALS: BP 122/77; PULSE 92; RESP 18; TEMP 37.2; O2SAT 96
--- NOTE | 2023-04-29 07:54 | HO.PM.IMPN ---
Subjective Subjective Date of Service: 04/29/23 Interval History: f/u on asthma with acute hypoxic resp failure and highflow Off [place], cough with sputum production, chest pain due to cough and feel congested Physical Exam Vital Signs: Vital Signs: Last Vital Signs Temp 98.7 F 04/29/23 02:31 Pulse 94 04/29/23 07:40 Resp 20 04/29/23 07:40 BP 150/88 H 04/29/23 02:31 Pulse Ox 99 04/29/23 02:31 O2 Del Method Nasal Cannula 04/29/23 02:31 O2 Flow Rate 2 04/29/23 02:31 Oxygen Flow Rate 4 04/27/23 18:53 BMI result Body Mass Index 22.2 Gen: A&O x 3 Lungs: scattered expiratory wheezing and mild rhonchi, nl resp effort Heart: regular rate and rhythm, no murmurs Abd: soft, non-tender, non-distended Ext: no edema Skin: warm/well-perfused Neuro: no focal findings Psych: appropriate affect Objective Data Active Medications Acetaminophen (Acetaminophen 325 Mg Tablet) 650 mg PO Q6H PRN PRN Reason: Pain, Mild (Pain Scale 1-3) Albuterol/Ipratropium (Albuterol/Iprat 2.5/0.5mg 3 Ml Ampul.Neb) 3 ml INHALE RQ4H WHILE AWAKE [facility] Last Admin: 04/29/23 07:36 Dose: 3 ml Documented By: RADHA Albuterol/Ipratropium (Albuterol/Iprat 2.5/0.5mg 3 Ml Ampul.Neb) 3 ml INHALE Q4H PRN PRN Reason: Wheezing Last Admin: 04/28/23 10:28 Dose: 3 ml Documented By: RADHA Apixaban (Apixaban 5 Mg Tablet) 5 mg PO BID [facility] Last Admin: 04/28/23 20:36 Dose: 5 mg Documented By: MITA Benzonatate (Benzonatate 100 Mg Capsule) 200 mg PO TID PRN PRN Reason: Cough Fluticasone Propionate (Fluticasone Propionate Nasal 16 Gm [place]) 2 spray NOSTRIL-B DAILY PRN PRN Reason: Allergy Symptoms Fluticasone/Umeclidinium/Vilanterol (Fluticasone/Umeclidinium/Vilanterol 200/62.5/25 Blst.W.Dev) 1 puff INHALE RDAILY [facility] Last Admin: 04/29/23 07:36 Dose: 1 puff Documented By: RADHA Guaifenesin (Guaifenesin La 600 Mg Tab.Er.12h) 600 mg PO BID [facility] Last Admin: 04/28/23 20:36 Dose: 600 mg Documented By: MITA Hydroxyzine HCl (Hydroxyzine Hcl 25 Mg Tablet) 25 mg PO BID PRN PRN Reason: anxiety Melatonin (Melatonin 3 Mg Tablet) 6 mg PO BEDTIME PRN PRN Reason: Insomnia Methadone HCl (Methadone Hcl 20 Mg/2 Ml Oral.Conc) 48 mg PO DAILY [facility] Last Admin: 04/28/23 13:23 Dose: 48 mg Documented By: ERMIAS Methylprednisolone Sodium Succinate (Methylprednisolone Sod Succ 40 Mg/Ml Vial) 40 mg IVPUSH Q12H [facility] Last Admin: 04/28/23 20:36 Dose: 40 mg Documented By: MITA Ondansetron HCl (Ondansetron Hcl 4 Mg/2 Ml Vial) 4 mg IVPUSH Q8H PRN PRN Reason: Nausea and Vomiting Oseltamivir Phosphate (Oseltamivir Phosphate 75 Mg Capsule) 75 mg PO Q12H [facility] Stop: 05/02/23 21:01 Last Admin: 04/28/23 20:36 Dose: 75 mg Documented By: MITA Senna/Docusate Sodium (Sennosides/Docusate Sodium Tablet) 1 tab PO BID PRN PRN Reason: Constipation Sodium Chloride (0.9 % Sodium Chloride Flush 3 Ml Syringe) 3 ml IVFLUSH QSHIFT [facility] Last Admin: 04/28/23 20:36 Dose: 3 ml Documented By: MITA Labs 04/28/23 05:01 04/28/23 05:01 Assessment and Plan (1) Moderate persistent allergic asthma with acute exacerbation: Status: Acute (2) Polysubstance abuse: Status: Acute (3) Bronchitis: Status: Acute Plan 48-year-old male with pertinent history of chronic hypoxemic respiratory failure due to asthma on oxygen as needed, opioid use disorder on methadone, history of PE on Eliquis admitted for acute on chronic respiratory failure secondary to asthma exacerbation in the setting of influenza. He complains today of a productive cough and chills. Acute on chronic hypoxemic respiratory failure due to acute exacerbation of asthma in the setting of influenza A: - O2 keep sat around 92% - continueMucinex as needed for congestion and productive cough - Trelegy QD - Continue DuoNeb - Continue Methylpredinsolone - Continue Tamiflu for 5 days -Add Doxycyline for superimposed bactereial bronchitis Opioid use disorder--continue methadone History of PE -- continue Eliquis DVT prophylaxis: Eliquis Full code Need for inpatient as requires supplemental oxygen and respiratory monitoring not possible in a less acute setting. Quality Stroke Does the patient have a stroke diagnosis?: No VTE Prior VTE?: No VTE Risk Level:: Medical - moderate - high VTE Device Contraindication: Treatment Not Indicated VTE Drug Contraindication: N/A - Med Ordered
[2023-04-29] MEDS: guaiFENesin LA 600 MG TAB.ER.12H PO ×2 (07:59→20:19)
[2023-04-29] MEDS: Apixaban 5 MG TABLET PO ×2 (07:59→20:20)
[2023-04-29] MEDS: methylPREDNISolone Sod Succ 40 MG/ML VIAL IVPUSH ×2 (07:59→20:19)
[2023-04-29] MEDS: Oseltamivir Phosphate 75 MG CAPSULE PO ×2 (07:59→20:20)
[2023-04-29] MEDS: methADONE HCl 20 MG/2 ML ORAL.CONC 48 MG PO (07:59)
[2023-04-29] MEDS: 0.9 % Sodium Chloride Flush 3 ML SYRINGE IVFLUSH ×3 (08:00→20:20)
[2023-04-29] MEDS: ondansetron HCL 4 MG/2 ML VIAL IVPUSH (08:06)
[2023-04-29] MEDS: Doxycycline Hyclate 100 MG in 0.9 % Sodium Chloride 250 ML 166.67 MG IV ×2 (09:54→20:25)
[2023-04-29 15:54] VITALS: BP 111/65; PULSE 99; RESP 18; TEMP 36.8; O2SAT 92
[2023-04-29 19:16] VITALS: BP 114/70; PULSE 104; RESP 16; TEMP 36.5; O2SAT 93
[2023-04-29] MEDS: hydrOXYzine HCL 25 MG TABLET PO (20:19)
[2023-04-29 23:11] VITALS: BP 110/64; PULSE 82; RESP 16; TEMP 36.6; O2SAT 94
[2023-04-30 07:21] VITALS: BP 108/63; PULSE 85; RESP 16; TEMP 36.5; O2SAT 92
[2023-04-30] MEDS: Fluticasone/Umeclidinium/Vilanterol 200/62.5/25 BLST.W.DEV 1 PUFF INHALE (07:27)
[2023-04-30] MEDS: Albuterol/Iprat 2.5/0.5MG 3 ML AMPUL.NEB INHALE (07:27)
[2023-04-30 07:30] VITALS: PULSE 87; RESP 18; O2SAT 95
[2023-04-30] MEDS: 0.9 % Sodium Chloride Flush 3 ML SYRINGE IVFLUSH ×3 (07:31→19:47)
[2023-04-30] MEDS: Doxycycline Hyclate 100 MG in 0.9 % Sodium Chloride 250 ML 166.67 MG IV ×2 (07:31→19:56)
[2023-04-30] MEDS: methylPREDNISolone Sod Succ 40 MG/ML VIAL IVPUSH ×2 (07:31→18:14)
[2023-04-30] MEDS: Oseltamivir Phosphate 75 MG CAPSULE PO ×2 (08:42→19:47)
[2023-04-30] MEDS: Apixaban 5 MG TABLET PO ×2 (08:42→19:47)
[2023-04-30] MEDS: guaiFENesin LA 600 MG TAB.ER.12H PO ×2 (08:42→19:47)
[2023-04-30] MEDS: methADONE HCl 20 MG/2 ML ORAL.CONC 48 MG PO (08:42)
--- NOTE | 2023-04-30 09:31 | HO.PM.IMPN ---
Subjective Subjective Date of Service: 04/30/23 <Le Cruzantwon - Last Filed: 04/30/23 10:42> 04/30/23 <Dequan Oneil MD - Last Filed: 04/30/23 11:42> Interval History: F/U on acute resp failure d/t asthma exacerbation in setting of influenza A Doing well this morning; reports decreased congestion and no chest pain today with decreased respiratory effort. Productive cough still present. No fever, chills, n/v <Le Cruzantwon - Last Filed: 04/30/23 10:42> Review of Systems Review of Systems: Yes all other systems are reviewed and are negative <Le Cruzantwon - Last Filed: 04/30/23 10:42> Physical Exam Vital Signs: Vital Signs: Last Vital Signs Temp 97.7 F 04/30/23 07:21 Pulse 87 04/30/23 07:30 Resp 18 04/30/23 07:30 BP 108/63 04/30/23 07:21 Pulse Ox 92 04/30/23 07:21 O2 Del Method Room Air 04/30/23 07:21 O2 Flow Rate 2 04/29/23 23:11 Oxygen Flow Rate 4 04/27/23 18:53 BMI result Body Mass Index 22.2 <Le Cruzantwon - Last Filed: 04/30/23 10:42> Gen: A&O x 3, resting comfortably Lungs: scattered expiratory wheezing and mild rhonchi, nl resp effort Heart: regular rate and rhythm, no murmurs Skin: warm/well-perfused Neuro: no focal findings Psych: appropriate affect <Le Raimendel - Last Filed: 04/30/23 10:42> Objective Data Active Medications Acetaminophen (Acetaminophen 325 Mg Tablet) 650 mg PO Q6H PRN PRN Reason: Pain, Mild (Pain Scale 1-3) Albuterol/Ipratropium (Albuterol/Iprat 2.5/0.5mg 3 Ml Ampul.Neb) 3 ml INHALE RQ4H WHILE AWAKE [facility] Last Admin: 04/30/23 07:27 Dose: 3 ml Documented By: CHICO Albuterol/Ipratropium (Albuterol/Iprat 2.5/0.5mg 3 Ml Ampul.Neb) 3 ml INHALE Q4H PRN PRN Reason: Wheezing Last Admin: 04/28/23 10:28 Dose: 3 ml Documented By: RADHA Apixaban (Apixaban 5 Mg Tablet) 5 mg PO BID [facility] Last Admin: 04/30/23 08:42 Dose: 5 mg Documented By: LEILA Benzonatate (Benzonatate 100 Mg Capsule) 200 mg PO TID PRN PRN Reason: Cough Fluticasone Propionate (Fluticasone Propionate Nasal 16 Gm [place]) 2 spray NOSTRIL-B DAILY PRN PRN Reason: Allergy Symptoms Fluticasone/Umeclidinium/Vilanterol (Fluticasone/Umeclidinium/Vilanterol 200/62.5/25 Blst.W.Dev) 1 puff INHALE RDAILY [facility] Last Admin: 04/30/23 07:27 Dose: 1 puff Documented By: CHICO Guaifenesin (Guaifenesin [place] 600 Mg Tab.Er.12h) 600 mg PO BID [facility] Last Admin: 04/30/23 08:42 Dose: 600 mg Documented By: LEILA Hydroxyzine HCl (Hydroxyzine Hcl 25 Mg Tablet) 25 mg PO BID PRN PRN Reason: anxiety Last Admin: 04/29/23 20:19 Dose: 25 mg Documented By: JANESSA Doxycycline Hyclate 100 mg/ (Sodium Chloride) 250 mls @ 166.67 mls/hr IV Q12H [facility] Last Infusion: 04/30/23 09:17 Dose: Infused Documented By: MELISSA Melatonin (Melatonin 3 Mg Tablet) 6 mg PO BEDTIME PRN PRN Reason: Insomnia Methadone HCl (Methadone Hcl 20 Mg/2 Ml Oral.Conc) 48 mg PO DAILY [facility] Last Admin: 04/30/23 08:42 Dose: 48 mg Documented By: LEILA Methylprednisolone Sodium Succinate (Methylprednisolone Sod Succ 40 Mg/Ml Vial) 40 mg IVPUSH Q12H [facility] Last Admin: 04/30/23 07:31 Dose: 40 mg Documented By: MELISSA Ondansetron HCl (Ondansetron Hcl 4 Mg/2 Ml Vial) 4 mg IVPUSH Q8H PRN PRN Reason: Nausea and Vomiting Last Admin: 04/29/23 08:06 Dose: 4 mg Documented By: DOBRODemario Oseltamivir Phosphate (Oseltamivir Phosphate 75 Mg Capsule) 75 mg PO Q12H [facility] Stop: 05/02/23 21:01 Last Admin: 04/30/23 08:42 Dose: 75 mg Documented By: LEILA Senna/Docusate Sodium (Sennosides/Docusate Sodium Tablet) 1 tab PO BID PRN PRN Reason: Constipation Sodium Chloride (0.9 % Sodium Chloride Flush 3 Ml Syringe) 3 ml IVFLUSH QSHIFT [facility] Last Admin: 04/30/23 07:31 Dose: 3 ml Documented By: MELISSA <Le Cruzantwon - Last Filed: 04/30/23 10:42> Labs CBC & Chem 7: 04/28/23 05:01 04/28/23 05:01 <Le Kiddt Nancyantwon - Last Filed: 04/30/23 10:42> Assessment and Plan (1) Moderate persistent allergic asthma with acute exacerbation: Status: Acute <Le Cruzantwon - Last Filed: 04/30/23 10:42> (2) Polysubstance abuse: Status: Acute <Le Curzantwon - Last Filed: 04/30/23 10:42> (3) Bronchitis: Status: Acute <Le Raimendel - Last Filed: 04/30/23 10:42> Assessment and Plan: 48-year-old male with pertinent history of chronic hypoxemic respiratory failure due to asthma on oxygen as needed, opioid use disorder on methadone, history of PE on Eliquis admitted for acute on chronic respiratory failure secondary to asthma exacerbation in the setting of influenza. He complains today of a productive cough but no fever, chills, or chest pain. Acute on chronic hypoxemic respiratory failure due to acute exacerbation of asthma in the setting of influenza A: - Attempt trial of respiration on room air and monitor. - continue Mucinex as needed for congestion and productive cough - Trelegy QD - Continue DuoNeb - Continue Methylpredinsolone - Continue Tamiflu for 5 days - Continue Doxycyline for superimposed bacterial bronchitis Opioid use disorder--continue methadone History of PE -- continue Eliquis DVT prophylaxis: Eliquis If stable on room air consider discharge tomorrow with PO steroids. Full code Need for inpatient as requires supplemental oxygen and respiratory monitoring not possible in a less acute setting. <Le Ernandez - Last Filed: 04/30/23 10:42> 48-year-old male with pertinent history of chronic hypoxemic respiratory failure due to asthma on oxygen as needed, opioid use disorder on methadone, history of PE on Eliquis admitted for acute on chronic respiratory failure secondary to asthma exacerbation in the setting of influenza. He complains today of a productive cough but no fever, chills, or chest pain. Acute on chronic hypoxemic respiratory failure due to acute exacerbation of severe peristent asthma in the setting of influenza A: - Attempt trial of respiration on room air and monitor. - continue Mucinex as needed for congestion and productive cough - Trelegy QD - Continue DuoNeb - Continue Methylpredinsolone - Continue Tamiflu for 5 days - Continue Doxycyline for superimposed bacterial bronchitis for 5 days Opioid use disorder--continue methadone History of PE -- continue Eliquis DVT prophylaxis: Eliquis If stable on room air consider discharge tomorrow with PO steroids, consider home O2 eval Full code Need for inpatient as requires supplemental oxygen and respiratory monitoring not possible in a less acute setting. <Dequan Oneil MD - Last Filed: 04/30/23 11:42> Quality Stroke Does the patient have a stroke diagnosis?: No <Le Ernandez - Last Filed: 04/30/23 10:42> VTE Prior VTE?: No <Le Ernandez - Last Filed: 04/30/23 10:42> VTE Risk Level:: Medical - moderate - high <Le Ernandez - Last Filed: 04/30/23 10:42> VTE Device Contraindication: Treatment Not Indicated <Le Ernandez - Last Filed: 04/30/23 10:42> VTE Drug Contraindication: N/A - Med Ordered <Le Ernandez - Last Filed: 04/30/23 10:42>
[2023-04-30 14:57] VITALS: BP 117/67; PULSE 86; RESP 28; TEMP 36.8; O2SAT 93
[2023-04-30 19:14] VITALS: BP 122/74; PULSE 81; RESP 18; TEMP 36.7; O2SAT 95
[2023-04-30] MEDS: hydrOXYzine HCL 25 MG TABLET PO (19:47)
[2023-05-01 03:48] VITALS: BP 137/72; PULSE 78; RESP 17; TEMP 36.7; O2SAT 92
[2023-05-01] MEDS: methylPREDNISolone Sod Succ 40 MG/ML VIAL IVPUSH (05:47)
[2023-05-01 07:01] VITALS: BP 129/78; PULSE 80; RESP 20; TEMP 36.6; O2SAT 95
[2023-05-01] MEDS: Albuterol/Iprat 2.5/0.5MG 3 ML AMPUL.NEB INHALE ×2 (07:26→11:13)
[2023-05-01] MEDS: Fluticasone/Umeclidinium/Vilanterol 200/62.5/25 BLST.W.DEV 1 PUFF INHALE (07:26)
[2023-05-01 07:28] VITALS: PULSE 80; RESP 20
[2023-05-01] MEDS: Oseltamivir Phosphate 75 MG CAPSULE PO (07:58)
[2023-05-01] MEDS: Apixaban 5 MG TABLET PO (07:59)
[2023-05-01] MEDS: Doxycycline Hyclate 100 MG in 0.9 % Sodium Chloride 250 ML 166.67 MG IV (07:59)
[2023-05-01] MEDS: 0.9 % Sodium Chloride Flush 3 ML SYRINGE IVFLUSH (08:00)
[2023-05-01] MEDS: methADONE HCl 20 MG/2 ML ORAL.CONC 48 MG PO (08:00)
[2023-05-01] MEDS: guaiFENesin LA 600 MG TAB.ER.12H PO (08:15)
[2023-05-01 10:29] VITALS: PULSE 106; O2SAT 94
[2023-05-01 11:14] VITALS: PULSE 80; O2SAT 94
--- NOTE | 2023-05-01 12:34 | MHC.CM.PN ---
pt dcd home no servies needed
--- NOTE | 2023-05-01 12:58 | P.DS_ITS ---
DS: Providers Provider Date of Service: 05/01/23 Date of admission: 04/27/23 20:43 Date of discharge: 05/01/23 [facility] Attending physician on discharge: Rene Anderson Discharging clinician: Rene Anderson DS: Diagnosis Discharge Diagnosis (1) Moderate persistent allergic asthma with acute exacerbation: Status: Acute (2) Polysubstance abuse: Status: Acute (3) Bronchitis: Status: Acute DS: Summary Hospital Course Hospital Course: 48-year-old male with pertinent history of chronic hypoxemic respiratory failure due to asthma on oxygen as needed, opioid use disorder on methadone, history of PE on Eliquis presents to the emergency department for evaluation of dyspnea and wheezing. Patient states he was recently admitted to the hospital for asthma exacerbation and was fine when he went home. He started having symptoms 1 day prior to presentation. It included nonproductive cough and wheezing. Also has been having dyspnea which is worse with exertion. Endorses associated fevers and chills. His partner is sick at home. No palpitations, orthopnea, PND, a bdominal pain, changes in urinary or bowel habits. As per EMS, patient was found to be saturating in the 70s and was given IV Solu-Medrol 125 mg and DuoNeb. In the emergency department, patient with continued wheezing and requiring supplemental oxygen. Hospital course: Patient was admitted for acute respiratory failure secondary to influenza a and asthma exacerbation(moderate persistent asthma exacerbation): Started on nebs, steroids, Tamiflu seems to be improved significantly. going home with p.o. antibiotics and Tamiflu. Complete doxycycline 100 mg by mouth twice daily for 6days and tamiflu 75 mg by mouth twice daily ( 3 more doses).complete prednisone 40mg po daily for 4 more days. Patient did not qualify for home oxygen. plan: Complete doxycycline 100 mg by mouth twice daily for 6days and tamiflu 75 mg by mouth twice daily ( 3 more doses).complete prednisone 40mg po daily for 4 more days. Above management discussed with the patient detail length he understand and in agreement with the above plan, time spent 50 minute. Time Attestation Discharge coordination time: Greater than 30 minutes Quality: Safe Use of Opioids Does Pt have an Active Cancer Diagnosis on the Problem List?: No Quality: Stroke Does the patient have a stroke diagnosis?: No Physical Exam Vital Signs: Vital Signs: Last Vital Signs Temp 97.8 F 05/01/23 07:01 Pulse 80 05/01/23 11:14 Resp 20 05/01/23 07:28 BP 129/78 05/01/23 07:01 Pulse Ox 95 05/01/23 07:01 O2 Del Method Nasal Cannula 05/01/23 07:01 O2 Flow Rate 2 05/01/23 07:01 Oxygen Flow Rate 4 04/27/23 18:53 BMI result Body Mass Index 22.2 Gen: A&O x 3, resting comfortably Lungs: air entry fair Heart: regular rate and rhythm, no murmurs Skin: warm/well-perfused Neuro: no focal findings Psych: appropriate affect Discharge Plan Discharge Anticipated Discharge Date/Time: 05/01/23 11:55 Patient Disposition: Home, Self-Care Discharge Diagnosis: acute resp failure d/t asthma exacerbation in setting of influenza A Referrals: Kishor Barrett, [facility] [Primary Care Provider] - 1 Week Discharge Medications: New doxycycline monohydrate 100 mg Capsule 100 mg PO Q12H Qty: 14 0RF oseltamivir [Tamiflu] 75 mg Capsule 75 mg PO Q12H Qty: 3 0RF Continued (DME) nebulizers Misc See Rx Instructions .Route Qty: 1 0RF Rx Instructions: Use every 4 hours as needed for SOB, wheezing Xolair 150 mg recon soln 225 mg subcut Q2W 28 Days Qty: 3 6RF Trelegy Ellipta 200-62.5-25 mcg blister with device 1 inh inhalation DAILY 30 Days Qty: 1 6RF Eliquis 5 mg tablet 5 mg PO BID Qty: 120 3RF hydroxyzine HCl 25 mg tablet 25 mg PO BID PRN (Reason: anxiety) 30 Days Qty: 60 0RF Rx Instructions: Future refills considered AFTER blood work completed albuterol sulfate [Ventolin HFA] 90 mcg/actuation HFA aerosol inhaler 2 puff PO Q4-6H PRN (Reason: for wheezing) Qty: 18 2RF albuterol sulfate 2.5 mg /3 mL (0.083 %) solution for nebulization 2.5 mg inhalation Q4-6H PRN (Reason: for wheezing) Qty: 75 3RF fluticasone propionate [Allergy Relief (fluticasone)] 50 mcg/actuation spray,suspension 2 spray intranasal DAILY PRN (Reason: Allergy Symptoms) Rx Instructions: administer into each nostril Future refills considered AFTER blood work completed methadone [Methadose] 10 mg/mL Concentrate 48 mg PO DAILY Trelegy Ellipta 200-62.5-25 mcg blister with device 1 ea INHALATION DAILY prednisone 10 mg tablet See Rx Instructions .ROUTE .COMPLEX Qty: 21 0RF Rx Instructions: 40 mg (4 tabs) daily x 2 days, then 30 mg (3 tabs) daily x 2 days, then 20 mg (2 tabs) daily x 2 days, then 10 mg (1 tab) daily x 2 days, then 5 mg (half tab) daily x 2 days sennosides-docusate sodium [Senexon-S] 8.6-50 mg tablet 1 tab-cap PO BID PRN (Reason: Constipation) Discharge Orders: Discharge Order (Routine); Ordered 05/01/23 Ordered By: Rene Anderson Diet: Advance to usual diet Activity on Discharge: As tolerated Stand Alone Forms: Patient Portal Discharge page Care Plan Goals: Patient was admitted for acute respiratory failure secondary to influenza a and asthma exacerbation: Started on nebs, steroids, Tamiflu seems to be improved significantly. going home with p.o. antibiotics and Tamiflu. Complete doxycycline 100 mg by mouth twice daily for 6days and tamiflu 75 mg by mouth twice daily ( 3 more doses).complete prednisone 40mg po daily for 4 more days. Patient did not qualify for home oxygen. Health Concerns: As above. Plan of Treatment: As above. Assessment: As above.
[2023-05-01] MEDS: predniSONE 20 MG TABLET 40 MG PO (14:07)
== END 2023-05-01 15:19 | disposition home or self-care (01) | DRG 133 ==
LOC: HO.ED 20:41 → HO.EDOVER 21:17 → HO.S3 23:06
PROVIDERS: Admitting Provider Student in an Organized Health Care Education/Training Program; Emergency Provider Emergency Medicine; PCP Nurse Practitioner Family; Visit Provider Internal Medicine
DX: J96.21 Acute and chronic respiratory failure with hypoxia (principal); Z99.81 Dependence on supplemental oxygen; J45.41 Moderate persistent asthma with (acute) exacerbation; J10.1 Influenza due to other identified influenza virus with other respiratory manifestations; Z20.822 Contact with and (suspected) exposure to COVID-19; F11.20 Opioid dependence, uncomplicated; Z86.711 Personal history of pulmonary embolism; Z79.01 Long term (current) use of anticoagulants; Z87.891 Personal history of nicotine dependence; Z79.899 Other long term (current) drug therapy
CPT/HCPCS: 0241U; 36415; 71045; 80048; 80076; 82803; 83690; 84484; 85025; 94640; 99285; J2405; J2920; J3475

== ENCOUNTER → 2023-04-27 20:43 | Outpatient (BNV) | payer OTHER, SELFPAY | PROVIDERS: Admitting Provider Student in an Organized Health Care Education/Training Program; Emergency Provider Emergency Medicine; Visit Provider Student in an Organized Health Care Education/Training Program | DX: J45.41 Moderate persistent asthma with (acute) exacerbation (principal); F19.10 Other psychoactive substance abuse, uncomplicated; J40 Bronchitis, not specified as acute or chronic | CPT/HCPCS: 99222; 99232; 99233; 99239 ==

== ENCOUNTER 2023-06-22 18:03 | Inpatient (IN) | payer OTHER, SELFPAY ==
[2023-06-22] VITALS (9 sets, daily range): BP systolic 89–189; BP diastolic 57–112; PULSE 101–118; RESP 16–35; TEMP 36.6; O2SAT 70–100; BMI 23.4
--- NOTE | ~2023-06-22 | XR_ITS ---
EXAMINATION: XR CHEST CLINICAL INFORMATION: Shortness of breath. COMPARISON: Chest radiograph 04/27/2023. TECHNIQUE: Frontal view of the chest was obtained. FINDINGS: Normal appearance of the cardiomediastinal silhouette. Again noted mild interstitial prominence with air trapping, not significantly changed. No focal consolidation, pleural effusion or pneumothorax. No evidence of pulmonary edema. Limited evaluation of the right apex due to overlying external hardware with an equivocal approximately 0.8 cm nodule projecting in between the posterior fourth and fifth ribs, new compared to 04/27/2023. No acute osseous findings. XR/XR chest 1V IMPRESSION: 1. Mild chronic interstitial thickening with air trapping. 2. No focal consolidation or pleural effusion. 3. Limited evaluation of the right apex due to overlying external device. There is an equivocal approximately 0.8 cm nodule projecting in between the posterior fourth and fifth ribs, new compared to 04/27/2023; recommend repeat radiograph with removal of overlying devices.
--- NOTE | ~2023-06-22 | XR_ITS ---
EXAMINATION: XR CHEST CLINICAL INFORMATION: Shortness of breath. COMPARISON: 08/22/2023. TECHNIQUE: Frontal view of the chest was obtained. FINDINGS: The cardiomediastinal silhouette is within normal limits and stable. The lung fountain appear to be hyperinflated. There is no focal lung consolidation or pleural effusion. The bony structures and soft tissues are unremarkable. XR/XR chest 1V IMPRESSION: 1. No acute cardiopulmonary disease. 2. Hyperinflated lung fountain.
--- NOTE | 2023-06-22 18:10 | ED.SOB ---
HPI - SOB/Dyspnea General Chief Complaint: Dyspnea Stated Complaint: SOB, COPD, low O2 sat Time Seen by Provider: 06/22/23 18:08 Source: patient Mode of arrival: EMS Limitations: no limitations History of Present Illness HPI Narrative: Patient history of severe allergic asthma, PE on Eliquis, cocaine and heroin use on oxygen as needed pain increased short of breath for last 1 week out of his oxygen when EMS reached patient was confused altered sensorium received 2 DuoNeb treatment and IV Solu-Medrol and oxygen on arrival patient is still tachypneic tripoding saturating 82% placed on BiPAP patient used 1 bag of heroin yesterday Related Data Home Medications Medication Instructions Recorded Confirmed sennosides 8.6 mg-docusate sodium 1 tab-cap PO BID PRN Constipation 08/29/22 04/27/23 50 mg tablet (Senexon-S) fluticasone propionate 50 2 spray intranasal DAILY PRN 04/18/23 04/27/23 mcg/actuation nasal Allergy Symptoms spray,suspension (Allergy Relief (fluticasone)) methadone 10 mg/mL oral 48 mg PO DAILY 04/18/23 04/28/23 concentrate (Methadose) Previous Rx's Medication Instructions Recorded nebulizers #1 ea 11/26/20 omalizumab 150 mg subcutaneous 225 mg subcut Q2W 28 days #3 ea 01/11/22 solution (Xolair) fluticasone fur. 200 mcg-umeclid 1 inh inhalation DAILY 30 days #1 10/04/22 62.5 mcg-vilant 25 mcg ea inhalat.powder (Trelegy Ellipta) apixaban 5 mg tablet (Eliquis) 5 mg PO BID #120 tabs 01/04/23 hydroxyzine HCl 25 mg tablet 25 mg PO BID PRN anxiety 30 days 01/04/23 #60 tabs prednisone 10 mg tablet See Rx Instructions .Route 04/20/23 .COMPLEX #21 tabs doxycycline monohydrate 100 mg 100 mg PO Q12H #14 caps 05/01/23 capsule oseltamivir 75 mg capsule (Tamiflu) 75 mg PO Q12H #3 caps 05/01/23 prednisone 20 mg tablet 40 mg (2 x 20 mg) PO DAILY #8 tabs 05/01/23 fluticasone fur. 200 mcg-umeclid 1 ea PO DAILY #60 ea 05/09/23 62.5 mcg-vilant 25 mcg inhalat.powder (Trelegy Ellipta) Ventolin HFA 90 mcg/actuation 2 puff PO Q4-6H PRN for wheezing 05/29/23 aerosol inhaler (albuterol sulfate) #18 ea albuterol sulfate 2.5 mg/3 mL 2.5 mg (3 mL) inhalation Q4-6H PRN 06/18/23 (0.083 %) solution for nebulization for wheezing #75 mL Allergies Allergy/AdvReac Type Severity Reaction Status Date / Time walnut Allergy Unknown SWELLING Verified 06/22/23 18:13 buprenorphine [From Suboxone] Allergy swelling Verified 06/22/23 18:13 in his hands and rash naloxone [From Suboxone] Allergy swelling Verified 06/22/23 18:13 in his hands and rash NSAIDS/ASA Allergy Unknown unknown Uncoded 08/29/22 09:32 walnuts Allergy Unknown anaphylaxis Uncoded 08/29/22 09:32 Review of Systems Review of Systems: Yes all other systems are reviewed and are negative PMFSH Past Medical History Medical History Moderate persistent asthma with exacerbation Opiate abuse, episodic Left against medical advice Lung problems from crack cocaine Chronic lung disease Asthma Pulmonary emboli Family History Family History Other Family history non-contributory Social History Social History Household Members: Significant Other Housing: House Do you presently have visiting nurse or other home services: No Unable to assess alcohol history related to: Unable to respond Alcohol intake: never Patient Tobacco Use Status: Former Tobacco user Tobacco use type: Cigarette Cigarettes Per Day: 2 e-Cigarette/Vaping Use: Never Used Second Hand Smoke Exposure: No Use of substances other than those prescribed or required for medical reasons: Unable to respond Substance Use Type: Heroin Advance Directives: No Advance Directives Information Provided: No service: No Current occupational status: unemployed Cognitive needs: No Hearing needs: No Vision needs: No Physical Exam Vital Signs: Vital Signs: Last Vital Signs Temp 97.8 F 06/22/23 19:41 Pulse 105 H 03/15/24 22:38 Resp 16 06/23/23 01:55 BP 111/65 06/22/23 22:38 Pulse Ox 93 06/22/23 22:38 O2 Del Method BiPAP 06/22/23 22:38 O2 Flow Rate 4 06/22/23 20:52 Oxygen Flow Rate 15 06/22/23 18:10 BMI result Body Mass Index 23.4 Appearance: Alert. Oriented X3. Severe distress Eyes: PERRLA, ENT: Pharynx normal. Oral Mucosa moist Neck: Normal inspection. Neck supple. CVS: Normal heart rate and rhythm. Pulses normal. Respiratory: No respiratory distress. Equal air entry bilateral, prolonged expiration with wheezing Abdomen: Soft and nontender. Bowel sounds are present, Skin: Skin warm and dry. Normal skin color. Normal skin turgor. Extremities: No lower extremity edema. No calf tenderness Neuro: Oriented X 3. No motor deficit. Course Reevaluation(s) Reevaluation #1: Patient with severe status asthmaticus with history of same in the past tripoding on arrival already received IV steroids started on continuous nebulizing treatment based on BiPAP saturating 96% more relaxed at this time elevated lactic acid level and respiratory acidosis Time: 18:25 Medications Administered Discontinued Medications Generic Name Dose Route Start Last Admin Trade Name Freq PRN Reason Stop Dose Admin Albuterol Sulfate 7.5 mg/ 10 mg 06/22/23 20:22 06/22/23 20:27 Albuterol Sulfate 2.5 mg INHALE 06/22/23 20:23 10 mg ONCE ONE Administration Albuterol Sulfate 7.5 mg/ 0 mg 06/22/23 18:20 06/22/23 18:24 Albuterol/Ipratropium 3 ml INHALE 06/22/23 18:21 1 each ONCE ONE Administration Albuterol Sulfate 7.5 mg/ 0 mg 06/22/23 21:34 06/22/23 21:41 Albuterol/Ipratropium 3 ml INHALE 06/22/23 21:35 10 each ONCE ONE Administration Dexamethasone Sodium Phosphate 10 mg 06/23/23 01:18 06/23/23 01:30 Dexamethasone Sod Phosphate 10 Mg/Ml Vial IVPUSH 06/23/23 01:19 10 mg ONCE ONE Administration Sodium Chloride 1,000 mls @ 999 mls/hr 06/22/23 18:11 06/22/23 19:57 Ns IV 06/22/23 19:11 Infused .Q1H1M ONE Infusion Magnesium Sulfate 2 gm in 50 mls @ 150 mls/hr 06/22/23 18:11 06/22/23 18:40 Magnesium Sulfate/H2o IV 06/22/23 18:30 Infused ONCE ONE Infusion Ceftriaxone Sodium 1 gm/ 50 mls @ 100 mls/hr 06/22/23 18:48 06/22/23 20:23 Sodium Chloride IV 06/22/23 19:17 Infused ONCE ONE Infusion Sodium Chloride 1,000 mls @ 999 mls/hr 06/22/23 20:03 06/22/23 22:38 Ns IV 06/22/23 21:03 Infused .Q1H1M ONE Infusion Lorazepam 1 mg 06/23/23 01:01 06/23/23 01:30 Lorazepam 2 Mg/Ml Vial IVPUSH 06/23/23 01:02 1 mg ONCE ONE Administration Medical Decision Making Medical Decision Making [facility] Narrative: Patient with chronic lung disease with asthma with significant acute hypoxemic respiratory failure with hypercapnia placed on BiPAP still pH is 7.23 with pCO2 of 56 received multiple nebulizing treatment and steroids along with magnesium no ICU bed at this time will also patient in the ER continue to use BiPAP recheck in a.m. Differential Diagnosis Differential Diagnoses: The differential diagnosis associated with the presentation includes Pneumonia/status asthmaticus/COPD/chronic lung disease Admission/Observation Consideration of admission/observation: Escalation of care including admission/observation considered Lab Data [facility] Lab Attestation statement: I reviewed the patient's lab results. 06/22/23 18:15 06/22/23 18:15 Labs: Lab Results 06/22/23 06/22/23 06/22/23 Range/Units 18:09 18:15 18:21 WBC 10.3 (4.8-10.8) X10*3/uL RBC 4.30 L (4.60-5.80) X10*6/uL Hgb 13.4 L (14.0-18.0) g/dl Hct 41.7 L (42.0-52.0) % MCV 97.0 (80.0-98.0) fL MCH 31.2 (27.0-33.0) pg MCHC 32.1 (31.0-36.0) g/dl RDW 12.9 (11.0-16.0) % Plt Count 354 D (160-400) X10*3/uL MPV 9.3 L (9.4-12.4) fL Immature Gran % (Auto) 0.3 (0.0-0.4) % Neut % (Auto) 52.2 (45-73) % Lymph % (Auto) 37.8 (20-40) % [place] % (Auto) 7.0 (2-11) % Eos % (Auto) 2.1 (0-4) % Baso % (Auto) 0.6 (0-2) % Lymph # (Auto) 3.9 (1.2-4.9) X10*3/uL [place] # (Auto) 0.7 (0.1-1.2) X10*3/uL Eos # (Auto) 0.2 (0.0-0.4) X10*3/uL Baso # (Auto) 0.1 (0.0-0.2) X10*3/uL Abs Immat Gran (auto) 0.03 (0.00-0.03) X10*3/uL Absolute Neuts (auto) 5.4 (2.0-8.3) x10*3/uL Absolute Nucleated RBC 0.000 (0.0-0.012) X10*3/uL Nucleated RBC % (auto) 0.0 (0.0-0.2) /100WBC Hold Purple Top SEE NOTE Hold Blue Top SEE NOTE VBG pH 6.99 L* (7.32-7.43) VBG pCO2 102 mmHg VBG pO2 59 mmHg VBG HCO3 25 (22-26) mmol/L VBG O2 Saturation 67.0 % VBG Base Excess -8.9 mmol/L Sodium 145 (135-145) mmol/L Potassium 4.5 (3.3-5.1) mmol/L Chloride 107 (96-108) mmol/L Carbon Dioxide 28 (22-29) mmol/L Anion Gap 15 (12-20) BUN 12 (9-16) mg/dL Creatinine 1.14 (0.5-1.4) mg/dL Estim Creat Clear Calc 73.0 Estimated GFR > 60 POC Glucose 158 H (60-115) mg/dL Random Glucose 177 H (60-115) mg/dL Lactic Acid 3.9 H* (0.5-2.0) mmol/L Lactic Acid F/U @ 2Hr (0.5-2.0) mmol/L Lactic Acid F/U @ 4Hr (0.5-2.0) mmol/L Calcium 9.3 (8.4-10.2) mg/dL Total Bilirubin 0.5 (0.0-1.0) mg/dL AST 18 (5-37) U/L ALT 20 (0-40) U/L Alkaline Phosphatase 91 (39-117) U/L Total Protein 7.1 (6.5-8.0) g/dL Albumin 4.2 (3.5-5.0) g/dL Influenza Type A (PCR) (Negative) Influenza Type B (PCR) (Negative) RSV RNA Qual (PCR) (Negative) SARS-CoV-2 RNA (RT-PCR) (Negative) 06/22/23 06/22/23 06/23/23 Range/Units 21:22 21:24 00:53 WBC (4.8-10.8) X10*3/uL RBC (4.60-5.80) X10*6/uL Hgb (14.0-18.0) g/dl Hct (42.0-52.0) % MCV (80.0-98.0) fL MCH (27.0-33.0) pg MCHC (31.0-36.0) g/dl RDW (11.0-16.0) % Plt Count (160-400) X10*3/uL MPV (9.4-12.4) fL Immature Gran % (Auto) (0.0-0.4) % Neut % (Auto) (45-73) % Lymph % (Auto) (20-40) % [place] % (Auto) (2-11) % Eos % (Auto) (0-4) % Baso % (Auto) (0-2) % Lymph # (Auto) (1.2-4.9) X10*3/uL [place] # (Auto) (0.1-1.2) X10*3/uL Eos # (Auto) (0.0-0.4) X10*3/uL Baso # (Auto) (0.0-0.2) X10*3/uL Abs Immat Gran (auto) (0.00-0.03) X10*3/uL Absolute Neuts (auto) (2.0-8.3) x10*3/uL Absolute Nucleated RBC (0.0-0.012) X10*3/uL Nucleated RBC % (auto) (0.0-0.2) /100WBC Hold Purple Top Hold Blue Top VBG pH 7.29 L (7.32-7.43) VBG pCO2 49 mmHg VBG pO2 44 mmHg VBG HCO3 24 (22-26) mmol/L VBG O2 Saturation 66.0 % VBG Base Excess -2.8 mmol/L Sodium (135-145) mmol/L Potassium (3.3-5.1) mmol/L Chloride (96-108) mmol/L Carbon Dioxide (22-29) mmol/L Anion Gap (12-20) BUN (9-16) mg/dL Creatinine (0.5-1.4) mg/dL Estim Creat Clear Calc Estimated GFR POC Glucose (60-115) mg/dL Random Glucose (60-115) mg/dL Lactic Acid (0.5-2.0) mmol/L Lactic Acid F/U @ 2Hr 3.8 H* (0.5-2.0) mmol/L Lactic Acid F/U @ 4Hr 5.6 H* (0.5-2.0) mmol/L Calcium (8.4-10.2) mg/dL Total Bilirubin (0.0-1.0) mg/dL AST (5-37) U/L ALT (0-40) U/L Alkaline Phosphatase (39-117) U/L Total Protein (6.5-8.0) g/dL Albumin (3.5-5.0) g/dL Influenza Type A (PCR) NEGATIVE (Negative) Influenza Type B (PCR) NEGATIVE (Negative) RSV RNA Qual (PCR) NEGATIVE (Negative) SARS-CoV-2 RNA (RT-PCR) NEGATIVE (Negative) 06/23/23 Range/Units 00:56 WBC (4.8-10.8) X10*3/uL RBC (4.60-5.80) X10*6/uL Hgb (14.0-18.0) g/dl Hct (42.0-52.0) % MCV (80.0-98.0) fL MCH (27.0-33.0) pg MCHC (31.0-36.0) g/dl RDW (11.0-16.0) % Plt Count (160-400) X10*3/uL MPV (9.4-12.4) fL Immature Gran % (Auto) (0.0-0.4) % Neut % (Auto) (45-73) % Lymph % (Auto) (20-40) % [place] % (Auto) (2-11) % Eos % (Auto) (0-4) % Baso % (Auto) (0-2) % Lymph # (Auto) (1.2-4.9) X10*3/uL [place] # (Auto) (0.1-1.2) X10*3/uL Eos # (Auto) (0.0-0.4) X10*3/uL Baso # (Auto) (0.0-0.2) X10*3/uL Abs Immat Gran (auto) (0.00-0.03) X10*3/uL Absolute Neuts (auto) (2.0-8.3) x10*3/uL Absolute Nucleated RBC (0.0-0.012) X10*3/uL Nucleated RBC % (auto) (0.0-0.2) /100WBC Hold Purple Top Hold Blue Top VBG pH 7.23 L (7.32-7.43) VBG pCO2 56 mmHg VBG pO2 38 mmHg VBG HCO3 24 (22-26) mmol/L VBG O2 Saturation 50.0 % VBG Base Excess -4.1 mmol/L Sodium (135-145) mmol/L Potassium (3.3-5.1) mmol/L Chloride (96-108) mmol/L Carbon Dioxide (22-29) mmol/L Anion Gap (12-20) BUN (9-16) mg/dL Creatinine (0.5-1.4) mg/dL Estim Creat Clear Calc Estimated GFR POC Glucose (60-115) mg/dL Random Glucose (60-115) mg/dL Lactic Acid (0.5-2.0) mmol/L Lactic Acid F/U @ 2Hr (0.5-2.0) mmol/L Lactic Acid F/U @ 4Hr (0.5-2.0) mmol/L Calcium (8.4-10.2) mg/dL Total Bilirubin (0.0-1.0) mg/dL AST (5-37) U/L ALT (0-40) U/L Alkaline Phosphatase (39-117) U/L Total Protein (6.5-8.0) g/dL Albumin (3.5-5.0) g/dL Influenza Type A (PCR) (Negative) Influenza Type B (PCR) (Negative) RSV RNA Qual (PCR) (Negative) SARS-CoV-2 RNA (RT-PCR) (Negative) ABG Data Attestation ABG: I personally reviewed and interpreted this ABG as follows: Interpretation: Hypoxemic hypercapnic respiratory acidosis Independent Interpretation I performed an independent interpretation of an: EKG and Plain X-Ray Radiology Impression Discussion of test interpretation with radiology: I have reviewed the radiologist's reading. Critical Care Time Critical Care Time Critical Care Time: Yes Total Critical Care Time: 60 Attestation: The patient was critically ill with a high probability of imminent or life threatening deterioration. I spent greater than 70???minutes of discontinuous time evaluating the patient,delivering critical care at the bedside, discussing and evaluating pertinent data with consultants. Critical care time does not include time spent performing separately billable procedures or teaching. Total time spent performing critical care was 60???minutes. Discharge Plan Discharge Clinical Impression: Acute on chronic respiratory failure with hypoxia and hypercapnia, Allergic asthma with status asthmaticus, Polysubstance abuse Patient Disposition: Still a Patient Prescriptions: No Action (DME) nebulizers Misc See Rx Instructions .Route Qty: 1 0RF Rx Instructions: Use every 4 hours as needed for SOB, wheezing Xolair 150 mg recon soln 225 mg subcut Q2W 28 Days Qty: 3 6RF Trelegy Ellipta 200-62.5-25 mcg blister with device 1 inh inhalation DAILY 30 Days Qty: 1 6RF Eliquis 5 mg tablet 5 mg PO BID Qty: 120 3RF hydroxyzine HCl 25 mg tablet 25 mg PO BID PRN (Reason: anxiety) 30 Days Qty: 60 0RF Rx Instructions: Future refills considered AFTER blood work completed Trelegy Ellipta 200-62.5-25 mcg blister with device 1 ea PO DAILY Qty: 60 6RF albuterol sulfate [Ventolin HFA] 90 mcg/actuation HFA aerosol inhaler 2 puff PO Q4-6H PRN (Reason: for wheezing) Qty: 18 2RF albuterol sulfate 2.5 mg /3 mL (0.083 %) solution for nebulization 2.5 mg inhalation Q4-6H PRN (Reason: for wheezing) Qty: 75 3RF fluticasone propionate [Allergy Relief (fluticasone)] 50 mcg/actuation spray,suspension 2 spray intranasal DAILY PRN (Reason: Allergy Symptoms) Rx Instructions: administer into each nostril Future refills considered AFTER blood work completed methadone [Methadose] 10 mg/mL Concentrate 48 mg PO DAILY prednisone 10 mg tablet See Rx Instructions .ROUTE .COMPLEX Qty: 21 0RF Rx Instructions: 40 mg (4 tabs) daily x 2 days, then 30 mg (3 tabs) daily x 2 days, then 20 mg (2 tabs) daily x 2 days, then 10 mg (1 tab) daily x 2 days, then 5 mg (half tab) daily x 2 days doxycycline monohydrate 100 mg Capsule 100 mg PO Q12H Qty: 14 0RF oseltamivir [Tamiflu] 75 mg Capsule 75 mg PO Q12H Qty: 3 0RF prednisone 20 mg tablet 40 mg PO DAILY Qty: 8 0RF sennosides-docusate sodium [Senexon-S] 8.6-50 mg tablet 1 tab-cap PO BID PRN (Reason: Constipation)
[2023-06-22 18:18] LABS: Glucose, Whole Blood 158 mg/dL (60-115)
[2023-06-22] MEDS: 0.9 % Sodium Chloride 1,000 ML 999 ML IV ×2 (18:19→20:12)
[2023-06-22] MEDS: Magnesium Sulfate/H2O 2 GM/50 ML PIGGYBACK IV (18:19)
[2023-06-22 18:20] LABS: MANUAL DIFF FLAG NO
[2023-06-22] MEDS: Albuterol Sulfate 7.5 MG, Albuterol/Iprat 2.5/0.5MG 3 ML 3 ML INHALE ×2 (18:24→21:41)
--- NOTE | 2023-06-22 18:24 | PC.RT ---
Pt brought in via EMS on nebulizer and O2. Placed on bipap per MD order and given 10 mg duo neb. Pt wale bipap well as documented.
--- NOTE | 2023-06-22 18:25 | PC.NURSE ---
Pt came in by EMS, very anxious, alerted, EMS reporting pt became alerted on transport. Endtidal for EMS was 70-80. Pt is still trypoding at this time. Second line placed, labs obtained. Meds administered per JUN. recommended narcan, advised not given narcan d/t bipap and vomiting, narcan held at this time, pinpoint pupils remain.
[2023-06-22 18:27] LABS: Basophils Absolute Auto 0.1 X10*3/uL (0.0-0.2); Basophils Percent Auto 0.6 % (0-2); Eosinophils Absolute Auto 0.2 X10*3/uL (0.0-0.4); Eosinophils Percent Auto 2.1 % (0-4); Hematocrit 41.7 % (42.0-52.0); Hemoglobin 13.4 g/dl (14.0-18.0); Imm Gran Abs Auto 0.03 X10*3/uL (0.00-0.03); Imm Gran Pct Auto 0.3 % (0.0-0.4); Lymphocytes Absolute Auto 3.9 X10*3/uL (1.2-4.9); Lymphocytes Percent Auto 37.8 % (20-40); Mean Corpuscular HGB Conc 32.1 g/dl (31.0-36.0); Mean Corpuscular Hemoglobin 31.2 pg (27.0-33.0); Mean Platelet Volume 9.3 fL (9.4-12.4); Monocytes Absolute Auto 0.7 X10*3/uL (0.1-1.2); Neutrophils Absolute Auto 5.4 x10*3/uL (2.0-8.3); Neutrophils Percent Auto 52.2 % (45-73); Platelet Count 354 X10*3/uL (160-400); Red Cell Distribution Width 12.9 % (11.0-16.0); White Blood Count 10.3 X10*3/uL (4.8-10.8)
[2023-06-22 18:36] LABS: VBG Base Excess -8.9 mmol/L; VBG HCO3 25 mmol/L (22-26); VBG pCO2 102 mmHg; VBG pH 6.99 (7.32-7.43); VBG pO2 59 mmHg
[2023-06-22 18:42] LABS: Venous Blood Gas Refer to POC result
[2023-06-22 18:46] LABS: Lactic Acid 3.9 mmol/L (0.5-2.0)
[2023-06-22 18:47] LABS: Alanine Aminotransferase 20 U/L (0-40); Albumin Level 4.2 g/dL (3.5-5.0); Alkaline Phosphatase 91 U/L (39-117); Anion Gap 15 (12-20); Aspartate Amino Transferase 18 U/L (5-37); Bilirubin Total 0.5 mg/dL (0.0-1.0); Blood Urea Nitrogen 12 mg/dL (9-16); Calcium 9.3 mg/dL (8.4-10.2); Carbon Dioxide 28 mmol/L (22-29); Chloride 107 mmol/L (96-108); Estimated Glomerular Filt Rate > 60; Glucose Random 177 mg/dL (60-115); Potassium 4.5 mmol/L (3.3-5.1); Sodium 145 mmol/L (135-145); Total Protein 7.1 g/dL (6.5-8.0)
[2023-06-22] MEDS: cefTRIAXone sodium 1 GM in 0.9 % Sodium Chloride 50 ML IV (19:49)
--- NOTE | 2023-06-22 20:06 | PC.NURSE ---
Dr. Patrick made aware of bp. verbal order to take bipap off for 1 hour and repeat vbg. respiratory called to bedside. ivf ordered.
--- NOTE | 2023-06-22 20:13 | PC.NURSE ---
sats 83% on RA Dr. Patrick verbal to place pt back on bipap. respiratory called.
[2023-06-22] MEDS: Albuterol Sulfate 7.5 MG, Albuterol Sulfate (0.083%) 2.5 MG 10 MG INHALE (20:27)
[2023-06-22 20:29] LABS: Reflex Lactate? Lactic Acid Added
[2023-06-22 21:33] LABS: VBG Base Excess -2.8 mmol/L; VBG HCO3 24 mmol/L (22-26); VBG pCO2 49 mmHg; VBG pH 7.29 (7.32-7.43); VBG pO2 44 mmHg
[2023-06-22 21:33] LABS: Venous Blood Gas Refer to POC result
[2023-06-22 21:50] LABS: ~Lactic Acid-LAB USE ONLY 3.8 mmol/L (0.5-2.0)
[2023-06-22 22:07] LABS: Influenza A PCR NEGATIVE (Negative); Influenza B PCR NEGATIVE (Negative); Resp Syncy Virus RNA Qual PCR NEGATIVE (Negative); SARS COV2 PCR INHOUSE NEGATIVE (Negative)
--- NOTE | 2023-06-22 22:32 | PC.NURSE ---
pt placed back on bipap by respiratory per Dr. Patrick. prior to pt tolerated po food/liquids. pt resting comfortably. call flores within reach.
[2023-06-22 23:26] LABS: Reflex Lactate? 2 Y
[2023-06-23] VITALS (22 sets, daily range): BP systolic 108–149; BP diastolic 62–90; PULSE 84–128; RESP 13–33; TEMP 36.5–37.2; O2SAT 89–98; BMI 23.2
[2023-06-23 01:04] LABS: Venous Blood Gas Refer to POC result
[2023-06-23 01:05] LABS: VBG Base Excess -4.1 mmol/L; VBG HCO3 24 mmol/L (22-26); VBG pCO2 56 mmHg; VBG pH 7.23 (7.32-7.43); VBG pO2 38 mmHg
[2023-06-23 01:18] LABS: ~Lactic Acid-LAB USE ONLY 5.6 mmol/L (0.5-2.0)
[2023-06-23 01:22] LABS: Cancel Lactic Acid Canceled
[2023-06-23] MEDS: dexAMETHasone sod phosphate 10 MG/ML VIAL IVPUSH (01:30)
[2023-06-23] MEDS: LORazepam 2 MG/ML VIAL 1 MG IVPUSH (01:30)
--- NOTE | 2023-06-23 01:30 | PC.NURSE ---
pt medicated per mar with ativan as pt reporting anxiety with bipap to Dr. Patrick.
--- NOTE | 2023-06-23 01:34 | ECG_ITS ---
Test Reason : SOB Blood Pressure : / mmHG Vent. Rate : 109 BPM Atrial Rate : 109 BPM P-R Int : 140 ms QRS Dur : 082 ms QT Int : 326 ms P-R-T Axes : 085 090 078 degrees QTc Int : 439 ms Sinus tachycardia Rightward axis Borderline ECG When compared with ECG of 18-APR-2023 16:37, Questionable change in QRS axis Referred By: Darin Patrick Electronically Signed By:GENEVIEVE VANCE MD
--- NOTE | 2023-06-23 03:44 | PC.NURSE ---
entered room as bipap alerting; pt ripped bipap off reporting feeling anxious. respiratory called to bedside Dr. Mcmillan notified. pt placed on 3L NC and given ice water.
[2023-06-23 04:08] LABS: Venous Blood Gas Refer to POC result
[2023-06-23 04:12] LABS: VBG Base Excess -2.8 mmol/L; VBG HCO3 23 mmol/L (22-26); VBG pCO2 46 mmHg; VBG pH 7.31 (7.32-7.43); VBG pO2 42 mmHg
[2023-06-23] MEDS: Albuterol Sulfate 7.5 MG, Albuterol Sulfate (0.083%) 2.5 MG 10 MG INHALE (04:21)
[2023-06-23 05:12] LABS: Venous Blood Gas Refer to POC result
[2023-06-23 05:16] LABS: VBG Base Excess -1.9 mmol/L; VBG HCO3 23 mmol/L (22-26); VBG pCO2 40 mmHg; VBG pH 7.36 (7.32-7.43); VBG pO2 68 mmHg
--- NOTE | 2023-06-23 05:36 | P.HPHOSP_ITS ---
History of Present Illness Date of Service: 06/23/23 Chief Complaint: Dyspnea This is a 48-year-old male with pertinent history of chronic hypoxemic respiratory failure due to asthma on oxygen as needed, opioid use disorder on methadone, history of PE on Eliquis presents to the emergency department for evaluation of dyspnea and wheezing. Patient states his symptoms have been ongoing for a while but worsened in the last 1 week. He is complaining of dyspnea which is worse with exertion. Also has cough with intermittent sputum production and wheezing. Patient ran out of his home oxygen. No palpitations, orthopnea, PND, abdominal pain, changes in urinary or bowel habits. As per EMS, patient was found to be saturating 82% on room air and was confused. He admits to using heroin 1 day prior to presentation. In the emergency department, patient was initially placed on BiPAP for respiratory acidosis. Also given IV Solu-Medrol and multiple DuoNeb treatments. Successfully weaned off BiPAP with improvement in respiratory acidosis and will be admitted to medicine floor Review of Systems 2 Constitutional: Constitutional: Reports fatigue, Reports malaise and Reports weakness Cardiovascular: Cardiovascular: Reports dyspnea on exertion Respiratory: Respiratory: Reports cough, Reports dyspnea on exertion and Reports wheezing Gastrointestinal: Gastrointestinal: Reports no additional gastrointestinal complaints Genitourinary: Genitourinary: Reports no additional male genitourinary complaints Musculoskeletal: Musculoskeletal: Reports no additional musculoskeletal complaints Neurologic: Reports weakness Endocrine: Endocrine: Reports fatigue Allergic/Immunologic: Allergic/Immunologic: Reports wheezing [facility] Medical History Moderate persistent asthma with exacerbation Opiate abuse, episodic Left against medical advice Lung problems from crack cocaine Chronic lung disease Asthma Pulmonary emboli Family History Other Family history non-contributory Social History Household Members: Significant Other Housing: House Do you presently have visiting nurse or other home services: No Unable to assess alcohol history related to: Unable to respond Alcohol intake: never Patient Tobacco Use Status: Former Tobacco user Tobacco use type: Cigarette Cigarettes Per Day: 2 e-Cigarette/Vaping Use: Never Used Second Hand Smoke Exposure: No Use of substances other than those prescribed or required for medical reasons: Unable to respond Substance Use Type: Heroin Advance Directives: No Advance Directives Information Provided: No service: No Current occupational status: unemployed Cognitive needs: No Hearing needs: No Vision needs: No Meds Allergies Allergy/AdvReac Type Severity Reaction Status Date / Time walnut Allergy Unknown SWELLING Verified 06/22/23 18:13 buprenorphine [From Suboxone] Allergy swelling Verified 06/22/23 18:13 in his hands and rash naloxone [From Suboxone] Allergy swelling Verified 06/22/23 18:13 in his hands and rash NSAIDS/ASA Allergy Unknown unknown Uncoded 08/29/22 09:32 walnuts Allergy Unknown anaphylaxis Uncoded 08/29/22 09:32 Home Medications Medication Instructions Recorded Confirmed Last Taken Type sennosides 8.6 mg-docusate sodium 1 tab-cap PO BID PRN Constipation 08/29/22 04/27/23 Unknown History 50 mg tablet (Senexon-S) fluticasone propionate 50 2 spray intranasal DAILY PRN 04/18/23 04/27/23 Unknown History mcg/actuation nasal Allergy Symptoms spray,suspension (Allergy Relief (fluticasone)) methadone 10 mg/mL oral 48 mg PO DAILY 04/18/23 04/28/23 04/26/23 History concentrate (Methadose) Physical Exam 2 Vital Signs and Narrative: Vital Signs: Last Vital Signs Temp 98.5 F 06/23/23 03:58 Pulse 113 H 06/23/23 04:22 Resp 28 H 06/23/23 05:13 BP 134/74 06/23/23 03:58 Pulse Ox 92 06/23/23 03:58 O2 Del Method Nasal Cannula 06/23/23 03:58 O2 Flow Rate 3 06/23/23 03:58 Oxygen Flow Rate 15 06/22/23 18:10 BMI result Body Mass Index 23.4 Middle-aged male lying in bed in mild distress on supplemental oxygen Neck supple, no JVD Tachycardia with regular rhythm, S1-S2 heard Bilateral wheezing without crackles Abdomen soft nontender, no guarding, no rigidity Patient is awake, alert and oriented to self, place, time and person ; no focal motor deficit Psych: Normal mood No pedal edema Results Labs 06/22/23 18:15 06/22/23 18:15 Labs: Laboratory Results - last 24 hr 06/22/23 06/22/23 06/22/23 18:09 18:15 18:21 MCV 97.0 MCH 31.2 MCHC 32.1 RDW 12.9 Plt Count 354 D MPV 9.3 L Immature Gran % (Auto) 0.3 Neut % (Auto) 52.2 Lymph % (Auto) 37.8 [place] % (Auto) 7.0 Eos % (Auto) 2.1 Baso % (Auto) 0.6 Lymph # (Auto) 3.9 [place] # (Auto) 0.7 Eos # (Auto) 0.2 Baso # (Auto) 0.1 Abs Immat Gran (auto) 0.03 Absolute Neuts (auto) 5.4 Absolute Nucleated RBC 0.000 Nucleated RBC % (auto) 0.0 Hold Purple Top SEE NOTE Hold Blue Top SEE NOTE VBG pH 6.99 L* VBG pCO2 102 VBG pO2 59 VBG HCO3 25 VBG O2 Saturation 67.0 VBG Base Excess -8.9 Anion Gap 15 Estim Creat Clear Calc 73.0 Estimated GFR > 60 POC Glucose 158 H Random Glucose 177 H Lactic Acid 3.9 H* Lactic Acid F/U @ 2Hr Lactic Acid F/U @ 4Hr Calcium 9.3 Total Bilirubin 0.5 AST 18 ALT 20 Alkaline Phosphatase 91 Total Protein 7.1 Albumin 4.2 Influenza Type A (PCR) Influenza Type B (PCR) RSV RNA Qual (PCR) SARS-CoV-2 RNA (RT-PCR) 06/22/23 06/22/23 06/23/23 21:22 21:24 00:53 MCV MCH MCHC RDW Plt Count MPV Immature Gran % (Auto) Neut % (Auto) Lymph % (Auto) [place] % (Auto) Eos % (Auto) Baso % (Auto) Lymph # (Auto) [place] # (Auto) Eos # (Auto) Baso # (Auto) Abs Immat Gran (auto) Absolute Neuts (auto) Absolute Nucleated RBC Nucleated RBC % (auto) Hold Purple Top Hold Blue Top VBG pH 7.29 L VBG pCO2 49 VBG pO2 44 VBG HCO3 24 VBG O2 Saturation 66.0 VBG Base Excess -2.8 Anion Gap Estim Creat Clear Calc Estimated GFR POC Glucose Random Glucose Lactic Acid Lactic Acid F/U @ 2Hr 3.8 H* Lactic Acid F/U @ 4Hr 5.6 H* Calcium Total Bilirubin AST ALT Alkaline Phosphatase Total Protein Albumin Influenza Type A (PCR) NEGATIVE Influenza Type B (PCR) NEGATIVE RSV RNA Qual (PCR) NEGATIVE SARS-CoV-2 RNA (RT-PCR) NEGATIVE 06/23/23 06/23/23 06/23/23 00:56 04:05 05:10 MCV MCH MCHC RDW Plt Count MPV Immature Gran % (Auto) Neut % (Auto) Lymph % (Auto) [place] % (Auto) Eos % (Auto) Baso % (Auto) Lymph # (Auto) [place] # (Auto) Eos # (Auto) Baso # (Auto) Abs Immat Gran (auto) Absolute Neuts (auto) Absolute Nucleated RBC Nucleated RBC % (auto) Hold Purple Top Hold Blue Top VBG pH 7.23 L 7.31 L 7.36 VBG pCO2 56 46 40 VBG pO2 38 42 68 VBG HCO3 24 23 23 VBG O2 Saturation 50.0 63.0 91.0 VBG Base Excess -4.1 -2.8 -1.9 Anion Gap Estim Creat Clear Calc Estimated GFR POC Glucose Random Glucose Lactic Acid Lactic Acid F/U @ 2Hr Lactic Acid F/U @ 4Hr Calcium Total Bilirubin AST ALT Alkaline Phosphatase Total Protein Albumin Influenza Type A (PCR) Influenza Type B (PCR) RSV RNA Qual (PCR) SARS-CoV-2 RNA (RT-PCR) Imaging Radiologist's Impressions: Impressions Chest X-Ray 06/22/23 18:42 IMPRESSION: 1. Mild chronic interstitial thickening with air trapping. 2. No focal consolidation or pleural effusion. 3. Limited evaluation of the right apex due to overlying external device. There is an equivocal approximately 0.8 cm nodule projecting in between the posterior fourth and fifth ribs, new compared to 04/27/2023; recommend repeat radiograph with removal of overlying devices. Assessment and Plan (1) Acute on chronic respiratory failure with hypoxia and hypercapnia: Status: Acute Plan This is a 48-year-old male with pertinent history of chronic hypoxemic respiratory failure due to asthma on oxygen as needed, opioid use disorder on methadone, history of PE on Eliquis presents to the emergency department for evaluation of dyspnea and wheezing. #. Acute on chronic hypoxemic hypercapnic respiratory failure due to acute exacerbation of asthma: Initially placed on BiPAP in ER for hypercapnia. Will admit patient with supplemental oxygen. Scheduled and p.r.n. DuoNebs. Initiating systemic steroids. Continue home inhalers #. Acute metabolic encephalopathy due to hypoxia: Resolved #. Lactic acidosis due to hypoxia and albuterol use, not due to sepsis #. Opioid use disorder on methadone. Consulting Addiction Team #. History of PE on Eliquis Med rec pending DVT prophylaxis: Eliquis Full code Admit as inpatient and will require two night minimum hospital stay for supplemental oxygen, monitoring of respiratory status (as above), which is not possible in a lesser acute setting. Quality Stroke Does the patient have a stroke diagnosis?: No VTE Prior VTE?: No VTE Risk Level:: Medical - moderate - high VTE Device Contraindication: Treatment Not Indicated VTE Drug Contraindication: N/A - Med Ordered
[2023-06-23] MEDS: Enoxaparin Sodium 40 MG/0.4 ML SYRINGE SUBCUT (05:52)
--- NOTE | 2023-06-23 05:54 | PC.NURSE ---
Addendum entered by Joel Bailey 06/23/23 06:34: pt axox4 speaking full clear sentences. vss. afebrile. pt denies cp at this time. call flores within reach. Original Note: late entry pt axox4 bipap removed q2h and vbg repeated. pt now on highflow tolerating well sats 98%.
[2023-06-23] MEDS: 0.9 % Sodium Chloride Flush 3 ML SYRINGE IVFLUSH ×3 (07:49→20:21)
[2023-06-23] MEDS: methylPREDNISolone Sod Succ 40 MG/ML VIAL IVPUSH ×2 (07:54→20:20)
[2023-06-23] MEDS: Albuterol/Iprat 2.5/0.5MG 3 ML AMPUL.NEB INHALE ×4 (08:04→19:13)
--- NOTE | 2023-06-23 08:05 | PC.RT ---
found pt. on hfnc. unknown when started. no order for hfnc from provider. pt. tolerating well. awake, alert, vs wnl. weaned settings to minimal support. asked provider to enter order for hfnc
--- NOTE | 2023-06-23 08:07 | PHA.MEDREC ---
Pharmacy Consult ? Medication Reconciliation Pharmacy has completed the medication reconciliation. spoke with patient to confirm medications. He reported a methadone dose of 48mg and last took yesterday at 8:30 AM. He picks up methadone from [address] [place] [address]). Patient was on xolair but has not had in over 2 weeks as he needs to see the doctor before continuing.
--- NOTE | 2023-06-23 08:09 | PC.NURSE ---
PT IS A/O X 4 NO C/O SOB/ANA NOTED. SPEAKS IN FULL SENTENCES. PT IS ON HIGH FLOW 02 AT 35%/35. LUNGS DIMINISHED/EXP WHEEZING ALL LOBES. NO EDEMA NOTED. PT AWARE OF PLAN OF CARE. WILL CONTINUE TO MONITOR. PT IS EATING BREAKFAST. HOB UP. HEPLOCK #18 TO R AC. HEPLOCK #20 TO L FOREARM D/C 2NDARY TO PT C/O PAINIFUL.
[2023-06-23] MEDS: Apixaban 5 MG TABLET PO ×2 (09:31→20:20)
--- NOTE | 2023-06-23 10:03 | HE.PHANOTE ---
Methadone Verification Pharmacy has received the methadone verification from [facility]. Patient last recieved methadon 48 mg on 06/20 with take home bottles til 06/23. Information give by ABDIEL Gabriel at the clinic. Patient reports last dose on 06/21. Mireya Childress, PharmD
--- NOTE | 2023-06-23 10:57 | P.PNIM_ITS ---
Subjective Subjective Date of Service: 06/23/23 Interval History: feeling somewhat better Physical Exam 2 Vital Signs: Vital Signs: Last Vital Signs Temp 98.6 F 06/23/23 09:42 Pulse 108 H 06/23/23 10:18 Resp 21 H 06/23/23 10:18 BP 123/69 06/23/23 10:18 Pulse Ox 95 06/23/23 10:18 O2 Del Method High Flow Nasal C annula 06/23/23 10:18 O2 Flow Rate 35 06/23/23 09:42 FiO2 35.6 06/23/23 07:24 Oxygen Flow Rate 15 06/22/23 18:10 BMI result Body Mass Index 23.4 General: AO X 3, in some acute distress Resp: tight bilateral, accessory muscles used CVS: S1,S2,RRR GI: soft, non tender, non distended Neuro: motor grossly intact, alert Psych: appropriate affect, appropriate insight Objective Data Active Medications Acetaminophen (Acetaminophen 325 Mg Tablet) 650 mg PO Q6H PRN PRN Reason: Pain, Mild (Pain Scale 1-3) Albuterol/Ipratropium (Albuterol/Iprat 2.5/0.5mg 3 Ml Ampul.Neb) 3 ml INHALE RQ4H WHILE AWAKE [facility] Last Admin: 06/23/23 08:04 Dose: 3 ml Documented By: ANAMIKA Albuterol/Ipratropium (Albuterol/Iprat 2.5/0.5mg 3 Ml Ampul.Neb) 3 ml INHALE Q4H PRN PRN Reason: Wheezing Apixaban (Apixaban 5 Mg Tablet) 5 mg PO BID [facility] Last Admin: 06/23/23 09:31 Dose: 5 mg Documented By: ANAMIKA Melatonin (Melatonin 3 Mg Tablet) 6 mg PO BEDTIME PRN PRN Reason: Insomnia Methadone HCl (Methadone Hcl 20 Mg/2 Ml Oral.Conc) 48 mg PO DAILY [facility] Methylprednisolone Sodium Succinate (Methylprednisolone Sod Succ 40 Mg/Ml Vial) 40 mg IVPUSH Q12H [facility] Last Admin: 06/23/23 07:54 Dose: 40 mg Documented By: ANAMIKA Ondansetron HCl (Ondansetron Hcl 4 Mg/2 Ml Vial) 4 mg IVPUSH Q8H PRN PRN Reason: Nausea and Vomiting Sodium Chloride (0.9 % Sodium Chloride Flush 3 Ml Syringe) 3 ml IVFLUSH QSHIFT [facility] Last Admin: 06/23/23 07:49 Dose: 3 ml Documented By: JUOC Labs 06/22/23 18:15 06/22/23 18:15 Labs: Laboratory Results - last 24 hr 06/22/23 06/22/23 06/22/23 18:09 18:15 18:21 MCV 97.0 MCH 31.2 MCHC 32.1 RDW 12.9 Plt Count 354 D MPV 9.3 L Immature Gran % (Auto) 0.3 Neut % (Auto) 52.2 Lymph % (Auto) 37.8 [place] % (Auto) 7.0 Eos % (Auto) 2.1 Baso % (Auto) 0.6 Lymph # (Auto) 3.9 [place] # (Auto) 0.7 Eos # (Auto) 0.2 Baso # (Auto) 0.1 Abs Immat Gran (auto) 0.03 Absolute Neuts (auto) 5.4 Absolute Nucleated RBC 0.000 Nucleated RBC % (auto) 0.0 Hold Purple Top SEE NOTE Hold Blue Top SEE NOTE VBG pH 6.99 L* VBG pCO2 102 VBG pO2 59 VBG HCO3 25 VBG O2 Saturation 67.0 VBG Base Excess -8.9 Anion Gap 15 Estim Creat Clear Calc 73.0 Estimated GFR > 60 POC Glucose 158 H Random Glucose 177 H Lactic Acid 3.9 H* Lactic Acid F/U @ 2Hr Lactic Acid F/U @ 4Hr Calcium 9.3 Total Bilirubin 0.5 AST 18 ALT 20 Alkaline Phosphatase 91 Total Protein 7.1 Albumin 4.2 Influenza Type A (PCR) Influenza Type B (PCR) RSV RNA Qual (PCR) SARS-CoV-2 RNA (RT-PCR) 06/22/23 06/22/23 06/23/23 21:22 21:24 00:53 MCV MCH MCHC RDW Plt Count MPV Immature Gran % (Auto) Neut % (Auto) Lymph % (Auto) [place] % (Auto) Eos % (Auto) Baso % (Auto) Lymph # (Auto) [place] # (Auto) Eos # (Auto) Baso # (Auto) Abs Immat Gran (auto) Absolute Neuts (auto) Absolute Nucleated RBC Nucleated RBC % (auto) Hold Purple Top Hold Blue Top VBG pH 7.29 L VBG pCO2 49 VBG pO2 44 VBG HCO3 24 VBG O2 Saturation 66.0 VBG Base Excess -2.8 Anion Gap Estim Creat Clear Calc Estimated GFR POC Glucose Random Glucose Lactic Acid Lactic Acid F/U @ 2Hr 3.8 H* Lactic Acid F/U @ 4Hr 5.6 H* Calcium Total Bilirubin AST ALT Alkaline Phosphatase Total Protein Albumin Influenza Type A (PCR) NEGATIVE Influenza Type B (PCR) NEGATIVE RSV RNA Qual (PCR) NEGATIVE SARS-CoV-2 RNA (RT-PCR) NEGATIVE 06/23/23 06/23/23 06/23/23 00:56 04:05 05:10 MCV MCH MCHC RDW Plt Count MPV Immature Gran % (Auto) Neut % (Auto) Lymph % (Auto) [place] % (Auto) Eos % (Auto) Baso % (Auto) Lymph # (Auto) [place] # (Auto) Eos # (Auto) Baso # (Auto) Abs Immat Gran (auto) Absolute Neuts (auto) Absolute Nucleated RBC Nucleated RBC % (auto) Hold Purple Top Hold Blue Top VBG pH 7.23 L 7.31 L 7.36 VBG pCO2 56 46 40 VBG pO2 38 42 68 VBG HCO3 24 23 23 VBG O2 Saturation 50.0 63.0 91.0 VBG Base Excess -4.1 -2.8 -1.9 Anion Gap Estim Creat Clear Calc Estimated GFR POC Glucose Random Glucose Lactic Acid Lactic Acid F/U @ 2Hr Lactic Acid F/U @ 4Hr Calcium Total Bilirubin AST ALT Alkaline Phosphatase Total Protein Albumin Influenza Type A (PCR) Influenza Type B (PCR) RSV RNA Qual (PCR) SARS-CoV-2 RNA (RT-PCR) Assessment and Plan (1) Allergic asthma with status asthmaticus: Status: Acute Plan 48M PMH severe persistent allergic asthma on prn home o2, opiate dependence, history of pe on eliquis, presented with ams, sob Acute on chronic hypoxic and hypercapnic respiratory failure complicated by acute metabolic encephalopathy due to severe persistent asthma with acute decompensation likely due to heroin use Mental status back to baseline PCO2 improved from about 100-40 with BiPAP Now on high-flow oxygen Continue Solu-Medrol, duo nebs Opiate dependence Methadone History of PE Eliquis Full code reason for continued hospitalization: Severe hypoxia Quality Stroke Does the patient have a stroke diagnosis?: No VTE Prior VTE?: No VTE Risk Level:: Medical - moderate - high VTE Device Contraindication: Treatment Not Indicated VTE Drug Contraindication: N/A - Med Ordered
[2023-06-23] MEDS: methADONE HCl 20 MG/2 ML ORAL.CONC 48 MG PO (11:09)
--- NOTE | 2023-06-23 16:25 | MHC.RECOVRN ---
Met with pt in 377 after consult placed to Addiction Medicine for OUD. Pt had presented to the ED reporting hx COPD and having prn oxygen at home. Upon evaluation, pt admitted for acute on chronic respiratory failure with hypoxia and hypercapnia. Pt sitting in bed, awake, alert, short of breath but engages in conversation. Pt reports currently being on methadone, 48 mg daily through [facility]. Pt reports he has been decreasing his dose and has been at 48 mg for approx 2 months. Pt reports since decreasing he has been using approx 1 bag heroin/fentanyl, [place], at least twice per week. Pt reports in the middle of the night he experiences body aches and diaphoresis. Pt interested in increasing methadone dose to address withdrawal symptoms. Pt denies other questions or concerns at this time. Discussed with provider.
[2023-06-23] MEDS: guaiFENesin DM 100/10/5 ML 5 ML SYRUP PO ×2 (17:14→23:04)
[2023-06-23] MEDS: hydrOXYzine HCL 25 MG TABLET PO (20:20)
[2023-06-23] MEDS: methADONE HCl 20 MG/2 ML ORAL.CONC 10 MG PO (20:21)
[2023-06-24] VITALS (8 sets, daily range): BP systolic 118–150; BP diastolic 71–85; PULSE 76–112; RESP 18–22; TEMP 36–37; O2SAT 92–96
[2023-06-24] MEDS: guaiFENesin DM 100/10/5 ML 5 ML SYRUP PO ×3 (04:41→20:21)
[2023-06-24 06:10] LABS: Basophils Absolute Auto 0.1 X10*3/uL (0.0-0.2); Basophils Percent Auto 0.2 % (0-2); Eosinophils Absolute Auto 0.1 X10*3/uL (0.0-0.4); Eosinophils Percent Auto 0.2 % (0-4); Hematocrit 34.6 % (42.0-52.0); Hemoglobin 11.7 g/dl (14.0-18.0); Imm Gran Abs Auto 0.25 X10*3/uL (0.00-0.03); Imm Gran Pct Auto 0.9 % (0.0-0.4); Lymphocytes Percent Auto 3.5 % (20-40); MANUAL DIFF FLAG SCAN; Mean Corpuscular HGB Conc 33.8 g/dl (31.0-36.0); Mean Corpuscular Hemoglobin 31.9 pg (27.0-33.0); Mean Corpuscular Volume 94.3 fL (80.0-98.0); Mean Platelet Volume 9.8 fL (9.4-12.4); Monocytes Absolute Auto 0.7 X10*3/uL (0.1-1.2); Monocytes Percent Auto 2.3 % (2-11); Neutrophils Absolute Auto 26.5 x10*3/uL (2.0-8.3); Neutrophils Percent Auto 92.9 % (45-73); Platelet Count 268 X10*3/uL (160-400); Red Blood Count 3.67 X10*6/uL (4.60-5.80); Red Cell Distribution Width 13.6 % (11.0-16.0); SCAN SMEAR FLAG 1; White Blood Count 28.6 X10*3/uL (4.8-10.8)
[2023-06-24 06:28] LABS: SLIDE REVIEW VERIFIED
[2023-06-24 06:30] LABS: Anion Gap 11 (12-20); Blood Urea Nitrogen 18 mg/dL (9-16); Calcium 9.2 mg/dL (8.4-10.2); Carbon Dioxide 28 mmol/L (22-29); Chloride 106 mmol/L (96-108); Creatinine Clr Calc Pharmacy 104.1; Estimated Glomerular Filt Rate > 60; Glucose Random 135 mg/dL (60-115); Potassium 4.6 mmol/L (3.3-5.1); Sodium 140 mmol/L (135-145)
[2023-06-24 06:31] LABS: Anion Gap 13 (12-20); Blood Urea Nitrogen 18 mg/dL (9-16); Carbon Dioxide 27 mmol/L (22-29); Chloride 105 mmol/L (96-108); Creatinine Clr Calc Pharmacy 108.1; Estimated Glomerular Filt Rate > 60; Glucose Fasting 136 mg/dL (60-99); Potassium 4.7 mmol/L (3.3-5.1); Sodium 140 mmol/L (135-145)
[2023-06-24] MEDS: Albuterol/Iprat 2.5/0.5MG 3 ML AMPUL.NEB INHALE ×4 (06:31→19:44)
[2023-06-24] MEDS: 0.9 % Sodium Chloride Flush 3 ML SYRINGE IVFLUSH ×2 (07:27→14:55)
[2023-06-24] MEDS: methylPREDNISolone Sod Succ 40 MG/ML VIAL IVPUSH ×2 (07:27→20:20)
[2023-06-24] MEDS: Apixaban 5 MG TABLET PO ×2 (07:27→20:20)
[2023-06-24] MEDS: methADONE HCl 20 MG/2 ML ORAL.CONC 48 MG PO (07:27)
--- NOTE | 2023-06-24 09:50 | P.PNIM_ITS ---
Subjective Subjective Date of Service: 06/24/23 Interval History: still with cough, sob, but improving Physical Exam 2 Vital Signs: Vital Signs: Last Vital Signs Temp 97.2 F 06/24/23 08:00 Pulse 76 06/24/23 08:00 Resp 18 06/24/23 08:00 BP 118/71 06/24/23 08:00 Pulse Ox 92 06/24/23 08:00 O2 Del Method Oxymask 06/24/23 08:00 O2 Flow Rate 4.0 06/24/23 08:00 FiO2 35.6 06/23/23 07:24 Oxygen Flow Rate 15 06/22/23 18:10 BMI result Body Mass Index 23.2 General: AO X 3, less acute distress Resp: tight bilateral with diffuse exp wheezes, some accessory muscles used CVS: S1,S2,RRR GI: soft, non tender, non distended Neuro: motor grossly intact, alert Psych: appropriate affect, appropriate insight Objective Data Active Medications Acetaminophen (Acetaminophen 325 Mg Tablet) 650 mg PO Q6H PRN PRN Reason: Pain, Mild (Pain Scale 1-3) Albuterol/Ipratropium (Albuterol/Iprat 2.5/0.5mg 3 Ml Ampul.Neb) 3 ml INHALE RQ4H WHILE AWAKE [facility] Last Admin: 06/24/23 06:31 Dose: 3 ml Documented By: JESSICA Albuterol/Ipratropium (Albuterol/Iprat 2.5/0.5mg 3 Ml Ampul.Neb) 3 ml INHALE Q4H PRN PRN Reason: Wheezing Apixaban (Apixaban 5 Mg Tablet) 5 mg PO BID [facility] Last Admin: 06/24/23 07:27 Dose: 5 mg Documented By: ALCIDES Guaifenesin/Dextromethorphan (Guaifenesin Dm 100/10/5 Ml 5 Ml Syrup) 5 ml PO Q4H PRN PRN Reason: Cough Last Admin: 06/24/23 04:41 Dose: 5 ml Documented By: LAMBERT Hydroxyzine HCl (Hydroxyzine Hcl 25 Mg Tablet) 25 mg PO BID PRN PRN Reason: Anxiety Last Admin: 06/23/23 20:20 Dose: 25 mg Documented By: LAMBERT Comments: pt feels anxious about his breathing and cough Melatonin (Melatonin 3 Mg Tablet) 6 mg PO BEDTIME PRN PRN Reason: Insomnia Methadone HCl (Methadone Hcl 20 Mg/2 Ml Oral.Conc) 48 mg PO DAILY [facility] Last Admin: 06/24/23 07:27 Dose: 48 mg Documented By: ALCIDES Methadone HCl (Methadone Hcl 20 Mg/2 Ml Oral.Conc) 10 mg PO BEDTIME [facility] Last Admin: 06/23/23 20:21 Dose: 10 mg Documented By: LAMBERT Methylprednisolone Sodium Succinate (Methylprednisolone Sod Succ 40 Mg/Ml Vial) 40 mg IVPUSH Q12H [facility] Last Admin: 06/24/23 07:27 Dose: 40 mg Documented By: ALCIDES Ondansetron HCl (Ondansetron Hcl 4 Mg/2 Ml Vial) 4 mg IVPUSH Q8H PRN PRN Reason: Nausea and Vomiting Sodium Chloride (0.9 % Sodium Chloride Flush 3 Ml Syringe) 3 ml IVFLUSH QSHIFT [facility] Last Admin: 06/24/23 07:27 Dose: 3 ml Documented By: ALCIDES Labs 06/24/23 05:15 06/24/23 05:15 Labs: Laboratory Results - last 24 hr 06/24/23 06/24/23 06/24/23 05:15 05:15 05:15 MCV 94.3 MCH 31.9 MCHC 33.8 RDW 13.6 Plt Count 268 MPV 9.8 Immature Gran % (Auto) 0.9 H Neut % (Auto) 92.9 H Lymph % (Auto) 3.5 L [place] % (Auto) 2.3 Eos % (Auto) 0.2 Baso % (Auto) 0.2 Lymph # (Auto) 1.0 L [place] # (Auto) 0.7 Eos # (Auto) 0.1 Baso # (Auto) 0.1 Abs Immat Gran (auto) 0.25 H Absolute Neuts (auto) 26.5 H Absolute Nucleated RBC 0.000 Nucleated RBC % (auto) 0.0 Smear Tech's Comments VERIFIED Anion Gap 11 L 13 Estim Creat Clear Calc 104.1 108.1 Estimated GFR > 60 Random Glucose Fasting Glucose Calcium 06/24/23 06/24/23 05:15 05:15 MCV MCH MCHC RDW Plt Count MPV Immature Gran % (Auto) Neut % (Auto) Lymph % (Auto) [place] % (Auto) Eos % (Auto) Baso % (Auto) Lymph # (Auto) [place] # (Auto) Eos # (Auto) Baso # (Auto) Abs Immat Gran (auto) Absolute Neuts (auto) Absolute Nucleated RBC Nucleated RBC % (auto) Smear Tech's Comments Anion Gap Estim Creat Clear Calc Estimated GFR > 60 Random Glucose 135 H Fasting Glucose 136 H Calcium 9.2 9.0 Microbiology Microbiology Results: Microbiology 06/22/23 19:39 Blood Culture - Preliminary Blood - Venous No growth after 24 hours. 06/22/23 19:26 Blood Culture - Preliminary Blood - Venous No growth after 24 hours. Assessment and Plan (1) Allergic asthma with status asthmaticus: Status: Acute Plan 48M PMH severe persistent allergic asthma on prn home o2, opiate dependence, history of pe on eliquis, presented with ams, sob Acute on chronic hypoxic and hypercapnic respiratory failure complicated by acute metabolic encephalopathy due to severe persistent asthma with acute decompensation likely due to heroin use Mental status back to baseline PCO2 improved from about 100 to40 with BiPAP in ED Now weaned down to 4L saturating low 90s Continue Solu-Medrol, duo nebs Opiate dependence Methadone History of PE Eliquis Full code reason for continued hospitalization: hypoxia, wheezing, sob Quality Stroke Does the patient have a stroke diagnosis?: No VTE Prior VTE?: No VTE Risk Level:: Medical - moderate - high VTE Device Contraindication: Treatment Not Indicated VTE Drug Contraindication: N/A - Med Ordered
--- NOTE | 2023-06-24 12:40 | PC.NURSE ---
Pt much improved resp status from this AM. Less NICHOLE and less wheezing. Transition from oxy mask to NC
--- NOTE | 2023-06-24 15:22 | MHC.RECOVRN ---
Met with pt to follow up after adding 10 mg methadone at bedtime. Pt sitting in bed, awake, alert, easily engages in conversation, appears much more comfortable than yesterday. Pt reports methadone was effective and he was able to sleep through the night without withdrawal symptoms emerging. Pt would like to continue current regimen. Denies questions or concerns for t/w.
--- NOTE | 2023-06-24 15:59 | MHC.CM.PN ---
PT REPORTS HE IS LIVING WITH HIS GF WHILE HE APARTMENT IS BEING REMODELED HE SAYS HE IS INDEPENDENT WITH CARE AND HAS NO SERVICES HE SAYS HE IS O2 DEPENDENT, HOWEVER DOES NOT HAVE ANY EQUIPMENT OTHER THAN THE PORTABLE TANK HE STATES THE O2 COMPANY NEVER CAME TO DELIVER HIS CONCENTRATOR AND THAT IS WHY HE HAD TO COME BACK TO THE ED PT HAS A HCP ON FILE PCP:MEY WILSON DCP: HOME NO SERVICES VIA PRIVATE TRANSPORT
[2023-06-24] MEDS: methADONE HCl 20 MG/2 ML ORAL.CONC 10 MG PO (20:20)
[2023-06-24] MEDS: hydrOXYzine HCL 25 MG TABLET PO (20:28)
[2023-06-25] VITALS (12 sets, daily range): BP systolic 127–131; BP diastolic 70–86; PULSE 72–92; RESP 16–18; TEMP 36.2–36.6; O2SAT 86–97
[2023-06-25] MEDS: guaiFENesin DM 100/10/5 ML 5 ML SYRUP PO ×2 (04:41→17:54)
[2023-06-25 06:02] LABS: Hematocrit 38.1 % (42.0-52.0); Hemoglobin 12.6 g/dl (14.0-18.0); Mean Corpuscular HGB Conc 33.1 g/dl (31.0-36.0); Mean Corpuscular Hemoglobin 31.8 pg (27.0-33.0); Mean Corpuscular Volume 96.2 fL (80.0-98.0); Mean Platelet Volume 9.7 fL (9.4-12.4); Platelet Count 308 X10*3/uL (160-400); Red Blood Count 3.96 X10*6/uL (4.60-5.80); Red Cell Distribution Width 13.6 % (11.0-16.0); White Blood Count 20.5 X10*3/uL (4.8-10.8)
[2023-06-25 06:13] LABS: Anion Gap 14 (12-20); Blood Urea Nitrogen 21 mg/dL (9-16); Calcium 9.4 mg/dL (8.4-10.2); Carbon Dioxide 30 mmol/L (22-29); Chloride 102 mmol/L (96-108); Creatinine Clr Calc Pharmacy 101.5; Estimated Glomerular Filt Rate > 60; Glucose Fasting 105 mg/dL (60-99); Potassium 4.5 mmol/L (3.3-5.1); Sodium 141 mmol/L (135-145)
[2023-06-25] MEDS: Albuterol/Iprat 2.5/0.5MG 3 ML AMPUL.NEB INHALE ×3 (07:40→15:52)
--- NOTE | 2023-06-25 08:20 | P.PNIM_ITS ---
Subjective Subjective Date of Service: 06/25/23 Interval History: still with cough, sob, but improving Physical Exam 2 Vital Signs: Vital Signs: Last Vital Signs Temp 97.8 F 06/25/23 07:44 Pulse 72 06/25/23 07:44 Resp 16 06/25/23 07:44 BP 131/86 06/25/23 07:44 Pulse Ox 96 06/25/23 07:44 O2 Del Method Nasal Cannula 06/25/23 07:44 O2 Flow Rate 2 06/25/23 07:44 FiO2 35.6 06/23/23 07:24 Oxygen Flow Rate 15 06/22/23 18:10 BMI result Body Mass Index 23.2 General: AO X 3, less acute distress Resp: tight bilateral with diffuse exp wheezes, some accessory muscles used CVS: S1,S2,RRR GI: soft, non tender, non distended Neuro: motor grossly intact, alert Psych: appropriate affect, appropriate insight Objective Data Active Medications Acetaminophen (Acetaminophen 325 Mg Tablet) 650 mg PO Q6H PRN PRN Reason: Pain, Mild (Pain Scale 1-3) Albuterol/Ipratropium (Albuterol/Iprat 2.5/0.5mg 3 Ml Ampul.Neb) 3 ml INHALE RQ4H WHILE AWAKE [facility] Last Admin: 06/25/23 07:40 Dose: 3 ml Documented By: ANTONY Albuterol/Ipratropium (Albuterol/Iprat 2.5/0.5mg 3 Ml Ampul.Neb) 3 ml INHALE Q4H PRN PRN Reason: Wheezing Apixaban (Apixaban 5 Mg Tablet) 5 mg PO BID [facility] Last Admin: 06/24/23 20:20 Dose: 5 mg Documented By: JENY Guaifenesin/Dextromethorphan (Guaifenesin Dm 100/10/5 Ml 5 Ml Syrup) 5 ml PO Q4H PRN PRN Reason: Cough Last Admin: 06/25/23 04:41 Dose: 5 ml Documented By: JENY Hydroxyzine HCl (Hydroxyzine Hcl 25 Mg Tablet) 25 mg PO BID PRN PRN Reason: Anxiety Last Admin: 06/24/23 20:28 Dose: 25 mg Documented By: JENY Melatonin (Melatonin 3 Mg Tablet) 6 mg PO BEDTIME PRN PRN Reason: Insomnia Methadone HCl (Methadone Hcl 20 Mg/2 Ml Oral.Conc) 48 mg PO DAILY [facility] Last Admin: 06/24/23 07:27 Dose: 48 mg Documented By: ALCIDES Methadone HCl (Methadone Hcl 20 Mg/2 Ml Oral.Conc) 10 mg PO BEDTIME [facility] Last Admin: 06/24/23 20:20 Dose: 10 mg Documented By: JENY Methylprednisolone Sodium Succinate (Methylprednisolone Sod Succ 40 Mg/Ml Vial) 40 mg IVPUSH Q12H [facility] Last Admin: 06/24/23 20:20 Dose: 40 mg Documented By: JENY Ondansetron HCl (Ondansetron Hcl 4 Mg/2 Ml Vial) 4 mg IVPUSH Q8H PRN PRN Reason: Nausea and Vomiting Sodium Chloride (0.9 % Sodium Chloride Flush 3 Ml Syringe) 3 ml IVFLUSH QSHIFT [facility] Last Admin: 06/25/23 01:30 Dose: Not Given Documented By: JENY Non-Admin Reason: Previously Administered Labs 06/25/23 05:16 06/25/23 05:16 Labs: Laboratory Results - last 24 hr 06/25/23 05:16 MCV 96.2 MCH 31.8 MCHC 33.1 RDW 13.6 Plt Count 308 MPV 9.7 Absolute Nucleated RBC 0.000 Nucleated RBC % (auto) 0.0 Anion Gap 14 Estim Creat Clear Calc 101.5 Estimated GFR > 60 Fasting Glucose 105 H Calcium 9.4 Microbiology Microbiology Results: Microbiology 06/22/23 19:26 Blood Culture - Preliminary Blood - Venous No growth after 48 hours. 06/22/23 19:39 Blood Culture - Preliminary Blood - Venous No growth after 48 hours. Assessment and Plan (1) Allergic asthma with status asthmaticus: Status: Acute Plan 48M PMH severe persistent allergic asthma on prn home o2, opiate dependence, history of pe on eliquis, presented with ams, sob Acute on chronic hypoxic and hypercapnic respiratory failure complicated by acute metabolic encephalopathy due to severe persistent asthma with acute decompensation likely due to heroin use Mental status back to baseline PCO2 improved from about 100 to40 with BiPAP in ED Now weaned down to 2L saturating low 90s Continue Solu-Medrol, duo nebs Opiate dependence Methadone History of PE Eliquis Full code reason for continued hospitalization: hypoxia, wheezing, sob Quality Stroke Does the patient have a stroke diagnosis?: No VTE Prior VTE?: No VTE Risk Level:: Medical - moderate - high VTE Device Contraindication: Treatment Not Indicated VTE Drug Contraindication: N/A - Med Ordered
[2023-06-25] MEDS: 0.9 % Sodium Chloride Flush 3 ML SYRINGE IVFLUSH ×2 (08:37→16:49)
[2023-06-25] MEDS: Apixaban 5 MG TABLET PO ×2 (08:37→21:28)
[2023-06-25] MEDS: methylPREDNISolone Sod Succ 40 MG/ML VIAL IVPUSH ×2 (08:37→21:28)
[2023-06-25] MEDS: methADONE HCl 20 MG/2 ML ORAL.CONC 48 MG PO (09:58)
--- NOTE | 2023-06-25 11:38 | MHC.CM.PN ---
EMR REVIEWED AND PER MD ROUNDS, PT IS NOT MEDICALLY CLEARED FOR DC (REQUIRING SUPPLEMENTAL 02, HYPOXIA) CM WILL CONTINUE TO FOLLOW FOR ANY CHANGE IN DC NEEDS/PLAN.
[2023-06-25 13:15] LABS: VBG Base Excess 8.4 mmol/L; VBG HCO3 34 mmol/L (22-26); VBG pCO2 51 mmHg; VBG pH 7.42 (7.32-7.43); VBG pO2 71 mmHg
[2023-06-25 13:16] LABS: Venous Blood Gas Refer to POC result
--- NOTE | 2023-06-25 15:01 | MHC.RECOVRN ---
Met with pt in 377 to follow up regarding methadone dosing. Pt sitting in bed, awake, alert, easily engages in conversation. Pt continues to report positive effect with 48 mg methadone in the morning and additional 10 mg in the evening. Pt voices concern regarding getting to the [facility] due to difficulty breathing/walking to the program. Discussed possibility of VNA delivery, pt would like to pursue this route. Pt denies other questions or concerns. Spoke with pts [facility] who informed t/w they work with [employer]: turn off the lights VNA for methadone delivery and that once pt presents to the [facility] they would be able to send referral. [facility] RN reports [place] [facility] [place]. Discussed with CM and provider.
[2023-06-25] MEDS: methADONE HCl 20 MG/2 ML ORAL.CONC 10 MG PO (21:28)
[2023-06-26] VITALS (15 sets, daily range): BP systolic 119–148; BP diastolic 77–95; PULSE 78–109; RESP 16–22; TEMP 36.2–36.8; O2SAT 92–100
[2023-06-26] MEDS: guaiFENesin DM 100/10/5 ML 5 ML SYRUP PO ×2 (03:09→17:50)
[2023-06-26] MEDS: Albuterol/Iprat 2.5/0.5MG 3 ML AMPUL.NEB INHALE ×5 (03:33→19:42)
[2023-06-26] MEDS: methylPREDNISolone Sod Succ 125 MG/2 ML VIAL IVPUSH (04:05)
[2023-06-26 04:21] LABS: ABG Base Excess 11.9 mmol/L; ABG HCO3 38 mmol/L (22-26); ABG pCO2 55 mmHg (32-45); ABG pH 7.44 (7.35-7.45); ABG pO2 63 mmHg (83-108)
--- NOTE | 2023-06-26 05:03 | PM.EVENT ---
Event Note Date of Service: 06/26/23 Event Note: 3:53 AM - I was contacted by nursing that patient's oxygen saturation dropped to the 80s. Patient evaluated. He was very tachypneic and speaking short sentences. He was receiving stat nebulizer. Solu-Medrol 125 mg IV x1 given stat. ABG stat showed pH of 7.44, pCO2 55 PO2 63 and bicarb 38 and O2 sat of 89 % (ventimask 35%). CXR stat is similar to prior. Therapy with high flow was initiated. Time Spent With Patient Time: Total time managing care of this patient today ____ minutes.
--- NOTE | 2023-06-26 05:40 | PC.NURSE ---
at 0350, pt woke up with a persistent cough and increased SOB, tacypneic and desating to mid 80s, RT was asked to come a neb, O2 put up to 6L/min via NC, prn Guiafenisin po given, all of which has no effect, O2 put up to 5L/min via Oxy mask by RT, Dr. Painter was asked to come see the pt, Dr. Painter came, Solumedrol 125 mg IV stat given, CXR and ABG done, resluts seen by , pt was put on Hiflo cont, O2 was maintained at mid -high 90s, pt verbalized a bit of relief.
[2023-06-26] MEDS: 0.9 % Sodium Chloride Flush 3 ML SYRINGE IVFLUSH ×3 (08:47→20:18)
[2023-06-26] MEDS: methADONE HCl 20 MG/2 ML ORAL.CONC 48 MG PO (08:48)
[2023-06-26] MEDS: Apixaban 5 MG TABLET PO ×2 (08:49→20:17)
[2023-06-26] MEDS: methylPREDNISolone Sod Succ 40 MG/ML VIAL IVPUSH ×2 (08:50→20:17)
--- NOTE | 2023-06-26 09:11 | HO.PM.IMPN ---
Subjective Subjective Date of Service: 06/26/23 Interval History: worsening hypoxia overnight, restarted on high flow Physical Exam Vital Signs: Vital Signs: Last Vital Signs Temp 97.1 F 06/26/23 07:11 Pulse 80 06/26/23 08:04 Resp 18 06/26/23 08:04 BP 137/90 H 06/26/23 07:11 Pulse Ox 100 06/26/23 07:11 O2 Del Method High Flow Nasal C annula 06/26/23 07:11 O2 Flow Rate 6 06/26/23 07:11 FiO2 50 06/26/23 07:11 Oxygen Flow Rate 15 06/22/23 18:10 BMI result Body Mass Index 23.2 General: AO X 3, some acute distress Resp: diffuse wheesing bilateral, mild accessory muscles used CVS: S1,S2,RRR GI: soft, non tender, non distended Neuro: motor grossly intact, alert Psych: appropriate affect, appropriate insight Objective Data Active Medications Acetaminophen (Acetaminophen 325 Mg Tablet) 650 mg PO Q6H PRN PRN Reason: Pain, Mild (Pain Scale 1-3) Albuterol/Ipratropium (Albuterol/Iprat 2.5/0.5mg 3 Ml Ampul.Neb) 3 ml INHALE RQ4H WHILE AWAKE [facility] Last Admin: 06/26/23 08:02 Dose: 3 ml Documented By: VALERIANO Albuterol/Ipratropium (Albuterol/Iprat 2.5/0.5mg 3 Ml Ampul.Neb) 3 ml INHALE Q4H PRN PRN Reason: Wheezing Last Admin: 06/26/23 03:33 Dose: 3 ml Documented By: MARYJANE Apixaban (Apixaban 5 Mg Tablet) 5 mg PO BID [facility] Last Admin: 06/26/23 08:49 Dose: 5 mg Documented By: TOYA Guaifenesin/Dextromethorphan (Guaifenesin Dm 100/10/5 Ml 5 Ml Syrup) 5 ml PO Q4H PRN PRN Reason: Cough Last Admin: 06/26/23 03:09 Dose: 5 ml Documented By: CASTILAna Maria Hydroxyzine HCl (Hydroxyzine Hcl 25 Mg Tablet) 25 mg PO BID PRN PRN Reason: Anxiety Last Admin: 06/24/23 20:28 Dose: 25 mg Documented By: JENY Melatonin (Melatonin 3 Mg Tablet) 6 mg PO BEDTIME PRN PRN Reason: Insomnia Methadone HCl (Methadone Hcl 20 Mg/2 Ml Oral.Conc) 48 mg PO DAILY [facility] Last Admin: 06/26/23 08:48 Dose: 48 mg Documented By: TOYA Methadone HCl (Methadone Hcl 20 Mg/2 Ml Oral.Conc) 10 mg PO BEDTIME [facility] Last Admin: 06/25/23 21:28 Dose: 10 mg Documented By: KIMBERLEY Methylprednisolone Sodium Succinate (Methylprednisolone Sod Succ 40 Mg/Ml Vial) 40 mg IVPUSH Q12H [facility] Last Admin: 06/26/23 08:50 Dose: 40 mg Documented By: TOYA Morphine Sulfate (Morphine Sulfate 2 Mg/Ml Cartridge) 2 mg IVPUSH ONCE PRN; Protocol PRN Reason: Dyspnea Ondansetron HCl (Ondansetron Hcl 4 Mg/2 Ml Vial) 4 mg IVPUSH Q8H PRN PRN Reason: Nausea and Vomiting Sodium Chloride (0.9 % Sodium Chloride Flush 3 Ml Syringe) 3 ml IVFLUSH QSHIFT [facility] Last Admin: 06/26/23 08:47 Dose: 3 ml Documented By: TOYA Labs 06/25/23 05:16 06/25/23 05:16 Labs: Laboratory Results - last 24 hr 06/25/23 06/26/23 13:08 04:13 O2 Saturation 89.0 ABG pH at Pt Temp 7.44 ABG pCO2 at Pt Temp 55 H ABG pO2 at Pt Temp 63 L ABG HCO3 38 H ABG Base Excess (Actual) 11.9 VBG pH 7.42 VBG pCO2 51 VBG pO2 71 VBG HCO3 34 H VBG O2 Saturation 93.0 VBG Base Excess 8.4 Assessment and Plan (1) Allergic asthma with status asthmaticus: Status: Acute Plan 48M PMH severe persistent allergic asthma on prn home o2, opiate dependence, history of pe on eliquis, presented with ams, sob Acute on chronic hypoxic and hypercapnic respiratory failure complicated by acute metabolic encephalopathy due to severe persistent asthma with acute decompensation/status asthmaticus likely due to heroin use Mental status back to baseline PCO2 about 100 on admission now in 50s initially weaned to 2L, but hypoxic to low 80s overnight, placed back on high flow, transfer to [facility] continue to wean Continue Solu-Medrol, duo nebs Opiate dependence Methadone History of PE Eliquis Full code reason for continued hospitalization: hypoxia, wheezing, sob Quality Stroke Does the patient have a stroke diagnosis?: No VTE Prior VTE?: No VTE Risk Level:: Medical - moderate - high VTE Device Contraindication: Treatment Not Indicated VTE Drug Contraindication: N/A - Med Ordered
[2023-06-26 10:33] LABS: Venous Blood Gas Refer to POC result
--- NOTE | 2023-06-26 10:44 | PC.NURSE ---
Pt. on High flow sec increased WOB, hypoxia, transferred to [facility] for close monitoring.
[2023-06-26] MEDS: methADONE HCl 20 MG/2 ML ORAL.CONC 10 MG PO (20:17)
[2023-06-26] MEDS: hydrOXYzine HCL 25 MG TABLET PO (22:35)
[2023-06-27] VITALS (13 sets, daily range): BP systolic 118–135; BP diastolic 70–91; PULSE 69–105; RESP 17–20; TEMP 36–36.9; O2SAT 92–98
[2023-06-27 06:51] LABS: Hematocrit 41.6 % (42.0-52.0); Hemoglobin 13.8 g/dl (14.0-18.0); Mean Corpuscular HGB Conc 33.2 g/dl (31.0-36.0); Mean Corpuscular Hemoglobin 31.1 pg (27.0-33.0); Mean Corpuscular Volume 93.7 fL (80.0-98.0); Mean Platelet Volume 9.6 fL (9.4-12.4); Platelet Count 303 X10*3/uL (160-400); Red Blood Count 4.44 X10*6/uL (4.60-5.80); Red Cell Distribution Width 13.2 % (11.0-16.0)
[2023-06-27 07:11] LABS: Anion Gap 9 (12-20); Blood Urea Nitrogen 24 mg/dL (9-16); Calcium 9.4 mg/dL (8.4-10.2); Carbon Dioxide 36 mmol/L (22-29); Chloride 100 mmol/L (96-108); Creatinine Clr Calc Pharmacy 104.1; Estimated Glomerular Filt Rate > 60; Glucose Fasting 134 mg/dL (60-99); Potassium 4.6 mmol/L (3.3-5.1); Sodium 140 mmol/L (135-145)
[2023-06-27] MEDS: Albuterol/Iprat 2.5/0.5MG 3 ML AMPUL.NEB INHALE ×4 (07:40→20:09)
[2023-06-27] MEDS: methylPREDNISolone Sod Succ 40 MG/ML VIAL IVPUSH ×2 (07:54→21:00)
[2023-06-27] MEDS: methADONE HCl 20 MG/2 ML ORAL.CONC 48 MG PO (07:54)
[2023-06-27] MEDS: Apixaban 5 MG TABLET PO ×2 (07:55→21:00)
[2023-06-27] MEDS: 0.9 % Sodium Chloride Flush 3 ML SYRINGE IVFLUSH ×2 (07:55→15:15)
--- NOTE | 2023-06-27 09:09 | P.PNIM_ITS ---
Subjective Subjective Date of Service: 06/27/23 Interval History: feeling better today, still very wheezy Physical Exam 2 Vital Signs: Vital Signs: Last Vital Signs Temp 97.2 F 06/27/23 07:32 Pulse 69 06/27/23 07:42 Resp 18 06/27/23 07:42 BP 132/91 H 06/27/23 07:32 Pulse Ox 98 06/27/23 07:32 O2 Del Method High Flow Nasal C annula 06/27/23 07:32 O2 Flow Rate 40 06/27/23 07:32 FiO2 50 06/27/23 07:32 Oxygen Flow Rate 15 06/22/23 18:10 BMI result Body Mass Index 23.2 General: AO X 3, some acute distress Resp: diffuse wheesing bilateral, mild accessory muscles used CVS: S1,S2,RRR GI: soft, non tender, non distended Neuro: motor grossly intact, alert Psych: appropriate affect, appropriate insight Objective Data Active Medications Acetaminophen (Acetaminophen 325 Mg Tablet) 650 mg PO Q6H PRN PRN Reason: Pain, Mild (Pain Scale 1-3) Albuterol/Ipratropium (Albuterol/Iprat 2.5/0.5mg 3 Ml Ampul.Neb) 3 ml INHALE RQ4H WHILE AWAKE [facility] Last Admin: 06/27/23 07:40 Dose: 3 ml Documented By: SHOSHANA Albuterol/Ipratropium (Albuterol/Iprat 2.5/0.5mg 3 Ml Ampul.Neb) 3 ml INHALE Q4H PRN PRN Reason: Wheezing Last Admin: 06/26/23 03:33 Dose: 3 ml Documented By: MARYJANE Apixaban (Apixaban 5 Mg Tablet) 5 mg PO BID [facility] Last Admin: 06/27/23 07:55 Dose: 5 mg Documented By: CANDACE Guaifenesin/Dextromethorphan (Guaifenesin Dm 100/10/5 Ml 5 Ml Syrup) 5 ml PO Q4H PRN PRN Reason: Cough Last Admin: 06/26/23 17:50 Dose: 5 ml Documented By: HARMONY Hydroxyzine HCl (Hydroxyzine Hcl 25 Mg Tablet) 25 mg PO BID PRN PRN Reason: Anxiety Last Admin: 06/26/23 22:35 Dose: 25 mg Documented By: RANDY Melatonin (Melatonin 3 Mg Tablet) 6 mg PO BEDTIME PRN PRN Reason: Insomnia Methadone HCl (Methadone Hcl 20 Mg/2 Ml Oral.Conc) 48 mg PO DAILY [facility] Last Admin: 06/27/23 07:54 Dose: 48 mg Documented By: CANDACE Methadone HCl (Methadone Hcl 20 Mg/2 Ml Oral.Conc) 10 mg PO BEDTIME [facility] Last Admin: 06/26/23 20:17 Dose: 10 mg Documented By: RANDY Methylprednisolone Sodium Succinate (Methylprednisolone Sod Succ 40 Mg/Ml Vial) 40 mg IVPUSH Q12H [facility] Last Admin: 06/27/23 07:54 Dose: 40 mg Documented By: CANDACE Morphine Sulfate (Morphine Sulfate 2 Mg/Ml Cartridge) 2 mg IVPUSH ONCE PRN; Protocol PRN Reason: Dyspnea Ondansetron HCl (Ondansetron Hcl 4 Mg/2 Ml Vial) 4 mg IVPUSH Q8H PRN PRN Reason: Nausea and Vomiting Sodium Chloride (0.9 % Sodium Chloride Flush 3 Ml Syringe) 3 ml IVFLUSH QSHIFT [facility] Last Admin: 06/27/23 07:55 Dose: 3 ml Documented By: CANDACE Labs 06/27/23 06:13 06/27/23 06:13 Labs: Laboratory Results - last 24 hr 06/27/23 06:13 MCV 93.7 MCH 31.1 MCHC 33.2 RDW 13.2 Plt Count 303 MPV 9.6 Absolute Nucleated RBC 0.000 Nucleated RBC % (auto) 0.0 Anion Gap 9 L Estim Creat Clear Calc 104.1 Estimated GFR > 60 Fasting Glucose 134 H Calcium 9.4 Assessment and Plan (1) Allergic asthma with status asthmaticus: Status: Acute Plan 48M PMH severe persistent allergic asthma on prn home o2, opiate dependence, history of pe on eliquis, presented with ams, sob Acute on chronic hypoxic and hypercapnic respiratory failure complicated by acute metabolic encephalopathy due to severe persistent asthma with acute decompensation/status asthmaticus likely due to heroin use Mental status back to baseline PCO2 about 100 on admission now in 50s placed back on high michi 06/26/23, now titrated down to 30L, 40% satting 93% continue to wean Continue Solu-Medrol, duo nebs Opiate dependence Methadone History of PE Eliquis Full code reason for continued hospitalization: hypoxia, wheezing, sob Quality Stroke Does the patient have a stroke diagnosis?: No VTE Prior VTE?: No VTE Risk Level:: Medical - moderate - high VTE Device Contraindication: Treatment Not Indicated VTE Drug Contraindication: N/A - Med Ordered
[2023-06-27] MEDS: hydrOXYzine HCL 25 MG TABLET PO (12:00)
--- NOTE | 2023-06-27 15:02 | MHC.CM.PN ---
EMR reviewed and per MD rounds, pt is not medically cleared for D/C due to ongoing management of dyspnea and hypoxia, with pt remaining on hi-flow O2.
[2023-06-27] MEDS: methADONE HCl 20 MG/2 ML ORAL.CONC 10 MG PO (21:00)
[2023-06-28] MEDS: 0.9 % Sodium Chloride Flush 3 ML SYRINGE IVFLUSH ×3 (00:40→15:24)
[2023-06-28] MEDS: guaiFENesin DM 100/10/5 ML 5 ML SYRUP PO ×2 (03:24→15:24)
[2023-06-28 03:46] VITALS: BP 129/76; PULSE 92; RESP 18; TEMP 36.4; O2SAT 93
[2023-06-28 06:07] LABS: VBG Base Excess 10.7 mmol/L; VBG HCO3 37 mmol/L (22-26); VBG pCO2 57 mmHg; VBG pH 7.41 (7.32-7.43); VBG pO2 101 mmHg
[2023-06-28 06:08] LABS: Venous Blood Gas Refer to POC result
[2023-06-28 06:12] LABS: Hematocrit 40.3 % (42.0-52.0); Hemoglobin 13.2 g/dl (14.0-18.0); Mean Corpuscular HGB Conc 32.8 g/dl (31.0-36.0); Mean Corpuscular Hemoglobin 31.2 pg (27.0-33.0); Mean Corpuscular Volume 95.3 fL (80.0-98.0); Mean Platelet Volume 9.5 fL (9.4-12.4); Platelet Count 302 X10*3/uL (160-400); Red Blood Count 4.23 X10*6/uL (4.60-5.80); Red Cell Distribution Width 13.4 % (11.0-16.0); White Blood Count 13.8 X10*3/uL (4.8-10.8)
[2023-06-28 06:25] LABS: Anion Gap 13 (12-20); Blood Urea Nitrogen 25 mg/dL (9-16); Calcium 9.2 mg/dL (8.4-10.2); Carbon Dioxide 31 mmol/L (22-29); Chloride 100 mmol/L (96-108); Creatinine Clr Calc Pharmacy 114.1; Estimated Glomerular Filt Rate > 60; Glucose Fasting 121 mg/dL (60-99); Potassium 4.5 mmol/L (3.3-5.1); Sodium 139 mmol/L (135-145)
[2023-06-28 07:37] VITALS: BP 128/68; PULSE 75; RESP 18; TEMP 36.2; O2SAT 95
--- NOTE | 2023-06-28 08:50 | HO.PM.IMPN ---
Subjective Subjective Date of Service: 06/28/23 Interval History: feeling better, taken off high flow, still very wheezy Physical Exam Vital Signs: Vital Signs: Last Vital Signs Temp 97.2 F 06/28/23 07:37 Pulse 75 06/28/23 07:37 Resp 18 06/28/23 07:37 BP 128/68 06/28/23 07:37 Pulse Ox 95 06/28/23 07:37 O2 Del Method Nasal Cannula 06/28/23 07:37 O2 Flow Rate 4 06/28/23 07:37 FiO2 40 06/27/23 23:34 Oxygen Flow Rate 15 06/22/23 18:10 BMI result Body Mass Index 23.2 General: AO X 3, some acute distress Resp: diffuse wheesing bilateral, mild accessory muscles used CVS: S1,S2,RRR GI: soft, non tender, non distended Neuro: motor grossly intact, alert Psych: appropriate affect, appropriate insight Objective Data Active Medications Acetaminophen (Acetaminophen 325 Mg Tablet) 650 mg PO Q6H PRN PRN Reason: Pain, Mild (Pain Scale 1-3) Albuterol/Ipratropium (Albuterol/Iprat 2.5/0.5mg 3 Ml Ampul.Neb) 3 ml INHALE RQ4H WHILE AWAKE [facility] Last Admin: 06/28/23 08:32 Dose: Not Given Documented By: SHOSHANA Non-Admin Reason: Patient Refused Albuterol/Ipratropium (Albuterol/Iprat 2.5/0.5mg 3 Ml Ampul.Neb) 3 ml INHALE Q4H PRN PRN Reason: Wheezing Last Admin: 06/26/23 03:33 Dose: 3 ml Documented By: MARYJANE Apixaban (Apixaban 5 Mg Tablet) 5 mg PO BID [facility] Last Admin: 06/27/23 21:00 Dose: 5 mg Documented By: INOCENCIA Guaifenesin/Dextromethorphan (Guaifenesin Dm 100/10/5 Ml 5 Ml Syrup) 5 ml PO Q4H PRN PRN Reason: Cough Last Admin: 06/28/23 03:24 Dose: 5 ml Documented By: MICHAEL Hydroxyzine HCl (Hydroxyzine Hcl 25 Mg Tablet) 25 mg PO BID PRN PRN Reason: Anxiety Last Admin: 06/27/23 12:00 Dose: 25 mg Documented By: CANDACE Melatonin (Melatonin 3 Mg Tablet) 6 mg PO BEDTIME PRN PRN Reason: Insomnia Methadone HCl (Methadone Hcl 20 Mg/2 Ml Oral.Conc) 48 mg PO DAILY [facility] Last Admin: 06/27/23 07:54 Dose: 48 mg Documented By: CANDACE Methadone HCl (Methadone Hcl 20 Mg/2 Ml Oral.Conc) 10 mg PO BEDTIME [facility] Last Admin: 06/27/23 21:00 Dose: 10 mg Documented By: INOCENCIA Methylprednisolone Sodium Succinate (Methylprednisolone Sod Succ 40 Mg/Ml Vial) 40 mg IVPUSH Q12H [facility] Last Admin: 06/27/23 21:00 Dose: 40 mg Documented By: INOCENCIA Morphine Sulfate (Morphine Sulfate 2 Mg/Ml Cartridge) 2 mg IVPUSH ONCE PRN; Protocol PRN Reason: Dyspnea Ondansetron HCl (Ondansetron Hcl 4 Mg/2 Ml Vial) 4 mg IVPUSH Q8H PRN PRN Reason: Nausea and Vomiting Sodium Chloride (0.9 % Sodium Chloride Flush 3 Ml Syringe) 3 ml IVFLUSH QSHIFT [facility] Last Admin: 06/28/23 00:40 Dose: 3 ml Documented By: MICHAEL Labs 06/28/23 05:52 06/28/23 05:52 Labs: Laboratory Results - last 24 hr 06/28/23 06/28/23 05:52 05:59 MCV 95.3 MCH 31.2 MCHC 32.8 RDW 13.4 Plt Count 302 MPV 9.5 Absolute Nucleated RBC 0.000 Nucleated RBC % (auto) 0.0 VBG pH 7.41 VBG pCO2 57 VBG pO2 101 VBG HCO3 37 H VBG O2 Saturation 99.0 VBG Base Excess 10.7 Anion Gap 13 Estim Creat Clear Calc 114.1 Estimated GFR > 60 Fasting Glucose 121 H Calcium 9.2 Microbiology Microbiology Results: Microbiology 06/22/23 19:26 Blood Culture - Final Blood - Venous No growth after 5 days. 06/22/23 19:39 Blood Culture - Final Blood - Venous No growth after 5 days. Assessment and Plan (1) Allergic asthma with status asthmaticus: Status: Acute Plan 48M PMH severe persistent allergic asthma on prn home o2, opiate dependence, history of pe on eliquis, presented with ams, sob Acute on chronic hypoxic and hypercapnic respiratory failure complicated by acute metabolic encephalopathy due to severe persistent asthma with acute decompensation/status asthmaticus likely due to heroin use Mental status back to baseline PCO2 about 100 on admission now in 50s weaned off high flow this morning on 4L saturation low 90s continue to wean Continue Solu-Medrol, duo nebs Opiate dependence Methadone History of PE Lidaquis Full code reason for continued hospitalization: hypoxia, wheezing, sob Quality Stroke Does the patient have a stroke diagnosis?: No VTE Prior VTE?: No VTE Risk Level:: Medical - moderate - high VTE Device Contraindication: Treatment Not Indicated VTE Drug Contraindication: N/A - Med Ordered
[2023-06-28] MEDS: methADONE HCl 20 MG/2 ML ORAL.CONC 48 MG PO (09:12)
[2023-06-28] MEDS: Apixaban 5 MG TABLET PO ×2 (09:13→20:38)
[2023-06-28] MEDS: methylPREDNISolone Sod Succ 40 MG/ML VIAL IVPUSH ×2 (09:13→20:38)
[2023-06-28 11:11] VITALS: BP 134/83; PULSE 96; RESP 16; TEMP 36.6; O2SAT 94
[2023-06-28 11:58] VITALS: PULSE 96; RESP 16; O2SAT 95
[2023-06-28] MEDS: Albuterol/Iprat 2.5/0.5MG 3 ML AMPUL.NEB INHALE (11:58)
[2023-06-28] MEDS: hydrOXYzine HCL 25 MG TABLET PO (15:24)
[2023-06-28 15:34] VITALS: BP 151/78; PULSE 85; RESP 17; TEMP 36.6; O2SAT 92
[2023-06-28 19:08] VITALS: BP 133/79; PULSE 92; RESP 17; TEMP 36.9; O2SAT 94
[2023-06-28] MEDS: methADONE HCl 20 MG/2 ML ORAL.CONC 10 MG PO (20:37)
[2023-06-29] VITALS (12 sets, daily range): BP systolic 114–132; BP diastolic 68–94; PULSE 64–118; RESP 18–20; TEMP 36.2–36.8; O2SAT 86–97
[2023-06-29] MEDS: 0.9 % Sodium Chloride Flush 3 ML SYRINGE IVFLUSH ×4 (00:16→21:00)
[2023-06-29] MEDS: methADONE HCl 20 MG/2 ML ORAL.CONC 48 MG PO (08:18)
[2023-06-29] MEDS: methylPREDNISolone Sod Succ 40 MG/ML VIAL IVPUSH ×2 (08:18→20:59)
[2023-06-29] MEDS: Apixaban 5 MG TABLET PO ×2 (08:18→21:00)
[2023-06-29] MEDS: Albuterol/Iprat 2.5/0.5MG 3 ML AMPUL.NEB INHALE ×4 (08:55→19:32)
--- NOTE | 2023-06-29 11:05 | HO.PM.IMPN ---
Subjective Subjective Date of Service: 06/29/23 Interval History: feeling better, taken off high flow, still very wheezy. dropped to 86% on RA, Currently on 3L Constitutional Constitutional: Reports fatigue, Reports malaise and Reports weakness Cardiovascular Cardiovascular: Reports dyspnea on exertion Respiratory Respiratory: Reports cough, Reports dyspnea on exertion and Reports wheezing Gastrointestinal Gastrointestinal: Reports no additional gastrointestinal complaints Genitourinary Genitourinary: Reports no additional male genitourinary complaints Musculoskeletal Musculoskeletal: Reports no additional musculoskeletal complaints Neurologic Neurologic: Reports weakness Endocrine Endocrine: Reports fatigue Allergic/Immunologic Allergic/Immunologic: Reports wheezing Physical Exam Vital Signs: Vital Signs: Last Vital Signs Temp 98.3 F 06/29/23 07:40 Pulse 86 06/29/23 08:55 Resp 20 06/29/23 08:55 BP 122/77 06/29/23 07:40 Pulse Ox 96 06/29/23 07:40 O2 Del Method Nasal Cannula 06/29/23 07:40 O2 Flow Rate 4 06/29/23 07:40 FiO2 40 06/27/23 23:34 Oxygen Flow Rate 15 06/22/23 18:10 BMI result Body Mass Index 23.2 General: AO X 3, some acute distress Resp: diffuse wheesing bilateral, mild accessory muscles used CVS: S1,S2,RRR GI: soft, non tender, non distended Neuro: motor grossly intact, alert Psych: appropriate affect, appropriate insight Resp: Effort & Inspection: audible wheezes and tachypneic Objective Data Active Medications Acetaminophen (Acetaminophen 325 Mg Tablet) 650 mg PO Q6H PRN PRN Reason: Pain, Mild (Pain Scale 1-3) Albuterol/Ipratropium (Albuterol/Iprat 2.5/0.5mg 3 Ml Ampul.Neb) 3 ml INHALE RQ4H WHILE AWAKE [facility] Last Admin: 06/29/23 08:55 Dose: 3 ml Documented By: BOBBY Albuterol/Ipratropium (Albuterol/Iprat 2.5/0.5mg 3 Ml Ampul.Neb) 3 ml INHALE Q4H PRN PRN Reason: Wheezing Last Admin: 06/26/23 03:33 Dose: 3 ml Documented By: MARYJANE Apixaban (Apixaban 5 Mg Tablet) 5 mg PO BID [facility] Last Admin: 06/29/23 08:18 Dose: 5 mg Documented By: KERI Guaifenesin/Dextromethorphan (Guaifenesin Dm 100/10/5 Ml 5 Ml Syrup) 5 ml PO Q4H PRN PRN Reason: Cough Last Admin: 06/28/23 15:24 Dose: 5 ml Documented By: CANDACE Hydroxyzine HCl (Hydroxyzine Hcl 25 Mg Tablet) 25 mg PO BID PRN PRN Reason: Anxiety Last Admin: 06/28/23 15:24 Dose: 25 mg Documented By: CANDACE Melatonin (Melatonin 3 Mg Tablet) 6 mg PO BEDTIME PRN PRN Reason: Insomnia Methadone HCl (Methadone Hcl 20 Mg/2 Ml Oral.Conc) 48 mg PO DAILY [facility] Last Admin: 06/29/23 08:18 Dose: 48 mg Documented By: KERI Methadone HCl (Methadone Hcl 20 Mg/2 Ml Oral.Conc) 10 mg PO BEDTIME [facility] Last Admin: 06/28/23 20:37 Dose: 10 mg Documented By: OTTO Methylprednisolone Sodium Succinate (Methylprednisolone Sod Succ 40 Mg/Ml Vial) 40 mg IVPUSH Q12H [facility] Last Admin: 06/29/23 08:18 Dose: 40 mg Documented By: KERI Morphine Sulfate (Morphine Sulfate 2 Mg/Ml Cartridge) 2 mg IVPUSH ONCE PRN; Protocol PRN Reason: Dyspnea Ondansetron HCl (Ondansetron Hcl 4 Mg/2 Ml Vial) 4 mg IVPUSH Q8H PRN PRN Reason: Nausea and Vomiting Sodium Chloride (0.9 % Sodium Chloride Flush 3 Ml Syringe) 3 ml IVFLUSH QSHIFT [facility] Last Admin: 06/29/23 08:19 Dose: 3 ml Documented By: KERI Labs 06/28/23 05:52 06/28/23 05:52 Assessment and Plan (1) Acute on chronic respiratory failure with hypoxia and hypercapnia: Status: Acute Plan 48M PMH severe persistent allergic asthma on prn home o2, opiate dependence, history of pe on eliquis, presented with ams, sob Acute on chronic hypoxic and hypercapnic respiratory failure complicated by acute metabolic encephalopathy due to severe persistent asthma with acute decompensation/status asthmaticus likely due to heroin use Mental status back to baseline PCO2 about 100 on admission now in 50s weaned off high flow this morning on 3L saturation low 90s. 86% on RA continue to wean Continue Solu-Medrol, duo nebs Opiate dependence Methadone History of PE Eliquis Full code reason for continued hospitalization: hypoxia, wheezing, sob Quality Stroke Does the patient have a stroke diagnosis?: No VTE Prior VTE?: No VTE Risk Level:: Medical - moderate - high VTE Device Contraindication: Treatment Not Indicated VTE Drug Contraindication: N/A - Med Ordered
--- NOTE | 2023-06-29 11:59 | MHC.CM.PN ---
Patient is not yet medically cleared for dc (Hypoxia & SOB); Home is the goal and CM will continue to follow.
[2023-06-29] MEDS: methADONE HCl 20 MG/2 ML ORAL.CONC 10 MG PO (20:59)
[2023-06-30] MEDS: guaiFENesin DM 100/10/5 ML 5 ML SYRUP PO ×2 (00:39→08:05)
[2023-06-30] MEDS: hydrOXYzine HCL 25 MG TABLET PO (00:39)
[2023-06-30] MEDS: Melatonin 3 MG TABLET 6 MG PO (00:40)
[2023-06-30 04:00] VITALS: O2SAT 95
[2023-06-30 05:31] VITALS: BP 140/66; PULSE 75; RESP 20; TEMP 36.1; O2SAT 95
[2023-06-30 06:06] VITALS: BP 138/85; PULSE 73; RESP 18; TEMP 36.3; O2SAT 93
[2023-06-30 07:45] VITALS: BP 119/68; PULSE 77; RESP 18; TEMP 36.1; O2SAT 93
[2023-06-30] MEDS: methylPREDNISolone Sod Succ 40 MG/ML VIAL IVPUSH (08:05)
[2023-06-30] MEDS: methADONE HCl 20 MG/2 ML ORAL.CONC 48 MG PO (08:05)
[2023-06-30] MEDS: Apixaban 5 MG TABLET PO (08:05)
[2023-06-30] MEDS: 0.9 % Sodium Chloride Flush 3 ML SYRINGE IVFLUSH (08:06)
--- NOTE | 2023-06-30 09:11 | P.DS_ITS ---
DS: Providers Provider Date of Service: 06/30/23 Date of admission: 06/23/23 05:34 Primary care physician: JOHANN Dunn Consults: 06/23/23 05:52 Addiction Medicine Routine Consulting Provider: Valerie Covering Reason for consultation: opioid use disorder DS: Diagnosis Discharge Diagnosis (1) Acute on chronic respiratory failure with hypoxia and hypercapnia: Status: Acute DS: Summary Hospital Course Hospital Course: HPI: This is a 48-year-old male with pertinent history of chronic hypoxemic respiratory failure due to asthma on oxygen as needed, opioid use disorder on methadone, history of PE on Eliquis presents to the emergency department for evaluation of dyspnea and wheezing. Patient states his symptoms have been ongoing for a while but worsened in the last 1 week. He is complaining of dyspnea which is worse with exertion. Also has cough with intermittent sputum production and wheezing. Patient ran out of his home oxygen. No palpitations, orthopnea, PND, abdominal pain, changes in urinary or bowel habits. As per EMS, patient was found to be saturating 82% on room air and was confused. He admits to using heroin 1 day prior to presentation. Hospital course: Patient initially required BiPAP for hypercapnia. He was admitted with high-flow nasal cannula which was weaned down. Scheduled and p.r.n. DuoNebs continued throughout hospital course. Patient was initiated on IV systemic steroids during hospitalization. Prior to discharge, patient satting in the high 80s on room air. States he previously had oxygen but ran out of it. Home O2 eval prior to discharge and patient will be discharged with home oxygen. Will also give a prescription for p.o. prednisone. He was continued on methadone for opiate dependence and Eliquis for history of PE. Status at Discharge Functional status at discharge: independent ambulation Overall status at discharge: patient is back to baseline Time Attestation Discharge Coordination Time (in mins): 20 Quality: Safe Use of Opioids Does Pt have an Active Cancer Diagnosis on the Problem List?: No Quality: Stroke Does the patient have a stroke diagnosis?: No Physical Exam Vital Signs: Vital Signs: Last Vital Signs Temp 97.0 F 06/30/23 07:45 Pulse 77 06/30/23 07:45 Resp 18 06/30/23 07:45 BP 119/68 06/30/23 07:45 Pulse Ox 93 06/30/23 07:45 O2 Del Method Nasal Cannula 06/30/23 07:45 O2 Flow Rate 2 06/30/23 07:45 FiO2 40 06/27/23 23:34 Oxygen Flow Rate 15 06/22/23 18:10 BMI result Body Mass Index 23.2 General: AO X 3, s ome acute distress Resp: Wheezing i mproved CVS: S1,S2 ,RRR GI: soft, non tender, non diste nded Neuro: motor grossly intact, a lert Psych: approp riate affect, appr opriate insight DS: Data Data Completed and Pending Completed studies during hospitalization [Text1]: Procedures Assistance with Respiratory Ventilation, Less than 24 Consecutive Hours, Continuous Positive Airway Pressure (04/27/23) Imaging Chest x-ray: Radiologist's impression: ITS Impressions Chest X-Ray 06/22/23 18:42 IMPRESSION: 1. Mild chronic interstitial thickening with air trapping. 2. No focal consolidation or pleural effusion. 3. Limited evaluation of the right apex due to overlying external device. There is an equivocal approximately 0.8 cm nodule projecting in between the posterior fourth and fifth ribs, new compared to 04/27/2023; recommend repeat radiograph with removal of overlying devices. Chest X-Ray 06/26/23 04:15 IMPRESSION: 1. No acute cardiopulmonary disease. 2. Hyperinflated lung fountain. Discharge Plan Discharge Anticipated Discharge Date/Time: 06/30/23 13:16 Patient Disposition: Home, Self-Care Discharge Diagnosis: Acute on chronic hypoxic hypercapnic respiratory failure due to asthma exacerbation Referrals: Kishor Barrett, [employer] [Primary Care Provider] - 1 Week Discharge Medications: New prednisone 10 mg tablet 10 mg PO DIRECTED Qty: 30 0RF Rx Instructions: see taper instructions Prednisone p.o. 40 mg daily x5 days followed by prednisone p.o. 20 mg daily x5 days Continued (DME) nebulizers Misc See Rx Instructions .Route Qty: 1 0RF Rx Instructions: Use every 4 hours as needed for SOB, wheezing Trelegy Ellipta 200-62.5-25 mcg blister with device 1 inh inhalation DAILY 30 Days Qty: 1 6RF Eliquis 5 mg tablet 5 mg PO BID Qty: 120 3RF hydroxyzine HCl 25 mg tablet 25 mg PO BID PRN (Reason: anxiety) 30 Days Qty: 60 0RF Rx Instructions: Future refills considered AFTER blood work completed albuterol sulfate [Ventolin HFA] 90 mcg/actuation HFA aerosol inhaler 2 puff PO Q4-6H PRN (Reason: for wheezing) Qty: 18 2RF albuterol sulfate 2.5 mg /3 mL (0.083 %) solution for nebulization 2.5 mg inhalation Q4-6H PRN (Reason: for wheezing) Qty: 75 3RF fluticasone propionate [Allergy Relief (fluticasone)] 50 mcg/actuation spray,suspension 2 spray intranasal DAILY PRN (Reason: Allergy Symptoms) Rx Instructions: administer into each nostril Future refills considered AFTER blood work completed methadone [Methadose] 10 mg/mL Concentrate 48 mg PO DAILY sennosides-docusate sodium [Senexon-S] 8.6-50 mg tablet 1 tab-cap PO BID PRN (Reason: Constipation) Discharge Orders: Discharge Order (Routine); Ordered 06/30/23 Ordered By: Bernice Wren Diet: Regular diet Activity on Discharge: As tolerated Stand Alone Forms: Patient Portal Discharge page Care Plan Goals: Follow-up with PCP within 1 week Health Concerns: Severe persistent asthma Opiate dependence History of PE Plan of Treatment: Prednisone p.o. 40 mg daily x5 days followed by prednisone p.o. 20 mg daily x5 days Assessment: As above
[2023-06-30 09:26] VITALS: PULSE 101; PULSE 106; PULSE 112; PULSE 116; PULSE 96; O2SAT 85; O2SAT 87; O2SAT 88; O2SAT 89; O2SAT 90
--- NOTE | 2023-06-30 10:59 | MHC.CM.PN ---
Addendum entered by India Dawn 06/30/23 11:15: Patient unable to arrange transport home. New oxygen weakness de-conditioning r/t hospitalization for hypoxic respiratory failure with new home oxygen. Patient unable to adjust independently. Original Note: Patient is discharged to home today. A Home O2 eval was performed this am. The patient qualifies for 3Lwith Ambulation. Respiratory has arranged for [facility] to provide the Home O@. Patient has a ride home.
== END 2023-06-30 11:35 | disposition home or self-care (01) | DRG 141 ==
LOC: HO.ED 06-23 01:36 → HO.EDOVER 06-23 05:38 → HO.S3 06-23 10:41 → HO.IMC 06-26 10:40 → HO.S3 06-30 05:21
PROVIDERS: Emergency Medicine; Internal Medicine; Admitting Provider Student in an Organized Health Care Education/Training Program; Emergency Provider Internal Medicine; PCP Nurse Practitioner Family; Visit Provider Student in an Organized Health Care Education/Training Program
DX: J45.51 Severe persistent asthma with (acute) exacerbation (principal); J96.21 Acute and chronic respiratory failure with hypoxia; G93.41 Metabolic encephalopathy; J96.22 Acute and chronic respiratory failure with hypercapnia; F11.20 Opioid dependence, uncomplicated; Z99.81 Dependence on supplemental oxygen; Z87.891 Personal history of nicotine dependence; Z79.01 Long term (current) use of anticoagulants; Z79.51 Long term (current) use of inhaled steroids; Z79.899 Other long term (current) drug therapy
CPT/HCPCS: 0241U; 36415; 71045; 80048; 80053; 82803; 82947; 83605; 85025; 85027; 87040; 93005; 94640; 99285; J0696; J1100; J1650; J2060; J2920; J2930; J3475

== ENCOUNTER → 2023-06-23 01:34 | Outpatient (BNV) | payer OTHER, SELFPAY | PROVIDERS: Admitting Provider Student in an Organized Health Care Education/Training Program; Emergency Provider Internal Medicine; Visit Provider Internal Medicine Cardiovascular Disease | DX: R00.0 Tachycardia, unspecified (principal); R06.02 Shortness of breath | CPT/HCPCS: 93010 ==

== ENCOUNTER → 2023-06-23 05:34 | Outpatient (BNV) | payer OTHER, SELFPAY | PROVIDERS: Admitting Provider Student in an Organized Health Care Education/Training Program; Emergency Provider Internal Medicine; Visit Provider Student in an Organized Health Care Education/Training Program | DX: J96.21 Acute and chronic respiratory failure with hypoxia (principal); J96.22 Acute and chronic respiratory failure with hypercapnia; J45.52 Severe persistent asthma with status asthmaticus | CPT/HCPCS: 99222; 99232; 99233; 99238; 99499 ==

== ENCOUNTER 2023-08-06 22:32 | Inpatient (IN) | payer OTHER, SELFPAY ==
--- NOTE | ~2023-08-06 | XR_ITS ---
EXAMINATION: XR CHEST CLINICAL INFORMATION: Cough. COMPARISON: Chest radiograph 06/26/2023. TECHNIQUE: Frontal view of the chest was obtained. FINDINGS: Again noted hyperinflated lungs with similar degree of interstitial prominence. No focal consolidation, pleural effusion or pneumothorax. Unchanged cardiomediastinal silhouette. No acute osseous findings. XR/XR chest 1V IMPRESSION: Stable compared to 06/26/2023 with findings suggesting chronic small airways disease with some degree of air trapping.
[2023-08-06 22:41] VITALS: BP 110/81; BP 90/57; PULSE 108; PULSE 18; RESP 24; TEMP 37.1; O2SAT 90; O2SAT 91; BMI 22.7
[2023-08-06 22:43] VITALS: BP 90/87; PULSE 103; RESP 17; TEMP 37.1; O2SAT 90
--- NOTE | 2023-08-06 22:47 | ECG_ITS ---
Test Reason : SOB Blood Pressure : / mmHG Vent. Rate : 102 BPM Atrial Rate : 102 BPM P-R Int : 146 ms QRS Dur : 084 ms QT Int : 344 ms P-R-T Axes : 086 244 074 degrees QTc Int : 448 ms Sinus tachycardia Right superior axis deviation Abnormal ECG When compared with ECG of 23-JUN-2023 01:37, Questionable change in QRS axis Referred By: Generic ED Physician Electronically Signed By:ANA JO
--- NOTE | 2023-08-06 23:03 | ED_ITS ---
HPI - Asthma General Chief Complaint: Dyspnea Stated Complaint: SOB X 2 DAYS Time Seen by Provider: 08/06/23 22:58 Source: patient, EMS and old records reviewed Mode of arrival: EMS Limitations: no limitations History of Present Illness HPI Narrative: 48 yo male with PMH of COPD/asthma on 4L NC at night, VTE on eliquis, substance abuse, chronic respiratory failure here with c/o having increased wheezing, difficulty breathing, lower O2 sats and increased sputum production over the past two days. He states his VNA noted his sats were lower than baseline. He denies fevers or sick contacts. Doing his home reatments without improvement. MD complaint: asthma attack , shortness of breath and wheezing Onset (ago): day(s) (2) Severity: similar to prior Context: recent URI Associated symptoms: productive cough Asthma History: adult onset Treatments Prior to Arrival: inhaled bronchodilator Related Data Home Medications ?Medication ?Instructions ?Recorded ?Confirmed sennosides 8.6 mg-docusate sodium 1 tab-cap PO BID PRN Constipation 08/29/22 06/23/23 50 mg tablet (Senexon-S) fluticasone propionate 50 2 spray intranasal DAILY PRN 04/18/23 06/23/23 mcg/actuation nasal Allergy Symptoms spray,suspension (Allergy Relief (fluticasone)) methadone 10 mg/mL oral 48 mg PO DAILY 04/18/23 06/23/23 concentrate (Methadose) Previous Rx's ?Medication ?Instructions ?Recorded nebulizers #1 ea 11/26/20 fluticasone fur. 200 mcg-umeclid 1 inh inhalation DAILY 30 days #1 10/04/22 62.5 mcg-vilant 25 mcg ea inhalat.powder (Trelegy Ellipta) apixaban 5 mg tablet (Eliquis) 5 mg PO BID #120 tabs 01/04/23 hydroxyzine HCl 25 mg tablet 25 mg PO BID PRN anxiety 30 days 01/04/23 #60 tabs Ventolin HFA 90 mcg/actuation 2 puff PO Q4-6H PRN for wheezing 05/29/23 aerosol inhaler (albuterol sulfate) #18 ea albuterol sulfate 2.5 mg/3 mL 2.5 mg (3 mL) inhalation Q4-6H PRN 06/18/23 (0.083 %) solution for nebulization for wheezing #75 mL prednisone 10 mg tablet 10 mg PO DIRECTED #30 tabs 06/30/23 Allergies Allergy/AdvReac Type Severity Reaction Status Date / Time walnut Allergy Unknown SWELLING Verified 08/06/23 22:49 buprenorphine [From Suboxone] Allergy swelling Verified 08/06/23 22:49 in his hands and rash naloxone [From Suboxone] Allergy swelling Verified 08/06/23 22:49 in his hands and rash NSAIDS/ASA Allergy Unknown unknown Uncoded 08/29/22 09:32 walnuts Allergy Unknown anaphylaxis Uncoded 08/29/22 09:32 Review of Systems 2 Review of Systems: Constitutional : No Fever, No Chills ENT/Mouth : No Hoarseness, No sore throat, No Rhinorrhea Eyes: No Redness, No Discharge, No Vision Changes Cardiovascular : No Chest Pain, positive SOB, positive Dyspnea on Exertion, No Edema Respiratory : positive Cough, pos Sputum, positive Wheezing, Gastrointestinal : No Nausea, No Vomiting, No Diarrhea, No abdominal Pain Genitourinary : No Dysuria, No Hematuria Musculoskeletal : No joint pain, No Myalgias Skin : No rash Neuro : No Weakness, No Numbness, No Headache Psych : No anxiety, depression Heme/Lymph: No Bruising, No Bleeding Endocrine : No Polyuria, No Polydipsia All other systems reviewed and are negative PMFSH Past Medical History Attestation statement: The following information was validated with the patient. Source: old records reviewed Medical History Heroin use Allergic asthma with status asthmaticus Acute on chronic respiratory failure with hypoxia and hypercapnia Moderate persistent asthma with exacerbation Opiate abuse, episodic Left against medical advice Lung problems from crack cocaine Chronic lung disease Asthma Pulmonary emboli Family History Family History Other Family history non-contributory Social History Social History Household Members: Significant Other Housing: House Do you presently have visiting nurse or other home services: No Unable to assess alcohol history related to: Unable to respond Alcohol intake: former Patient Tobacco Use Status: Former Tobacco user Tobacco use type: Cigarette Cigarettes Per Day: 1 Smoked in Last 30 Days: No e-Cigarette/Vaping Use: Never Used Second Hand Smoke Exposure: No Substance Use Type: Crack/Cocaine and Heroin Advance Directives: No Advance Directives Information Provided: No Do you have a plan to hurt others: No Plan service: No Current occupational status: unemployed Cognitive needs: No Hearing needs: No Vision needs: No Physical Exam 2 Vital Signs: Vital Signs: Last Vital Signs Temp 97.9 F 08/07/23 00:37 Pulse 103 H 08/07/23 00:37 Resp 16 08/07/23 00:37 BP 102/59 L 08/07/23 00:37 Pulse Ox 95 08/07/23 00:37 O2 Del Method Nasal Cannula 08/07/23 00:37 O2 Flow Rate 4 08/07/23 00:37 Oxygen Flow Rate 6 08/06/23 22:41 BMI result Body Mass Index 22.7 Appearance: Alert. Oriented X3. Mild acute distress. Eyes: Pupils equal, round and reactive to light. ENT: Pharynx normal. Neck: Normal inspection. Neck supple. CVS: tachycardic heart rate and rhythm. Pulses normal. Respiratory: mild respiratory distress - tachypnea and retractions. Breath sounds diffuse exp and insp wheezing Abdomen: Soft and nontender. Skin: Skin warm and dry. Normal skin color. Normal skin turgor. Extremities: No lower extremity edema. No calf ttp Neuro: Oriented X 3. No motor deficit. No sensory deficit. Medications Administered Discontinued Medications Generic Name Dose Route Start Last Admin Trade Name Freq PRN Reason Stop Dose Admin Albuterol Sulfate 7.5 mg/ 10 mg 08/06/23 23:10 08/06/23 23:13 Albuterol Sulfate 2.5 mg INHALE 08/06/23 23:11 10 mg ONCE ONE Administration Albuterol Sulfate 7.5 mg/ 0 mg 08/06/23 23:32 08/06/23 23:36 Albuterol/Ipratropium 3 ml INHALE 08/06/23 23:33 10 each ONCE ONE Administration Magnesium Sulfate 2 gm in 50 mls @ 150 mls/hr 08/06/23 22:59 08/06/23 23:30 Magnesium Sulfate/H2o IV 08/06/23 23:18 Infused ONCE ONE Infusion Sodium Chloride 2,217 mls @ 2,217 mls/hr 08/06/23 23:09 08/06/23 23:52 Ns 30 ml/kg infuse over 1 hr (2217 ml) 08/07/23 00:08 2,217 mls/hr IV Administration .Q1H STA Azithromycin 500 mg/ Sodium 250 mls @ 125 mls/hr 08/06/23 23:09 08/06/23 23:50 Chloride IV 08/07/23 01:08 125 mls/hr ONCE ONE Administration Methylprednisolone Sodium Succinate 125 mg 08/06/23 22:59 08/06/23 23:04 Methylprednisolone Sod Succ 125 Mg/2 Ml Vial IVPUSH 08/06/23 23:00 125 mg ONCE ONE Administration Medical Decision Making Medical Decision Making MDM Narrative: 48 yo male with PMH of COPD/asthma on 4L NC at night, VTE on eliquis, substance abuse, chronic respiratory failure here with c/o 2 days of cough, wheezing, sputum and increased work of breathing at this time will need nebs, IVF, VBG, order IV azithromycin - hx of same in past. Overall at baseline and denies known sick contacts or sniffing any inhalants to trigger episode. Differential Diagnosis Differential Diagnoses: The differential diagnosis associated with the presentation includes URI, COPD, pneumonia Admission/Observation Consideration of admission/observation: Escalation of care including admission/observation considered patient is improved but states he feels unwell and not stable enough to go home will discuss with hospitalist Consult Healthcare Provider Management of the patient was discussed with: Hospitalist (will admit) Lab Data [facility] Lab Attestation statement: I reviewed the patient's lab results. 08/06/23 22:58 08/06/23 22:58 Labs: Lab Results 08/06/23 08/06/23 08/06/23 Range/Units 22:58 23:30 23:32 WBC 8.9 (4.8-10.8) X10*3/uL RBC 4.22 L (4.60-5.80) X10*6/uL Hgb 13.5 L (14.0-18.0) g/dl Hct 39.9 L (42.0-52.0) % MCV 94.5 (80.0-98.0) fL MCH 32.0 (27.0-33.0) pg MCHC 33.8 (31.0-36.0) g/dl RDW 12.9 (11.0-16.0) % Plt Count 228 (160-400) X10*3/uL MPV 9.3 L (9.4-12.4) fL Immature Gran % (Auto) 0.2 (0.0-0.4) % Neut % (Auto) 57.1 (45-73) % Lymph % (Auto) 28.6 (20-40) % [place] % (Auto) 6.3 (2-11) % Eos % (Auto) 7.2 H (0-4) % Baso % (Auto) 0.6 (0-2) % Lymph # (Auto) 2.5 (1.2-4.9) X10*3/uL [place] # (Auto) 0.6 (0.1-1.2) X10*3/uL Eos # (Auto) 0.6 H (0.0-0.4) X10*3/uL Baso # (Auto) 0.1 (0.0-0.2) X10*3/uL Abs Immat Gran (auto) 0.02 (0.00-0.03) X10*3/uL Absolute Neuts (auto) 5.1 (2.0-8.3) x10*3/uL Absolute Nucleated RBC 0.000 (0.0-0.012) X10*3/uL Nucleated RBC % (auto) 0.0 (0.0-0.2) /100WBC VBG pH 7.32 (7.32-7.43) VBG pCO2 62 mmHg VBG pO2 33 mmHg VBG HCO3 32 H (22-26) mmol/L VBG O2 Saturation 46.0 % VBG Base Excess 4.8 mmol/L Sodium 140 (135-145) mmol/L Potassium 4.1 (3.3-5.1) mmol/L Chloride 103 (96-108) mmol/L Carbon Dioxide 27 (22-29) mmol/L Anion Gap 14 (12-20) BUN 20 H (9-16) mg/dL Creatinine 1.15 (0.5-1.4) mg/dL Estim Creat Clear Calc 83.8 Estimated GFR > 60 Random Glucose 133 H (60-115) mg/dL Lactic Acid 1.3 (0.5-2.0) mmol/L Calcium 9.6 (8.4-10.2) mg/dL Total Bilirubin 0.5 (0.0-1.0) mg/dL AST 15 (5-37) U/L ALT 18 (0-40) U/L Alkaline Phosphatase 51 (39-117) U/L Troponin I High Sens < 2.7 (<3.5-35.0) ng/L Total Protein 6.8 (6.5-8.0) g/dL Albumin 4.1 (3.5-5.0) g/dL Influenza Type A (PCR) NEGATIVE (Negative) Influenza Type B (PCR) NEGATIVE (Negative) RSV RNA Qual (PCR) NEGATIVE (Negative) SARS-CoV-2 RNA (RT-PCR) NEGATIVE (Negative) ABG Data Attestation ABG: I personally reviewed and interpreted this ABG as follows: Interpretation: no retention Independent Interpretation I performed an independent interpretation of an: EKG and Plain X-Ray (no pneumonia) Interpretation: Rate: 102 Rhythm: sinus tachycardia [place]: left Normal P waves. Normal MAGALY. Normal QRS complex. ST T wave : no HILARIA, normal qTC: 448 prior studies: no acute ischemia The study has been interpreted contemporaneously by me. . Radiology Impression Discussion of test interpretation with radiology: I have reviewed the radiologist's reading. Independent Historian Clinical information obtained from an independent historian. History obtained from or confirmed by: EMS External Record Review External record reviewed: Inpatient record and Office record Critical Care Time Critical Care Time Critical Care Time: Yes Total Critical Care Time: 35 Attestation: bronch protocol, IV magnesium, IVF x 2L, repeat assessments, intervention of hypoxia I attest to this time spent taking care of the patient Discharge Plan Discharge Clinical Impression: Acute exacerbation of chronic obstructive airways disease Patient Disposition: Admitted As Inpatient Prescriptions: No Action (DME) nebulizers Misc See Rx Instructions .Route Qty: 1 0RF Rx Instructions: Use every 4 hours as needed for SOB, wheezing Trelegy Ellipta 200-62.5-25 mcg blister with device 1 inh inhalation DAILY 30 Days Qty: 1 6RF Eliquis 5 mg tablet 5 mg PO BID Qty: 120 3RF hydroxyzine HCl 25 mg tablet 25 mg PO BID PRN (Reason: anxiety) 30 Days Qty: 60 0RF Rx Instructions: Future refills considered AFTER blood work completed albuterol sulfate [Ventolin HFA] 90 mcg/actuation HFA aerosol inhaler 2 puff PO Q4-6H PRN (Reason: for wheezing) Qty: 18 2RF albuterol sulfate 2.5 mg /3 mL (0.083 %) solution for nebulization 2.5 mg inhalation Q4-6H PRN (Reason: for wheezing) Qty: 75 3RF fluticasone propionate [Allergy Relief (fluticasone)] 50 mcg/actuation spray,suspension 2 spray intranasal DAILY PRN (Reason: Allergy Symptoms) Rx Instructions: administer into each nostril Future refills considered AFTER blood work completed methadone [Methadose] 10 mg/mL Concentrate 48 mg PO DAILY prednisone 10 mg tablet 10 mg PO DIRECTED Qty: 30 0RF Rx Instructions: see taper instructions Prednisone p.o. 40 mg daily x5 days followed by prednisone p.o. 20 mg daily x5 days sennosides-docusate sodium [Senexon-S] 8.6-50 mg tablet 1 tab-cap PO BID PRN (Reason: Constipation) Print Language: Jamaican
[2023-08-06] MEDS: methylPREDNISolone Sod Succ 125 MG/2 ML VIAL IVPUSH (23:04)
[2023-08-06] MEDS: Magnesium Sulfate/H2O 2 GM/50 ML PIGGYBACK IV (23:04)
[2023-08-06 23:05] LABS: MANUAL DIFF FLAG NO
[2023-08-06 23:08] LABS: Basophils Absolute Auto 0.1 X10*3/uL (0.0-0.2); Basophils Percent Auto 0.6 % (0-2); Eosinophils Absolute Auto 0.6 X10*3/uL (0.0-0.4); Eosinophils Percent Auto 7.2 % (0-4); Hematocrit 39.9 % (42.0-52.0); Hemoglobin 13.5 g/dl (14.0-18.0); Imm Gran Abs Auto 0.02 X10*3/uL (0.00-0.03); Imm Gran Pct Auto 0.2 % (0.0-0.4); Lymphocytes Absolute Auto 2.5 X10*3/uL (1.2-4.9); Lymphocytes Percent Auto 28.6 % (20-40); Mean Corpuscular HGB Conc 33.8 g/dl (31.0-36.0); Mean Corpuscular Volume 94.5 fL (80.0-98.0); Mean Platelet Volume 9.3 fL (9.4-12.4); Monocytes Absolute Auto 0.6 X10*3/uL (0.1-1.2); Monocytes Percent Auto 6.3 % (2-11); Neutrophils Absolute Auto 5.1 x10*3/uL (2.0-8.3); Neutrophils Percent Auto 57.1 % (45-73); Platelet Count 228 X10*3/uL (160-400); Red Blood Count 4.22 X10*6/uL (4.60-5.80); Red Cell Distribution Width 12.9 % (11.0-16.0); White Blood Count 8.9 X10*3/uL (4.8-10.8)
[2023-08-06] MEDS: Albuterol Sulfate 7.5 MG, Albuterol Sulfate (0.083%) 2.5 MG 10 MG INHALE (23:13)
[2023-08-06 23:20] LABS: Alanine Aminotransferase 18 U/L (0-40); Albumin Level 4.1 g/dL (3.5-5.0); Alkaline Phosphatase 51 U/L (39-117); Anion Gap 14 (12-20); Aspartate Amino Transferase 15 U/L (5-37); Bilirubin Total 0.5 mg/dL (0.0-1.0); Blood Urea Nitrogen 20 mg/dL (9-16); Calcium 9.6 mg/dL (8.4-10.2); Carbon Dioxide 27 mmol/L (22-29); Chloride 103 mmol/L (96-108); Creatinine Clr Calc Pharmacy 83.8; Estimated Glomerular Filt Rate > 60; Glucose Random 133 mg/dL (60-115); Potassium 4.1 mmol/L (3.3-5.1); Sodium 140 mmol/L (135-145); Total Protein 6.8 g/dL (6.5-8.0)
[2023-08-06 23:29] VITALS: RESP 18; O2SAT 92
[2023-08-06 23:29] LABS: Troponin-I High Sensitivity < 2.7 ng/L (<3.5-35.0)
[2023-08-06] MEDS: Albuterol Sulfate 7.5 MG, Albuterol/Iprat 2.5/0.5MG 3 ML 3 ML INHALE (23:36)
[2023-08-06 23:43] LABS: VBG Base Excess 4.8 mmol/L; VBG HCO3 32 mmol/L (22-26); VBG pCO2 62 mmHg; VBG pH 7.32 (7.32-7.43); VBG pO2 33 mmHg
[2023-08-06] MEDS: Azithromycin 500 MG in 0.9 % Sodium Chloride 250 ML 125 MG IV (23:50)
[2023-08-06 23:52] LABS: Venous Blood Gas Refer to POC result
[2023-08-06 23:54] LABS: Lactic Acid 1.3 mmol/L (0.5-2.0)
[2023-08-07] VITALS (16 sets, daily range): BP systolic 78–116; BP diastolic 34–72; PULSE 71–103; RESP 14–22; TEMP 36.3–36.6; O2SAT 92–98
[2023-08-07 00:11] LABS: Influenza A PCR NEGATIVE (Negative); Influenza B PCR NEGATIVE (Negative); Resp Syncy Virus RNA Qual PCR NEGATIVE (Negative); SARS COV2 PCR INHOUSE NEGATIVE (Negative)
--- NOTE | 2023-08-07 01:23 | P.HPHOSP_ITS ---
History of Present Illness Date of Service: 08/07/23 Chief Complaint: Dyspnea This is a 48-year-old male with pertinent history of chronic hypoxemic respiratory failure due to COPD-asthma overlap syndrome on oxygen as needed, opioid use disorder on methadone, history of PE on Eliquis who presents to the emergency department for evaluation of dyspnea and wheezing. Patient states his symptoms started 3 days prior to presentation. He has been having dyspnea which is worse with exertion. Also has been having productive cough with wheezing. No relief with home inhaler. No fever, chills, nausea, vomiting, chest discomfort, palpitations, abdominal pain, changes in urinary or bowel habits. In the emergency department, patient requiring 4 L supplemental oxygen. Was given multiple DuoNeb treatments and IV Solu-Medrol Review of Systems 2 Cardiovascular: Cardiovascular: Reports dyspnea on exertion Respiratory: Respiratory: Reports cough, Reports dyspnea on exertion and Reports wheezing Allergic/Immunologic: Allergic/Immunologic: Reports wheezing [facility] Medical History Heroin use Allergic asthma with status asthmaticus Acute on chronic respiratory failure with hypoxia and hypercapnia Moderate persistent asthma with exacerbation Opiate abuse, episodic Left against medical advice Lung problems from crack cocaine Chronic lung disease Asthma Pulmonary emboli Family History Other Family history non-contributory Social History Household Members: Significant Other Housing: House Do you presently have visiting nurse or other home services: No Unable to assess alcohol history related to: Unable to respond Alcohol intake: former Patient Tobacco Use Status: Former Tobacco user Tobacco use type: Cigarette Cigarettes Per Day: 1 Smoked in Last 30 Days: No e-Cigarette/Vaping Use: Never Used Second Hand Smoke Exposure: No Substance Use Type: Crack/Cocaine and Heroin Advance Directives: No Advance Directives Information Provided: No Do you have a plan to hurt others: No Plan service: No Current occupational status: unemployed Cognitive needs: No Hearing needs: No Vision needs: No Meds Allergies Allergy/AdvReac Type Severity Reaction Status Date / Time walnut Allergy Unknown SWELLING Verified 08/06/23 22:49 buprenorphine [From Suboxone] Allergy swelling Verified 08/06/23 22:49 in his hands and rash naloxone [From Suboxone] Allergy swelling Verified 08/06/23 22:49 in his hands and rash NSAIDS/ASA Allergy Unknown unknown Uncoded 08/29/22 09:32 walnuts Allergy Unknown anaphylaxis Uncoded 08/29/22 09:32 Home Medications ?Medication ?Instructions ?Recorded ?Confirmed ?Last Taken ?Type sennosides 8.6 mg-docusate sodium 1 tab-cap PO BID PRN Constipation 08/29/22 06/23/23 Unknown History 50 mg tablet (Senexon-S) fluticasone propionate 50 2 spray intranasal DAILY PRN 04/18/23 06/23/23 Unknown History mcg/actuation nasal Allergy Symptoms spray,suspension (Allergy Relief (fluticasone)) methadone 10 mg/mL oral 48 mg PO DAILY 04/18/23 06/23/23 06/22/23 08:30 History concentrate (Methadose) Physical Exam 2 Vital Signs and Narrative: Vital Signs: Last Vital Signs Temp 97.9 F 08/07/23 00:37 Pulse 103 H 08/07/23 00:37 Resp 16 08/07/23 00:37 BP 102/59 L 08/07/23 00:37 Pulse Ox 95 08/07/23 00:37 O2 Del Method Nasal Cannula 08/07/23 00:37 O2 Flow Rate 4 08/07/23 00:37 Oxygen Flow Rate 6 08/06/23 22:41 BMI result Body Mass Index 22.7 Middle-aged male lying in bed in mild distress on supplemental oxygen Neck supple, no JVD Tachycardia with regular rhythm, S1-S2 heard Bilateral wheezing without crackles Abdomen soft nontender, no guarding, no rigidity Patient is awake, alert and oriented to self, place, time and person ; no focal motor deficit Psych: Normal mood No pedal edema Results Labs 08/06/23 22:58 08/06/23 22:58 Labs: Laboratory Results - last 24 hr 08/06/23 08/06/23 08/06/23 22:58 23:30 23:32 MCV 94.5 MCH 32.0 MCHC 33.8 RDW 12.9 Plt Count 228 MPV 9.3 L Immature Gran % (Auto) 0.2 Neut % (Auto) 57.1 Lymph % (Auto) 28.6 Lincoln % (Auto) 6.3 Eos % (Auto) 7.2 H Baso % (Auto) 0.6 Lymph # (Auto) 2.5 Lincoln # (Auto) 0.6 Eos # (Auto) 0.6 H Baso # (Auto) 0.1 Abs Immat Gran (auto) 0.02 Absolute Neuts (auto) 5.1 Absolute Nucleated RBC 0.000 Nucleated RBC % (auto) 0.0 VBG pH 7.32 VBG pCO2 62 VBG pO2 33 VBG HCO3 32 H VBG O2 Saturation 46.0 VBG Base Excess 4.8 Anion Gap 14 Estim Creat Clear Calc 83.8 Estimated GFR > 60 Random Glucose 133 H Lactic Acid 1.3 Calcium 9.6 Total Bilirubin 0.5 AST 15 ALT 18 Alkaline Phosphatase 51 Troponin I High Sens < 2.7 Total Protein 6.8 Albumin 4.1 Influenza Type A (PCR) NEGATIVE Influenza Type B (PCR) NEGATIVE RSV RNA Qual (PCR) NEGATIVE SARS-CoV-2 RNA (RT-PCR) NEGATIVE Imaging Radiologist's Impressions: Impressions Chest X-Ray 08/06/23 23:55 IMPRESSION: Stable compared to 06/26/2023 with findings suggesting chronic small airways disease with some degree of air trapping. Assessment and Plan (1) Acute exacerbation of chronic obstructive airways disease: Status: Acute Plan This is a 48-year-old male with pertinent history of chronic hypoxemic respiratory failure due to COPD-asthma overlap syndrome on oxygen as needed, opioid use disorder on methadone, history of PE on Eliquis who presents to the emergency department for evaluation of dyspnea and wheezing. #. Acute on chronic hypoxemic hypercapnic respiratory failure due to acute exacerbation of obstructive lung disease: Admit patient on supplemental oxygen. Continue IV steroids. Scheduled and p.r.n. DuoNebs. Continue home inhaler. Empiric IV azithromycin for pleiotropic effect #. Opioid use disorder on methadone. #. History of PE on Eliquis Med rec pending DVT prophylaxis: Eliquis Full code Admit as inpatient and will require two night minimum hospital stay for supplemental oxygen, monitoring of respiratory status (as above), which is not possible in a lesser acute setting. Quality Stroke Does the patient have a stroke diagnosis?: No VTE Prior VTE?: No VTE Risk Level:: Medical - moderate - high VTE Device Contraindication: Treatment Not Indicated VTE Drug Contraindication: N/A - Med Ordered
--- NOTE | 2023-08-07 01:44 | PC.NURSE ---
Patient is alert and oriented x3, VSS, saturating 93-96% on O2 at 4 LPM NC. Patient reports chest tightness resolved. Patient denies any pain. Patient requested francisco steffanie and ice cream, provided and tolerated well. Nurse to nurse report given to ALFONSO Maldonado, patient taken to ED overflow.
[2023-08-07 04:55] LABS: Basophils Percent Auto 0.3 % (0-2); Eosinophils Percent Auto 0.3 % (0-4); Hematocrit 34.5 % (42.0-52.0); Hemoglobin 11.5 g/dl (14.0-18.0); Imm Gran Abs Auto 0.02 X10*3/uL (0.00-0.03); Imm Gran Pct Auto 0.3 % (0.0-0.4); Lymphocytes Absolute Auto 0.5 X10*3/uL (1.2-4.9); Lymphocytes Percent Auto 7.8 % (20-40); MANUAL DIFF FLAG SCAN; Mean Corpuscular HGB Conc 33.3 g/dl (31.0-36.0); Mean Corpuscular Volume 96.1 fL (80.0-98.0); Mean Platelet Volume 9.4 fL (9.4-12.4); Monocytes Percent Auto 0.6 % (2-11); Neutrophils Absolute Auto 5.9 x10*3/uL (2.0-8.3); Neutrophils Percent Auto 90.7 % (45-73); Platelet Count 203 X10*3/uL (160-400); Red Blood Count 3.59 X10*6/uL (4.60-5.80); Red Cell Distribution Width 12.9 % (11.0-16.0); SCAN SMEAR FLAG 1; White Blood Count 6.5 X10*3/uL (4.8-10.8)
[2023-08-07 04:59] LABS: SLIDE REVIEW VERIFIED
[2023-08-07 05:12] LABS: Anion Gap 15 (12-20); Blood Urea Nitrogen 19 mg/dL (9-16); Calcium 8.4 mg/dL (8.4-10.2); Carbon Dioxide 22 mmol/L (22-29); Chloride 108 mmol/L (96-108); Creatinine Clr Calc Pharmacy 102.6; Estimated Glomerular Filt Rate > 60; Glucose Random 163 mg/dL (60-115); Potassium 3.9 mmol/L (3.3-5.1); Sodium 141 mmol/L (135-145)
[2023-08-07] MEDS: Lactated Ringers 1,000 ML 999 ML IV (05:35)
--- NOTE | 2023-08-07 05:35 | PC.NURSE ---
Addendum entered by Joel Bailey 08/07/23 06:26: lung sounds wheezing bilat. pt has a nonproductive persistent cough. sats remain 96% on 4L NC. respiratory notified for breathing tx. pt speaking full clear sentences denies cp/feeling sob. Original Note: pt afebrile denies pain. vitals as documented. dr. horvath notified of bp. lr ordered. infusing per jun. pt denies cp/sob/dizziness. sats 95% on 4L NC per order by dr. horvath. nad. call flores within reach.
[2023-08-07] MEDS: Albuterol/Iprat 2.5/0.5MG 3 ML AMPUL.NEB INHALE ×5 (06:15→17:39)
--- NOTE | 2023-08-07 06:52 | PC.NURSE ---
able to titrate o2 down to 2L NC; sats remain 95-96% on 2L. pt remains 87-89% on RA.
--- NOTE | 2023-08-07 08:09 | MHC.EDTECH ---
Urinal emptied at 500cc yellow urine
[2023-08-07] MEDS: methylPREDNISolone Sod Succ 40 MG/ML VIAL IVPUSH ×2 (09:02→20:41)
--- NOTE | 2023-08-07 09:04 | PC.NURSE ---
Assumed care of patient at 0700, patient A&O x4, respirations even and unlabored, on 2L nc, reports no pain, report given to med surg nurse via admission worksheet, respiratory currently at bedside.
[2023-08-07] MEDS: 0.9 % Sodium Chloride Flush 3 ML SYRINGE IVFLUSH ×3 (09:08→20:50)
--- NOTE | 2023-08-07 09:12 | HE.PHANOTE ---
Methadone verification Verified dose with [facility] at [facility]. Patient last received dose at clinic on 08/03/23 of 48 mg but patient also received 7 day take home supply in which his visiting nurse gives daily.
--- NOTE | 2023-08-07 09:14 | PHA.MEDREC ---
Addendum entered by Randa Basilio [facility] 08/07/23 09:17: Patient states he has not taken Hydroxyzine a while because his provider will not refill until his next appt. Patient has not yet started chantix. Original Note: Pharmacy Consult ? Medication Reconciliation Pharmacy has completed the medication reconciliation. Spoke with patient in the Overflow unit. Patient knew all medications
--- NOTE | 2023-08-07 10:49 | MHC.CM.PN ---
pt lives w/girlfriend had no previous serviues may need assist with transport home
[2023-08-07] MEDS: guaiFENesin 200 MG/10 ML 10 ML LIQUID PO ×4 (11:01→20:41)
[2023-08-07] MEDS: methADONE HCl 20 MG/2 ML ORAL.CONC 48 MG PO (11:02)
[2023-08-07] MEDS: Apixaban 5 MG TABLET PO ×2 (11:02→20:41)
--- NOTE | 2023-08-07 16:10 | PM.EVENT ---
Event Note Date of Service: 08/07/23 Event Note: This patient is seen and examined by hospitalist team this morning,seen and examined again. patient came for dyspnea and wheezing sob minimal improving Physical exam : simialr to h&p note. assessment and plan coordinated h&P note, Agree with the plan in addition: continue nebs,steriods ,antibiotics Time Spent With Patient Time: Total time managing care of this patient today ____ minutes.
[2023-08-07] MEDS: Melatonin 3 MG TABLET 6 MG PO (20:41)
[2023-08-07] MEDS: Montelukast Sodium 10 MG TABLET PO (20:41)
[2023-08-07] MEDS: Azithromycin 500 MG in 0.9 % Sodium Chloride 250 ML 125 MG IV (20:45)
[2023-08-08 03:43] VITALS: BP 110/70; PULSE 69; RESP 18; TEMP 36.7; O2SAT 96
[2023-08-08] MEDS: guaiFENesin 200 MG/10 ML 10 ML LIQUID PO ×2 (05:37→08:43)
[2023-08-08 08:00] VITALS: BP 100/53; PULSE 80; RESP 18; TEMP 36.6; O2SAT 96
[2023-08-08] MEDS: Albuterol/Iprat 2.5/0.5MG 3 ML AMPUL.NEB INHALE ×2 (08:33→11:35)
[2023-08-08 08:35] VITALS: PULSE 85; RESP 18
[2023-08-08] MEDS: 0.9 % Sodium Chloride Flush 3 ML SYRINGE IVFLUSH (08:41)
[2023-08-08] MEDS: methylPREDNISolone Sod Succ 40 MG/ML VIAL IVPUSH (08:42)
[2023-08-08] MEDS: methADONE HCl 20 MG/2 ML ORAL.CONC 48 MG PO (08:43)
[2023-08-08] MEDS: Apixaban 5 MG TABLET PO (08:44)
[2023-08-08 11:36] VITALS: PULSE 106; RESP 18; O2SAT 93
--- NOTE | 2023-08-08 11:49 | P.DS_ITS ---
DS: Providers Provider Date of Service: 08/08/23 Date of admission: 08/07/23 01:22 Date of discharge: 08/08/23 Primary care physician: TONI Dunn Attending physician on discharge: Rene Anderson Discharging clinician: Rene Anderson DS: Diagnosis Discharge Diagnosis (1) Acute exacerbation of chronic obstructive airways disease: Status: Acute DS: Summary Hospital Course Hospital Course: 48-year-old male with pertinent history of chronic hypoxemic respiratory failure due to COPD-asthma overlap syndrome on oxygen as needed, opioid use disorder on methadone, history of PE on Eliquis who presents to the emergency department for evaluation of dyspnea and wheezing. Patient states his symptoms started 3 days prior to presentation. He has been having dyspnea which is worse with exertion. Also has been having productive cough with wheezing. No relief with home inhaler. No fever, chills, nausea, vomiting, chest discomfort, palpitations, abdominal pain, changes in urinary or bowel habits. In the emergency department, patient requiring 4 L supplemental oxygen. Was given multiple DuoNeb treatments and IV Solu-Medrol. Hospital course: Patient was admitted for COPD exacerbation started on nebs, steroids, antibiotics-seems to be improved significantly going home with p.o. steroidrednisone 40 mg daily for 4 days and azithromycin 250 mg for 3 days. Follow-up with PCP outpatient. plan: Complete prednisone 40 mg daily for 4 days and azithromycin 250 mg for 3 days. Above management discussed with the patient in detail length he understand and in agreement with the above plan, time spent 40 minutes and 50% time spent on counseling. Time Attestation Total time managing care of this patient today: 40 mintues. Discharge Coordination Time (in mins): 40 min Quality: Safe Use of Opioids Does Pt have an Active Cancer Diagnosis on the Problem List?: No Quality: Stroke Does the patient have a stroke diagnosis?: No Physical Exam Vital Signs: Vital Signs: Last Vital Signs Temp 97.8 F 08/08/23 08:00 Pulse 106 H 08/08/23 11:36 Resp 18 08/08/23 11:36 BP 100/53 L 08/08/23 08:00 Pulse Ox 96 08/08/23 08:00 O2 Del Method Room Air 08/08/23 08:00 O2 Flow Rate 2 08/08/23 03:43 Oxygen Flow Rate 6 08/06/23 22:41 BMI result Body Mass Index 22.7 Appearance: Alert.? Oriented X3.? not in distress.? Eyes: Pupils equal, round and reactive to light.? Sclera nonicteric.? ENT: Pharynx normal.? Moist mucous membranes. cvs: rrr, [id number]. res: clear to auscultation ,no rhonchii or wheezing abd: no rebound or guarding ,nt, bs present. ext pulses present , no cyanosis ,. neuro: axo3 , nonfocal. DS: Data Data Completed and Pending Completed studies during hospitalization [Text1]: Procedures Assistance with Respiratory Ventilation, Less than 24 Consecutive Hours, Continuous Positive Airway Pressure (06/23/23) Labs on day of discharge: Preliminary micro results at discharge 08/06/23 23:30 Blood Culture - Preliminary Blood - Venous No growth after 24 hours. 08/06/23 23:33 Blood Culture - Preliminary Blood - Venous No growth after 24 hours. Imaging Chest x-ray: Radiologist's impression: ITS Impressions Chest X-Ray 08/06/23 23:55 IMPRESSION: Stable compared to 06/26/2023 with findings suggesting chronic small airways disease with some degree of air trapping. Discharge Plan Discharge Anticipated Discharge Date/Time: 08/08/23 11:37 Patient Disposition: Home, Self-Care Discharge Diagnosis: acute exacerbation of copd. Referrals: Kishor Barrett, REGISTERED CLINICAL DIETITIAN- [Primary Care Provider] - 1 Week Discharge Medications: New azithromycin 250 mg tablet 250 mg PO DAILY 3 Days Qty: 3 0RF Rx Instructions: start on day 2 of therapy prednisone 20 mg tablet 40 mg PO DAILY Qty: 8 0RF Continued (DME) nebulizers [facility] See Rx Instructions .Route Qty: 1 0RF Rx Instructions: Use every 4 hours as needed for SOB, wheezing Trelegy Ellipta 200-62.5-25 mcg blister with device 1 inh inhalation DAILY 30 Days Qty: 1 6RF Eliquis 5 mg tablet 5 mg PO BID Qty: 120 3RF albuterol sulfate 2.5 mg /3 mL (0.083 %) solution for nebulization 2.5 mg inhalation Q4-6H PRN (Reason: for wheezing) Qty: 75 3RF fluticasone propionate [Allergy Relief (fluticasone)] 50 mcg/actuation spray,suspension 2 spray intranasal DAILY PRN (Reason: Allergy Symptoms) Rx Instructions: administer into each nostril Future refills considered AFTER blood work completed methadone [Methadose] 10 mg/mL Concentrate 48 mg PO DAILY Rx Instructions: verified dose with [facility] montelukast 10 mg tablet 10 mg PO BEDTIME albuterol sulfate [Ventolin HFA] 90 mcg/actuation HFA aerosol inhaler 2 puff PO Q4-6H PRN (Reason: Shortness Of Breath Or Wheezing) sennosides-docusate sodium [Senexon-S] 8.6-50 mg tablet 1 tab-cap PO BID PRN (Reason: Constipation) Discharge Orders: Discharge Order (Routine); Ordered 08/08/23 Ordered By: Rene Anderson Diet: Advance to usual diet Activity on Discharge: As tolerated Stand Alone Forms: Patient Portal Discharge page Print Language: Swedish Care Plan Goals: Patient was admitted for COPD exacerbation started on nebs, steroids, antibiotics-seems to be improved significantly going home with p.o. steroids prednisone 40 mg daily for 4 days and azithromycin 250 mg for 3 days. Follow-up with PCP outpatient. Health Concerns: As above. Plan of Treatment: As above. Assessment: As above.
--- NOTE | 2023-08-08 11:49 | MHC.CM.PN ---
pt dcd home self care
--- NOTE | 2023-08-08 12:33 | PC.NURSE ---
Pt. ambulated in hallways RA sat 93%, no SOB expressed by pt. or noted.
== END 2023-08-08 12:34 | disposition home or self-care (01) | DRG 140 ==
LOC: HO.ED 08-07 01:11 → HO.EDOVER 08-07 01:26 → HO.S3 08-07 07:46
PROVIDERS: Admitting Provider Student in an Organized Health Care Education/Training Program; Emergency Provider Emergency Medicine; PCP Nurse Practitioner Family; Visit Provider Internal Medicine
DX: J44.1 Chronic obstructive pulmonary disease with (acute) exacerbation (principal); J96.21 Acute and chronic respiratory failure with hypoxia; Z99.81 Dependence on supplemental oxygen; F11.20 Opioid dependence, uncomplicated; J45.40 Moderate persistent asthma, uncomplicated; Z20.822 Contact with and (suspected) exposure to COVID-19; Z86.711 Personal history of pulmonary embolism; Z87.891 Personal history of nicotine dependence; Z79.01 Long term (current) use of anticoagulants; Z79.51 Long term (current) use of inhaled steroids; Z79.899 Other long term (current) drug therapy
CPT/HCPCS: 0241U; 36415; 71045; 80048; 80053; 82803; 83605; 84484; 85025; 87040; 93005; 94640; 99218; 99221; 99285; J0456; J2919; J3475; J7120

== ENCOUNTER → 2023-08-06 22:47 | Outpatient (BNV) | payer OTHER, SELFPAY | PROVIDERS: Admitting Provider Student in an Organized Health Care Education/Training Program; Emergency Provider Emergency Medicine; PCP Nurse Practitioner Family; Visit Provider Internal Medicine | DX: R00.0 Tachycardia, unspecified (principal); R94.31 Abnormal electrocardiogram [ECG] [EKG] | CPT/HCPCS: 93010 ==

== ENCOUNTER → 2023-08-07 01:22 | Outpatient (BNV) | payer OTHER, SELFPAY | PROVIDERS: Admitting Provider Student in an Organized Health Care Education/Training Program; Emergency Provider Emergency Medicine; PCP Nurse Practitioner Family; Visit Provider Student in an Organized Health Care Education/Training Program | DX: J44.1 Chronic obstructive pulmonary disease with (acute) exacerbation (principal); J96.22 Acute and chronic respiratory failure with hypercapnia | CPT/HCPCS: 99222; 99239; 99499 ==

== ENCOUNTER 2023-09-14 07:38 | Inpatient (IN) | payer OTHER, SELFPAY ==
[2023-09-14] VITALS (19 sets, daily range): BP systolic 98–144; BP diastolic 58–114; PULSE 79–102; RESP 17–30; TEMP 36.4–36.7; O2SAT 80–100; BMI 18.0
--- NOTE | ~2023-09-14 | XR_ITS ---
EXAMINATION: XR CHEST CLINICAL INFORMATION: Shortness of breath COMPARISON: Prior chest July 2023 TECHNIQUE: Frontal view of the chest was obtained. FINDINGS: No significant abnormality is noted involving the heart, lungs, mediastinum, bony thorax or soft tissues. XR/XR chest 1V IMPRESSION: Unremarkable examination.
[2023-09-14] MEDS: Magnesium Sulfate/H2O 2 GM/50 ML PIGGYBACK IV (07:40)
--- NOTE | 2023-09-14 07:41 | ECG_ITS ---
Test Reason : SOB Blood Pressure : / mmHG Vent. Rate : 096 BPM Atrial Rate : 096 BPM P-R Int : 126 ms QRS Dur : 074 ms QT Int : 354 ms P-R-T Axes : 084 104 083 degrees QTc Int : 447 ms Normal sinus rhythm Rightward axis Possible Anterior infarct , age undetermined Abnormal ECG When compared with ECG of 06-AUG-2023 22:46, Questionable change in QRS axis Nonspecific T wave abnormality now evident in Lateral leads Referred By: Lacey Crowley Electronically Signed By:GENEVIEVE VANCE MD
[2023-09-14] MEDS: Albuterol Sulfate 7.5 MG, Albuterol/Iprat 2.5/0.5MG 3 ML 3 ML INHALE (07:48)
[2023-09-14] MEDS: fentaNYL citrate/PF 100 MCG/2 ML VIAL 25 MCG IVPUSH (07:51)
--- NOTE | 2023-09-14 07:51 | ED_ITS ---
HPI - Asthma General Chief Complaint: Asthma Stated Complaint: DIFF BREATHING Time Seen by Provider: 09/14/23 07:40 Source: patient and EMS Mode of arrival: EMS Limitations: no limitations History of Present Illness ED Provider: Lionel MEAD HPI Narrative: This is a 48-year-old male history of asthma with hypoxic respiratory failure, chronic lung disease, opiate abuse, crack cocaine abuse, pulmonary emboli on Eliquis presenting to the emergency department with complaints of severe shortness of breath that started at 06:00 suddenly this morning. He reports he has home O2 2 L as needed however he has not been wearing it. He also reports he has not been taking his maintenance inhalers fluticasone and or montelukast. He is adamant however that he takes his Eliquis as prescribed He reports shortness of breath started suddenly and he just feels terrible. He received 125 mg of Solu-Medrol with EMS as well as a breathing treatment. When he arrives he has an evident distress speaking in short sentences which limits my history taking. He denies recent illness and states that yesterday he was perfectly fine. Denies chest pain, fevers, chills, nausea, vomiting, cough, vision changes, dizziness, headache, recent sick contacts Related Data Home Medications ?Medication ?Instructions ?Recorded ?Confirmed sennosides 8.6 mg-docusate sodium 1 tab-cap PO BID PRN Constipation 08/29/22 08/07/23 50 mg tablet (Senexon-S) methadone 10 mg/mL oral 48 mg PO DAILY 04/18/23 08/07/23 concentrate (Methadose) Previous Rx's ?Medication ?Instructions ?Recorded nebulizers #1 ea 11/26/20 Ventolin HFA 90 mcg/actuation 2 puff PO Q4-6H PRN for wheezing 08/08/23 aerosol inhaler (albuterol sulfate) #18 ea apixaban 5 mg tablet (Eliquis) 5 mg PO BID #120 tabs 08/08/23 azithromycin 250 mg tablet 250 mg PO DAILY 3 days #3 tabs 08/08/23 prednisone 20 mg tablet 40 mg (2 x 20 mg) PO DAILY #8 tabs 08/08/23 fluticasone fur. 200 mcg-umeclid 1 inh inhalation DAILY 30 days #1 08/11/23 62.5 mcg-vilant 25 mcg ea inhalat.powder (Trelegy Ellipta) fluticasone propionate 50 2 spray intranasal DAILY PRN 08/11/23 mcg/actuation nasal Allergy Symptoms #16 grams spray,suspension (Allergy Relief (fluticasone)) montelukast 10 mg tablet 10 mg PO BEDTIME #90 tabs 08/11/23 albuterol sulfate 2.5 mg/3 mL 2.5 mg (3 mL) inhalation Q4-6H PRN 09/06/23 (0.083 %) solution for nebulization for wheezing #75 mL Allergies Allergy/AdvReac Type Severity Reaction Status Date / Time walnut Allergy Unknown SWELLING Verified 09/14/23 07:47 buprenorphine [From Suboxone] Allergy swelling Verified 09/14/23 07:47 in his hands and rash naloxone [From Suboxone] Allergy swelling Verified 09/14/23 07:47 in his hands and rash NSAIDS/ASA Allergy Unknown unknown Uncoded 09/14/23 07:47 walnuts Allergy Unknown anaphylaxis Uncoded 09/14/23 07:47 Review of Systems 2 Review of Systems: Yes all other systems are reviewed and are negative FOR[facility]LY [facility] Past Medical History Attestation statement: The following information was validated with the patient. Source: old records reviewed and nursing notes reviewed Medical History Heroin use Allergic asthma with status asthmaticus Acute on chronic respiratory failure with hypoxia and hypercapnia Moderate persistent asthma with exacerbation Opiate abuse, episodic Left against medical advice Lung problems from crack cocaine Chronic lung disease Asthma Pulmonary emboli Family History Family History Other Family history non-contributory Social History Social History Household Members: Significant Other Housing: House Do you presently have visiting nurse or other home services: Yes (vna) Unable to assess alcohol history related to: Unable to respond Alcohol intake: former Patient Tobacco Use Status: Former Tobacco user Tobacco use type: Cigarette Cigarettes Per Day: 1 Smoked in Last 30 Days: Yes e-Cigarette/Vaping Use: Never Used Second Hand Smoke Exposure: No Use of substances other than those prescribed or required for medical reasons: No Substance Use Type: Crack/Cocaine and Heroin Advance Directives: No service: No Current occupational status: unemployed Cognitive needs: No Hearing needs: No Vision needs: No Physical Exam 2 Vital Signs: Vital Signs: Last Vital Signs Temp 97.6 F 09/14/23 08:03 Pulse 88 09/14/23 10:06 Resp 18 09/14/23 10:06 BP 102/64 09/14/23 10:06 Pulse Ox 98 09/14/23 10:06 O2 Del Method Nasal Cannula 09/14/23 10:06 O2 Flow Rate 2 09/14/23 10:06 FiO2 21 09/14/23 08:43 Oxygen Flow Rate 7 09/14/23 07:44 BMI result Body Mass Index 18.0 vss Appearance: Alert.? Oriented X3.? Patient appears uncomfortable. Head: Normocephalic, atraumatic, no step-offs or deformities Eyes: Pupils equal, round and reactive to light.? ENT: Pharynx normal.? Neck: Normal inspection.? Neck supple.? CVS: Normal heart rate and rhythm.? Pulses normal.? Respiratory:? Breath sounds very little air movement bilaterally with upper expiratory wheezing. Patient appears to be in moderate to severe respiratory distress intercostal retractions, tracheal tugging..? Abdomen: Soft and nontender.? Skin: Skin warm and dry.? Normal skin color.? Normal skin turgor.? Extremities: No lower extremity edema.? No calf ttp. 5/5 strength to bilateral upper and lower extremities Back: No midline tenderness, no C-spine tenderness, full range of motion, no CVA tenderness bilaterally Neuro: Oriented X 3.? No motor deficit.? No sensory deficit. CN 2-12 intact Course Reevaluation(s) Reevaluation #1: Patient looks better after initial intervention however ABG showing a low pH 7.25, elevated pCO2 63, respiratory acidosis. Will place him on BIPAP.. Time: 08:06 Reevaluation #2: CBC with a normocytic anemia appears to be around patient's baseline. Chemistry with elevated BUN this appears to be around patient's baseline. Lactic acid normal. Troponin normal. Blood gas initially respiratory acidosis, repeat blood gas much improved pH 7.35 with a pCO2 of 47. Patient comfortably resting on nasal cannula off of BiPAP at 10:00. Flu, COVID, RSV negative. Chest x-ray unremarkable. Plan is hospital admission. Time: 10:23 Medications Administered Discontinued Medications Generic Name Dose Route Start Last Admin Trade Name Jose PRN Reason Stop Dose Admin Albuterol Sulfate 7.5 mg/ 0 mg 09/14/23 07:46 09/14/23 07:48 Albuterol/Ipratropium 3 ml INHALE 09/14/23 07:47 10 each ONCE ONE Administration Albuterol Sulfate 2.5 mg/ 0 mg 09/14/23 08:34 09/14/23 08:36 Albuterol/Ipratropium 3 ml INHALE 09/14/23 08:35 5 dose ONCE ONE Administration Fentanyl 25 mcg 09/14/23 07:44 09/14/23 07:51 Fentanyl Citrate/Pf 100 Mcg/2 Ml Vial IVPUSH 09/14/23 07:45 25 mcg ONCE ONE Administration Protocol Fentanyl 50 mcg 09/14/23 08:24 09/14/23 08:43 Fentanyl Citrate/Pf 100 Mcg/2 Ml Vial IVPUSH 09/14/23 08:25 Not Given ONCE ONE Protocol Magnesium Sulfate 2 gm in 50 mls @ 25 mls/hr 09/14/23 07:40 09/14/23 08:00 Magnesium Sulfate/H2o IV 09/14/23 09:39 Infused ONCE ONE Infusion Lorazepam 0.5 mg 09/14/23 08:10 09/14/23 08:19 Lorazepam 0.5 Mg Tablet PO 09/14/23 08:11 Not Given ONCE ONE Midazolam HCl 2 mg 09/14/23 08:13 09/14/23 08:17 Midazolam Hcl/Pf 2 Mg/2 Ml Vial IVPUSH 09/14/23 08:14 2 mg ONCE ONE Administration Medical Decision Making Medical Decision Making [facility] Narrative: 1324 48-year-old male presents with shortness of breath since this morning. Physical exam Breath sounds very little air movement bilaterally with upper expiratory wheezing. Patient appears to be in moderate to severe respiratory distress intercostal retractions, tracheal tugging. 80% on RA History and physical exam concerning for chronic lung disease/asthma with hypoxic respiratory failure. Unlikely pneumonia, PE, ACS, dissection. Other differentials include viral illness. Plan will give Mag. Solu-Medrol already given by EMS will hold. Patient extremely tachypneic on arrival will push 25 mcg of fentanyl to decreased respiratory rate. Will obtain labs, x-ray, viral testing. Differential Diagnosis Differential Diagnoses: The differential diagnosis associated with the presentation includes History and physical exam concerning for chronic lung disease/asthma with hypoxic respiratory failure. Unlikely pneumonia, PE, ACS, dissection. Other differentials include viral illness. Admission/Observation Consideration of admission/observation: Escalation of care including admission/observation considered likely Consult Healthcare Provider Management of the patient was discussed with: Hospitalist Lab Data 09/14/23 07:53 09/14/23 07:53 Labs: Lab Results 09/14/23 09/14/23 09/14/23 Range/Units 07:53 07:54 08:01 WBC 10.4 (4.8-10.8) X10*3/uL RBC 4.30 L (4.60-5.80) X10*6/uL Hgb 13.9 L D (14.0-18.0) g/dl Hct 42.0 D (42.0-52.0) % MCV 97.7 (80.0-98.0) fL MCH 32.3 (27.0-33.0) pg MCHC 33.1 (31.0-36.0) g/dl RDW 12.4 (11.0-16.0) % Plt Count 218 (160-400) X10*3/uL MPV 10.0 (9.4-12.4) fL Immature Gran % (Auto) 0.2 (0.0-0.4) % Neut % (Auto) 41.2 L (45-73) % Lymph % (Auto) 35.6 (20-40) % Taylor % (Auto) 11.0 (2-11) % Eos % (Auto) 11.0 H (0-4) % Baso % (Auto) 1.0 (0-2) % Lymph # (Auto) 3.7 (1.2-4.9) X10*3/uL Taylor # (Auto) 1.1 (0.1-1.2) X10*3/uL Eos # (Auto) 1.1 H (0.0-0.4) X10*3/uL Baso # (Auto) 0.1 (0.0-0.2) X10*3/uL Abs Immat Gran (auto) 0.02 (0.00-0.03) X10*3/uL Absolute Neuts (auto) 4.3 (2.0-8.3) x10*3/uL Absolute Nucleated RBC 0.000 (0.0-0.012) X10*3/uL Nucleated RBC % (auto) 0.0 (0.0-0.2) /100WBC O2 Saturation 100.0 % ABG pH at Pt Temp 7.25 L (7.35-7.45) ABG pCO2 at Pt Temp 63 H* (32-45) mmHg ABG pO2 at Pt Temp 175 H (83-108) mmHg ABG HCO3 28 H (22-26) mmol/L ABG Base Excess (Actual) -0.4 mmol/L VBG pH 7.33 (7.32-7.43) VBG pCO2 50 mmHg VBG pO2 90 mmHg VBG HCO3 27 H (22-26) mmol/L VBG O2 Saturation 100.0 % VBG Base Excess 0.4 mmol/L Sodium 145 (135-145) mmol/L Potassium 4.3 (3.3-5.1) mmol/L Chloride 107 (96-108) mmol/L Carbon Dioxide 28 (22-29) mmol/L Anion Gap 14 (12-20) BUN 20 H (9-16) mg/dL Creatinine 0.84 (0.5-1.4) mg/dL Estim Creat Clear Calc 91.0 Estimated GFR > 60 Random Glucose 114 (60-115) mg/dL Lactic Acid 1.0 (0.5-2.0) mmol/L Calcium 9.4 D (8.4-10.2) mg/dL Magnesium 2.4 (1.6-2.6) mg/dL Total Bilirubin 0.6 (0.0-1.0) mg/dL AST 28 (5-37) U/L ALT 15 (0-40) U/L Alkaline Phosphatase 56 (39-117) U/L Troponin I High Sens (<3.5-35.0) ng/L Total Protein 7.3 (6.5-8.0) g/dL Albumin 4.5 (3.5-5.0) g/dL Influenza Type A (PCR) NEGATIVE (Negative) Influenza Type B (PCR) NEGATIVE (Negative) RSV RNA Qual (PCR) NEGATIVE (Negative) SARS-CoV-2 RNA (RT-PCR) NEGATIVE (Negative) 09/14/23 09/14/23 Range/Units 08:06 09:51 WBC (4.8-10.8) X10*3/uL RBC (4.60-5.80) X10*6/uL Hgb (14.0-18.0) g/dl Hct (42.0-52.0) % MCV (80.0-98.0) fL MCH (27.0-33.0) pg MCHC (31.0-36.0) g/dl RDW (11.0-16.0) % Plt Count (160-400) X10*3/uL MPV (9.4-12.4) fL Immature Gran % (Auto) (0.0-0.4) % Neut % (Auto) (45-73) % Lymph % (Auto) (20-40) % Taylor % (Auto) (2-11) % Eos % (Auto) (0-4) % Baso % (Auto) (0-2) % Lymph # (Auto) (1.2-4.9) X10*3/uL Taylor # (Auto) (0.1-1.2) X10*3/uL Eos # (Auto) (0.0-0.4) X10*3/uL Baso # (Auto) (0.0-0.2) X10*3/uL Abs Immat Gran (auto) (0.00-0.03) X10*3/uL Absolute Neuts (auto) (2.0-8.3) x10*3/uL Absolute Nucleated RBC (0.0-0.012) X10*3/uL Nucleated RBC % (auto) (0.0-0.2) /100WBC O2 Saturation 99.0 % ABG pH at Pt Temp 7.35 (7.35-7.45) ABG pCO2 at Pt Temp 47 H (32-45) mmHg ABG pO2 at Pt Temp 100 (83-108) mmHg ABG HCO3 26 (22-26) mmol/L ABG Base Excess (Actual) 0.6 mmol/L VBG pH (7.32-7.43) VBG pCO2 mmHg VBG pO2 mmHg VBG HCO3 (22-26) mmol/L VBG O2 Saturation % VBG Base Excess mmol/L Sodium (135-145) mmol/L Potassium (3.3-5.1) mmol/L Chloride (96-108) mmol/L Carbon Dioxide (22-29) mmol/L Anion Gap (12-20) BUN (9-16) mg/dL Creatinine (0.5-1.4) mg/dL Estim Creat Clear Calc Estimated GFR Random Glucose (60-115) mg/dL Lactic Acid (0.5-2.0) mmol/L Calcium (8.4-10.2) mg/dL Magnesium (1.6-2.6) mg/dL Total Bilirubin (0.0-1.0) mg/dL AST (5-37) U/L ALT (0-40) U/L Alkaline Phosphatase (39-117) U/L Troponin I High Sens < 2.7 (<3.5-35.0) ng/L Total Protein (6.5-8.0) g/dL Albumin (3.5-5.0) g/dL Influenza Type A (PCR) (Negative) Influenza Type B (PCR) (Negative) RSV RNA Qual (PCR) (Negative) SARS-CoV-2 RNA (RT-PCR) (Negative) Independent Interpretation I performed an independent interpretation of an: EKG and Plain X-Ray Radiology Impression Discussion of test interpretation with radiology: I have reviewed the radiologist's reading. External Record Review External record reviewed: Inpatient record, Office record, Outpatient record, Prior outpatient labs, Prior outpatient radiology, Primary care record and Outside ED record Chronic Conditions Patient?s care impacted by: Other (COPD, asthma, polysubstance absuse, depression, anxiety) Social Determinants Patient?s care significantly limited by Social Determinants of Health including: Alcoholism and drug addiction in family and Other Social Determinant of Health Critical Care Time Critical Care Time Critical Care Time: Yes Total Critical Care Time: 45 Attestation: I attest to this time spent taking care of the patient, obtaining history, physical, reviewing labs, imaging, speaking to my attending, specialist or hospitalist. Discharge Plan Discharge Clinical Impression: Acute and chronic respiratory failure with hypoxia Patient Disposition: Admitted As Inpatient Print Language: Armenian
[2023-09-14 07:59] LABS: MANUAL DIFF FLAG NO
[2023-09-14 08:01] LABS: Basophils Absolute Auto 0.1 X10*3/uL (0.0-0.2); Eosinophils Absolute Auto 1.1 X10*3/uL (0.0-0.4); Hemoglobin 13.9 g/dl (14.0-18.0); Imm Gran Abs Auto 0.02 X10*3/uL (0.00-0.03); Imm Gran Pct Auto 0.2 % (0.0-0.4); Lymphocytes Absolute Auto 3.7 X10*3/uL (1.2-4.9); Lymphocytes Percent Auto 35.6 % (20-40); Mean Corpuscular HGB Conc 33.1 g/dl (31.0-36.0); Mean Corpuscular Hemoglobin 32.3 pg (27.0-33.0); Mean Corpuscular Volume 97.7 fL (80.0-98.0); Monocytes Absolute Auto 1.1 X10*3/uL (0.1-1.2); Neutrophils Absolute Auto 4.3 x10*3/uL (2.0-8.3); Neutrophils Percent Auto 41.2 % (45-73); Platelet Count 218 X10*3/uL (160-400); Red Cell Distribution Width 12.4 % (11.0-16.0); White Blood Count 10.4 X10*3/uL (4.8-10.8)
[2023-09-14 08:02] LABS: ABG Base Excess -0.4 mmol/L; ABG HCO3 28 mmol/L (22-26); ABG pCO2 63 mmHg (32-45); ABG pH 7.25 (7.35-7.45); ABG pO2 175 mmHg (83-108)
--- NOTE | 2023-09-14 08:04 | PC.NURSE ---
Pt presents to ED via EMS for severe resp distress, woke up at 6Am this morning with asthma attack. Has hx of COPD and asthma, used inhaler with no relief, has home O2 but did not use it recently. HX of severe asthma attacks with ICU admissions, no previous intubations. EMS gave DuoNeb and 125 mg of solu-medrol, found to be 80% on RA. Pt presents to ED in severe distress, wheezing bilat with little air movement, RR 25-35, tripoding with accessory muscle usage. Alert and oriented, breathing labored, skin diaphoretic.
--- NOTE | 2023-09-14 08:08 | PC.NURSE ---
Pt sinus tach on monitoring and evaluation advisor. RT and PA at bedside. Second IV line established and pt medicated per JUN. Pt reports only pain of a headache, 8/10, otherwise only complaint of severe resp distress. Pt reports feeling overall better with duo neb. Pt placed on BIPAP by RT settings: 15/8, RR 12, FiO2 21%.
[2023-09-14 08:09] LABS: VBG Base Excess 0.4 mmol/L; VBG HCO3 27 mmol/L (22-26); VBG pCO2 50 mmHg; VBG pH 7.33 (7.32-7.43); VBG pO2 90 mmHg
[2023-09-14 08:12] LABS: Venous Blood Gas Refer to POC result
[2023-09-14] MEDS: Midazolam HCl/PF 2 MG/2 ML VIAL IVPUSH (08:17)
[2023-09-14 08:21] LABS: Alanine Aminotransferase 15 U/L (0-40); Albumin Level 4.5 g/dL (3.5-5.0); Alkaline Phosphatase 56 U/L (39-117); Anion Gap 14 (12-20); Aspartate Amino Transferase 28 U/L (5-37); Bilirubin Total 0.6 mg/dL (0.0-1.0); Blood Urea Nitrogen 20 mg/dL (9-16); Calcium 9.4 mg/dL (8.4-10.2); Carbon Dioxide 28 mmol/L (22-29); Chloride 107 mmol/L (96-108); Estimated Glomerular Filt Rate > 60; Glucose Random 114 mg/dL (60-115); Magnesium 2.4 mg/dL (1.6-2.6); Potassium 4.3 mmol/L (3.3-5.1); Sodium 145 mmol/L (135-145); Total Protein 7.3 g/dL (6.5-8.0)
--- NOTE | 2023-09-14 08:29 | PC.RT ---
Pt came into ER via EMS for SOB. EMS stated pt was in the low 80's on RA, was given updrafts en route and on supplemental O2 at this time. Pt audible wheezing, tripoding, pale and diaphoretic, RT gave 10mg updraft per protocol. ABG was obtained and showed a respiratory acidosis. Pt was placed on V60 bipap settings as documented. Pt has moderate anxiety w/ bipap mask, RN gave versed and pt calmed down. Pt now resting on bipap, wale current settings well. Will continue to monitor and use bronchodilator protocol as needed.
--- NOTE | 2023-09-14 08:29 | PC.NURSE ---
Pt noted to have anxiety attack, calmed by RN and RT and medicated per MAR. Pt noted to have positive effect after medications, more calm and tolerating BIPAP well.
[2023-09-14 08:31] LABS: Troponin-I High Sensitivity < 2.7 ng/L (<3.5-35.0)
[2023-09-14] MEDS: Albuterol Sulfate 2.5 MG, Albuterol/Iprat 2.5/0.5MG 3 ML 3 ML INHALE (08:36)
[2023-09-14 08:40] LABS: Influenza A PCR NEGATIVE (Negative); Influenza B PCR NEGATIVE (Negative); Resp Syncy Virus RNA Qual PCR NEGATIVE (Negative); SARS COV2 PCR INHOUSE NEGATIVE (Negative)
[2023-09-14 10:00] LABS: ABG Base Excess 0.6 mmol/L; ABG HCO3 26 mmol/L (22-26); ABG pCO2 47 mmHg (32-45); ABG pH 7.35 (7.35-7.45); ABG pO2 100 mmHg (83-108)
--- NOTE | 2023-09-14 10:05 | PC.RT ---
Repeat ABG arcenio and shows improvement in respiratory acidosis. Pt taken off bipap and placed on 2L NC. Pt wale well, resting comfortably at this time.
--- NOTE | 2023-09-14 10:06 | PC.NURSE ---
Pt switched to NC 2L O2 from Bipap. Pt tolerating well, breathing unlabored, SPO2 98%. VSS. Pt appears comfortable at this time
--- NOTE | 2023-09-14 11:14 | PM.IMHP ---
History of Present Illness Date of Service: 09/14/23 Attending physician on admission: Kaylin Tatum Chief Complaint: SOB Pt is a 48-year-old male with a PMH significant for?chronic hypoxemic hypercapnic respiratory failure due to asthma/COPD overlap syndrome, on home O2 prn, history of PE on Eliquis, and opioid use disorder on methadone who presents to the ED with?increased SOB and difficulty breathing since this morning. Patient reports going to bed in his normal state of health last night. Woke this morning walk to the bathroom and noticed he was having a difficult time breathing. Patient then put on his supplemental O2 and had an updraft to little effect. Increased oxygen to 5L and had another updraft with no noticeable effect. Patient then called EMS. Patient has given conflicting information concerning use of home inhalers: During that is interview reports has been using his maintenance inhalers daily, though previously told ED provider he was not using them regularly. Admits to continuing to snort heroin, last used 2-3 days ago. States smokes half a cigarette 1-2 times monthly. Denies fever, chills. No productive cough. Denies nausea, vomiting, abdominal pain. No chest pain/pressure, palpitations. Of note, this is patient's 5th admission to the hospital this year for asthma/COPD exacerbation. In the ED patient was tachycardic up to 102 tachypneic up to 30, and, arrived in respiratory distress with respiratory acidosis of pH 7.25 and elevated pCO2 of 63. Was placed on BiPAP for two hours to good effect. Repeat blood gas improved to pH 7.35 with pCO2 of 47. Labs were grossly unremarkable and around baseline for patient. No leukocytosis. Stable H&H. No significant electrolyte abnormalities. Renal and hepatic function baseline. Lactic acid WNL. Troponin negative. Tested negative for flu, RSV, and COVID. CXR showed no acute cardiopulmonary disease. EKG demonstrated normal sinus rhythm without evidence significant ST elevations or depressions. Pt was treated with Mag sulfate, DuoNebs, Solu-Medrol, fentanyl, and midazolam. Pt will be admitted to the hospital for treatment and further evaluation of acute on chronic hypoxemic hypercarbic respiratory failure in the setting of acute asthma/COPD overlap exacerbation. Review of Systems Review of Systems: Sudden onset SOB Difficulty breathing Denies productive cough No fever, chills Denies chest pain/pressure, palpitations No abdominal pain [facility] Medical History Heroin use Allergic asthma with status asthmaticus Acute on chronic respiratory failure with hypoxia and hypercapnia Moderate persistent asthma with exacerbation Opiate abuse, episodic Left against medical advice Lung problems from crack cocaine Chronic lung disease Asthma Pulmonary emboli Family History Other Family history non-contributory Social History Household Members: Significant Other Housing: House Do you presently have visiting nurse or other home services: Yes (vna) Unable to assess alcohol history related to: Unable to respond Alcohol intake: former Patient Tobacco Use Status: Former Tobacco user Tobacco use type: Cigarette Cigarettes Per Day: 1 Smoked in Last 30 Days: Yes e-Cigarette/Vaping Use: Never Used Second Hand Smoke Exposure: No Use of substances other than those prescribed or required for medical reasons: No Substance Use Type: Crack/Cocaine and Heroin Advance Directives: No service: No Current occupational status: unemployed Cognitive needs: No Hearing needs: No Vision needs: No Meds Allergies Allergy/AdvReac Type Severity Reaction Status Date / Time walnut Allergy Unknown SWELLING Verified 09/14/23 07:47 buprenorphine [From Suboxone] Allergy swelling Verified 09/14/23 07:47 in his hands and rash naloxone [From Suboxone] Allergy swelling Verified 09/14/23 07:47 in his hands and rash NSAIDS/ASA Allergy Unknown unknown Uncoded 09/14/23 07:47 walnuts Allergy Unknown anaphylaxis Uncoded 09/14/23 07:47 Home Medications ?Medication ?Instructions ?Recorded ?Confirmed ?Last Taken ?Type sennosides 8.6 mg-docusate sodium 1 tab-cap PO BID PRN Constipation 08/29/22 09/14/23 08/06/23 History 50 mg tablet (Senexon-S) methadone 10 mg/mL oral 38 - 48 mg PO DAILY 04/18/23 08/07/23 09/13/23 History concentrate (Methadose) albuterol sulfate 2.5 mg/3 mL 2.5 mg inhalation Q4-6H 09/14/23 09/14/23 09/13/23 History (0.083 %) solution for nebulization Physical Exam Vital Signs and Narrative: Vital Signs: Last Vital Signs Temp 97.6 F 09/14/23 08:03 Pulse 88 09/14/23 10:06 Resp 18 09/14/23 10:06 BP 102/64 09/14/23 10:06 Pulse Ox 98 09/14/23 10:06 O2 Del Method Nasal Cannula 09/14/23 10:06 O2 Flow Rate 2 09/14/23 10:06 FiO2 21 09/14/23 08:43 Oxygen Flow Rate 7 09/14/23 07:44 BMI result Body Mass Index 18.0 Constitutional: Alert, in no acute distress. Mental Status: Oriented to person, place and time. Eyes: Pupils are equal, round, and reactive to light. Ear, Nose, and Throat: Oropharynx clear, mucous membranes moist. Ears and nose without deformities. Trachea midline. Respiratory: Diffuse significant wheezing bilaterally. Cardiovascular: S1, S2 regular. No murmurs, rubs, or gallops. Gastrointestinal: Abdomen soft, non-tender, non-distended. Normal bowel sounds. Neurologic: Cranial nerves II-XII are grossly intact bilaterally. No focal neurological deficits. Moves all extremities spontaneously. Skin: Warm, dry. Extremities: No edema. Psychiatric: Normal mood and affect. Results Labs 09/14/23 07:53 09/14/23 07:53 Labs: Laboratory Results - last 24 hr 09/14/23 09/14/23 09/14/23 07:53 07:54 08:01 MCV 97.7 MCH 32.3 MCHC 33.1 RDW 12.4 Plt Count 218 MPV 10.0 Immature Gran % (Auto) 0.2 Neut % (Auto) 41.2 L Lymph % (Auto) 35.6 Elk % (Auto) 11.0 Eos % (Auto) 11.0 H Baso % (Auto) 1.0 Lymph # (Auto) 3.7 Elk # (Auto) 1.1 Eos # (Auto) 1.1 H Baso # (Auto) 0.1 Abs Immat Gran (auto) 0.02 Absolute Neuts (auto) 4.3 Absolute Nucleated RBC 0.000 Nucleated RBC % (auto) 0.0 O2 Saturation 100.0 ABG pH at Pt Temp 7.25 L ABG pCO2 at Pt Temp 63 H* ABG pO2 at Pt Temp 175 H ABG HCO3 28 H ABG Base Excess (Actual) -0.4 VBG pH 7.33 VBG pCO2 50 VBG pO2 90 VBG HCO3 27 H VBG O2 Saturation 100.0 VBG Base Excess 0.4 Anion Gap 14 Estim Creat Clear Calc 91.0 Estimated GFR > 60 Random Glucose 114 Lactic Acid 1.0 Calcium 9.4 D Magnesium 2.4 Total Bilirubin 0.6 AST 28 ALT 15 Alkaline Phosphatase 56 Troponin I High Sens Total Protein 7.3 Albumin 4.5 Influenza Type A (PCR) NEGATIVE Influenza Type B (PCR) NEGATIVE RSV RNA Qual (PCR) NEGATIVE SARS-CoV-2 RNA (RT-PCR) NEGATIVE 09/14/23 09/14/23 08:06 09:51 MCV MCH MCHC RDW Plt Count MPV Immature Gran % (Auto) Neut % (Auto) Lymph % (Auto) [place]k % (Auto) Eos % (Auto) Baso % (Auto) Lymph # (Auto) [place]k # (Auto) Eos # (Auto) Baso # (Auto) Abs Immat Gran (auto) Absolute Neuts (auto) Absolute Nucleated RBC Nucleated RBC % (auto) O2 Saturation 99.0 ABG pH at Pt Temp 7.35 ABG pCO2 at Pt Temp 47 H ABG pO2 at Pt Temp 100 ABG HCO3 26 ABG Base Excess (Actual) 0.6 VBG pH VBG pCO2 VBG pO2 VBG HCO3 VBG O2 Saturation VBG Base Excess Anion Gap Estim Creat Clear Calc Estimated GFR Random Glucose Lactic Acid Calcium Magnesium Total Bilirubin AST ALT Alkaline Phosphatase Troponin I High Sens < 2.7 Total Protein Albumin Influenza Type A (PCR) Influenza Type B (PCR) RSV RNA Qual (PCR) SARS-CoV-2 RNA (RT-PCR) Imaging Radiologist's Impressions: Impressions Chest X-Ray 09/14/23 09:12 IMPRESSION: Unremarkable examination. Assessment and Plan (1) Acute and chronic respiratory failure with hypoxia: Status: Acute (2) Asthma with COPD with exacerbation: Status: Acute Plan Pt is a 48-year-old male with a PMH significant for?chronic hypoxemic hypercapnic respiratory failure due to asthma/COPD overlap syndrome, on home O2 prn, history of PE on Eliquis, and opioid use disorder on methadone who presents to the ED with?increased SOB and difficulty breathing since this morning. Pt will be admitted to the hospital for treatment and further evaluation of acute on chronic hypoxemic hypercarbic respiratory failure in the setting of acute asthma/COPD overlap exacerbation. Acute on chronic hypoxemic hypercarbic respiratory failure in the setting of acute exacerbation of asthma/COPD overlap syndrome Likely multifactorial: question of non-compliance with home inhalers, continues to snort heroin Continues to desat to 80s on RA, significant wheezing upon auscultation despite treatments in ED No concern for infection, no sepsis: CXR clear, no fever, no leukocytosis; tachycardia secondary to albuterol use, tachypnea secondary to hypoxia No indication for antibiotics at this time Will treat with DuoNebs, Solu-Medrol, benzonatate Continue home inhalers Titrate supplemental O2 >90, wean as tolerated Pulmonology consult given this is pt's 5th admission this year for asthma/COPD exacerbation Hx of PE Continue Eliquis Polysubstance use disorder Long history snorting heroin and cocaine Reports last used heroin 2-3 days prior Continue methadone Addiction medicine consult Full Code Attending:?Dr. Tatum DVT Prophylaxis: On Eliquis Pt will require a hospitalization of at least two nights for treatment of?acute on chronic hypoxemic hypercarbic respiratory failure in the setting of acute asthma/COPD overlap syndrome exacerbation. Patient will require administration of IV steroids, breathing treatments, close monitoring of respiratory status, and specialist consultation with pulmonology. Quality Stroke Does the patient have a stroke diagnosis?: No VTE Prior VTE?: No VTE Risk Level:: Medical - moderate - high VTE Device Contraindication: Treatment Not Indicated VTE Drug Contraindication: N/A - Med Ordered
--- NOTE | 2023-09-14 11:49 | PHA.MEDREC ---
Pharmacy Consult ? Medication Reconciliation Pharmacy has completed the medication reconciliation. Spoke with patient he states he is no longer taking Montelukast. He says he never started Vernicline (chantix). patient couldn't remember if his Methadode dose was 38mg or 48mg delivered from [facility] in [place]. He said he last took yesterday .
[2023-09-14] MEDS: Albuterol/Iprat 2.5/0.5MG 3 ML AMPUL.NEB INHALE ×3 (13:02→18:14)
[2023-09-14] MEDS: Apixaban 5 MG TABLET PO ×2 (14:28→21:24)
[2023-09-14 15:38] LABS: Appearance Urine Clear; Color Urine Yellow; Glucose Urine UA 250 mg/dL (Negative); Leukocyte Esterase Urine Negative (Negative); Nitrite Urine Negative (Negative); PH 5.5 (5.0-9.0); Specific Gravity - Urine >= 1.030 (1.005-1.025); Urine Blood Negative (Negative); Urine Ketones 15 mg/dL (Negative); Urine Protein Trace mg/dL (Neg-Trace)
[2023-09-14] MEDS: 0.9 % Sodium Chloride Flush 3 ML SYRINGE IVFLUSH (15:54)
[2023-09-14 16:12] LABS: Amphetamine Screen Urine Not Detected (Not Detect); Barbiturates, Urine Not Detected (Not Detect); Benzodiazepines Screen Urine POSITIVE (Not Detect); Buprenorphine Scr Not Detected (Not Detect); Cannabinoid Screen Urine Not Detected (Not Detect); Cocaine Screen Urine POSITIVE (Not Detect); Fentanyl, urine POSITIVE (Not Detect); Methadone Screen, Urine Positive (Not Detect); Opiate Screen Urine POSITIVE (Not Detect); Oxycodone Screen Urine Not Detected (Not Detect); Phencyclidine Screen Urine Not Detected (Not Detect)
[2023-09-14] MEDS: methylPREDNISolone Sod Succ 40 MG/ML VIAL IVPUSH (18:10)
[2023-09-14] MEDS: LORazepam 0.5 MG TABLET PO (18:35)
[2023-09-14] MEDS: methADONE HCl 20 MG/2 ML ORAL.CONC 30 MG PO (18:35)
--- NOTE | 2023-09-14 18:57 | HE.PHANOTE ---
Methadone Receives from [facility] ([phone]) per ALFONSO Padron at clinic. Patient receives 48mg take home. Last dose given take home 48mg 09/13 @ 6:07am. They gave him a take home dose this morning but he said he did not take it, came to hospital early this morning.
--- NOTE | 2023-09-14 20:19 | PC.NURSE ---
this rn assumed care of pt, pt resting in stretcher, no acute distress noted. breathing treatment started by RT at this time. pt appears to be sleeping eyes closed, respirations even and unlabored.
[2023-09-14] MEDS: methADONE HCl 20 MG/2 ML ORAL.CONC 18 MG PO (21:24)
--- NOTE | 2023-09-14 21:25 | PC.NURSE ---
pt awake and alert at this time, pt medicated per mar, given dose of methadone at this time. pt tolerated well with water. simple face mask removed pt placed on 3L nasal cannula, sating 92-94%.
[2023-09-15] VITALS (11 sets, daily range): BP systolic 100–138; BP diastolic 56–76; PULSE 72–109; RESP 13–20; TEMP 36.2–37.2; O2SAT 92–101
[2023-09-15] MEDS: Albuterol/Iprat 2.5/0.5MG 3 ML AMPUL.NEB INHALE ×6 (00:10→19:31)
[2023-09-15] MEDS: 0.9 % Sodium Chloride Flush 3 ML SYRINGE IVFLUSH ×3 (00:14→21:03)
--- NOTE | 2023-09-15 00:14 | PC.NURSE ---
pt requesting breathing treatment at this time, dr.vali ag. respiratory at bedside to assess pt and administer duoneb.
[2023-09-15] MEDS: Fluticasone/Umeclidinium/Vilanterol 200/62.5/25 BLST.W.DEV 1 PUFF INHALE (07:29)
[2023-09-15] MEDS: methylPREDNISolone Sod Succ 40 MG/ML VIAL IVPUSH ×2 (08:01→18:25)
[2023-09-15 09:11] LABS: Hematocrit 36.4 % (42.0-52.0); Hemoglobin 12.4 g/dl (14.0-18.0); Mean Corpuscular HGB Conc 34.1 g/dl (31.0-36.0); Mean Corpuscular Hemoglobin 32.3 pg (27.0-33.0); Mean Corpuscular Volume 94.8 fL (80.0-98.0); Mean Platelet Volume 9.9 fL (9.4-12.4); Platelet Count 193 X10*3/uL (160-400); Red Blood Count 3.84 X10*6/uL (4.60-5.80); Red Cell Distribution Width 12.6 % (11.0-16.0); White Blood Count 14.6 X10*3/uL (4.8-10.8)
[2023-09-15 09:14] LABS: VBG Base Excess 8.3 mmol/L; VBG HCO3 33 mmol/L (22-26); VBG pCO2 45 mmHg; VBG pH 7.46 (7.32-7.43); VBG pO2 57 mmHg
[2023-09-15 09:15] LABS: Venous Blood Gas Refer to POC result
[2023-09-15 09:29] LABS: Anion Gap 13 (12-20); Blood Urea Nitrogen 14 mg/dL (9-16); Calcium 9.5 mg/dL (8.4-10.2); Carbon Dioxide 27 mmol/L (22-29); Chloride 106 mmol/L (96-108); Creatinine Clr Calc Pharmacy 99.3; Estimated Glomerular Filt Rate > 60; Glucose Random 121 mg/dL (60-115); Sodium 142 mmol/L (135-145)
[2023-09-15 09:54] LABS: HBS Num1 1.16 mIU/mL (0-7.99); HBsAGNum1 0.32 S/CO (0.00-0.99); HIV AB/AG Nonreactive (Nonreactive); HIV Num 1 0.06 S/CO (0.00-0.99); Hepatitis B Core Antibody Nonreactive (Nonreactive); Hepatitis B Surface Antigen Negative (Negative); ~HepC Num1 0.07 S/CO (0.00-0.79); ~Hepatitis B Surface Antibody NONREACTIVE (Nonreactive); ~Hepatitis C Antibody Nonreactive (Nonreactive)
[2023-09-15] MEDS: Apixaban 5 MG TABLET PO ×2 (10:14→21:02)
--- NOTE | 2023-09-15 11:04 | MHC.CM.PN ---
PATIENT IS FROM HOME W/ GIRLFRIEND. REPORTS HE IS INDP. 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 ACTIVE W/ [facility] FOR DAILY SN AND METHADONE. PCP MEY WILSON LIVESTOCK EXHIBITOR STATES HE HAS AN HCP W/ [facility]. COPY REQUESTED. DP: GOAL IS HOME RESUME SERVICES. MAY NEED BLS. CM WILL CONTINUE TO FOLLOW.
--- NOTE | 2023-09-15 11:44 | HO.PM.IMPN ---
Subjective Subjective Date of Service: 09/15/23 Interval History: wheezing but dyspnea improved c/o purulent sputum no fever Review of Systems Review of Systems: Yes all other systems are reviewed and are negative Physical Exam Vital Signs: Vital Signs: Last Vital Signs Temp 97.7 F 09/15/23 09:20 Pulse 88 09/15/23 11:18 Resp 20 09/15/23 11:18 BP 138/71 09/15/23 09:20 Pulse Ox 95 09/15/23 09:20 O2 Del Method Nasal Cannula 09/15/23 09:20 O2 Flow Rate 4.0 09/15/23 09:20 FiO2 21 09/14/23 08:43 Oxygen Flow Rate 7 09/14/23 07:44 BMI result Body Mass Index 18.0 Gen: in no acute distress HEENT: sclera anicteric, moist mucus membranes Neck: supple Lungs: bilateral expiratory wheezing, prolonged expiratory phase Heart: regular rate and rhythm, no murmurs Abd: soft, non-tender, non-distended Ext: no edema Skin: warm/well-perfused Neuro: alert and oriented x3, no focal findings Psych: appropriate affect Objective Data Active Medications Acetaminophen (Acetaminophen 325 Mg Tablet) 650 mg PO Q6H PRN PRN Reason: Pain, Mild (Pain Scale 1-3) Albuterol/Ipratropium (Albuterol/Iprat 2.5/0.5mg 3 Ml Ampul.Neb) 3 ml INHALE RQ4H WHILE AWAKE [facility] Last Admin: 09/15/23 11:15 Dose: 3 ml Documented By: ANASTASIIA Albuterol/Ipratropium (Albuterol/Iprat 2.5/0.5mg 3 Ml Ampul.Neb) 3 ml INHALE Q4H PRN PRN Reason: Wheezing Last Admin: 09/15/23 06:05 Dose: 3 ml Documented By: CASSOBrian Apixaban (Apixaban 5 Mg Tablet) 5 mg PO BID [facility] Last Admin: 09/15/23 10:14 Dose: 5 mg Documented By: DOBROB Benzonatate (Benzonatate 100 Mg Capsule) 100 mg PO TID PRN PRN Reason: Cough Docusate Sodium (Docusate Sodium 100 Mg Capsule) 100 mg PO DAILY PRN PRN Reason: Constipation Fluticasone Propionate (Fluticasone Propionate Nasal 16 Gm [place]) 2 spray NOSTRIL-B DAILY PRN PRN Reason: Allergy Symptoms Fluticasone/Umeclidinium/Vilanterol (Fluticasone/Umeclidinium/Vilanterol 200/62.5/25 Blst.W.Dev) 1 puff INHALE DAILY [facility] Last Admin: 09/15/23 07:29 Dose: 1 puff Documented By: ANTONY Melatonin (Melatonin 3 Mg Tablet) 6 mg PO BEDTIME PRN PRN Reason: Insomnia Methylprednisolone Sodium Succinate (Methylprednisolone Sod Succ 40 Mg/Ml Vial) 40 mg IVPUSH Q12H [facility] Last Admin: 09/15/23 08:01 Dose: 40 mg Documented By: STEVEN Ondansetron HCl (Ondansetron Hcl 4 Mg/2 Ml Vial) 4 mg IVPUSH Q8H PRN PRN Reason: Nausea and Vomiting Senna/Docusate Sodium (Sennosides/Docusate Sodium Tablet) 1 tab PO BID PRN PRN Reason: Constipation Sodium Chloride (0.9 % Sodium Chloride Flush 3 Ml Syringe) 3 ml IVFLUSH QSHIFT [facility] Last Admin: 09/15/23 08:03 Dose: Not Given Documented By: STEVEN Non-Admin Reason: See Note Labs 09/15/23 09:04 09/15/23 09:03 Labs: Laboratory Results - last 24 hr 09/14/23 09/15/23 09/15/23 15:30 09:03 09:04 MCV 94.8 MCH 32.3 MCHC 34.1 RDW 12.6 Plt Count 193 MPV 9.9 Absolute Nucleated RBC 0.000 Nucleated RBC % (auto) 0.0 VBG pH VBG pCO2 VBG pO2 VBG HCO3 VBG O2 Saturation VBG Base Excess Anion Gap 13 Estim Creat Clear Calc 99.3 Estimated GFR > 60 Random Glucose 121 H Calcium 9.5 Urine Color Yellow Urine Appearance Clear Urine pH 5.5 Ur Specific [place] >= 1.030 H Urine Protein Trace Urine Glucose (UA) 250 H Urine Ketones 15 Urine Blood Negative Urine Nitrite Negative Ur Leukocyte Esterase Negative Urine Opiates Screen POSITIVE H Ur Buprenorphine Scrn Not Detected Ur Oxycodone Screen Not Detected Urine Methadone Screen Positive H Urine Fentanyl Screen POSITIVE H Ur Barbiturates Screen Not Detected Ur Phencyclidine Scrn Not Detected Ur Amphetamines Screen Not Detected U Benzodiazepines Scrn POSITIVE H Urine Cocaine Screen POSITIVE H U Marijuana (THC) Screen Not Detected Hep Bs Antigen Negative Hep Bs Antibody NONREACTIVE Hep B Core Total Ab Nonreactive Hepatitis C Ab (EIA) Nonreactive HIV 1&2 Ab/P24 Ag 4thGn Nonreactive 09/15/23 09:08 MCV MCH MCHC RDW Plt Count MPV Absolute Nucleated RBC Nucleated RBC % (auto) VBG pH 7.46 H VBG pCO2 45 VBG pO2 57 VBG HCO3 33 H VBG O2 Saturation 87.0 VBG Base Excess 8.3 Anion Gap Estim Creat Clear Calc Estimated GFR Random Glucose Calcium Urine Color Urine Appearance Urine pH Ur Specific [place] Urine Protein Urine Glucose (UA) Urine Ketones Urine Blood Urine Nitrite Ur Leukocyte Esterase Urine Opiates Screen Ur Buprenorphine Scrn Ur Oxycodone Screen Urine Methadone Screen Urine Fentanyl Screen Ur Barbiturates Screen Ur Phencyclidine Scrn Ur Amphetamines Screen U Benzodiazepines Scrn Urine Cocaine Screen U Marijuana (THC) Screen Hep Bs Antigen Hep Bs Antibody Hep B Core Total Ab Hepatitis C Ab (EIA) HIV 1&2 Ab/P24 Ag 4thGn Microbiology Microbiology Results: Microbiology 09/14/23 08:06 Blood Culture - Preliminary Blood - Venous No growth after 24 hours. 09/14/23 08:01 Blood Culture - Preliminary Blood - Venous No growth after 24 hours. Assessment and Plan (1) Asthma with COPD with exacerbation: Status: Acute Plan d2 48yo M with chronic hypoxic/hypercarbic RF due to asthma/COPD, on prn home O2; hx PE on Eliquis; OUD on methadone presenting with 1d of dyspnea + purulent sputum was briefly on BiPAP in the ED acute/chronic hypoxic RF due to asthma/COPD exac - continue IV methylprednisolone, standing/prn nebs - Pulm consult - Trelegy - doxycycline 09/14-09/19 hx PE - Eliquis polysubstance abuse disorder - HBV/HCV/HIV screen negative - resume methadone - Addiciton Med consult VTE ppx - LMWH dispo - eventual home In my clinical judgment, the patient requires continued inpatient hospitalization for the following reasons: COPD Total time managing care of this patient today: 35 minutes. Quality Stroke Does the patient have a stroke diagnosis?: No VTE Prior VTE?: No VTE Risk Level:: Medical - moderate - high VTE Device Contraindication: Treatment Not Indicated VTE Drug Contraindication: N/A - Med Ordered
[2023-09-15] MEDS: Doxycycline Monohydrate 100 MG CAPSULE PO ×2 (12:03→23:34)
[2023-09-15] MEDS: methADONE HCl 20 MG/2 ML ORAL.CONC 48 MG PO (12:03)
[2023-09-15] MEDS: Melatonin 3 MG TABLET 6 MG PO (21:02)
[2023-09-15] MEDS: Benzonatate 100 MG CAPSULE PO (21:02)
[2023-09-16] VITALS (8 sets, daily range): BP systolic 112–119; BP diastolic 61–76; PULSE 68–93; RESP 14–20; TEMP 36.3–37; O2SAT 88–96
[2023-09-16] MEDS: Albuterol/Iprat 2.5/0.5MG 3 ML AMPUL.NEB INHALE ×3 (03:37→19:52)
[2023-09-16] MEDS: methylPREDNISolone Sod Succ 40 MG/ML VIAL IVPUSH (06:13)
[2023-09-16] MEDS: Benzonatate 100 MG CAPSULE PO ×2 (06:16→19:47)
[2023-09-16] MEDS: Apixaban 5 MG TABLET PO ×2 (08:33→19:47)
[2023-09-16] MEDS: methADONE HCl 20 MG/2 ML ORAL.CONC 48 MG PO (08:34)
[2023-09-16] MEDS: 0.9 % Sodium Chloride Flush 3 ML SYRINGE IVFLUSH ×3 (08:37→19:47)
--- NOTE | 2023-09-16 08:58 | HO.PM.IMPN ---
Subjective Subjective Date of Service: 09/16/23 Interval History: still wheezing though improved; on 4L O2 Review of Systems Review of Systems: Yes all other systems are reviewed and are negative Physical Exam Vital Signs: Vital Signs: Last Vital Signs Temp 97.8 F 09/16/23 07:44 Pulse 68 09/16/23 07:44 Resp 18 09/16/23 07:44 BP 117/76 09/16/23 07:44 Pulse Ox 94 09/16/23 07:44 O2 Del Method Nasal Cannula 09/16/23 07:44 O2 Flow Rate 4.0 09/16/23 07:44 FiO2 21 09/14/23 08:43 Oxygen Flow Rate 7 09/14/23 07:44 BMI result Body Mass Index 18.0 Gen: in no acute distress HEENT: sclera anicteric, moist mucus membranes Neck: supple Lungs: bilateral expiratory wheezing, prolonged expiratory phase Heart: regular rate and rhythm, no murmurs Abd: soft, non-tender, non-distended Ext: no edema Skin: warm/well-perfused Neuro: alert and oriented x3, no focal findings Psych: appropriate affect Objective Data Active Medications Acetaminophen (Acetaminophen 325 Mg Tablet) 650 mg PO Q6H PRN PRN Reason: Pain, Mild (Pain Scale 1-3) Albuterol/Ipratropium (Albuterol/Iprat 2.5/0.5mg 3 Ml Ampul.Neb) 3 ml INHALE RQ4H WHILE AWAKE [facility] Last Admin: 09/15/23 19:31 Dose: 3 ml Documented By: JESSICA Albuterol/Ipratropium (Albuterol/Iprat 2.5/0.5mg 3 Ml Ampul.Neb) 3 ml INHALE Q4H PRN PRN Reason: Wheezing Last Admin: 09/16/23 03:37 Dose: 3 ml Documented By: TINY Apixaban (Apixaban 5 Mg Tablet) 5 mg PO BID [facility] Last Admin: 09/16/23 08:33 Dose: 5 mg Documented By: GRAZIC Benzonatate (Benzonatate 100 Mg Capsule) 100 mg PO TID PRN PRN Reason: Cough Last Admin: 09/16/23 06:16 Dose: 100 mg Documented By: TANGELA Docusate Sodium (Docusate Sodium 100 Mg Capsule) 100 mg PO DAILY PRN PRN Reason: Constipation Doxycycline Monohydrate (Doxycycline Monohydrate 100 Mg Capsule) 100 mg PO Q12H [facility] Last Admin: 09/15/23 23:34 Dose: 100 mg Documented By: TANGELA Fluticasone Propionate (Fluticasone Propionate Nasal 16 Gm [place]) 2 spray NOSTRIL-B DAILY PRN PRN Reason: Allergy Symptoms Fluticasone/Umeclidinium/Vilanterol (Fluticasone/Umeclidinium/Vilanterol 200/62.5/25 Blst.W.Dev) 1 puff INHALE DAILY [facility] Last Admin: 09/15/23 07:29 Dose: 1 puff Documented By: ANTONY Melatonin (Melatonin 3 Mg Tablet) 6 mg PO BEDTIME PRN PRN Reason: Insomnia Last Admin: 09/15/23 21:02 Dose: 6 mg Documented By: TANGELA Methadone HCl (Methadone Hcl 20 Mg/2 Ml Oral.Conc) 48 mg PO DAILY [facility] Last Admin: 09/16/23 08:34 Dose: 48 mg Documented By: JORDAN Methylprednisolone Sodium Succinate (Methylprednisolone Sod Succ 40 Mg/Ml Vial) 40 mg IVPUSH Q12H [facility] Last Admin: 09/16/23 06:13 Dose: 40 mg Documented By: TANGELA Ondansetron HCl (Ondansetron Hcl 4 Mg/2 Ml Vial) 4 mg IVPUSH Q8H PRN PRN Reason: Nausea and Vomiting Senna/Docusate Sodium (Sennosides/Docusate Sodium Tablet) 1 tab PO BID PRN PRN Reason: Constipation Sodium Chloride (0.9 % Sodium Chloride Flush 3 Ml Syringe) 3 ml IVFLUSH QSHIFT [facility] Last Admin: 09/16/23 08:37 Dose: 3 ml Documented By: JORDAN Labs 09/15/23 09:04 09/15/23 09:03 Labs: Laboratory Results - last 24 hr 09/15/23 09/15/23 09/15/23 09:03 09:04 09:08 MCV 94.8 MCH 32.3 MCHC 34.1 RDW 12.6 Plt Count 193 MPV 9.9 Absolute Nucleated RBC 0.000 Nucleated RBC % (auto) 0.0 VBG pH 7.46 H VBG pCO2 45 VBG pO2 57 VBG HCO3 33 H VBG O2 Saturation 87.0 VBG Base Excess 8.3 Anion Gap 13 Estim Creat Clear Calc 99.3 Estimated GFR > 60 Random Glucose 121 H Calcium 9.5 Hep Bs Antigen Negative Hep Bs Antibody NONREACTIVE Hep B Core Total Ab Nonreactive Hepatitis C Ab (EIA) Nonreactive HIV 1&2 Ab/P24 Ag 4thGn Nonreactive Microbiology Microbiology Results: Microbiology 09/14/23 08:06 Blood Culture - Preliminary Blood - Venous No growth after 24 hours. 09/14/23 08:01 Blood Culture - Preliminary Blood - Venous No growth after 24 hours. Assessment and Plan (1) Asthma with COPD with exacerbation: Status: Acute Plan d3 48yo M with chronic hypoxic/hypercarbic RF due to asthma/COPD, on prn home O2; hx PE on Eliquis; OUD on methadone presenting with 1d of dyspnea + purulent sputum was on BiPAP in the ED for 2h then weaned off then admitted to M/S acute/chronic hypoxic RF due to asthma/COPD exac - continue IV methylprednisolone, standing/prn nebs - Pulm consult pending - continue Trelegy - doxycycline 09/14-09/19 hx PE - Eliquis polysubstance abuse disorder - HBV/HCV/HIV screen negative - resumed methadone - Addiciton Med consult pending VTE ppx - LMWH dispo - eventual home In my clinical judgment, the patient requires continued inpatient hospitalization for the following reasons: COPD, hypoxia Total time managing care of this patient today: 35 minutes. Quality Stroke Does the patient have a stroke diagnosis?: No VTE Prior VTE?: No VTE Risk Level:: Medical - moderate - high VTE Device Contraindication: Treatment Not Indicated VTE Drug Contraindication: N/A - Med Ordered
[2023-09-16] MEDS: Fluticasone/Umeclidinium/Vilanterol 200/62.5/25 BLST.W.DEV 1 PUFF INHALE (09:13)
[2023-09-16] MEDS: methylPREDNISolone Sod Succ 40 MG/ML VIAL 60 MG IVPUSH ×2 (13:02→19:46)
[2023-09-16] MEDS: Doxycycline Monohydrate 100 MG CAPSULE PO ×2 (13:04→23:21)
[2023-09-16] MEDS: Magnesium Sulfate/H2O 2 GM/50 ML PIGGYBACK IV (13:05)
[2023-09-16] MEDS: LORazepam 1 MG TABLET PO (20:15)
--- NOTE | 2023-09-16 21:54 | P.CONPL_ITS ---
History of Present Illness History of Present Illness Consult date: 09/16/23 Chief complaint: Asthma,COPD overlap exacerbation, hypoxia Narrative: This is an inpatient pulmonary consultation. The patient is a 48-year-old male with a PMH significant for?chronic hypoxemic hypercapnic respiratory failure due to asthma/COPD overlap syndrome, on home O2 prn, history of PE on Eliquis, and opioid use disorder on methadone who presents to the ED with?increased SOB and difficulty breathing since this morning. Patient reports going to bed in his normal state of health last night. Woke this morning walk to the bathroom and noticed he was having a difficult time breathing. Admits to continuing to snort heroin. In the ED patient was tachycardic up to 102 tachypneic up to 30, and, arrived in respiratory distress with respiratory acidosis of pH 7.25 and elevated pCO2 of 63. Was placed on BiPAP for two hours to good effect. Repeat blood gas improved to pH 7.35 with pCO2 of 47. Labs were grossly unremarkable and around baseline for patient. No leukocytosis. Stable H&H. No significant electrolyte abnormalities. Renal and hepatic function baseline. Lactic acid WNL. Troponin negative. Tested negative for flu, RSV, and COVID. CXR showed no acute cardiopulmonary disease. The patient is admitted to the hospital to treat his asthma exacerbation. Most likely exacerbated by the recreational drugs. The patient may have crack lung . from the potential inorganic powder use with recreational drugs. Review of Systems 2 Constitutional: Constitutional: Denies fever(s) Eyes: Eyes: Reports no additional eye complaints ENT: Denies nasal obstruction Cardiovascular: Cardiovascular: Reports dyspnea and Reports dyspnea on exertion Respiratory: Respiratory: Denies chest congestion, Reports cough, Denies hemoptysis, Reports dyspnea, Reports dyspnea on exertion and Reports wheezing Gastrointestinal: Gastrointestinal: Reports no additional gastrointestinal complaints Musculoskeletal: Musculoskeletal: Reports no additional musculoskeletal complaints Hematologic/Lymphatic: Hematologic/Lymphatic: Denies easy bleeding Allergic/Immunologic: Allergic/Immunologic: Reports wheezing PMFSH Past Medical History Medical History (Updated 09/14/23 @ 12:15 by CHRISTO Godfrey) Inhales drugs Heroin use Allergic asthma with status asthmaticus Acute on chronic respiratory failure with hypoxia and hypercapnia Moderate persistent asthma with exacerbation Opiate abuse, episodic Left against medical advice Lung problems from crack cocaine Chronic lung disease Asthma Pulmonary emboli Family History Family History Other Family history non-contributory Social History Social History Household Members: Significant Other Caregiver staying overnight: No Housing: House Do you presently have visiting nurse or other home services: Yes Unable to assess alcohol history related to: Unable to respond Alcohol intake: former Patient Tobacco Use Status: Former Tobacco user Tobacco use type: Cigarette Cigarettes Per Day: 1 e-Cigarette/Vaping Use: Never Used Second Hand Smoke Exposure: No Substance Use Type: Crack/Cocaine and Heroin service: No Current occupational status: unemployed Cognitive needs: No Hearing needs: No Vision needs: No Meds Allergies Allergy/AdvReac Type Severity Reaction Status Date / Time walnut Allergy Unknown SWELLING Verified 09/14/23 07:47 buprenorphine [From Suboxone] Allergy swelling Verified 09/14/23 07:47 in his hands and rash naloxone [From Suboxone] Allergy swelling Verified 09/14/23 07:47 in his hands and rash NSAIDS/ASA Allergy Unknown unknown Uncoded 09/14/23 07:47 walnuts Allergy Unknown anaphylaxis Uncoded 09/14/23 07:47 Active Medications: Current Medications Acetaminophen (Acetaminophen 325 Mg Tablet) 650 mg PO Q6H PRN PRN Reason: Pain, Mild (Pain Scale 1-3) Albuterol/Ipratropium (Albuterol/Iprat 2.5/0.5mg 3 Ml Ampul.Neb) 3 ml INHALE RQ4H WHILE AWAKE [facility] Last Admin: 09/16/23 19:52 Dose: 3 ml Albuterol/Ipratropium (Albuterol/Iprat 2.5/0.5mg 3 Ml Ampul.Neb) 3 ml INHALE Q4H PRN PRN Reason: Wheezing Last Admin: 09/16/23 03:37 Dose: 3 ml Apixaban (Apixaban 5 Mg Tablet) 5 mg PO BID [facility] Last Admin: 09/16/23 19:47 Dose: 5 mg Benzonatate (Benzonatate 100 Mg Capsule) 100 mg PO TID PRN PRN Reason: Cough Last Admin: 09/16/23 19:47 Dose: 100 mg Docusate Sodium (Docusate Sodium 100 Mg Capsule) 100 mg PO DAILY PRN PRN Reason: Constipation Doxycycline Monohydrate (Doxycycline Monohydrate 100 Mg Capsule) 100 mg PO Q12H [facility] Last Admin: 09/16/23 13:04 Dose: 100 mg Fluticasone Propionate (Fluticasone Propionate Nasal 16 Gm [place]) 2 spray NOSTRIL-B DAILY PRN PRN Reason: Allergy Symptoms Fluticasone/Umeclidinium/Vilanterol (Fluticasone/Umeclidinium/Vilanterol 200/62.5/25 Blst.W.Dev) 1 puff INHALE DAILY [facility] Last Admin: 09/16/23 09:13 Dose: 1 puff Melatonin (Melatonin 3 Mg Tablet) 6 mg PO BEDTIME PRN PRN Reason: Insomnia Last Admin: 09/15/23 21:02 Dose: 6 mg Methadone HCl (Methadone Hcl 20 Mg/2 Ml Oral.Conc) 48 mg PO DAILY [facility] Last Admin: 09/16/23 08:34 Dose: 48 mg Methylprednisolone Sodium Succinate (Methylprednisolone Sod Succ 40 Mg/Ml Vial) 60 mg IVPUSH Q8H [facility] Last Admin: 09/16/23 19:46 Dose: 60 mg Ondansetron HCl (Ondansetron Hcl 4 Mg/2 Ml Vial) 4 mg IVPUSH Q8H PRN PRN Reason: Nausea and Vomiting Senna/Docusate Sodium (Sennosides/Docusate Sodium Tablet) 1 tab PO BID PRN PRN Reason: Constipation Sodium Chloride (0.9 % Sodium Chloride Flush 3 Ml Syringe) 3 ml IVFLUSH QSHIFT [facility] Last Admin: 09/16/23 19:47 Dose: 3 ml Home Medications ?Medication ?Instructions ?Recorded ?Confirmed ?Last Taken ?Type sennosides 8.6 mg-docusate sodium 1 tab-cap PO BID PRN Constipation 08/29/22 09/14/23 08/06/23 History 50 mg tablet (Senexon-S) methadone 10 mg/mL oral 48 mg PO DAILY 04/18/23 09/14/23 09/13/23 History concentrate (Methadose) albuterol sulfate 2.5 mg/3 mL 2.5 mg inhalation Q4-6H 09/14/23 09/14/23 09/13/23 History (0.083 %) solution for nebulization Physical Exam 2 Vital Signs: Vital Signs: Last Vital Signs Temp 97.8 F 09/16/23 19:46 Pulse 89 09/16/23 19:52 Resp 20 09/16/23 19:52 BP 116/76 09/16/23 19:46 Pulse Ox 93 09/16/23 19:46 O2 Del Method Nasal Cannula 09/16/23 19:46 O2 Flow Rate 4 09/16/23 19:46 FiO2 21 09/14/23 08:43 Oxygen Flow Rate 7 09/14/23 07:44 BMI result Body Mass Index 18.0 Const: General: comfortable and alert Nutritional Appearance: not obese HEENT: Head: Yes atraumatic Eyes: Sclerae: sclerae normal EOM: EOMs intact bilaterally Neck: Neck: Yes supple Lymphatic: no lymphadenopathy noted Chest: Chest palpation & inspection: normal inspection of the chest Resp: Effort & Inspection: normal respiratory effort, no use of accessory muscles and prolonged expiratory phase Auscultation: wheezes expiratory wheezes (Mild throughout) and diminished lung sounds Cardio: Rate: regular rate Rhythm: regular rhythm Heart sounds: no gallops, no murmurs and no rubs GI: Palpation (GI): Soft to palpation Skin: General skin exam: no rashes or lesions noted Extrem: General: No clubbing, No cyanosis and No edema Results Laboratory Findings 09/15/23 09:04 09/15/23 09:03 Abnormal lab findings: Abnormal Labs 09/14/23 09/14/23 09/14/23 07:53 07:54 08:01 WBC RBC 4.30 L Hgb 13.9 L D Hct Neut % (Auto) 41.2 L Eos % (Auto) 11.0 H Eos # (Auto) 1.1 H ABG pH at Pt Temp 7.25 L ABG pCO2 at Pt Temp 63 H* ABG pO2 at Pt Temp 175 H ABG HCO3 28 H VBG pH VBG HCO3 27 H BUN 20 H Random Glucose Ur Specific Dora Urine Glucose (UA) Urine Opiates Screen Urine Methadone Screen Urine Fentanyl Screen U Benzodiazepines Scrn Urine Cocaine Screen 09/14/23 09/14/23 09/15/23 09:51 15:30 09:03 WBC RBC Hgb Hct Neut % (Auto) Eos % (Auto) Eos # (Auto) ABG pH at Pt Temp ABG pCO2 at Pt Temp 47 H ABG pO2 at Pt Temp ABG HCO3 VBG pH VBG HCO3 BUN Random Glucose 121 H Ur Specific Dora >= 1.030 H Urine Glucose (UA) 250 H Urine Opiates Screen POSITIVE H Urine Methadone Screen Positive H Urine Fentanyl Screen POSITIVE H U Benzodiazepines Scrn POSITIVE H Urine Cocaine Screen POSITIVE H 09/15/23 09/15/23 09:04 09:08 WBC 14.6 H RBC 3.84 L Hgb 12.4 L Hct 36.4 L Neut % (Auto) Eos % (Auto) Eos # (Auto) ABG pH at Pt Temp ABG pCO2 at Pt Temp ABG pO2 at Pt Temp ABG HCO3 VBG pH 7.46 H VBG HCO3 33 H BUN Random Glucose Ur Specific Dora Urine Glucose (UA) Urine Opiates Screen Urine Methadone Screen Urine Fentanyl Screen U Benzodiazepines Scrn Urine Cocaine Screen Microbiology: Microbiology 09/14/23 08:06 Blood - Venous Blood Culture - Preliminary No growth after 48 hours. 09/14/23 08:01 Blood - Venous Blood Culture - Preliminary No growth after 48 hours. Assessment and Plan (1) Asthma with COPD with exacerbation: Status: Acute (2) Inhales drugs: Status: Acute (3) Polysubstance abuse: Status: Acute Plan increase Solumedrol continue nebs q2-4 hours continue oxygen to keep pox>90% Assistance with substance abuse Procedures Date of Service Date of Service: 09/16/23
[2023-09-16] MEDS: Melatonin 3 MG TABLET 6 MG PO (23:21)
--- NOTE | 2023-09-17 00:16 | PC.NURSE ---
Addendum entered by Chandrika Camilo RN 09/17/23 06:23: At 0600, pt requested for his methadone early, Dr. Wren was notified, pharmacy verified the order, med given. Original Note: Pt seen on bed and c/o feeling anxious and requesting for med to relieve his anxiety, Dr. Wren was notified, Lorazepam 1 mg po ordered and given, pt was able to sleep after. Pt woke up around midnight and asked for sleep med, prn Melatonin 6 mg po given, slept after, noted with occasional congested cough, tolerating O2 at 4L/min via NC.
[2023-09-17 02:59] VITALS: BP 125/77; PULSE 82; RESP 17; TEMP 36.5; O2SAT 95
[2023-09-17] MEDS: methylPREDNISolone Sod Succ 40 MG/ML VIAL 60 MG IVPUSH (04:16)
[2023-09-17] MEDS: methADONE HCl 20 MG/2 ML ORAL.CONC 48 MG PO (06:17)
[2023-09-17 07:38] VITALS: BP 116/72; PULSE 87; RESP 18; TEMP 36.1; O2SAT 92
[2023-09-17] MEDS: Albuterol/Iprat 2.5/0.5MG 3 ML AMPUL.NEB INHALE (08:05)
[2023-09-17 08:07] VITALS: PULSE 84; RESP 18; O2SAT 92
[2023-09-17] MEDS: Fluticasone/Umeclidinium/Vilanterol 200/62.5/25 BLST.W.DEV 1 PUFF INHALE (08:16)
[2023-09-17] MEDS: Apixaban 5 MG TABLET PO (09:07)
[2023-09-17] MEDS: 0.9 % Sodium Chloride Flush 3 ML SYRINGE IVFLUSH (09:07)
--- NOTE | 2023-09-17 09:18 | PC.NURSE ---
Pt. scored moderate fall risk according to a scale and a history of falls at home but refused bed alarm and a chair alarm. Education about safety provided, use of call flores encouraged, call flores within reach.
--- NOTE | 2023-09-17 10:05 | P.PNADD_ITS ---
Subjective Subjective Date of Service: 09/17/23 Reason For Visit: Asthma,COPD overlap exacerbation, hypoxia Interim History: Patient is a 48 year old male with OUD hospitalized with COPD exacerbation. Patient known to [facility] via previous admissions He is engaged in treatment for OUD with methadone-current dose 48mg daily. Consult requested as patient reporting ongoing [place] opioate use. Patient seen in room 358. He is awake, alert, slighted guarded, but engaged in interview. He reports minimal substance use and identified recent anniversary of his parents as a trigger. This policy writer inquired about possibly increasing methadone dose to address increased use, patient declined stating that he has actually been decreasing dose and getting medication with regularity as he now has a visiting nurse come to administer it. He is very knowledgeable about harm reduction and recovery supports in general He states he has strong supports with his partner at home and medical providers. Review of Systems Constitutional: Reports as per HPI and Reports no additional constitutional complaints Mental Status Exam Mental Status Exam Patient Appearance: Appropriate Level of Consciousness: Awake and Alert Patient Behavior: Appropriate, Guarded and Cooperative Mood Description: Calm Affect Description: Calm Speech Pattern: Clear Judgement: Good Diagnostics Vital Signs (24Hr): Vital Signs - 24 hr 09/16/23 11:34 09/16/23 15:40 09/16/23 19:46 Temperature 98.6 F 97.8 F Pulse Rate 84 93 83 Respiratory Rate 20 14 18 Blood Pressure 112/61 116/76 Pulse Oximetry 93 93 Oxygen Delivery Method Nasal Cannula Nasal Cannula Oxygen Flow Rate 4 4 09/16/23 19:52 09/17/23 02:59 09/17/23 07:38 Temperature 97.7 F 97.0 F Pulse Rate 89 82 87 Respiratory Rate 20 17 18 Blood Pressure 125/77 116/72 Pulse Oximetry 95 92 Oxygen Delivery Method Nasal Cannula Nasal Cannula Oxygen Flow Rate 2 4 09/17/23 08:07 Temperature Pulse Rate 84 Respiratory Rate 18 Blood Pressure Pulse Oximetry Oxygen Delivery Method Oxygen Flow Rate BMI result Body Mass Index 18.0 Labs 09/15/23 09:04 09/15/23 09:03 Labs: Laboratory Results - last 48 hr 09/15/23 09:03 Hep Bs Antigen Negative Hep Bs Antibody NONREACTIVE Hep B Core Total Ab Nonreactive Hepatitis C Ab (EIA) Nonreactive HIV 1&2 Ab/P24 Ag 4thGn Nonreactive Imaging Radiology Impressions: ITS Impressions Chest X-Ray 09/14/23 09:12 IMPRESSION: Unremarkable examination. Medications Medications Current Medications Acetaminophen (Acetaminophen 325 Mg Tablet) 650 mg PO Q6H PRN PRN Reason: Pain, Mild (Pain Scale 1-3) Albuterol/Ipratropium (Albuterol/Iprat 2.5/0.5mg 3 Ml Ampul.Neb) 3 ml INHALE RQ4H WHILE AWAKE [facility] Last Admin: 09/17/23 08:05 Dose: 3 ml Albuterol/Ipratropium (Albuterol/Iprat 2.5/0.5mg 3 Ml Ampul.Neb) 3 ml INHALE Q4H PRN PRN Reason: Wheezing Last Admin: 09/16/23 03:37 Dose: 3 ml Apixaban (Apixaban 5 Mg Tablet) 5 mg PO BID [facility] Last Admin: 09/17/23 09:07 Dose: 5 mg Benzonatate (Benzonatate 100 Mg Capsule) 100 mg PO TID PRN PRN Reason: Cough Last Admin: 09/16/23 19:47 Dose: 100 mg Docusate Sodium (Docusate Sodium 100 Mg Capsule) 100 mg PO DAILY PRN PRN Reason: Constipation Doxycycline Monohydrate (Doxycycline Monohydrate 100 Mg Capsule) 100 mg PO Q12H [facility] Last Admin: 09/16/23 23:21 Dose: 100 mg Fluticasone Propionate (Fluticasone Propionate Nasal 16 Gm [place]) 2 spray NOSTRIL-B DAILY PRN PRN Reason: Allergy Symptoms Fluticasone/Umeclidinium/Vilanterol (Fluticasone/Umeclidinium/Vilanterol 200/62.5/25 Blst.W.Dev) 1 puff INHALE DAILY [facility] Last Admin: 09/17/23 08:16 Dose: 1 puff Melatonin (Melatonin 3 Mg Tablet) 6 mg PO BEDTIME PRN PRN Reason: Insomnia Last Admin: 09/16/23 23:21 Dose: 6 mg Methadone HCl (Methadone Hcl 20 Mg/2 Ml Oral.Conc) 48 mg PO DAILY@0600 [facility] Last Admin: 09/17/23 06:17 Dose: 48 mg Methylprednisolone Sodium Succinate (Methylprednisolone Sod Succ 40 Mg/Ml Vial) 60 mg IVPUSH Q8H [facility] Last Admin: 09/17/23 04:16 Dose: 60 mg Ondansetron HCl (Ondansetron Hcl 4 Mg/2 Ml Vial) 4 mg IVPUSH Q8H PRN PRN Reason: Nausea and Vomiting Senna/Docusate Sodium (Sennosides/Docusate Sodium Tablet) 1 tab PO BID PRN PRN Reason: Constipation Sodium Chloride (0.9 % Sodium Chloride Flush 3 Ml Syringe) 3 ml IVFLUSH QSHIFT [facility] Last Admin: 09/17/23 09:07 Dose: 3 ml Allergies Allergies Allergy/AdvReac Type Severity Reaction Status Date / Time walnut Allergy Unknown SWELLING Verified 09/14/23 07:47 buprenorphine [From Suboxone] Allergy swelling Verified 09/14/23 07:47 in his hands and rash naloxone [From Suboxone] Allergy swelling Verified 09/14/23 07:47 in his hands and rash NSAIDS/ASA Allergy Unknown unknown Uncoded 09/14/23 07:47 walnuts Allergy Unknown anaphylaxis Uncoded 09/14/23 07:47 Assessment & Plan Assessment & Plan (1) Opioid use disorder: Status: Acute Code(s): F11.90 - Opioid use, unspecified, uncomplicated Assessment and Plan: * currently on methadone 48mg QD * discussed increasing dose to address ongoing use, patient declines, states he feels comfortable at this dose * risk reduction discussion * no additional follow up needed at this time Total time managing care of this patient today _20___ minutes.
--- NOTE | 2023-09-17 10:44 | P.DS_ITS ---
DS: Providers Provider Date of Service: 09/17/23 Date of admission: 09/14/23 11:58 Date of discharge: 09/17/23 Primary care physician: MUNIR Dunn- Consults: 09/14/23 12:05 Addiction Medicine Routine Consulting Provider: Addiction Covering Reason for consultation: Continued heroin use, on methadone Consult to Pulmonology Routine Consulting Provider: [facility] [place] Pulmonology Services Reason for consultation: 5th admission in 2023 for asthma/COPD exacerbation DS: Diagnosis Discharge Diagnosis (1) Opioid use disorder: Status: Acute (2) Asthma with COPD with exacerbation: Status: Acute (3) Acute on chronic respiratory failure with hypoxia and hypercapnia: Status: Acute (4) Polysubstance abuse: Status: Acute DS: Summary Hospital Course Hospital Course: From the history and physical by the admitting hospitalist, CHRISTO Godfrey, 09/14/23: Pt is a 48-year-old male with a PMH significant for?chronic hypoxemic hypercapnic respiratory failure due to asthma/COPD overlap syndrome, on home O2 prn, history of PE on Eliquis, and opioid use disorder on methadone who presents to the ED with?increased SOB and difficulty breathing since this morning. Patient reports going to bed in his normal state of health last night. Woke this morning walk to the bathroom and noticed he was having a difficult time breathing. Patient then put on his supplemental O2 and had an updraft to little effect. Increased oxygen to 5L and had another updraft with no noticeable effect. Patient then called EMS. Patient has given conflicting information concerning use of home inhalers: During that is interview reports has been using his maintenance inhalers daily, though previously told ED provider he was not using them regularly. Admits to continuing to snort heroin, last used 2-3 days ago. States smokes half a cigarette 1-2 times monthly. Denies fever, chills. No productive cough. Denies nausea, vomiting, abdominal pain. No chest pain/pressure, palpitations. Of note, this is patient's 5th admission to the hospital this year for asthma/COPD exacerbation. In the ED patient was tachycardic up to 102 tachypneic up to 30, and, arrived in respiratory distress with respiratory acidosis of pH 7.25 and elevated pCO2 of 63. Was placed on BiPAP for two hours to good effect. Repeat blood gas improved to pH 7.35 with pCO2 of 47. Labs were grossly unremarkable and around baseline for patient. No leukocytosis. Stable H&H. No significant electrolyte abnormalities. Renal and hepatic function baseline. Lactic acid WNL. Troponin negative. Tested negative for flu, RSV, and COVID. CXR showed no acute cardiopulmonary disease. EKG demonstrated normal sinus rhythm without evidence significant ST elevations or depressions. Pt was treated with Mag sulfate, DuoNebs, Solu-Medrol, fentanyl, and midazolam. Pt will be admitted to the special care hospital for treatment and further evaluation of acute on chronic hypoxemic hypercarbic respiratory failure in the setting of acute asthma/COPD overlap exacerbation. 48yo M with chronic hypoxic/hypercarbic RF due to asthma/COPD, on prn home O2; hx PE on Eliquis; OUD on methadone. He presented with 1d of dyspnea + purulent sputum; was on BiPAP in the ED for 2h then weaned off then admitted to the medical-surgical floor where he was treated with IV methylprednisolone and nebulizer treatments along with doxycycline. He improved and was discharged on a prolonged, slow prednisone taper over 20 days. As for polysbustance abuse [heroin and cocaine], screen for HBV/HCV/HIV was negative. Methadone was continued. He met with the Addiction Medicine specialist and no additional treatment was needed. He was counseled to avoid illicit drug use. Time Attestation Discharge Coordination Time (in mins): 35 Quality: Safe Use of Opioids Does Pt have an Active Cancer Diagnosis on the Problem List?: No Quality: Stroke Does the patient have a stroke diagnosis?: No Physical Exam Vital Signs: Vital Signs: Last Vital Signs Temp 97.0 F 09/17/23 07:38 Pulse 84 09/17/23 08:07 Resp 18 09/17/23 08:07 BP 116/72 09/17/23 07:38 Pulse Ox 92 09/17/23 07:38 O2 Del Method Nasal Cannula 09/17/23 07:38 O2 Flow Rate 4 09/17/23 07:38 FiO2 21 09/14/23 08:43 Oxygen Flow Rate 7 09/14/23 07:44 BMI result Body Mass Index 18.0 Gen: in no acute distress HEENT: sclera anicteric, moist mucus membranes Neck: supple Lungs: clear to auscultation bilaterally Heart: regular rate and rhythm, no murmurs Abd: soft, non-tender, non-distended Ext: no edema Skin: warm/well-perfused Neuro: alert and oriented x3, no focal findings Psych: appropriate affect DS: Data Data Completed and Pending Completed studies during hospitalization [Text1]: Laboratory Results WBC 14.6 X10*3/uL (4.8-10.8) H 09/15/23 09:04 RBC 3.84 X10*6/uL (4.60-5.80) L 09/15/23 09:04 Hgb 12.4 g/dl (14.0-18.0) L 09/15/23 09:04 Hct 36.4 % (42.0-52.0) L 09/15/23 09:04 MCV 94.8 fL (80.0-98.0) 09/15/23 09:04 MCH 32.3 pg (27.0-33.0) 09/15/23 09:04 MCHC 34.1 g/dl (31.0-36.0) 09/15/23 09:04 RDW 12.6 % (11.0-16.0) 09/15/23 09:04 Plt Count 193 X10*3/uL (160-400) 09/15/23 09:04 MPV 9.9 fL (9.4-12.4) 09/15/23 09:04 Immature Gran % (Auto) 0.2 % (0.0-0.4) 09/14/23 07:53 Neut % (Auto) 41.2 % (45-73) L 09/14/23 07:53 Lymph % (Auto) 35.6 % (20-40) 09/14/23 07:53 [place] % (Auto) 11.0 % (2-11) 09/14/23 07:53 Eos % (Auto) 11.0 % (0-4) H 09/14/23 07:53 Baso % (Auto) 1.0 % (0-2) 09/14/23 07:53 Lymph # (Auto) 3.7 X10*3/uL (1.2-4.9) 09/14/23 07:53 [place] # (Auto) 1.1 X10*3/uL (0.1-1.2) 09/14/23 07:53 Eos # (Auto) 1.1 X10*3/uL (0.0-0.4) H 09/14/23 07:53 Baso # (Auto) 0.1 X10*3/uL (0.0-0.2) 09/14/23 07:53 Abs Immat Gran (auto) 0.02 X10*3/uL (0.00-0.03) 09/14/23 07:53 Absolute Neuts (auto) 4.3 x10*3/uL (2.0-8.3) 09/14/23 07:53 Absolute Nucleated RBC 0.000 X10*3/uL (0.0-0.012) 09/15/23 09:04 Nucleated RBC % (auto) 0.0 /100WBC (0.0-0.2) 09/15/23 09:04 O2 Saturation 99.0 % 09/14/23 09:51 ABG pH at Pt Temp 7.35 (7.35-7.45) 09/14/23 09:51 ABG pCO2 at Pt Temp 47 mmHg (32-45) H 09/14/23 09:51 ABG pO2 at Pt Temp 100 mmHg (83-108) 09/14/23 09:51 ABG HCO3 26 mmol/L (22-26) 09/14/23 09:51 ABG Base Excess (Actual) 0.6 mmol/L 09/14/23 09:51 VBG pH 7.46 (7.32-7.43) H 09/15/23 09:08 VBG pCO2 45 mmHg 09/15/23 09:08 VBG pO2 57 mmHg 09/15/23 09:08 VBG HCO3 33 mmol/L (22-26) H 09/15/23 09:08 VBG O2 Saturation 87.0 % 09/15/23 09:08 VBG Base Excess 8.3 mmol/L 09/15/23 09:08 Sodium 142 mmol/L (135-145) 09/15/23 09:03 Potassium 4.0 mmol/L (3.3-5.1) 09/15/23 09:03 Chloride 106 mmol/L (96-108) 09/15/23 09:03 Carbon Dioxide 27 mmol/L (22-29) 09/15/23 09:03 Anion Gap 13 (12-20) 09/15/23 09:03 BUN 14 mg/dL (9-16) 09/15/23 09:03 Creatinine 0.77 mg/dL (0.5-1.4) 09/15/23 09:03 Estim Creat Clear Calc 99.3 09/15/23 09:03 Estimated GFR > 60 09/15/23 09:03 Random Glucose 121 mg/dL (60-115) H 09/15/23 09:03 Lactic Acid 1.0 mmol/L (0.5-2.0) 09/14/23 08:01 Calcium 9.5 mg/dL (8.4-10.2) 09/15/23 09:03 Magnesium 2.4 mg/dL (1.6-2.6) 09/14/23 07:53 Total Bilirubin 0.6 mg/dL (0.0-1.0) 09/14/23 07:53 AST 28 U/L (5-37) 09/14/23 07:53 ALT 15 U/L (0-40) 09/14/23 07:53 Alkaline Phosphatase 56 U/L (39-117) 09/14/23 07:53 Troponin I High Sens < 2.7 ng/L (<3.5-35.0) 09/14/23 08:06 Total Protein 7.3 g/dL (6.5-8.0) 09/14/23 07:53 Albumin 4.5 g/dL (3.5-5.0) 09/14/23 07:53 Urine Color Yellow 09/14/23 15:30 Urine Appearance Clear 09/14/23 15:30 Urine pH 5.5 (5.0-9.0) 09/14/23 15:30 Ur Specific [place] >= 1.030 (1.005-1.025) H 09/14/23 15:30 Urine Protein Trace mg/dL (Neg-Trace) 09/14/23 15:30 Urine Glucose (UA) 250 mg/dL (Negative) H 09/14/23 15:30 Urine Ketones 15 mg/dL (Negative) 09/14/23 15:30 Urine Blood Negative (Negative) 09/14/23 15:30 Urine Nitrite Negative (Negative) 09/14/23 15:30 Ur Leukocyte Esterase Negative (Negative) 09/14/23 15:30 Urine Opiates Screen POSITIVE (Not Detect) H 09/14/23 15:30 Ur Buprenorphine Scrn Not Detected ng/mL (Not Detect) 09/14/23 15:30 Ur Oxycodone Screen Not Detected ng/mL (Not Detect) 09/14/23 15:30 Urine Methadone Screen Positive ng/mL (Not Detect) H 09/14/23 15:30 Urine Fentanyl Screen POSITIVE (Not Detect) H 09/14/23 15:30 Ur Barbiturates Screen Not Detected (Not Detect) 09/14/23 15:30 Ur Phencyclidine Scrn Not Detected (Not Detect) 09/14/23 15:30 Ur Amphetamines Screen Not Detected (Not Detect) 09/14/23 15:30 U Benzodiazepines Scrn POSITIVE (Not Detect) H 09/14/23 15:30 Urine Cocaine Screen POSITIVE (Not Detect) H 09/14/23 15:30 U Marijuana (THC) Screen Not Detected (Not Detect) 09/14/23 15:30 Hep Bs Antigen Negative (Negative) 09/15/23 09:03 Hep Bs Antibody NONREACTIVE (Nonreactive) 09/15/23 09:03 Hep B Core Total Ab Nonreactive (Nonreactive) 09/15/23 09:03 Hepatitis C Ab (EIA) Nonreactive (Nonreactive) 09/15/23 09:03 HIV 1&2 Ab/P24 Ag 4thGn Nonreactive (Nonreactive) 09/15/23 09:03 Influenza Type A (PCR) NEGATIVE (Negative) 09/14/23 07:53 Influenza Type B (PCR) NEGATIVE (Negative) 09/14/23 07:53 RSV RNA Qual (PCR) NEGATIVE (Negative) 09/14/23 07:53 SARS-CoV-2 RNA (RT-PCR) NEGATIVE (Negative) 09/14/23 07:53 Impressions Chest X-Ray 09/14/23 09:12 IMPRESSION: Unremarkable examination. Labs on day of discharge: Preliminary micro results at discharge 09/14/23 08:06 Blood Culture - Preliminary Blood - Venous No growth after 48 hours. 09/14/23 08:01 Blood Culture - Preliminary Blood - Venous No growth after 48 hours. Discharge Plan Discharge Anticipated Discharge Date/Time: 09/17/23 10:37 Patient Disposition: Home, Self-Care Discharge Diagnosis: hypoxia due to asthma/COPD exacerbation Referrals: Glogowski,Wan, MUNIR- [Primary Care Provider] - 1 Week Riley Borjas MD [Physician] - 3 Weeks Discharge Medications: New doxycycline monohydrate 100 mg Capsule 100 mg PO Q12H Qty: 6 0RF prednisone 10 mg tablet See Rx Instructions .ROUTE .COMPLEX Qty: 42 0RF Rx Instructions: 40 mg daily x 4 days, then 30 mg daily x 4 days, then 20 mg daily x 4 days, then 10 mg daily x 4 days, then 5 mg daily x 4 days Continued (DME) nebulizers [facility] [place], [place] See Rx Instructions .Route Qty: 1 0RF Rx Instructions: Use every 4 hours as needed for SOB, wheezing albuterol sulfate [Ventolin HFA] 90 mcg/actuation HFA aerosol inhaler 2 puff PO Q4-6H PRN (Reason: for wheezing) Qty: 18 2RF Eliquis 5 mg tablet 5 mg PO BID Qty: 120 2RF fluticasone propionate [Allergy Relief (fluticasone)] 50 mcg/actuation spray,suspension 2 spray intranasal DAILY PRN (Reason: Allergy Symptoms) Qty: 16 0RF Rx Instructions: administer into each nostril Future refills considered AFTER blood work completed Trelegy Ellipta 200-62.5-25 mcg blister with device 1 inh inhalation DAILY 30 Days Qty: 1 6RF methadone [Methadose] 10 mg/mL Concentrate 48 mg PO DAILY Rx Instructions: verified dose with [facility] albuterol sulfate 2.5 mg /3 mL (0.083 %) solution for nebulization 2.5 mg inhalation Q4-6H sennosides-docusate sodium [Senexon-S] 8.6-50 mg tablet 1 tab-cap PO BID PRN (Reason: Constipation) Discharge Orders: Discharge Order (Routine); Ordered 09/17/23 Ordered By: Kaylin Tatum Diet: Advance to usual diet Activity on Discharge: As tolerated Stand Alone Forms: Patient Portal Discharge page Print Language: Uzbek Care Plan Goals: lung health sober living Health Concerns: See Discharge Summary. Plan of Treatment: prednisone 10 mg tabs, taper as follows: 40 mg (4 tabs) daily x 4 days, then 30 mg (3 tabs) daily x 4 days, then 20 mg (2 tabs) daily x 4 days, then 10 mg (1 tab) daily x 4 days. then 5 mg (half tab) daily x 4 days take doxycycline 100 mg twice daily for 3 days continue nebulizer treatments continue Trelegy O2 2-3L as needed follow up with your plumbing designer in 3-4 weeks avoid drug use continue methadone Please follow up with your primary care doctor within 1 week. Return to the hospital if you experience recurrent or worsening symptoms. Assessment: See Discharge Summary.
--- NOTE | 2023-09-17 10:55 | P.CDIM_ITS ---
PROVIDER RESPONSE TEXT: To clarify, the appropriate diagnosis supported by the clinical indicators: Other (explain): asthma/COPD overlap syndrome with acute exacerbation QUERY TEXT: PHYSICIAN'S DOCUMENTATION REQUEST Date of Query: 09/17/2023 09:46 AM EDT Patient Name: Shiraz Cruz Admit Date: 09/14/2023 Dear Kaylin Tatum, A review of the medical record indicates additional documentation may be needed. Please review below and update the documentation accordingly. Clinical indicators: Acute on chronic hypoxic AR due to asthma/COPD exac. Continue IV methylprednisolone, standing/prn nebs Based on the above, please clarify in the Progress Notes further specificity regarding the type and o f asthma: Mild intermittent Mild persistent Moderate persistent Severe persistent Other (explain) Clinically unable to determine (explain) Thank you, Zoraida Sunshine, CCS, CDIS Use of terms such as suspected, likely, concern for, or probable (associated with a specific diagnosi s that is being evaluated, monitored, or treated as if it exists) are acceptable and can be coded in the inpatient se tting, when documented at the time of discharge. Please use your independent medical judgment in providing your response. THIS QUERY IS PART OF THE PERMANENT MEDICAL RECORD
--- NOTE | 2023-09-17 11:09 | MHC.CM.PN ---
Patient is discharged to home today. [facility] will resume services tomorrow. A Last dose letter has been given to the patient. Patient has arranged for his sister to provide a ride home.
== END 2023-09-17 11:27 | disposition home or self-care (01) | DRG 140 ==
LOC: HO.ED 09:20 → HO.EDOVER 12:07 → HO.S3 09-15 07:39
PROVIDERS: Physician Assistant; Admitting Provider Student in an Organized Health Care Education/Training Program; Emergency Provider Emergency Medicine Emergency Medical Services; PCP Nurse Practitioner Family; Visit Provider Family Medicine
DX: J44.1 Chronic obstructive pulmonary disease with (acute) exacerbation (principal); J96.21 Acute and chronic respiratory failure with hypoxia; Z99.81 Dependence on supplemental oxygen; J45.901 Unspecified asthma with (acute) exacerbation; F11.20 Opioid dependence, uncomplicated; Z20.822 Contact with and (suspected) exposure to COVID-19; F19.90 Other psychoactive substance use, unspecified, uncomplicated; F14.10 Cocaine abuse, uncomplicated; Z86.711 Personal history of pulmonary embolism; Z91.199 Patient's noncompliance with other medical treatment and regimen due to unspecified reason; Z79.01 Long term (current) use of anticoagulants; Z87.891 Personal history of nicotine dependence; Z79.51 Long term (current) use of inhaled steroids; Z79.899 Other long term (current) drug therapy
CPT/HCPCS: 0241U; 36415; 71045; 80048; 80053; 80307; 81003; 82803; 83605; 83735; 84484; 85025; 85027; 86704; 86706; 86803; 87040; 87340; 87389; 93005; 94640; 99285; J2250; J2919; J3010; J3475

== ENCOUNTER → 2023-09-14 07:41 | Outpatient (BNV) | payer OTHER, SELFPAY | PROVIDERS: Admitting Provider Student in an Organized Health Care Education/Training Program; Emergency Provider Emergency Medicine Emergency Medical Services; PCP Nurse Practitioner Family; Visit Provider Internal Medicine Cardiovascular Disease | DX: R06.02 Shortness of breath (principal); I45.19 Other right bundle-branch block | CPT/HCPCS: 93010 ==

== ENCOUNTER → 2023-09-14 11:58 | Outpatient (BNV) | payer OTHER, SELFPAY | PROVIDERS: Admitting Provider Student in an Organized Health Care Education/Training Program; Emergency Provider Emergency Medicine Emergency Medical Services; PCP Nurse Practitioner Family; Visit Provider Nurse Practitioner Psychiatric/Mental Health | DX: F11.90 Opioid use, unspecified, uncomplicated (principal) | CPT/HCPCS: 99231 ==

== ENCOUNTER → 2023-09-14 11:58 | Outpatient (BNV) | payer OTHER, SELFPAY | PROVIDERS: Admitting Provider Student in an Organized Health Care Education/Training Program; Emergency Provider Emergency Medicine Emergency Medical Services; PCP Nurse Practitioner Family; Visit Provider Hospitalist | DX: J44.1 Chronic obstructive pulmonary disease with (acute) exacerbation (principal); J45.901 Unspecified asthma with (acute) exacerbation; F19.10 Other psychoactive substance abuse, uncomplicated | CPT/HCPCS: 99222 ==

== ENCOUNTER → 2023-09-14 11:58 | Outpatient (BNV) | payer OTHER, SELFPAY | PROVIDERS: Admitting Provider Student in an Organized Health Care Education/Training Program; Emergency Provider Emergency Medicine Emergency Medical Services; PCP Nurse Practitioner Family; Visit Provider Student in an Organized Health Care Education/Training Program | DX: J96.21 Acute and chronic respiratory failure with hypoxia (principal); J44.1 Chronic obstructive pulmonary disease with (acute) exacerbation; J45.901 Unspecified asthma with (acute) exacerbation | CPT/HCPCS: 99223; 99232; 99239 ==

== ENCOUNTER 2023-10-01 11:23 | Outpatient (AMB) | payer OTHER, SELFPAY ==
--- NOTE | 2023-10-01 11:26 | A.OFFVIS_ITS ---
Vital Signs 10/01/23 11:27 Height 5 ft 11 in Weight 124 lb 8.979 oz BMI 17.4 BP 98/52 L Blood Pressure Location Rt brachial Position Sitting Pulse 104 H Pulse Source Pulse Oximeter Pulse Oximetry (%) 96 Oxygen Delivery Method Room Air Intake Visit Reasons: 2wk HDF/asthma,COPD exacerbation Allergies walnut Allergy (Unknown, Verified 10/01/23 11:30) SWELLING buprenorphine [From Suboxone] Allergy (Verified 10/01/23 11:30) swelling in his hands and rash naloxone [From Suboxone] Allergy (Verified 10/01/23 11:30) swelling in his hands and rash NSAIDS/ASA Allergy (Unknown, Uncoded 10/01/23 11:30) unknown walnuts Allergy (Unknown, Uncoded 10/01/23 11:30) anaphylaxis HPI HPI 2wk HDF/asthma,COPD exacerbation: Details: Shiraz is a pleasant 48 year old male, former smoker, with underlying severe persistent allergic asthma, PE?now on Eliquis, cocaine induced lung injury, h/o substance abuse on methadone and environmental allergies. His symptoms were previously controlled on Xolair, however patient discontinued as [place] was [place] the [place] and never restarted. He has been maintained on Trelegy, Singulair, and albuterol MDI/nebs with suboptimal control. Today he presents for a hospital discharge follow up. [place] [facility] [place] for acute on chronic respiratory failure with hypoxemia and hypercapnia secondary to recreational substance abuse. He presented to the ED with increased dyspnea with recent reports of snorting heroin. In the ED patient was tachycardic up to 102 tach ypneic up to 30, and, arrived in respiratory distress with respiratory acidosis of pH 7.25 and elevated pCO2 of 63. He was placed on BiPAP for two hours to good effect and repeat blood gas improved to pH 7.35 with pCO2 of 47. No leukocytosis. Stable H&H. No significant electrolyte abnormalities. Renal and hepatic function baseline. Lactic acid WNL. Troponin negative. Respiratory panel negative. CXR unremarkable. Patient was treated with supplemental oxygen, IV steroids, nebs, magnesium and fentanyl. He was discharged on doxycyline and prednisone taper. He completed his abx and has a few days left of prednisone. He reports overall improvements however still suboptimal control with current regimen and is interested in restarting Xolair. Of note, this was the 5th admission since April due to respiratory distress. [facility] Medical History (Updated 10/03/23 @ 13:10 by Mariela Nelson NP) Acute on chronic respiratory failure with hypoxia and hypercapnia Inhales drugs Heroin use Allergic asthma with status asthmaticus Moderate persistent asthma with exacerbation Opiate abuse, episodic Left against medical advice Lung problems from crack cocaine Chronic lung disease Asthma Pulmonary emboli Family History Other Family history non-contributory Social History Household Members: Significant Other Caregiver staying overnight: No Housing: House Do you presently have visiting nurse or other home services: Yes Unable to assess alcohol history related to: Unable to respond Alcohol intake: former Patient Tobacco Use Status: Former Tobacco user Tobacco use type: Cigarette Cigarettes Per Day: 1 e-Cigarette/Vaping Use: Never Used Second Hand Smoke Exposure: No Substance Use Type: Crack/Cocaine and Heroin service: No Current occupational status: unemployed Cognitive needs: No Hearing needs: No Vision needs: No Review of Systems Const Denies chills, Denies excessive sweating, Denies fever(s), Denies headache(s) and Denies night sweats Eyes Denies dry eyes, Denies irritation and Denies itchy eyes ENT Reports Normal hearing present and Denies headache(s) Card Denies chest pain, Denies chest pain at rest, Denies chest pain with activity, Denies claudication, Denies leg edema, Denies orthopnea and Denies paroxysmal nocturnal dyspnea Resp Denies chest congestion, Denies excessive phlegm production, Denies pain on inspiration, Denies pain with cough and Denies stridor Musc Denies myalgias Neuro Reports Normal hearing present and Denies headache(s) Endo Denies excessive sweating [place]/Lymph Denies lymphadenopathy Aller/Immun Denies itchy eyes and Denies seasonal rhinorrhea Physical Exam Vital Signs: Last Vital Signs Pulse 104 H 10/01/23 11:27 BP 98/52 L 10/01/23 11:27 Pulse Ox 96 10/01/23 11:27 Oxygen Delivery Method Room Air 10/01/23 11:27 BMI result Body Mass Index 17.4 Const General: cooperative, healthy appearing, comfortable, no acute distress and alert Orientation/consciousness: patient oriented x3 Limitations: no limitations HEENT Head: Yes normal to inspection, Yes normocephalic and Yes atraumatic Ears: hearing grossly normal bilaterally and external ears normal Eyes General: appearance normal, both eyes and all related structures Eyelids: Yes eyelids normal Sclerae: sclerae normal EOM: EOMs intact bilaterally Neck Neck: Yes normal visual inspection and Yes no lymphadenopathy Lymphatic: no lymphadenopathy noted Chest Chest palpation & inspection: normal inspection of the chest Resp Effort & Inspection: normal respiratory effort, able to speak in complete sentences, no audible wheezes, no cough, no stridor, not tachypneic, no tripod positioning and no use of accessory muscles Auscultation: diminished lung sounds Cardio Jugular venous distension: no JVD Rate: regular rate Rhythm: regular rhythm Skin Other: warm, dry General skin exam: no rashes or lesions noted Neuro General: patient oriented x3 Cranial nerves: Yes Normal hearing present Cognition (Neuro): normal cognition Gait exam (Neuro): Normal gait present Extrem General: Yes normal to inspection, Yes capillary refill normal, Yes no clubbing, cyanosis or edema and Yes no pedal edema Psych Appearance: grossly normal and well kempt Speech and movement: Normal speech and movement present and Clear speech present Affect: normal affect Attitude: cooperative Thought process: Normal thought process present Thought content: Normal thought content present Insight: Good insight present (Psych) Judgement: Good judgement present (Psych) Results Reviewed Results Reviewed: [address] [address] XRay Report Signed Patient: Shiraz Cruz MR#: [id number] : 1975 Acct:[id number] Age/Sex: 48 / M ADM Date: 09/14/23 Loc: HO.ED Attending Dr: Ordering Physician: Lacey Crowley Date of Service: 09/14/23 Procedure(s): XR chest 1V Accession Number(s): [id number] cc: Lacey Crowley; Kishor Barrett LEAD DIE MOLDER-BC~ EXAMINATION: XR CHEST CLINICAL INFORMATION: Shortness of breath COMPARISON: Prior chest July 2023 TECHNIQUE: Frontal view of the chest was obtained. FINDINGS: No significant abnormality is noted involving the heart, lungs, mediastinum, bony thorax or soft tissues. XR/XR chest 1V IMPRESSION: Unremarkable examination. Dictated By: Greg Velasquez MD Signed By: <Electronically signed by Greg Velasquez MD in OV> 09/14/23957 DD/ 1 TD/TT: Associate Loan Officer: DEMETRIS Assessment & Plan Assessment & Plan (1) Asthma: Code(s): J45.909 - Unspecified asthma, uncomplicated Category: Medical (2) Environmental allergies: Code(s): Z91.09 - Other allergy status, other than to drugs and biological substances Category: Medical Plan: Expect to improve with restarting Xolair. (3) History of acute respiratory failure: Code(s): Z87.09 - Personal history of other diseases of the respiratory system Category: Medical (4) Opioid use disorder: Code(s): F11.90 - Opioid use, unspecified, uncomplicated Category: Medical Plan Patient presents for hospital discharge follow-up for recent admission to a gym see for acute on chronic respiratory failure with hypoxia and hypercapnia. He feels symptoms are significantly improved since admission however still with ojeda boptimal control on current regimen. He is interested in restarting Xolair will discuss with Dr. Borjas , as he is his primary pulmonary provider. Discussed with patient importance of discontinuing use of illicit substances as this seems to be a significant contributing factor. On exam patient with diminished lung sounds but no wheezing appreciated. Currently is on prednisone prescribed at discharge on 09/16. Patient aware of symptoms began to worsen after completing course of prednisone to call our office and experiences respiratory distress seek emergent care. All questions were answered and patient is in agreement of plan. Will follow-up for his regularly scheduled appointment with Dr. Borjas the, or sooner if needed. Medications: Changed From [id number] 200-62.5-25 mcg (Trelegy Ellipta) 1 inh inhalation DAILY 30 days 1 ea 6RF To [id number]-tarrzvae 200-62.5-25 mcg (Trelegy Ellipta) 1 inh inhalation DAILY 90 days 90 ea 1RF Coding Level of Care Code Est Pt Level 4 (81265) Diagnoses Asthma J45.909 Environmental allergies Z91.09 History of acute respiratory failure Z87.09 Opioid use disorder F11.90
[2023-10-01 11:27] VITALS: BP 98/52; PULSE 104; O2SAT 96; BMI 17.4
== END 2023-10-01 11:52 | disposition home or self-care (01) ==
PROVIDERS: PCP Nurse Practitioner Family; Visit Provider Nurse Practitioner Family
DX: J45.909 Unspecified asthma, uncomplicated (principal); Z87.09 Personal history of other diseases of the respiratory system; F11.90 Opioid use, unspecified, uncomplicated
CPT/HCPCS: 99214

== ENCOUNTER → 2023-10-01 11:23 | Outpatient (BNVA) | payer OTHER, SELFPAY | PROVIDERS: PCP Nurse Practitioner Family; Visit Provider Nurse Practitioner Family | DX: J45.909 Unspecified asthma, uncomplicated (principal); F11.90 Opioid use, unspecified, uncomplicated; Z91.09 Other allergy status, other than to drugs and biological substances; Z87.09 Personal history of other diseases of the respiratory system | CPT/HCPCS: 99212 ==

== ENCOUNTER 2023-12-26 11:21 | Outpatient (AMB) | payer OTHER, SELFPAY ==
[2023-12-26 11:28] VITALS: BP 108/62; PULSE 101; O2SAT 93; BMI 17.5
--- NOTE | 2023-12-26 11:28 | MHC.OFFVIS ---
Vital Signs 12/26/23 11:28 Height 5 ft 11 in Weight 125 lb 10.616 oz BMI 17.5 BP 108/62 Blood Pressure Location Rt brachial Position Sitting Pulse 101 H Pulse Source Doppler Pulse Oximetry (%) 93 Oxygen Delivery Method Room Air Intake Visit Reasons: Asthma Allergies walnut Allergy (Unknown, Verified 10/01/23 11:30) SWELLING buprenorphine [From Suboxone] Allergy (Verified 10/01/23 11:30) swelling in his hands and rash naloxone [From Suboxone] Allergy (Verified 10/01/23 11:30) swelling in his hands and rash NSAIDS/ASA Allergy (Unknown, Uncoded 10/01/23 11:30) unknown walnuts Allergy (Unknown, Uncoded 10/01/23 11:30) anaphylaxis HPI HPI Asthma: Details: 48-year-old gentleman with underlying history of asthma, PE? now on Eliquis, cocaine induced lung injury, severe persistent allergic asthma, and environmental allergies.? His symptoms were previously controlled on Xolair, however patient recently was not able to get his Xolair injections. He continues on Breo, Incruse, Singulair, and albuterol MDI/nebs with suboptimal control of his symptoms. Today he is complaining of a bronchitic exacerbation. [facility] Medical History (Updated 12/26/23 @ 11:49 by Riley Borjas MD) Acute on chronic respiratory failure with hypoxia and hypercapnia Inhales drugs Heroin use Allergic asthma with status asthmaticus Moderate persistent asthma with exacerbation Opiate abuse, episodic Left against medical advice Lung problems from crack cocaine Chronic lung disease Asthma Pulmonary emboli Family History Other Family history non-contributory Social History Household Members: Significant Other Caregiver staying overnight: No Housing: House Do you presently have visiting nurse or other home services: Yes Unable to assess alcohol history related to: Unable to respond Alcohol intake: former Patient Tobacco Use Status: Former Tobacco user Tobacco use type: Cigarette Cigarettes Per Day: 1 e-Cigarette/Vaping Use: Never Used Second Hand Smoke Exposure: No Substance Use Type: Crack/Cocaine and Heroin service: No Current occupational status: unemployed Cognitive needs: No Hearing needs: No Vision needs: No Review of Systems Const Denies daytime sleepiness, Denies excessive sweating, Denies fatigue, Denies fever(s), Denies lethargy, Denies malaise, Denies night sweats, Denies snoring and Denies weight loss Eyes Denies blurry vision and Denies itchy eyes ENT Denies nasal congestion, Denies post nasal drip, Denies sinus pain, Denies sinus pressure and Denies other ( Thrush) Card Denies chest pain, Denies pedal edema, Denies dyspnea, Denies orthopnea and Denies paroxysmal nocturnal dyspnea Resp Reports cough, Denies hemoptysis, Reports excessive phlegm production, Denies dyspnea, Denies snoring and Denies wheezing GI Denies abdominal pain and Denies heartburn Musc Denies myalgias, Denies arthralgias and Denies joint swelling Skin/Breast Denies rash Neuro Denies memory loss and Denies seizure-like activity Psych Denies abnormal sleep pattern, Denies anxiety and Denies memory loss Endo Denies excessive sweating, Denies fatigue and Denies heat intolerance [place]/Lymph Denies easy bruising Aller/Immun Denies itchy eyes, Denies seasonal rhinorrhea and Denies wheezing Physical Exam Vital Signs: Last Vital Signs Pulse 101 H 12/26/23 11:28 BP 108/62 12/26/23 11:28 Pulse Ox 93 12/26/23 11:28 Oxygen Delivery Method Room Air 12/26/23 11:28 BMI result Body Mass Index 17.5 Const General: no acute distress and alert Nutritional Appearance: not obese Orientation/consciousness: Other orientation findings ( oriented) HEENT Head: Yes atraumatic Eyes General: appearance normal, both eyes and all related structures Sclerae: sclerae normal EOM: EOMs intact bilaterally Neck Neck: Yes supple Lymphatic: no lymphadenopathy noted Resp Effort & Inspection: normal respiratory effort and no use of accessory muscles Auscultation: rales (Bilateral) Cardio Rate: regular rate Rhythm: regular rhythm Heart sounds: no gallops, no murmurs and no rubs Skin General skin exam: other ( warm) Extrem General: No clubbing, No cyanosis and No edema Assessment & Plan Assessment & Plan (1) Asthma: Code(s): J45.909 - Unspecified asthma, uncomplicated Category: Medical Plan: Suboptimal control off Xolair. Restart Xolair. Continue baseline regimen of Breo, Incruse, Singulair, and albuterol MDI. Will treat bronchitic exacerbation with a course of Levaquin. Also, patient has ran out of his Eliquis and is not able to get a refill from his primary care, will refill for the next 30 days. (2) Environmental allergies: Code(s): Z91.09 - Other allergy status, other than to drugs and biological substances Category: Medical Plan: Expect to improve after restarting Xolair. Medications: New levofloxacin 750 mg PO DAILY 7 tabs 0RF Changed From apixaban (Eliquis) 5 mg PO BID 120 tabs 2RF I26.99 - Other pulmonary embolism without acute cor pulmonale To apixaban (Eliquis) 5 mg PO BID 60 tabs 0RF 30 days I26.99 - Other pulmonary embolism without acute cor pulmonale Coding Level of Care Code Est Pt Level 4 (85387) Diagnoses Asthma J45.909 Environmental allergies Z91.09
== END 2023-12-26 11:48 | disposition home or self-care (01) ==
PROVIDERS: PCP Nurse Practitioner Family; Visit Provider Internal Medicine Pulmonary Disease
DX: J45.909 Unspecified asthma, uncomplicated (principal); Z91.09 Other allergy status, other than to drugs and biological substances
CPT/HCPCS: 99214

== ENCOUNTER → 2023-12-26 11:21 | Outpatient (BNVA) | payer OTHER, SELFPAY | PROVIDERS: PCP Nurse Practitioner Family; Visit Provider Internal Medicine Pulmonary Disease | DX: J45.909 Unspecified asthma, uncomplicated (principal); Z91.09 Other allergy status, other than to drugs and biological substances | CPT/HCPCS: 99212 ==

== ENCOUNTER 2024-02-16 15:13 | Emergency (ER) | payer MEDICAID, SELFPAY ==
--- NOTE | ~2024-02-16 | XR_ITS ---
EXAMINATION: XR CHEST CLINICAL INFORMATION: Shortness of breath and COPD COMPARISON: Chest radiograph September 14, 2023 TECHNIQUE: Frontal view of the chest was obtained. FINDINGS: Hyperexpanded lung fountain. No focal consolidation. No thorax. The heart and mediastinal borders are normal. No acute osseous abnormality. XR/XR chest 1V IMPRESSION: Unremarkable examination. Electronically signed by: Colin Renteria MD 02/16/2024 05:55 PM EST
[2024-02-16 15:23] VITALS: BP 122/71; BP 123/74; PULSE 74; PULSE 86; RESP 18; TEMP 36.7; O2SAT 94; O2SAT 96; BMI 17.0
[2024-02-16 16:15] VITALS: BP 113/70; PULSE 69; RESP 18; TEMP 36.6; O2SAT 94
--- NOTE | 2024-02-16 17:09 | ECG_ITS ---
Test Reason : SOB Blood Pressure : / mmHG Vent. Rate : 063 BPM Atrial Rate : 063 BPM P-R Int : 142 ms QRS Dur : 082 ms QT Int : 414 ms P-R-T Axes : 083 065 071 degrees QTc Int : 423 ms Normal sinus rhythm Normal ECG When compared with ECG of 14-SEP-2023 08:17, Vent. rate has decreased BY 33 BPM Referred By: Mariela Martino Electronically Signed By:GENEVIEVE VANCE MD
--- NOTE | 2024-02-16 17:14 | ED_ITS ---
HPI - SOB/Dyspnea General Chief Complaint: Dyspnea Stated Complaint: sob x 3days. 100%ra Time Seen by Provider: 02/16/24 16:10 Source: patient Mode of arrival: ambulatory Limitations: no limitations History of Present Illness ED Provider: Dr. Mariela Martino HPI Narrative: Patient comes to the emergency room complaining of 1 week of intermittent wheezing, coughing. Patient denies fever chills. Patient not O2 dependent. Patient known to have history of COPD. Patient states that his inhalers are not working as they usually do. Patient denies any chest pain. Related Data Home Medications ?Medication ?Instructions ?Recorded ?Confirmed sennosides 8.6 mg-docusate sodium 1 tab-cap PO BID PRN Constipation 08/29/22 09/14/23 50 mg tablet (Senexon-S) methadone 10 mg/mL oral 48 mg PO DAILY 04/18/23 09/14/23 concentrate (Methadose) Previous Rx's ?Medication ?Instructions ?Recorded nebulizers #1 ea 11/26/20 fluticasone propionate 50 2 spray intranasal DAILY PRN 08/11/23 mcg/actuation nasal Allergy Symptoms #16 grams spray,suspension (Allergy Relief (fluticasone)) doxycycline monohydrate 100 mg 100 mg PO Q12H #6 caps 09/17/23 capsule prednisone 10 mg tablet See Rx Instructions .Route 09/17/23 .COMPLEX #42 tabs umeclidinium 62.5 mcg/actuation 1 inh inhalation DAILY #30 ea 10/19/23 blister powder for inhalation (Incruse Ellipta) albuterol sulfate 2.5 mg/3 mL 2.5 mg (3 mL) inhalation Q4-6H PRN 11/15/23 (0.083 %) solution for nebulization shortness of breath or wheezing #180 mL Ventolin HFA 90 mcg/actuation 2 puff PO Q4-6H PRN for wheezing 11/29/23 aerosol inhaler (albuterol sulfate) #18 ea apixaban 5 mg tablet (Eliquis) 5 mg PO BID 30 days #60 tabs 12/26/23 levofloxacin 750 mg tablet 750 mg PO DAILY #7 tabs 12/26/23 fluticasone furoate 200 1 inh inhalation DAILY #60 ea 02/11/24 mcg-vilanterol 25 mcg/dose inhalation powder (Breo Ellipta) albuterol sulfate 90 mcg/actuation 2 puff inhalation Q4-6H PRN 02/16/24 aerosol inhaler shortness of breath or wheezing #8.5 grams prednisone 50 mg tablet 50 mg PO DAILY #4 tabs 02/16/24 Allergies Allergy/AdvReac Type Severity Reaction Status Date / Time walnut Allergy Unknown SWELLING Verified 02/16/24 15:26 buprenorphine [From Suboxone] Allergy swelling Verified 02/16/24 15:26 in his hands and rash naloxone [From Suboxone] Allergy swelling Verified 02/16/24 15:26 in his hands and rash NSAIDS/ASA Allergy Unknown unknown Uncoded 10/01/23 11:30 walnuts Allergy Unknown anaphylaxis Uncoded 10/01/23 11:30 Review of Systems 2 Review of Systems: Constitutional : No Weight loss, No Fever, No Chills, No Night Sweats, No Fatigue, No Malaise ENT/Mouth : No Hearing loss, No Ear Pain, No Nasal Congestion, No Sinus Pain, No Hoarseness, No sore throat, No Rhinorrhea, No Swallowing Difficulty Eyes: No Eye Pain, No Swelling, No Redness, No Foreign Body, No Discharge, No Vision Changes Cardiovascular : No Chest Pain, no palpitations, no lower extremity edema Respiratory : Complaining of cough, mildly productive, more wheezing than usual, shortness of breath Gastrointestinal : No Nausea, No Vomiting, No Diarrhea, No Constipation, No abdominal Pain, No Hematochezia, No Melena Genitourinary : no irregular bleeding, No Dysuria, No Urinary Frequency, No Hematuria, No Urinary Incontinence, No Urgency, No Flank Pain, No Urinary Flow Changes, No Hesitancy Musculoskeletal : No joint pain, No Myalgias, No Joint Swelling Skin : No Skin Lesions, No rash Neuro : No Weakness, No Numbness, No Paresthesias, No Loss of Consciousness, No Dizziness, No Headache Psych : No Anxiety/Panic, No Depression, No SI/HI/AH/VH, No Social Issues, Heme/Lymph: No Bruising, No Bleeding,No Lymphadenopathy Endocrine : No Polyuria, No Polydipsia, No Temperature Intolerance PMFSH Past Medical History Medical History Acute on chronic respiratory failure with hypoxia and hypercapnia Inhales drugs Heroin use Allergic asthma with status asthmaticus Moderate persistent asthma with exacerbation Opiate abuse, episodic Left against medical advice Lung problems from crack cocaine Chronic lung disease Asthma Pulmonary emboli Family History Family History Other Family history non-contributory Social History Social History Household Members: Significant Other Housing: House Do you presently have visiting nurse or other home services: Yes Unable to assess alcohol history related to: Unable to respond Alcohol intake: former Patient Tobacco Use Status: Former Tobacco user Tobacco use type: Cigarette Cigarettes Per Day: 1 Smoked in Last 30 Days: No e-Cigarette/Vaping Use: Never Used Second Hand Smoke Exposure: No Use of substances other than those prescribed or required for medical reasons: No Substance Use Type: Crack/Cocaine and Heroin Advance Directives: Yes Advance Directives Information Provided: No Advance Directives on File: No service: No Current occupational status: unemployed Cognitive needs: No Hearing needs: No Vision needs: No Physical Exam 2 Vital Signs: Vital Signs: Last Vital Signs Temp 98.0 F 02/16/24 19:55 Pulse 59 02/16/24 19:55 Resp 18 02/16/24 19:55 BP 114/69 02/16/24 19:55 Pulse Ox 96 02/16/24 19:55 O2 Del Method Room Air 02/16/24 19:55 BMI result Body Mass Index 17.0 Const: Other: Appearance: Alert. Oriented X3. No acute distress. Eyes: Pupils equal, round and reactive to light. ENT: Pharynx normal. Neck: Normal inspection. Neck supple. No lymph nodes noted. No crepitus CVS: Normal heart rate and rhythm. Pulses normal. Normal S1 and S2 Respiratory: No respiratory distress. Bilateral wheezing, no rales or crackles, oxygen saturation 96 % on room air Abdomen: Soft and nontender. No rigidity. No distention. Skin: Skin warm and dry. Normal skin color. Normal skin turgor. Extremities: No lower extremity edema. No Lacerations. No Rash Neuro: Oriented X 3. No motor deficit. No sensory deficit. Moving all extremities. No slurred speech. CN 2 through 12 grossly intact Psych: calm, cooperative, normal affect Medications Administered Discontinued Medications Generic Name Dose Route Start Last Admin Trade Name Freq PRN Reason Stop Dose Admin Albuterol Sulfate 2.5 mg/ 0 mg 02/16/24 17:25 02/16/24 17:31 Albuterol/Ipratropium 3 ml INHALE 02/16/24 17:26 5 dose ONCE ONE Administration Magnesium Sulfate 2 gm in 50 mls @ 25 mls/hr 02/16/24 17:10 02/16/24 17:24 Magnesium Sulfate/H2o IV 02/16/24 19:09 25 mls/hr ONCE ONE Administration Methylprednisolone Sodium Succinate 125 mg 02/16/24 17:10 02/16/24 17:24 Methylprednisolone Sod Succ 125 Mg/2 Ml Vial IVPUSH 02/16/24 17:11 125 mg ONCE ONE Administration Medical Decision Making Medical Decision Making [facility] Narrative: My interpretation of labs, at baseline hematology, normal coagulation, blood gases show normal pH, pCO2 48 which is baseline for the patient, bicarb 29, chronic. Compensated. Chemistry show no acute abnormalities, BNP negative, serology negative My interpretation of chest x-ray, no obvious signs of pneumonia. Radiology report: Unremarkable examination -patient was ambulated in the ED, oxygen saturation 96% and above without wheezing, shortness of breath or drop in oxygen saturation Differential Diagnosis Differential Diagnoses: The differential diagnosis associated with the presentation includes (Asthma, chronic lung disease exacerbation, pneumonia, viral URI) Admission/Observation Consideration of admission/observation: Escalation of care including admission/observation considered (Given patient's comorbidities, initial presentation and symptoms, admission was considered) Lab Data [facility] Lab Attestation statement: I reviewed the patient's lab results. 02/16/24 17:42 02/16/24 17:41 Labs: Lab Results 02/16/24 02/16/24 02/16/24 Range/Units 17:41 17:42 17:44 WBC 6.4 (4.8-10.8) X10*3/uL RBC 3.77 L (4.60-5.80) X10*6/uL Hgb 12.0 L (14.0-18.0) g/dl Hct 36.4 L (42.0-52.0) % MCV 96.6 (80.0-98.0) fL MCH 31.8 (27.0-33.0) pg MCHC 33.0 (31.0-36.0) g/dl RDW 13.3 (11.0-16.0) % Plt Count 196 (160-400) X10*3/uL MPV 10.2 (9.4-12.4) fL Immature Gran % (Auto) 0.2 (0.0-0.4) % Neut % (Auto) 40.6 L (45-73) % Lymph % (Auto) 41.5 H (20-40) % [place] % (Auto) 6.2 (2-11) % Eos % (Auto) 10.9 H (0-4) % Baso % (Auto) 0.6 (0-2) % Lymph # (Auto) 2.7 (1.2-4.9) X10*3/uL [place] # (Auto) 0.4 (0.1-1.2) X10*3/uL Eos # (Auto) 0.7 H (0.0-0.4) X10*3/uL Baso # (Auto) 0.0 (0.0-0.2) X10*3/uL Abs Immat Gran (auto) 0.01 (0.00-0.03) X10*3/uL Absolute Neuts (auto) 2.6 (2.0-8.3) x10*3/uL Absolute Nucleated RBC 0.000 (0.0-0.012) X10*3/uL Nucleated RBC % (auto) 0.0 (0.0-0.2) /100WBC PT 11.5 (10.9-12.4) SEC INR 1.0 (0.9-1.1) VBG pH (7.32-7.43) VBG pCO2 mmHg VBG pO2 mmHg VBG HCO3 (22-26) mmol/L VBG O2 Saturation % VBG Base Excess mmol/L Sodium 141 (135-145) mmol/L Potassium 3.9 (3.3-5.1) mmol/L Chloride 108 (96-108) mmol/L Carbon Dioxide 25 (22-29) mmol/L Anion Gap 12 (12-20) BUN 16 (9-16) mg/dL Creatinine 0.84 (0.5-1.4) mg/dL Estim Creat Clear Calc 83.6 Estimated GFR > 60 Random Glucose 114 (60-115) mg/dL Calcium 8.6 D (8.4-10.2) mg/dL Total Bilirubin 0.2 (0.0-1.0) mg/dL Direct Bilirubin < 0.2 (0.0-0.5) mg/dL AST 20 (5-37) U/L ALT 17 (0-40) U/L Alkaline Phosphatase 49 (39-117) U/L B-Natriuretic Peptide 19 (<100) pg/mL Total Protein 5.8 L (6.5-8.0) g/dL Albumin 3.6 (3.5-5.0) g/dL COVID-19 (ELI) Negative (Negative) COVID-19 Clin Com See Note Influenza Type A (RYAN) Negative (Negative) Influenza Type B (RYAN) Negative (Negative) Influenza A & B Note See Note 02/16/24 Range/Units 17:48 WBC (4.8-10.8) X10*3/uL RBC (4.60-5.80) X10*6/uL Hgb (14.0-18.0) g/dl Hct (42.0-52.0) % MCV (80.0-98.0) fL MCH (27.0-33.0) pg MCHC (31.0-36.0) g/dl RDW (11.0-16.0) % Plt Count (160-400) X10*3/uL MPV (9.4-12.4) fL Immature Gran % (Auto) (0.0-0.4) % Neut % (Auto) (45-73) % Lymph % (Auto) (20-40) % [place] % (Auto) (2-11) % Eos % (Auto) (0-4) % Baso % (Auto) (0-2) % Lymph # (Auto) (1.2-4.9) X10*3/uL [place] # (Auto) (0.1-1.2) X10*3/uL Eos # (Auto) (0.0-0.4) X10*3/uL Baso # (Auto) (0.0-0.2) X10*3/uL Abs Immat Gran (auto) (0.00-0.03) X10*3/uL Absolute Neuts (auto) (2.0-8.3) x10*3/uL Absolute Nucleated RBC (0.0-0.012) X10*3/uL Nucleated RBC % (auto) (0.0-0.2) /100WBC PT (10.9-12.4) SEC INR (0.9-1.1) VBG pH 7.39 (7.32-7.43) VBG pCO2 48 mmHg VBG pO2 115 mmHg VBG HCO3 29 H (22-26) mmol/L VBG O2 Saturation 99.0 % VBG Base Excess 3.7 mmol/L Sodium (135-145) mmol/L Potassium (3.3-5.1) mmol/L Chloride (96-108) mmol/L Carbon Dioxide (22-29) mmol/L Anion Gap (12-20) BUN (9-16) mg/dL Creatinine (0.5-1.4) mg/dL Estim Creat Clear Calc Estimated GFR Random Glucose (60-115) mg/dL Calcium (8.4-10.2) mg/dL Total Bilirubin (0.0-1.0) mg/dL Direct Bilirubin (0.0-0.5) mg/dL AST (5-37) U/L ALT (0-40) U/L Alkaline Phosphatase (39-117) U/L B-Natriuretic Peptide (<100) pg/mL Total Protein (6.5-8.0) g/dL Albumin (3.5-5.0) g/dL COVID-19 (ELI) (Negative) COVID-19 Clin Com Influenza Type A (RYAN) (Negative) Influenza Type B (RYAN) (Negative) Influenza A & B Note Independent Interpretation I performed an independent interpretation of an: Plain X-Ray Radiology Impression Discussion of test interpretation with radiology: I have reviewed the radiologist's reading. Radiologist Impression: Hyperexpanded lung fountain. No focal consolidation. No thorax. The heart and mediastinal borders are normal. No acute osseous abnormality. Critical Care Time Critical Care Time Critical Care Time: Yes Total Critical Care Time: 45 Attestation: I have personally provided critical care time. Time includes review of lab data, radiology results, discussion with consultants, and monitoring for potential decompensation. Intervention performed as documented. Discharge Plan Discharge Clinical Impression: Chronic lung disease Patient Disposition: Home, Self-Care Instructions: Asthma (ED), COPD (Chronic Obstructive Pulmonary Disease) (ED) Additional Instructions: Please follow-up with your primary care physician tomorrow. If you have any worsening or new symptoms, please return to the emergency room or call 911 Prescriptions: New albuterol sulfate 90 mcg/actuation HFA aerosol inhaler 2 puff inhalation Q4-6H PRN (Reason: shortness of breath or wheezing) Qty: 8.5 0RF prednisone 50 mg tablet 50 mg PO DAILY Qty: 4 0RF No Action (DME) nebulizers Misc See Rx Instructions .Route Qty: 1 0RF Rx Instructions: Use every 4 hours as needed for SOB, wheezing fluticasone propionate [Allergy Relief (fluticasone)] 50 mcg/actuation spray,suspension 2 spray intranasal DAILY PRN (Reason: Allergy Symptoms) Qty: 16 0RF Rx Instructions: administer into each nostril Future refills considered AFTER blood work completed Incruse Ellipta 62.5 mcg/actuation blister with device 1 inh inhalation DAILY Qty: 30 3RF albuterol sulfate 2.5 mg /3 mL (0.083 %) solution for nebulization 2.5 mg inhalation Q4-6H PRN (Reason: shortness of breath or wheezing) Qty: 180 3RF albuterol sulfate [Ventolin HFA] 90 mcg/actuation HFA aerosol inhaler 2 puff PO Q4-6H PRN (Reason: for wheezing) Qty: 18 2RF fluticasone furoate-vilanterol [Breo Ellipta] 200-25 mcg/dose blister with device 1 inh inhalation DAILY Qty: 60 0RF methadone [Methadose] 10 mg/mL Concentrate 48 mg PO DAILY Rx Instructions: verified dose with [facility] doxycycline monohydrate 100 mg Capsule 100 mg PO Q12H Qty: 6 0RF prednisone 10 mg tablet See Rx Instructions .ROUTE .COMPLEX Qty: 42 0RF Rx Instructions: 40 mg daily x 4 days, then 30 mg daily x 4 days, then 20 mg daily x 4 days, then 10 mg daily x 4 days, then 5 mg daily x 4 days sennosides-docusate sodium [Senexon-S] 8.6-50 mg tablet 1 tab-cap PO BID PRN (Reason: Constipation) Eliquis 5 mg tablet 5 mg PO BID 30 Days Qty: 60 0RF levofloxacin 750 mg tablet 750 mg PO DAILY Qty: 7 0RF Stand Alone Forms: Work/School Release Print Language: [place]
[2024-02-16] MEDS: Magnesium Sulfate/H2O 2 GM/50 ML PIGGYBACK IV (17:24)
[2024-02-16] MEDS: methylPREDNISolone Sod Succ 125 MG/2 ML VIAL IVPUSH (17:24)
[2024-02-16 17:25] VITALS: PULSE 62; RESP 23; O2SAT 93
[2024-02-16] MEDS: Albuterol Sulfate 2.5 MG, Albuterol/Iprat 2.5/0.5MG 3 ML 3 ML INHALE (17:31)
[2024-02-16 17:49] LABS: MANUAL DIFF FLAG NO
[2024-02-16 17:52] LABS: VBG Base Excess 3.7 mmol/L; VBG HCO3 29 mmol/L (22-26); VBG pCO2 48 mmHg; VBG pH 7.39 (7.32-7.43); VBG pO2 115 mmHg
[2024-02-16 17:57] LABS: Prothrombin Time 11.5 SEC (10.9-12.4)
[2024-02-16 17:58] LABS: Venous Blood Gas Refer to POC result
[2024-02-16 18:08] LABS: COVID-19 Test Negative (Negative); IDNOW Serial# 152EDE1D; IDNOW Serial# 9DB6401D; Influenza A Negative (Negative); Influenza B2 Negative (Negative)
[2024-02-16 18:08] LABS: Alanine Aminotransferase 17 U/L (0-40); Albumin Level 3.6 g/dL (3.5-5.0); Alkaline Phosphatase 49 U/L (39-117); Anion Gap 12 (12-20); Aspartate Amino Transferase 20 U/L (5-37); Bilirubin Direct < 0.2 mg/dL (0.0-0.5); Bilirubin Total 0.2 mg/dL (0.0-1.0); Blood Urea Nitrogen 16 mg/dL (9-16); Calcium 8.6 mg/dL (8.4-10.2); Carbon Dioxide 25 mmol/L (22-29); Chloride 108 mmol/L (96-108); Creatinine Clr Calc Pharmacy 83.6; Estimated Glomerular Filt Rate > 60; Glucose Random 114 mg/dL (60-115); Potassium 3.9 mmol/L (3.3-5.1); Sodium 141 mmol/L (135-145); Total Protein 5.8 g/dL (6.5-8.0)
[2024-02-16 18:13] LABS: B Type Natriuretic Peptide 19 pg/mL (<100)
[2024-02-16 18:14] LABS: Basophils Percent Auto 0.6 % (0-2); Eosinophils Absolute Auto 0.7 X10*3/uL (0.0-0.4); Eosinophils Percent Auto 10.9 % (0-4); Hematocrit 36.4 % (42.0-52.0); Imm Gran Abs Auto 0.01 X10*3/uL (0.00-0.03); Imm Gran Pct Auto 0.2 % (0.0-0.4); Lymphocytes Absolute Auto 2.7 X10*3/uL (1.2-4.9); Lymphocytes Percent Auto 41.5 % (20-40); Mean Corpuscular Hemoglobin 31.8 pg (27.0-33.0); Mean Corpuscular Volume 96.6 fL (80.0-98.0); Mean Platelet Volume 10.2 fL (9.4-12.4); Monocytes Absolute Auto 0.4 X10*3/uL (0.1-1.2); Monocytes Percent Auto 6.2 % (2-11); Neutrophils Absolute Auto 2.6 x10*3/uL (2.0-8.3); Neutrophils Percent Auto 40.6 % (45-73); Platelet Count 196 X10*3/uL (160-400); Red Blood Count 3.77 X10*6/uL (4.60-5.80); Red Cell Distribution Width 13.3 % (11.0-16.0); White Blood Count 6.4 X10*3/uL (4.8-10.8)
[2024-02-16 18:24] VITALS: BP 119/67; PULSE 69; RESP 18; TEMP 36.7; O2SAT 93
[2024-02-16 19:55] VITALS: BP 114/69; PULSE 59; RESP 18; TEMP 36.7; O2SAT 96
--- NOTE | 2024-02-16 19:55 | PC.NURSE ---
Reports feeling better after receiving breathing treatments . Tolerated ambulation trial, 95-96% on room air. Dr. Martino notified. Drank francisco steffanie and ate chocolate ice cream. Pleasant/calm/cooperative.
[2024-02-16 20:46] VITALS: BP 114/69; PULSE 59; RESP 18; TEMP 36.7; O2SAT 96
== END 2024-02-16 20:46 | disposition home or self-care (01) ==
PROVIDERS: Emergency Provider Emergency Medicine; PCP Nurse Practitioner Family
DX: J44.9 Chronic obstructive pulmonary disease, unspecified (principal); Z03.818 Encounter for observation for suspected exposure to other biological agents ruled out; R06.02 Shortness of breath; J96.21 Acute and chronic respiratory failure with hypoxia; F19.10 Other psychoactive substance abuse, uncomplicated; F11.20 Opioid dependence, uncomplicated; Z87.09 Personal history of other diseases of the respiratory system; Z87.891 Personal history of nicotine dependence; Z79.899 Other long term (current) drug therapy; Z79.01 Long term (current) use of anticoagulants
CPT/HCPCS: 71045; 80048; 80076; 82803; 83880; 85025; 85610; 87502; 87635; 93005; 94640; 96365; 96366; 96375; 99284; 99285; J2919; J3475

== ENCOUNTER → 2024-02-16 17:09 | Outpatient (BNV) | payer OTHER, SELFPAY | PROVIDERS: Emergency Provider Emergency Medicine; PCP Nurse Practitioner Family; Visit Provider Internal Medicine Cardiovascular Disease | DX: R06.02 Shortness of breath (principal) | CPT/HCPCS: 93010 ==

== ENCOUNTER 2024-04-01 11:04 | Outpatient (AMB) | payer MEDICAID, SELFPAY ==
[2024-04-01 11:07] VITALS: BP 130/72; PULSE 97; O2SAT 97; BMI 20.3
--- NOTE | 2024-04-01 11:07 | MHC.OFFVIS ---
Vital Signs 04/01/24 11:07 Height 5 ft 9 in Weight 137 lb 12.623 oz BMI 20.3 BP 130/72 Blood Pressure Location Lt brachial Position Sitting Pulse 97 Pulse Source Doppler Pulse Oximetry (%) 97 Oxygen Delivery Method Room Air Intake Visit Reasons: asthma Allergies walnut Allergy (Unknown, Verified 02/16/24 15:26) SWELLING buprenorphine [From Suboxone] Allergy (Verified 02/16/24 15:26) swelling in his hands and rash naloxone [From Suboxone] Allergy (Verified 02/16/24 15:) swelling in his hands and rash NSAIDS/ASA Allergy (Unknown, Uncoded 10/01/23 11:30) unknown walnuts Allergy (Unknown, Uncoded 10/01/23 11:30) anaphylaxis HPI HPI asthma: Details: 49-year-old gentleman with underlying history of asthma, PE? now on Eliquis, cocaine induced lung injury, severe persistent allergic asthma, PE now on Eliquis, and environmental allergies.? His symptoms were previously controlled on Xolair, however patient recently was not able to get his Xolair injections. He continues on trilogy, Singulair, and albuterol MDI/nebs with suboptimal control of his symptoms. He recently had an exacerbation treated with prednisone taper and now is almost back to his baseline. [facility] Medical History Acute on chronic respiratory failure with hypoxia and hypercapnia Inhales drugs Heroin use Allergic asthma with status asthmaticus Moderate persistent asthma with exacerbation Opiate abuse, episodic Left against medical advice Lung problems from crack cocaine Chronic lung disease Asthma Pulmonary emboli Family History Other Family history non-contributory Social History Household Members: Significant Other Caregiver staying overnight: No Housing: House Do you presently have visiting nurse or other home services: Yes Unable to assess alcohol history related to: Unable to respond Alcohol intake: former Patient Tobacco Use Status: Former Tobacco user Tobacco use type: Cigarette Cigarettes Per Day: 1 e-Cigarette/Vaping Use: Never Used Second Hand Smoke Exposure: No Substance Use Type: Crack/Cocaine and Heroin service: No Current occupational status: unemployed Cognitive needs: No Hearing needs: No Vision needs: No Review of Systems Const Denies daytime sleepiness, Denies excessive sweating, Denies fatigue, Denies fever(s), Denies lethargy, Denies malaise, Denies night sweats, Denies snoring and Denies weight loss Eyes Denies blurry vision and Denies itchy eyes ENT Denies nasal congestion, Denies post nasal drip, Denies sinus pain, Denies sinus pressure and Denies other ( Thrush) Card Denies chest pain, Denies pedal edema, Denies dyspnea, Denies orthopnea and Denies paroxysmal nocturnal dyspnea Resp Denies cough, Denies hemoptysis, Denies excessive phlegm production, Denies dyspnea, Denies snoring and Reports wheezing GI Denies abdominal pain and Denies heartburn Musc Denies myalgias, Denies arthralgias and Denies joint swelling Skin/Breast Denies rash Neuro Denies memory loss and Denies seizure-like activity Psych Denies abnormal sleep pattern, Denies anxiety and Denies memory loss Endo Denies excessive sweating, Denies fatigue and Denies heat intolerance Ch[place]/Lymph Denies easy bruising Aller/Immun Denies itchy eyes, Denies seasonal rhinorrhea and Reports wheezing Physical Exam Vital Signs: Last Vital Signs Pulse 97 04/01/24 11:07 BP 130/72 04/01/24 11:07 Pulse Ox 97 04/01/24 11:07 Oxygen Delivery Method Room Air 04/01/24 11:07 BMI result Body Mass Index 20.3 Const General: no acute distress and alert Nutritional Appearance: not obese Orientation/consciousness: Other orientation findings ( oriented) HEENT Head: Yes atraumatic Eyes General: appearance normal, both eyes and all related structures Sclerae: sclerae normal EOM: EOMs intact bilaterally Neck Neck: Yes supple Lymphatic: no lymphadenopathy noted Resp Effort & Inspection: normal respiratory effort and no use of accessory muscles Auscultation: clear to auscultation bilaterally Cardio Rate: regular rate Rhythm: regular rhythm Heart sounds: no gallops, no murmurs and no rubs Skin General skin exam: other ( warm) Extrem General: No clubbing, No cyanosis and No edema Assessment & Plan Assessment & Plan (1) Asthma: Code(s): J45.909 - Unspecified asthma, uncomplicated Category: Medical Plan: Suboptimally controlled of Xolair. Restart Xolair. Continue Trelegy, Singulair and albuterol MDI. (2) Environmental allergies: Code(s): Z91.09 - Other allergy status, other than to drugs and biological substances Category: Medical Plan: Expect to improve on Xolair. Continue Trelegy. (3) Other pulmonary embolism without acute cor pulmonale: Code(s): I26.99 - Other pulmonary embolism without acute cor pulmonale Category: Medical Plan: Continue anticoagulation with apixaban. Medications: Changed From apixaban (Eliquis) 5 mg PO BID 30 days 60 tabs 6RF I26.99 - Other pulmonary embolism without acute cor pulmonale To apixaban (Eliquis) 5 mg PO BID 180 tabs 4RF 90 days I26.99 - Other pulmonary embolism without acute cor pulmonale Coding Level of Care Code Est Pt Level 4 (53201) Complex EM visit Add On G2211 Diagnoses Asthma J45.909 Environmental allergies Z91.09 Other pulmonary embolism without acute cor pulmonale I26.99
== END 2024-04-01 11:32 | disposition home or self-care (01) ==
PROVIDERS: PCP Nurse Practitioner Family; Visit Provider Internal Medicine Pulmonary Disease
DX: J45.909 Unspecified asthma, uncomplicated (principal); Z91.09 Other allergy status, other than to drugs and biological substances; I26.99 Other pulmonary embolism without acute cor pulmonale
CPT/HCPCS: 99214

== ENCOUNTER → 2024-04-01 11:04 | Outpatient (BNVA) | payer MEDICAID, SELFPAY | PROVIDERS: PCP Nurse Practitioner Family; Visit Provider Internal Medicine Pulmonary Disease | DX: J45.909 Unspecified asthma, uncomplicated (principal); Z91.09 Other allergy status, other than to drugs and biological substances; I26.99 Other pulmonary embolism without acute cor pulmonale | CPT/HCPCS: 99212 ==

== ENCOUNTER 2024-06-22 04:05 | Inpatient (IN) | payer OTHER, SELFPAY ==
[2024-06-22] VITALS (13 sets, daily range): BP systolic 100–143; BP diastolic 54–87; PULSE 84–104; RESP 12–25; TEMP 36.3–37.4; O2SAT 90–99; BMI 17.9
--- NOTE | 2024-06-22 | ECG_ITS ---
Test Reason : ASTHMA Blood Pressure : */* mmHG Vent. Rate : 96 BPM Atrial Rate : 96 BPM P-R Int : 140 ms QRS Dur : 80 ms QT Int : 350 ms P-R-T Axes : 84 57 72 degrees QTcB Int : 442 ms Normal sinus rhythm Normal ECG When compared with ECG of 16-Feb-2024 17:27, Vent. rate has increased by 33 bpm Referred By: Darin Patrick Electronically Signed By: ANA JO
--- NOTE | ~2024-06-22 | XR_ITS ---
CLINICAL HISTORY: dyspnea cough 1 view chest x-ray Comparison: CR/SR - XR CHEST 1V - 02/16/24 17:10 EST Findings: No consolidation or effusion. There is a questionable nodular opacity in the right upper lung field measuring 1.4 cm not seen on prior exams. Normal size heart. No acute fracture. There is hyperaeration. IMPRESSION: There is hyperaeration. Questionable nodular opacity right upper lung field not seen previously. Please obtain PA and lateral views when possible. This document has been electronically signed by: Amandeep Law MD on 06/22/2024 06:23:39
--- NOTE | ~2024-06-22 | CT_ITS ---
EXAMINATION: CT CHEST WITHOUT IV CONTRAST INDICATION: hypoxia COMPARISON: Comparison is made with the prior examination dated 01/06/2022. TECHNIQUE: Helical CT scan of the chest was performed without intravenous contrast. Coronal and sagittal reformatted images were generated and reviewed. This CT exam was performed with one or more of the following dose reduction techniques: automated exposure control, adjustment of the mA and/or kV according to patient size, use of iterative reconstruction technique. DLP: 103 mGy-cm CHEST: THYROID: The thyroid is unremarkable. LUNGS: The lungs are hyperinflated. There is diffuse mild bronchial wall thickening involving all lobes of both lungs. Occasional areas of mucous plugging are noted. Findings are consistent with bronchitis. There is no focal consolidation. No pulmonary nodules are identified. There is linear scarring at the left lung base. MEDIASTINUM: There is no mediastinal lymphadenopathy. DAVID: Evaluation of the hilar regions is limited by lack of intravenous contrast material. CARDIOVASCULATURE: The heart is normal in size. There is no pericardial effusion. The thoracic aorta is normal in caliber. DEGREE OF CORONARY CALCIFICATION: none PLEURA: There is no pleural effusion. No pneumothorax. AXILLA: There is no axillary lymphadenopathy. BONES AND SOFT TISSUES: Unremarkable UPPER ABDOMEN: The visualized portions of the liver, spleen, and adrenals have an unremarkable unenhanced appearance. CT/CT chest wo IV con IMPRESSION: Findings consistent with bronchitis as described. No focal consolidation. Electronically signed by: Virgilio Coronado MD 06/24/2024 03:51 PM EDT
--- NOTE | 2024-06-22 04:10 | ED_ITS ---
HPI - SOB/Dyspnea General Chief Complaint: Dyspnea Stated Complaint: asthma Time Seen by Provider: 06/22/24 04:10 Source: patient Mode of arrival: ambulatory Limitations: no limitations History of Present Illness HPI Narrative: 48-year-old male history of asthma with hypoxic respiratory failure, chronic lung disease, opiate abuse, crack cocaine abuse, pulmonary emboli on Eliquis on tapering dose of prednisone which she just finished yesterday presenting to the emergency department with complaints of severe shortness of breath for last 2- 3 days got worse prior to arrival patient has tried nebulizing treatment at home without much response was given 3 DuoNeb IV magnesium IV Solu-Medrol and IM epinephrine by the EMS prior to arrival Related Data Home Medications ?Medication ?Instructions ?Recorded ?Confirmed sennosides 8.6 mg-docusate sodium 1 tab-cap PO BID PRN Constipation 08/29/22 09/14/23 50 mg tablet (Senexon-S) methadone 10 mg/mL oral 48 mg PO DAILY 04/18/23 09/14/23 concentrate (Methadose) Previous Rx's ?Medication ?Instructions ?Recorded nebulizers #1 ea 11/26/20 fluticasone propionate 50 2 spray intranasal DAILY PRN 08/11/23 mcg/actuation nasal Allergy Symptoms #16 grams spray,suspension (Allergy Relief (fluticasone)) doxycycline monohydrate 100 mg 100 mg PO Q12H #6 caps 09/17/23 capsule Ventolin HFA 90 mcg/actuation 2 puff PO Q4-6H PRN for wheezing 11/29/23 aerosol inhaler (albuterol sulfate) #18 ea levofloxacin 750 mg tablet 750 mg PO DAILY #7 tabs 12/26/23 apixaban 5 mg tablet (Eliquis) 5 mg PO BID 90 days #180 tabs 04/01/24 albuterol sulfate 90 mcg/actuation 2 puff inhalation Q4-6H PRN 04/10/24 aerosol inhaler shortness of breath or wheezing #3 ea fluticasone fur. 200 mcg-umeclid 1 inh inhalation DAILY #3 ea 04/16/24 62.5 mcg-vilant 25 mcg inhalat.powder (Trelegy Ellipta) prednisone 10 mg tablet 10 mg PO DIRECTED #70 tabs 05/12/24 albuterol sulfate 2.5 mg/3 mL 2.5 mg (3 mL) inhalation Q4-6H PRN 05/30/24 (0.083 %) solution for nebulization for wheezing #150 mL Allergies Allergy/AdvReac Type Severity Reaction Status Date / Time walnut Allergy Unknown SWELLING Verified 06/22/24 04:20 buprenorphine [From Suboxone] Allergy swelling Verified 06/22/24 04:20 in his hands and rash naloxone [From Suboxone] Allergy swelling Verified 06/22/24 04:20 in his hands and rash NSAIDS/ASA Allergy Unknown unknown Uncoded 06/22/24 04:20 walnuts Allergy Unknown anaphylaxis Uncoded 06/22/24 04:20 Review of Systems 2 Review of Systems: Yes all other systems are reviewed and are negative PMFSH Past Medical History Medical History Acute on chronic respiratory failure with hypoxia and hypercapnia Inhales drugs Heroin use Allergic asthma with status asthmaticus Moderate persistent asthma with exacerbation Opiate abuse, episodic Left against medical advice Lung problems from crack cocaine Chronic lung disease Asthma Pulmonary emboli Family History Family History Other Family history non-contributory Social History Social History Household Members: Significant Other Housing: House Do you presently have visiting nurse or other home services: Yes Unable to assess alcohol history related to: Unable to respond Alcohol intake: former Patient Tobacco Use Status: Former Tobacco user Tobacco use type: Cigarette Cigarettes Per Day: 1 Smoked in Last 30 Days: No e-Cigarette/Vaping Use: Never Used Second Hand Smoke Exposure: No Use of substances other than those prescribed or required for medical reasons: No Substance Use Type: Crack/Cocaine and Heroin Advance Directives: Yes Advance Directives on File: No Do you have a plan to hurt others: No Plan Nutrition Risks: No Nutritional Risk service: No Current occupational status: unemployed Cognitive needs: No Hearing needs: No Vision needs: No Physical Exam 2 Vital Signs: Vital Signs: Last Vital Signs Temp 97.3 F 06/22/24 05:38 Pulse 92 06/22/24 05:38 Resp 21 H 06/22/24 05:38 BP 117/87 06/22/24 05:38 Pulse Ox 96 06/22/24 05:38 O2 Del Method Oxymask 06/22/24 05:38 O2 Flow Rate 2 06/22/24 05:38 BMI result Body Mass Index 17.9 Appearance: Alert. Oriented X3. In moderate respiratory distress Eyes: PERRLA, No Nystagmus ENT: Pharynx normal. Oral Mucosa moist Neck: Normal inspection. Neck supple. CVS: Normal heart rate and rhythm. Pulses normal. Respiratory: Moderate respiratory distress. Equal air entry bilateral, with bilateral wheezing Abdomen: Soft and nontender. Bowel sounds are present, no mass palpable, no CVA tenderness Skin: Skin warm and dry. Normal skin color. Normal skin turgor. Extremities: No lower extremity edema. No calf tenderness Neuro: Oriented X 3. No motor deficit. No sensory deficit.No cerebellar signs , cranial nerves II-XII intact Medications Administered Generic Name Dose Route Start Last Admin Trade Name Freq PRN Reason Stop Dose Admin Azithromycin 500 mg 06/22/24 06:00 06/22/24 06:34 Azithromycin 500 Mg Tablet PO 500 mg Q24H EMMA Administration Discontinued Medications Generic Name Dose Route Start Last Admin Trade Name Freq PRN Reason Stop Dose Admin Albuterol Sulfate 7.5 mg/ 10 mg 06/22/24 04:38 06/22/24 04:42 Albuterol Sulfate 2.5 mg INHALE 06/22/24 04:39 10 mg ONCE ONE Administration Sodium Chloride 1,000 mls @ 999 mls/hr 06/22/24 04:19 06/22/24 05:23 Ns IV 06/22/24 05:19 Infused .Q1H1M ONE Infusion Medical Decision Making Medical Decision Making [facility] Narrative: Patient with history of asthma with hypoxic respiratory failure, chronic lung disease, comes here for increased shortness a breath just finished prednisone yesterday patient is requiring heavy doses of bronchodilators will admit patient for further management for acute hypoxia Differential Diagnosis Differential Diagnoses: The differential diagnosis associated with the presentation includes Admission/Observation Consideration of admission/observation: Escalation of care including admission/observation considered Consult Healthcare Provider Management of the patient was discussed with: Hospitalist Lab Data [facility] Lab Attestation statement: I reviewed the patient's lab results. 06/22/24 04:16 06/22/24 04:16 Labs: Lab Results 06/22/24 06/22/24 06/22/24 Range/Units 04:14 04:16 04:21 WBC 12.2 H (4.8-10.8) X10*3/uL RBC 4.11 L (4.60-5.80) X10*6/uL Hgb 13.3 L (14.0-18.0) g/dl Hct 39.0 L (42.0-52.0) % MCV 94.9 (80.0-98.0) fL MCH 32.4 (27.0-33.0) pg MCHC 34.1 (31.0-36.0) g/dl RDW 12.8 (11.0-16.0) % Plt Count 277 D (160-400) X10*3/uL MPV 9.5 (9.4-12.4) fL Immature Gran % (Auto) 0.2 (0.0-0.4) % Neut % (Auto) 57.3 (45-73) % Lymph % (Auto) 26.2 (20-40) % Morrill % (Auto) 7.7 (2-11) % Eos % (Auto) 7.9 H (0-4) % Baso % (Auto) 0.7 (0-2) % Lymph # (Auto) 3.2 (1.2-4.9) X10*3/uL Morrill # (Auto) 0.9 (0.1-1.2) X10*3/uL Eos # (Auto) 1.0 H (0.0-0.4) X10*3/uL Baso # (Auto) 0.1 (0.0-0.2) X10*3/uL Abs Immat Gran (auto) 0.03 (0.00-0.03) X10*3/uL Absolute Neuts (auto) 7.0 (2.0-8.3) x10*3/uL Absolute Nucleated RBC 0.000 (0.0-0.012) X10*3/uL Nucleated RBC % (auto) 0.0 (0.0-0.2) /100WBC VBG pH 7.32 (7.32-7.43) VBG pCO2 57 mmHg VBG pO2 92 mmHg VBG HCO3 29 H (22-26) mmol/L VBG O2 Saturation 98.0 % VBG Base Excess 2.2 mmol/L Sodium 141 (135-145) mmol/L Potassium 4.6 (3.3-5.1) mmol/L Chloride 107 (96-108) mmol/L Carbon Dioxide 24 (22-29) mmol/L Anion Gap 15 (12-20) BUN 21 H (9-16) mg/dL Creatinine 0.82 (0.5-1.4) mg/dL Estim Creat Clear Calc 91.8 Estimated GFR > 60 Random Glucose 141 H (60-115) mg/dL Calcium 8.7 (8.4-10.2) mg/dL Total Bilirubin 0.4 (0.0-1.0) mg/dL AST 30 (5-37) U/L ALT 21 (0-40) U/L Alkaline Phosphatase 54 (39-117) U/L Troponin I High Sens < 2.7 (<3.5-35.0) ng/L Total Protein 7.2 (6.5-8.0) g/dL Albumin 4.2 (3.5-5.0) g/dL Influenza Type A (PCR) NEGATIVE (Negative) Influenza Type B (PCR) NEGATIVE (Negative) RSV RNA Qual (PCR) NEGATIVE (Negative) SARS-CoV-2 RNA (RT-PCR) NEGATIVE (Negative) Independent Interpretation I performed an independent interpretation of an: EKG Interpretation: Normal sinus rhythm heart rate 96 beats per minute normal interval normal axis no acute STT wave changes impression normal EKG Radiology Impression Discussion of test interpretation with radiology: I have reviewed the radiologist's reading. Radiologist Impression: IMPRESSION: There is hyperaeration. Questionable nodular opacity right upper lung field not seen previously. Please obtain PA and lateral views when possible. Discharge Plan Discharge Clinical Impression: Acute and chronic respiratory failure with hypoxia, Asthma Patient Disposition: Admitted As Inpatient
[2024-06-22 04:22] LABS: MANUAL DIFF FLAG NO
[2024-06-22] MEDS: 0.9 % Sodium Chloride 1,000 ML 999 ML IV (04:22)
[2024-06-22 04:23] LABS: Basophils Absolute Auto 0.1 X10*3/uL (0.0-0.2); Basophils Percent Auto 0.7 % (0-2); Eosinophils Percent Auto 7.9 % (0-4); Hemoglobin 13.3 g/dl (14.0-18.0); Imm Gran Abs Auto 0.03 X10*3/uL (0.00-0.03); Imm Gran Pct Auto 0.2 % (0.0-0.4); Lymphocytes Absolute Auto 3.2 X10*3/uL (1.2-4.9); Lymphocytes Percent Auto 26.2 % (20-40); Mean Corpuscular HGB Conc 34.1 g/dl (31.0-36.0); Mean Corpuscular Hemoglobin 32.4 pg (27.0-33.0); Mean Corpuscular Volume 94.9 fL (80.0-98.0); Mean Platelet Volume 9.5 fL (9.4-12.4); Monocytes Absolute Auto 0.9 X10*3/uL (0.1-1.2); Monocytes Percent Auto 7.7 % (2-11); Neutrophils Percent Auto 57.3 % (45-73); Platelet Count 277 X10*3/uL (160-400); Red Blood Count 4.11 X10*6/uL (4.60-5.80); Red Cell Distribution Width 12.8 % (11.0-16.0); White Blood Count 12.2 X10*3/uL (4.8-10.8)
[2024-06-22 04:27] LABS: Venous Blood Gas Refer to POC result
[2024-06-22 04:28] LABS: VBG Base Excess 2.2 mmol/L; VBG HCO3 29 mmol/L (22-26); VBG pCO2 57 mmHg; VBG pH 7.32 (7.32-7.43); VBG pO2 92 mmHg
[2024-06-22 04:41] LABS: Alanine Aminotransferase 21 U/L (0-40); Albumin Level 4.2 g/dL (3.5-5.0); Alkaline Phosphatase 54 U/L (39-117); Anion Gap 15 (12-20); Aspartate Amino Transferase 30 U/L (5-37); Bilirubin Total 0.4 mg/dL (0.0-1.0); Blood Urea Nitrogen 21 mg/dL (9-16); Calcium 8.7 mg/dL (8.4-10.2); Carbon Dioxide 24 mmol/L (22-29); Chloride 107 mmol/L (96-108); Creatinine Clr Calc Pharmacy 91.8; Estimated Glomerular Filt Rate > 60; Glucose Random 141 mg/dL (60-115); Potassium 4.6 mmol/L (3.3-5.1); Sodium 141 mmol/L (135-145); Total Protein 7.2 g/dL (6.5-8.0)
[2024-06-22] MEDS: Albuterol Sulfate 7.5 MG, Albuterol Sulfate (0.083%) 2.5 MG 10 MG INHALE (04:42)
[2024-06-22 04:48] LABS: Troponin-I High Sensitivity < 2.7 ng/L (<3.5-35.0)
[2024-06-22 05:02] LABS: Influenza A PCR NEGATIVE (Negative); Influenza B PCR NEGATIVE (Negative); Resp Syncy Virus RNA Qual PCR NEGATIVE (Negative); SARS COV2 PCR INHOUSE NEGATIVE (Negative)
--- NOTE | 2024-06-22 05:42 | P.HPHOSP_ITS ---
History of Present Illness Date of Service: 06/22/24 Chief Complaint: Shortness of breath 49-year-old male with a past medical history of asthma/COPD, polysubstance abuse, opiate dependence on methadone, pulmonary embolism on Eliquis; presented to the hospital today with a chief complaint of shortness of breath. Patient mentioned that he was recently having mild COPD exacerbation and is on prednisone taper as outpatient. Over the past 2-3 days he has been having increased shortness of breath associated with cough. Denies any fevers. Denies any sick contacts. No significant improvement with his home medications/inhalers. Decided to come to the ER for further evaluation. Denies any chest pain or palpitations. Denies any nausea vomiting or diarrhea. Denies any urinary symptoms. Review of all other systems is negative except mentioned above ER course: Per ER team, patient was acutely short of breath when the EMS arrived, received nebulizations done 3, epinephrine shot; when the patient came to the ER patient appeared to be in mild respiratory distress; has significantly decreased bilateral lung sounds; stat labs: Blood gas were ordered. Patient respiratory rate is 21, speaks in full sentences, on supplemental oxygen-2 L; VBG showed pH of 7.3, pCO2 of 57; respiratory viral panel [facility] Medical History Acute on chronic respiratory failure with hypoxia and hypercapnia Inhales drugs Heroin use Allergic asthma with status asthmaticus Moderate persistent asthma with exacerbation Opiate abuse, episodic Left against medical advice Lung problems from crack cocaine Chronic lung disease Asthma Pulmonary emboli Family History Other Family history non-contributory Social History Household Members: Significant Other Housing: House Do you presently have visiting nurse or other home services: Yes Unable to assess alcohol history related to: Unable to respond Alcohol intake: former Patient Tobacco Use Status: Former Tobacco user Tobacco use type: Cigarette Cigarettes Per Day: 1 e-Cigarette/Vaping Use: Never Used Second Hand Smoke Exposure: No Substance Use Type: Crack/Cocaine and Heroin Advance Directives: Yes Advance Directives on File: No Do you have a plan to hurt others: No Plan service: No Current occupational status: unemployed Cognitive needs: No Hearing needs: No Vision needs: No Meds Allergies Allergy/AdvReac Type Severity Reaction Status Date / Time walnut Allergy Unknown SWELLING Verified 06/22/24 04:20 buprenorphine [From Suboxone] Allergy swelling Verified 06/22/24 04:20 in his hands and rash naloxone [From Suboxone] Allergy swelling Verified 06/22/24 04:20 in his hands and rash NSAIDS/ASA Allergy Unknown unknown Uncoded 06/22/24 04:20 walnuts Allergy Unknown anaphylaxis Uncoded 06/22/24 04:20 Active Medications: Current Medications Acetaminophen (Acetaminophen 325 Mg Tablet) 650 mg PO Q6H PRN PRN Reason: Pain, Mild 1-3,fever,headache Albuterol/Ipratropium (Albuterol/Iprat 2.5/0.5mg 3 Ml Ampul.Neb) 3 ml INHALE Q4H PRN PRN Reason: Shortness of Breath/Wheezing Calcium Carbonate (Calcium Carbonate 750 Mg Tab.Chew) 750 mg PO Q4H PRN PRN Reason: Heartburn Magnesium Hydroxide (Milk Of Magnesia 30 Ml Oral.Susp) 30 ml PO DAILY PRN PRN Reason: Constipation Melatonin (Melatonin 3 Mg Tablet) 6 mg PO BEDTIME PRN PRN Reason: Insomnia Sodium Chloride (0.9 % Sodium Chloride Flush 3 Ml Syringe) [facility] Medications ?Medication ?Instructions ?Recorded ?Confirmed ?Last Taken ?Type sennosides 8.6 mg-docusate sodium 1 tab-cap PO BID PRN Constipation 08/29/22 09/14/23 08/06/23 History 50 mg tablet (Senexon-S) methadone 10 mg/mL oral 48 mg PO DAILY 04/18/23 09/14/23 09/13/23 History concentrate (Methadose) Physical Exam 2 Vital Signs and Narrative: Vital Signs: Last Vital Signs Temp 97.3 F 06/22/24 05:38 Pulse 92 06/22/24 05:38 Resp 21 H 06/22/24 05:38 BP 117/87 06/22/24 05:38 Pulse Ox 96 06/22/24 05:38 O2 Del Method Oxymask 06/22/24 05:38 O2 Flow Rate 2 06/22/24 05:38 BMI result Body Mass Index 17.9 Gen: Appears be in no acute distress. Speaks in full sentences. On supplemental oxygen. HEENT: NCAT, Moist mucosa. Pulmonary: Diminished breath sounds bilaterally CVS: Normal S1-S2 Abdomen: BS+, Soft, Nontender Extremities: Warm well perfused Neuro: Alert and awake. Results Labs 06/22/24 04:16 06/22/24 04:16 Labs: Laboratory Results - last 24 hr 06/22/24 06/22/24 06/22/24 04:14 04:16 04:21 MCV 94.9 MCH 32.4 MCHC 34.1 RDW 12.8 Plt Count 277 D MPV 9.5 Immature Gran % (Auto) 0.2 Neut % (Auto) 57.3 Lymph % (Auto) 26.2 Hitchcock % (Auto) 7.7 Eos % (Auto) 7.9 H Baso % (Auto) 0.7 Lymph # (Auto) 3.2 [place]cock # (Auto) 0.9 Eos # (Auto) 1.0 H Baso # (Auto) 0.1 Abs Immat Gran (auto) 0.03 Absolute Neuts (auto) 7.0 Absolute Nucleated RBC 0.000 Nucleated RBC % (auto) 0.0 VBG pH 7.32 VBG pCO2 57 VBG pO2 92 VBG HCO3 29 H VBG O2 Saturation 98.0 VBG Base Excess 2.2 Anion Gap 15 Estim Creat Clear Calc 91.8 Estimated GFR > 60 Random Glucose 141 H Calcium 8.7 Total Bilirubin 0.4 AST 30 ALT 21 Alkaline Phosphatase 54 Total Protein 7.2 Albumin 4.2 Influenza Type A (PCR) NEGATIVE Influenza Type B (PCR) NEGATIVE RSV RNA Qual (PCR) NEGATIVE SARS-CoV-2 RNA (RT-PCR) NEGATIVE Assessment and Plan (1) Asthma with COPD with exacerbation: Status: Acute Plan 49-year-old male with a past medical history of asthma/COPD, polysubstance abuse, opiate dependence on methadone, pulmonary embolism on Eliquis; presented to the hospital today with a chief complaint of shortness of breath. Noted to be in acute asthma/COPD exacerbation. Acute asthma/COPD exacerbation: Patient received epinephrine showed by EMS team. Was in mild respiratory distress on presentation but improving. Currently speaks in full sentences. On supplemental oxygen. Patient has recent exacerbation and is on prednisone taper as outpatient prior to arrival. Plan -continue nebulizations standing and p.r.n. Continue Solu-Medrol -azithromycin -supplemental oxygen with goal oxygen saturation of 88-93% -trending pulse oximetry when ready for discharge -chest x-ray prelim read showed no acute findings-follow up final read. HX pulmonary embolism: Continue home Eliquis HX opiate dependence: Patient on methadone maintenance program. Will defer to the day hospitalist to confirm and resume methadone in a.m.. DVT prophylaxis: Patient on Eliquis Code status: Full code Quality Stroke Does the patient have a stroke diagnosis?: No VTE Prior VTE?: No VTE Risk Level:: Medical - moderate - high VTE Device Contraindication: Patient Refused VTE Drug Contraindication: N/A - Med Ordered
[2024-06-22] MEDS: Azithromycin 500 MG TABLET PO (06:34)
[2024-06-22] MEDS: Albuterol/Iprat 2.5/0.5MG 3 ML AMPUL.NEB INHALE ×4 (07:46→18:54)
--- NOTE | 2024-06-22 09:35 | HE.PHANOTE ---
Methadone Contacted [facility] ). Patient last received Methadone 58 mg on 06/21/24 @4724. Spoke with Herve.
--- NOTE | 2024-06-22 09:37 | PHA.MEDREC ---
Pharmacy Consult ? Medication Reconciliation Pharmacy has completed the medication reconciliation. Spoke with patient who knew all medications he was taking. Patient states he takes ( and has been filling consistently) BOTH breo and Trelegy although I believe he should be only on Trelegy per data systems manager note, therefore I added both to med rec. Patient also states he should be taking montelukast but can not get it refilled because he needs to find a new PCP to send in RX. I spoke with Razia Monahan with these issues.
--- NOTE | 2024-06-22 10:08 | PM.EVENT ---
Event Note Date of Service: 06/22/24 Event Note: 49-year-old male with a past medical history of asthma/COPD, polysubstance abuse, opiate dependence on methadone, pulmonary embolism on Eliquis; presented to the hospital today with a chief complaint of shortness of breath. Noted to be in acute asthma/COPD exacerbation. Acute asthma/COPD exacerbation Patient received epinephrine by EMS team. Was in mild respiratory distress on presentation but improving. Currently speaks in full sentences. Patient had recent exacerbation and is on prednisone taper as outpatient prior to arrival. continue nebulizations standing and p.r.n. and Solu-Medrol azithromycin supplemental oxygen with goal oxygen saturation of 88-93% chest x-ray with no acute findings HX pulmonary embolism Continue home Eliquis HX opiate dependence methadone DVT prophylaxis: Patient on Eliquis Code status: Full code Time Spent With Patient Time: Total time managing care of this patient today ____ minutes.
[2024-06-22] MEDS: methylPREDNISolone Sod Succ 40 MG/ML VIAL IVPUSH ×2 (10:16→21:17)
[2024-06-22] MEDS: Famotidine 20 MG TABLET PO (10:16)
[2024-06-22] MEDS: Apixaban 5 MG TABLET PO ×2 (10:16→20:06)
[2024-06-22] MEDS: methADONE HCl 20 MG/2 ML ORAL.CONC 58 MG PO (11:07)
--- NOTE | 2024-06-22 15:57 | MHC.CM.PN ---
PT REPORTS HE LIVES AT HOME WITH HIS S/O HE IS INDEPENDENT WITH CARE, HAS O2 FROM [facility], AND IS ACTIVE WITH [facility] FOR MMT PT STATES HE LOST HIS PCP DUE TO HIS INSURANCE CHANGE, HE ALSO NOTES HE DID HAVE A VNA DELIVERING HIS MED, BUT CANNOT HAVE THAT DUE TO THE PCP. HE SAYS NOW HE HAS TO GO TO THE CLINIC DAILY WHICH IS A STRUGGLE FOR HIM. PT REFUSES TO COMPLETE A HCP DCP: HOME NO SERVICES PT MAY NEED A LOANER PORTABLE O2 TANK FROM [facility] OR HOME VIA BLS
[2024-06-22] MEDS: guaiFENesin DM 100/10/5 ML 5 ML SYRUP PO (16:50)
--- NOTE | 2024-06-22 17:17 | PC.NURSE ---
left forearm with #20 IV is patent and was flushed without any complications
[2024-06-22] MEDS: 0.9 % Sodium Chloride Flush 3 ML SYRINGE IVFLUSH ×2 (17:22→20:06)
[2024-06-22] MEDS: Morphine Sulfate 2 MG/ML CARTRIDGE 1 MG IVPUSH (19:56)
[2024-06-22] MEDS: Magnesium Sulfate/D5W 1 GM/100 ML PIGGYBACK IV (19:56)
[2024-06-22] MEDS: Montelukast Sodium 10 MG TABLET PO (20:06)
[2024-06-23] VITALS (11 sets, daily range): BP systolic 106–128; BP diastolic 59–77; PULSE 72–93; RESP 16–20; TEMP 36.1–37.1; O2SAT 89–96; BMI 19.6
[2024-06-23] MEDS: guaiFENesin DM 100/10/5 ML 5 ML SYRUP PO ×3 (04:57→22:52)
[2024-06-23] MEDS: Azithromycin 500 MG TABLET PO (05:00)
[2024-06-23] MEDS: Albuterol/Iprat 2.5/0.5MG 3 ML AMPUL.NEB INHALE ×4 (07:00→19:01)
[2024-06-23 07:15] LABS: Hematocrit 38.9 % (42.0-52.0); Hemoglobin 12.9 g/dl (14.0-18.0); Mean Corpuscular HGB Conc 33.2 g/dl (31.0-36.0); Mean Corpuscular Hemoglobin 32.7 pg (27.0-33.0); Mean Corpuscular Volume 98.5 fL (80.0-98.0); Mean Platelet Volume 9.7 fL (9.4-12.4); Platelet Count 259 X10*3/uL (160-400); Red Blood Count 3.95 X10*6/uL (4.60-5.80); Red Cell Distribution Width 12.8 % (11.0-16.0); White Blood Count 16.5 X10*3/uL (4.8-10.8)
[2024-06-23 07:27] LABS: Alanine Aminotransferase 28 U/L (0-40); Albumin Level 4.1 g/dL (3.5-5.0); Alkaline Phosphatase 49 U/L (39-117); Anion Gap 14 (12-20); Aspartate Amino Transferase 30 U/L (5-37); Bilirubin Total 0.5 mg/dL (0.0-1.0); Blood Urea Nitrogen 14 mg/dL (9-16); Calcium 9.3 mg/dL (8.4-10.2); Carbon Dioxide 27 mmol/L (22-29); Chloride 104 mmol/L (96-108); Creatinine Clr Calc Pharmacy 103.1; Estimated Glomerular Filt Rate > 60; Glucose Random 111 mg/dL (60-115); Potassium 4.8 mmol/L (3.3-5.1); Sodium 140 mmol/L (135-145)
[2024-06-23] MEDS: Famotidine 20 MG TABLET PO (07:50)
[2024-06-23] MEDS: 0.9 % Sodium Chloride Flush 3 ML SYRINGE IVFLUSH ×3 (07:51→20:13)
[2024-06-23] MEDS: Apixaban 5 MG TABLET PO ×2 (07:51→20:13)
[2024-06-23] MEDS: methADONE HCl 20 MG/2 ML ORAL.CONC 58 MG PO (07:51)
--- NOTE | 2024-06-23 10:41 | P.PNIM_ITS ---
Subjective Subjective Date of Service: 06/23/24 Interval History: still wheezing though improved; on 4L O2 ambulating but fatigued easily Review of Systems Review of Systems: Yes all other systems are reviewed and are negative Physical Exam 2 Vital Signs: Vital Signs: Last Vital Signs Temp 97.6 F 06/23/24 07:17 Pulse 93 06/23/24 07:17 Resp 20 06/23/24 07:17 BP 125/75 06/23/24 07:17 Pulse Ox 94 06/23/24 07:17 O2 Del Method Oxymask 06/23/24 07:17 O2 Flow Rate 4 06/23/24 07:17 BMI result Body Mass Index 17.9 Appearing in no acute distress lung sounds are clear to auscultation heart regular rate rhythm, clear S1, S2 positive bowel sounds, abdomen is soft, nontender neuro patient is alert x3, no focal deficits Objective Data Active Medications Acetaminophen (Acetaminophen 325 Mg Tablet) 650 mg PO Q6H PRN PRN Reason: Pain, Mild 1-3,fever,headache Albuterol/Ipratropium (Albuterol/Iprat 2.5/0.5mg 3 Ml Ampul.Neb) 3 ml INHALE Q4H PRN PRN Reason: Shortness of Breath/Wheezing Albuterol/Ipratropium (Albuterol/Iprat 2.5/0.5mg 3 Ml Ampul.Neb) 3 ml INHALE RQ4H WHILE AWAKE [facility] Last Admin: 06/23/24 07:00 Dose: 3 ml Documented By: MICHAEL Apixaban (Apixaban 5 Mg Tablet) 5 mg PO BID [facility] Last Admin: 06/23/24 07:51 Dose: 5 mg Documented By: JAYNE Azithromycin (Azithromycin 500 Mg Tablet) 500 mg PO Q24H [facility] Last Admin: 06/23/24 05:00 Dose: 500 mg Documented By: ISHAAN-JOSH Calcium Carbonate (Calcium Carbonate 750 Mg Tab.Chew) 750 mg PO Q4H PRN PRN Reason: Heartburn Famotidine (Famotidine 20 Mg Tablet) 20 mg PO DAILY [facility] Last Admin: 06/23/24 07:50 Dose: 20 mg Documented By: JAYNE Fluticasone Propionate (Fluticasone Propionate Nasal 16 Gm [place]) 2 spray NOSTRIL-B DAILY [facility] Guaifenesin/Dextromethorphan (Guaifenesin Dm 100/10/5 Ml 5 Ml Syrup) 5 ml PO Q4H PRN PRN Reason: Cough Last Admin: 06/23/24 04:57 Dose: 5 ml Documented By: LYLE Magnesium Hydroxide (Milk Of Magnesia 30 Ml Oral.Susp) 30 ml PO DAILY PRN PRN Reason: Constipation Melatonin (Melatonin 3 Mg Tablet) 6 mg PO BEDTIME PRN PRN Reason: Insomnia Methadone HCl (Methadone Hcl 20 Mg/2 Ml Oral.Conc) 58 mg PO DAILY [facility] Last Admin: 06/23/24 07:51 Dose: 58 mg Documented By: JAYNE Co-signed By: EZEKIEL Methylprednisolone Sodium Succinate (Methylprednisolone Sod Succ 40 Mg/Ml Vial) 40 mg IVPUSH Q12H [facility] Last Admin: 06/22/24 21:17 Dose: 40 mg Documented By: LYLE Montelukast Sodium (Montelukast Sodium 10 Mg Tablet) 10 mg PO BEDTIME [facility] Last Admin: 06/22/24 20:06 Dose: 10 mg Documented By: LYLE Sodium Chloride (0.9 % Sodium Chloride Flush 3 Ml Syringe) 3 ml IVFLUSH QSHIFT [facility] Last Admin: 06/23/24 07:51 Dose: 3 ml Documented By: JAYNE Labs 06/23/24 07:06 06/23/24 07:06 Labs: Laboratory Results - last 24 hr 06/23/24 07:06 MCV 98.5 H MCH 32.7 MCHC 33.2 RDW 12.8 Plt Count 259 MPV 9.7 Absolute Nucleated RBC 0.000 Nucleated RBC % (auto) 0.0 Anion Gap 14 Estim Creat Clear Calc 103.1 Estimated GFR > 60 Random Glucose 111 Calcium 9.3 D Total Bilirubin 0.5 AST 30 ALT 28 Alkaline Phosphatase 49 Total Protein 7.0 Albumin 4.1 Assessment and Plan (1) Asthma: Status: Acute Plan 49-year-old male with a past medical history of asthma/COPD, polysubstance abuse, opiate dependence on methadone, pulmonary embolism on Eliquis; presented to the hospital today with a chief complaint of shortness of breath. Noted to be in acute asthma/COPD exacerbation. Acute asthma/COPD exacerbation Patient received epinephrine by EMS team. Was in mild respiratory distress on presentation but improving. Currently speaks in full sentences. Patient had recent exacerbation and is on prednisone taper as outpatient prior to arrival. continue nebulizations standing and p.r.n. and Solu-Medrol azithromycin supplemental oxygen with goal oxygen saturation of 88-93% chest x-ray with no acute findings HX pulmonary embolism Continue home Eliquis HX opiate dependence methadone DVT prophylaxis: Patient on Eliquis Code status: Full code continue steroid, nebs and abx Quality Stroke Does the patient have a stroke diagnosis?: No VTE Prior VTE?: No VTE Risk Level:: Medical - moderate - high VTE Device Contraindication: Patient Refused VTE Drug Contraindication: N/A - Med Ordered
[2024-06-23] MEDS: methylPREDNISolone Sod Succ 40 MG/ML VIAL IVPUSH ×2 (11:15→20:13)
[2024-06-23] MEDS: Montelukast Sodium 10 MG TABLET PO (20:13)
[2024-06-23] MEDS: Melatonin 3 MG TABLET 6 MG PO (20:13)
[2024-06-24] VITALS (7 sets, daily range): BP systolic 104–143; BP diastolic 59–79; PULSE 70–100; RESP 16–18; TEMP 36.1–37.7; O2SAT 93–98
[2024-06-24] MEDS: guaiFENesin DM 100/10/5 ML 5 ML SYRUP PO ×3 (04:39→20:49)
[2024-06-24] MEDS: Azithromycin 500 MG TABLET PO (04:40)
[2024-06-24] MEDS: Albuterol/Iprat 2.5/0.5MG 3 ML AMPUL.NEB INHALE (06:27)
[2024-06-24] MEDS: Apixaban 5 MG TABLET PO ×2 (08:09→20:39)
[2024-06-24] MEDS: Famotidine 20 MG TABLET PO (08:09)
[2024-06-24] MEDS: methADONE HCl 20 MG/2 ML ORAL.CONC 58 MG PO (08:10)
[2024-06-24] MEDS: 0.9 % Sodium Chloride Flush 3 ML SYRINGE IVFLUSH ×2 (08:10→16:45)
[2024-06-24] MEDS: methylPREDNISolone Sod Succ 40 MG/ML VIAL IVPUSH ×2 (10:49→20:39)
[2024-06-24] MEDS: Fluticasone Propionate Nasal 16 GM SPRAY 2 SPRAY NOSTRIL-B (10:49)
--- NOTE | 2024-06-24 13:33 | PC.NURSE ---
Ambulated patient in [place], the lengths of 3 patient rooms. HR increased from 92 to 126. O2 sat decreased from 97% to 89% room air. Patient states that he has SOB and continues to cough. Razia Monahan notified. Patient settled back into bed and HR/O2 sat back to normal at rest. Continues on Oxymask at 2 liters for comfort. Receiving IV steroids and po abx. Scheduled nebs. Will continue to monitor.
--- NOTE | 2024-06-24 13:43 | P.PNIM_ITS ---
Subjective Subjective Date of Service: 06/24/24 Interval History: still wheezing though improved; on 4L O2 ambulating but fatigued easily Review of Systems Review of Systems: Yes all other systems are reviewed and are negative Physical Exam 2 Vital Signs: Vital Signs: Last Vital Signs Temp 97.3 F 06/24/24 11:04 Pulse 77 06/24/24 11:04 Resp 18 06/24/24 11:04 BP 107/68 06/24/24 11:04 Pulse Ox 94 06/24/24 11:04 O2 Del Method Nasal Cannula, Ox ymask 06/24/24 11:04 O2 Flow Rate 2 06/24/24 11:04 BMI result Body Mass Index 19.6 Appearing in no acute distress lung sounds exp wheezing heart regular rate rhythm, clear S1, S2 positive bowel sounds, abdomen is soft, nontender neuro patient is alert x3, no focal deficits Objective Data Active Medications Acetaminophen (Acetaminophen 325 Mg Tablet) 650 mg PO Q6H PRN PRN Reason: Pain, Mild 1-3,fever,headache Albuterol/Ipratropium (Albuterol/Iprat 2.5/0.5mg 3 Ml Ampul.Neb) 3 ml INHALE Q4H PRN PRN Reason: Shortness of Breath/Wheezing Albuterol/Ipratropium (Albuterol/Iprat 2.5/0.5mg 3 Ml Ampul.Neb) 3 ml INHALE RQ4H WHILE AWAKE [facility] Last Admin: 06/24/24 11:05 Dose: Not Given Documented By: ANTONY Non-Admin Reason: Patient Refused Apixaban (Apixaban 5 Mg Tablet) 5 mg PO BID [facility] Last Admin: 06/24/24 08:09 Dose: 5 mg Documented By: FRITZ Azithromycin (Azithromycin 500 Mg Tablet) 500 mg PO Q24H [facility] Last Admin: 06/24/24 04:40 Dose: 500 mg Documented By: ANTOIC Calcium Carbonate (Calcium Carbonate 750 Mg Tab.Chew) 750 mg PO Q4H PRN PRN Reason: Heartburn Famotidine (Famotidine 20 Mg Tablet) 20 mg PO DAILY [facility] Last Admin: 06/24/24 08:09 Dose: 20 mg Documented By: FRITZ Fluticasone Propionate (Fluticasone Propionate Nasal 16 Gm [place]) 2 spray NOSTRIL-B DAILY [facility] Last Admin: 06/24/24 10:49 Dose: 2 spray Documented By: FRITZ Guaifenesin/Dextromethorphan (Guaifenesin Dm 100/10/5 Ml 5 Ml Syrup) 5 ml PO Q4H PRN PRN Reason: Cough Last Admin: 06/24/24 04:39 Dose: 5 ml Documented By: MEGHANA Magnesium Hydroxide (Milk Of Magnesia 30 Ml Oral.Susp) 30 ml PO DAILY PRN PRN Reason: Constipation Melatonin (Melatonin 3 Mg Tablet) 6 mg PO BEDTIME PRN PRN Reason: Insomnia Last Admin: 06/23/24 20:13 Dose: 6 mg Documented By: MEGHANA Methadone HCl (Methadone Hcl 20 Mg/2 Ml Oral.Conc) 58 mg PO DAILY [facility] Last Admin: 06/24/24 08:10 Dose: 58 mg Documented By: FRITZ Co-signed By: EZEKIEL Methylprednisolone Sodium Succinate (Methylprednisolone Sod Succ 40 Mg/Ml Vial) 40 mg IVPUSH Q12H [facility] Last Admin: 06/24/24 10:49 Dose: 40 mg Documented By: FRITZ Montelukast Sodium (Montelukast Sodium 10 Mg Tablet) 10 mg PO BEDTIME [facility] Last Admin: 06/23/24 20:13 Dose: 10 mg Documented By: MEGHANA Sodium Chloride (0.9 % Sodium Chloride Flush 3 Ml Syringe) 3 ml IVFLUSH QSHIFT [facility] Last Admin: 06/24/24 08:10 Dose: 3 ml Documented By: FRITZ Labs 06/23/24 07:06 06/23/24 07:06 Assessment and Plan (1) Asthma: Status: Acute Plan 49-year-old male with a past medical history of asthma/COPD, polysubstance abuse, opiate dependence on methadone, pulmonary embolism on Eliquis; presented to the hospital with a chief complaint of shortness of breath. Noted to be in acute asthma/COPD exacerbation. Acute asthma/COPD exacerbation. Slowly improving Patient received epinephrine by EMS team. Currently speaks in full sentences. Patient had recent exacerbation and is on prednisone taper as outpatient prior to arrival. continue nebulizations standing, p.r.n. and Solu-Medrol azithromycin x3 days supplemental oxygen with goal oxygen saturation of 88-93% chest x-ray with no acute findings Pulmonary consult pending HX pulmonary embolism Continue home Eliquis HX opiate dependence methadone DVT prophylaxis: Patient on Eliquis Code status: Full code continue steroid, nebs and abx, home when medically clear Quality Stroke Does the patient have a stroke diagnosis?: No VTE Prior VTE?: No VTE Risk Level:: Medical - moderate - high VTE Device Contraindication: Patient Refused VTE Drug Contraindication: N/A - Med Ordered
[2024-06-24] MEDS: Montelukast Sodium 10 MG TABLET PO (20:39)
[2024-06-24] MEDS: Melatonin 3 MG TABLET 6 MG PO (20:49)
[2024-06-25] MEDS: 0.9 % Sodium Chloride Flush 3 ML SYRINGE IVFLUSH ×2 (00:24→09:05)
[2024-06-25 03:21] VITALS: BP 126/77; PULSE 71; RESP 20; TEMP 36.1; O2SAT 95
[2024-06-25 07:03] VITALS: BP 118/80; PULSE 67; RESP 18; TEMP 36.1; O2SAT 95
[2024-06-25] MEDS: Albuterol/Iprat 2.5/0.5MG 3 ML AMPUL.NEB INHALE (07:46)
[2024-06-25 07:47] VITALS: PULSE 67; RESP 18; O2SAT 95
[2024-06-25] MEDS: Famotidine 20 MG TABLET PO (09:04)
[2024-06-25] MEDS: Apixaban 5 MG TABLET PO (09:04)
[2024-06-25] MEDS: Fluticasone Propionate Nasal 16 GM SPRAY 2 SPRAY NOSTRIL-B (09:05)
[2024-06-25] MEDS: methADONE HCl 20 MG/2 ML ORAL.CONC 58 MG PO (09:05)
[2024-06-25] MEDS: methylPREDNISolone Sod Succ 40 MG/ML VIAL IVPUSH (09:07)
--- NOTE | 2024-06-25 10:14 | PM.DS ---
DS: Providers Provider Date of Service: 06/25/24 Date of admission: 06/22/24 05:39 Date of discharge: 06/25/24 Primary care physician: None Physician Consults: 06/24/24 13:45 Consult to Pulmonology Routine Consulting Provider: [facility] [place] [facility] Reason for consultation: hypoxia Attending physician on discharge: Rene Anderson Discharging clinician: Rene Anderson DS: Diagnosis Discharge Diagnosis (1) Asthma: Status: Acute DS: Summary Hospital Course Hospital Course: HPI:49-year-old male with a past medical history of asthma/COPD, polysubstance abuse, opiate dependence on methadone, pulmonary embolism on Eliquis; presented to the hospital today with a chief complaint of shortness of breath. Patient mentioned that he was recently having mild COPD exacerbation and is on prednisone taper as outpatient. Over the past 2-3 days he has been having increased shortness of breath associated with cough. Denies any fevers. Denies any sick contacts. No significant improvement with his home medications/inhalers. Decided to come to the ER for further evaluation. Denies any chest pain or palpitations. Denies any nausea vomiting or diarrhea. Denies any urinary symptoms. Review of all other systems is negative except mentioned above ER course: Per ER team, patient was acutely short of breath when the EMS arrived, received nebulizations done 3, epinephrine shot; when the patient came to the ER patient appeared to be in mild respiratory distress; has significantly decreased bilateral lung sounds; stat labs: Blood gas were ordered. Patient respiratory rate is 21, speaks in full sentences, on supplemental oxygen-2 L; VBG showed pH of 7.3, pCO2 of 57; respiratory viral panel negative. Hospital course: 49-year-old male with a past medical history of asthma/COPD, polysubstance abuse, opiate dependence on methadone, pulmonary embolism on Eliquis; presented to the hospital with a chief complaint of shortness of breath. recent exacerbation and is on prednisone taper as outpatient prior to arrival. Noted to be in acute asthma/COPD exacerbation:patient received epinephrine by EMS team, started on nebulizations standing, p.r.n. and Solu-Medrol, added ceftin .chest x-ray with no acute findings,chest ct -concerning for acute bronchitis : with above supportive care patient seems to improved ,talking in full sentences. patient with be going home with steriods and ceftin. plan: complete prednisone 40 mg po dailyx4 days ceftin 500 mg po bidx5 days assessment and plan coordination time spent 40 min -patient understands and in agreement with above plan. Time Attestation Total time managing care of this patient today: 40 mintues. Discharge Coordination Time (in mins): 40 min Quality: Safe Use of Opioids Does Pt have an Active Cancer Diagnosis on the Problem List?: No Quality: Stroke Does the patient have a stroke diagnosis?: No Physical Exam Vital Signs: Vital Signs: Last Vital Signs Temp 96.9 F 06/25/24 07:03 Pulse 67 06/25/24 07:47 Resp 18 06/25/24 07:47 BP 118/80 06/25/24 07:03 Pulse Ox 95 06/25/24 07:03 O2 Del Method Oxymask 06/25/24 07:03 O2 Flow Rate 2 06/25/24 07:03 BMI result Body Mass Index 19.6 Appearing in no acute distress lung sounds : air entry fair .no rales or wheezing heart regular rate rhythm, clear S1, S2 positive bowel sounds, abdomen is soft, nontender neuro patient is alert x3, no focal deficits DS: Data Data Completed and Pending Completed studies during hospitalization [Text1]: Procedures Assistance with Respiratory Ventilation, Less than 24 Consecutive Hours, Continuous Positive Airway Pressure (09/14/23) Imaging Chest x-ray: Radiologist's impression: ITS Impressions Chest CT 06/24/24 15:11 IMPRESSION: Findings consistent with bronchitis as described. No focal consolidation. Electronically signed by: Virgilio Coronado MD 06/24/2024 03:51 PM EDT Discharge Plan Discharge Anticipated Discharge Date/Time: 06/25/24 09:52 Patient Disposition: Home, Self-Care Discharge Diagnosis: copd excerebation Referrals: Physician,None [Primary Care Provider] - 1 Week Discharge Medications: New prednisone 20 mg tablet 40 mg PO DAILY Qty: 8 0RF dextromethorphan-guaifenesin 10-100 mg/5 mL Syrup 5 ml PO Q4H PRN (Reason: Cough) Qty: 237 0RF cefuroxime axetil 500 mg Tablet 500 mg PO Q12H Qty: 10 0RF Continued (DME) nebulizers Misc See Rx Instructions .Route Qty: 1 0RF Rx Instructions: Use every 4 hours as needed for SOB, wheezing albuterol sulfate 90 mcg/actuation HFA aerosol inhaler 2 puff inhalation Q4-6H PRN (Reason: shortness of breath or wheezing) Qty: 3 4RF Trelegy Ellipta 200-62.5-25 mcg blister with device 1 inh inhalation DAILY Qty: 3 4RF albuterol sulfate 2.5 mg /3 mL (0.083 %) solution for nebulization 2.5 mg inhalation Q4-6H PRN (Reason: for wheezing) Qty: 150 3RF methadone [Methadose] 10 mg/mL Concentrate 58 mg PO DAILY Rx Instructions: Verified dose on 06/22/24 with [facility] [phone] montelukast 10 mg Tablet 10 mg PO BEDTIME fluticasone propionate [Allergy Relief (fluticasone)] 50 mcg/actuation spray,suspension 2 spray intranasal DAILY Rx Instructions: administer into each nostril Future refills considered AFTER blood work completed fluticasone furoate-vilanterol [Breo Ellipta] 200-25 mcg/dose blister with device 1 ea INHALATION DAILY Eliquis 5 mg tablet 5 mg PO BID 90 Days Qty: 180 4RF Discharge Orders: Discharge Order (Routine); Ordered 06/25/24 Ordered By: Rene Anderson Diet: Advance to usual diet Activity on Discharge: As tolerated Stand Alone Forms: Patient Portal Discharge page Print Language: Citizen Of [place] Care Plan Goals: going home with prednisone 40 mg x4 days ceftin 500 mg po bid x5 days follow up with pcp. Health Concerns: as above. Plan of Treatment: as above. Assessment: as above.
--- NOTE | 2024-06-25 10:31 | MHC.CM.PN ---
Addendum entered by Sandra Candelario 06/25/24 11:59: RT will provide Patient with a portable O2 tank for transport to home. Original Note: Patient has been medically cleared for dc to home today, self care. CM met with Patient at bedside and provided him with the voucher needed for him to take the [facility] shuttle home today at 12:30 PM. MD & RN are aware.
[2024-06-25] MEDS: cefuroxime axetiL 500 MG TABLET PO (11:35)
--- NOTE | 2024-06-25 11:51 | PM.CNPUL ---
History of Present Illness History of Present Illness Consult date: 06/25/24 Chief complaint: COPD exacerbation Narrative: 49-year-old gentleman with underlying asthma exacerbated by recurrent cocaine use with recurrent cocaine induced lung injury, also prior PE now on Eliquis admitted on 06/22/2024 with dyspnea and wheezing. On ER evaluation patient requiring supplemental oxygen to maintain normal oximetry and admitted to telemetry ortiz and treated with systemic glucocorticoids and nebulized bronchodilators with slow improvement. CT chest demonstrated no evidence interstitial disease. Review of Systems Constitutional: Constitutional: Denies daytime sleepiness, Denies excessive sweating, Denies fatigue, Denies fever(s), Denies lethargy, Denies malaise, Denies night sweats, Denies snoring and Denies weight loss Eyes: Eyes: Denies blurry vision and Denies itchy eyes ENT: Denies nasal congestion, Denies post nasal drip, Denies sinus pain, Denies sinus pressure and Denies other ( Thrush) Cardiovascular: Cardiovascular: Denies chest pain, Denies pedal edema, Denies dyspnea, Denies orthopnea and Denies paroxysmal nocturnal dyspnea Respiratory: Respiratory: Denies cough, Denies hemoptysis, Denies excessive phlegm production, Denies dyspnea, Denies snoring and Denies wheezing Gastrointestinal: Gastrointestinal: Denies abdominal pain and Denies heartburn Musculoskeletal: Musculoskeletal: Denies myalgias, Denies arthralgias and Denies joint swelling Integumentary/Breasts: Skin/Breast: Denies rash Neurologic: Denies memory loss and Denies seizure-like activity Psychiatric: Psychiatric: Denies abnormal sleep pattern, Denies anxiety and Denies memory loss Endocrine: Endocrine: Denies excessive sweating, Denies fatigue and Denies heat intolerance Hematologic/Lymphatic: Hematologic/Lymphatic: Denies easy bruising Allergic/Immunologic: Allergic/Immunologic: Denies itchy eyes, Denies seasonal rhinorrhea and Denies wheezing PMFSH Past Medical History Medical History Acute on chronic respiratory failure with hypoxia and hypercapnia Inhales drugs Heroin use Allergic asthma with status asthmaticus Moderate persistent asthma with exacerbation Opiate abuse, episodic Left against medical advice Lung problems from crack cocaine Chronic lung disease Asthma Pulmonary emboli Family History Family History Other Family history non-contributory Social History Social History Household Members: Significant Other Housing: House Do you presently have visiting nurse or other home services: No Unable to assess alcohol history related to: Unable to respond Alcohol intake: former Patient Tobacco Use Status: Former Tobacco user Tobacco use type: Cigarette Cigarettes Per Day: 1 Smoked in Last 30 Days: No e-Cigarette/Vaping Use: Never Used Patient Interested in Nicotine Replacement: No Patient Given Instructions on How to Stop Smoking: No Second Hand Smoke Exposure: No Use of substances other than those prescribed or required for medical reasons: No Substance Use Type: Marijuana Substance Use Frequency: Monthly Last Used Substance: Days (ago) Currently Displaying Signs/Symptoms of Drug Intoxication Withdrawal: No Any prior treatment program specific to substance use: Yes Have you been hit, kicked, punched, or otherwise hurt by someone within the past year? If so, by whom?: No Do you feel safe in your current relationship?: Yes Are you made to feel afraid or neglected: No Advance Directives: Yes Advance Directives on File: No Advance Directives Date on File: 06/22/24 Do you have a plan to hurt others: No Plan Recently lost weight without trying: No Nutrition Risks: No Nutritional Risk Poor oral hygiene: No service: No Current occupational status: unemployed Cognitive needs: No Hearing needs: No Vision needs: No Meds Allergies Allergy/AdvReac Type Severity Reaction Status Date / Time walnut Allergy Unknown SWELLING Verified 06/22/24 04:20 buprenorphine [From Suboxone] Allergy swelling Verified 06/22/24 04:20 in his hands and rash naloxone [From Suboxone] Allergy swelling Verified 06/22/24 04:20 in his hands and rash NSAIDS/ASA Allergy Unknown unknown Uncoded 06/22/24 04:20 walnuts Allergy Unknown anaphylaxis Uncoded 06/22/24 04:20 Active Medications: Current Medications Acetaminophen (Acetaminophen 325 Mg Tablet) 650 mg PO Q6H PRN PRN Reason: Pain, Mild 1-3,fever,headache Albuterol/Ipratropium (Albuterol/Iprat 2.5/0.5mg 3 Ml Ampul.Neb) 3 ml INHALE Q4H PRN PRN Reason: Shortness of Breath/Wheezing Albuterol/Ipratropium (Albuterol/Iprat 2.5/0.5mg 3 Ml Ampul.Neb) 3 ml INHALE RQ4H WHILE AWAKE [facility] Last Admin: 06/25/24 11:31 Dose: Not Given Apixaban (Apixaban 5 Mg Tablet) 5 mg PO BID [facility] Last Admin: 06/25/24 09:04 Dose: 5 mg Calcium Carbonate (Calcium Carbonate 750 Mg Tab.Chew) 750 mg PO Q4H PRN PRN Reason: Heartburn Cefuroxime Axetil (Cefuroxime Axetil 500 Mg Tablet) 500 mg PO Q12H [facility] Last Admin: 06/25/24 11:35 Dose: 500 mg Famotidine (Famotidine 20 Mg Tablet) 20 mg PO DAILY [facility] Last Admin: 06/25/24 09:04 Dose: 20 mg Fluticasone Propionate (Fluticasone Propionate Nasal 16 Gm [place]) 2 spray NOSTRIL-B DAILY [facility] Last Admin: 06/25/24 09:05 Dose: 2 spray Guaifenesin/Dextromethorphan (Guaifenesin Dm 100/10/5 Ml 5 Ml Syrup) 5 ml PO Q4H PRN PRN Reason: Cough Last Admin: 06/24/24 20:49 Dose: 5 ml Magnesium Hydroxide (Milk Of Magnesia 30 Ml Oral.Susp) 30 ml PO DAILY PRN PRN Reason: Constipation Melatonin (Melatonin 3 Mg Tablet) 6 mg PO BEDTIME PRN PRN Reason: Insomnia Last Admin: 06/24/24 20:49 Dose: 6 mg Methadone HCl (Methadone Hcl 20 Mg/2 Ml Oral.Conc) 58 mg PO DAILY [facility] Last Admin: 06/25/24 09:05 Dose: 58 mg Methylprednisolone Sodium Succinate (Methylprednisolone Sod Succ 40 Mg/Ml Vial) 40 mg IVPUSH Q12H [facility] Last Admin: 06/25/24 09:07 Dose: 40 mg Montelukast Sodium (Montelukast Sodium 10 Mg Tablet) 10 mg PO BEDTIME [facility] Last Admin: 06/24/24 20:39 Dose: 10 mg Sodium Chloride (0.9 % Sodium Chloride Flush 3 Ml Syringe) 3 ml IVFLUSH QSHIFT [facility] Last Admin: 06/25/24 09:05 Dose: 3 ml Home Medications ?Medication ?Instructions ?Recorded ?Confirmed ?Last Taken ?Type methadone 10 mg/mL oral 58 mg PO DAILY 04/18/23 06/22/24 09/13/23 History concentrate (Methadose) fluticasone furoate 200 1 ea inhalation DAILY 06/22/24 06/22/24 Unknown History mcg-vilanterol 25 mcg/dose inhalation powder (Breo Ellipta) fluticasone propionate 50 2 spray intranasal DAILY Allergy 06/22/24 06/22/24 Unknown History mcg/actuation nasal Symptoms spray,suspension (Allergy Relief (fluticasone)) montelukast 10 mg tablet 10 mg PO BEDTIME 06/22/24 06/22/24 Unknown History Physical Exam Vital Signs: Vital Signs: Last Vital Signs Temp 96.9 F 06/25/24 07:03 Pulse 67 06/25/24 07:47 Resp 18 06/25/24 07:47 BP 118/80 06/25/24 07:03 Pulse Ox 95 06/25/24 07:03 O2 Del Method Oxymask 06/25/24 07:03 O2 Flow Rate 2 06/25/24 07:03 BMI result Body Mass Index 19.6 Const: General: no acute distress and alert Nutritional Appearance: not obese Orientation/consciousness: Other orientation findings ( oriented) HEENT: Head: Yes atraumatic Eyes: General: appearance normal, both eyes and all related structures Sclerae: sclerae normal EOM: EOMs intact bilaterally Neck: Neck: Yes supple Lymphatic: no lymphadenopathy noted Resp: Effort & Inspection: normal respiratory effort and no use of accessory muscles Auscultation: clear to auscultation bilaterally Cardio: Rate: regular rate Rhythm: regular rhythm Heart sounds: no gallops, no murmurs and no rubs Skin: General skin exam: other ( warm) Extrem: General: No clubbing, No cyanosis and No edema Results Laboratory Findings 06/23/24 07:06 06/23/24 07:06 Abnormal lab findings: Abnormal Labs 06/22/24 06/22/24 06/23/24 04:16 04:21 07:06 WBC 12.2 H 16.5 H RBC 4.11 L 3.95 L Hgb 13.3 L 12.9 L Hct 39.0 L 38.9 L MCV 98.5 H Eos % (Auto) 7.9 H Eos # (Auto) 1.0 H VBG HCO3 29 H BUN 21 H Random Glucose 141 H Assessment and Plan (1) Asthma exacerbation: Status: Acute Plan Impression: 49-year-old gentleman with underlying severe asthma exacerbation by substance abuse admitted with dyspnea hypoxia secondary to asthma exacerbation, improving on empiric systemic glucocorticoids and nebulized bronchodilators. CT chest with no evidence of acute lung injury at this time. Recommendation: Agree with empiric systemic glucocorticoids taper and continuation of nebulized bronchodilators. Procedures Date of Service Date of Service: 06/25/24
== END 2024-06-25 12:30 | disposition home or self-care (01) | DRG 140 ==
LOC: HO.ED 04:50 → HO.EDOVER 05:44 → HO.IMC 07:51
PROVIDERS: Admitting Provider Hospitalist; Emergency Provider Internal Medicine; Visit Provider Internal Medicine
DX: J44.1 Chronic obstructive pulmonary disease with (acute) exacerbation (principal); J45.41 Moderate persistent asthma with (acute) exacerbation; F11.20 Opioid dependence, uncomplicated; F19.10 Other psychoactive substance abuse, uncomplicated; Z20.822 Contact with and (suspected) exposure to COVID-19; Z86.711 Personal history of pulmonary embolism; Z87.891 Personal history of nicotine dependence; Z79.01 Long term (current) use of anticoagulants; Z79.51 Long term (current) use of inhaled steroids; Z79.899 Other long term (current) drug therapy
CPT/HCPCS: 0241U; 36415; 71045; 71250; 80053; 82803; 84484; 85025; 85027; 93005; 94640; 99222; 99285; J2270; J2919; J3475

== ENCOUNTER → 2024-06-22 04:20 | Outpatient (BNV) | payer OTHER, SELFPAY | PROVIDERS: Admitting Provider Hospitalist; Emergency Provider Internal Medicine; Visit Provider Internal Medicine | DX: J44.1 Chronic obstructive pulmonary disease with (acute) exacerbation (principal) | CPT/HCPCS: 93010 ==

== ENCOUNTER → 2024-06-22 05:10 | Outpatient (BNV) | payer OTHER, SELFPAY | PROVIDERS: Admitting Provider Hospitalist; Emergency Provider Internal Medicine; Visit Provider Radiology Diagnostic Radiology | DX: R06.00 Dyspnea, unspecified (principal); R05.9 Cough, unspecified | CPT/HCPCS: 71045 ==

== ENCOUNTER 2024-06-22 05:39 | Outpatient (BNV) | payer OTHER, SELFPAY | END 2024-06-24 15:11 | PROVIDERS: Admitting Provider Hospitalist; Emergency Provider Internal Medicine; Visit Provider Radiology Diagnostic Radiology | DX: R09.02 Hypoxemia (principal) | CPT/HCPCS: 71250 ==

== ENCOUNTER → 2024-06-22 05:39 | Outpatient (BNV) | payer OTHER, SELFPAY | PROVIDERS: Admitting Provider Hospitalist; Emergency Provider Internal Medicine; Visit Provider Nurse Practitioner Acute Care | DX: J45.901 Unspecified asthma with (acute) exacerbation (principal); J44.1 Chronic obstructive pulmonary disease with (acute) exacerbation | CPT/HCPCS: 99222; 99232; 99239; 99499 ==

== ENCOUNTER → 2024-06-22 05:39 | Outpatient (BNV) | payer OTHER, SELFPAY | PROVIDERS: Admitting Provider Hospitalist; Emergency Provider Internal Medicine; Visit Provider Internal Medicine Pulmonary Disease | DX: J45.901 Unspecified asthma with (acute) exacerbation (principal) | CPT/HCPCS: 99222 ==

== ENCOUNTER 2024-07-06 20:33 | Inpatient (IN) | payer OTHER, SELFPAY ==
--- NOTE | ~2024-07-06 | XR_ITS ---
CLINICAL HISTORY: dyspnea 1 view chest x-ray Comparison: CR - XR CHEST 1V - 06/22/24 05:16 EDT Findings: The lungs are clear. Normal size heart. No acute fracture. IMPRESSION: 1. No acute findings. This document has been electronically signed by: Yousif Del Toro MD on 07/06/2024 21:52:00
[2024-07-06 20:37] VITALS: BP 130/90; PULSE 102; O2SAT 90
[2024-07-06 20:40] VITALS: BMI 17.1
[2024-07-06 20:41] VITALS: BP 128/84; PULSE 87; RESP 20; TEMP 36.6; O2SAT 89; BMI 21.3
[2024-07-06 21:14] LABS: Basophils Absolute Auto 0.1 X10*3/uL (0.0-0.2); Basophils Percent Auto 0.7 % (0-2); Eosinophils Absolute Auto 0.7 X10*3/uL (0.0-0.4); Eosinophils Percent Auto 7.2 % (0-4); Hemoglobin 13.7 g/dl (14.0-18.0); Imm Gran Abs Auto 0.02 X10*3/uL (0.00-0.03); Imm Gran Pct Auto 0.2 % (0.0-0.4); Lymphocytes Absolute Auto 2.8 X10*3/uL (1.2-4.9); Lymphocytes Percent Auto 28.7 % (20-40); MANUAL DIFF FLAG NO; Mean Corpuscular HGB Conc 33.4 g/dl (31.0-36.0); Mean Corpuscular Hemoglobin 32.5 pg (27.0-33.0); Mean Corpuscular Volume 97.4 fL (80.0-98.0); Mean Platelet Volume 9.2 fL (9.4-12.4); Monocytes Absolute Auto 0.7 X10*3/uL (0.1-1.2); Monocytes Percent Auto 6.7 % (2-11); Neutrophils Absolute Auto 5.6 x10*3/uL (2.0-8.3); Neutrophils Percent Auto 56.5 % (45-73); Platelet Count 192 X10*3/uL (160-400); Red Blood Count 4.21 X10*6/uL (4.60-5.80); Red Cell Distribution Width 12.7 % (11.0-16.0); White Blood Count 9.9 X10*3/uL (4.8-10.8)
[2024-07-06 21:25] LABS: Venous Blood Gas Refer to POC result
[2024-07-06 21:31] LABS: VBG Base Excess 3.5 mmol/L; VBG HCO3 27 mmol/L (22-26); VBG pCO2 39 mmHg; VBG pH 7.44 (7.32-7.43); VBG pO2 37 mmHg
[2024-07-06 21:35] LABS: Alanine Aminotransferase 17 U/L (0-40); Albumin Level 3.8 g/dL (3.5-5.0); Alkaline Phosphatase 48 U/L (39-117); Anion Gap 12 (12-20); Aspartate Amino Transferase 26 U/L (5-37); Bilirubin Total 0.4 mg/dL (0.0-1.0); Blood Urea Nitrogen 16 mg/dL (9-16); Calcium 8.7 mg/dL (8.4-10.2); Carbon Dioxide 24 mmol/L (22-29); Chloride 106 mmol/L (96-108); Creatinine Clr Calc Pharmacy 101.8; Estimated Glomerular Filt Rate > 60; Glucose Random 107 mg/dL (60-115); Lipase 6 U/L (8-78); Magnesium 3.1 mg/dL (1.6-2.6); Potassium 4.4 mmol/L (3.3-5.1); Sodium 138 mmol/L (135-145); Total Protein 6.7 g/dL (6.5-8.0)
[2024-07-06 21:42] LABS: Troponin-I High Sensitivity < 2.7 ng/L (<3.5-35.0)
[2024-07-06 21:54] LABS: Influenza A PCR NEGATIVE (Negative); Influenza B PCR NEGATIVE (Negative); Resp Syncy Virus RNA Qual PCR NEGATIVE (Negative); SARS COV2 PCR INHOUSE NEGATIVE (Negative)
[2024-07-06 22:23] VITALS: BP 109/63; PULSE 80; RESP 16; TEMP 36.7; O2SAT 92
--- NOTE | 2024-07-06 23:03 | ED_ITS ---
HPI - General Adult General Chief complaint: Dyspnea Stated complaint: sob Time Seen by Provider: 07/06/24 23:02 History of Present Illness ED Provider: Marcia ABBOTT narrative: the patient is a 49-year-old male with a history of asthma. He has a history of multiple hospitalizations for his asthma although he says he has never been intubated. 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 The patient says he started to feel short of breath yesterday. his symptoms were somewhat mild in intermittently yesterday but got worse during the night last night and then were persistent during the day today. He was using his albuterol inhaler a lot today. Ultimately he called an ambulance and was brought to the hospital. He does not know if he has had any fevers. From paramedics you received 120 mg of methylprednisolone, 2 g of magnesium, and 2 DuoNeb treatments. No pain or swelling in his legs. No nausea or vomiting. Related Data Home Medications ?Medication ?Instructions ?Recorded ?Confirmed methadone 10 mg/mL oral 58 mg PO DAILY 04/18/23 06/22/24 concentrate (Methadose) fluticasone furoate 200 1 ea inhalation DAILY 06/22/24 06/22/24 mcg-vilanterol 25 mcg/dose inhalation powder (Breo Ellipta) fluticasone propionate 50 2 spray intranasal DAILY Allergy 06/22/24 06/22/24 mcg/actuation nasal Symptoms spray,suspension (Allergy Relief (fluticasone)) montelukast 10 mg tablet 10 mg PO BEDTIME 06/22/24 06/22/24 Previous Rx's ?Medication ?Instructions ?Recorded nebulizers #1 ea 11/26/20 apixaban 5 mg tablet (Eliquis) 5 mg PO BID 90 days #180 tabs 04/01/24 albuterol sulfate 90 mcg/actuation 2 puff inhalation Q4-6H PRN 04/10/24 aerosol inhaler shortness of breath or wheezing #3 ea fluticasone fur. 200 mcg-umeclid 1 inh inhalation DAILY #3 ea 04/16/24 62.5 mcg-vilant 25 mcg inhalat.powder (Trelegy Ellipta) albuterol sulfate 2.5 mg/3 mL 2.5 mg (3 mL) inhalation Q4-6H PRN 05/30/24 (0.083 %) solution for nebulization for wheezing #150 mL cefuroxime axetil 500 mg tablet 500 mg PO Q12H #10 tabs 06/25/24 dextromethorphan-guaifenesin 10 5 ml PO Q4H PRN Cough #237 mL 06/25/24 mg-100 mg/5 mL oral syrup prednisone 20 mg tablet 40 mg (2 x 20 mg) PO DAILY #8 tabs 06/25/24 Allergies Allergy/AdvReac Type Severity Reaction Status Date / Time walnut Allergy Unknown SWELLING Verified 07/06/24 20:55 buprenorphine [From Suboxone] Allergy swelling Verified 07/06/24 20:55 in his hands and rash naloxone [From Suboxone] Allergy swelling Verified 07/06/24 20:55 in his hands and rash NSAIDS/ASA Allergy Unknown unknown Uncoded 07/06/24 20:55 walnuts Allergy Unknown anaphylaxis Uncoded 07/06/24 20:55 Review of Systems 2 Review of Systems: Yes all other systems are reviewed and are negative PMFSH Past Medical History Medical History Acute on chronic respiratory failure with hypoxia and hypercapnia Inhales drugs Heroin use Allergic asthma with status asthmaticus Moderate persistent asthma with exacerbation Opiate abuse, episodic Left against medical advice Lung problems from crack cocaine Chronic lung disease Asthma Pulmonary emboli Family History Family History Other Family history non-contributory Social History Social History Household Members: Significant Other Housing: House Do you presently have visiting nurse or other home services: No Unable to assess alcohol history related to: Unable to respond Alcohol intake: former Patient Tobacco Use Status: Former Tobacco user Tobacco use type: Cigarette Cigarettes Per Day: 1 e-Cigarette/Vaping Use: Never Used Second Hand Smoke Exposure: No Substance Use Type: Marijuana Advance Directives: Yes Advance Directives on File: Yes Advance Directives Date on File: 06/22/24 service: No Current occupational status: unemployed Cognitive needs: No Hearing needs: No Vision needs: No Physical Exam ED Vital Signs: Vital Signs - 24 hr 07/06/24 20:41 07/06/24 22:23 07/06/24 23:29 Temperature 98 F 98.1 F Pulse Rate 87 80 76 Respiratory Rate 20 16 16 Blood Pressure 128/84 109/63 Pulse Oximetry 89 L 92 Oxygen Delivery Method Room Air Nasal Cannula Oxygen Flow Rate 2 07/07/24 00:06 07/07/24 02:10 Temperature Pulse Rate 77 86 Respiratory Rate 13 25 H Blood Pressure 101/64 131/74 Pulse Oximetry 94 91 L Oxygen Delivery Method Nasal Cannula Room Air Oxygen Flow Rate 2 2 BMI result Body Mass Index 21.3 Const Other: The patient is a slim 49-year-old male who was awake and alert. He was on 2 L nasal cannula with an oxygen saturation in the low 90s. He was not exhibiting obvious increased work of breathing. He looked fatigued however. HENMT Other: Face is symmetrical, mucous membranes moist. Eyes General: appearance normal, both eyes and all related structures Alignment and Position: alignment normal Eyelids: Yes eyelids normal Conjunctivae: conjunctivae normal Sclerae: sclerae normal Pupils: Equal, round and reactive pupils present EOM: EOMs intact bilaterally Neck Other: No stridor, no JVD, no lymphadenopathy Chest Other: Resp Other: inspiratory and expiratory wheezes bilaterally. Cardio Rate: regular rate Rhythm: regular rhythm Heart sounds: S1 normal heart sound present and S2 normal heart sound present GI Other: The abdomen is soft and nontender Skin Other: skin is pale and dry. Neuro Other: the patient seems somewhat fatigued but had normal cranial nerves 2-12. He moves his extremities symmetrically and appropriately. Cranial nerves: Yes Equal, round and reactive pupils present Extrem Other: No calf swelling or tenderness, no asymmetry, no pedal edema. Medications Administered Discontinued Medications Generic Name Dose Route Start Last Admin Trade Name Jose PRN Reason Stop Dose Admin Albuterol Sulfate 5 mg 07/07/24 00:56 07/07/24 00:57 Albuterol Sulfate (0.083%) 2.5 Mg/3 Ml Vial.Neb INHALE 07/07/24 00:57 5 mg ONCE ONE Administration Albuterol Sulfate 2.5 mg/ 0 mg 07/06/24 23:24 07/06/24 23:25 Albuterol/Ipratropium 3 ml INHALE 07/06/24 23:25 1 dose ONCE ONE Administration Sodium Chloride 1,000 mls @ 999 mls/hr 07/07/24 01:45 07/07/24 02:12 Ns IV 07/07/24 02:45 999 mls/hr .Q1H1M EMMA Administration Medical Decision Making Medical Decision Making [facility] Narrative: The patient is a 49-year-old with a history of significant asthma. He presents today with a about 24 hours of worsening symptoms. No fevers. Chest x-ray is clear. Other labs are unremarkable. He had received 125 mg of methylprednisolone from paramedics in route to the hospital. He had also received 2 g of magnesium and 2 DuoNeb treatments from paramedics. The patient was then given additional bronchodilator treatments in the emergency room. It was unclear whether he would require hospitalization. His oxygen saturations were hovering just below 90. He says that he feels quite fatigued.. Ultimately after additional bronchodilator treatments in the emergency room the patient is still had an oxygen requirement and so he will be admitted for further care. Lab Data 07/06/24 20:57 07/06/24 20:57 Labs: Lab Results 07/06/24 07/06/24 Range/Units 20:57 21:13 WBC 9.9 (4.8-10.8) X10*3/uL RBC 4.21 L (4.60-5.80) X10*6/uL Hgb 13.7 L (14.0-18.0) g/dl Hct 41.0 L (42.0-52.0) % MCV 97.4 (80.0-98.0) fL MCH 32.5 (27.0-33.0) pg MCHC 33.4 (31.0-36.0) g/dl RDW 12.7 (11.0-16.0) % Plt Count 192 D (160-400) X10*3/uL MPV 9.2 L (9.4-12.4) fL Immature Gran % (Auto) 0.2 (0.0-0.4) % Neut % (Auto) 56.5 (45-73) % Lymph % (Auto) 28.7 (20-40) % [place] % (Auto) 6.7 (2-11) % Eos % (Auto) 7.2 H (0-4) % Baso % (Auto) 0.7 (0-2) % Lymph # (Auto) 2.8 (1.2-4.9) X10*3/uL [place] # (Auto) 0.7 (0.1-1.2) X10*3/uL Eos # (Auto) 0.7 H (0.0-0.4) X10*3/uL Baso # (Auto) 0.1 (0.0-0.2) X10*3/uL Abs Immat Gran (auto) 0.02 (0.00-0.03) X10*3/uL Absolute Neuts (auto) 5.6 (2.0-8.3) x10*3/uL Absolute Nucleated RBC 0.000 (0.0-0.012) X10*3/uL Nucleated RBC % (auto) 0.0 (0.0-0.2) /100WBC VBG pH 7.44 H (7.32-7.43) VBG pCO2 39 mmHg VBG pO2 37 mmHg VBG HCO3 27 H (22-26) mmol/L VBG O2 Saturation 62.0 % VBG Base Excess 3.5 mmol/L Sodium 138 (135-145) mmol/L Potassium 4.4 (3.3-5.1) mmol/L Chloride 106 (96-108) mmol/L Carbon Dioxide 24 (22-29) mmol/L Anion Gap 12 (12-20) BUN 16 (9-16) mg/dL Creatinine 0.88 (0.5-1.4) mg/dL Estim Creat Clear Calc 101.8 Estimated GFR > 60 Random Glucose 107 (60-115) mg/dL Calcium 8.7 D (8.4-10.2) mg/dL Magnesium 3.1 H (1.6-2.6) mg/dL Total Bilirubin 0.4 (0.0-1.0) mg/dL AST 26 (5-37) U/L ALT 17 (0-40) U/L Alkaline Phosphatase 48 (39-117) U/L Troponin I High Sens < 2.7 (<3.5-35.0) ng/L Total Protein 6.7 (6.5-8.0) g/dL Albumin 3.8 (3.5-5.0) g/dL Lipase 6 L (8-78) U/L Influenza Type A (PCR) NEGATIVE (Negative) Influenza Type B (PCR) NEGATIVE (Negative) RSV RNA Qual (PCR) NEGATIVE (Negative) SARS-CoV-2 RNA (RT-PCR) NEGATIVE (Negative) Discharge Plan Discharge Patient Disposition: Admitted As Inpatient Prescriptions: No Action (DME) nebulizers Misc See Rx Instructions .Route Qty: 1 0RF Rx Instructions: Use every 4 hours as needed for SOB, wheezing albuterol sulfate 90 mcg/actuation HFA aerosol inhaler 2 puff inhalation Q4-6H PRN (Reason: shortness of breath or wheezing) Qty: 3 4RF Trelegy Ellipta 200-62.5-25 mcg blister with device 1 inh inhalation DAILY Qty: 3 4RF albuterol sulfate 2.5 mg /3 mL (0.083 %) solution for nebulization 2.5 mg inhalation Q4-6H PRN (Reason: for wheezing) Qty: 150 3RF methadone [Methadose] 10 mg/mL Concentrate 58 mg PO DAILY Rx Instructions: Verified dose on 06/22/24 with [facility] [phone] montelukast 10 mg Tablet 10 mg PO BEDTIME fluticasone propionate [Allergy Relief (fluticasone)] 50 mcg/actuation spray,suspension 2 spray intranasal DAILY Rx Instructions: administer into each nostril Future refills considered AFTER blood work completed fluticasone furoate-vilanterol [Breo Ellipta] 200-25 mcg/dose blister with device 1 ea INHALATION DAILY prednisone 20 mg tablet 40 mg PO DAILY Qty: 8 0RF dextromethorphan-guaifenesin 10-100 mg/5 mL Syrup 5 ml PO Q4H PRN (Reason: Cough) Qty: 237 0RF cefuroxime axetil 500 mg Tablet 500 mg PO Q12H Qty: 10 0RF Eliquis 5 mg tablet 5 mg PO BID 90 Days Qty: 180 4RF Print Language: Ug[place]an
[2024-07-06] MEDS: Albuterol Sulfate 2.5 MG, Albuterol/Iprat 2.5/0.5MG 3 ML 3 ML INHALE (23:25)
[2024-07-06 23:29] VITALS: PULSE 76; RESP 16; O2SAT 94
[2024-07-07 00:06] VITALS: BP 101/64; PULSE 77; RESP 13; O2SAT 94
[2024-07-07] MEDS: Albuterol Sulfate (0.083%) 2.5 MG/3 ML VIAL.NEB 5 MG INHALE (00:57)
[2024-07-07 02:10] VITALS: BP 131/74; PULSE 86; RESP 25; O2SAT 91
[2024-07-07] MEDS: 0.9 % Sodium Chloride 1,000 ML 999 ML IV (02:12)
--- NOTE | 2024-07-07 03:49 | PC.NURSE ---
sleeping. unlabored, side-lying. skin pale, warm dry. NAD.
--- NOTE | 2024-07-07 05:06 | P.HPHOSP_ITS ---
History of Present Illness Date of Service: 07/07/24 Chief Complaint: SOB 49-year-old male with a past medical history of polysubstance abuse, opiate dependence on methadone maintenance program, he takes pulmonary embolism on Eliquis, asthma/COPD-never intubated, recent admission to the hospital for acute asthma/COPD exacerbation on 06/22/2024; presented to the hospital today with a chief complaint of shortness of breath. Patient reports that in the past 4 days he has been having shortness of breath associated with cough. Mentioned that he finished his course of prednisone from the last discharge from the hospital. Denies any fevers and chills. Denies any chest pain or palpitations. Denies any GI or symptoms. Review of all other systems is negative except mentioned above ER course: Per ER team, patient on presentation noted to be in mild respiratory distress, hypoxic to 89 %, placed on supplemental oxygen, has significant inspiratory and expiratory wheezing, given nebulizations and steroids with slight improvement in wheezing. Not in respiratory distress, able to speak in full sentences. [facility] Medical History Acute on chronic respiratory failure with hypoxia and hypercapnia Inhales drugs Heroin use Allergic asthma with status asthmaticus Moderate persistent asthma with exacerbation Opiate abuse, episodic Left against medical advice Lung problems from crack cocaine Chronic lung disease Asthma Pulmonary emboli Family History Other Family history non-contributory Social History Household Members: Significant Other Housing: House Do you presently have visiting nurse or other home services: No Unable to assess alcohol history related to: Unable to respond Alcohol intake: former Patient Tobacco Use Status: Former Tobacco user Tobacco use type: Cigarette Cigarettes Per Day: 1 e-Cigarette/Vaping Use: Never Used Second Hand Smoke Exposure: No Substance Use Type: Marijuana Advance Directives: Yes Advance Directives on File: Yes Advance Directives Date on File: 06/22/24 service: No Current occupational status: unemployed Cognitive needs: No Hearing needs: No Vision needs: No Meds Allergies Allergy/AdvReac Type Severity Reaction Status Date / Time walnut Allergy Unknown SWELLING Verified 07/06/24 20:55 buprenorphine [From Suboxone] Allergy swelling Verified 07/06/24 20:55 in his hands and rash naloxone [From Suboxone] Allergy swelling Verified 07/06/24 20:55 in his hands and rash NSAIDS/ASA Allergy Unknown unknown Uncoded 07/06/24 20:55 walnuts Allergy Unknown anaphylaxis Uncoded 07/06/24 20:55 Home Medications ?Medication ?Instructions ?Recorded ?Confirmed ?Last Taken ?Type methadone 10 mg/mL oral 58 mg PO DAILY 04/18/23 06/22/24 09/13/23 History concentrate (Methadose) fluticasone furoate 200 1 ea inhalation DAILY 06/22/24 06/22/24 Unknown History mcg-vilanterol 25 mcg/dose inhalation powder (Breo Ellipta) fluticasone propionate 50 2 spray intranasal DAILY Allergy 06/22/24 06/22/24 Unknown History mcg/actuation nasal Symptoms spray,suspension (Allergy Relief (fluticasone)) montelukast 10 mg tablet 10 mg PO BEDTIME 06/22/24 06/22/24 Unknown History Physical Exam 2 Vital Signs and Narrative: Vital Signs: Last Vital Signs Temp 98.1 F 07/06/24 22:23 Pulse 86 07/07/24 02:10 Resp 25 H 07/07/24 02:10 BP 131/74 07/07/24 02:10 Pulse Ox 91 L 07/07/24 02:10 O2 Del Method Room Air 07/07/24 02:10 O2 Flow Rate 2 07/07/24 02:10 BMI result Body Mass Index 21.3 Gen: Appears be in no acute distress HEENT: NCAT, Moist mucosa. Pulmonary: Bilateral wheezing present. On supplemental oxygen. Speaks in full sentences. CVS: Normal S1-S2 Abdomen: BS+, Soft, Nontender Extremities: Warm well perfused Neuro: Alert and awake. Results Labs 07/06/24 20:57 07/06/24 20:57 Labs: Laboratory Results - last 24 hr 07/06/24 07/06/24 20:57 21:13 MCV 97.4 MCH 32.5 MCHC 33.4 RDW 12.7 Plt Count 192 D MPV 9.2 L Immature Gran % (Auto) 0.2 Neut % (Auto) 56.5 Lymph % (Auto) 28.7 [place] % (Auto) 6.7 Eos % (Auto) 7.2 H Baso % (Auto) 0.7 Lymph # (Auto) 2.8 [place] # (Auto) 0.7 Eos # (Auto) 0.7 H Baso # (Auto) 0.1 Abs Immat Gran (auto) 0.02 Absolute Neuts (auto) 5.6 Absolute Nucleated RBC 0.000 Nucleated RBC % (auto) 0.0 VBG pH 7.44 H VBG pCO2 39 VBG pO2 37 VBG HCO3 27 H VBG O2 Saturation 62.0 VBG Base Excess 3.5 Anion Gap 12 Estim Creat Clear Calc 101.8 Estimated GFR > 60 Random Glucose 107 Calcium 8.7 D Magnesium 3.1 H Total Bilirubin 0.4 AST 26 ALT 17 Alkaline Phosphatase 48 Total Protein 6.7 Albumin 3.8 Lipase 6 L Influenza Type A (PCR) NEGATIVE Influenza Type B (PCR) NEGATIVE RSV RNA Qual (PCR) NEGATIVE SARS-CoV-2 RNA (RT-PCR) NEGATIVE Assessment and Plan (1) Acute asthma exacerbation: Qualifiers: Asthma severity: unspecified severity Asthma persistence: persistent Q ualified Code(s): J45.901 - Unspecified asthma with (acute) exacerbation Status: Acute Plan 49-year-old male with a past medical history of polysubstance abuse, opiate dependence on methadone maintenance program, he takes pulmonary embolism on Eliquis, asthma/COPD-never intubated, recent admission to the hospital for acute asthma/COPD exacerbation on 06/22/2024; presented to the hospital today with a chief complaint of shortness of breath. Noted to be in acute asthma/COPD exacerbation. Acute asthma/COPD exacerbation: Acute hypoxic respiratory failure: Was in mild respiratory distress on presentation but improving. Currently speaks in full sentences. On supplemental oxygen. Patient has recent admission for similar presentation-discharged on 06/25/24 Chest x-ray showed no acute cardiopulmonary process Plan -continue nebulizations standing and p.r.n. Continue Solu-Medrol -doxycycline -supplemental oxygen with goal oxygen saturation of 88-93% -trending pulse oximetry when ready for discharge HX pulmonary embolism: Continue home Eliquis HX opiate dependence: Patient on methadone maintenance program. Will defer to the day hospitalist to confirm and resume methadone in a.m.. DVT prophylaxis: Patient on Eliquis Code status: Full code Quality Stroke Does the patient have a stroke diagnosis?: No VTE Prior VTE?: No VTE Risk Level:: Medical - moderate - high VTE Device Contraindication: Treatment Not Indicated VTE Drug Contraindication: N/A - Med Ordered
[2024-07-07 05:20] VITALS: BP 105/63; PULSE 81; RESP 16; O2SAT 92
[2024-07-07] MEDS: Doxycycline Monohydrate 100 MG CAPSULE PO (05:50)
--- NOTE | 2024-07-07 06:40 | PC.NURSE ---
continues to rest/sleep w/o distress. is aware that he is waiting for bed assignment.
--- NOTE | 2024-07-07 07:17 | PC.NURSE ---
Methadone verification walked down to pharmacy.
--- NOTE | 2024-07-07 07:27 | HE.PHANOTE ---
Methadone confirmation form received Patient [facility]. Last dose 07/06 @ 6201
[2024-07-07 07:49] VITALS: PULSE 87; RESP 20
[2024-07-07] MEDS: Albuterol/Iprat 2.5/0.5MG 3 ML AMPUL.NEB INHALE (07:49)
--- NOTE | 2024-07-07 08:48 | PHA.MEDREC ---
Pharmacy Consult ? Medication Reconciliation Pharmacy has completed the medication reconciliation. Spoke to patient at bedside, he confirmed all his medications
--- NOTE | 2024-07-07 09:23 | PM.DS ---
DS: Providers Provider Date of Service: 07/07/24 Date of admission: 07/07/24 05:03 Date of discharge: 07/07/24 Primary care physician: Unknown Physician DS: Diagnosis Discharge Diagnosis (1) Acute asthma exacerbation: Status: Acute DS: Summary Hospital Course Hospital Course: from initial hpi: 49-year-old male with a past medical history of polysubstance abuse, opiate dependence on methadone maintenance program, he takes pulmonary embolism on Eliquis, asthma/COPD-never intubated, recent admission to the hospital for acute asthma/COPD exacerbation on 06/22/2024; presented to the hospital today with a chief complaint of shortness of breath. Patient reports that in the past 4 days he has been having shortness of breath associated with cough. Mentioned that he finished his course of prednisone from the last discharge from the hospital. Denies any fevers and chills. Denies any chest pain or palpitations. Denies any GI or symptoms. Review of all other systems is negative except mentioned above ER course: Per ER team, patient on presentation noted to be in mild respiratory distress, hypoxic to 89 %, placed on supplemental oxygen, has significant inspiratory and expiratory wheezing, given nebulizations and steroids with slight improvement in wheezing. Not in respiratory distress, able to speak in full sentences. hospital course: Patient was admitted for acute hypoxic respiratory failure secondary to moderate persistent asthma/COPD with acute decompensation due to cocaine induced vasospasms. Was treated with steroids and doxycycline and symptoms significantly improved. Was able to ambulate on room air with minimal symptoms. he did briefly desaturate to 88% at then end, but he does have prn oxygen at home. He will be discharged on 5 more days of prednisone and doxycycline and instructed to avoid cocaine. For history of pulmonary embolism continued on Eliquis. For history of opiate dependence continued on methadone. Time Attestation Discharge Coordination Time (in mins): 37 Quality: Safe Use of Opioids Does Pt have an Active Cancer Diagnosis on the Problem List?: No Quality: Stroke Does the patient have a stroke diagnosis?: No Physical Exam Vital Signs: Vital Signs: Last Vital Signs Temp 98.1 F 07/06/24 22:23 Pulse 87 07/07/24 07:49 Resp 20 07/07/24 07:49 BP 105/63 07/07/24 05:20 Pulse Ox 92 07/07/24 05:20 O2 Del Method Nasal Cannula 07/07/24 05:20 O2 Flow Rate 2 07/07/24 02:10 BMI result Body Mass Index 21.3 Alert oriented x3 no acute distress, no accessory muscles used, good air movement with minimal expiratory wheezes. DS: Data Data Completed and Pending Completed studies during hospitalization [Text1]: Procedures Assistance with Respiratory Ventilation, Less than 24 Consecutive Hours, Continuous Positive Airway Pressure (09/14/23) Labs on day of discharge: Laboratory Results - last 24 hr 07/06/24 07/06/24 20:57 21:13 WBC 9.9 RBC 4.21 L Hgb 13.7 L Hct 41.0 L MCV 97.4 MCH 32.5 MCHC 33.4 RDW 12.7 Plt Count 192 D MPV 9.2 L Immature Gran % (Auto) 0.2 Neut % (Auto) 56.5 Lymph % (Auto) 28.7 [place] % (Auto) 6.7 Eos % (Auto) 7.2 H Baso % (Auto) 0.7 Lymph # (Auto) 2.8 [place] # (Auto) 0.7 Eos # (Auto) 0.7 H Baso # (Auto) 0.1 Abs Immat Gran (auto) 0.02 Absolute Neuts (auto) 5.6 Absolute Nucleated RBC 0.000 Nucleated RBC % (auto) 0.0 VBG pH 7.44 H VBG pCO2 39 VBG pO2 37 VBG HCO3 27 H VBG O2 Saturation 62.0 VBG Base Excess 3.5 Sodium 138 Potassium 4.4 Chloride 106 Carbon Dioxide 24 Anion Gap 12 BUN 16 Creatinine 0.88 Estim Creat Clear Calc 101.8 Estimated GFR > 60 Random Glucose 107 Calcium 8.7 D Magnesium 3.1 H Total Bilirubin 0.4 AST 26 ALT 17 Alkaline Phosphatase 48 Troponin I High Sens < 2.7 Total Protein 6.7 Albumin 3.8 Lipase 6 L Influenza Type A (PCR) NEGATIVE Influenza Type B (PCR) NEGATIVE RSV RNA Qual (PCR) NEGATIVE SARS-CoV-2 RNA (RT-PCR) NEGATIVE Discharge Plan Discharge Anticipated Discharge Date/Time: 07/07/24 09:20 Patient Disposition: Home, Self-Care Discharge Diagnosis: asthma Referrals: Physician,Unknown J [Primary Care Provider] - 1 Week Discharge Medications: New doxycycline monohydrate 100 mg Capsule 100 mg PO Q12H Qty: 10 0RF prednisone 20 mg tablet 40 mg PO DAILY Qty: 10 0RF Continued (DME) nebulizers Mis See Rx Instructions .Route Qty: 1 0RF Rx Instructions: Use every 4 hours as needed for SOB, wheezing albuterol sulfate 90 mcg/actuation HFA aerosol inhaler 2 puff inhalation Q4-6H PRN (Reason: shortness of breath or wheezing) Qty: 3 4RF Trelegy Ellipta 200-62.5-25 mcg blister with device 1 inh inhalation DAILY Qty: 3 4RF albuterol sulfate 2.5 mg /3 mL (0.083 %) solution for nebulization 2.5 mg inhalation Q4-6H PRN (Reason: for wheezing) Qty: 150 3RF methadone [Methadose] 10 mg/mL Concentrate 58 mg PO DAILY Rx Instructions: Verified dose on 07/06/24 with [facility] [phone] montelukast 10 mg Tablet 10 mg PO BEDTIME fluticasone propionate [Allergy Relief (fluticasone)] 50 mcg/actuation spray,suspension 2 spray intranasal DAILY Rx Instructions: administer into each nostril Future refills considered AFTER blood work completed chlorhexidine gluconate 0.12 % mouthwash 15 ml PO NEEDED Eliquis 5 mg tablet 5 mg PO BID 90 Days Qty: 180 4RF Discharge Orders: Discharge Order (Routine); Ordered 07/07/24 Ordered By: Min Mccormick Diet: Advance to usual diet Activity on Discharge: As tolerated Stand Alone Forms: Patient Portal Discharge page Print Language: Sinhala Care Plan Goals: recovery Health Concerns: cocaine induced bronchospasms Plan of Treatment: 5 days prednisone and doxy, avoid all drugs Assessment: see above
[2024-07-07] MEDS: methADONE HCl 20 MG/2 ML ORAL.CONC 58 MG PO (09:27)
[2024-07-07] MEDS: Famotidine 20 MG TABLET PO (09:29)
[2024-07-07] MEDS: methylPREDNISolone Sod Succ 40 MG/ML VIAL IVPUSH (09:29)
[2024-07-07] MEDS: Apixaban 5 MG TABLET PO (09:29)
[2024-07-07 10:01] VITALS: BP 117/65; PULSE 80; RESP 19; TEMP 37; O2SAT 97
[2024-07-07] MEDS: Fluticasone/Umeclidinium/Vilanterol 200/62.5/25 BLST.W.DEV 1 PUFF INHALE (10:01)
--- NOTE | 2024-07-07 10:27 | MHC.CM.PN ---
PT REPORTS HE LIVES WITH HIS S/O AND IS INDEPENDENT WITH CARE HE HAS HOME O2 FROM [facility] HE USES PRN HE IS ACTIVE WITH [facility] FOR MAT PT DOES NOT HAVE A PCP, HE SAYS HE KNOWS WHO HE WILL HAVE, BUT IS WAITING FOR INS TO CHANGE REFUSES HCP PT WILL DC HOME TODAY VIA [facility]SP[facility]
== END 2024-07-07 09:56 | disposition home or self-care (01) | DRG 140 ==
LOC: HO.ED 07-07 04:26 → HO.EDOVER 07-07 05:08
PROVIDERS: Admitting Provider Hospitalist; Emergency Provider Emergency Medicine; Visit Provider Internal Medicine
DX: J44.1 Chronic obstructive pulmonary disease with (acute) exacerbation (principal); J96.01 Acute respiratory failure with hypoxia; F11.20 Opioid dependence, uncomplicated; J45.41 Moderate persistent asthma with (acute) exacerbation; F19.10 Other psychoactive substance abuse, uncomplicated; Z20.822 Contact with and (suspected) exposure to COVID-19; Z86.711 Personal history of pulmonary embolism; Z79.01 Long term (current) use of anticoagulants; Z87.891 Personal history of nicotine dependence; Z79.51 Long term (current) use of inhaled steroids; Z79.899 Other long term (current) drug therapy
CPT/HCPCS: 0241U; 71045; 80053; 82803; 83690; 83735; 84484; 85025; 94640; 99219; 99285; J2919

== ENCOUNTER → 2024-07-06 21:10 | Outpatient (BNV) | payer OTHER, SELFPAY | PROVIDERS: Visit Provider Radiology Diagnostic Radiology | DX: R06.00 Dyspnea, unspecified (principal) | CPT/HCPCS: 71045 ==

== ENCOUNTER → 2024-07-07 05:03 | Outpatient (BNV) | payer OTHER, SELFPAY | PROVIDERS: Admitting Provider Hospitalist; Emergency Provider Emergency Medicine; Visit Provider Hospitalist | DX: J45.901 Unspecified asthma with (acute) exacerbation (principal) | CPT/HCPCS: 99234; 99499 ==

== ENCOUNTER → 2024-07-31 07:23 | Outpatient (BNV) | payer OTHER, SELFPAY | PROVIDERS: Admitting Provider Internal Medicine; Emergency Provider Student in an Organized Health Care Education/Training Program; Visit Provider Internal Medicine | DX: R00.0 Tachycardia, unspecified (principal) | CPT/HCPCS: 93010 ==

== ENCOUNTER 2024-07-31 11:34 | Inpatient (IN) | payer OTHER, SELFPAY ==
[2024-07-31] VITALS (9 sets, daily range): BP systolic 98–146; BP diastolic 58–90; PULSE 93–120; RESP 16–23; TEMP 36.4–36.8; O2SAT 90–98; BMI 18.1; BMI 17.5
--- NOTE | ~2024-07-31 | XR_ITS ---
EXAMINATION: XR CHEST CLINICAL INFORMATION: sob COMPARISON: 07/06/2024. TECHNIQUE: Frontal view of the chest was obtained. FINDINGS: The cardiac, hilar, and mediastinal contours are normal. The lungs are somewhat hyperaerated diffusely, however clear bilaterally. No pneumothorax or effusion. No focal osseous or soft tissue abnormality. XR/XR chest 1V IMPRESSION: COPD. No active superimposed disease. Electronically signed by: Shiraz Mcclendon MD 07/31/2024 12:41 PM EDT
--- NOTE | 2024-07-31 07:23 | ECG_ITS ---
Test Reason : SOB Blood Pressure : */* mmHG Vent. Rate : 111 BPM Atrial Rate : 111 BPM P-R Int : 146 ms QRS Dur : 60 ms QT Int : 320 ms P-R-T Axes : 77 92 74 degrees QTcB Int : 435 ms Sinus tachycardia Rightward axis Anteroseptal infarct , age undetermined Abnormal ECG When compared with ECG of 22-Jun-2024 04:20, No significant change was found Referred By: Generic ED Physician Electronically Signed By: ANA JO
[2024-07-31 12:12] LABS: MANUAL DIFF FLAG NO
[2024-07-31 12:15] LABS: Basophils Absolute Auto 0.1 X10*3/uL (0.0-0.2); Basophils Percent Auto 0.8 % (0-2); Eosinophils Absolute Auto 0.7 X10*3/uL (0.0-0.4); Eosinophils Percent Auto 9.3 % (0-4); Hematocrit 40.2 % (42.0-52.0); Hemoglobin 13.7 g/dl (14.0-18.0); Imm Gran Abs Auto 0.02 X10*3/uL (0.00-0.03); Imm Gran Pct Auto 0.3 % (0.0-0.4); Lymphocytes Absolute Auto 1.9 X10*3/uL (1.2-4.9); Lymphocytes Percent Auto 24.1 % (20-40); Mean Corpuscular HGB Conc 34.1 g/dl (31.0-36.0); Mean Corpuscular Hemoglobin 32.9 pg (27.0-33.0); Mean Corpuscular Volume 96.4 fL (80.0-98.0); Mean Platelet Volume 9.6 fL (9.4-12.4); Monocytes Absolute Auto 0.5 X10*3/uL (0.1-1.2); Monocytes Percent Auto 5.8 % (2-11); Neutrophils Absolute Auto 4.8 x10*3/uL (2.0-8.3); Neutrophils Percent Auto 59.7 % (45-73); Platelet Count 228 X10*3/uL (160-400); Red Blood Count 4.17 X10*6/uL (4.60-5.80); Red Cell Distribution Width 12.3 % (11.0-16.0); White Blood Count 7.9 X10*3/uL (4.8-10.8)
[2024-07-31 12:18] LABS: Venous Blood Gas Refer to POC result
[2024-07-31 12:19] LABS: VBG Base Excess 3.5 mmol/L; VBG HCO3 31 mmol/L (22-26); VBG pCO2 62 mmHg; VBG pO2 37 mmHg
[2024-07-31] MEDS: levalbuterol HCL 1.25 MG/3 ML VIAL.NEB 2.5 MG INHALE (12:25)
[2024-07-31 12:26] LABS: Anion Gap 15 (12-20); Blood Urea Nitrogen 23 mg/dL (9-16); Calcium 9.3 mg/dL (8.4-10.2); Carbon Dioxide 25 mmol/L (22-29); Chloride 105 mmol/L (96-108); Creatinine Clr Calc Pharmacy 84.9; Estimated Glomerular Filt Rate > 60; Glucose Random 114 mg/dL (60-115); Potassium 4.1 mmol/L (3.3-5.1); Sodium 141 mmol/L (135-145)
--- NOTE | 2024-07-31 12:27 | ED.GENADULT ---
HPI - General Adult General Chief complaint: Dyspnea Stated complaint: SOB,94% ,DUONEB 100% PER EMS Time Seen by Provider: 07/31/24 11:37 Source: patient and EMS Mode of arrival: EMS Limitations: no limitations History of Present Illness ED Provider: Alvino ABBOTT narrative: 49-year-old with past medical history of PE on Eliquis, COPD/asthma presenting for shortness of breath. Patient states that yesterday he began experiencing short of breath and called his PCP who prescribed prednisone. Today his symptoms worsen any called EMS. Upon arrival EMS found him to be hypoxic with improvement to 94% after he was placed on 5 L. He was given methylprednisone, magnesium and a DuoNeb in transport. Patient arrived to the ED reporting improvement in symptoms. He also endorses productive cough with clear sputum however denies fevers, chills, chest pain. Related Data Home Medications ?Medication ?Instructions ?Recorded ?Confirmed methadone 10 mg/mL oral 58 mg PO DAILY 04/18/23 07/07/24 concentrate (Methadose) fluticasone propionate 50 2 spray intranasal DAILY Allergy 06/22/24 07/07/24 mcg/actuation nasal Symptoms spray,suspension (Allergy Relief (fluticasone)) montelukast 10 mg tablet 10 mg PO BEDTIME 06/22/24 07/07/24 chlorhexidine gluconate 0.12 % 15 ml PO NEEDED 07/07/24 07/07/24 mouthwash Previous Rx's ?Medication ?Instructions ?Recorded nebulizers #1 ea 11/26/20 apixaban 5 mg tablet (Eliquis) 5 mg PO BID 90 days #180 tabs 04/01/24 albuterol sulfate 90 mcg/actuation 2 puff inhalation Q4-6H PRN 04/10/24 aerosol inhaler shortness of breath or wheezing #3 ea albuterol sulfate 2.5 mg/3 mL 2.5 mg (3 mL) inhalation Q4-6H PRN 05/30/24 (0.083 %) solution for nebulization for wheezing #150 mL doxycycline monohydrate 100 mg 100 mg PO Q12H #10 caps 07/07/24 capsule fluticasone furoate 200 1 inh inhalation DAILY #3 ea 07/07/24 mcg-vilanterol 25 mcg/dose inhalation powder (Breo Ellipta) prednisone 20 mg tablet 40 mg (2 x 20 mg) PO DAILY #10 tabs 07/07/24 Allergies Allergy/AdvReac Type Severity Reaction Status Date / Time walnut Allergy Unknown SWELLING Verified 07/31/24 11:49 buprenorphine [From Suboxone] Allergy swelling Verified 07/31/24 11:49 in his hands and rash naloxone [From Suboxone] Allergy swelling Verified 07/31/24 11:49 in his hands and rash NSAIDS/ASA Allergy Unknown unknown Uncoded 07/31/24 11:49 walnuts Allergy Unknown anaphylaxis Uncoded 07/31/24 11:49 Review of Systems Review of Systems: Yes all other systems are reviewed and are negative PMFSH Past Medical History Medical History Acute on chronic respiratory failure with hypoxia and hypercapnia Inhales drugs Heroin use Allergic asthma with status asthmaticus Moderate persistent asthma with exacerbation Opiate abuse, episodic Left against medical advice Lung problems from crack cocaine Chronic lung disease Asthma Pulmonary emboli Family History Family History Other Family history non-contributory Social History Social History Household Members: Significant Other Housing: House Do you presently have visiting nurse or other home services: No Unable to assess alcohol history related to: Unable to respond Alcohol intake: never Patient Tobacco Use Status: Former Tobacco user Tobacco use type: Cigarette Cigarettes Per Day: 1 Smoked in Last 30 Days: Yes e-Cigarette/Vaping Use: Never Used Second Hand Smoke Exposure: No Substance Use Type: Heroin Advance Directives: Yes Advance Directives on File: Yes Advance Directives Date on File: 06/22/24 service: No Current occupational status: unemployed Cognitive needs: No Hearing needs: No Vision needs: No Physical Exam ED Vital Signs: Vital Signs - 24 hr 07/31/24 11:47 07/31/24 12:19 07/31/24 12:21 Pulse Rate 107 H 104 H Respiratory Rate 23 H 16 Blood Pressure 112/76 Pulse Oximetry 95 92 Oxygen Delivery Method Room Air Nasal Cannula Oxygen Flow Rate 3 BMI result Body Mass Index 18.1 Well-appearing male in no acute distress Normal inspection cognition Bilateral wheezing auscultated with diminished lower left feel Normal S1-S2 tachycardic No lower extremity edema appreciated Medications Administered Discontinued Medications Generic Name Dose Route Start Last Admin Trade Name Ulicesq PRN Reason Stop Dose Admin Ceftriaxone Sodium 1 gm 07/31/24 12:33 07/31/24 12:58 Ceftriaxone Sodium 1 Gm Vial IVPUSH 07/31/24 12:34 1 gm ONCE ONE Administration Doxycycline Monohydrate 100 mg 07/31/24 12:33 07/31/24 12:58 Doxycycline Monohydrate 100 Mg Capsule PO 07/31/24 12:34 100 mg ONCE ONE Administration Levalbuterol HCl 2.5 mg 07/31/24 12:19 07/31/24 12:25 Levalbuterol Hcl 1.25 Mg/3 Ml Vial.Neb INHALE 07/31/24 12:20 2.5 mg ONCE ONE Administration Medical Decision Making Medical Decision Making [facility] Narrative: 49-year-old male presenting for shortness of breath -I am concerned for the following; COPD exacerbation, asthma exacerbation, viral URI, COVID, flu, pneumonia -labs and imaging studies ordered -ED bronch protocol ordered My independent interpretation of labs and imaging: - stable H&H, no white count, normal blood gas - normal lactic acid - EKG showed sinus tach, no ST elevations, normal QTC - small opacity in right lower lung; however radiology notes COPD with no active superimposed disease Antibiotics were given Mildly improved wheezing on reassessment Patient admitted to medicine Lab Data 07/31/24 12:06 07/31/24 12:06 Labs: Lab Results 07/31/24 07/31/24 Range/Units 12:06 12:12 WBC 7.9 (4.8-10.8) X10*3/uL RBC 4.17 L (4.60-5.80) X10*6/uL Hgb 13.7 L (14.0-18.0) g/dl Hct 40.2 L (42.0-52.0) % MCV 96.4 (80.0-98.0) fL MCH 32.9 (27.0-33.0) pg MCHC 34.1 (31.0-36.0) g/dl RDW 12.3 (11.0-16.0) % Plt Count 228 (160-400) X10*3/uL MPV 9.6 (9.4-12.4) fL Immature Gran % (Auto) 0.3 (0.0-0.4) % Neut % (Auto) 59.7 (45-73) % Lymph % (Auto) 24.1 (20-40) % [place] % (Auto) 5.8 (2-11) % Eos % (Auto) 9.3 H (0-4) % Baso % (Auto) 0.8 (0-2) % Lymph # (Auto) 1.9 (1.2-4.9) X10*3/uL [place] # (Auto) 0.5 (0.1-1.2) X10*3/uL Eos # (Auto) 0.7 H (0.0-0.4) X10*3/uL Baso # (Auto) 0.1 (0.0-0.2) X10*3/uL Abs Immat Gran (auto) 0.02 (0.00-0.03) X10*3/uL Absolute Neuts (auto) 4.8 (2.0-8.3) x10*3/uL Absolute Nucleated RBC 0.000 (0.0-0.012) X10*3/uL Nucleated RBC % (auto) 0.0 (0.0-0.2) /100WBC VBG pH 7.30 L (7.32-7.43) VBG pCO2 62 mmHg VBG pO2 37 mmHg VBG HCO3 31 H (22-26) mmol/L VBG O2 Saturation 50.0 % VBG Base Excess 3.5 mmol/L Sodium 141 (135-145) mmol/L Potassium 4.1 (3.3-5.1) mmol/L Chloride 105 (96-108) mmol/L Carbon Dioxide 25 (22-29) mmol/L Anion Gap 15 (12-20) BUN 23 H (9-16) mg/dL Creatinine 0.87 (0.5-1.4) mg/dL Estim Creat Clear Calc 84.9 Estimated GFR > 60 Random Glucose 114 (60-115) mg/dL Lactic Acid 1.7 (0.5-2.0) mmol/L Calcium 9.3 D (8.4-10.2) mg/dL Discharge Plan Discharge Clinical Impression: COPD exacerbation Patient Disposition: Admitted As Inpatient Print Language: Guamanian
[2024-07-31 12:28] LABS: Lactic Acid 1.7 mmol/L (0.5-2.0)
[2024-07-31] MEDS: Doxycycline Monohydrate 100 MG CAPSULE PO (12:58)
[2024-07-31] MEDS: cefTRIAXone sodium 1 GM VIAL IVPUSH (12:58)
--- NOTE | 2024-07-31 13:44 | PM.IMHP ---
History of Present Illness Date of Service: 07/31/24 Chief Complaint: sob 49M PMH COPD/severe persistent asthma with p.r.n. oxygen at home, cocaine dependence, pulmonary embolism, opiate dependence presented with shortness of breath. Patient states that in the last use cocaine 2 days prior to presentation. Has been having worsening shortness of breath. Called his car shagger who prescribed prednisone was not be able to pick it up yet. Was having increased wheezing, noted to be hypoxic to mid 80s so he came to the ED. in ED requiring 3 L oxygen, chest x-ray unremarkable other than underlying COPD. Denies fever, chills, abdominal pain, nausea vomiting. Review of Systems Review of Systems: Yes all other systems are reviewed and are negative [facility] Medical History Acute on chronic respiratory failure with hypoxia and hypercapnia Inhales drugs Heroin use Allergic asthma with status asthmaticus Moderate persistent asthma with exacerbation Opiate abuse, episodic Left against medical advice Lung problems from crack cocaine Chronic lung disease Asthma Pulmonary emboli Family History Other Family history non-contributory Social History Household Members: Significant Other Housing: House Do you presently have visiting nurse or other home services: No Unable to assess alcohol history related to: Unable to respond Alcohol intake: never Patient Tobacco Use Status: Former Tobacco user Tobacco use type: Cigarette Cigarettes Per Day: 1 Smoked in Last 30 Days: Yes e-Cigarette/Vaping Use: Never Used Second Hand Smoke Exposure: No Substance Use Type: Heroin Advance Directives: Yes Advance Directives on File: Yes Advance Directives Date on File: 06/22/24 service: No Current occupational status: unemployed Cognitive needs: No Hearing needs: No Vision needs: No Meds Allergies Allergy/AdvReac Type Severity Reaction Status Date / Time walnut Allergy Unknown SWELLING Verified 07/31/24 11:49 buprenorphine [From Suboxone] Allergy swelling Verified 07/31/24 11:49 in his hands and rash naloxone [From Suboxone] Allergy swelling Verified 07/31/24 11:49 in his hands and rash NSAIDS/ASA Allergy Unknown unknown Uncoded 07/31/24 11:49 walnuts Allergy Unknown anaphylaxis Uncoded 07/31/24 11:49 Active Medications: Current Medications Albuterol/Ipratropium (Albuterol/Iprat 2.5/0.5mg 3 Ml Ampul.Neb) 3 ml INHALE RQ4H WHILE AWAKE PRN PRN Reason: sob Methylprednisolone Sodium Succinate (Methylprednisolone Sod Succ 40 Mg/Ml Vial) 40 mg IVPUSH Q12H [facility] Home Medications ?Medication ?Instructions ?Recorded ?Confirmed ?Last Taken ?Type methadone 10 mg/mL oral 58 mg PO DAILY 04/18/23 07/07/24 07/06/24 History concentrate (Methadose) fluticasone propionate 50 2 spray intranasal DAILY Allergy 06/22/24 07/07/24 07/06/24 History mcg/actuation nasal Symptoms spray,suspension (Allergy Relief (fluticasone)) montelukast 10 mg tablet 10 mg PO BEDTIME 06/22/24 07/07/24 07/06/24 History chlorhexidine gluconate 0.12 % 15 ml PO NEEDED 07/07/24 07/07/24 07/06/24 History mouthwash Physical Exam Vital Signs and Narrative: Vital Signs: Last Vital Signs Pulse 104 H 07/31/24 12:21 Resp 16 07/31/24 12:21 BP 112/76 07/31/24 12:21 Pulse Ox 92 07/31/24 12:21 O2 Del Method Nasal Cannula 07/31/24 12:21 O2 Flow Rate 3 07/31/24 12:21 BMI result Body Mass Index 18.1 General: AO X 3, acute distress Resp: wheezing bilateral, accessory muscles used CVS: S1,S2,RRR GI: soft, non tender, non distended Neuro: motor grossly intact, alert Psych: appropriate affect, appropriate insight Results Labs 07/31/24 12:06 07/31/24 12:06 Labs: Laboratory Results - last 24 hr 07/31/24 07/31/24 12:06 12:12 MCV 96.4 MCH 32.9 MCHC 34.1 RDW 12.3 Plt Count 228 MPV 9.6 Immature Gran % (Auto) 0.3 Neut % (Auto) 59.7 Lymph % (Auto) 24.1 [place] % (Auto) 5.8 Eos % (Auto) 9.3 H Baso % (Auto) 0.8 Lymph # (Auto) 1.9 [place] # (Auto) 0.5 Eos # (Auto) 0.7 H Baso # (Auto) 0.1 Abs Immat Gran (auto) 0.02 Absolute Neuts (auto) 4.8 Absolute Nucleated RBC 0.000 Nucleated RBC % (auto) 0.0 VBG pH 7.30 L VBG pCO2 62 VBG pO2 37 VBG HCO3 31 H VBG O2 Saturation 50.0 VBG Base Excess 3.5 Anion Gap 15 Estim Creat Clear Calc 84.9 Estimated GFR > 60 Random Glucose 114 Lactic Acid 1.7 Calcium 9.3 D Imaging Radiologist's Impressions: Impressions Chest X-Ray 07/31/24 12:10 IMPRESSION: COPD. No active superimposed disease. Electronically signed by: Shiraz Mcclendon MD 07/31/2024 12:41 PM EDT RP Assessment and Plan (1) Cocaine use: Status: Acute Plan 49M PMH COPD/severe persistent asthma with p.r.n. oxygen at home, cocaine dependence, pulmonary embolism, opiate dependence presented with shortness of breath Acute on chronic hypoxic and hypercapnic respiratory failure secondary to COPD/severe persistent asthma with acute decompensation due to cocaine use Steroids, DuoNebs, wean O2 as tolerated, Singulair, inhalers Patient educated about avoiding cocaine use History of pulmonary embolism Continue apixaban Opiate dependence Continue methadone once confirmed Full code Given degree of wheezing and shortness of breath as well as hypoxia and hypercapnia expected require at least 2 midnights inpatient Quality Stroke Does the patient have a stroke diagnosis?: No VTE Prior VTE?: Yes VTE Risk Level:: Medical - moderate - high VTE Device Contraindication: Treatment Not Indicated VTE Drug Contraindication: N/A - Med Ordered
[2024-07-31] MEDS: methylPREDNISolone Sod Succ 40 MG/ML VIAL IVPUSH (14:28)
[2024-07-31] MEDS: 0.9 % Sodium Chloride Flush 3 ML SYRINGE IVFLUSH ×2 (14:28→21:02)
--- OUTSIDE RECORDS SUMMARY | 2024-07-31 14:44 | XMS_ITS | Encounter Summary ---
Author Organization [employer] Address [address] [facility] [address] [place] [address] Care Team Providers Care Actuarial Intern Name Role Phone Unavailable Primary Care Provider Unavailabl e Reason for Visit * Reason Comments Med Refill Encounter Details Date Type Department Care Team (Late st Contact Info) Description 05/30/2024 Refill [facility] ADULT DENTAL [address] [place], [place] [phone] Lenora Fishman DDS [address] [place], [place] [phone] Social History Tobacco Use Types Packs/Day Years Used Date Smoking Tobacco: Former Cigarettes Sex and Gender Information Value Date Recorded Sex Assigned at Male 02/06/2022 10:39 AM EDT Legal Sex Male 10:39 AM EDT Gender Identity Male 02/06/2022 10:39 AM EDT Sexual Orientation Straight 02/06/2022 10 :39 AM EDT documented as of this encounter Miscellaneous Notes * Telephone Encounter - Lenora Fishman DDS - 05/30/2024 3:31 PM EST Approving, but needs appt for additional refills. documented in this encounter Plan of Treatment Not on file documented as of this encounter Visit Diagnoses Not on filedocumented in this encounter
--- OUTSIDE RECORDS SUMMARY | 2024-07-31 14:44 | XMS_ITS | Encounter Summary ---
Author Organization [employer] Address [address] [facility] [address] [place] [address] Care Team Providers Care Coil Connector Repairer Name Role Phone Unavailable Primary Care Provider Unavailabl e Reason for Visit * Reason Comments Med Refill Encounter Details Date Type Department Care Team (Late st Contact Info) Description 06/29/2024 Refill [facility] ADULT DENTAL [address] [place], [place] [phone] Lenora Fishman DDS [address] [place], [place] [phone] Social History Tobacco Use Types Packs/Day Years [...] Telephone Encounter - Lenora Fishman DDS - 06/30/2024 8:14 AM EDT Approving, but needs appt for additional refills. documented in this encounter Plan of Treatment Not on file documented as of this encounter Visit Diagnoses Not on filedocumented in this encounter
--- OUTSIDE RECORDS SUMMARY | 2024-07-31 14:44 | XMS_ITS | Encounter Summary ---
Author Organization [employer] Address [address] [facility] [address] [place] [address] Care Team Providers Care Gold Burnisher Name Role Phone Unavailable Primary Care Provider Unavailabl e Reason for Visit * Reason Comments Med Refill Encounter Details Date Type Department Care Team (Late st Contact Info) Description 04/05/2024 Refill [facility] ADULT DENTAL [address] [place], [place] [phone] Lenora Fishman DDS [address] [place], [place] [phone] Social History Tobacco Use Types Packs/Day Years Used Date Smoking Tobacco: Former Cigarettes Sex and Gender Information Value Date Recorded Sex Assigned at Male 02/06/2022 10:39 AM EDT Legal Sex Male 10:39 AM EDT Gender Identity Male 02/06/2022 10:39 AM EDT Sexual Orientation Straight 02/06/2022 10 :39 AM EDT documented as of this encounter Miscellaneous Notes * Telephone Encounter - Irineo Harris DDS - 04/07/2024 8:04 AM EST Approving, but needs appt for additional refills. documented in this encounter Plan of Treatment Not on file documented as of this encounter Visit Diagnoses Not on filedocumented in this encounter
--- OUTSIDE RECORDS SUMMARY | 2024-07-31 14:44 | XMS_ITS | Encounter Summary ---
Author Organization [employer] Address [address] [facility] [address] [place] [address] Care Team Providers Care Medical Education Coordinator Name Role Phone Unavailable Primary Care Provider Unavailabl e Reason for Visit * Reason Comments Med Refill Encounter Details Date Type Department Care Team (Late st Contact Info) Description 07/21/2024 Refill [facility] ADULT DENTAL [address] [place], [place] [phone] Lenora Fishman, DDS [address] [place], [place] [phone] Social History Tobacco Use Types Packs/Day Years Used Date Smoking Tobacco: Former Cigarettes Sex and Gender Information Value Date Recorded Sex Assigned at Male 02/06/2022 10:39 AM EDT Legal Sex Male 10:39 AM EDT Gender Identity Male 02/06/2022 10:39 AM EDT Sexual Orientation Straight 02/06/2022 10 :39 AM EDT documented as of this encounter Miscellaneous Notes * Telephone Encounter - Abelino López DMD - 07/21/2024 1:06 PM EDT Approving, but needs appt for additional refills. documented in this encounter Plan of Treatment Not on file documented as of this encounter Visit Diagnoses Not on filedocumented in this encounter
--- OUTSIDE RECORDS SUMMARY | 2024-07-31 14:44 | XMS_ITS | Encounter Summary ---
Author Organization [employer] Address [address] [facility] [address] [place] [address] Care Team Providers Care Filling Station Laborer Name Role Phone Unavailable Primary Care Provider Unavailabl e Reason for Visit * Reason Comments Med Refill Encounter Details Date Type Department Care Team (Late st Contact Info) Description 05/30/2024 Refill [facility] ADULT DENTAL [address] [place], [place] [phone] Irineo Harris DDS [address] [place], [place] [phone] Social History Tobacco Use Types Packs/Day Years Used Date Smoking Tobacco: Former Cigarettes Sex and Gender Information Value Date Recorded Sex Assigned at Male 02/06/2022 10:39 AM EDT Legal Sex Male 10:39 AM EDT Gender Identity Male 02/06/2022 10:39 AM EDT Sexual Orientation Straight 02/06/2022 10 :39 AM EDT documented as of this encounter Plan of Treatment Not on file documented as of this encounter Visit Diagnoses Not on filedocumented in this encounter
[2024-07-31 14:58] LABS: Influenza A PCR NEGATIVE (Negative); Influenza B PCR NEGATIVE (Negative); Resp Syncy Virus RNA Qual PCR NEGATIVE (Negative); SARS COV2 PCR INHOUSE NEGATIVE (Negative)
--- NOTE | 2024-07-31 15:13 | PHA.MEDREC ---
Addendum entered by Robby Matias 07/31/24 15:18: reviewed Original Note: Pharmacy Consult ? Medication Reconciliation Pharmacy has completed the medication reconciliation. Spoke with patient and he confirmed his medications. Patient confirmed his Methadone 58mg dose once a day and confirmed he gets it from the [facility] in [place] and he last took it yesterday.
--- NOTE | 2024-07-31 16:21 | PC.NURSE ---
Methadone dose verified with Bryanna at [facility]. patient last at clinic 07/30 and received 6 take home bottles of methadone.
--- NOTE | 2024-07-31 16:56 | HE.PHANOTE ---
METHADONE CONFIRMATION FORM PATIENT TAKES 58 MG LAST DOSE 07/30 AT 0900
[2024-07-31] MEDS: methADONE HCl 20 MG/2 ML ORAL.CONC 58 MG PO (17:50)
[2024-07-31] MEDS: Albuterol/Iprat 2.5/0.5MG 3 ML AMPUL.NEB INHALE ×2 (19:37→23:13)
[2024-07-31] MEDS: Apixaban 5 MG TABLET PO (21:02)
[2024-07-31] MEDS: Montelukast Sodium 10 MG TABLET PO (21:02)
[2024-08-01] VITALS (7 sets, daily range): BP systolic 101–114; BP diastolic 61–73; PULSE 76–98; RESP 16–20; TEMP 36.2–36.9; O2SAT 92–96; BMI 17.5
[2024-08-01] MEDS: methylPREDNISolone Sod Succ 40 MG/ML VIAL IVPUSH ×2 (02:19→14:37)
[2024-08-01 07:15] LABS: Anion Gap 13 (12-20); Blood Urea Nitrogen 17 mg/dL (9-16); Calcium 9.2 mg/dL (8.4-10.2); Carbon Dioxide 24 mmol/L (22-29); Chloride 106 mmol/L (96-108); Estimated Glomerular Filt Rate > 60; Glucose Random 125 mg/dL (60-115); Potassium 4.3 mmol/L (3.3-5.1); Sodium 139 mmol/L (135-145)
[2024-08-01 07:21] LABS: Hematocrit 38.5 % (42.0-52.0); Hemoglobin 12.8 g/dl (14.0-18.0); Mean Corpuscular HGB Conc 33.2 g/dl (31.0-36.0); Mean Corpuscular Hemoglobin 31.8 pg (27.0-33.0); Mean Corpuscular Volume 95.5 fL (80.0-98.0); Mean Platelet Volume 10.4 fL (9.4-12.4); Platelet Count 226 X10*3/uL (160-400); Red Blood Count 4.03 X10*6/uL (4.60-5.80); White Blood Count 10.6 X10*3/uL (4.8-10.8)
[2024-08-01] MEDS: Albuterol/Iprat 2.5/0.5MG 3 ML AMPUL.NEB INHALE ×4 (07:55→18:33)
[2024-08-01] MEDS: 0.9 % Sodium Chloride Flush 3 ML SYRINGE IVFLUSH ×2 (07:57→14:37)
[2024-08-01] MEDS: Apixaban 5 MG TABLET PO ×2 (08:05→20:13)
[2024-08-01] MEDS: methADONE HCl 20 MG/2 ML ORAL.CONC 58 MG PO (08:05)
--- NOTE | 2024-08-01 09:39 | P.PNIM_ITS ---
Subjective Subjective Date of Service: 08/01/24 Interval History: better but still very wheezy Physical Exam 2 Vital Signs: Vital Signs: Last Vital Signs Temp 97.1 F 08/01/24 07:44 Pulse 80 08/01/24 07:44 Resp 16 08/01/24 07:44 BP 114/72 08/01/24 07:44 Pulse Ox 96 08/01/24 07:44 O2 Del Method Nasal Cannula 08/01/24 07:44 O2 Flow Rate 2 08/01/24 07:44 BMI result Body Mass Index 17.5 General: AO X 3, no acute distress Resp: wheezing bilateral, no accessory muscles used CVS: S1,S2,RRR GI: soft, non tender, non distended Neuro: motor grossly intact, alert Psych: appropriate affect, appropriate insight Objective Data Active Medications Acetaminophen (Acetaminophen 325 Mg Tablet) 650 mg PO Q6H PRN PRN Reason: Pain, Mild 1-3,fever,headache Albuterol/Ipratropium (Albuterol/Iprat 2.5/0.5mg 3 Ml Ampul.Neb) 3 ml INHALE RQ4H WHILE AWAKE [facility] Last Admin: 08/01/24 07:30 Dose: Not Given Documented By: ANTONY Non-Admin Reason: Patient Asleep Albuterol/Ipratropium (Albuterol/Iprat 2.5/0.5mg 3 Ml Ampul.Neb) 3 ml INHALE RQ4H WHILE AWAKE PRN PRN Reason: Shortness of Breath Last Admin: 08/01/24 07:55 Dose: 3 ml Documented By: MONICA Apixaban (Apixaban 5 Mg Tablet) 5 mg PO BID [facility] Last Admin: 08/01/24 08:05 Dose: 5 mg Documented By: MONICA Calcium Carbonate (Calcium Carbonate 750 Mg Tab.Chew) 750 mg PO Q4H PRN PRN Reason: Heartburn Fluticasone/Vilanterol (Fluticasone/Vilanterol 200/25 Blst.W.Dev) 1 puff INHALE RDAILY [facility] Last Admin: 08/01/24 07:30 Dose: Not Given Documented By: ANTONY Non-Admin Reason: See Note Comments: pharmacy called for med Magnesium Hydroxide (Milk Of Magnesia 30 Ml Oral.Susp) 30 ml PO DAILY PRN PRN Reason: Constipation Melatonin (Melatonin 3 Mg Tablet) 6 mg PO BEDTIME PRN PRN Reason: Insomnia Methadone HCl (Methadone Hcl 20 Mg/2 Ml Oral.Conc) 58 mg PO DAILY@0800 [facility] Last Admin: 08/01/24 08:05 Dose: 58 mg Documented By: MONICA Co-signed By: LEILA Methylprednisolone Sodium Succinate (Methylprednisolone Sod Succ 40 Mg/Ml Vial) 40 mg IVPUSH Q12H [facility] Last Admin: 08/01/24 02:19 Dose: 40 mg Documented By: EMEKA Montelukast Sodium (Montelukast Sodium 10 Mg Tablet) 10 mg PO BEDTIME [facility] Last Admin: 07/31/24 21:02 Dose: 10 mg Documented By: EMEKA Sodium Chloride (0.9 % Sodium Chloride Flush 3 Ml Syringe) 3 ml IVFLUSH QSHIFT [facility] Last Admin: 08/01/24 07:57 Dose: 3 ml Documented By: MONICA Labs 08/01/24 05:33 08/01/24 05:33 Labs: Laboratory Results - last 24 hr 07/31/24 07/31/24 07/31/24 12:06 12:12 14:04 MCV 96.4 MCH 32.9 MCHC 34.1 RDW 12.3 Plt Count 228 MPV 9.6 Immature Gran % (Auto) 0.3 Neut % (Auto) 59.7 Lymph % (Auto) 24.1 [place] % (Auto) 5.8 Eos % (Auto) 9.3 H Baso % (Auto) 0.8 Lymph # (Auto) 1.9 [place] # (Auto) 0.5 Eos # (Auto) 0.7 H Baso # (Auto) 0.1 Abs Immat Gran (auto) 0.02 Absolute Neuts (auto) 4.8 Absolute Nucleated RBC 0.000 Nucleated RBC % (auto) 0.0 VBG pH 7.30 L VBG pCO2 62 VBG pO2 37 VBG HCO3 31 H VBG O2 Saturation 50.0 VBG Base Excess 3.5 Anion Gap 15 Estim Creat Clear Calc 84.9 Estimated GFR > 60 Random Glucose 114 Lactic Acid 1.7 Calcium 9.3 D Influenza Type A (PCR) NEGATIVE Influenza Type B (PCR) NEGATIVE RSV RNA Qual (PCR) NEGATIVE SARS-CoV-2 RNA (RT-PCR) NEGATIVE 08/01/24 05:33 MCV 95.5 MCH 31.8 MCHC 33.2 RDW 12.0 Plt Count 226 MPV 10.4 Immature Gran % (Auto) Neut % (Auto) Lymph % (Auto) [place] % (Auto) Eos % (Auto) Baso % (Auto) Lymph # (Auto) [place] # (Auto) Eos # (Auto) Baso # (Auto) Abs Immat Gran (auto) Absolute Neuts (auto) Absolute Nucleated RBC 0.000 Nucleated RBC % (auto) 0.0 VBG pH VBG pCO2 VBG pO2 VBG HCO3 VBG O2 Saturation VBG Base Excess Anion Gap 13 Estim Creat Clear Calc 99.0 Estimated GFR > 60 Random Glucose 125 H Lactic Acid Calcium 9.2 Influenza Type A (PCR) Influenza Type B (PCR) RSV RNA Qual (PCR) SARS-CoV-2 RNA (RT-PCR) Assessment and Plan (1) Cocaine use: Status: Acute Plan 49M PMH COPD/severe persistent asthma with p.r.n. oxygen at home, cocaine dependence, pulmonary embolism, opiate dependence presented with shortness of breath Acute on chronic hypoxic and hypercapnic respiratory failure secondary to COPD/severe persistent asthma with acute decompensation due to cocaine use Steroids, DuoNebs, wean O2 as tolerated, Singulair, inhalers Patient educated about avoiding cocaine use History of pulmonary embolism Continue apixaban Opiate dependence Continue methadone Full code reason for continued hospitalization:hypoxia Quality Stroke Does the patient have a stroke diagnosis?: No VTE Prior VTE?: Yes VTE Risk Level:: Medical - moderate - high VTE Device Contraindication: Treatment Not Indicated VTE Drug Contraindication: N/A - Med Ordered
[2024-08-01] MEDS: guaiFENesin 200 MG/10 ML 10 ML LIQUID PO ×3 (10:55→20:13)
[2024-08-01] MEDS: Fluticasone/Vilanterol 200/25 BLST.W.DEV 1 PUFF INHALE (11:06)
--- NOTE | 2024-08-01 13:20 | MHC.CM.PN ---
PATIENT IS INDEPENDENT WITH ADLS LIVES WITH S.O. AND USES HOME O2 PRN. NO PCP AND PATIENT DOES NOT FEEL NEED TO ASSIGN HCP AGENT AT THIS TIME
--- NOTE | 2024-08-01 13:35 | MHC.CLN ---
NUTRITION DIET=REGULAR. ADDING ENSURE TID. PATIENT TAKES SUPPLEMENTS AT HOME. ENSURE TID PROVIDES 1050 KCALS, 60 G PROTEIN. NO REPORTED CONCERNS WITH APPETITE/INTAKE. QUALIFIES UNDERWEIGHT. APPEARS THIN BUT NOT MALNOURISHED. FOLLOW FOR PO INTAKE. SEE CLINICAL NUTRITION ASSESSMENT 08/01/24.
[2024-08-01] MEDS: Montelukast Sodium 10 MG TABLET PO (20:13)
[2024-08-02] VITALS (8 sets, daily range): BP systolic 104–113; BP diastolic 57–60; PULSE 70–98; RESP 17–22; TEMP 36–36.7; O2SAT 93–97
[2024-08-02] MEDS: 0.9 % Sodium Chloride Flush 3 ML SYRINGE IVFLUSH ×3 (01:53→20:14)
[2024-08-02] MEDS: methylPREDNISolone Sod Succ 40 MG/ML VIAL IVPUSH ×2 (01:53→13:28)
[2024-08-02] MEDS: guaiFENesin 200 MG/10 ML 10 ML LIQUID PO ×2 (01:56→08:15)
[2024-08-02] MEDS: Apixaban 5 MG TABLET PO ×2 (08:11→20:14)
[2024-08-02] MEDS: methADONE HCl 20 MG/2 ML ORAL.CONC 58 MG PO (08:11)
--- NOTE | 2024-08-02 10:03 | P.PNIM_ITS ---
Subjective Subjective Date of Service: 08/02/24 Interval History: better but still very wheezy Physical Exam 2 Vital Signs: Vital Signs: Last Vital Signs Temp 97.7 F 08/02/24 07:24 Pulse 70 08/02/24 07:24 Resp 17 08/02/24 07:24 BP 106/60 08/02/24 07:24 Pulse Ox 97 08/02/24 07:24 O2 Del Method Nasal Cannula 08/02/24 07:24 O2 Flow Rate 3 08/02/24 07:24 BMI result Body Mass Index 17.5 General: AO X 3, no acute distress Resp: wheezing bilateral, no accessory muscles used CVS: S1,S2,RRR GI: soft, non tender, non distended Neuro: motor grossly intact, alert Psych: appropriate affect, appropriate insight Objective Data Active Medications Acetaminophen (Acetaminophen 325 Mg Tablet) 650 mg PO Q6H PRN PRN Reason: Pain, Mild 1-3,fever,headache Albuterol/Ipratropium (Albuterol/Iprat 2.5/0.5mg 3 Ml Ampul.Neb) 3 ml INHALE RQ4H WHILE AWAKE [facility] Last Admin: 08/01/24 18:33 Dose: 3 ml Documented By: TINY Albuterol/Ipratropium (Albuterol/Iprat 2.5/0.5mg 3 Ml Ampul.Neb) 3 ml INHALE RQ4H WHILE AWAKE PRN PRN Reason: Shortness of Breath Last Admin: 08/01/24 07:55 Dose: 3 ml Documented By: MONICA Apixaban (Apixaban 5 Mg Tablet) 5 mg PO BID [facility] Last Admin: 08/02/24 08:11 Dose: 5 mg Documented By: NA Calcium Carbonate (Calcium Carbonate 750 Mg Tab.Chew) 750 mg PO Q4H PRN PRN Reason: Heartburn Fluticasone/Vilanterol (Fluticasone/Vilanterol 200/25 Blst.W.Dev) 1 puff INHALE RDAILY [facility] Last Admin: 08/01/24 11:06 Dose: 1 puff Documented By: ANTONY Guaifenesin (Guaifenesin 200 Mg/10 Ml 10 Ml Liquid) 10 ml PO Q4H PRN PRN Reason: Cough Last Admin: 08/02/24 08:15 Dose: 10 ml Documented By: NA Magnesium Hydroxide (Milk Of Magnesia 30 Ml Oral.Susp) 30 ml PO DAILY PRN PRN Reason: Constipation Melatonin (Melatonin 3 Mg Tablet) 6 mg PO BEDTIME PRN PRN Reason: Insomnia Methadone HCl (Methadone Hcl 20 Mg/2 Ml Oral.Conc) 58 mg PO DAILY@0800 [facility] Last Admin: 08/02/24 08:11 Dose: 58 mg Documented By: NA Co-signed By: LASHA Methylprednisolone Sodium Succinate (Methylprednisolone Sod Succ 40 Mg/Ml Vial) 40 mg IVPUSH Q12H [facility] Last Admin: 08/02/24 01:53 Dose: 40 mg Documented By: DOMITILA Montelukast Sodium (Montelukast Sodium 10 Mg Tablet) 10 mg PO BEDTIME [facility] Last Admin: 08/01/24 20:13 Dose: 10 mg Documented By: ROMERO Sodium Chloride (0.9 % Sodium Chloride Flush 3 Ml Syringe) 3 ml IVFLUSH QSHIFT [facility] Last Admin: 08/02/24 08:16 Dose: 3 ml Documented By: NA Labs 08/01/24 05:33 08/01/24 05:33 Assessment and Plan (1) Cocaine use: Status: Acute Plan 49M PMH COPD/severe persistent asthma with p.r.n. oxygen at home, cocaine dependence, pulmonary embolism, opiate dependence presented with shortness of breath Acute on chronic hypoxic and hypercapnic respiratory failure secondary to COPD/severe persistent asthma with acute decompensation due to cocaine use Steroids, DuoNebs, wean O2 as tolerated, Singulair, inhalers Patient educated about avoiding cocaine use History of pulmonary embolism Continue apixaban Opiate dependence Continue methadone Full code reason for continued hospitalization:hypoxia Quality Stroke Does the patient have a stroke diagnosis?: No VTE Prior VTE?: Yes VTE Risk Level:: Medical - moderate - high VTE Device Contraindication: Treatment Not Indicated VTE Drug Contraindication: N/A - Med Ordered
[2024-08-02] MEDS: Albuterol/Iprat 2.5/0.5MG 3 ML AMPUL.NEB INHALE ×3 (10:08→18:32)
[2024-08-02] MEDS: Montelukast Sodium 10 MG TABLET PO (20:14)
[2024-08-03] MEDS: methylPREDNISolone Sod Succ 40 MG/ML VIAL IVPUSH (01:53)
[2024-08-03] MEDS: guaiFENesin 200 MG/10 ML 10 ML LIQUID PO (03:58)
[2024-08-03 04:00] VITALS: BP 107/59; PULSE 73; RESP 17; TEMP 36.1; O2SAT 91
[2024-08-03 07:25] VITALS: BP 118/66; PULSE 80; RESP 16; TEMP 36.5; O2SAT 95
[2024-08-03] MEDS: Fluticasone/Vilanterol 200/25 BLST.W.DEV 1 PUFF INHALE (07:43)
[2024-08-03] MEDS: Albuterol/Iprat 2.5/0.5MG 3 ML AMPUL.NEB INHALE (07:43)
[2024-08-03 07:45] VITALS: PULSE 68; RESP 18; O2SAT 91
[2024-08-03] MEDS: methADONE HCl 20 MG/2 ML ORAL.CONC 58 MG PO (08:47)
[2024-08-03] MEDS: Apixaban 5 MG TABLET PO (08:47)
[2024-08-03] MEDS: 0.9 % Sodium Chloride Flush 3 ML SYRINGE IVFLUSH (08:48)
--- NOTE | 2024-08-03 09:02 | PM.DS ---
DS: Providers Provider Date of Service: 08/03/24 Date of admission: 07/31/24 13:43 Date of discharge: 08/03/24 Primary care physician: Unknown Physician DS: Diagnosis Discharge Diagnosis (1) Cocaine use: Status: Acute DS: Summary Hospital Course Hospital Course: from initial hpi: 49M PMH COPD/severe persistent asthma with p.r.n. oxygen at home, cocaine dependence, pulmonary embolism, opiate dependence presented with shortness of breath. Patient states that in the last use cocaine 2 days prior to presentation. Has been having worsening shortness of breath. Called his hazmat cdl a driver who prescribed prednisone was not be able to pick it up yet. Was having increased wheezing, noted to be hypoxic to mid 80s so he came to the ED. in ED requiring 3 L oxygen, chest x-ray unremarkable other than underlying COPD. Denies fever, chills, abdominal pain, nausea vomiting. hospital course: Patient was admitted for acute on chronic hypoxic and hypercapnic respiratory failure secondary to COPD/severe persistent asthma with acute decompensation due to cocaine use. Was treated with steroids, DuoNebs, Singulair. Symptoms improved with next several days and was weaned to room air. He will be discharged home on 5 more days of prednisone and continue to follow up with detox. For history of pulmonary embolism was continued on apixaban. For opiate dependence was continued on methadone. Time Attestation Discharge Coordination Time (in mins): 34 Quality: Safe Use of Opioids Does Pt have an Active Cancer Diagnosis on the Problem List?: No Quality: Stroke Does the patient have a stroke diagnosis?: No Physical Exam Vital Signs: Vital Signs: Last Vital Signs Temp 97.7 F 08/03/24 07:25 Pulse 68 08/03/24 07:45 Resp 18 08/03/24 07:45 BP 118/66 08/03/24 07:25 Pulse Ox 95 08/03/24 07:25 O2 Del Method Room Air 08/03/24 07:25 O2 Flow Rate 3 08/02/24 07:24 BMI result Body Mass Index 17.5 General: AO X 3, no acute distress Resp: improved wheezing bilateral, no accessory muscles used CVS: S1,S2,RRR GI: soft, non tender, non distended Neuro: motor grossly intact, alert Psych: appropriate affect, appropriate insight DS: Data Data Completed and Pending Completed studies during hospitalization [Text1]: Procedures Assistance with Respiratory Ventilation, Less than 24 Consecutive Hours, Continuous Positive Airway Pressure (09/14/23) Discharge Plan Discharge Anticipated Discharge Date/Time: 08/03/24 09:00 Patient Disposition: Home, Self-Care Discharge Diagnosis: copd Referrals: Physician,Unknown J [Primary Care Provider] - 1 Week Discharge Medications: New prednisone 20 mg tablet 40 mg PO DAILY Qty: 10 0RF Continued (DME) nebulizers Misc See Rx Instructions .Route Qty: 1 0RF Rx Instructions: Use every 4 hours as needed for SOB, wheezing albuterol sulfate 90 mcg/actuation HFA aerosol inhaler 2 puff inhalation Q4-6H PRN (Reason: shortness of breath or wheezing) Qty: 3 4RF albuterol sulfate 2.5 mg /3 mL (0.083 %) solution for nebulization 2.5 mg inhalation Q4-6H PRN (Reason: for wheezing) Qty: 150 3RF fluticasone furoate-vilanterol [Breo Ellipta] 200-25 mcg/dose blister with device 1 inh inhalation DAILY Qty: 3 4RF methadone [Methadose] 10 mg/mL Concentrate 58 mg PO DAILY Rx Instructions: Verified dose on 07/06/24 with [facility] [phone] montelukast 10 mg Tablet 10 mg PO BEDTIME PRN (Reason: Allergies) Eliquis 5 mg tablet 5 mg PO BID 90 Days Qty: 180 4RF Discharge Orders: Discharge Order (Routine); Ordered 08/03/24 Ordered By: Min Mccormick Diet: Advance to usual diet Activity on Discharge: As tolerated Stand Alone Forms: Patient Portal Discharge page Print Language: Maori Care Plan Goals: Recovery Health Concerns: Polysubstance dependence, COPD Plan of Treatment: Avoid all illicit drugs, 5 more days of prednisone Assessment: See above
--- NOTE | 2024-08-03 09:33 | MHC.CM.PN ---
p[t dcd home self care patrick booked for pt
== END 2024-08-03 09:31 | disposition home or self-care (01) | DRG 140 ==
LOC: HO.ED 13:40 → HO.EDOVER 13:48 → HO.S3 16:05
PROVIDERS: Admitting Provider Internal Medicine; Emergency Provider Student in an Organized Health Care Education/Training Program; Visit Provider Internal Medicine
DX: J44.1 Chronic obstructive pulmonary disease with (acute) exacerbation (principal); J96.21 Acute and chronic respiratory failure with hypoxia; Z99.81 Dependence on supplemental oxygen; F14.90 Cocaine use, unspecified, uncomplicated; F11.20 Opioid dependence, uncomplicated; J45.51 Severe persistent asthma with (acute) exacerbation; J96.22 Acute and chronic respiratory failure with hypercapnia; Z20.822 Contact with and (suspected) exposure to COVID-19; Z86.711 Personal history of pulmonary embolism; Z87.891 Personal history of nicotine dependence; Z79.01 Long term (current) use of anticoagulants; Z79.51 Long term (current) use of inhaled steroids; Z79.899 Other long term (current) drug therapy
CPT/HCPCS: 0241U; 36415; 71045; 80048; 82803; 83605; 85025; 85027; 93005; 94640; 99285; J0696; J2919

== ENCOUNTER → 2024-07-31 11:46 | Outpatient (BNV) | payer OTHER, SELFPAY | PROVIDERS: Emergency Provider Student in an Organized Health Care Education/Training Program; Visit Provider Radiology Diagnostic Radiology | DX: J44.9 Chronic obstructive pulmonary disease, unspecified (principal) | CPT/HCPCS: 71045 ==

== ENCOUNTER → 2024-07-31 13:43 | Outpatient (BNV) | payer OTHER, SELFPAY | PROVIDERS: Admitting Provider Internal Medicine; Emergency Provider Student in an Organized Health Care Education/Training Program; Visit Provider Internal Medicine | DX: F14.90 Cocaine use, unspecified, uncomplicated (principal) | CPT/HCPCS: 99223; 99232 ==

== ENCOUNTER → 2024-09-20 00:29 | Outpatient (BNV) | payer OTHER, SELFPAY | PROVIDERS: Visit Provider General Practice | DX: R06.00 Dyspnea, unspecified (principal) | CPT/HCPCS: 71045 ==

== ENCOUNTER 2024-09-20 01:19 | Inpatient (IN) | payer OTHER, SELFPAY ==
[2024-09-20] VITALS (24 sets, daily range): BP systolic 99–147; BP diastolic 54–98; PULSE 76–111; RESP 14–22; TEMP 36.6–37.2; O2SAT 3–100; BMI 22.6
--- NOTE | 2024-09-20 | ECG_ITS ---
Test Reason : DYSPNEA Blood Pressure : */* mmHG Vent. Rate : 93 BPM Atrial Rate : 93 BPM P-R Int : 150 ms QRS Dur : 84 ms QT Int : 348 ms P-R-T Axes : 87 67 90 degrees QTcB Int : 432 ms Normal sinus rhythm Right atrial enlargement Borderline ECG When compared with ECG of 31-Jul-2024 11:44, QRS duration has increased Criteria for Anteroseptal infarct are no longer Present Nonspecific T wave abnormality no longer evident in Anterior leads Referred By: Generic ED Physician Electronically Signed By: GENEVIEVE VANCE MD
--- NOTE | ~2024-09-20 | XR_ITS ---
CLINICAL HISTORY: dyspnea 1 view chest x-ray Comparison: CR/SR - XR CHEST 1V - 07/31/24 12:14 EDT Findings: No consolidation or effusion. Lungs are hyperexpanded and hyperlucent, emphysematous changes. Heart size is normal. No acute fracture. IMPRESSION: 1. No acute findings. This document has been electronically signed by: Jamin Mcgee MD, PHD on 09/20/2024 04:09:53
[2024-09-20] MEDS: Albuterol Sulfate 7.5 MG, Albuterol/Iprat 2.5/0.5MG 3 ML 3 ML INHALE (01:37)
--- NOTE | 2024-09-20 01:48 | PC.NURSE ---
RT at the bedside
[2024-09-20] MEDS: Albuterol Sulfate 5 MG, Albuterol Sulfate (0.083%) 2.5 MG 7.5 MG INHALE (01:54)
[2024-09-20 02:14] LABS: MANUAL DIFF FLAG NO
[2024-09-20 02:17] LABS: Basophils Percent Auto 0.4 % (0-2); Eosinophils Absolute Auto 0.8 X10*3/uL (0.0-0.4); Eosinophils Percent Auto 8.9 % (0-4); Hematocrit 41.2 % (42.0-52.0); Hemoglobin 13.9 g/dl (14.0-18.0); Imm Gran Abs Auto 0.02 X10*3/uL (0.00-0.03); Imm Gran Pct Auto 0.2 % (0.0-0.4); Lymphocytes Absolute Auto 1.8 X10*3/uL (1.2-4.9); Lymphocytes Percent Auto 20.5 % (20-40); Mean Corpuscular HGB Conc 33.7 g/dl (31.0-36.0); Mean Corpuscular Volume 94.9 fL (80.0-98.0); Mean Platelet Volume 9.5 fL (9.4-12.4); Monocytes Absolute Auto 0.4 X10*3/uL (0.1-1.2); Monocytes Percent Auto 4.8 % (2-11); Neutrophils Absolute Auto 5.9 x10*3/uL (2.0-8.3); Neutrophils Percent Auto 65.2 % (45-73); Platelet Count 222 X10*3/uL (160-400); Red Blood Count 4.34 X10*6/uL (4.60-5.80); Red Cell Distribution Width 12.4 % (11.0-16.0)
[2024-09-20 02:19] LABS: Venous Blood Gas Refer to POC result
[2024-09-20 02:20] LABS: VBG Base Excess 4.9 mmol/L; VBG HCO3 34 mmol/L (22-26); VBG pCO2 72 mmHg; VBG pH 7.27 (7.32-7.43); VBG pO2 47 mmHg
[2024-09-20 02:30] LABS: Anion Gap 15 (12-20); Blood Urea Nitrogen 13 mg/dL (9-16); Calcium 9.1 mg/dL (8.4-10.2); Carbon Dioxide 30 mmol/L (22-29); Chloride 105 mmol/L (96-108); Creatinine Clr Calc Pharmacy 112.9; Estimated Glomerular Filt Rate > 60; Glucose Random 140 mg/dL (60-115); Potassium 3.5 mmol/L (3.3-5.1); Sodium 146 mmol/L (135-145)
[2024-09-20 02:35] LABS: Lactic Acid 2.2 mmol/L (0.5-2.0)
[2024-09-20 02:39] LABS: Troponin-I High Sensitivity < 2.7 ng/L (<3.5-35.0)
[2024-09-20 02:54] LABS: Influenza A PCR NEGATIVE (Negative); Influenza B PCR NEGATIVE (Negative); Resp Syncy Virus RNA Qual PCR NEGATIVE (Negative); SARS COV2 PCR INHOUSE NEGATIVE (Negative)
[2024-09-20 04:13] LABS: Reflex Lactate? Lactic Acid Added
[2024-09-20 04:48] LABS: ~Lactic Acid-LAB USE ONLY 3.8 mmol/L (0.5-2.0)
--- NOTE | 2024-09-20 04:56 | PC.NURSE ---
Provider Salena informed of lactic results
[2024-09-20 06:30] LABS: Reflex Lactate? 2 Y
--- NOTE | 2024-09-20 06:36 | PC.NURSE ---
Per Dr. Martino third lactic acid not needed at this time
--- NOTE | 2024-09-20 06:39 | ED.SOB ---
HPI - SOB/Dyspnea General Chief Complaint: Dyspnea Stated Complaint: Diff breathing hx COPD Time Seen by Provider: 09/20/24 06:28 Source: patient and EMS Mode of arrival: EMS Limitations: no limitations History of Present Illness ED Provider: Dr. Mariela Martino HPI Narrative: patient comes to the emergency room complaining of shortness of breath. Patient states that he has history of asthma and COPD. Patient states that he usually gets asthma exacerbations or COPD exacerbations when the weather changes, strong odors, guarding. Patient states that yesterday his neighbor was cutting the grass, patient started feeling wheezy and short of breath since then. Patient used multiple nebulization treatments at home, but states that throughout the night his symptoms got worse. Patient denies fever. Patient called 911, patient received 2 g of magnesium and 125 mg of Solu-Medrol prior to arrival. Related Data Home Medications ?Medication ?Instructions ?Recorded ?Confirmed methadone 10 mg/mL oral 58 mg PO DAILY 04/18/23 07/31/24 concentrate (Methadose) montelukast 10 mg tablet 10 mg PO BEDTIME PRN Allergies 06/22/24 07/31/24 Previous Rx's ?Medication ?Instructions ?Recorded nebulizers #1 ea 11/26/20 apixaban 5 mg tablet (Eliquis) 5 mg PO BID 90 days #180 tabs 04/01/24 albuterol sulfate 90 mcg/actuation 2 puff inhalation Q4-6H PRN 04/10/24 aerosol inhaler shortness of breath or wheezing #3 ea fluticasone furoate 200 1 inh inhalation DAILY #3 ea 07/07/24 mcg-vilanterol 25 mcg/dose inhalation powder (Breo Ellipta) amoxicillin 875 mg-potassium 1 tab PO BID #14 tabs 08/26/24 clavulanate 125 mg tablet prednisone 20 mg tablet 40 mg (2 x 20 mg) PO DAILY #10 tabs 08/26/24 albuterol sulfate 2.5 mg/3 mL 2.5 mg (3 mL) inhalation Q4-6H PRN 09/09/24 (0.083 %) solution for nebulization for wheezing #150 mL Allergies Allergy/AdvReac Type Severity Reaction Status Date / Time walnut Allergy Unknown SWELLING Verified 09/20/24 01:37 buprenorphine [From Suboxone] Allergy swelling Verified 09/20/24 01:37 in his hands and rash naloxone [From Suboxone] Allergy swelling Verified 09/20/24 01:37 in his hands and rash NSAIDS/ASA Allergy Unknown unknown Uncoded 09/20/24 01:37 walnuts Allergy Unknown anaphylaxis Uncoded 09/20/24 01:37 Review of Systems Review of Systems: Constitutional : No Weight loss, No Fever, No Chills, No Night Sweats, No Fatigue, No Malaise ENT/Mouth : No Hearing loss, No Ear Pain, No Nasal Congestion, No Sinus Pain, No Hoarseness, No sore throat, No Rhinorrhea, No Swallowing Difficulty Eyes: No Eye Pain, No Swelling, No Redness, No Foreign Body, No Discharge, No Vision Changes Cardiovascular : No Chest Pain, No SOB, No Dyspnea on Exertion, No Orthopnea, No Edema, No Palpitations Respiratory : Complaining of cough, wheezing, shortness of breath Gastrointestinal : No Nausea, No Vomiting, No Diarrhea, No Constipation, No abdominal Pain, No Hematochezia, No Melena Genitourinary : no irregular bleeding, No Dysuria, No Urinary Frequency, No Hematuria, No Urinary Incontinence, No Urgency, No Flank Pain, No Urinary Flow Changes, No Hesitancy Musculoskeletal : No joint pain, No Myalgias, No Joint Swelling Skin : No Skin Lesions, No rash Neuro : No Weakness, No Numbness, No Paresthesias, No Loss of Consciousness, No Dizziness, No Headache Psych : No Anxiety/Panic, No Depression, No SI/HI/AH/VH, No Social Issues, Heme/Lymph: No Bruising, No Bleeding,No Lymphadenopathy Endocrine : No Polyuria, No Polydipsia, No Temperature Intolerance [facility] Past Medical History Medical History Acute on chronic respiratory failure with hypoxia and hypercapnia Inhales drugs Heroin use Allergic asthma with status asthmaticus Moderate persistent asthma with exacerbation Opiate abuse, episodic Left against medical advice Lung problems from crack cocaine Chronic lung disease Asthma Pulmonary emboli Family History Family History Other Family history non-contributory Social History Social History Household Members: Spouse Housing: House Do you presently have visiting nurse or other home services: No Unable to assess alcohol history related to: Unable to respond Alcohol intake: never Patient Tobacco Use Status: Former Tobacco user Tobacco use type: Cigarette Cigarettes Per Day: 1 Smoked in Last 30 Days: No e-Cigarette/Vaping Use: Never Used Second Hand Smoke Exposure: No Use of substances other than those prescribed or required for medical reasons: Yes Substance Use Type: Heroin Substance Use Type Other:: methadone Substance Use Frequency: Daily Last Used Substance: Hours (ago) Any prior treatment program specific to substance use: Yes Advance Directives: Yes Advance Directives on File: Yes Advance Directives Date on File: 06/22/24 service: No Current occupational status: unemployed Cognitive needs: No Hearing needs: No Vision needs: No Physical Exam Vital Signs: Vital Signs: Last Vital Signs Temp 99 F 09/20/24 05:50 Pulse 84 09/20/24 05:50 Resp 16 09/20/24 07:05 BP 108/61 09/20/24 05:50 Pulse Ox 95 09/20/24 05:50 O2 Del Method Nasal Cannula 09/20/24 05:50 O2 Flow Rate 3 09/20/24 05:50 Oxygen Flow Rate 4 09/20/24 01:34 BMI result Body Mass Index 22.6 Const: Other: Appearance: Alert. Oriented X3. No acute distress. Eyes: Pupils equal, round and reactive to light. ENT: Pharynx normal. Neck: Normal inspection. Neck supple. No lymph nodes noted. No crepitus CVS: Normal heart rate and rhythm. Pulses normal. Normal S1 and S2 Respiratory: No respiratory distress. patient has bilateral wheezing. Patient is on nasal cannula 3 L. When patient stands up without significant exertion, his oxygen dropped to 86% on 3 L. Abdomen: Soft and nontender. No rigidity. No distention. Skin: Skin warm and dry. Normal skin color. Normal skin turgor. Extremities: No lower extremity edema. No Lacerations. No Rash Neuro: Oriented X 3. No motor deficit. No sensory deficit. Moving all extremities. No slurred speech. CN 2 through 12 grossly intact Psych: calm, cooperative, normal affect Course Course Course Narrative: patient comes to the emergency room complaining of an asthma exacerbation, possible chronic lung disease. Patient states that this time the trigger was his neighbor cutting the grass and inhaling polen Medications Administered Generic Name Dose Route Start Last Admin Trade Name Freq PRN Reason Stop Dose Admin Sodium Chloride 2,500 mls @ 999 mls/hr 09/20/24 06:37 09/20/24 06:46 Ns IVCONT 09/20/24 09:07 999 mls/hr .Q2H31M ONE Administration Azithromycin 500 mg/ Sodium 250 mls @ 125 mls/hr 09/20/24 06:37 09/20/24 06:45 Chloride IV 09/20/24 08:36 125 mls/hr ONCE ONE Administration Discontinued Medications Generic Name Dose Route Start Last Admin Trade Name Jose PRN Reason Stop Dose Admin Albuterol Sulfate 5 mg/ 7.5 mg 09/20/24 01:50 09/20/24 01:54 Albuterol Sulfate 2.5 mg INHALE 09/20/24 01:51 7.5 mg ONCE ONE Administration Ceftriaxone Sodium 1 gm 09/20/24 06:37 09/20/24 06:44 Ceftriaxone Sodium 1 Gm Vial IVPUSH 09/20/24 06:38 1 gm ONCE ONE Administration Albuterol Sulfate 7.5 mg/ 0 mg 09/20/24 01:29 09/20/24 01:37 Albuterol/Ipratropium 3 ml INHALE 09/20/24 01:30 3 each ONCE ONE Administration Medical Decision Making Medical Decision Making MDM Narrative: My interpretation of labs: Patient's hematology is at baseline, white blood cell count is normal. Patient's chemistry shows slightly elevated sodium of 146. Patient's initial lactic acid 2.2, then 3.8. Patient has received multiple nebulization treatments, likely the cause of patient's increase in lactic acid. Patient's serology negative for influenza RSV and COVID chest x-ray does not show any acute abnormality. Patient states that overall he feels that he is feeling better. Still a bit wheezy. When patient stands, his oxygen saturation drops to 86% on 3 L. according to the patient, at home he does not really use oxygen, he has it available p.r.n. emergencies. Otherwise, he does not use it. I discussed the patient with Dr. Wren. at this time, they prefer not to admit the patient Because the patient's pH is 7.22, pCO2 72. Patient is completely awake, alert and oriented x3. Unfortunately, patient can not use CPAP or BiPAP. Patient states that he had a soft palate surgery years ago, and has no way of regulating the airflow from the mask and can not tolerated. However, patient states that when he has asthma or COPD exacerbations and he was to hospitals, he does well with high-flow. Patient states that at home, when he is not having an asthma or COPD exacerbation, his constantly checks his oxygen and did at baseline 96 97%. That is without using oxygen. Patient states that from his experience from previous admissions, high-flow helps him the best to reduce his pCO2 we repeated patient's venous blood gases, pH pCO2 and bicarb are now all normal. I informed Dr. Anderson from the Medicine team overall, seems that patient is having more asthma exacerbations rather than chronic lung disease. Patient is very sensitive to environmental allergens which triggered his asthma. Given his past medical history, patient was empirically treated with IV fluids, antibiotics. However, sepsis is not suspected. Differential Diagnosis Differential Diagnoses: The differential diagnosis associated with the presentation includes Admission/Observation Consideration of admission/observation: Escalation of care including admission/observation considered Consult Healthcare Provider Management of the patient was discussed with: Hospitalist Lab Data [facility] Lab Attestation statement: I reviewed the patient's lab results. 09/20/24 02:09 09/20/24 02:09 Labs: Lab Results 09/20/24 09/20/24 09/20/24 Range/Units 02:05 02:09 02:15 WBC 9.0 (4.8-10.8) X10*3/uL RBC 4.34 L (4.60-5.80) X10*6/uL Hgb 13.9 L (14.0-18.0) g/dl Hct 41.2 L (42.0-52.0) % MCV 94.9 (80.0-98.0) fL MCH 32.0 (27.0-33.0) pg MCHC 33.7 (31.0-36.0) g/dl RDW 12.4 (11.0-16.0) % Plt Count 222 (160-400) X10*3/uL MPV 9.5 (9.4-12.4) fL Immature Gran % (Auto) 0.2 (0.0-0.4) % Neut % (Auto) 65.2 (45-73) % Lymph % (Auto) 20.5 (20-40) % Pettis % (Auto) 4.8 (2-11) % Eos % (Auto) 8.9 H (0-4) % Baso % (Auto) 0.4 (0-2) % Lymph # (Auto) 1.8 (1.2-4.9) X10*3/uL Pettis # (Auto) 0.4 (0.1-1.2) X10*3/uL Eos # (Auto) 0.8 H (0.0-0.4) X10*3/uL Baso # (Auto) 0.0 (0.0-0.2) X10*3/uL Abs Immat Gran (auto) 0.02 (0.00-0.03) X10*3/uL Absolute Neuts (auto) 5.9 (2.0-8.3) x10*3/uL Absolute Nucleated RBC 0.000 (0.0-0.012) X10*3/uL Nucleated RBC % (auto) 0.0 (0.0-0.2) /100WBC VBG pH 7.27 L (7.32-7.43) VBG pCO2 72 mmHg VBG pO2 47 mmHg VBG HCO3 34 H (22-26) mmol/L VBG O2 Saturation 64.0 % VBG Base Excess 4.9 mmol/L Sodium 146 H (135-145) mmol/L Potassium 3.5 (3.3-5.1) mmol/L Chloride 105 (96-108) mmol/L Carbon Dioxide 30 H (22-29) mmol/L Anion Gap 15 (12-20) BUN 13 (9-16) mg/dL Creatinine 0.84 (0.5-1.4) mg/dL Estim Creat Clear Calc 112.9 Estimated GFR > 60 Random Glucose 140 H (60-115) mg/dL Lactic Acid 2.2 H* (0.5-2.0) mmol/L Lactic Acid F/U @ 2Hr (0.5-2.0) mmol/L Calcium 9.1 (8.4-10.2) mg/dL Troponin I High Sens < 2.7 (<3.5-35.0) ng/L Influenza Type A (PCR) NEGATIVE (Negative) Influenza Type B (PCR) NEGATIVE (Negative) RSV RNA Qual (PCR) NEGATIVE (Negative) SARS-CoV-2 RNA (RT-PCR) NEGATIVE (Negative) 09/20/24 09/20/24 Range/Units 04:26 07:01 WBC (4.8-10.8) X10*3/uL RBC (4.60-5.80) X10*6/uL Hgb (14.0-18.0) g/dl Hct (42.0-52.0) % MCV (80.0-98.0) fL MCH (27.0-33.0) pg MCHC (31.0-36.0) g/dl RDW (11.0-16.0) % Plt Count (160-400) X10*3/uL MPV (9.4-12.4) fL Immature Gran % (Auto) (0.0-0.4) % Neut % (Auto) (45-73) % Lymph % (Auto) (20-40) % Pettis % (Auto) (2-11) % Eos % (Auto) (0-4) % Baso % (Auto) (0-2) % Lymph # (Auto) (1.2-4.9) X10*3/uL Pettis # (Auto) (0.1-1.2) X10*3/uL Eos # (Auto) (0.0-0.4) X10*3/uL Baso # (Auto) (0.0-0.2) X10*3/uL Abs Immat Gran (auto) (0.00-0.03) X10*3/uL Absolute Neuts (auto) (2.0-8.3) x10*3/uL Absolute Nucleated RBC (0.0-0.012) X10*3/uL Nucleated RBC % (auto) (0.0-0.2) /100WBC VBG pH 7.39 (7.32-7.43) VBG pCO2 41 mmHg VBG pO2 57 mmHg VBG HCO3 25 (22-26) mmol/L VBG O2 Saturation 78.0 % VBG Base Excess 0.3 mmol/L Sodium (135-145) mmol/L Potassium (3.3-5.1) mmol/L Chloride (96-108) mmol/L Carbon Dioxide (22-29) mmol/L Anion Gap (12-20) BUN (9-16) mg/dL Creatinine (0.5-1.4) mg/dL Estim Creat Clear Calc Estimated GFR Random Glucose (60-115) mg/dL Lactic Acid (0.5-2.0) mmol/L Lactic Acid F/U @ 2Hr 3.8 H* (0.5-2.0) mmol/L Calcium (8.4-10.2) mg/dL Troponin I High Sens (<3.5-35.0) ng/L Influenza Type A (PCR) (Negative) Influenza Type B (PCR) (Negative) RSV RNA Qual (PCR) (Negative) SARS-CoV-2 RNA (RT-PCR) (Negative) Independent Interpretation I performed an independent interpretation of an: Plain X-Ray Radiology Impression Radiologist Impression: No consolidation or effusion. Lungs are hyperexpanded and hyperlucent, emphysematous changes. Heart size is normal. No acute fracture. IMPRESSION: 1. No acute findings. Critical Care Time Critical Care Time Critical Care Time: Yes Total Critical Care Time: 60 Attestation: I have personally provided critical care time. Time includes review of lab data, radiology results, discussion with consultants, and monitoring for potential decompensation. Intervention performed as documented. Discharge Plan Discharge Clinical Impression: Asthma exacerbation, Chronic lung disease Patient Disposition: Admitted As Inpatient Prescriptions: No Action (DME) nebulizers Misc See Rx Instructions .Route Qty: 1 0RF Rx Instructions: Use every 4 hours as needed for SOB, wheezing albuterol sulfate 90 mcg/actuation HFA aerosol inhaler 2 puff inhalation Q4-6H PRN (Reason: shortness of breath or wheezing) Qty: 3 4RF fluticasone furoate-vilanterol [Breo Ellipta] 200-25 mcg/dose blister with device 1 inh inhalation DAILY Qty: 3 4RF prednisone 20 mg tablet 40 mg PO DAILY Qty: 10 0RF amoxicillin-pot clavulanate 875-125 mg tablet 1 tab PO BID Qty: 14 0RF albuterol sulfate 2.5 mg /3 mL (0.083 %) solution for nebulization 2.5 mg inhalation Q4-6H PRN (Reason: for wheezing) Qty: 150 3RF methadone [Methadose] 10 mg/mL Concentrate 58 mg PO DAILY Rx Instructions: Verified dose on 07/06/24 with [facility] [phone] montelukast 10 mg Tablet 10 mg PO BEDTIME PRN (Reason: Allergies) Eliquis 5 mg tablet 5 mg PO BID 90 Days Qty: 180 4RF Print Language: Indonesian
[2024-09-20] MEDS: cefTRIAXone sodium 1 GM VIAL IVPUSH (06:44)
[2024-09-20] MEDS: Azithromycin 500 MG in 0.9 % Sodium Chloride 250 ML 125 MG IV (06:45)
[2024-09-20] MEDS: 0.9 % Sodium Chloride 2,500 ML 999 ML IVCONT (06:46)
--- NOTE | 2024-09-20 07:00 | PC.NURSE ---
RT at bedside, placed Pt on high flow 35% FIO2, 40L.
[2024-09-20 07:08] LABS: VBG Base Excess 0.3 mmol/L; VBG HCO3 25 mmol/L (22-26); VBG pCO2 41 mmHg; VBG pH 7.39 (7.32-7.43); VBG pO2 57 mmHg
[2024-09-20 07:09] LABS: Venous Blood Gas Refer to POC result
--- NOTE | 2024-09-20 07:35 | PM.IMHP ---
History of Present Illness Date of Service: 09/20/24 Chief Complaint: SOB, dyspnea A 49 years old male with PMH of Cocaine, opiate abuse, Hx Pul Embolism, COPD\Asthma among others who presents to the hospital complaining of worsening difficulties breathing and wheezing. He reports his neighbour was cutting the grass and he started feeling wheezy and short of breath shortly after that. tried home nebulizers with no relief. presented to ED by EMS. No chest pain, palpitations, nausea, vomiting, diarrhea or urinary symptoms. In ED received Mg sulphate and Methylprednisone along with nebulizers with mild improvement. admitted for observation and treatment. Review of Systems Review of Systems: No fever, chills or weakness No chest pain, palpitation reporting shortness of breath or coughing No abdominal pain, nausea or vomiting No urinary symptoms No any rash or wounds PMFSH Medical History Acute on chronic respiratory failure with hypoxia and hypercapnia Inhales drugs Heroin use Allergic asthma with status asthmaticus Moderate persistent asthma with exacerbation Opiate abuse, episodic Left against medical advice Lung problems from crack cocaine Chronic lung disease Asthma Pulmonary emboli Family History Other Family history non-contributory Social History Household Members: Spouse Housing: House Do you presently have visiting nurse or other home services: No Unable to assess alcohol history related to: Unable to respond Alcohol intake: never Patient Tobacco Use Status: Former Tobacco user Tobacco use type: Cigarette Cigarettes Per Day: 1 Smoked in Last 30 Days: No e-Cigarette/Vaping Use: Never Used Second Hand Smoke Exposure: No Use of substances other than those prescribed or required for medical reasons: Yes Substance Use Type: Heroin Substance Use Type Other:: methadone Substance Use Frequency: Daily Last Used Substance: Hours (ago) Any prior treatment program specific to substance use: Yes Advance Directives: Yes Advance Directives on File: Yes Advance Directives Date on File: 06/22/24 service: No Current occupational status: unemployed Cognitive needs: No Hearing needs: No Vision needs: No Meds Allergies Allergy/AdvReac Type Severity Reaction Status Date / Time walnut Allergy Unknown SWELLING Verified 09/20/24 01:37 buprenorphine [From Suboxone] Allergy swelling Verified 09/20/24 01:37 in his hands and rash naloxone [From Suboxone] Allergy swelling Verified 09/20/24 01:37 in his hands and rash NSAIDS/ASA Allergy Unknown unknown Uncoded 09/20/24 01:37 walnuts Allergy Unknown anaphylaxis Uncoded 09/20/24 01:37 Active Medications: Current Medications Sodium Chloride (Ns) 2,500 mls @ 999 mls/hr IVCONT .[id number] ONE Stop: 09/20/24 09:07 Last Admin: 09/20/24 06:46 Dose: 999 mls/hr Azithromycin 500 mg/ Sodium (Chloride) 250 mls @ 125 mls/hr IV ONCE ONE Stop: 09/20/24 08:36 Last Admin: 09/20/24 06:45 Dose: 125 mls/hr Home Medications ?Medication ?Instructions ?Recorded ?Confirmed ?Last Taken ?Type methadone 10 mg/mL oral 58 mg PO DAILY 04/18/23 09/20/24 09/18/24 History concentrate (Methadose) montelukast 10 mg tablet 10 mg PO BEDTIME PRN Allergies 06/22/24 09/20/24 07/06/24 History chlorhexidine gluconate 0.12 % 15 ml PO NEEDED 09/20/24 09/20/24 09/19/24 History mouthwash fluticasone fur. 200 mcg-umeclid 1 ea inhalation DAILY 09/20/24 09/20/24 09/19/24 History 62.5 mcg-vilant 25 mcg inhalat.powder (Trelegy Ellipta) fluticasone furoate 200 1 ea inhalation DAILY 09/20/24 Unknown History mcg-vilanterol 25 mcg/dose inhalation powder (Breo Ellipta) Physical Exam Vital Signs and Narrative: Vital Signs: Last Vital Signs Temp 99 F 09/20/24 05:50 Pulse 84 09/20/24 05:50 Resp 16 09/20/24 07:05 BP 108/61 09/20/24 05:50 Pulse Ox 95 09/20/24 05:50 O2 Del Method Nasal Cannula 09/20/24 05:50 O2 Flow Rate 3 09/20/24 05:50 Oxygen Flow Rate 4 09/20/24 01:34 BMI result Body Mass Index 22.6 Const: Other: Constitutional : Awake, interactive Neck : Normal inspection, Supple Cardiovascular : RRR, no JVP, no lower extremity edema Respiratory :decreased bilateral air entry, no crackles, bilateral expiratory wheezes or rhonchi, moderate respiratory distress, on O2 supplement Gastrointestinal: soft, lax, Normal bowel sounds, Non tender Skin : Warm, Dry Neurological : Alert & oriented x3, No focal deficit Results Labs 09/20/24 02:09 09/20/24 02:09 Labs: Laboratory Results - last 24 hr 09/20/24 09/20/24 09/20/24 02:05 02:09 02:15 MCV 94.9 MCH 32.0 MCHC 33.7 RDW 12.4 Plt Count 222 MPV 9.5 Immature Gran % (Auto) 0.2 Neut % (Auto) 65.2 Lymph % (Auto) 20.5 [place] % (Auto) 4.8 Eos % (Auto) 8.9 H Baso % (Auto) 0.4 Lymph # (Auto) 1.8 [place] # (Auto) 0.4 Eos # (Auto) 0.8 H Baso # (Auto) 0.0 Abs Immat Gran (auto) 0.02 Absolute Neuts (auto) 5.9 Absolute Nucleated RBC 0.000 Nucleated RBC % (auto) 0.0 VBG pH 7.27 L VBG pCO2 72 VBG pO2 47 VBG HCO3 34 H VBG O2 Saturation 64.0 VBG Base Excess 4.9 Anion Gap 15 Estim Creat Clear Calc 112.9 Estimated GFR > 60 Random Glucose 140 H Lactic Acid 2.2 H* Lactic Acid F/U @ 2Hr Calcium 9.1 Troponin I High Sens < 2.7 Influenza Type A (PCR) NEGATIVE Influenza Type B (PCR) NEGATIVE RSV RNA Qual (PCR) NEGATIVE SARS-CoV-2 RNA (RT-PCR) NEGATIVE 09/20/24 09/20/24 04:26 07:01 MCV MCH MCHC RDW Plt Count MPV Immature Gran % (Auto) Neut % (Auto) Lymph % (Auto) [place] % (Auto) Eos % (Auto) Baso % (Auto) Lymph # (Auto) [place] # (Auto) Eos # (Auto) Baso # (Auto) Abs Immat Gran (auto) Absolute Neuts (auto) Absolute Nucleated RBC Nucleated RBC % (auto) VBG pH 7.39 VBG pCO2 41 VBG pO2 57 VBG HCO3 25 VBG O2 Saturation 78.0 VBG Base Excess 0.3 Anion Gap Estim Creat Clear Calc Estimated GFR Random Glucose Lactic Acid Lactic Acid F/U @ 2Hr 3.8 H* Calcium Troponin I High Sens Influenza Type A (PCR) Influenza Type B (PCR) RSV RNA Qual (PCR) SARS-CoV-2 RNA (RT-PCR) Assessment and Plan (1) Asthma exacerbation: Status: Acute (2) COPD exacerbation: Status: Acute Plan A 49 years old male with PMH of Cocaine, opiate abuse, Hx Pul Embolism, COPD\Asthma among others who presents to the hospital complaining of worsening difficulties breathing and wheezing. Acute hypoxic respiratory failure 2/2 Acute COPD\asthma Exacerbation requiring High flow for hypoxemia Steroids, Nebulizers Wean O2 down as tolerated Singulair resume home inhalers Hx of Pul embolis continue Eliquis Hx Opiate abuse Continue methadone advised to stop cocaine DVT PPx Eliquis Quality Stroke Does the patient have a stroke diagnosis?: No VTE Prior VTE?: No VTE Risk Level:: Medical - moderate - high VTE Device Contraindication: Treatment Not Indicated VTE Drug Contraindication: N/A - Med Ordered
[2024-09-20] MEDS: Albuterol/Iprat 2.5/0.5MG 3 ML AMPUL.NEB INHALE ×4 (07:45→20:41)
--- NOTE | 2024-09-20 09:11 | PC.NURSE ---
Report received. Taken over care at this time.
--- NOTE | 2024-09-20 09:49 | PHA.MEDREC ---
Addendum entered by Cara Edgar jules 09/20/24 10:18: MED REC REVIEWED Dr. Carreon was notified of duplicate agents between Breo and Trelegy. Original Note: Pharmacy Consult ? Medication Reconciliation Pharmacy has completed the medication reconciliation. Patient confirmed all his medications. Patient states he takes Methadone 58 mg daily from [facility] in [place], last dose was yesterday. Patient says he is on both Trelegy Ellipta, last filled 09/01/24 for 30 days and Breo Ellipta, last filled 07/07/[address] Borjas note from 10/03/22 states patient was being switched from Breo to Trelegy and all his note there after states patient is to continue Trelegy Ellipta, however patient has been filling both inhalers consistently for the past year. Left Breo unconfirmed and will notify the provider.
[2024-09-20] MEDS: Apixaban 5 MG TABLET PO ×2 (11:32→19:42)
--- NOTE | 2024-09-20 11:48 | PC.NURSE ---
Attempted to call pt. methadone clinic and no answers. Informed pharmacy.
--- NOTE | 2024-09-20 14:17 | PC.NURSE ---
Report given to ALFONSO Jalloh.
--- NOTE | 2024-09-20 14:40 | PC.NURSE ---
transferred from main ed, methadone dose verified with Nia from [facility] 58mg last given on 09/18/24 at 10;35am, provider aware
--- NOTE | 2024-09-20 15:14 | HE.PHANOTE ---
Methadone verified [facility] last dose 58 mg 09/18/24
[2024-09-20] MEDS: methADONE HCl 20 MG/2 ML ORAL.CONC 40 MG PO (16:44)
[2024-09-20] MEDS: methADONE HCl 20 MG/2 ML ORAL.CONC 18 MG PO (16:55)
[2024-09-20] MEDS: methylPREDNISolone Sod Succ 40 MG/ML VIAL IVPUSH (19:42)
[2024-09-20] MEDS: 0.9 % Sodium Chloride Flush 3 ML SYRINGE IVFLUSH (19:42)
[2024-09-20] MEDS: Montelukast Sodium 10 MG TABLET PO (19:42)
[2024-09-21] VITALS (9 sets, daily range): BP systolic 105–116; BP diastolic 64–74; PULSE 64–98; RESP 14–20; TEMP 36.3–37.2; O2SAT 92–94
[2024-09-21] MEDS: 0.9 % Sodium Chloride Flush 3 ML SYRINGE IVFLUSH ×2 (00:21→08:18)
[2024-09-21] MEDS: Benzonatate 100 MG CAPSULE 200 MG PO ×3 (04:40→22:08)
[2024-09-21 05:23] LABS: Basophils Percent Auto 0.1 % (0-2); Hematocrit 34.7 % (42.0-52.0); Hemoglobin 11.4 g/dl (14.0-18.0); Imm Gran Abs Auto 0.07 X10*3/uL (0.00-0.03); Imm Gran Pct Auto 0.5 % (0.0-0.4); Lymphocytes Absolute Auto 0.7 X10*3/uL (1.2-4.9); MANUAL DIFF FLAG SCAN; Mean Corpuscular HGB Conc 32.9 g/dl (31.0-36.0); Mean Corpuscular Hemoglobin 31.6 pg (27.0-33.0); Mean Corpuscular Volume 96.1 fL (80.0-98.0); Mean Platelet Volume 10.2 fL (9.4-12.4); Monocytes Absolute Auto 0.3 X10*3/uL (0.1-1.2); Monocytes Percent Auto 2.2 % (2-11); Neutrophils Absolute Auto 12.4 x10*3/uL (2.0-8.3); Neutrophils Percent Auto 92.2 % (45-73); Platelet Count 200 X10*3/uL (160-400); Red Blood Count 3.61 X10*6/uL (4.60-5.80); Red Cell Distribution Width 12.5 % (11.0-16.0); SCAN SMEAR FLAG 1; White Blood Count 13.5 X10*3/uL (4.8-10.8)
[2024-09-21 05:40] LABS: Anion Gap 11 (12-20); Blood Urea Nitrogen 15 mg/dL (9-16); Calcium 8.7 mg/dL (8.4-10.2); Carbon Dioxide 26 mmol/L (22-29); Chloride 108 mmol/L (96-108); Creatinine Clr Calc Pharmacy 117.1; Estimated Glomerular Filt Rate > 60; Glucose Random 154 mg/dL (60-115); Potassium 4.3 mmol/L (3.3-5.1); Sodium 141 mmol/L (135-145)
[2024-09-21 05:52] LABS: SLIDE REVIEW VERIFIED
[2024-09-21] MEDS: Azithromycin 250 MG TABLET PO (08:10)
[2024-09-21] MEDS: methADONE HCl 20 MG/2 ML ORAL.CONC 58 MG PO (08:10)
[2024-09-21] MEDS: Apixaban 5 MG TABLET PO ×2 (08:18→20:22)
[2024-09-21] MEDS: methylPREDNISolone Sod Succ 40 MG/ML VIAL IVPUSH ×2 (08:18→20:23)
[2024-09-21] MEDS: Albuterol/Iprat 2.5/0.5MG 3 ML AMPUL.NEB INHALE ×4 (09:07→21:14)
--- NOTE | 2024-09-21 09:56 | PC.NURSE ---
pt walked to bathroom independently with portable O2. Full bed change, new gown. Back to bed on 2L O2
[2024-09-21] MEDS: Fluticasone/Umeclidinium/Vilanterol 200/62.5/25 BLST.W.DEV 1 PUFF INHALE (11:34)
--- NOTE | 2024-09-21 13:27 | HO.PM.IMPN ---
Subjective Subjective Date of Service: 09/21/24 Interval History: seen and evaluated feels better still wheezy and requiring O2 supplement no more overnight events Review of Systems Review of Systems: Yes all other systems are reviewed and are negative Physical Exam Vital Signs: Vital Signs: Last Vital Signs Temp 97.4 F 09/21/24 11:49 Pulse 78 09/21/24 11:49 Resp 14 09/21/24 11:49 BP 105/70 09/21/24 11:49 Pulse Ox 92 09/21/24 06:12 O2 Del Method Nasal Cannula 09/21/24 11:49 O2 Flow Rate 2 09/21/24 11:49 FiO2 35 09/20/24 07:55 Oxygen Flow Rate 4 09/20/24 01:34 BMI result Body Mass Index 22.6 Const: Other: Constitutional : Awake, interactive Neck : Normal inspection, Supple Cardiovascular : RRR, no JVP, no lower extremity edema Respiratory :decreased bilateral air entry, no crackles, bilateral expiratory wheezes or rhonchi, mild respiratory distress, on O2 supplement Gastrointestinal: soft, lax, Normal bowel sounds, Non tender Skin : Warm, Dry Neurological : Alert & oriented x3, No focal deficit Objective Data Active Medications Acetaminophen (Acetaminophen 325 Mg Tablet) 650 mg PO Q6H PRN PRN Reason: Pain, Mild 1-3,fever,headache Albuterol Sulfate (Albuterol Sulfate (0.083%) 2.5 Mg/3 Ml Vial.Neb) 2.5 mg INHALE RQ4H PRN PRN Reason: Shortness of Breath/Wheezing Albuterol/Ipratropium (Albuterol/Iprat 2.5/0.5mg 3 Ml Ampul.Neb) 3 ml INHALE RQ4H WHILE AWAKE [facility] Last Admin: 09/21/24 11:32 Dose: 3 ml Documented By: MICHAEL Apixaban (Apixaban 5 Mg Tablet) 5 mg PO BID [facility] Last Admin: 09/21/24 08:18 Dose: 5 mg Documented By: KRISH Azithromycin (Azithromycin 250 Mg Tablet) 250 mg PO Q24H [facility] Last Admin: 09/21/24 08:10 Dose: 250 mg Documented By: KRISH Benzonatate (Benzonatate 100 Mg Capsule) 200 mg PO TID PRN PRN Reason: Cough Last Admin: 09/21/24 04:40 Dose: 200 mg Documented By: LUPE Calcium Carbonate (Calcium Carbonate 750 Mg Tab.Chew) 750 mg PO Q4H PRN PRN Reason: Heartburn Fluticasone/Umeclidinium/Vilanterol (Fluticasone/Umeclidinium/Vilanterol 200/62.5 Blst.W.Dev) 1 puff INHALE RDAILY [facility] Last Admin: 09/21/24 11:34 Dose: 1 puff Documented By: MICHAEL Magnesium Hydroxide (Milk Of Magnesia 30 Ml Oral.Susp) 30 ml PO DAILY PRN PRN Reason: Constipation Melatonin (Melatonin 3 Mg Tablet) 6 mg PO BEDTIME PRN PRN Reason: Insomnia Methadone HCl (Methadone Hcl 20 Mg/2 Ml Oral.Conc) 58 mg PO DAILY [facility] Last Admin: 09/21/24 08:10 Dose: 58 mg Documented By: KRISH Co-signed By: JANI Methylprednisolone Sodium Succinate (Methylprednisolone Sod Succ 40 Mg/Ml Vial) 40 mg IVPUSH Q12H [facility] Last Admin: 09/21/24 08:18 Dose: 40 mg Documented By: KRISH Montelukast Sodium (Montelukast Sodium 10 Mg Tablet) 10 mg PO BEDTIME [facility] Last Admin: 09/20/24 19:42 Dose: 10 mg Documented By: ROSALVA Ondansetron HCl (Ondansetron Hcl 4 Mg/2 Ml Vial) 4 mg IVPUSH Q8H PRN PRN Reason: Nausea and Vomiting Sodium Chloride (0.9 % Sodium Chloride Flush 3 Ml Syringe) 3 ml IVFLUSH QSHIFT [facility] Last Admin: 09/21/24 08:18 Dose: 3 ml Documented By: KRISH Labs 09/21/24 03:54 09/21/24 03:54 Labs: Laboratory Results - last 24 hr 09/21/24 03:54 MCV 96.1 MCH 31.6 MCHC 32.9 RDW 12.5 Plt Count 200 MPV 10.2 Immature Gran % (Auto) 0.5 H Neut % (Auto) 92.2 H Lymph % (Auto) 5.0 L [place] % (Auto) 2.2 Eos % (Auto) 0.0 Baso % (Auto) 0.1 Lymph # (Auto) 0.7 L [place] # (Auto) 0.3 Eos # (Auto) 0.0 Baso # (Auto) 0.0 Abs Immat Gran (auto) 0.07 H Absolute Neuts (auto) 12.4 H Absolute Nucleated RBC 0.000 Nucleated RBC % (auto) 0.0 Smear Tech's Comments VERIFIED Anion Gap 11 L Estim Creat Clear Calc 117.1 Estimated GFR > 60 Random Glucose 154 H Calcium 8.7 Microbiology Microbiology Results: Microbiology 09/20/24 02:13 Blood Culture - Preliminary Blood - Venous No growth after 24 hours. 09/20/24 02:09 Blood Culture - Preliminary Blood - Venous No growth after 24 hours. Assessment and Plan (1) Asthma exacerbation: Status: Acute (2) Acute on chronic respiratory failure with hypoxia and hypercapnia: Status: Acute (3) Acute exacerbation of chronic obstructive airways disease: Status: Acute Plan A 49 years old male with PMH of Cocaine, opiate abuse, Hx Pul Embolism, COPD\Asthma among others who presents to the hospital complaining of worsening difficulties breathing and wheezing. Acute hypoxic respiratory failure 2/2 Acute COPD\asthma Exacerbation requiring High flow for hypoxemia Steroids, Nebulizers Wean O2 down as tolerated Singulair resume home inhalers Hx of Pul embolis continue Eliquis Hx Opiate abuse Continue methadone advised to stop cocaine DVT PPx Eliquis Quality Stroke Does the patient have a stroke diagnosis?: No VTE Prior VTE?: No VTE Risk Level:: Medical - moderate - high VTE Device Contraindication: Treatment Not Indicated VTE Drug Contraindication: N/A - Med Ordered
--- NOTE | 2024-09-21 19:21 | PC.NURSE ---
This RN assumed pt care @ 1900. Pt a&ox4, no signs of distress. Pt ambulates to the restroom independently Pt denies pain at this time Plan of care ongoing.
--- NOTE | 2024-09-21 19:36 | PC.NURSE ---
Pt requested and given food and drink. Plan of care ongoing.
[2024-09-21] MEDS: Montelukast Sodium 10 MG TABLET PO (20:22)
[2024-09-21] MEDS: Melatonin 3 MG TABLET 6 MG PO (20:27)
--- NOTE | 2024-09-21 20:32 | PC.NURSE ---
Pt medicated per jun Pt requested and given meds to help with sleep Plan of care ongoing.
--- NOTE | 2024-09-21 20:41 | PC.NURSE ---
Pts line flushed Pt requesting to be allowed to sleep Plan of care ongoing.
--- NOTE | 2024-09-21 22:09 | PC.NURSE ---
Pt requesting cough meds Pharmacy called d/t med not scanning though entered as TID and last time administered @ 7613. Per Javon @ pharmacy not sure why med is not allowing to be scanned and d/c old ordered and entered new order for 8 Benzonatate given per [facility] Plan of care ongoing.
--- NOTE | 2024-09-22 03:54 | PC.NURSE ---
Assumed care of pt at 0320. Pt resting in bed bed eyes closed. Breathing even and unlabored, occasional cough. Call flores at bedside, plan of care on going.
[2024-09-22 04:00] VITALS: BP 112/63; PULSE 75; RESP 17; TEMP 36.3; O2SAT 93
[2024-09-22 04:58] LABS: Basophils Percent Auto 0.1 % (0-2); Hematocrit 35.9 % (42.0-52.0); Hemoglobin 11.9 g/dl (14.0-18.0); Imm Gran Abs Auto 0.04 X10*3/uL (0.00-0.03); Imm Gran Pct Auto 0.4 % (0.0-0.4); Lymphocytes Absolute Auto 0.6 X10*3/uL (1.2-4.9); Lymphocytes Percent Auto 5.3 % (20-40); MANUAL DIFF FLAG SCAN; Mean Corpuscular HGB Conc 33.1 g/dl (31.0-36.0); Mean Corpuscular Hemoglobin 32.2 pg (27.0-33.0); Mean Platelet Volume 10.5 fL (9.4-12.4); Monocytes Absolute Auto 0.3 X10*3/uL (0.1-1.2); Neutrophils Absolute Auto 9.9 x10*3/uL (2.0-8.3); Neutrophils Percent Auto 91.2 % (45-73); Platelet Count 226 X10*3/uL (160-400); Red Cell Distribution Width 12.8 % (11.0-16.0); SCAN SMEAR FLAG 1; White Blood Count 10.8 X10*3/uL (4.8-10.8)
[2024-09-22 05:15] LABS: Anion Gap 14 (12-20); Blood Urea Nitrogen 19 mg/dL (9-16); Calcium 9.2 mg/dL (8.4-10.2); Carbon Dioxide 28 mmol/L (22-29); Chloride 103 mmol/L (96-108); Creatinine Clr Calc Pharmacy 93.9; Estimated Glomerular Filt Rate > 60; Glucose Random 167 mg/dL (60-115); Potassium 4.1 mmol/L (3.3-5.1); Sodium 141 mmol/L (135-145)
[2024-09-22 05:19] LABS: SLIDE REVIEW VERIFIED
[2024-09-22 08:00] VITALS: BP 125/72; PULSE 67; RESP 16; TEMP 36.4; O2SAT 96
[2024-09-22] MEDS: Fluticasone/Umeclidinium/Vilanterol 200/62.5/25 BLST.W.DEV 1 PUFF INHALE (08:29)
[2024-09-22] MEDS: Albuterol/Iprat 2.5/0.5MG 3 ML AMPUL.NEB INHALE ×2 (08:29→11:35)
[2024-09-22 08:31] VITALS: PULSE 91; RESP 18; O2SAT 97
[2024-09-22] MEDS: methylPREDNISolone Sod Succ 40 MG/ML VIAL IVPUSH (08:39)
[2024-09-22] MEDS: Apixaban 5 MG TABLET PO (08:39)
[2024-09-22] MEDS: 0.9 % Sodium Chloride Flush 3 ML SYRINGE IVFLUSH (08:39)
[2024-09-22] MEDS: methADONE HCl 20 MG/2 ML ORAL.CONC 58 MG PO (08:42)
[2024-09-22] MEDS: Azithromycin 250 MG TABLET PO (10:00)
[2024-09-22 10:42] VITALS: BP 131/77; PULSE 71; RESP 20; TEMP 36.5; O2SAT 95
[2024-09-22 11:40] VITALS: PULSE 79; RESP 20; O2SAT 98
--- NOTE | 2024-09-22 11:48 | P.DS_ITS ---
DS: Providers Provider Date of Service: 09/22/24 Date of admission: 09/20/24 09:18 Date of discharge: 09/22/24 Primary care physician: Unknown Physician DS: Diagnosis Discharge Diagnosis (1) Asthma exacerbation: Status: Acute (2) Acute on chronic respiratory failure with hypoxia and hypercapnia: Status: Acute (3) Acute exacerbation of chronic obstructive airways disease: Status: Acute (4) Cocaine use: Status: Acute DS: Summary Hospital Course Hospital Course: Admission note HPI A 49 years old male with PMH of Cocaine, opiate abuse, Hx Pul Embolism, COPD\Asthma among others who presents to the hospital complaining of worsening difficulties breathing and wheezing. He reports his neighbour was cutting the grass and he started feeling wheezy and short of breath shortly after that. tried home nebulizers with no relief. presented to ED by EMS. No chest pain, palpitations, nausea, vomiting, diarrhea or urinary symptoms. In ED received Mg sulphate and Methylprednisone along with nebulizers with mild improvement. admitted for observation and treatment. Hospital course # Acute hypoxic respiratory failure secondary to Acute COPD\asthma Exacerbation requiring High flow for hypoxemia at time of presentation. Improved with Steroids, Azithromycin and Nebulizers scheduled and as needed as we Weaned O2 down as tolerated to 2L with saturation on 95%. Singulair added and sent to pharmacy. To be discharged on tapering dose prednisone and Azithromycin as well. # Hx of Pul embolis, continue Eliquis # Hx Opiate abuse . Continue methadone. advised to stop cocaine Discharge plan Continue tapering dose Prednisone as prescribed Azithromycin for 3 more days Use home nebulizer 3-4 times a day for the next 3 days then as needed Singulair sent , take at bedtime Follow with pulmonology as needed Avoid smoking\drugs Time Attestation Discharge Coordination Time (in mins): 36 Quality: Safe Use of Opioids Does Pt have an Active Cancer Diagnosis on the Problem List?: No Quality: Stroke Does the patient have a stroke diagnosis?: No Physical Exam Vital Signs: Vital Signs: Last Vital Signs Temp 97.7 F 09/22/24 10:42 Pulse 79 09/22/24 11:40 Resp 20 09/22/24 11:40 BP 131/77 09/22/24 10:42 Pulse Ox 95 09/22/24 10:42 O2 Del Method Nasal Cannula 09/22/24 10:42 O2 Flow Rate 2 09/22/24 10:42 FiO2 35 09/20/24 07:55 Oxygen Flow Rate 4 09/20/24 01:34 BMI result Body Mass Index 22.6 Const: Other: Constitutional : Awake, interactive Neck : Normal inspection, Supple Cardiovascular : RRR, no JVP, no lower extremity edema Respiratory :good bilateral air entry, no crackles, bilateral scattered wheezes , on O2 supplement Gastrointestinal: soft, lax, Normal bowel sounds, Non tender Skin : Warm, Dry Neurological : Alert & oriented x3, No focal deficit DS: Data Data Completed and Pending Completed studies during hospitalization [Text1]: Procedures Assistance with Respiratory Ventilation, Less than 24 Consecutive Hours, Continuous Positive Airway Pressure (09/14/23) Labs on day of discharge: Laboratory Results - last 24 hr 09/22/24 04:16 WBC 10.8 RBC 3.70 L Hgb 11.9 L Hct 35.9 L MCV 97.0 MCH 32.2 MCHC 33.1 RDW 12.8 Plt Count 226 MPV 10.5 Immature Gran % (Auto) 0.4 Neut % (Auto) 91.2 H Lymph % (Auto) 5.3 L [place] % (Auto) 3.0 Eos % (Auto) 0.0 Baso % (Auto) 0.1 Lymph # (Auto) 0.6 L [place] # (Auto) 0.3 Eos # (Auto) 0.0 Baso # (Auto) 0.0 Abs Immat Gran (auto) 0.04 H Absolute Neuts (auto) 9.9 H Absolute Nucleated RBC 0.000 Nucleated RBC % (auto) 0.0 Smear Tech's Comments VERIFIED Sodium 141 Potassium 4.1 Chloride 103 Carbon Dioxide 28 Anion Gap 14 BUN 19 H Creatinine 1.01 Estim Creat Clear Calc 93.9 Estimated GFR > 60 Random Glucose 167 H Calcium 9.2 Preliminary micro results at discharge 09/20/24 02:13 Blood Culture - Preliminary Blood - Venous No growth after 48 hours. 09/20/24 02:09 Blood Culture - Preliminary Blood - Venous No growth after 48 hours. Discharge Plan Discharge Anticipated Discharge Date/Time: 09/22/24 11:44 Patient Disposition: Home, Self-Care Discharge Diagnosis: ASthma\COPD exacerbation Referrals: Physician,Unknown J [Primary Care Provider] - 1 Week Discharge Medications: New montelukast 10 mg Tablet 10 mg PO BEDTIME Qty: 90 0RF azithromycin 250 mg Tablet 250 mg PO Q24H Qty: 3 0RF prednisone 10 mg tablet See Taper PO DIRECTED Qty: 30 0RF Taper: Prednisone 40 mg daily for 3 Days and 0 Hour 30 mg daily for 3 Days and 0 Hour 20 mg daily for 3 Days and 0 Hour 10 mg daily for 3 Days and 0 Hour Rx Instructions: see taper instructions Continued (DME) nebulizers Misc See Rx Instructions .Route Qty: 1 0RF Rx Instructions: Use every 4 hours as needed for SOB, wheezing albuterol sulfate 90 mcg/actuation HFA aerosol inhaler 2 puff inhalation Q4-6H PRN (Reason: shortness of breath or wheezing) Qty: 3 4RF albuterol sulfate 2.5 mg /3 mL (0.083 %) solution for nebulization 2.5 mg inhalation Q4-6H PRN (Reason: for wheezing) Qty: 150 3RF methadone [Methadose] 10 mg/mL Concentrate 58 mg PO DAILY Rx Instructions: Verified dose on 07/06/24 with [facility] [phone] montelukast 10 mg Tablet 10 mg PO BEDTIME PRN (Reason: Allergies) chlorhexidine gluconate 0.12 % mouthwash 15 ml PO NEEDED Rx Instructions: SWISH AND SPIT 15 ML IN THE MOUTH FOR 30 SEC OR THROAT IF NEEDED FOR UP TO 14 DAYS. DO NOT SWALLOW Trelegy Ellipta 200-62.5-25 mcg blister with device 1 ea inhalation DAILY fluticasone furoate-vilanterol [Breo Ellipta] 200-25 mcg/dose blister with device 1 ea INHALATION DAILY Eliquis 5 mg tablet 5 mg PO BID 90 Days Qty: 180 4RF Discharge Orders: Discharge Order (Routine); Ordered 09/22/24 Ordered By: Chris Carreon Diet: Advance to usual diet Activity on Discharge: As tolerated Stand Alone Forms: Patient Portal Discharge page Print Language: Portuguese Care Plan Goals: Continue tapering dose Prednisone as prescribed Azithromycin for 3 more days Use home nebulizer 3-4 times a day for the next 3 days then as needed Singulair sent , take at bedtime Follow with pulmonology as needed Avoid smoking\drugs Health Concerns: COPD\Asthma Plan of Treatment: Steroids, Azithromycin Assessment: as above
--- NOTE | 2024-09-22 12:01 | MHC.CM.PN ---
PT REPORTS HE LIVES WITH HIS S/O AND IS INDEPENDENT WITH SELF CARE HE HAS HOME O2 FROM [facility] AND WILL BORROW A POTABLE TANK FOR TRANSPORT HE HAS NO PCP, BUT SAYS HE IS WORKING ON AN APPT HE DECLINES A HCP PT WILL DC HOME TODAY VIA [facility] TRANSPORT
[2024-09-22 12:22] VITALS: BP 124/88; PULSE 91; RESP 20; TEMP 36.2; O2SAT 93
== END 2024-09-22 12:33 | disposition home or self-care (01) | DRG 133 ==
LOC: HO.ED 07:30 → HO.EDOVER 07:48 → HO.S3 09-22 07:45
PROVIDERS: Admitting Provider Student in an Organized Health Care Education/Training Program; Emergency Provider Emergency Medicine; Visit Provider Student in an Organized Health Care Education/Training Program
DX: J96.01 Acute respiratory failure with hypoxia (principal); J44.1 Chronic obstructive pulmonary disease with (acute) exacerbation; J45.901 Unspecified asthma with (acute) exacerbation; F11.20 Opioid dependence, uncomplicated; Z20.822 Contact with and (suspected) exposure to COVID-19; Z86.718 Personal history of other venous thrombosis and embolism; Z86.711 Personal history of pulmonary embolism; Z87.891 Personal history of nicotine dependence; Z79.01 Long term (current) use of anticoagulants; Z79.51 Long term (current) use of inhaled steroids; Z79.899 Other long term (current) drug therapy
CPT/HCPCS: 0241U; 36415; 71045; 80048; 82803; 83605; 84484; 85025; 87040; 93005; 94640; 99285; J0456; J0696; J2919

== ENCOUNTER → 2024-09-20 01:34 | Outpatient (BNV) | payer OTHER, SELFPAY | PROVIDERS: Admitting Provider Student in an Organized Health Care Education/Training Program; Emergency Provider Emergency Medicine; Visit Provider Internal Medicine Cardiovascular Disease | DX: I51.7 Cardiomegaly (principal) | CPT/HCPCS: 93010 ==

== ENCOUNTER → 2024-09-20 09:18 | Outpatient (BNV) | payer OTHER, SELFPAY | PROVIDERS: Admitting Provider Student in an Organized Health Care Education/Training Program; Emergency Provider Emergency Medicine; Visit Provider Student in an Organized Health Care Education/Training Program | DX: J45.901 Unspecified asthma with (acute) exacerbation (principal); J44.1 Chronic obstructive pulmonary disease with (acute) exacerbation | CPT/HCPCS: 99223; 99232 ==

== ENCOUNTER 2024-10-21 14:44 | Outpatient (AMB) | payer OTHER, SELFPAY ==
[2024-10-21 14:46] VITALS: BP 122/64; PULSE 89; O2SAT 94; BMI 17.4
--- NOTE | 2024-10-21 14:46 | MHC.OFFVIS ---
Vital Signs 10/21/24 14:46 Height 5 ft 11 in Weight 125 lb BMI 17.4 BP 122/64 Blood Pressure Location Lt brachial Position Sitting Pulse 89 Pulse Source Pulse Oximeter Pulse Oximetry (%) 94 Oxygen Delivery Method Room Air Intake Visit Reasons: Asthma Allergies walnut Allergy (Unknown, Verified 10/21/24 14:49) SWELLING buprenorphine (From Suboxone) Allergy (Verified 10/21/24 14:49) swelling in his hands and rash naloxone (From Suboxone) Allergy (Verified 10/21/24 14:49) swelling in his hands and rash NSAIDS/ASA Allergy (Unknown, Uncoded 09/20/24 01:37) unknown walnuts Allergy (Unknown, Uncoded 09/20/24 01:37) anaphylaxis HPI HPI Asthma: Details: 49-year-old gentleman with underlying history of asthma, PE? now on Eliquis, cocaine induced lung injury, severe persistent allergic asthma, PE now on Eliquis, and environmental allergies.? His symptoms were previously controlled on Xolair, however patient recently was not able to get his Xolair injections. He continues on Trelegy, Singulair, and albuterol MDI/nebs with suboptimal control of his symptoms. He complains of another exacerbation at this time. [facility] Medical History Acute on chronic respiratory failure with hypoxia and hypercapnia Inhales drugs Heroin use Allergic asthma with status asthmaticus Moderate persistent asthma with exacerbation Opiate abuse, episodic Left against medical advice Lung problems from crack cocaine Chronic lung disease Asthma Pulmonary emboli Family History Other Family history non-contributory Social History Household Members: Significant Other Caregiver staying overnight: No Housing: House Do you presently have visiting nurse or other home services: No Unable to assess alcohol history related to: Unable to respond Alcohol intake: never Patient Tobacco Use Status: Former Tobacco user Tobacco use type: Cigarette Cigarettes Per Day: 1 e-Cigarette/Vaping Use: Never Used Second Hand Smoke Exposure: No Substance Use Type: Heroin Advance Directives Date on File: 06/22/24 service: No Current occupational status: unemployed Cognitive needs: No Hearing needs: No Vision needs: No Review of Systems Const Denies daytime sleepiness, Denies excessive sweating, Denies fatigue, Denies fever(s), Denies lethargy, Denies malaise, Denies night sweats, Denies snoring and Denies weight loss Eyes Denies blurry vision and Denies itchy eyes ENT Denies nasal congestion, Denies post nasal drip, Denies sinus pain, Denies sinus pressure and Denies other ( Thrush) Card Denies chest pain, Denies pedal edema, Denies dyspnea, Denies orthopnea and Denies paroxysmal nocturnal dyspnea Resp Denies cough, Denies hemoptysis, Denies excessive phlegm production, Denies dyspnea, Denies snoring and Reports wheezing GI Denies abdominal pain and Denies heartburn Musc Denies myalgias, Denies arthralgias and Denies joint swelling Skin/Breast Denies rash Neuro Denies memory loss and Denies seizure-like activity Psych Denies abnormal sleep pattern, Denies anxiety and Denies memory loss Endo Denies excessive sweating, Denies fatigue and Denies heat intolerance [place]/Lymph Denies easy bruising Aller/Immun Denies itchy eyes, Denies seasonal rhinorrhea and Reports wheezing Physical Exam Vital Signs: Last Vital Signs Pulse 89 10/21/24 14:46 BP 122/64 10/21/24 14:46 Pulse Ox 94 10/21/24 14:46 Oxygen Delivery Method Room Air 10/21/24 14:46 BMI result Body Mass Index 17.4 Const General: no acute distress and alert Nutritional Appearance: not obese Orientation/consciousness: Other orientation findings ( oriented) HEENT Head: Yes atraumatic Eyes General: appearance normal, both eyes and all related structures Sclerae: sclerae normal EOM: EOMs intact bilaterally Neck Neck: Yes supple Lymphatic: no lymphadenopathy noted Resp Effort & Inspection: normal respiratory effort and no use of accessory muscles Auscultation: clear to auscultation bilaterally Cardio Rate: regular rate Rhythm: regular rhythm Heart sounds: no gallops, no murmurs and no rubs Skin General skin exam: other ( warm) Extrem General: No clubbing, No cyanosis and No edema Assessment & Plan Assessment & Plan (1) Asthma: Code(s): J45.909 - Unspecified asthma, uncomplicated Category: Medical Plan: Suboptimal control on Trelegy, Singulair, and albuterol MDI/nebs. Also with an acute exacerbation. Will treat acute exacerbation with prednisone taper. Will request Xolair approval. (2) Environmental allergies: Code(s): Z91.09 - Other allergy status, other than to drugs and biological substances Category: Medical Plan: Expect to improve on Xolair. (3) Other pulmonary embolism without acute cor pulmonale: Code(s): I26.99 - Other pulmonary embolism without acute cor pulmonale Category: Medical Plan: Continue on Eliquis. Medications: New prednisone Take 4 tabs daily for 7 days, then go down by 1 tab every 7 days 10 mg PO DIRECTED 70 tabs 0RF azithromycin For 250 mg dose pack: take 500 mg today (day 1), then 250 mg for 4 days (days 2-5) PO 6 tabs 0RF Coding Level of Care Code Est Pt Level 4 (38075) Complex EM visit Add On G2211 Diagnoses Asthma J45.909 Environmental allergies Z91.09 Other pulmonary embolism without acute cor pulmonale I26.99
--- OUTSIDE RECORDS SUMMARY | 2024-10-21 16:06 | XMS_ITS | Encounter Summary ---
Author Organization [employer] Address [address] [facility] [address] [place] [address] Care Team Providers Care Learning And Development Officer Name Role Phone Unavailable Primary Care Provider Unavailabl e Reason for Visit * Reason Comments Med Refill Encounter Details Date Type Department Care Team (Late st Contact Info) Description 08/29/2024 Refill [facility] ADULT DENTAL [address] [place], [place] [phone] Abelino López DMD [address] [place] [address] Social History Tobacco Use Types Packs/Day Years [...] Telephone Encounter - Abelino López DMD - 08/29/2024 8:08 AM EDT Approving, but needs appt for additional refills. documented in this encounter Plan of Treatment Not on file documented as of this encounter Visit Diagnoses Not on filedocumented in this encounter
== END 2024-10-21 15:03 | disposition home or self-care (01) ==
LOC: HO.HPS 14:45
PROVIDERS: Visit Provider Internal Medicine Pulmonary Disease
DX: J45.909 Unspecified asthma, uncomplicated (principal); Z91.09 Other allergy status, other than to drugs and biological substances; I26.99 Other pulmonary embolism without acute cor pulmonale
CPT/HCPCS: 99214; G2211

== ENCOUNTER → 2024-10-21 14:44 | Outpatient (BNVA) | payer OTHER, SELFPAY | PROVIDERS: Visit Provider Internal Medicine Pulmonary Disease | DX: J45.50 Severe persistent asthma, uncomplicated (principal); Z91.09 Other allergy status, other than to drugs and biological substances; I26.99 Other pulmonary embolism without acute cor pulmonale | CPT/HCPCS: 99212 ==

== ENCOUNTER 2024-11-10 09:27 | Emergency (ER) | payer OTHER, SELFPAY ==
--- NOTE | ~2024-11-10 | XR_ITS ---
EXAMINATION: XR FEMUR, LEFT CLINICAL INFORMATION: Recent ORIF left hip, felt October 03, 2024, persistent pain, no new trauma COMPARISON: None available. TECHNIQUE: AP pelvis and two-view left hip. FINDINGS: Postoperative changes are seen in the left hip fixing a recent intertrochanteric fracture. There is a lag screw with short lateral plate fixed with 2 distal cortical screws. Hardware appears intact. There is anatomic positioning of the fracture fragments. No other fracture is evident. Somewhat oval calcific density is visible in the soft tissues lateral to the lower aspect of the greater trochanter. XR/XR femur LT 2V IMPRESSION: Unremarkable ORIF intertrochanteric fracture of the left femur. Fracture line remains visible. Possible left gluteal calcific tendinopathy. Focal calcific density is present lateral to the lower portion of the left greater trochanter. Electronically signed by: Jett Mendoza MD 11/10/2024 11:10 AM EDT
--- NOTE | ~2024-11-10 | XR_ITS ---
EXAMINATION: XR KNEE, LEFT CLINICAL INFORMATION: recent ?femur fx with repair, fall COMPARISON: None available. TECHNIQUE: Four views of the left knee. FINDINGS: There is no joint effusion. There is minimal narrowing of the lateral and medial joint spaces. There are no marginal osteophytes. No fracture line is evident. XR/XR knee LT 3V IMPRESSION: Mild nonspecific narrowing of the medial and lateral joint spaces. Electronically signed by: Jett Mendoza MD 11/10/2024 11:11 AM EDT
--- NOTE | ~2024-11-10 | XR_ITS ---
EXAMINATION: AP pelvis and two-view left hip CLINICAL INFORMATION: Recent ORIF left hip, felt October 03, 2024, persistent pain, no new trauma COMPARISON: None available. TECHNIQUE: AP pelvis and two-view left hip. FINDINGS: Postoperative changes are seen in the left hip fixing a recent intertrochanteric fracture. There is a lag screw with short lateral plate fixed with 2 distal cortical screws. Hardware appears intact. There is anatomic positioning of the fracture fragments. No other fracture is evident. Somewhat oval calcific density is visible in the soft tissues lateral to the lower aspect of the greater trochanter. XR/XR hip LT w PEL1V IMPRESSION: Unremarkable ORIF intertrochanteric fracture of the left femur. Fracture line remains visible. Possible left gluteal calcific tendinopathy. Focal calcific density is present lateral to the lower portion of the left greater trochanter. Electronically signed by: Jett Mendoza MD 11/10/2024 11:15 AM EDT
[2024-11-10 09:42] VITALS: BP 118/65; PULSE 92; RESP 16; O2SAT 98; BMI 21.8
--- NOTE | 2024-11-10 10:24 | ED_ITS ---
HPI - General Adult General Chief complaint: General Medical Stated complaint: fall injury Time Seen by Provider: 11/10/24 10:23 Source: patient and RN notes reviewed Mode of arrival: ambulatory Limitations: no limitations History of Present Illness ED Provider: Leanne Pimentel PA-C HPI narrative: This is a 49-year-old male who presents emergency department for evaluation of ongoing left leg pain. Patient states that he was at a wedding in [place] and the other person fell onto his left leg ultimately fracturing his left femur. This required emergent surgery. He states that he drove home 2 days ago, and got out of the car every hour and a half to prevent blood clots. Patient states that he is here today as he needs follow-up for Orthopedics, he was unable to follow-up with his primary care physician as his primary care can not accept his new insurance. He also was previously prescribed Percocet, which he ran out of. He does have a history of opioid use disorder on methadone, last received his dose this morning. He does admit that he accidentally fell onto his left leg yesterday while using his crutches. No head strike or LOC. no other complaints or concerns at this time. MD complaint: Left leg pain Onset (ago): week(s) Related Data Home Medications ?Medication ?Instructions ?Recorded ?Confirmed methadone 10 mg/mL oral 58 mg PO DAILY 04/18/2309/07 concentrate (Methadose) montelukast 10 mg tablet 10 mg PO BEDTIME PRN Allergi es 06/22/24 09/20/24 chlorhexidine gluconate 0.12 % 15 ml PO NEEDED 09/0709/20/24 mouthwash fluticasone fur. 200 mcg-umeclid 1 ea inhalation DAILY 09/20/24 09/20/24 62.5 mcg-vilant 25 mcg inhalat.powder (Trelegy Ellipta) fluticasone furoate 200 1 ea inhalation DAILY mcg-vilanterol 25 mcg/dose inhalation powder (Breo Ellipta) Previous Rx's ?Medication ?Instructions ?Recorded nebulizers #1 ea 11/26/20 apixaban 5 mg tablet (Eliquis) 5 mg PO BID 90 days #18 0 tabs 04/01/24 albuterol sulfate 90 mcg/actuation 2 puff inhalation Q 4-6H PRN 04/10/24 aerosol inhaler shortness of breath or wheez ing #3 ea montelukast 10 mg tablet 10 mg PO BEDTIME #90 tabs albuterol sulfate 2.5 mg/3 mL 2.5 mg (3 mL) inhalation Q4-6H PRN 10/20/24 (0.083 %) solution for nebulization for wheezing #150 mL azithromycin 250 mg tablet See Rx Instructions PO .COM PLEX #6 10/21/24 tabs prednisone 10 mg tablet 10 mg PO DIRECTED #70 tab s 10/21/24 acetaminophen 500 mg tablet 1,000 mg (2 x 500 mg) PO Q 8H PRN 11/10/24 (Tylenol Extra Strength) pain #30 tabs Allergies Allergy/AdvReac Type Severity Reaction Status Date / Time walnut Allergy Severe SWELLING Verified 11/10/24 09:48 buprenorphine (From Suboxone) Allergy swelling Verified 11/10/24 09:48 in his hands and rash naloxone (From Suboxone) Allergy swelling Verified 11/10/24 09:48 in his hands and rash walnuts Allergy Severe anaphylaxis Uncoded 11/10/24 09:42 NSAIDS/ASA Allergy Unknown unknown Uncoded 09/20/24 01:37 Review of Systems Review of Systems: Yes all other systems are reviewed and are negative Constitutional: Constitutional: Reports as per [facility] Past Medical History Medical History Acute on chronic respiratory failure with hypoxia and hypercapnia Inhales drugs Heroin use Allergic asthma with status asthmaticus Moderate persistent asthma with exacerbation Opiate abuse, episodic Left against medical advice Lung problems from crack cocaine Chronic lung disease Asthma Pulmonary emboli Family History Family History Other Family history non-contributory Social History Social History Household Members: Significant Other Caregiver staying overnight: No Housing: House Do you presently have visiting nurse or other home services: No Unable to assess alcohol history related to: Unable to respond Alcohol intake: never Patient Tobacco Use Status: Former Tobacco user Tobacco use type: Cigarette Cigarettes Per Day: 1 e-Cigarette/Vaping Use: Never Used Second Hand Smoke Exposure: No Substance Use Type: Heroin Advance Directives Date on File: 06/22/24 service: No Current occupational status: unemployed Cognitive needs: No Hearing needs: No Vision needs: No Physical Exam ED Vital Signs: Vital Signs - 24 hr 11/10/24 09:42 11/10/24 11:54 11/10/24 13:23 Temperature 97.2 F 97.2 F Pulse Rate 92 76 76 Respiratory Rate 16 18 18 Blood Pressure 118/65 119/48 L 119/48 L Pulse Oximetry 98 98 98 Oxygen Delivery Method Room Air Room Air Room Air BMI result Body Mass Index 21.8 Const General: cooperative, comfortable and no acute distress Orientation/consciousness: patient oriented x3 Limitations: no limitations HENMT Head: Yes normal to inspection, Yes normocephalic and Yes atraumatic Ears: hearing grossly normal bilaterally General nose exam: Normal external nose present Face and sinus: Yes normal facial exam Mouth: Normal oral and palatal mucosa present, oropharynx normal and moist mucous membranes Throat: Yes posterior oropharynx normal Eyes General: appearance normal, both eyes and all related structures Eyelids: Yes eyelids normal Conjunctivae: conjunctivae normal Sclerae: sclerae normal Pupils: Equal, round and reactive pupils present EOM: EOMs intact bilaterally Neck Neck: Yes normal visual inspection, Yes full ROM and Yes no lymphadenopathy Lymphatic: no lymphadenopathy noted Chest Chest palpation & inspection: normal inspection of the chest Resp Effort & Inspection: normal respiratory effort and able to speak in complete sentences Auscultation: clear to auscultation bilaterally, no crackles, no rales, no rhonchi and no wheezes Cardio Rate: regular rate Rhythm: regular rhythm Heart sounds: S1 normal heart sound present and S2 normal heart sound present GI Inspection: Yes normal to inspection Skin General skin exam: no rashes or lesions noted Trauma: no lacerations or abrasions Wounds: no wounds Neuro General: patient oriented x3 and moves all extremities Cranial nerves: Yes Equal, round and reactive pupils present Extrem Other: No obvious bony deformity or swelling. Pale surgical incision noted overlying the left hip. Mild tenderness palpation, no overlying skin changes. General: Yes normal to inspection Right upper extremity: normal to inspection Left upper extremity: normal to inspection Right lower extremity: normal to inspection Left lower extremity: normal to inspection Medications Administered Discontinued Medications Generic Name Dose Route Start Last Admin Trade Name Freq PRN Reason Stop Dose Admin Acetaminophen 975 mg 11/10/24 10:37 11/10/24 11:06 Acetaminophen 325 Mg Tablet PO 11/10/24 10:38 975 mg ONCE ONE Administration Medical Decision Making Medical Decision Making [facility] Narrative: This is a 49-year-old male who presents emergency department with concerns of left leg pain. Patient has sustained a femur fracture and [place] requiring emergent repair on November 02. Patient states that he is here today as he does not have a environmental remediation specialist to follow-up with, and did admit to having a fall yesterday as he misstepped with his crutch. He landed onto his left leg. On arrival, vital signs within normal limits. He is speaking in full sentences under no acute distress. Will obtain x-rays to ensure no new injury from the fall yesterday. No head strike or LOC. will medicate with Tylenol. He also already received his dose of methadone this morning. >> x-rays returned, no acute findings. Discussed findings with patient. He will follow-up with the orthopedic team as he is unable to follow-up with the orthopedist who performed the surgery as this was done in [place]. Given strict return precautions. He was discharged with Tylenol. He already has a pair of crutches. Patient stable for discharge. Differential Diagnosis Differential Diagnoses: The differential diagnosis associated with the presentation includes Fracture, contusion, dislocation, malalignment of hardware Admission/Observation Consideration of admission/observation: Escalation of care including admission/observation considered Lab Data [facility] Lab Attestation statement: I reviewed the patient's lab results. Radiology Impression Discussion of test interpretation with radiology: I have reviewed the radiologist's reading. Radiologist Impression: FINDINGS: There is no joint effusion. There is minimal narrowing of the lateral and medial joint spaces. There are no marginal osteophytes. No fracture line is evident. XR/XR knee LT 3V IMPRESSION: Mild nonspecific narrowing of the medial and lateral joint spaces. Electronically signed by: Jett Mendoza MD 11/10/2024 11:11 AM EDT RP Dictated By: Jett Mendoza MD Signed By: <Electronically signed by Jett Mendoza MD in OV> XR/XR hip LT w PEL1V IMPRESSION: Unremarkable ORIF intertrochanteric fracture of the left femur. Fracture line remains visible. Possible left gluteal calcific tendinopathy. Focal calcific density is present lateral to the lower portion of the left greater trochanter. Electronically signed by: Jett Mendoza MD 11/10/2024 11:15 AM EDT RP Dictated By: Jett Mendoza MD Addendum: This is a dictation for 2 view x-ray left femur Electronically signed by: Jett Mendoza MD 11/10/2024 11:14 AM EDT RP Addendum Dictated By: Jett Mendoza MD Addendum Signed By: <Electronically signed by Jett Mendoza MD in OV> 11/10/24 1114 Addendum Cosigned By: DD/ /01/957 TD/TT: 11/10/2408/01/1102 EXAMINATION: XR FEMUR, LEFT CLINICAL INFORMATION: Recent ORIF left hip, felt October 03, 2024, persistent pain, no new trauma COMPARISON: None available. TECHNIQUE: AP pelvis and two-view left hip. FINDINGS: Postoperative changes are seen in the left hip fixing a recent intertrochanteric fracture. There is a lag screw with short lateral plate fixed with 2 distal cortical screws. Hardware appears intact. There is anatomic positioning of the fracture fragments. No other fracture is evident. Somewhat oval calcific density is visible in the soft tissues lateral to the lower aspect of the greater trochanter. XR/XR femur LT 2V IMPRESSION: Unremarkable ORIF intertrochanteric fracture of the left femur. Fracture line remains visible. Possible left gluteal calcific tendinopathy. Focal calcific density is present lateral to the lower portion of the left greater trochanter. Electronically signed by: Jtet Mendoza MD 11/10/2024 11:10 AM EDT RP Dictated By: Jett Mendoza MD External Record Review External record reviewed: Inpatient record, Office record, Outpatient record, Prior outpatient labs, Prior outpatient radiology, Primary care record and Outside ED record Discharge Plan Discharge Clinical Impression: S/P ORIF (open reduction internal fixation) fracture, Fracture, intertrochanteric, left femur Patient Disposition: Home, Self-Care Instructions: Hip Fracture (ED), ORIF of Hip Fracture (DC) Additional Instructions: You were seen in the emergency department. You have no new injuries to your leg. You need to follow-up with the environmental remediation specialist, call today to make an appo intment. Please continue taking Tylenol as needed. If any new or worsening symptoms occur including but not limited to worsening pain, increased redness, swelling, please seek emergent care. Prescriptions: New acetaminophen [Tylenol Extra Strength] 500 mg tablet 1,000 mg PO Q8H PRN (Reason: pain) Qty: 30 0RF No Action (DME) nebulizers Misc See Rx Instructions .Route Qty: 1 0RF Rx Instructions: Use every 4 hours as needed for SOB, wheezing albuterol sulfate 90 mcg/actuation HFA aerosol inhaler 2 puff inhalation Q4-6H PRN (Reason: shortness of breath or wheezing) Qty: 3 4RF albuterol sulfate 2.5 mg /3 mL (0.083 %) solution for nebulization 2.5 mg inhalation Q4-6H PRN (Reason: for wheezing) Qty: 150 3RF methadone [Methadose] 10 mg/mL Concentrate 58 mg PO DAILY Rx Instructions: Verified dose on 07/06/24 with [facility] [phone] montelukast 10 mg Tablet 10 mg PO BEDTIME PRN (Reason: Allergies) chlorhexidine gluconate 0.12 % mouthwash 15 ml PO NEEDED Rx Instructions: SWISH AND SPIT 15 ML IN THE MOUTH FOR 30 SEC OR THROAT IF NEEDED FOR UP TO 14 DAYS. DO NOT SWALLOW Trelegy Ellipta 200-62.5-25 mcg blister with device 1 ea inhalation DAILY fluticasone furoate-vilanterol [Breo Ellipta] 200-25 mcg/dose blister with device 1 ea INHALATION DAILY montelukast 10 mg Tablet 10 mg PO BEDTIME Qty: 90 0RF prednisone 10 mg tablet 10 mg PO DIRECTED Qty: 70 0RF Rx Instructions: Take 4 tabs daily for 7 days, then go down by 1 tab every 7 days azithromycin 250 mg tablet See Rx Instructions PO .COMPLEX Qty: 6 0RF Rx Instructions: For 250 mg dose pack: take 500 mg today (day 1), then 250 mg for 4 days (days 2-5) PO Eliquis 5 mg tablet 5 mg PO BID 90 Days Qty: 180 4RF Referrals: [facility] [Provider Group] Interventions: ED Discharge Assessment Last Done: 11/10/24 13:23 Discharge Date/Time: 11/10/24 13:23 Print Language: Bahamian
--- OUTSIDE RECORDS SUMMARY | 2024-11-10 11:11 | XMS_ITS | Encounter Summary ---
Author Organization [employer] Address [address] [facility] [address] [place] [address] Care Team Providers Care Optical Fabricator Name Role Phone Unavailable Primary Care Provider Unavailabl e Reason for Visit * Reason Comments Med Refill Encounter Details Date Type Department Care Team (Late st Contact Info) Description 08/29/2024 Refill [facility] ADULT DENTAL [address], [place] [phone] Abelino López DMD [address] [place] [address] Social History Tobacco Use Types Packs/Day Years [...]
[2024-11-10 11:54] VITALS: BP 119/48; PULSE 76; RESP 18; TEMP 36.2; O2SAT 98
[2024-11-10 13:23] VITALS: BP 119/48; PULSE 76; RESP 18; TEMP 36.2; O2SAT 98
== END 2024-11-10 13:23 | disposition home or self-care (01) ==
PROVIDERS: Emergency Provider Emergency Medicine Emergency Medical Services
DX: S72.92XB Unspecified fracture of left femur, initial encounter for open fracture type I or II (principal); M79.605 Pain in left leg; F11.90 Opioid use, unspecified, uncomplicated; W19.XXXA Unspecified fall, initial encounter; Y93.9 Activity, unspecified; Y92.9 Unspecified place or not applicable; Y99.9 Unspecified external cause status
CPT/HCPCS: 73502; 73552; 73562; 99283; 99284

== ENCOUNTER → 2024-11-10 10:37 | Outpatient (BNV) | payer OTHER, SELFPAY | PROVIDERS: Emergency Provider Emergency Medicine Emergency Medical Services; Visit Provider Radiology Diagnostic Radiology | DX: M25.552 Pain in left hip (principal); S72.142D Displaced intertrochanteric fracture of left femur, subsequent encounter for closed fracture with routine healing; Z04.3 Encounter for examination and observation following other accident; W19.XXXD Unspecified fall, subsequent encounter | CPT/HCPCS: 73502; 73552; 73562 ==

== ENCOUNTER 2024-11-14 08:16 | Outpatient (REF) | payer OTHER, SELFPAY ==
--- OUTSIDE RECORDS SUMMARY | 2024-11-14 08:41 | XMS_ITS | Encounter Summary ---
Author Organization [employer] Address [address] [facility] [address] [place] [address] Care Team Providers Care Software Writer Name Role Phone Unavailable Primary Care Provider Unavailabl e Reason for Visit * Reason Comments Med Refill Encounter Details Date Type Department Care Team (Late st Contact Info) Description 08/29/2024 Refill [facility] ADULT DENTAL [address], [place] [phone] Abelino López DMD [address] [place] [address] Social History Tobacco Use Types Packs/Day Years [...]
== END 2024-11-14 08:17 | disposition home or self-care (01) ==
LOC: HO.HOSX 08:16
PROVIDERS: Visit Provider Physician Assistant
DX: Z13.89 Encounter for screening for other disorder (principal)

== ENCOUNTER 2024-11-17 13:10 | Outpatient (AMB) | payer OTHER, SELFPAY ==
--- OUTSIDE RECORDS SUMMARY | 2024-11-17 13:21 | XMS_ITS | Encounter Summary ---
Author Organization [employer] Address [address] [facility] [address] [place] [address] Care Team Providers Care Property Condition Assessor Name Role Phone Unavailable Primary Care Provider Unavailabl e Reason for Visit * Reason Comments Med Refill Encounter Details Date Type Department Care Team (Late st Contact Info) Description 08/29/2024 Refill [facility] ADULT DENTAL [address] [place], [place] [phone] Abelino López DMD [address] [place] [address] Social History Tobacco Use Types Packs/Day Years [...]
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
[2024-11-17 13:27] VITALS: BMI 21.8
== END 2024-11-17 13:57 | disposition home or self-care (01) ==
LOC: HO.HOS 13:10
PROVIDERS: Visit Provider Physician Assistant
DX: S72.92XA Unspecified fracture of left femur, initial encounter for closed fracture (principal)
CPT/HCPCS: 99204

== ENCOUNTER 2024-11-17 13:12 | Outpatient (REF) | payer OTHER, SELFPAY ==
--- NOTE | ~2024-11-17 | XR_ITS ---
EXAMINATION: XR FEMUR, LEFT CLINICAL INFORMATION: S72.92XA - Unspecified fracture of left femur, initial encounter for adore... COMPARISON: November 10, 2024. TECHNIQUE: AP and cross lateral view.. FINDINGS: Dynamic metallic screw placement in the proximal left femur that appears intact with normal alignment. There is an intertrochanteric fracture with the minimal callus formation. Bicompartmental degenerative changes, left knee. XR/XR femur LT 2V IMPRESSION: Minimal healing fracture. Stable positioning dynamic screw left femur. Electronically signed by: Mata Shahid MD 11/17/2024 02:36 PM EDT
== END 2024-11-17 13:13 | disposition home or self-care (01) ==
LOC: HO.HOSX 13:12
PROVIDERS: Visit Provider Physician Assistant
DX: S72.92XA Unspecified fracture of left femur, initial encounter for closed fracture (principal); Z79.899 Other long term (current) drug therapy; W19.XXXA Unspecified fall, initial encounter
CPT/HCPCS: 73552; 99202

== ENCOUNTER → 2024-11-17 13:14 | Outpatient (BNV) | payer OTHER, SELFPAY | PROVIDERS: Visit Provider Radiology Diagnostic Radiology | DX: S72.142D Displaced intertrochanteric fracture of left femur, subsequent encounter for closed fracture with routine healing (principal) | CPT/HCPCS: 73552 ==

== ENCOUNTER 2024-12-23 09:10 | Outpatient (AMB) | payer OTHER, SELFPAY ==
--- NOTE | 2024-12-23 09:25 | A.OFFVIS_ITS ---
Vital Signs 12/23/24 09:28 Height 5 ft 10 in Weight 152 lb BMI 21.8 Intake Visit Reasons: OV - left femur ORIF 11/02/24, [place], [place] Intake Note: Shiraz is a 49 year old male who presents today for a follow up of his left femur ORIF 11/02/24. At his last visit he was referred to physical therapy and was given pain medication. Patient states he is doing okay having off and on pain. he has been taking his pain medication every 12 hours. He is having trouble with making an appointment with physical therapy due to his phone shutting off but he was given the [facility] number in office so he can call today. Allergies walnut Allergy (Severe, Verified 12/23/24 09:28) SWELLING buprenorphine (From Suboxone) Allergy (Verified 12/23/24 09:28) swelling in his hands and rash naloxone (From Suboxone) Allergy (Verified 12/23/24 09:28) swelling in his hands and rash walnuts Allergy (Severe, Uncoded 11/10/24 09:42) anaphylaxis NSAIDS/ASA Allergy (Unknown, Uncoded 09/20/24 01:37) unknown HPI HPI OV - left femur ORIF 11/02/24, [place], [place]: Details: Mr. Cruz is a 49-year-old male who presents to the office today for routine follow-up status post left femur ORIF performed on 11/02/2024 at a hospital in [place]. Since his last appointment, the patient states that he has an unable to attend physical therapy stating that he does not have a workable phone in order to do this. He reports that he has continued to be weight-bearing with the use of crutches. He feels weakness in the right quad and feels as though there are occasions where the left lower extremity will give out on him. Pain is managed. No additional complaints. [facility] Medical History Acute on chronic respiratory failure with hypoxia and hypercapnia Inhales drugs Heroin use Allergic asthma with status asthmaticus Moderate persistent asthma with exacerbation Opiate abuse, episodic Left against medical advice Lung problems from crack cocaine Chronic lung disease Asthma Pulmonary emboli Family History Other Family history non-contributory Social History Household Members: Significant Other Caregiver staying overnight: No Housing: House Do you presently have visiting nurse or other home services: No Unable to assess alcohol history related to: Unable to respond Alcohol intake: never Patient Tobacco Use Status: Former Tobacco user Tobacco use type: Cigarette Cigarettes Per Day: 1 e-Cigarette/Vaping Use: Never Used Second Hand Smoke Exposure: No Substance Use Type: Heroin Advance Directives Date on File: 06/22/24 service: No Current occupational status: unemployed Cognitive needs: No Hearing needs: No Vision needs: No Review of Systems Const All systems reviewed & are unremarkable except as noted in HPI and below Physical Exam Vital Signs: BMI result Body Mass Index 21.8 Const General: cooperative, healthy appearing and no acute distress Resp Effort & Inspection: normal respiratory effort and able to speak in complete sentences Extrem Other: Left hip able to perform straight leg raise with quad weakness. Good internal external rotation with mild pain. Able to dorsiflex and plantar flex. Sensation intact. NVI. Psych Appearance: grossly normal Mental Status: mental status grossly normal Attitude: cooperative Assessment & Plan Assessment & Plan (1) Femur fracture, left: Code(s): S72.92XA - Unspecified fracture of left femur, initial encounter for closed fracture Category: Medical Plan Mr. Cruz is a 49-year-old male who presents to the office today for routine follow-up status post left femur ORIF performed on 11/02/2024 at a hospital in [place]. Since his last appointment, the patient states that he has an unable to attend physical therapy stating that he does not have a workable phone in order to do this. He reports that he has continued to be weight-bearing with the use of crutches. He feels weakness in the right quad and feels as though there are occasions where the left lower extremity will give out on him. Pain is managed. No additional complaints. While in the office today, I have stressed the importance of physical therapy with this patient. Additionally, we contacted the physical therapy office here at [facility] and assisted the patient with scheduling an appointment. The soonest availability is 01/07/2025 at 09:00. The patient will continue making a follow up appointments as he attends his sessions. I educated the patient that it may take up to 1 year for full recovery after hip fracture. He will follow up with me in 6 weeks with repeat x-rays, sooner if needed. X-rays of the left hip which were obtained while in the office today and were reviewed by me, Daysi Garcia PA-C, revealed intact orthopedic hardware with routine healing. Orders: Orders PT Evaluation and Treatment Today S72.92XA - Unspecified fracture of left femur, initial encounter for closed fracture XR hip LT min 2V Today M25.559 - Pain in unspecified hip Coding Level of Care Code Est Pt Level 3 (95860) Diagnoses Femur fracture, left S72.92XA
[2024-12-23 09:28] VITALS: BMI 21.8
--- OUTSIDE RECORDS SUMMARY | 2024-12-23 11:29 | XMS_ITS | Encounter Summary ---
Author Organization [employer] Address [address] [facility] [address] [place] [address] Care Team Providers Care Universal Grinder Set Up Operator Name Role Phone Unavailable Primary Care Provider Unavailabl e Reason for Visit * Reason Comments Med Refill Encounter Details Date Type Department Care Team (Late st Contact Info) Description 06/29/2024 Refill [facility] ADULT DENTAL [address] [place], [place] [phone] Lenora Fishman DDS [address], [place] [phone] Social History Tobacco Use Types Packs/Day Years [...]
--- OUTSIDE RECORDS SUMMARY | 2024-12-23 11:29 | XMS_ITS | Encounter Summary ---
Author Organization [employer] Address [address] [facility] 7[address] [place] [address] Care Team Providers Care Concrete Analyst Name Role Phone Unavailable Primary Care Provider Unavailabl e Reason for Visit * Reason Comments Med Refill Encounter Details Date Type Department Care Team (Late st Contact Info) Description 08/06/2024 Refill [facility] ADULT DENTAL [address] [place], [place] [phone] Lenora Fishman DDS [address] [place], [place] [phone] Social History Tobacco Use Types Packs/Day Years [...] Telephone Encounter - Lenora Fishman DDS - 08/07/2024 3:39 PM EDT Approving, but needs appt for additional refills. documented in this encounter Plan of Treatment Not on file documented as of this encounter Visit Diagnoses Not on filedocumented in this encounter
--- OUTSIDE RECORDS SUMMARY | 2024-12-23 11:29 | XMS_ITS | Encounter Summary ---
Author Organization [employer] Address [address] [facility] [address] [place] [address] Care Team Providers Care Multimedia Designer Name Role Phone Unavailable Primary Care Provider Unavailabl e Reason for Visit * Reason Comments Med Refill Encounter Details Date Type Department Care Team (Late st Contact Info) Description 04/05/2024 Refill [facility] ADULT DENTAL [address] [place], [place] [phone] Lenora Fishman DDS [address] [place], [place] [phone] Social History Tobacco Use Types Packs/Day Years [...]
--- OUTSIDE RECORDS SUMMARY | 2024-12-23 11:29 | XMS_ITS | Encounter Summary ---
Author Organization [employer] Address [address] [facility] [address] [place] [address] Care Team Providers Care Cadd Instructor Name Role Phone Unavailable Primary Care Provider Unavailabl e Reason for Visit * Reason Comments Med Refill Encounter Details Date Type Department Care Team (Late st Contact Info) Description 08/06/2024 Refill [facility] ADULT DENTAL [address] [place], [place] [phone] Abelino López DMD [address] [place] [address] Social History Tobacco Use Types Packs/Day Years [...] Telephone Encounter - Abelino López DMD - 08/07/2024 9:21 AM EDT Approving, but needs appt for additional refills. documented in this encounter Plan of Treatment Not on file documented as of this encounter Visit Diagnoses Not on filedocumented in this encounter
--- OUTSIDE RECORDS SUMMARY | 2024-12-23 11:29 | XMS_ITS | Encounter Summary ---
Author Organization [employer] Address [address] [facility] [address] [place] [address] Care Team Providers Care Police Communications Operator Name Role Phone Unavailable Primary Care Provider Unavailabl e Reason for Visit * Reason Comments Med Refill Encounter Details Date Type Department Care Team (Late st Contact Info) Description 08/29/2024 Refill [facility] ADULT DENTAL [address] [place], [place] [phone] Abelino López DMD [address] [place] [address] Social History Tobacco Use Types Packs/Day Years [...]
--- OUTSIDE RECORDS SUMMARY | 2024-12-23 11:29 | XMS_ITS | Encounter Summary ---
Author Organization [employer] Address [address] [facility] [address] [place] [address] Care Team Providers Care Lactation Coordinator Name Role Phone Unavailable Primary Care Provider Unavailabl e Reason for Visit * Reason Comments Med Refill Encounter Details Date Type Department Care Team (Late st Contact Info) Description 05/30/2024 Refill [facility] ADULT DENTAL [address] [place], [place] [phone] Lenora Fishman DDS [address] [place], [place] [phone] Social History Tobacco Use Types Packs/Day Years [...]
--- OUTSIDE RECORDS SUMMARY | 2024-12-23 11:29 | XMS_ITS | Encounter Summary ---
Author Organization [employer] Address [address] [facility] [address] [place] [address] Care Team Providers Care Compounding Assistant Name Role Phone Unavailable Primary Care Provider Unavailabl e Reason for Visit * Reason Comments Med Refill Encounter Details Date Type Department Care Team (Late st Contact Info) Description 09/13/2024 Refill [facility] ADULT DENTAL [address] [place], [place] [phone] Abelino López DMD [address] [place] [address] Social History Tobacco Use Types Packs/Day Years [...] Telephone Encounter - Abelino López DMD - 09/15/2024 8:19 AM EDT Approving, but needs appt for additional refills. documented in this encounter Plan of Treatment Not on file documented as of this encounter Visit Diagnoses Not on filedocumented in this encounter
--- OUTSIDE RECORDS SUMMARY | 2024-12-23 11:29 | XMS_ITS | Encounter Summary ---
Author Organization [employer] Address [address] [facility] [address] [place] [address] Care Team Providers Care International Account Executive Name Role Phone Unavailable Primary Care Provider Unavailabl e Reason for Visit * Reason Comments Med Refill Encounter Details Date Type Department Care Team (Late st Contact Info) Description 07/21/2024 Refill [facility] ADULT DENTAL [address] [place], [place] [phone] Lenora Fishman, DDS [address] [place], [place] [phone] Social History Tobacco Use Types Packs/Day Years [...]
--- OUTSIDE RECORDS SUMMARY | 2024-12-23 11:29 | XMS_ITS | Encounter Summary ---
Author Organization [employer] Address [address] [facility] [address] [place] [address] Care Team Providers Care Heading Matcher And Assembler Name Role Phone Unavailable Primary Care Provider Unavailabl e Reason for Visit * Reason Comments Med Refill Encounter Details Date Type Department Care Team (Late st Contact Info) Description 05/30/2024 Refill [facility] ADULT DENTAL [address] [place], [place] [phone] Irineo Harris DDS [address] [place], [place] [phone] Social History Tobacco Use Types Packs/Day Years [...]
--- OUTSIDE RECORDS SUMMARY | 2024-12-23 11:29 | XMS_ITS | Clinical Summary ---
Author Organization [email or web address] Address [address] [facility] [address] [place] [address] Care Team Providers Care Shipping Inspector Name Role Phone Unavailable Primary Care Provider Unavailabl e Allergies No known active allergies Medications albuterol (2.5 MG/3ML) 0.083% nebulizer solution INHALE 1 VIAL EVERY 4 TO 6 HOURS NEEDED FOR SHORTNESS OF BREATH OR WHEEZING 02/22/20 24 Active Ventolin HFA 108 (90 Base) MCG/ACT inhaler INHALE 2 PUFFS BY MOUTH EVERY 4 TO 6 HOURS NEEDED FOR WHEEZE 02/21/20 24 Active Eliquis 5 MG tablet TAKE 1 TABLET ORALLY 2 TIMES A DAY FOR 30 DAYS 02/20/20 24 Active Breo Ellipta 200-25 MCG/ACT aerosol powder INHALE 1 PUFF BY MOUTH DAILY 02/21/20 24 Active Trelegy Ellipta 200-62.5-25 MCG/ACT aerosol powder TAKE 1 INHALATION INHALED DAILY FOR 90 DAYS 02/21/20 24 Active predniSONE (Deltasone) 10 MG tablet TAKE 4 TABLETS BY MOUTH DAILY FOR 7 DAYS. DECREASE BY 1 TABLET EVERY 7 DAYS DIRECTED 03/03/20 24 Active oxygen (O2) gas Inhale continuously. via nasal canula Active amoxicillin (Amoxil) 500 MG capsule TAKE 1 CAPSULE (500 MG) BY MOUTH EVERY 8 HOURS FOR 7 DAYS 21 capsule 04/07/20 24 Active acetaminophen (Tylenol 8 Hour) 650 MG ER tablet TAKE 1 TABLET BY MOUTH EVERY 8 HOURS NEEDED FOR PAIN FOR 10 DAYS, DO NOT CRUSH, CHEW, OR SPLIT 15 tablet 08/08/19 25 Active chlorhexidine (Peridex) 0.12 % solution SWISH 15 ML FOR 30 SECONDS THEN SPIT. USE TWICE DAILY (MORNING AND EVENING) AFTER BRUSHING TEETH NEEDED 473 mL 12/06/19 25 Active chlorhexidine (Peridex) 0.12 % solution SWISH AND SPIT 15 ML IN THE MOUTH FOR 30 SEC OR THROAT IF NEEDED FOR UP TO 14 DAYS. DO NOT SWALLOW 473 mL 11/12/19 25 025 Discontinued Encounters Date Type Department Care Team Description 12/04/2024 Refill [facility] ADULT DENTAL [address] [place] [address] Lenora Fishman, DDS 11/11/2024 Refill [facility] ADULT DENTAL [address] [place] [address] Abelino López DMD 10/11/2024 Refill [facility] ADULT DENTAL [address] [place] [address] Abelino López DMD from Last 3 Months Social History Tobacco Use Types Packs/Day Years Used Date Smoking Tobacco: Former Cigarettes Tobacco Cessation:Counseling Given: Not Answered Sex and Gender Information Value Date Recorded Sex Assigned at Male 02/06/2022 10:39 AM EDT Legal Sex Male 10:39 AM EDT Gender Identity Male 02/06/2022 10:39 AM EDT Sexual Orientation Straight 02/06/2022 10 :39 AM EDT Last Filed Vital Signs Vital Sign Reading Time Taken Comments Blood Pressure 112/68 03/11/2024 9:22 AM EST Pulse - - Temperature - - Respiratory Rate - - Oxygen Saturation - - Inhaled Oxygen Concentration - - Weight - - Height - - Body Mass Index - - Plan of Treatment Health Maintenance Due Date Last Done Comments CT Colonography 1977 Colonoscopy 1977 Colorectal Cancer Screening 1977 Dental Oral Exam 1977 Dental Prophylaxis 1977 Dental X-Ray: Bitewings 1977 Depression Screening 1977 FIT DNA/Cologuard 1977 FIT 1977 FOBT 1977 HIV Screening 1977 Lipid Panel 1977 SDOH Screening 1977 Sigmoidoscopy 1977 Disability Screening 1977 Alcohol/Substance Use Screening 1989 Family Planning (PISQ) 1992 Hepatitis C Screening 1995 Hepatitis B Vaccines (1 of 3 - 19+ 3-dose series) 1996 Dental X-Ray: Full Mouth 11/19/2024 11/18/2021 COVID-19 Vaccine (3 - 2024-2 6 season) 2024 03/15/2021, 02/10/2021 Influenza Vaccine (#1) 2024 , 06/12/2016, 05/08/2016 Tobacco Screening 03/11/2025 03/11/2024 Zoster Vaccines (1 of 2) 2027 DTaP/Tdap/Td Vaccines (2 - T d or Tdap) 09/20/2027 09/19/2017, 03/09/2013 RSV Patients and Patients Aged 60 years or older (1 - 1-dose 75+ series) 2052 Pneumococcal Vaccine: Pediatrics (0 to 5 Years) and At-Risk Patients (6 to 49) Years Aged Out 06/12/2016 No longer eligible b ased on patient's age to complete this topic HIB Vaccines Aged Out No longer eligi ble based on patient's age to complete this topic HPV Vaccines Aged Out No longer eligi ble based on patient's age to complete this topic Hepatitis A Vaccines Aged Out No long er eligible based on patient's age to complete this topic IPV Vaccines Aged Out No longer eligi ble based on patient's age to complete this topic Meningococcal B Vaccine Aged Out No l onger eligible based on patient's age to complete this topic Meningococcal Vaccine Aged Out No lala nina eligible based on patient's age to complete this topic RSV under 20 months Aged Out No longe r eligible based on patient's age to complete this topic Rotavirus Vaccines Aged Out No longer eligible based on patient's age to complete this topic Procedures Procedure Name Priority Date/Time Associated Diagnosis Comments PANORAMIC RADIOGRAPHIC IMAGE Routine 11/18/2021 12:00 AM EDT from Last 3 Months or Most Recently Relevant to Health Maintenance [facility] AD[facility]
--- OUTSIDE RECORDS SUMMARY | 2024-12-23 11:29 | XMS_ITS | Encounter Summary ---
Author Organization [employer] Address [address] [facility] 7t [place] [address] Care Team Providers Care Electronic Service Technician Name Role Phone Unavailable Primary Care Provider Unavailabl e Reason for Visit * Reason Comments Med Refill Encounter Details Date Type Department Care Team (Late st Contact Info) Description 10/11/2024 Refill [facility] ADULT DENTAL [address] [place], [place] [phone] Abelino López DMD [address] [place] [address] Social History Tobacco Use Types Packs/Day Years [...] Telephone Encounter - Abelino López DMD - 10/13/2024 9:46 AM EDT Approving, but needs appt for additional refills. documented in this encounter Plan of Treatment Not on file documented as of this encounter Visit Diagnoses Not on filedocumented in this encounter
--- OUTSIDE RECORDS SUMMARY | 2024-12-23 11:29 | XMS_ITS | Encounter Summary ---
Author Organization [employer] Address [address] [facility] 7t [place] [address] Care Team Providers Care Equipment Installer Name Role Phone Unavailable Primary Care Provider Unavailabl e Reason for Visit * Reason Comments Med Refill Encounter Details Date Type Department Care Team (Late st Contact Info) Description 12/04/[address] [facility] ADULT DENTAL [address] [place], [place] [phone] Lenora Fishman, DDS [address] [place], [place] [phone] Social History Tobacco Use Types Packs/Day Years [...] Telephone Encounter - Abelino López DMD - 12/05/2024 7:57 AM EDT Approving, but needs appt for additional refills. documented in this encounter Plan of Treatment Not on file documented as of this encounter Visit Diagnoses Not on filedocumented in this encounter
--- OUTSIDE RECORDS SUMMARY | 2024-12-23 11:29 | XMS_ITS | Encounter Summary ---
Author Organization [employer] Address [address] [facility] 7t [place] [address] Care Team Providers Care Residential Sales Representative Name Role Phone Unavailable Primary Care Provider Unavailabl e Reason for Visit * Reason Comments Med Refill Encounter Details Date Type Department Care Team (Late st Contact Info) Description 11/11/2024 Refill [facility] ADULT DENTAL [address] [place], [place] [phone] Abelino López, DMD [address] [place] [address] Social History Tobacco Use Types Packs/Day Years [...] Telephone Encounter - Lenora Fishman DDS - 11/11/2024 3:48 PM EDT Approving, but needs appt for additional refills. documented in this encounter Plan of Treatment Not on file documented as of this encounter Visit Diagnoses Not on filedocumented in this encounter
== END 2024-12-23 09:50 | disposition home or self-care (01) ==
LOC: HO.HOS 09:10
PROVIDERS: Visit Provider Physician Assistant
DX: S72.92XA Unspecified fracture of left femur, initial encounter for closed fracture (principal)
CPT/HCPCS: 99213

== ENCOUNTER → 2024-12-23 09:11 | Outpatient (BNV) | payer OTHER, SELFPAY | PROVIDERS: Visit Provider Radiology Diagnostic Radiology | DX: S72.8X2D Other fracture of left femur, subsequent encounter for closed fracture with routine healing (principal) | CPT/HCPCS: 73502 ==

== ENCOUNTER 2024-12-23 09:54 | Outpatient (REF) | payer OTHER, SELFPAY ==
--- NOTE | ~2024-12-23 | XR_ITS ---
EXAMINATION: XR HIP, LEFT CLINICAL INFORMATION: M25.559 - Pain in unspecified hip COMPARISON: November 10, 2024 TECHNIQUE: AP and cross lateral view of the left hip. FINDINGS: There is a metallic dynamic screw through the left femoral head neck proximal diaphysis, intact. No gross loosening. Old traumatic deformity, greater and probably lesser trochanter, left femur. No acute cortical disruption or gross malalignment. No lytic or blastic lesions. No subcutaneous edema. 4 mm well-corticated calcifications in the soft tissues adjacent to the greater trochanter and lesser trochanter, left femur. XR/XR hip LT min 2V IMPRESSION: Intact dynamic screw, left femur. Healing fracture. Electronically signed by: Mata Shahid MD 12/23/2024 09:29 AM EDT
--- OUTSIDE RECORDS SUMMARY | 2024-12-24 11:47 | XMS_ITS | Encounter Summary ---
Author Organization [employer] Address [address] [facility] 7t [place] [address] Care Team Providers Care Circle Edger Name Role Phone Unavailable Primary Care Provider Unavailabl e Reason for Visit * Reason Comments Med Refill Encounter Details Date Type Department Care Team (Late st Contact Info) Description 08/06/2024 Refill [facility] ADULT DENTAL [address] [place], [place] [phone] Abelino López DMD [address] [place] [address] Social History Tobacco Use Types Packs/Day Years [...]
--- OUTSIDE RECORDS SUMMARY | 2024-12-24 11:47 | XMS_ITS | Encounter Summary ---
Author Organization [employer] Address [address] [facility] 7t [place] [address] Care Team Providers Care Knowledge Engineer Name Role Phone Unavailable Primary Care Provider Unavailabl e Reason for Visit * Reason Comments Med Refill Encounter Details Date Type Department Care Team (Late st Contact Info) Description 08/29/[address] [facility] ADULT DENTAL [address] [place], [place] [phone] Abelino López DMD [address] [place] [address] Social History Tobacco Use Types Packs/Day Years [...]
--- OUTSIDE RECORDS SUMMARY | 2024-12-24 11:47 | XMS_ITS | Encounter Summary ---
Author Organization [employer] Address [address] [facility] 7t [place] [address] Care Team Providers Care Store Shopper Name Role Phone Unavailable Primary Care Provider Unavailabl e Reason for Visit * Reason Comments Med Refill Encounter Details Date Type Department Care Team (Late st Contact Info) Description 05/30/2024 Refill [facility] ADULT DENTAL [address] [place], [place] [phone] Lenora Fishman DDS [address] [place], [place] [phone] Social History Tobacco Use Types Packs/Day Years [...]
--- OUTSIDE RECORDS SUMMARY | 2024-12-24 11:47 | XMS_ITS | Encounter Summary ---
Author Organization [employer] Address [address] [facility] 7t [place] [address] Care Team Providers Care Rehabilitation Assistant Name Role Phone Unavailable Primary Care Provider Unavailabl e Reason for Visit * Reason Comments Med Refill Encounter Details Date Type Department Care Team (Late st Contact Info) Description 07/21/2024 Refill [facility] ADULT DENTAL [address] [place], [place] [phone] Lenora Fishman, DDS [address] [place], [place] [phone] Social History Tobacco Use Types Packs/Day Years [...]
--- OUTSIDE RECORDS SUMMARY | 2024-12-24 11:47 | XMS_ITS | Encounter Summary ---
Author Organization [employer] Address [address] [facility] 7t [place] [address] Care Team Providers Care Beeswax Bleacher Name Role Phone Unavailable Primary Care Provider Unavailabl e Reason for Visit * Reason Comments Med Refill Encounter Details Date Type Department Care Team (Late st Contact Info) Description 10/11/2024 Refill [facility] ADULT DENTAL [address] [place], [place] [phone] Abelino López DMD [address] [place] [address] Social History Tobacco Use Types Packs/Day Years [...]
--- OUTSIDE RECORDS SUMMARY | 2024-12-24 11:47 | XMS_ITS | Encounter Summary ---
Author Organization [employer] Address [address] [facility] 7t [place] [address] Care Team Providers Care Subassembly Assembler Name Role Phone Unavailable Primary Care Provider Unavailabl e Reason for Visit * Reason Comments Med Refill Encounter Details Date Type Department Care Team (Late st Contact Info) Description 05/30/2024 Refill [facility] ADULT DENTAL [address] [place], [place] [phone] Irineo Harris DDS [address] [place], [place] [phone] Social History Tobacco Use Types Packs/Day Years [...]
--- OUTSIDE RECORDS SUMMARY | 2024-12-24 11:47 | XMS_ITS | Encounter Summary ---
Author Organization [employer] Address [address] [facility] 7t [place] [address] Care Team Providers Care Fabrics And Material Cutter Name Role Phone Unavailable Primary Care Provider Unavailabl e Reason for Visit * Reason Comments Med Refill Encounter Details Date Type Department Care Team (Late st Contact Info) Description 06/29/2024 Refill [facility] ADULT DENTAL [address] [place], [place] [phone] Lenora Fishman DDS [address] [place], [place] [phone] Social History Tobacco Use Types Packs/Day Years [...]
--- OUTSIDE RECORDS SUMMARY | 2024-12-24 11:47 | XMS_ITS | Encounter Summary ---
Author Organization [employer] Address [address] [facility] 7t [place] [address] Care Team Providers Care Implementation Technician Name Role Phone Unavailable Primary Care Provider Unavailabl e Reason for Visit * Reason Comments Med Refill Encounter Details Date Type Department Care Team (Late st Contact Info) Description 08/06/[address] [facility] ADULT DENTAL [address] [place], [place] [phone] Lenora Fishman DDS [address] [place], [place] [phone] Social History Tobacco Use Types Packs/Day Years [...]
--- OUTSIDE RECORDS SUMMARY | 2024-12-24 11:47 | XMS_ITS | Encounter Summary ---
Author Organization [employer] Address [address] [facility] 7t [place] [address] Care Team Providers Care Therapy Coordinator Name Role Phone Unavailable Primary Care Provider Unavailabl e Reason for Visit * Reason Comments Med Refill Encounter Details Date Type Department Care Team (Late st Contact Info) Description 09/13/2024 Refill [facility] ADULT DENTAL [address] [place], [place] [phone] Abelino López DMD [address] [place] [address] Social History Tobacco Use Types Packs/Day Years [...]
--- OUTSIDE RECORDS SUMMARY | 2024-12-24 11:47 | XMS_ITS | Clinical Summary ---
Author Organization [employer] Address [address] [facility] 7t [place] [address] Care Team Providers Care Cloud Solutions Architect Name Role Phone Unavailable Primary Care Provider [...] Type Department Care Team Description 12/04/2024 Refill [facility] ADULT DENTAL [address] [place] [address] Lenora Fishman, DDS 11/11/2024 Refill [facility] ADULT DENTAL [address] [place] [address] Abelino López DMD 10/11/2024 Refill [facility] ADULT DENTAL [address] [place] [address] Abelino López DMD from Last 3 Months [...] Most Recently Relevant to Health Maintenance Insurance [facility] ST[facility] ADULT
--- OUTSIDE RECORDS SUMMARY | 2024-12-24 11:47 | XMS_ITS | Encounter Summary ---
Author Organization [employer] Address [address] [facility] [address]t [place] [address] Care Team Providers Care Talent Acquisition Coordinator Name Role Phone Unavailable Primary Care Provider Unavailabl e Reason for Visit * Reason Comments Med Refill Encounter Details Date Type Department Care Team (Late st Contact Info) Description 12/04/2024 Refill [facility] ADULT DENTAL [address] [place], [place] [phone] Lenora Fishman, DDS [address] [place], [place] [phone] Social History Tobacco Use Types Packs/Day Years [...]
--- OUTSIDE RECORDS SUMMARY | 2024-12-24 11:47 | XMS_ITS | Encounter Summary ---
Author Organization [employer] Address [address] [facility] 7t [place] [address] Care Team Providers Care Squad Sergeant Name Role Phone Unavailable Primary Care Provider Unavailabl e Reason for Visit * Reason Comments Med Refill Encounter Details Date Type Department Care Team (Late st Contact Info) Description 04/05/2024 Refill [facility] ADULT DENTAL [address] [place], [place] [phone] Lenora Fishman DDS [address] [place], [place] [phone] Social History Tobacco Use Types Packs/Day Years [...]
--- OUTSIDE RECORDS SUMMARY | 2024-12-24 11:47 | XMS_ITS | Encounter Summary ---
Author Organization [employer] Address [address] [facility] 7t [place] [address] Care Team Providers Care Trade Marker Name Role Phone Unavailable Primary Care Provider Unavailabl e Reason for Visit * Reason Comments Med Refill Encounter Details Date Type Department Care Team (Late st Contact Info) Description 11/11/2024 Refill C ADULT DENTAL [address] [place], [place] [phone] Abelino López, DMD [address] [place] [address] Social History Tobacco Use Types Packs/Day Years [...]
== END 2024-12-23 09:55 | disposition home or self-care (01) ==
LOC: HO.HOSX 09:54
PROVIDERS: Visit Provider Physician Assistant
DX: S72.92XD Unspecified fracture of left femur, subsequent encounter for closed fracture with routine healing (principal); X58.XXXD Exposure to other specified factors, subsequent encounter
CPT/HCPCS: 73502; 99212

== ENCOUNTER 2025-01-07 09:16 | Outpatient (RCR) | payer OTHER, SELFPAY ==
--- NOTE | 2025-01-07 10:21 | MHC.PT.EP ---
[facility] [place] [facility] [place] [facility] [place] [facility] [address] Bobbi Anderson [address] [phone] F: [phone] F: [phone] F: [phone] F: [phone] Physical Therapy Plan of Care Date of Evaluation: 01/07/25 Date of Surgery: 11/02/24 Diagnosis: Femur fracture, L s/p L hip ORIF Assessment: Shiraz is a 49 year old male who with complex breathing issues is referred to PT for femur fracture, s/p L ORIF . He is currently 9.5 weeks post op. He fractured his L femur at a wedding and [place] the surgery was done there as well. He has had no PT so far. On PT examination he presented with TTP over L hip suture site, 5/10 pain early in the morning, standing and walking for more than 15 minutes, getting in and out of care, decreased L hip ROM, decreased LLE strength, altered posture, balance and gait. He lives with his girl friend and is needing assistance with ADLS due to weakness in L LE. His girl friend would normally help him the days his breathing is compromised. He would benefit from skilled PT to address the aforementioned impairments and improve tolerance to functional activities. Frequency and Duration: The patient will be seen 2/week for 5 weeks Short Term Goals: 1. Pt will have 50% decrease in pain which will enable him to get up in the morning without pain in 2 weeks 2. Pt will be able to ambulate without AD in 3 weeks Blood Donor Recruiter Supervisor Goals: 1. Pt will be demonstrate an increase in muscle strength by 1 grade which will enable him to tolerate standing, walking and getting in and out of care without pain in 5 weeks 2. Pt will have no physical limitations to perform his ADLs in 6 weeks 3. Pt will be independent with all HEP for symptom management and maintenance following d/c in 6 weeks Treatment Plan: Modalities to reduce pain, spasms and effusion. Manual therapy to restore motion and function. Therapeutic exercise to improve strength and flexibility. Neuromuscular re-education for posture and balance. Therapeutic activities to return to functional activities of daily living. Electronically signed by: Freida Funez PT DPT Please sign and return to therapist. Thank you for your referral.
--- NOTE | 2025-01-28 13:28 | MHC.PT.DC ---
[facility] [place] [facility] [place] [facility] [place] [facility] [address] Bobbi Anderson [address] [phone] F: [phone] F: [phone] F: [phone] F: [phone] Physical Therapy Discharge Report Diagnosis: Femur fracture, L s/p L hip ORIF Date of Surgery: 11/02/24 Date of Evaluation: 01/07/25 Date of Discharge: 01/28/25 Treatments to Date: 1 Cancellations to Date: 1 No Shows to Date: 3 Discharge Status: Visit Non-compliance Discharge Summary: Shiraz attended his eval, canceled 1 and no showed 3 appointments after. He is therefore being d/c from PT for non compliance. Electronically signed by: Freida Funez PT DPT Please sign and return to therapist. Thank you for your referral.
== END 2025-01-28 13:28 | disposition home or self-care (01) ==
LOC: HO.PT 09:16
PROVIDERS: Visit Provider Physician Assistant
DX: S72.92XD Unspecified fracture of left femur, subsequent encounter for closed fracture with routine healing (principal)
CPT/HCPCS: 97110; 97161

== ENCOUNTER 2025-02-10 16:53 | Inpatient (IN) | payer OTHER, SELFPAY ==
[2025-02-10] VITALS (9 sets, daily range): BP systolic 98–160; BP diastolic 57–90; PULSE 92–122; RESP 15–27; TEMP 36.7–36.9; O2SAT 89–99; BMI 23.4
--- NOTE | ~2025-02-10 | XR_ITS ---
CLINICAL HISTORY: sob 1 view chest x-ray Comparison: CR - XR CHEST 1V - 09/20/24 01:29 EDT Findings: No consolidation or effusion. Normal size heart. No acute fracture. IMPRESSION: 1. No acute findings. This document has been electronically signed by: Gregg Gomez MD on 02/10/2025 17:48:15
--- NOTE | 2025-02-10 17:00 | ECG_ITS ---
Test Reason : sob Blood Pressure : */* mmHG Vent. Rate : 89 BPM Atrial Rate : 89 BPM P-R Int : 150 ms QRS Dur : 80 ms QT Int : 366 ms P-R-T Axes : 84 59 67 degrees QTcB Int : 445 ms Normal sinus rhythm Normal ECG When compared with ECG of 20-Sep-2024 01:34, Nonspecific T wave abnormality no longer evident in Lateral leads Referred By: Smooth Lea Electronically Signed By: Jameson Catherine
--- NOTE | 2025-02-10 17:02 | ED.SOB ---
HPI - SOB/Dyspnea General Chief Complaint: Dyspnea Stated Complaint: sob, diff breath, 97% on duoneb IV access hx resp Time Seen by Provider: 02/10/25 16:55 Source: patient, EMS and old records reviewed Mode of arrival: EMS Limitations: no limitations History of Present Illness ED Provider: DR. Lea HPI Narrative: 49-year-old male with history of polysubstance use, history of PE, COPD/ asthma, active cigarette smoking presented for 2 days of difficulty breathing, patient normally do not use supplemental oxygen at home however he has an oxygen tank at home that he use it sometimes if needed, patient used his oxygen tank today on 5 L noted to be 92% by EMS while he was on oxygen, patient was severely wheezing and had chest retraction required DuoNeb / albuterol/Solu-Medrol en route on arrival patient is still wheezing and complaining of difficulty breathing. Reports productive cough with yellow sputum, no fever, no chills, no recent travel, no sick contacts. Related Data Home Medications ?Medication ?Instructions ?Recorded ?Confirmed methadone 10 mg/mL oral 58 mg PO DAILY 04/18/23 09/20/24 concentrate (Methadose) fluticasone fur. 200 mcg-umeclid 1 ea inhalation DAILY 09/20/24 02/10/25 62.5 mcg-vilant 25 mcg inhalat.powder (Trelegy Ellipta) fluticasone furoate 200 1 ea inhalation DAILY 09/20/24 02/10/25 mcg-vilanterol 25 mcg/dose inhalation powder (Breo Ellipta) Previous Rx's ?Medication ?Instructions ?Recorded nebulizers #1 ea 11/26/20 apixaban 5 mg tablet (Eliquis) 5 mg PO BID 90 days #180 tabs 04/01/24 albuterol sulfate 90 mcg/actuation 2 puff inhalation Q4-6H PRN 04/10/24 aerosol inhaler shortness of breath or wheezing #3 ea montelukast 10 mg tablet 10 mg PO BEDTIME #90 tabs 09/22/24 albuterol sulfate 2.5 mg/3 mL 2.5 mg (3 mL) inhalation Q4-6H PRN 12/05/24 (0.083 %) solution for nebulization for wheezing #150 mL Allergies Allergy/AdvReac Type Severity Reaction Status Date / Time walnut Allergy Severe SWELLING Verified 02/10/25 17:08 buprenorphine (From Suboxone) Allergy swelling Verified 02/10/25 17:08 in his hands and rash naloxone (From Suboxone) Allergy swelling Verified 02/10/25 17:08 in his hands and rash walnuts Allergy Severe anaphylaxis Uncoded 02/10/25 17:08 NSAIDS/ASA Allergy Unknown unknown Uncoded 02/10/25 17:08 Review of Systems Review of Systems: All other systems are reviewed and are negative Constitutional: Reports as per HPI and Reports no additional constitutional complaints Eyes: Reports as per HPI and Reports no additional eye complaints Reports system reviewed and no additional complaints, except as documented Cardiovascular: Reports as per HPI and Reports no additional cardiovascular complaints Respiratory: Reports as per HPI and Reports no additional respiratory complaints Gastrointestinal: Reports as per HPI and Reports no additional gastrointestinal complaints Genitourinary: Reports no additional female genitourinary complaints Musculoskeletal: Reports no additional musculoskeletal complaints Skin/Breast: Reports system reviewed and no additional complaints, except as docu Psychiatric: Reports no additional psychiatric complaints Endocrine: Reports no additional endocrine complaints Hematologic/Lymphatic: Reports no additional hematologic/lymphatic complaints Allergic/Immunologic: Reports no additional allergic/immunologic complaints Reports system reviewed and no additional complaints, except as documented and Reports Abnormal speech present [facility] Past Medical History Medical History Chronic lung disease Acute on chronic respiratory failure with hypoxia and hypercapnia Inhales drugs Heroin use Allergic asthma with status asthmaticus Moderate persistent asthma with exacerbation Opiate abuse, episodic Left against medical advice Lung problems from crack cocaine Chronic lung disease Asthma Pulmonary emboli Family History Family History Other Family history non-contributory Social History Social History Household Members: Significant Other Housing: House Do you presently have visiting nurse or other home services: No Alcohol intake: never Patient Tobacco Use Status: Former Tobacco user Tobacco use type: Cigarette Cigarettes Per Day: 1 Smoked in Last 30 Days: No e-Cigarette/Vaping Use: Never Used Second Hand Smoke Exposure: No Use of substances other than those prescribed or required for medical reasons: No Substance Use Type: Heroin Advance Directives: No Advance Directives Information Provided: Yes Advance Directives Date on File: 06/22/24 Do you have a plan to hurt others: No Plan Nutrition Risks: No Nutritional Risk service: No Current occupational status: unemployed Cognitive needs: No Hearing needs: No Vision needs: No Physical Exam Vital Signs: Vital Signs: Last Vital Signs Temp 98.0 F 02/10/25 17:07 Pulse 99 02/10/25 21:03 Resp 15 02/10/25 21:03 BP 103/62 02/10/25 21:03 Pulse Ox 99 02/10/25 21:03 O2 Del Method Oxymask 02/10/25 21:03 O2 Flow Rate 4 02/10/25 21:03 Oxygen Flow Rate 2 02/10/25 17:07 BMI result Body Mass Index 23.4 Vital signs have been reviewed and appear to be correct. Blood pressure elevated. Heart rate normal. Respiratory rate normal. Temperature normal. Oxygen saturation normal. Appearance: Alert. Oriented X3. acute distress secondary to wheezing. Head: Normal external exam. Normocephalic. Atraumatic. No Garcia signs noted. No raccoon eyes noted Eyes: PERRLA. EOMI. Conjunctiva and sclera normal. Eyelids normal. ENT: TM's Normal. Pharynx normal. Uvula midline. Moist mucous membranes. No trismus noted. No drooling noted. No muffled voice noted. Neck: Normal inspection. Neck supple. FROM. No adenopathy. Thyroid Normal. No meningeal signs. No neck mass noted. CVS: Normal heart rate and rhythm. Heart sound normal. No murmurs noted. Pulses normal throughout. Respiratory: Severe respiratory distress. Painless inspiration. Breath sounds normal. Bilateral mild expiratory wheezing with prolonged expiration.No accessory muscle usage noted or decreased air movement noted. Abdomen: Soft and nontender. Bowel sounds normal in all 4 quadrants. No distention noted. No organomegaly noted. No visible injury noted. Back: No CVA tenderness. Full range of motion noted. Skin: Skin warm and dry. Normal skin color. Normal skin turgor. No rashes/lesions/lacerations noted. Extremities: No lower extremity edema. Extremities exhibit normal range of motion. Extremities nontender. Neuro: Oriented X 3. Cranial nerve exam: II-XII are grossly intact No motor deficit. No sensory deficit. Reflexes normal. Course Reevaluation(s) Reevaluation #1: COPD exacerbation in the an active smoker, normally do not use supplemental oxygen at home today in the ED he was 87% on 3 L of supplemental oxygen received multiple doses of albuterol which believed to cause lactic acidosis for this patient otherwise patient does not meet criteria for sepsis or severe sepsis. Leukocytosis secondary to steroid use. No indication for antibiotic at this point. Will admit for continuous bronchodilator, Solu-Medrol. Time: 20:04 Medications Administered Generic Name Dose Route Start Last Admin Trade Name Freq PRN Reason Stop Dose Admin Apixaban 5 mg 02/10/25 21:00 02/10/25 21:03 Apixaban 5 Mg Tablet PO 5 mg BID EMMA Administration Azithromycin 500 mg 02/10/25 21:00 02/10/25 21:02 Azithromycin 500 Mg Tablet PO 500 mg Q24H EMMA Administration Enoxaparin Sodium 40 mg 02/10/25 21:00 02/10/25 21:03 Enoxaparin Sodium 40 Mg/0.4 Ml Syringe SUBCUT 40 mg Q24H EMMA Administration Sodium Chloride 3 ml 02/11/25 00:00 02/11/25 00:14 0.9 % Sodium Chloride Flush 3 Ml Syringe IVFLUSH Not Given QSHIFT EMMA Discontinued Medications Generic Name Dose Route Start Last Admin Trade Name Freq PRN Reason Stop Dose Admin Albuterol Sulfate 5 mg/ 0 mg 02/10/25 17:08 02/10/25 17:13 Albuterol/Ipratropium 3 ml INHALE 02/10/25 17:09 7.5 each ONCE ONE Administration Albuterol Sulfate 2.5 mg/ 0 mg 02/10/25 18:24 02/10/25 18:28 Albuterol/Ipratropium 3 ml INHALE 02/10/25 18:25 1 dose ONCE ONE Administration Magnesium Sulfate 2 gm in 50 mls @ 150 mls/hr 02/10/25 17:00 02/10/25 18:09 Magnesium Sulfate/H2o IV 02/10/25 17:19 Infused ONCE ONE Infusion Sodium Chloride 1,000 mls @ 999 mls/hr 02/10/25 17:53 02/10/25 20:13 Ns IV 02/10/25 18:53 Infused .Q1H1M ONE Infusion Medical Decision Making Differential Diagnosis Differential Diagnoses: The differential diagnosis associated with the presentation includes (COPD exacerbation, asthma exacerbation, pneumonia, pneumothorax, pleural effusion, pulmonary embolism, severe anemia, electrolyte derangement, CHF.) Admission/Observation Consideration of admission/observation: Escalation of care including admission/observation considered Consult Healthcare Provider Management of the patient was discussed with: Hospitalist (Dr. Dobbins) Lab Data MDM Lab Attestation statement: I reviewed the patient's lab results. 02/10/25 18:29 02/10/25 18:29 Labs: Lab Results 02/10/25 02/10/25 Range/Units 18:29 18:30 WBC 14.3 H (4.8-10.8) X10*3/uL RBC 4.20 L (4.60-5.80) X10*6/uL Hgb 13.2 L (14.0-18.0) g/dl Hct 40.7 L (42.0-52.0) % MCV 96.9 (80.0-98.0) fL MCH 31.4 (27.0-33.0) pg MCHC 32.4 (31.0-36.0) g/dl RDW 13.1 (11.0-16.0) % Plt Count 234 (160-400) X10*3/uL MPV 9.5 (9.4-12.4) fL Immature Gran % (Auto) 0.4 (0.0-0.4) % Neut % (Auto) 82.1 H (45-73) % Lymph % (Auto) 9.8 L (20-40) % Tate % (Auto) 2.6 (2-11) % Eos % (Auto) 4.6 H (0-4) % Baso % (Auto) 0.5 (0-2) % Lymph # (Auto) 1.4 (1.2-4.9) X10*3/uL Tate # (Auto) 0.4 (0.1-1.2) X10*3/uL Eos # (Auto) 0.7 H (0.0-0.4) X10*3/uL Baso # (Auto) 0.1 (0.0-0.2) X10*3/uL Abs Immat Gran (auto) 0.06 H (0.00-0.03) X10*3/uL Absolute Neuts (auto) 11.7 H (2.0-8.3) x10*3/uL Absolute Nucleated RBC 0.000 (0.0-0.012) X10*3/uL Nucleated RBC % (auto) 0.0 (0.0-0.2) /100WBC D-Dimer High Sensitivty 254 NG/ML Sodium 142 (135-145) mmol/L Potassium 4.4 (3.3-5.1) mmol/L Chloride 105 (96-108) mmol/L Carbon Dioxide 30 H (22-29) mmol/L Anion Gap 11 L (12-20) BUN 12 (9-16) mg/dL Creatinine 0.82 (0.5-1.4) mg/dL Estim Creat Clear Calc 118.6 Estimated GFR > 60 Random Glucose 123 H (60-115) mg/dL Lactic Acid 2.5 H* (0.5-2.0) mmol/L Calcium 9.0 (8.4-10.2) mg/dL Total Bilirubin 0.3 (0.0-1.0) mg/dL Direct Bilirubin 0.1 (0.0-0.5) mg/dL AST 20 (5-37) U/L ALT 19 (0-40) U/L Alkaline Phosphatase 75 (39-117) U/L Troponin I High Sens < 2.7 (<3.5-35.0) ng/L Total Protein 6.6 (6.5-8.0) g/dL Albumin 4.1 (3.5-5.0) g/dL Lipase 7 L (8-78) U/L Influenza Type A (PCR) NEGATIVE (Negative) Influenza Type B (PCR) NEGATIVE (Negative) RSV RNA Qual (PCR) NEGATIVE (Negative) SARS-CoV-2 RNA (RT-PCR) NEGATIVE (Negative) Independent Interpretation I performed an independent interpretation of an: Plain X-Ray (Chest: No acute pathology.) Radiology Impression Discussion of test interpretation with radiology: I have reviewed the radiologist's reading. Critical Care Time Critical Care Time Critical Care Time: Yes Total Critical Care Time: 60 Attestation: The patient was critically ill with a high probability of imminent or life-threatening deterioration. I spent greater than 30 minutes of discontinuous time evaluating the patient, delivering critical care at the bedside, discussing evaluating data with consultants. Critical care time does not include time spent performing separately billable procedures or teaching. Time spent performing critical care was 60 minutes. Discharge Plan Discharge Clinical Impression: Acute exacerbation of chronic obstructive pulmonary disease Patient Disposition: Admitted As Inpatient
[2025-02-10] MEDS: Albuterol Sulfate 5 MG, Albuterol/Iprat 2.5/0.5MG 3 ML 3 ML INHALE (17:13)
[2025-02-10] MEDS: Magnesium Sulfate/H2O 2 GM/50 ML PIGGYBACK IV (17:15)
--- NOTE | 2025-02-10 18:09 | PC.NURSE ---
Pt desat to 82% on NC- placed on 3L oxymask, O2 sat 88-90%. MD Lea made aware.
[2025-02-10] MEDS: Albuterol Sulfate 2.5 MG, Albuterol/Iprat 2.5/0.5MG 3 ML 3 ML INHALE (18:28)
[2025-02-10 18:36] LABS: MANUAL DIFF FLAG NO
[2025-02-10 18:39] LABS: Hematocrit 40.7 % (42.0-52.0); Hemoglobin 13.2 g/dl (14.0-18.0); Imm Gran Abs Auto 0.06 X10*3/uL (0.00-0.03); Imm Gran Pct Auto 0.4 % (0.0-0.4); Lymphocytes Absolute Auto 1.4 X10*3/uL (1.2-4.9); Mean Corpuscular HGB Conc 32.4 g/dl (31.0-36.0); Mean Corpuscular Hemoglobin 31.4 pg (27.0-33.0); Mean Corpuscular Volume 96.9 fL (80.0-98.0); NRBC Abs Auto 0.000 X10*3/uL (0.0-0.012); NRBC Pct Auto 0.0 /100WBC (0.0-0.2); Platelet Count 234 X10*3/uL (160-400); Red Blood Count 4.20 X10*6/uL (4.60-5.80); White Blood Count 14.3 X10*3/uL (4.8-10.8)
--- OUTSIDE RECORDS SUMMARY | 2025-02-10 18:44 | XMS_ITS | Encounter Summary ---
Author Organization [employer] Address [address] [facility] [address]t [place] [address] Care Team Providers Care Environmental Aide Name Role Phone Unavailable Primary Care Provider Unavailabl e Reason for Visit * Reason Comments Med Refill Encounter Details Date Type Department Care Team (Late st Contact Info) Description 09/13/2024 Refill [facility] ADULT DENTAL [address] [place], [place] [phone] Abelino López DMD [address] [place] [address] Social History Tobacco Use Types Packs/Day Years [...]
--- OUTSIDE RECORDS SUMMARY | 2025-02-10 18:44 | XMS_ITS | Encounter Summary ---
Author Organization [employer] Address [address] [facility] 7t [place] [address] Care Team Providers Care Commercial Litigation Attorney Name Role Phone Unavailable Primary Care Provider Unavailabl e Reason for Visit * Reason Comments Med Refill Encounter Details Date Type Department Care Team (Late st Contact Info) Description 06/29/2024 Refill [facility] ADULT DENTAL [address] [place], [place] [phone] Lenora Fishman DDS [address] [place], [place] [phone] Social History Tobacco Use Types Packs/Day Years [...]
--- OUTSIDE RECORDS SUMMARY | 2025-02-10 18:44 | XMS_ITS | Encounter Summary ---
Author Organization [employer] Address [address] [facility] 7t [place] [address] Care Team Providers Care Cabinetmaker Helper Name Role Phone Unavailable Primary Care Provider Unavailabl e Reason for Visit * Reason Comments Med Refill Encounter Details Date Type Department Care Team (Late st Contact Info) Description 08/29/2024 Refill [facility] ADULT DENTAL [address] [place], [place] [phone] Abelino López DMD [address] [place] [address] Social History Tobacco Use Types Packs/Day Years [...]
--- OUTSIDE RECORDS SUMMARY | 2025-02-10 18:44 | XMS_ITS | Clinical Summary ---
Author Organization [employer] Address [address] [facility] [address]t [place] [address] Care Team Providers Care Ice Rink Attendant Name Role Phone Unavailable Primary Care Provider Unavailabl e Allergies No known active allergies Medications albuterol (2.5 MG/3ML) 0.083% nebulizer solution INHALE 1 VIAL EVERY 4 TO 6 HOURS NEEDED FOR SHORTNESS OF BREATH OR WHEEZING 4 Active Ventolin HFA 108 (90 Base) MCG/ACT inhaler INHALE 2 PUFFS BY MOUTH EVERY 4 TO 6 HOURS NEEDED FOR WHEEZE 4 Active Eliquis 5 MG tablet TAKE 1 TABLET ORALLY 2 TIMES A DAY FOR 30 DAYS 4 Active Breo Ellipta 200-25 MCG/ACT aerosol powder INHALE 1 PUFF BY MOUTH DAILY 4 Active Trelegy Ellipta 200-62.5-25 MCG/ACT aerosol powder TAKE 1 INHALATION INHALED DAILY FOR 90 DAYS 4 Active predniSONE (Deltasone) 10 MG tablet TAKE 4 TABLETS BY MOUTH DAILY FOR 7 DAYS. DECREASE BY 1 TABLET EVERY 7 DAYS DIRECTED 4 Active oxygen (O2) gas Inhale continuously. via nasal canula Active amoxicillin (Amoxil) 500 MG capsule TAKE 1 CAPSULE (500 MG) BY MOUTH EVERY 8 HOURS FOR 7 DAYS 21 capsule 4 Active acetaminophen (Tylenol 8 Hour) 650 MG ER tablet TAKE 1 TABLET BY MOUTH EVERY 8 HOURS NEEDED FOR PAIN FOR 10 DAYS, DO NOT CRUSH, CHEW, OR SPLIT 15 tablet 5 Active chlorhexidine (Peridex) 0.12 % solution SWISH 15 MLS IN MOUTH FOR 30 SECONDS THEN SPIT. USE TWICE DAILY (MORNING AND EVENING) AFTER BRUSHING TEETH NEEDED 473 mL 5 Active Encounters Date Type Department Care Team Description 12/26/2024 Refill [facility] ADULT DENTAL [address] [place] [address] Abelino López, ALEXEY 12/04/2024 Refill [facility] ADULT D[facility] [address] [place] [address] Lenora Fishman, DDS 11/11/2024 Refill [facility] ADULT D[facility] [address] [place] [address] Abelino López DMD from Last 3 Months [...] Most Recently Relevant to Health Maintenance Insurance [place]
--- OUTSIDE RECORDS SUMMARY | 2025-02-10 18:44 | XMS_ITS | Encounter Summary ---
Author Organization [employer] Address [address] [facility] 7t [place] [address] Care Team Providers Care Tongue And Quarter Stitcher Name Role Phone Unavailable Primary Care Provider Unavailabl e Reason for Visit * Reason Comments Med Refill Encounter Details Date Type Department Care Team (Late st Contact Info) Description 11/11/2024 Refill [facility] ADULT DENTAL [address] [place], [place] [phone] Abelino López, DMD [address] [place] [address] Social History Tobacco Use Types Packs/Day Years [...]
--- OUTSIDE RECORDS SUMMARY | 2025-02-10 18:44 | XMS_ITS | Encounter Summary ---
Author Organization [employer] Address [address] [facility] [address]t [place] [address] Care Team Providers Care Oral And Maxillofacial Pathologist Name Role Phone Unavailable Primary Care Provider Unavailabl e Reason for Visit * Reason Comments Med Refill Encounter Details Date Type Department Care Team (Late st Contact Info) Description 08/06/2024 Refill [facility] ADULT DENTAL [address] [place], [place] [phone] Abelino López DMD [address] [place] [address] Social History Tobacco Use Types Packs/Day Years [...]
--- OUTSIDE RECORDS SUMMARY | 2025-02-10 18:44 | XMS_ITS | Encounter Summary ---
Author Organization [employer] Address [address] [facility] 7t [place] [address] Care Team Providers Care Composing Machine Operator/Tender Name Role Phone Unavailable Primary Care Provider Unavailabl e Reason for Visit * Reason Comments Med Refill Encounter Details Date Type Department Care Team (Late st Contact Info) Description 04/05/2024 Refill [facility] ADULT DENTAL [address] [place], [place] [phone] Lenora Fishman DDS [address] [place], [place] [phone] Social History Tobacco Use Types Packs/Day Years [...]
--- OUTSIDE RECORDS SUMMARY | 2025-02-10 18:44 | XMS_ITS | Encounter Summary ---
Author Organization [employer] Address [address] [facility] [address]t [place] [address] Care Team Providers Care Group Rooms Coordinator Name Role Phone Unavailable Primary Care Provider Unavailabl e Reason for Visit * Reason Comments Med Refill Encounter Details Date Type Department Care Team (Late st Contact Info) Description 10/11/2024 Refill [facility] ADULT DENTAL [address] [place], [place] [phone] Abelino López DMD [address] [place] [address] Social History Tobacco Use Types Packs/Day Years [...]
--- OUTSIDE RECORDS SUMMARY | 2025-02-10 18:44 | XMS_ITS | Encounter Summary ---
Author Organization [employer] Address [address] [facility] [address]t [place] [address] Care Team Providers Care Patrol Conductor Name Role Phone Unavailable Primary Care Provider Unavailabl e Reason for Visit * Reason Comments Med Refill Encounter Details Date Type Department Care Team (Late st Contact Info) Description 08/06/2024 Refill [facility] ADULT DENTAL [address] [place], [place] [phone] Lenora Fishman DDS [address] [place], [place] [phone] Social History Tobacco Use Types Packs/Day Years [...]
--- OUTSIDE RECORDS SUMMARY | 2025-02-10 18:44 | XMS_ITS | Encounter Summary ---
Author Organization [employer] Address [address] [facility] [address] [place] [address] Care Team Providers Care Cardiac Rehabilitation Program Director Name Role Phone Unavailable Primary Care Provider Unavailabl e Reason for Visit * Reason Comments Med Refill Encounter Details Date Type Department Care Team (Late st Contact Info) Description 12/26/2024 Refill [facility] ADULT DENTAL [address] [place] [address] Abelino López DMD [address] [place] [address] Social History Tobacco Use Types Packs/Day Years [...] Telephone Encounter - Abelino López DMD - 12/29/2024 7:49 AM EDT Approving, but needs appt for additional refills. documented in this encounter Plan of Treatment Not on file documented as of this encounter Visit Diagnoses Not on filedocumented in this encounter
--- OUTSIDE RECORDS SUMMARY | 2025-02-10 18:44 | XMS_ITS | Encounter Summary ---
Author Organization [employer] Address [address] [facility] [address] [place] [address] Care Team Providers Care Geospatial Technologist Name Role Phone Unavailable Primary Care Provider Unavailabl e Reason for Visit * Reason Comments Med Refill Encounter Details Date Type Department Care Team (Late st Contact Info) Description 05/30/2024 Refill [facility] ADULT DENTAL [address] [place], [place] [phone] Irineo Harris DDS [address] [place], [place] [phone] Social History Tobacco Use Types Packs/Day Years [...]
--- OUTSIDE RECORDS SUMMARY | 2025-02-10 18:44 | XMS_ITS | Encounter Summary ---
Author Organization [employer] Address [address] [facility] [address]t [place] [address] Care Team Providers Care Leasing Representative Name Role Phone Unavailable Primary Care Provider Unavailabl e Reason for Visit * Reason Comments Med Refill Encounter Details Date Type Department Care Team (Late st Contact Info) Description 12/04/2024 Refill [facility] ADULT DENTAL [address] [place], [place] [phone] Lenora Fishman, DDS [address] [place], [place] [phone] Social History Tobacco Use Types Packs/Day Years [...]
--- OUTSIDE RECORDS SUMMARY | 2025-02-10 18:44 | XMS_ITS | Encounter Summary ---
Author Organization [employer] Address [address] [facility] [address]t [place] [address] Care Team Providers Care International Coordinator Name Role Phone Unavailable Primary Care Provider Unavailabl e Reason for Visit * Reason Comments Med Refill Encounter Details Date Type Department Care Team (Late st Contact Info) Description 05/30/2024 Refill [facility] ADULT DENTAL [address] [place], [place] [phone] Lenora Fishman DDS [address] [place], [place] [phone] Social History Tobacco Use Types Packs/Day Years [...]
--- OUTSIDE RECORDS SUMMARY | 2025-02-10 18:45 | XMS_ITS | Encounter Summary ---
Author Organization [employer] Address [address] [facility] [address] [place] [address] Care Team Providers Care Slitter Processed Film Name Role Phone Unavailable Primary Care Provider Unavailabl e Reason for Visit * Reason Comments Med Refill Encounter Details Date Type Department Care Team (Late st Contact Info) Description 07/21/2024 Refill [facility] ADULT DENTAL [address] [place], [place] [phone] Lenora Fishman, DDS [address] [place], [place] [phone] Social History Tobacco Use Types Packs/Day Years [...]
[2025-02-10 18:56] LABS: D Dimer High Sensitivity 254 NG/ML
[2025-02-10 19:01] LABS: Alanine Aminotransferase 19 U/L (0-40); Albumin Level 4.1 g/dL (3.5-5.0); Alkaline Phosphatase 75 U/L (39-117); Anion Gap 11 (12-20); Aspartate Amino Transferase 20 U/L (5-37); Blood Urea Nitrogen 12 mg/dL (9-16); Calcium 9.0 mg/dL (8.4-10.2); Carbon Dioxide 30 mmol/L (22-29); Chloride 105 mmol/L (96-108); Creatinine Clr Calc Pharmacy 118.6; Estimated Glomerular Filt Rate > 60; Lipase 7 U/L (8-78); Potassium 4.4 mmol/L (3.3-5.1); Sodium 142 mmol/L (135-145); Total Protein 6.6 g/dL (6.5-8.0)
[2025-02-10 19:09] LABS: Troponin-I High Sensitivity < 2.7 ng/L (<3.5-35.0)
[2025-02-10 19:33] LABS: Resp Syncy Virus RNA Qual PCR NEGATIVE (Negative); SARS COV2 PCR INHOUSE NEGATIVE (Negative)
--- NOTE | 2025-02-10 20:10 | PM.IMHP ---
History of Present Illness Date of Service: 02/10/25 Chief Complaint: sob 49-year-old male with a past medical history of asthma/COPD, tobacco dependence, pulmonary embolism on Eliquis, polysubstance use disorder; presented to the hospital today with a chief complaint of shortness of breath. Patient mentioned that for the past 2 days he has been having shortness of breath which has been gradually worsening. Denies using home oxygen at baseline but he has home oxygen available at home to use it when needed. He put home oxygen at 5 L at home still feeling short of breath hence presented to the ER for further evaluation. Denies any chest pain or palpitations. Reports having cough with yellow sputum production. Denies any sick contacts. Review of all other systems is negative except mentioned above ER course: Per ER team, patient on presentation noted to be short of breath, wheezing bilaterally, appears to be in mild respiratory distress; given nebulizations and steroids with improvement in respiratory status. [facility] Medical History Chronic lung disease Acute on chronic respiratory failure with hypoxia and hypercapnia Inhales drugs Heroin use Allergic asthma with status asthmaticus Moderate persistent asthma with exacerbation Opiate abuse, episodic Left against medical advice Lung problems from crack cocaine Chronic lung disease Asthma Pulmonary emboli Family History Other Family history non-contributory Social History Household Members: Significant Other Housing: House Do you presently have visiting nurse or other home services: No Alcohol intake: never Patient Tobacco Use Status: Former Tobacco user Tobacco use type: Cigarette Cigarettes Per Day: 1 e-Cigarette/Vaping Use: Never Used Second Hand Smoke Exposure: No Substance Use Type: Heroin Advance Directives: No Advance Directives Information Provided: Yes Advance Directives Date on File: 06/22/24 Do you have a plan to hurt others: No Plan service: No Current occupational status: unemployed Cognitive needs: No Hearing needs: No Vision needs: No Meds Allergies Allergy/AdvReac Type Severity Reaction Status Date / Time walnut Allergy Severe SWELLING Verified 02/10/25 17:08 buprenorphine (From Suboxone) Allergy swelling Verified 02/10/25 17:08 in his hands and rash naloxone (From Suboxone) Allergy swelling Verified 02/10/25 17:08 in his hands and rash walnuts Allergy Severe anaphylaxis Uncoded 02/10/25 17:08 NSAIDS/ASA Allergy Unknown unknown Uncoded 02/10/25 17:08 Home Medications ?Medication ?Instructions ?Recorded ?Confirmed ?Last Taken ?Type methadone 10 mg/mL oral 58 mg PO DAILY 04/18/23 09/20/24 09/18/24 History concentrate (Methadose) fluticasone fur. 200 mcg-umeclid 1 ea inhalation DAILY 09/20/24 09/20/24 09/19/24 History 62.5 mcg-vilant 25 mcg inhalat.powder (Trelegy Ellipta) fluticasone furoate 200 1 ea inhalation DAILY 09/20/24 Unknown History mcg-vilanterol 25 mcg/dose inhalation powder (Breo Ellipta) Physical Exam Vital Signs and Narrative: Vital Signs: Last Vital Signs Temp 98.0 F 02/10/25 17:07 Pulse 94 02/10/25 18:28 Resp 19 02/10/25 18:28 BP 105/66 02/10/25 18:00 Pulse Ox 89 L 02/10/25 18:00 O2 Del Method Oxymask 02/10/25 18:00 O2 Flow Rate 3 02/10/25 18:00 Oxygen Flow Rate 2 02/10/25 17:07 BMI result Body Mass Index 23.4 Gen: Appears be in no acute distress HEENT: NCAT, Moist mucosa. Pulmonary: Bilateral wheezing present CVS: Normal S1-S2 Abdomen: BS+, Soft, Nontender Extremities: Warm well perfused Neuro: Alert and awake. Results Labs 02/10/25 18:29 02/10/25 18:29 Labs: Laboratory Results - last 24 hr 02/10/25 02/10/25 18:29 18:30 MCV 96.9 MCH 31.4 MCHC 32.4 RDW 13.1 Plt Count 234 MPV 9.5 Immature Gran % (Auto) 0.4 Neut % (Auto) 82.1 H Lymph % (Auto) 9.8 L [place] % (Auto) 2.6 Eos % (Auto) 4.6 H Baso % (Auto) 0.5 Lymph # (Auto) 1.4 [place] # (Auto) 0.4 Eos # (Auto) 0.7 H Baso # (Auto) 0.1 Abs Immat Gran (auto) 0.06 H Absolute Neuts (auto) 11.7 H Absolute Nucleated RBC 0.000 Nucleated RBC % (auto) 0.0 D-Dimer High Sensitivty 254 Anion Gap 11 L Estim Creat Clear Calc 118.6 Estimated GFR > 60 Random Glucose 123 H Lactic Acid 2.5 H* Calcium 9.0 Total Bilirubin 0.3 Direct Bilirubin 0.1 AST 20 ALT 19 Alkaline Phosphatase 75 Troponin I High Sens < 2.7 Total Protein 6.6 Albumin 4.1 Lipase 7 L Influenza Type A (PCR) NEGATIVE Influenza Type B (PCR) NEGATIVE RSV RNA Qual (PCR) NEGATIVE SARS-CoV-2 RNA (RT-PCR) NEGATIVE Assessment and Plan (1) Asthma with COPD with exacerbation: Status: Acute Plan 49-year-old male with a past medical history of asthma/COPD, tobacco dependence, pulmonary embolism on Eliquis, polysubstance use disorder; presented to the hospital today with a chief complaint of shortness of breath. Admitted for following Acute hypoxic respiratory failure: Acute asthma/COPD exacerbation: Patient was in mild respiratory distress, hypoxic to 87% on presentation. Improved after steroid and nebulizer treatments. Continue supplemental oxygen with goal oxygen saturation of 88-93% Trending pulse oximetry and ready for discharge Continue nebulizations standing and p.r.n. Continue azithromycin Lactic acidosis: Likely in the setting of hypoxia/dehydration HX pulmonary embolism: Continue home Eliquis Opiate dependence: Patient on methadone. Addiction Medicine consult DVT prophylaxis: Patient on Eliquis Code status: Full code Quality Stroke Does the patient have a stroke diagnosis?: No VTE Prior VTE?: No VTE Risk Level:: Medical - moderate - high VTE Device Contraindication: Treatment Not Indicated VTE Drug Contraindication: N/A - Med Ordered
--- NOTE | 2025-02-10 20:15 | PC.NURSE ---
this rn assumed care of pt, pt a&ox4, respirations even and unlabored. pt on 4l oxymax at this time sating 95-99%, pt offers no complaints at this time
[2025-02-10 20:34] LABS: Reflex Lactate? Lactic Acid Added
--- NOTE | 2025-02-10 20:44 | PHA.MEDREC ---
Addendum entered by French Stern, PharmD 02/10/25 20:59: med rec checked by [facility] Original Note: Pharmacy Consult ? Medication Reconciliation Pharmacy has completed the medication reconciliation. Attempted to speak with patient, how ever he would not wake. Utilized claim to confirm med list. Will have morning med rec team follow up with patient tomorrow.
--- NOTE | 2025-02-10 21:03 | PC.NURSE ---
pt medicated per jun, tolerated whole well with water
[2025-02-10 21:44] LABS: ~Lactic Acid-LAB USE ONLY 2.9 mmol/L (0.5-2.0)
[2025-02-10 23:19] LABS: Reflex Lactate? 2 Y
[2025-02-11] VITALS (12 sets, daily range): BP systolic 94–126; BP diastolic 54–71; PULSE 70–93; RESP 14–20; TEMP 36.5–37.2; O2SAT 91–96
[2025-02-11 00:11] LABS: ~Lactic Acid-LAB USE ONLY 5.6 mmol/L (0.5-2.0)
--- NOTE | 2025-02-11 00:12 | PC.NURSE ---
MD Dobbins aware of critical lactic 5.9, no new orders at this time
[2025-02-11] MEDS: Lactated Ringers 1,000 ML 50 ML IVCONT ×2 (00:57→20:15)
[2025-02-11 04:34] LABS: Hematocrit 37.4 % (42.0-52.0); Hemoglobin 12.4 g/dl (14.0-18.0); Imm Gran Abs Auto 0.04 X10*3/uL (0.00-0.03); Imm Gran Pct Auto 0.4 % (0.0-0.4); Lymphocytes Absolute Auto 0.6 X10*3/uL (1.2-4.9); MANUAL DIFF FLAG SCAN; Mean Corpuscular HGB Conc 33.2 g/dl (31.0-36.0); Mean Corpuscular Hemoglobin 31.6 pg (27.0-33.0); Mean Corpuscular Volume 95.2 fL (80.0-98.0); NRBC Abs Auto 0.000 X10*3/uL (0.0-0.012); NRBC Pct Auto 0.0 /100WBC (0.0-0.2); Platelet Count 248 X10*3/uL (160-400); Red Blood Count 3.93 X10*6/uL (4.60-5.80); SCAN SMEAR FLAG 1; White Blood Count 9.2 X10*3/uL (4.8-10.8)
[2025-02-11 04:50] LABS: Alanine Aminotransferase 18 U/L (0-40); Albumin Level 3.9 g/dL (3.5-5.0); Alkaline Phosphatase 65 U/L (39-117); Anion Gap 12 (12-20); Aspartate Amino Transferase 21 U/L (5-37); Blood Urea Nitrogen 15 mg/dL (9-16); Calcium 9.0 mg/dL (8.4-10.2); Carbon Dioxide 25 mmol/L (22-29); Chloride 105 mmol/L (96-108); Creatinine Clr Calc Pharmacy 120.0; Estimated Glomerular Filt Rate > 60; Potassium 4.3 mmol/L (3.3-5.1); Sodium 138 mmol/L (135-145); Total Protein 6.2 g/dL (6.5-8.0)
[2025-02-11 06:16] LABS: Reflex Lactate? Lactic Acid Added
[2025-02-11 06:59] LABS: ~Lactic Acid-LAB USE ONLY 3.7 mmol/L (0.5-2.0)
[2025-02-11] MEDS: Albuterol/Iprat 2.5/0.5MG 3 ML AMPUL.NEB INHALE ×4 (07:36→20:48)
--- NOTE | 2025-02-11 08:11 | PC.NURSE ---
Methadone verified with deann londono lpn at [facility]. Patient receives 58mg of methadone daily
--- NOTE | 2025-02-11 08:14 | PC.NURSE ---
Patient reports has been taking methadone 58mg daily using take bottles. Last does was yesterday morning
--- NOTE | 2025-02-11 08:21 | HE.PHANOTE ---
RE: METHADONE Patient received 6 take home doses of methadone 58 mg from [facility] [phone] on 02/05/25 per ABDIEL Russ. Per nurse Jalloh's note, pt said he last took his home dose of methadone 58 mg on 02/10/25.
[2025-02-11] MEDS: methADONE HCl 20 MG/2 ML ORAL.CONC 60 MG PO (08:31)
[2025-02-11 08:36] LABS: Reflex Lactate? 2 Y
[2025-02-11 09:20] LABS: ~Lactic Acid-LAB USE ONLY 2.2 mmol/L (0.5-2.0)
--- NOTE | 2025-02-11 09:20 | MHC.CM.PN ---
CM met with Patient at bedside, in the ED. Patient lives in a house with his Significant Other/HCP/Kristie and he receives his Methadone from [facility] & his O2 from [facility]. Home/resume said services is the goal and CM has initiated and will follow for dc planning. Patient has changed insurance and is working on securing a new PCP. Patient will need assist with transport at dc.
--- NOTE | 2025-02-11 09:34 | PC.NURSE ---
reports feeling much better than yesterday, deneis sob or wheezing. medicated per jun, ate well for breakfast
[2025-02-11 10:00] LABS: Cancel Lactic Acid Canceled
[2025-02-11] MEDS: guaiFENesin DM 100/10/5 ML 5 ML SYRUP PO ×2 (10:24→20:12)
[2025-02-11 11:56] LABS: Appearance Urine Clear; Glucose Urine UA 500 mg/dL (Negative); PH 7.5 (5.0-9.0); Specific Gravity - Urine 1.020 (1.005-1.025)
--- NOTE | 2025-02-11 12:29 | HO.PM.IMPN ---
Subjective Subjective Date of Service: 02/11/25 Interval History: improving, still sob, wheezy Physical Exam Exam: Exam: General: AO X 3, no acute distress Resp: wheezing bilateral, no accessory muscles used CVS: S1,S2,RRR GI: soft, non tender, non distended Neuro: motor grossly intact, alert Psych: appropriate affect, appropriate insight Vital Signs: Vital Signs: Last Vital Signs Temp 98.3 F 02/11/25 08:51 Pulse 85 02/11/25 11:11 Resp 14 02/11/25 11:11 BP 107/62 02/11/25 08:51 Pulse Ox 93 02/11/25 08:51 O2 Del Method Nasal Cannula 02/11/25 08:51 O2 Flow Rate 2 02/11/25 08:51 Oxygen Flow Rate 2 02/10/25 17:07 BMI result Body Mass Index 23.4 Objective Data Active Medications Acetaminophen (Acetaminophen 325 Mg Tablet) 650 mg PO Q6H PRN PRN Reason: Pain, Mild 1-3,fever,headache Albuterol/Ipratropium (Albuterol/Iprat 2.5/0.5mg 3 Ml Ampul.Neb) 3 ml INHALE Q4H PRN PRN Reason: Shortness of Breath/Wheezing Albuterol/Ipratropium (Albuterol/Iprat 2.5/0.5mg 3 Ml Ampul.Neb) 3 ml INHALE RQ4H WHILE AWAKE [facility] Last Admin: 02/11/25 11:11 Dose: 3 ml Documented By: ANTONY Apixaban (Apixaban 5 Mg Tablet) 5 mg PO BID [facility] Last Admin: 02/11/25 08:34 Dose: 5 mg Documented By: JANI Azithromycin (Azithromycin 500 Mg Tablet) 500 mg PO Q24H [facility] Last Admin: 02/10/25 21:02 Dose: 500 mg Documented By: KOURTNEY Calcium Carbonate (Calcium Carbonate 750 Mg Tab.Chew) 750 mg PO Q4H PRN PRN Reason: Heartburn Enoxaparin Sodium (Enoxaparin Sodium 40 Mg/0.4 Ml Syringe) 40 mg SUBCUT Q24H [facility] Last Admin: 02/10/25 21:03 Dose: 40 mg Documented By: KOURTNEY Famotidine (Famotidine 20 Mg Tablet) 20 mg PO DAILY [facility] Last Admin: 02/11/25 08:34 Dose: 20 mg Documented By: JANI Fluticasone/Vilanterol (Fluticasone/Vilanterol 200/25 Blst.W.Dev) 1 puff INHALE RDAILY [facility] Guaifenesin/Dextromethorphan (Guaifenesin Dm 100/10/5 Ml 5 Ml Syrup) 5 ml PO Q4H PRN PRN Reason: Cough Last Admin: 02/11/25 10:24 Dose: 5 ml Documented By: JANI Lactated Ringer's (Lr) 1,000 mls @ 50 mls/hr IVCONT .Q20H [facility] Last Admin: 02/11/25 00:57 Dose: 50 mls/hr Documented By: KOURTNEY Magnesium Hydroxide (Milk Of Magnesia 30 Ml Oral.Susp) 30 ml PO DAILY PRN PRN Reason: Constipation Melatonin (Melatonin 3 Mg Tablet) 6 mg PO BEDTIME PRN PRN Reason: Insomnia Methadone HCl (Methadone Hcl 20 Mg/2 Ml Oral.Conc) 60 mg PO DAILY@0800 [facility] Last Admin: 02/11/25 08:31 Dose: 60 mg Documented By: JANI Co-signed By: MIRA Methylprednisolone Sodium Succinate (Methylprednisolone Sod Succ 40 Mg/Ml Vial) 40 mg IVPUSH Q12H [facility] Montelukast Sodium (Montelukast Sodium 10 Mg Tablet) 10 mg PO BEDTIME [facility] Sodium Chloride (0.9 % Sodium Chloride Flush 3 Ml Syringe) 3 ml IVFLUSH QSHIFT [facility] Last Admin: 02/11/25 07:16 Dose: Not Given Documented By: JANI Non-Admin Reason: IV Running Labs 02/11/25 04:11 02/11/25 04:11 Labs: Laboratory Results - last 24 hr 02/10/25 02/10/25 02/10/25 18:29 18:30 21:12 MCV 96.9 MCH 31.4 MCHC 32.4 RDW 13.1 Plt Count 234 MPV 9.5 Immature Gran % (Auto) 0.4 Neut % (Auto) 82.1 H Lymph % (Auto) 9.8 L Craig % (Auto) 2.6 Eos % (Auto) 4.6 H Baso % (Auto) 0.5 Lymph # (Auto) 1.4 Craig # (Auto) 0.4 Eos # (Auto) 0.7 H Baso # (Auto) 0.1 Abs Immat Gran (auto) 0.06 H Absolute Neuts (auto) 11.7 H Absolute Nucleated RBC 0.000 Nucleated RBC % (auto) 0.0 Smear Tech's Comments D-Dimer High Sensitivty 254 Anion Gap 11 L Estim Creat Clear Calc 118.6 Estimated GFR > 60 Random Glucose 123 H Lactic Acid 2.5 H* Lactic Acid F/U @ 2Hr 2.9 H* Lactic Acid F/U @ 4Hr Calcium 9.0 Total Bilirubin 0.3 Direct Bilirubin 0.1 AST 20 ALT 19 Alkaline Phosphatase 75 Troponin I High Sens < 2.7 Total Protein 6.6 Albumin 4.1 Lipase 7 L Urine Color Urine Appearance Urine pH Ur Specific [place] Urine Protein Urine Glucose (UA) Urine Ketones Urine Blood Urine Nitrite Ur Leukocyte Esterase Influenza Type A (PCR) NEGATIVE Influenza Type B (PCR) NEGATIVE RSV RNA Qual (PCR) NEGATIVE SARS-CoV-2 RNA (RT-PCR) NEGATIVE 02/10/25 02/11/25 02/11/25 23:38 04:11 06:28 MCV 95.2 MCH 31.6 MCHC 33.2 RDW 12.9 Plt Count 248 MPV 9.8 Immature Gran % (Auto) 0.4 Neut % (Auto) 92.4 H Lymph % (Auto) 6.3 L Craig % (Auto) 0.8 L Eos % (Auto) 0.0 Baso % (Auto) 0.1 Lymph # (Auto) 0.6 L Craig # (Auto) 0.1 Eos # (Auto) 0.0 Baso # (Auto) 0.0 Abs Immat Gran (auto) 0.04 H Absolute Neuts (auto) 8.5 H Absolute Nucleated RBC 0.000 Nucleated RBC % (auto) 0.0 Smear Tech's Comments VERIFIED D-Dimer High Sensitivty Anion Gap 12 Estim Creat Clear Calc 120.0 Estimated GFR > 60 Random Glucose 208 H Lactic Acid 3.1 H* Lactic Acid F/U @ 2Hr 3.7 H* Lactic Acid F/U @ 4Hr 5.6 H* Calcium 9.0 Total Bilirubin 0.2 Direct Bilirubin AST 21 ALT 18 Alkaline Phosphatase 65 Troponin I High Sens Total Protein 6.2 L Albumin 3.9 Lipase Urine Color Urine Appearance Urine pH Ur Specific [place] Urine Protein Urine Glucose (UA) Urine Ketones Urine Blood Urine Nitrite Ur Leukocyte Esterase Influenza Type A (PCR) Influenza Type B (PCR) RSV RNA Qual (PCR) SARS-CoV-2 RNA (RT-PCR) 02/11/25 02/11/25 08:46 11:50 MCV MCH MCHC RDW Plt Count MPV Immature Gran % (Auto) Neut % (Auto) Lymph % (Auto) Craig % (Auto) Eos % (Auto) Baso % (Auto) Lymph # (Auto) Craig # (Auto) Eos # (Auto) Baso # (Auto) Abs Immat Gran (auto) Absolute Neuts (auto) Absolute Nucleated RBC Nucleated RBC % (auto) Smear Tech's Comments D-Dimer High Sensitivty Anion Gap Estim Creat Clear Calc Estimated GFR Random Glucose Lactic Acid Lactic Acid F/U @ 2Hr Lactic Acid F/U @ 4Hr 2.2 H* Calcium Total Bilirubin Direct Bilirubin AST ALT Alkaline Phosphatase Troponin I High Sens Total Protein Albumin Lipase Urine Color Yellow Urine Appearance Clear Urine pH 7.5 Ur Specific [place] 1.020 Urine Protein Negative Urine Glucose (UA) 500 H Urine Ketones Negative Urine Blood Negative Urine Nitrite Negative Ur Leukocyte Esterase Negative Influenza Type A (PCR) Influenza Type B (PCR) RSV RNA Qual (PCR) SARS-CoV-2 RNA (RT-PCR) Assessment and Plan (1) Cocaine use: Status: Acute Plan 49M PMH severe persistent asthma/COPD, polysubastance dependence, PE on eliquis, presented with sob acute hypoxic respiratory failure due to severe persistent asthma/COPD with acute decompensation. Continue steroids and DuoNebs and wean O2 as tolerated. Acute lactic acid Due to hypoxia and albuterol not sepsis History of pulmonary embolism eliquis Polysubstance depend Continue methadone DVT prophylaxis on eliquis full code reason for continued hospitalization:hypoxia Quality Stroke Does the patient have a stroke diagnosis?: No VTE Prior VTE?: No VTE Risk Level:: Medical - moderate - high VTE Device Contraindication: Treatment Not Indicated VTE Drug Contraindication: N/A - Med Ordered
[2025-02-12 03:43] VITALS: BP 118/70; PULSE 70; RESP 17; TEMP 36.8; O2SAT 93
[2025-02-12 07:21] LABS: Hematocrit 37.8 % (42.0-52.0); Hemoglobin 12.5 g/dl (14.0-18.0); Mean Corpuscular HGB Conc 33.1 g/dl (31.0-36.0); Mean Corpuscular Hemoglobin 31.3 pg (27.0-33.0); Mean Corpuscular Volume 94.5 fL (80.0-98.0); NRBC Abs Auto 0.000 X10*3/uL (0.0-0.012); NRBC Pct Auto 0.0 /100WBC (0.0-0.2); Platelet Count 287 X10*3/uL (160-400); Red Blood Count 4.00 X10*6/uL (4.60-5.80); White Blood Count 24.8 X10*3/uL (4.8-10.8)
[2025-02-12 07:34] LABS: Anion Gap 12 (12-20); Blood Urea Nitrogen 20 mg/dL (9-16); Calcium 9.2 mg/dL (8.4-10.2); Carbon Dioxide 26 mmol/L (22-29); Chloride 107 mmol/L (96-108); Creatinine Clr Calc Pharmacy 147.3; Estimated Glomerular Filt Rate > 60; Potassium 4.5 mmol/L (3.3-5.1); Sodium 140 mmol/L (135-145)
[2025-02-12] MEDS: Albuterol/Iprat 2.5/0.5MG 3 ML AMPUL.NEB INHALE (07:40)
[2025-02-12 07:41] VITALS: PULSE 70; RESP 17
[2025-02-12 08:00] VITALS: BP 108/67; PULSE 77; RESP 18; TEMP 36.1; O2SAT 93
[2025-02-12] MEDS: methADONE HCl 20 MG/2 ML ORAL.CONC 60 MG PO (08:40)
[2025-02-12] MEDS: 0.9 % Sodium Chloride Flush 3 ML SYRINGE IVFLUSH (08:40)
[2025-02-12] MEDS: guaiFENesin DM 100/10/5 ML 5 ML SYRUP PO (08:41)
--- NOTE | 2025-02-12 09:22 | PM.DS ---
DS: Providers Provider Date of Service: 02/12/25 Date of admission: 02/10/25 20:06 Date of discharge: 02/12/25 Primary care physician: None Physician DS: Diagnosis Discharge Diagnosis (1) Cocaine use: Status: Acute DS: Summary Hospital Course Hospital Course: from initial hpi: 49-year-old male with a past medical history of asthma/COPD, tobacco dependence, pulmonary embolism on Eliquis, polysubstance use disorder; presented to the hospital today with a chief complaint of shortness of breath. Patient mentioned that for the past 2 days he has been having shortness of breath which has been gradually worsening. Denies using home oxygen at baseline but he has home oxygen available at home to use it when needed. He put home oxygen at 5 L at home still feeling short of breath hence presented to the ER for further evaluation. Denies any chest pain or palpitations. Reports having cough with yellow sputum production. Denies any sick contacts. Review of all other systems is negative except mentioned above ER course: Per ER team, patient on presentation noted to be short of breath, wheezing bilaterally, appears to be in mild respiratory distress; given nebulizations and steroids with improvement in respiratory status. hospital course: Patient was admitted for acute hypoxic respiratory failure due to severe persistent asthma and COPD with acute decompensation. Was treated with steroids and DuoNebs and weaned to room air. Shortness of breath significantly improved and patient is ambulating with minimal shortness of breath. Acute lactic acidosis was due to hypoxia and albuterol not sepsis. For history of pulmonary embolism was continued on apixaban. For polysubstance dependence was continued on methadone and he is advised to avoid all illicit drugs. Patient will be discharged home and will continue with 5 days of prednisone and 3 days of azithromycin. Time Attestation Discharge Coordination Time (in mins): 33 Quality: Safe Use of Opioids Does Pt have an Active Cancer Diagnosis on the Problem List?: No Quality: Stroke Does the patient have a stroke diagnosis?: No Physical Exam Exam: Exam: General: AO X 3, no acute distress Resp: CTA bilateral, no accessory muscles used CVS: S1,S2,RRR GI: soft, non tender, non distended Neuro: motor grossly intact, alert Psych: appropriate affect, appropriate insight Vital Signs: Vital Signs: Last Vital Signs Temp 97.0 F 02/12/25 08:00 Pulse 77 02/12/25 08:00 Resp 18 11/06/25 08:00 BP 108/67 02/12/25 08:00 Pulse Ox 93 02/12/25 08:00 O2 Del Method Nasal Cannula 02/12/25 08:00 O2 Flow Rate 1 02/12/25 08:00 Oxygen Flow Rate 2 02/10/25 17:07 BMI result Body Mass Index 23.4 DS: Data Data Completed and Pending Completed studies during hospitalization [Text1]: Procedures Assistance with Respiratory Ventilation, Less than 24 Consecutive Hours, Continuous Positive Airway Pressure (09/14/23) Labs on day of discharge: Laboratory Results - last 24 hr 02/11/25 02/12/25 11:50 06:42 WBC 24.8 H RBC 4.00 L Hgb 12.5 L Hct 37.8 L MCV 94.5 MCH 31.3 MCHC 33.1 RDW 13.2 Plt Count 287 MPV 10.1 Absolute Nucleated RBC 0.000 Nucleated RBC % (auto) 0.0 Sodium 140 Potassium 4.5 Chloride 107 Carbon Dioxide 26 Anion Gap 12 BUN 20 H Creatinine 0.66 Estim Creat Clear Calc 147.3 Estimated GFR > 60 Random Glucose 127 H Calcium 9.2 Urine Color Yellow Urine Appearance Clear Urine pH 7.5 Ur Specific [place] 1.020 Urine Protein Negative Urine Glucose (UA) 500 H Urine Ketones Negative Urine Blood Negative Urine Nitrite Negative Ur Leukocyte Esterase Negative Preliminary micro results at discharge 02/10/25 18:34 Blood Culture - Preliminary Blood - Venous No growth after 24 hours. 02/10/25 18:29 Blood Culture - Preliminary Blood - Venous No growth after 24 hours. Discharge Plan Discharge Anticipated Discharge Date/Time: 02/12/25 09:17 Patient Disposition: Home, Self-Care Discharge Diagnosis: asthma/copd Referrals: Physician,None [Primary Care Provider, Medical] - 1 Week Discharge Medications: New azithromycin 500 mg Tablet 500 mg PO Q24H Qty: 3 0RF prednisone 20 mg tablet 40 mg PO DAILY Qty: 10 0RF Continued (DME) nebulizers Misc See Rx Instructions .Route Qty: 1 0RF Rx Instructions: Use every 4 hours as needed for SOB, wheezing albuterol sulfate 90 mcg/actuation HFA aerosol inhaler 2 puff inhalation Q4-6H PRN (Reason: shortness of breath or wheezing) Qty: 3 4RF albuterol sulfate 2.5 mg /3 mL (0.083 %) solution for nebulization 2.5 mg inhalation Q4-6H PRN (Reason: for wheezing) Qty: 150 3RF methadone [Methadose] 10 mg/mL Concentrate 58 mg PO DAILY Rx Instructions: Verified dose on 07/06/24 with [facility] [phone] Trelegy Ellipta 200-62.5-25 mcg blister with device 1 ea inhalation DAILY fluticasone furoate-vilanterol [Breo Ellipta] 200-25 mcg/dose blister with device 1 ea INHALATION DAILY montelukast 10 mg Tablet 10 mg PO BEDTIME Qty: 90 0RF Eliquis 5 mg tablet 5 mg PO BID 90 Days Qty: 180 4RF Discharge Orders: Discharge Order (Routine); Ordered 02/12/25 Ordered By: Min Mccormick Diet: Advance to usual diet Activity on Discharge: As tolerated Stand Alone Forms: Patient Portal Discharge page Print Language: [place] Care Plan Goals: recovery Health Concerns: asthma/copd Plan of Treatment: 5 more days prednisone, 3 more days azithro do not use illicit drugs Assessment: see above
--- NOTE | 2025-02-12 09:51 | MHC.CM.PN ---
Patient has been medically cleared for dc to home today, self care.
== END 2025-02-12 10:35 | disposition home or self-care (01) | DRG 140 ==
LOC: HO.ED 20:02 → HO.EDOVER 20:21 → HO.IMC 02-11 15:54
PROVIDERS: Admitting Provider Hospitalist; Emergency Provider Emergency Medicine; Visit Provider Internal Medicine
DX: J44.1 Chronic obstructive pulmonary disease with (acute) exacerbation (principal); J96.01 Acute respiratory failure with hypoxia; F11.20 Opioid dependence, uncomplicated; E86.0 Dehydration; F17.210 Nicotine dependence, cigarettes, uncomplicated; J45.51 Severe persistent asthma with (acute) exacerbation; Z71.6 Tobacco abuse counseling; E87.21 Acute metabolic acidosis; Z20.822 Contact with and (suspected) exposure to COVID-19; Z79.51 Long term (current) use of inhaled steroids; Z79.899 Other long term (current) drug therapy
CPT/HCPCS: 36415; 71045; 80048; 80053; 80076; 81003; 83605; 83690; 84484; 85025; 85027; 85379; 87040; 87637; 93005; 94640; 99222; 99285; J1650; J2919; J3475; J7120

== ENCOUNTER → 2025-02-10 17:00 | Outpatient (BNV) | payer OTHER, SELFPAY | PROVIDERS: Admitting Provider Hospitalist; Emergency Provider Emergency Medicine; Visit Provider Internal Medicine Cardiovascular Disease | DX: R06.02 Shortness of breath (principal) | CPT/HCPCS: 93010 ==

== ENCOUNTER → 2025-02-10 17:01 | Outpatient (BNV) | payer OTHER, SELFPAY | PROVIDERS: Emergency Provider Emergency Medicine; Visit Provider Radiology Diagnostic Radiology | DX: R06.02 Shortness of breath (principal) | CPT/HCPCS: 71045 ==

== ENCOUNTER → 2025-02-10 20:06 | Outpatient (BNV) | payer OTHER, SELFPAY | PROVIDERS: Admitting Provider Hospitalist; Emergency Provider Emergency Medicine; Visit Provider Internal Medicine | DX: J44.1 Chronic obstructive pulmonary disease with (acute) exacerbation (principal); J45.901 Unspecified asthma with (acute) exacerbation; F14.90 Cocaine use, unspecified, uncomplicated | CPT/HCPCS: 99223; 99233; 99239 ==

== ENCOUNTER 2025-02-12 08:24 | Outpatient (REF) | payer OTHER, SELFPAY ==
--- OUTSIDE RECORDS SUMMARY | 2025-02-13 08:54 | XMS_ITS | Encounter Summary ---
Author Organization [employer] Address [address] [place] [address] Care Team Providers Care Environmental Engineering Manager Name Role Phone Unavailable Primary Care Provider Unavailabl e Reason for Visit * Reason Comments Med Refill Encounter Details Date Type Department Care Team (Late st Contact Info) Description 08/06/2024 Refill [facility] ADULT DENTAL [address], [place] [phone] Lenora Fishman DDS [address], [place] [phone] Social History Tobacco Use Types Packs/Day Years [...]
--- OUTSIDE RECORDS SUMMARY | 2025-02-13 08:54 | XMS_ITS | Encounter Summary ---
Author Organization [employer] Address [address] [facility] [address] [place] [address] Care Team Providers Care Dog Handler Name Role Phone Unavailable Primary Care Provider Unavailabl e Reason for Visit * Reason Comments Med Refill Encounter Details Date Type Department Care Team (Late st Contact Info) Description 12/04/2024 Refill [facility] ADULT DENTAL [address] [place], [place] [phone] Lenora Fishman, DDS [address] [place], [place] [phone] Social History Tobacco Use Types Packs/Day Years [...]
--- OUTSIDE RECORDS SUMMARY | 2025-02-13 08:54 | XMS_ITS | Encounter Summary ---
Author Organization [employer] Address [address] [facility] [address] [place] [address] Care Team Providers Care Cardiology Teacher Name Role Phone Unavailable Primary Care Provider Unavailabl e Reason for Visit * Reason Comments Med Refill Encounter Details Date Type Department Care Team (Late st Contact Info) Description 05/30/2024 Refill [facility] ADULT DENTAL [address], [place] [phone] Lenora Fishman DDS [address], [place] [phone] Social History Tobacco Use Types Packs/Day Years [...]
--- OUTSIDE RECORDS SUMMARY | 2025-02-13 08:54 | XMS_ITS | Encounter Summary ---
Author Organization [employer] Address [address] [facility] [address] [place] [address] Care Team Providers Care Gravel Inspector Name Role Phone Unavailable Primary Care Provider Unavailabl e Reason for Visit * Reason Comments Med Refill Encounter Details Date Type Department Care Team (Late st Contact Info) Description 06/29/2024 Refill [facility] ADULT DENTAL [address] [place], [place] [phone] Lenora Fishman DDS [address] [place], [place] [phone] Social History Tobacco Use Types Packs/Day Years [...]
--- OUTSIDE RECORDS SUMMARY | 2025-02-13 08:54 | XMS_ITS | Encounter Summary ---
Author Organization [employer] Address [address] [facility] [address] [place] [address] Care Team Providers Care Blogs Manager Name Role Phone Unavailable Primary Care Provider Unavailabl e Reason for Visit * Reason Comments Med Refill Encounter Details Date Type Department Care Team (Late st Contact Info) Description 05/30/2024 Refill [facility] ADULT DENTAL [address] [place], [place] [phone] Irineo Harris DDS [address] [place], [place] [phone] Social History Tobacco Use Types Packs/Day Years [...]
--- OUTSIDE RECORDS SUMMARY | 2025-02-13 08:54 | XMS_ITS | Encounter Summary ---
Author Organization [employer] Address [address] [facility] [address] [place] [address] Care Team Providers Care Motor Boss Name Role Phone Unavailable Primary Care Provider Unavailabl e Reason for Visit * Reason Comments Med Refill Encounter Details Date Type Department Care Team (Late st Contact Info) Description 08/06/2024 Refill [facility] ADULT DENTAL [address] [place], [place] [phone] Abelino López DMD [address] [place] [address] Social History Tobacco Use Types Packs/Day Years [...]
--- OUTSIDE RECORDS SUMMARY | 2025-02-13 08:54 | XMS_ITS | Encounter Summary ---
Author Organization [employer] Address [address] [facility] 7t [place] [address] Care Team Providers Care Network Firewall Engineer Name Role Phone Unavailable Primary Care Provider Unavailabl e Reason for Visit * Reason Comments Med Refill Encounter Details Date Type Department Care Team (Late st Contact Info) Description 08/29/2024 Refill [facility] ADULT DENTAL [address] [place], [place] [phone] Abelino López DMD [address] [place] [address] Social History Tobacco Use Types Packs/Day Years [...]
--- OUTSIDE RECORDS SUMMARY | 2025-02-13 08:55 | XMS_ITS | Encounter Summary ---
Author Organization [employer] Address [address] [facility] 7t [place] [address] Care Team Providers Care Shirt Bander Name Role Phone Unavailable Primary Care Provider Unavailabl e Reason for Visit * Reason Comments Med Refill Encounter Details Date Type Department Care Team (Late st Contact Info) Description 09/13/2024 Refill [facility] ADULT DENTAL [address] [place], [place] [phone] Abelino López DMD [address] [place] [address] Social History Tobacco Use Types Packs/Day Years [...]
--- OUTSIDE RECORDS SUMMARY | 2025-02-13 08:55 | XMS_ITS | Encounter Summary ---
Author Organization [employer] Address [address] [facility] 7t [place] [address] Care Team Providers Care Yardage Control Operator Forming Name Role Phone Unavailable Primary Care Provider Unavailabl e Reason for Visit * Reason Comments Med Refill Encounter Details Date Type Department Care Team (Late st Contact Info) Description 10/11/2024 Refill [facility] ADULT DENTAL [address] [place], [place] [phone] Abelino López DMD [address] [place] [address] Social History Tobacco Use Types Packs/Day Years [...]
--- OUTSIDE RECORDS SUMMARY | 2025-02-13 08:55 | XMS_ITS | Clinical Summary ---
Author Organization [employer] Address [address] [facility] 7t [place] [address] Care Team Providers Care Java Web Application Developer Name Role Phone Unavailable Primary Care Provider [...] Type Department Care Team Description 12/26/2024 Refill [facility] ADULT DENTAL [address] [place] [address] Abelino López DMD 12/04/2024 Refill [facility] ADULT DENTAL [address] [place] [address] Lenora Fishman DDS from Last 3 Months Social History Tobacco [...] Most Recently Relevant to Health Maintenance Insurance [facility] MEDICAID STAND ADULT
--- OUTSIDE RECORDS SUMMARY | 2025-02-13 08:55 | XMS_ITS | Encounter Summary ---
Author Organization [employer] Address [address] [facility] 7t [place] [address] Care Team Providers Care Sleeve Setter Safety Stitch Name Role Phone Unavailable Primary Care Provider Unavailabl e Reason for Visit * Reason Comments Med Refill Encounter Details Date Type Department Care Team (Late st Contact Info) Description 12/26/2024 Refill [facility] ADULT DENTAL [address] [place] [address] Abelino López DMD [address] [place] [address] Social History Tobacco Use Types Packs/Day Years [...]
--- OUTSIDE RECORDS SUMMARY | 2025-02-13 08:55 | XMS_ITS | Encounter Summary ---
Author Organization [employer] Address [address] [facility] 7t [place] [address] Care Team Providers Care Central Office Repairer Supervisor Name Role Phone Unavailable Primary Care Provider Unavailabl e Reason for Visit * Reason Comments Med Refill Encounter Details Date Type Department Care Team (Late st Contact Info) Description 11/11/2024 Refill [facility] ADULT DENTAL [address] [place], [place] [phone] Abelino López, DMD [address] [place] [address] Social History Tobacco Use Types Packs/Day Years [...]
--- OUTSIDE RECORDS SUMMARY | 2025-02-13 08:55 | XMS_ITS | Encounter Summary ---
Author Organization [employer] Address [address] [facility] 7t [place] [address] Care Team Providers Care Senior Inspector Name Role Phone Unavailable Primary Care Provider Unavailabl e Reason for Visit * Reason Comments Med Refill Encounter Details Date Type Department Care Team (Late st Contact Info) Description 07/21/[address] [facility] ADULT DENTAL [address] [place], [place] [phone] Lenora Fishman, DDS [address] [place], [place] [phone] Social History Tobacco Use Types Packs/Day Years [...]
--- OUTSIDE RECORDS SUMMARY | 2025-02-13 08:55 | XMS_ITS | Encounter Summary ---
Author Organization [employer] Address [address] [facility] 7[address] [place] [address] Care Team Providers Care Post Framer Name Role Phone Unavailable Primary Care Provider Unavailabl e Reason for Visit * Reason Comments Med Refill Encounter Details Date Type Department Care Team (Late st Contact Info) Description 04/05/2024 Refill [facility] ADULT DENTAL [address] [place], [place] [phone] Lenora Fishman DDS [address] [place], [place] [phone] Social History Tobacco Use Types Packs/Day Years [...]
== END 2025-02-12 08:25 | disposition home or self-care (01) ==
LOC: HO.HOSX 08:24
PROVIDERS: Visit Provider Physician Assistant
DX: Z13.89 Encounter for screening for other disorder (principal)

== ENCOUNTER 2025-02-24 19:50 | Inpatient (IN) | payer OTHER, SELFPAY ==
--- NOTE | 2025-02-24 | ECG_ITS ---
Test Reason : sob Blood Pressure : */* mmHG Vent. Rate : 111 BPM Atrial Rate : 111 BPM P-R Int : 144 ms QRS Dur : 74 ms QT Int : 320 ms P-R-T Axes : 81 95 80 degrees QTcB Int : 435 ms Sinus tachycardia Rightward axis Pulmonary disease pattern Abnormal ECG When compared with ECG of 10-Feb-2025 18:11, No significant change was found Referred By: Generic ED Physician Electronically Signed By: ANA JO
--- NOTE | ~2025-02-24 | XR_ITS ---
CLINICAL HISTORY: SOB 1 view chest x-ray Comparison: CR - XR CHEST 1V - 02/10/25 17:30 EST Findings: Heart size is normal. No consolidation, significant pleural effusion or pneumothorax. Lungs are hyperinflated. No acute fracture. IMPRESSION: 1. No acute findings. This document has been electronically signed by: Lorna Holt MD on 02/24/2025 20:56:18
[2025-02-24 19:55] VITALS: BP 124/76; BP 134/80; PULSE 115; PULSE 128; RESP 21; TEMP 36.6; O2SAT 90; O2SAT 96; BMI 18.4
[2025-02-24 19:58] VITALS: BP 134/80; PULSE 109; RESP 24; TEMP 36.7; O2SAT 95
[2025-02-24] MEDS: Albuterol Sulfate 7.5 MG, Albuterol Sulfate (0.083%) 2.5 MG 10 MG INHALE (20:03)
--- NOTE | 2025-02-24 20:03 | PC.NURSE ---
pt lobo from home, pt was recently seen here for SOB, given prednisone (4day taper), pt reports finishing the medication and symptoms returned quickly. Pt confirms usually getting 10 day taper, reports uncontrolled asthma needing to use nebulizer often to control. EMS reports pt at 94% SP02 on room air, given duoneb, magnesium and solumedrol by EMS. respiratory therapy at bedside. pt denies pain.
[2025-02-24 20:05] VITALS: PULSE 110; RESP 21; O2SAT 90
[2025-02-24 20:16] LABS: MANUAL DIFF FLAG NO
[2025-02-24 20:17] LABS: Hematocrit 42.3 % (42.0-52.0); Hemoglobin 14.1 g/dl (14.0-18.0); Imm Gran Abs Auto 0.05 X10*3/uL (0.00-0.03); Imm Gran Pct Auto 0.5 % (0.0-0.4); Lymphocytes Absolute Auto 2.3 X10*3/uL (1.2-4.9); Mean Corpuscular HGB Conc 33.3 g/dl (31.0-36.0); Mean Corpuscular Hemoglobin 31.6 pg (27.0-33.0); Mean Corpuscular Volume 94.8 fL (80.0-98.0); NRBC Abs Auto 0.000 X10*3/uL (0.0-0.012); NRBC Pct Auto 0.0 /100WBC (0.0-0.2); Platelet Count 237 X10*3/uL (160-400); Red Blood Count 4.46 X10*6/uL (4.60-5.80); White Blood Count 11.0 X10*3/uL (4.8-10.8)
[2025-02-24 20:38] LABS: Alanine Aminotransferase 18 U/L (0-40); Albumin Level 4.4 g/dL (3.5-5.0); Alkaline Phosphatase 73 U/L (39-117); Anion Gap 13 (12-20); Aspartate Amino Transferase 18 U/L (5-37); Blood Urea Nitrogen 11 mg/dL (9-16); Calcium 9.3 mg/dL (8.4-10.2); Carbon Dioxide 25 mmol/L (22-29); Chloride 105 mmol/L (96-108); Creatinine Clr Calc Pharmacy 98.1; Estimated Glomerular Filt Rate > 60; Magnesium 2.7 mg/dL (1.6-2.6); Potassium 4.1 mmol/L (3.3-5.1); Sodium 139 mmol/L (135-145); Total Protein 6.8 g/dL (6.5-8.0)
[2025-02-24 22:00] VITALS: PULSE 99; RESP 17; TEMP 36.7; O2SAT 92
--- NOTE | 2025-02-24 22:45 | ED_ITS ---
HPI - SOB/Dyspnea General Chief Complaint: Dyspnea Stated Complaint: SOB, hx of Asthma, wheezy, 96% on NRB Time Seen by Provider: 02/24/25 22:11 Source: patient and EMS Mode of arrival: EMS Limitations: no limitations History of Present Illness ED Provider: Dr. Mariela Martino HPI Narrative: Patient comes to the emergency room complaining of shortness of breath that started couple of days ago. Patient known to have asthma. Patient denies worsening cough, denies productive cough, denies fever chills. Per EMS, patient received DuoNebs, Solu-Medrol 125 mg that magnesium 2 g. Patient states that he does feel a bit better. However, he feels very short of breath if he gets up and walks Related Data Home Medications ?Medication ?Instructions ?Recorded ?Confirmed methadone 10 mg/mL oral 58 mg PO DAILY 04/18/2308/31 concentrate (Methadose) fluticasone fur. 200 mcg-umeclid 1 ea inhalation DAILY 09/20/24 02/10/25 62.5 mcg-vilant 25 mcg inhalat.powder (Trelegy Ellipta) fluticasone furoate 200 1 ea inhalation DAILY 02/10/25 mcg-vilanterol 25 mcg/dose inhalation powder (Breo Ellipta) Previous Rx's ?Medication ?Instructions ?Recorded nebulizers #1 ea 11/26/20 apixaban 5 mg tablet (Eliquis) 5 mg PO BID 90 days #18 0 tabs 04/01/24 albuterol sulfate 90 mcg/actuation 2 puff inhalation Q 4-6H PRN 04/10/24 aerosol inhaler shortness of breath or wheez ing #3 ea montelukast 10 mg tablet 10 mg PO BEDTIME #90 tabs azithromycin 500 mg tablet 500 mg PO Q24H #3 tabs 10/01 prednisone 20 mg tablet 40 mg (2 x 20 mg) PO DAILY # 10 tabs 02/12/25 albuterol sulfate 2.5 mg/3 mL 2.5 mg (3 mL) inhalation Q4-6H PRN 02/16/25 (0.083 %) solution for nebulization for wheezing #150 mL Allergies Allergy/AdvReac Type Severity Reaction Status Date / Time walnut Allergy Severe SWELLING Verified 02/24/25 19:59 buprenorphine (From Suboxone) Allergy swelling Verified 02/24/25 19:59 in his hands and rash naloxone (From Suboxone) Allergy swelling Verified 02/24/25 19:59 in his hands and rash walnuts Allergy Severe anaphylaxis Uncoded 02/24/25 19:59 NSAIDS/ASA Allergy Unknown unknown Uncoded 02/24/25 19:59 Review of Systems 2 Review of Systems: Constitutional : No Weight loss, No Fever, No Chills, No Night Sweats, No Fatigue, No Malaise ENT/Mouth : No Hearing loss, No Ear Pain, No Nasal Congestion, No Sinus Pain, No Hoarseness, No sore throat, No Rhinorrhea, No Swallowing Difficulty Eyes: No Eye Pain, No Swelling, No Redness, No Foreign Body, No Discharge, No Vision Changes Cardiovascular : No Chest Pain, No SOB, No Dyspnea on Exertion, No Orthopnea, No Edema, No Palpitations Respiratory : Denies calm, complaining of wheezing, feeling tight Gastrointestinal : No Nausea, No Vomiting, No Diarrhea, No Constipation, No abdominal Pain, No Hematochezia, No Melena Genitourinary : no irregular bleeding, No Dysuria, No Urinary Frequency, No Hematuria, No Urinary Incontinence, No Urgency, No Flank Pain, No Urinary Flow Changes, No Hesitancy Musculoskeletal : No joint pain, No Myalgias, No Joint Swelling Skin : No Skin Lesions, No rash Neuro : No Weakness, No Numbness, No Paresthesias, No Loss of Consciousness, No Dizziness, No Headache Psych : No Anxiety/Panic, No Depression, No SI/HI/AH/VH, No Social Issues, Heme/Lymph: No Bruising, No Bleeding,No Lymphadenopathy Endocrine : No Polyuria, No Polydipsia, No Temperature Intolerance [facility] Past Medical History Medical History Chronic lung disease Acute on chronic respiratory failure with hypoxia and hypercapnia Inhales drugs Heroin use Allergic asthma with status asthmaticus Moderate persistent asthma with exacerbation Opiate abuse, episodic Left against medical advice Lung problems from crack cocaine Chronic lung disease Asthma Pulmonary emboli Family History Family History Other Family history non-contributory Social History Social History Household Members: Significant Other Housing: House Do you presently have visiting nurse or other home services: No Alcohol intake: never Patient Tobacco Use Status: Former Tobacco user Tobacco use type: Cigarette Cigarettes Per Day: 1 e-Cigarette/Vaping Use: Never Used Second Hand Smoke Exposure: No Substance Use Type: Heroin Advance Directives: No Advance Directives Information Provided: No Advance Directives Date on File: 06/22/24 service: No Current occupational status: unemployed Cognitive needs: No Hearing needs: No Vision needs: No Physical Exam 2 Exam: Exam: Appearance: Alert. Oriented X3. No acute distress. Eyes: Pupils equal, round and reactive to light. ENT: Pharynx normal. Neck: Normal inspection. Neck supple. No lymph nodes noted. No crepitus CVS: Normal heart rate and rhythm. Pulses normal. Normal S1 and S2 Respiratory: No respiratory distress. bilateral mild wheezing, fairly good air movement, oxygen saturation 89% without oxygen resting, walking is 87% Abdomen: Soft and nontender. No rigidity. No distention. Skin: Skin warm and dry. Normal skin color. Normal skin turgor. Extremities: No lower extremity edema. No Lacerations. No Rash Neuro: Oriented X 3. No motor deficit. No sensory deficit. Moving all extremities. No slurred speech. CN 2 through 12 grossly intact Psych: calm, cooperative, normal affect Vital Signs: Vital Signs: Last Vital Signs Temp 98.0 F 02/24/25 19:58 Pulse 110 H 02/24/25 20:05 Resp 21 H 02/24/25 20:05 BP 134/80 02/24/25 19:58 Pulse Ox 95 02/24/25 19:58 O2 Del Method Nasal Cannula 02/24/25 19:58 O2 Flow Rate 4 02/24/25 19:58 Oxygen Flow Rate 4 02/24/25 19:55 BMI result Body Mass Index 18.4 Medications Administered Discontinued Medications Generic Name Dose Route Start Last Admin Trade Name Freq PRN Reason Stop Dose Admin Albuterol Sulfate 7.5 mg/ 10 mg 02/24/25 20:02 02/24/25 20:03 Albuterol Sulfate 2.5 mg INHALE 02/24/25 20:03 10 mg ONCE ONE Administration Medical Decision Making Medical Decision Making [facility] Narrative: My interpretation of EKG: Sinus tachycardia, heart rate 111, no ST segment depression or elevation, no T-wave inversion, QTC 435 My interpretation of labs: No significant abnormality patient's hematology and chemistry Chest x-ray does not show any acute abnormality Patient improved with the above-mentioned medications. However, oxygen does drop when he walks. Patient will need oxygen I discussed the patient with Dr. Dobbins, patient being admitted Differential Diagnosis Differential Diagnoses: The differential diagnosis associated with the presentation includes (Asthma, chronic lung disease, viral illness) Admission/Observation Consideration of admission/observation: Escalation of care including admission/observation considered Consult Healthcare Provider Management of the patient was discussed with: Hospitalist Lab Data [facility] Lab Attestation statement: I reviewed the patient's lab results. 02/24/25 20:07 02/24/25 20:07 Labs: Lab Results 02/24/25 Range/Units 20:07 WBC 11.0 H (4.8-10.8) X10*3/uL RBC 4.46 L (4.60-5.80) X10*6/uL Hgb 14.1 (14.0-18.0) g/dl Hct 42.3 (42.0-52.0) % MCV 94.8 (80.0-98.0) fL MCH 31.6 (27.0-33.0) pg MCHC 33.3 (31.0-36.0) g/dl RDW 12.7 (11.0-16.0) % Plt Count 237 (160-400) X10*3/uL MPV 9.5 (9.4-12.4) fL Immature Gran % (Auto) 0.5 H (0.0-0.4) % Neut % (Auto) 65.2 (45-73) % Lymph % (Auto) 20.7 (20-40) % Ida % (Auto) 7.2 (2-11) % Eos % (Auto) 5.7 H (0-4) % Baso % (Auto) 0.7 (0-2) % Lymph # (Auto) 2.3 (1.2-4.9) X10*3/uL Ida # (Auto) 0.8 (0.1-1.2) X10*3/uL Eos # (Auto) 0.6 H (0.0-0.4) X10*3/uL Baso # (Auto) 0.1 (0.0-0.2) X10*3/uL Abs Immat Gran (auto) 0.05 H (0.00-0.03) X10*3/uL Absolute Neuts (auto) 7.2 (2.0-8.3) x10*3/uL Absolute Nucleated RBC 0.000 (0.0-0.012) X10*3/uL Nucleated RBC % (auto) 0.0 (0.0-0.2) /100WBC Sodium 139 (135-145) mmol/L Potassium 4.1 (3.3-5.1) mmol/L Chloride 105 (96-108) mmol/L Carbon Dioxide 25 (22-29) mmol/L Anion Gap 13 (12-20) BUN 11 (9-16) mg/dL Creatinine 0.79 (0.5-1.4) mg/dL Estim Creat Clear Calc 98.1 Estimated GFR > 60 Random Glucose 125 H (60-115) mg/dL Calcium 9.3 (8.4-10.2) mg/dL Magnesium 2.7 H (1.6-2.6) mg/dL Total Bilirubin 0.5 (0.0-1.0) mg/dL AST 18 (5-37) U/L ALT 18 (0-40) U/L Alkaline Phosphatase 73 (39-117) U/L Total Protein 6.8 (6.5-8.0) g/dL Albumin 4.4 (3.5-5.0) g/dL Independent Interpretation I performed an independent interpretation of an: EKG and Plain X-Ray Radiology Impression Discussion of test interpretation with radiology: I have reviewed the radiologist's reading. Radiologist Impression: Heart size is normal. No consolidation, significant pleural effusion or pneumothorax. Lungs are hyperinflated. No acute fracture. IMPRESSION: 1. No acute findings. Independent Historian Clinical information obtained from an independent historian. History obtained from or confirmed by: EMS Critical Care Time Critical Care Time Critical Care Time: Yes Total Critical Care Time: 50 Attestation: I have personally provided critical care time. Time includes review of lab data, radiology results, discussion with consultants, and monitoring for potential decompensation. Intervention performed as documented. Discharge Plan Discharge Clinical Impression: Asthma exacerbation Patient Disposition: Admitted As Inpatient Print Language: Upper Sorbian
--- NOTE | 2025-02-24 22:56 | PC.NURSE ---
pt ambulation trial: 86% room air, admitting provider at bedside.
[2025-02-24 23:29] LABS: Resp Syncy Virus RNA Qual PCR NEGATIVE (Negative); SARS COV2 PCR INHOUSE NEGATIVE (Negative)
[2025-02-25] VITALS (8 sets, daily range): BP systolic 127–137; BP diastolic 66–80; PULSE 82–105; RESP 14–20; TEMP 36.2–37.4; O2SAT 4–96; BMI 18.9
--- NOTE | 2025-02-25 00:02 | PM.IMHP ---
History of Present Illness Date of Service: 02/24/25 Attending physician on admission: Mando Dobbins Chief Complaint: SOB Patient is a 49-year-old male with a past medical history significant for opioid use disorder on methadone, history of PE on Eliquis, moderate persistent asthma with recent admission, who presented to the ED due to worsening shortness of breath. The patient has been on prednisone and was given a DuoNeb by EMS with some improvement. He denies any recent sick contacts. No fever, chills, nausea or vomiting. No abdominal pain, headache, runny nose, congestion or urinary symptoms. The patient denies any chest pain. He feels this is an asthma exacerbation and this does not feel similar to previous PE. He has been taking his Eliquis twice daily as prescribed. Review of Systems Constitutional: Constitutional: Denies body ache(s), Denies chills, Denies fatigue, Denies fever(s) and Denies headache(s) Eyes: Eyes: Denies change in vision ENT: Denies headache(s), Denies nasal congestion, Denies nasal discharge and Denies sore throat Cardiovascular: Cardiovascular: Denies chest pain, Denies rapid heart rate, Denies leg edema, Denies lightheadedness and Reports dyspnea Respiratory: Respiratory: Denies chest congestion, Denies cough, Reports dyspnea and Reports wheezing Gastrointestinal: Gastrointestinal: Denies abdominal pain, Denies diarrhea, Denies nausea and Denies vomiting Genitourinary: Genitourinary: Denies dysuria, Denies urinary frequency and Denies urinary urgency Musculoskeletal: Musculoskeletal: Denies back pain Integumentary/Breasts: Skin/Breast: Denies rash Neurologic: Denies confusion and Denies headache(s) Psychiatric: Psychiatric: Denies confusion Endocrine: Endocrine: Denies fatigue Hematologic/Lymphatic: Hematologic/Lymphatic: Denies easy bleeding Allergic/Immunologic: Allergic/Immunologic: Reports wheezing [facility] Medical History Chronic lung disease Acute on chronic respiratory failure with hypoxia and hypercapnia Inhales drugs Heroin use Allergic asthma with status asthmaticus Moderate persistent asthma with exacerbation Opiate abuse, episodic Left against medical advice Lung problems from crack cocaine Chronic lung disease Asthma Pulmonary emboli Functional capacity: independent ambulation Family History Other Family history non-contributory Social History Household Members: Significant Other Housing: House Do you presently have visiting nurse or other home services: No Alcohol intake: never Patient Tobacco Use Status: Former Tobacco user Tobacco use type: Cigarette Cigarettes Per Day: 1 e-Cigarette/Vaping Use: Never Used Second Hand Smoke Exposure: No Substance Use Type: Heroin Advance Directives: No Advance Directives Information Provided: No Advance Directives Date on File: 06/22/24 Nutrition Risks: No Nutritional Risk service: No Current occupational status: unemployed Cognitive needs: No Hearing needs: No Vision needs: No Meds Allergies Allergy/AdvReac Type Severity Reaction Status Date / Time walnut Allergy Severe SWELLING Verified 02/24/25 19:59 buprenorphine (From Suboxone) Allergy swelling Verified 02/24/25 19:59 in his hands and rash naloxone (From Suboxone) Allergy swelling Verified 02/24/25 19:59 in his hands and rash walnuts Allergy Severe anaphylaxis Uncoded 02/24/25 19:59 NSAIDS/ASA Allergy Unknown unknown Uncoded 02/24/25 19:59 Home Medications ?Medication ?Instructions ?Recorded ?Confirmed ?Last Taken ?Type methadone 10 mg/mL oral 58 mg PO DAILY 04/18/23 02/11/25 02/10/25 History concentrate (Methadose) fluticasone fur. 200 mcg-umeclid 1 ea inhalation DAILY 09/20/24 02/10/25 09/19/24 History 62.5 mcg-vilant 25 mcg inhalat.powder (Trelegy Ellipta) fluticasone furoate 200 1 ea inhalation DAILY 09/20/24 02/10/25 Unknown History mcg-vilanterol 25 mcg/dose inhalation powder (Breo Ellipta) Physical Exam Vital Signs and Narrative: Vital Signs: Last Vital Signs Temp 98.0 F 02/24/25 19:58 Pulse 110 H 02/24/25 20:05 Resp 21 H 02/24/25 20:05 BP 134/80 02/24/25 19:58 Pulse Ox 95 02/24/25 19:58 O2 Del Method Nasal Cannula 02/24/25 19:58 O2 Flow Rate 4 02/24/25 19:58 Oxygen Flow Rate 4 02/24/25 19:55 BMI result Body Mass Index 18.4 General: AOx3, no acute distress Resp: Mild inspiratory and expiratory wheezing, rhonchorous, no crackles CVS: tachycardic, regular rhythm GI: +BS, NT, no distention Skin: Warm, dry Neuro: Cranial nerves II-XII grossly intact bilaterally. Motor grossly intact bilaterally Extremities: No edema Psych: Appropriate affect Const: General: No confusion Orientation/consciousness: No confusion Neuro: General: No confusion Results Labs 02/24/25 20:07 02/24/25 20:07 Labs: Laboratory Results - last 24 hr 02/24/25 02/24/25 20:07 22:29 MCV 94.8 MCH 31.6 MCHC 33.3 RDW 12.7 Plt Count 237 MPV 9.5 Immature Gran % (Auto) 0.5 H Neut % (Auto) 65.2 Lymph % (Auto) 20.7 [place] % (Auto) 7.2 Eos % (Auto) 5.7 H Baso % (Auto) 0.7 Lymph # (Auto) 2.3 [place] # (Auto) 0.8 Eos # (Auto) 0.6 H Baso # (Auto) 0.1 Abs Immat Gran (auto) 0.05 H Absolute Neuts (auto) 7.2 Absolute Nucleated RBC 0.000 Nucleated RBC % (auto) 0.0 Anion Gap 13 Estim Creat Clear Calc 98.1 Estimated GFR > 60 Random Glucose 125 H Calcium 9.3 Magnesium 2.7 H Total Bilirubin 0.5 AST 18 ALT 18 Alkaline Phosphatase 73 Total Protein 6.8 Albumin 4.4 Influenza Type A (PCR) NEGATIVE Influenza Type B (PCR) NEGATIVE RSV RNA Qual (PCR) NEGATIVE SARS-CoV-2 RNA (RT-PCR) NEGATIVE Assessment and Plan (1) Acute hypoxic respiratory failure: Status: Acute (2) Acute asthma exacerbation: Qualifiers: Asthma persistence: persistent Asthma severity: unspecified severity Qualified Code(s): J45.901 - Unspecified asthma with (acute) exacerbation Status: Acute Plan Patient is a 49-year-old male with a past medical history significant for opioid use disorder on methadone, history of PE on Eliquis, moderate persistent asthma with recent admission, who presented to the ED due to worsening shortness of breath. acute hypoxic respiratory failure in the setting of acute asthma exacerbation - oxygen drops to 89% without oxygen supplementation, 87% with ambulation - Tachycardia due to albuterol use - titrate oxygen as needed - Solu-Medrol - duo nebs - check D-dimer - RPP - monitor CBC and BMP opioid use disorder - we will need methadone dose confirmed in a.m. - denies any recent drug use including cocaine history of PE - Eliquis med rec pending full code VTE prophylaxis: [facility] patient with acute hypoxic respiratory failure in the setting of acute asthma exacerbation, requiring admission for at least 2 midnight stay for IV steroids and breathing treatments. Quality Stroke Does the patient have a stroke diagnosis?: No VTE Prior VTE?: No VTE Risk Level:: Medical - moderate - high VTE Device Contraindication: Treatment Not Indicated VTE Drug Contraindication: N/A - Med Ordered
[2025-02-25 00:11] LABS: D Dimer High Sensitivity 180 NG/ML
[2025-02-25 05:46] LABS: MANUAL DIFF FLAG NO
[2025-02-25 05:50] LABS: Hematocrit 42.4 % (42.0-52.0); Hemoglobin 13.8 g/dl (14.0-18.0); Imm Gran Abs Auto 0.02 X10*3/uL (0.00-0.03); Imm Gran Pct Auto 0.3 % (0.0-0.4); Lymphocytes Absolute Auto 0.6 X10*3/uL (1.2-4.9); Mean Corpuscular HGB Conc 32.5 g/dl (31.0-36.0); Mean Corpuscular Hemoglobin 31.0 pg (27.0-33.0); Mean Corpuscular Volume 95.3 fL (80.0-98.0); NRBC Abs Auto 0.000 X10*3/uL (0.0-0.012); NRBC Pct Auto 0.0 /100WBC (0.0-0.2); Platelet Count 238 X10*3/uL (160-400); Red Blood Count 4.45 X10*6/uL (4.60-5.80); White Blood Count 5.9 X10*3/uL (4.8-10.8)
[2025-02-25 06:07] LABS: Anion Gap 18 (12-20); Blood Urea Nitrogen 14 mg/dL (9-16); Calcium 9.4 mg/dL (8.4-10.2); Carbon Dioxide 24 mmol/L (22-29); Chloride 101 mmol/L (96-108); Creatinine Clr Calc Pharmacy 95.8; Estimated Glomerular Filt Rate > 60; Potassium 4.0 mmol/L (3.3-5.1); Sodium 139 mmol/L (135-145)
[2025-02-25] MEDS: 0.9 % Sodium Chloride Flush 3 ML SYRINGE IVFLUSH ×2 (07:56→20:28)
--- NOTE | 2025-02-25 08:44 | HE.PHANOTE ---
METHADONE Pt last received 63mg on 02/19/25 @ 1148 from [facility] per ABDIEL Cox at facility. Pt received six take home bottles, all 63 mg and he last took 63 mg yesterday (02/24/25).
--- NOTE | 2025-02-25 08:56 | PHA.MEDREC ---
Pharmacy Consult ? Medication Reconciliation Pharmacy has completed the medication reconciliation. Spoke with patient to confirm meds.
[2025-02-25] MEDS: guaiFENesin 200 MG/10 ML 10 ML LIQUID PO ×2 (09:05→14:52)
[2025-02-25] MEDS: methADONE HCl 20 MG/2 ML ORAL.CONC 63 MG PO (11:25)
--- NOTE | 2025-02-25 12:34 | MHC.CM.PN ---
pt lives alone [facility] 02 dc plan home
--- NOTE | 2025-02-25 12:40 | MHC.CLN ---
NUTRITION DIET RX: REGULAR. ADDING ENSURE TID PER CONVERSATION WIH PATIENT. SUPPLMENET PROVIDES 1050 KCALS, 60 G PROTEIN. PATIENT IS UNDERWEIGHT WITH BMI 18.9 AND WEIGHT IS 79% OF IBW. REPORTS GOOD APPETITE. FOLLOW FOR PO INTAKE. SEE CLINICAL NUTRITION ASSESSMENT.
--- NOTE | 2025-02-25 14:58 | PM.EVENT ---
Event Note Date of Service: 02/25/25 Event Note: Patient seen and examined at bedside this morning, patient admitted for asthma exacerbation, patient at this time states that his breathing has improved, patient with rales and coughing, incentive spirometer and flutter valve ordered. We will continue to monitor and adjust medications accordingly. Time Spent With Patient Time: Total time managing care of this patient today ____ minutes.
[2025-02-25] MEDS: Albuterol/Iprat 2.5/0.5MG 3 ML AMPUL.NEB INHALE ×2 (15:16→19:39)
[2025-02-26] VITALS (8 sets, daily range): BP systolic 123–146; BP diastolic 59–76; PULSE 70–103; RESP 14–20; TEMP 36.1–36.6; O2SAT 91–95
[2025-02-26] MEDS: guaiFENesin 200 MG/10 ML 10 ML LIQUID PO ×3 (02:19→16:45)
[2025-02-26 06:17] LABS: Hematocrit 39.2 % (42.0-52.0); Hemoglobin 12.7 g/dl (14.0-18.0); Imm Gran Abs Auto 0.29 X10*3/uL (0.00-0.03); Imm Gran Pct Auto 1.1 % (0.0-0.4); Lymphocytes Absolute Auto 0.9 X10*3/uL (1.2-4.9); MANUAL DIFF FLAG SCAN; Mean Corpuscular HGB Conc 32.4 g/dl (31.0-36.0); Mean Corpuscular Hemoglobin 31.1 pg (27.0-33.0); Mean Corpuscular Volume 96.1 fL (80.0-98.0); NRBC Abs Auto 0.000 X10*3/uL (0.0-0.012); NRBC Pct Auto 0.0 /100WBC (0.0-0.2); Platelet Count 230 X10*3/uL (160-400); Red Blood Count 4.08 X10*6/uL (4.60-5.80); SCAN SMEAR FLAG 1; White Blood Count 27.1 X10*3/uL (4.8-10.8)
[2025-02-26 06:33] LABS: Anion Gap 14 (12-20); Blood Urea Nitrogen 24 mg/dL (9-16); Calcium 9.7 mg/dL (8.4-10.2); Carbon Dioxide 26 mmol/L (22-29); Chloride 102 mmol/L (96-108); Creatinine Clr Calc Pharmacy 89.4; Estimated Glomerular Filt Rate > 60; Potassium 4.8 mmol/L (3.3-5.1); Sodium 137 mmol/L (135-145)
[2025-02-26] MEDS: Albuterol/Iprat 2.5/0.5MG 3 ML AMPUL.NEB INHALE ×4 (07:41→19:50)
[2025-02-26] MEDS: 0.9 % Sodium Chloride Flush 3 ML SYRINGE IVFLUSH ×3 (08:30→20:48)
[2025-02-26] MEDS: Fluticasone/Umeclidinium/Vilanterol 200/62.5/25 BLST.W.DEV 1 PUFF INHALE (08:36)
[2025-02-26] MEDS: methADONE HCl 20 MG/2 ML ORAL.CONC 63 MG PO (08:42)
--- NOTE | 2025-02-26 10:29 | HO.PM.IMPN ---
Subjective Subjective Date of Service: 02/26/25 Interval History: Patient seen and examined at bedside this morning, patient states that his breathing has improved, WBC elevated to 27.1, recently started on high-dose steroids. Review of Systems Review of Systems: Yes all other systems are reviewed and are negative Physical Exam Exam: Exam: General: AxOx3, mild acute distress Head: AT/NC ENT: Moist mucous membranes Neck: supple CVS; RRR, S1 S2 normal Lungs: Bilateral rhonchi Abd: Soft non tender, non distended Ext: No edema and no calf tenderness MSK: moving all 4 limbs Skin: No cyanosis or edema Psych: Cooperative with exam Neurology: no focal deficit Vital Signs: Vital Signs: Last Vital Signs Temp 97.6 F 02/26/25 07:39 Pulse 76 02/26/25 07:44 Resp 19 02/26/25 07:44 BP 146/69 H 02/26/25 07:39 Pulse Ox 95 02/26/25 07:39 O2 Del Method Nasal Cannula 02/26/25 07:39 O2 Flow Rate 4 02/26/25 07:39 Oxygen Flow Rate 4 02/24/25 19:55 BMI result Body Mass Index 18.9 Objective Data Active Medications Acetaminophen (Acetaminophen 325 Mg Tablet) 975 mg PO Q6H PRN PRN Reason: Pain, Mild 1-3,fever,headache Last Admin: 02/26/25 09:46 Dose: 975 mg Documented By: MIGUEL Albuterol/Ipratropium (Albuterol/Iprat 2.5/0.5mg 3 Ml Ampul.Neb) 3 ml INHALE Q4H PRN PRN Reason: Shortness of Breath/Wheezing Last Admin: 02/25/25 15:16 Dose: 3 ml Documented By: MEDARDO Albuterol/Ipratropium (Albuterol/Iprat 2.5/0.5mg 3 Ml Ampul.Neb) 3 ml INHALE RQ4H WHILE AWAKE [facility] Last Admin: 02/26/25 07:41 Dose: 3 ml Documented By: CHICO Apixaban (Apixaban 5 Mg Tablet) 5 mg PO BID [facility] Last Admin: 02/26/25 08:45 Dose: 5 mg Documented By: IVORY Calcium Carbonate (Calcium Carbonate 750 Mg Tab.Chew) 750 mg PO Q4H PRN PRN Reason: Heartburn Doxycycline Monohydrate (Doxycycline Monohydrate 100 Mg Capsule) 100 mg PO Q12H [facility] Stop: 03/05/25 08:59 Last Admin: 02/26/25 09:46 Dose: 100 mg Documented By: MIGUEL Fluticasone/Umeclidinium/Vilanterol (Fluticasone/Umeclidinium/Vilanterol 200/62.08/31 Blst.W.Dev) 1 puff INHALE RDAILY [facility] Last Admin: 02/26/25 08:36 Dose: 1 puff Documented By: CHIOC Guaifenesin (Guaifenesin 200 Mg/10 Ml 10 Ml Liquid) 10 ml PO Q6H PRN PRN Reason: Cough Last Admin: 02/26/25 08:45 Dose: 10 ml Documented By: IVORY Magnesium Hydroxide (Milk Of Magnesia 30 Ml Oral.Susp) 30 ml PO DAILY PRN PRN Reason: Constipation Melatonin (Melatonin 3 Mg Tablet) 6 mg PO BEDTIME PRN PRN Reason: Insomnia Methadone HCl (Methadone Hcl 20 Mg/2 Ml Oral.Conc) 63 mg PO DAILY [facility] Last Admin: 02/26/25 08:42 Dose: 63 mg Documented By: IVORY Co-signed By: SHEREE Methylprednisolone Sodium Succinate (Methylprednisolone Sod Succ 125 Mg/2 Ml Vial) 62.5 mg IVPUSH BID [facility] Last Admin: 02/26/25 08:45 Dose: 62.5 mg Documented By: IVORY Montelukast Sodium (Montelukast Sodium 10 Mg Tablet) 10 mg PO BEDTIME [facility] Last Admin: 02/25/25 20:26 Dose: 10 mg Documented By: CATHERINE Ondansetron HCl (Ondansetron Hcl 4 Mg/2 Ml Vial) 4 mg IVPUSH Q8H PRN PRN Reason: Nausea and Vomiting Oxycodone HCl (Oxycodone Hcl Immed Release 5 Mg Tablet) 5 mg PO Q6H PRN PRN Reason: Pain, Severe (Pain Scale 7-10) Sodium Chloride (0.9 % Sodium Chloride Flush 3 Ml Syringe) 3 ml IVFLUSH QSHIFT [facility] Last Admin: 02/26/25 08:30 Dose: 3 ml Documented By: MIGUEL Tramadol HCl (Tramadol Hcl 50 Mg Tablet) 50 mg PO Q6H PRN PRN Reason: Pain, Moderate(Pain Scale 4-6) Labs 02/26/25 05:48 02/26/25 05:48 Labs: Laboratory Results - last 24 hr 02/26/25 05:48 MCV 96.1 MCH 31.1 MCHC 32.4 RDW 13.2 Plt Count 230 MPV 10.1 Immature Gran % (Auto) 1.1 H Neut % (Auto) 93.2 H Lymph % (Auto) 3.2 L Stark % (Auto) 2.4 Eos % (Auto) 0.0 Baso % (Auto) 0.1 Lymph # (Auto) 0.9 L Stark # (Auto) 0.6 Eos # (Auto) 0.0 Baso # (Auto) 0.0 Abs Immat Gran (auto) 0.29 H Absolute Neuts (auto) 25.3 H Absolute Nucleated RBC 0.000 Nucleated RBC % (auto) 0.0 Smear Tech's Comments VERIFIED Anion Gap 14 Estim Creat Clear Calc 89.4 Estimated GFR > 60 Random Glucose 162 H Calcium 9.7 Assessment and Plan (1) Acute hypoxic respiratory failure: Status: Acute (2) Asthma: Status: Acute (3) Polysubstance abuse: Status: Acute Plan 49-year-old male with a past medical history significant for opioid use disorder on methadone, history of PE on Eliquis, moderate persistent asthma with recent admission, who presented to the ED due to worsening shortness of breath. acute hypoxic respiratory failure in the setting of acute asthma exacerbation, improving - labs and imaging reviewed - continue supplemental oxygen and titrate for SpO2 greater than 88% - Continue Solu-Medrol and duo nebs - Initiate doxycyline as patient on methadone and azithro may cause QT prolongation opioid use disorder - continue methadone - denies any recent drug use including cocaine history of PE - Continue Eliquis med rec pending full code VTE prophylaxis: Eliquis Total time managing care of this patient today: 35 minutes. Quality Stroke Does the patient have a stroke diagnosis?: No VTE Prior VTE?: No VTE Risk Level:: Medical - moderate - high VTE Device Contraindication: Treatment Not Indicated VTE Drug Contraindication: N/A - Med Ordered
[2025-02-26] MEDS: oxyCODONE HCl Immed Release 5 MG TABLET PO (20:47)
[2025-02-27] MEDS: guaiFENesin 200 MG/10 ML 10 ML LIQUID PO (01:08)
[2025-02-27] MEDS: Albuterol/Iprat 2.5/0.5MG 3 ML AMPUL.NEB INHALE ×3 (02:22→11:20)
[2025-02-27 02:29] VITALS: PULSE 90; RESP 20; O2SAT 93
[2025-02-27 03:40] VITALS: BP 117/66; PULSE 77; RESP 18; TEMP 37.3; O2SAT 94
[2025-02-27 07:44] VITALS: BP 118/72; PULSE 78; RESP 16; TEMP 36.4; O2SAT 94
[2025-02-27] MEDS: Fluticasone/Umeclidinium/Vilanterol 200/62.5/25 BLST.W.DEV 1 PUFF INHALE (07:49)
[2025-02-27 07:51] VITALS: PULSE 78; RESP 16; O2SAT 94
[2025-02-27] MEDS: methADONE HCl 20 MG/2 ML ORAL.CONC 63 MG PO (08:20)
[2025-02-27] MEDS: 0.9 % Sodium Chloride Flush 3 ML SYRINGE IVFLUSH (08:24)
[2025-02-27] MEDS: guaiFENesin LA 600 MG TAB.ER.12H PO (08:29)
[2025-02-27 08:54] LABS: Hematocrit 38.8 % (42.0-52.0); Hemoglobin 12.9 g/dl (14.0-18.0); Mean Corpuscular HGB Conc 33.2 g/dl (31.0-36.0); Mean Corpuscular Hemoglobin 31.7 pg (27.0-33.0); Mean Corpuscular Volume 95.3 fL (80.0-98.0); NRBC Abs Auto 0.000 X10*3/uL (0.0-0.012); NRBC Pct Auto 0.0 /100WBC (0.0-0.2); Platelet Count 231 X10*3/uL (160-400); Red Blood Count 4.07 X10*6/uL (4.60-5.80); White Blood Count 21.6 X10*3/uL (4.8-10.8)
--- NOTE | 2025-02-27 09:13 | MHC.CLN ---
F/U DIET RX: REGULAR. ENSURE TID PER PATIENT PREFERENCE. SUPPLEMENT PROVIDES 1050 KCALS, 60 G PROTEIN. PATIENT IS UNDERWEIGHT WITH BMI 18.9 AND WEIGHT IS 79% OF IBW. GOOD PO INTAKE, 50-100%. CONTINUE CURRENT DIET AND SUPPLEMENT.
[2025-02-27 11:20] VITALS: PULSE 77; RESP 16; O2SAT 93
--- NOTE | 2025-02-27 11:21 | PC.RT ---
Pt given education on incentive spirometer and flutter valve. Pt able to self perform well.
--- NOTE | 2025-02-27 11:36 | PM.DS ---
DS: Providers Provider Date of Service: 02/27/25 Date of admission: 02/24/25 22:47 Date of discharge: 02/27/25 Primary care physician: None Physician Attending physician on discharge: Irineo Bryant Discharging clinician: Irineo Bryant DS: Diagnosis Discharge Diagnosis (1) Acute hypoxic respiratory failure: Status: Acute (2) Asthma: Status: Acute (3) Polysubstance abuse: Status: Acute DS: Summary Hospital Course Hospital Course: 49-year-old male with a past medical history significant for opioid use disorder on methadone, history of PE on Eliquis, moderate persistent asthma with recent admission, who presented to the ED due to worsening shortness of breath. Patient treated with IV steroids and DuoNebs, with improvement of symptoms. Patient states that he is feeling well, back to baseline. Acute on chronic hypoxic respiratory failure in the setting of acute asthma exacerbation Moderate persistent asthma Leukocytosis, improving, likely reactive in the setting of high dose steroids - labs and imaging reviewed - continue supplemental oxygen and titrate for SpO2 greater than 88% - we will DC with Medrol Dosepak, continue with nebulizing treatments - continue doxycycline for 5 more days -follow up with primary care provider as well as pulmonology as outpatient. opioid use disorder - continue methadone - denies any recent drug use including cocaine history of PE - Continue Eliquis All new and continued medications were discussed in depth with the patient, and new prescriptions were given directly to patient and/or verification of the prescriptions were sent to patient's preferred pharmacy directly. All side effects were discussed. Follow-up instructions were given. Patient voiced understanding. Patient was given the opportunity ask questions and express concerns, all of which were answered to their satisfaction. Patient was instructed to follow-up with his PCP within 3 to 10 days of discharge and head to the nearest emergency room or call 911 if symptoms worsen or new symptoms develop. This is a summary of the patient's stay; for more complete details please see chart. More than 35 minutes was spent with patient regarding workup, diagnosis and follow-up. Time Attestation Discharge Coordination Time (in mins): 35 minutes Quality: Safe Use of Opioids Does Pt have an Active Cancer Diagnosis on the Problem List?: No Quality: Stroke Does the patient have a stroke diagnosis?: No Physical Exam Exam: Exam: General: AxOx3, No acute distress on supplemental oxygen Head: AT/NC ENT: Moist mucous membranes Neck: supple CVS; RRR, S1 S2 normal Lungs: coarse bilateral breath sounds Abd: Soft non tender, non distended Ext: No edema and no calf tenderness MSK: moving all 4 limbs Skin: No cyanosis or edema Psych: Cooperative with exam Neurology: no focal deficit Vital Signs: Vital Signs: Last Vital Signs Temp 97.6 F 02/27/25 07:44 Pulse 77 02/27/25 11:20 Resp 16 02/27/25 11:20 BP 118/72 02/27/25 07:44 Pulse Ox 94 02/27/25 07:44 O2 Del Method Nasal Cannula 02/27/25 07:44 O2 Flow Rate 4 02/27/25 07:44 Oxygen Flow Rate 4 02/24/25 19:55 BMI result Body Mass Index 18.9 DS: Data Data Completed and Pending Completed studies during hospitalization [Text1]: Procedures Assistance with Respiratory Ventilation, Less than 24 Consecutive Hours, Continuous Positive Airway Pressure (09/14/23) Labs on day of discharge: Laboratory Results - last 24 hr 02/27/25 08:37 WBC 21.6 H RBC 4.07 L Hgb 12.9 L Hct 38.8 L MCV 95.3 MCH 31.7 MCHC 33.2 RDW 13.4 Plt Count 231 MPV 9.9 Absolute Nucleated RBC 0.000 Nucleated RBC % (auto) 0.0 Discharge Plan Discharge Anticipated Discharge Date/Time: 02/27/25 14:29 Patient Disposition: Home, Self-Care Discharge Diagnosis: Acute on chronic hypoxic respiratory failure asthma exacerbation Referrals: Mariela Costa RN [Emergency Nurse, Medical] - 1 Week Riley Borjas MD [Physician, Pulmonology] - 1 Week Physician,None [Primary Care Provider, Medical] - 1 Week Discharge Medications: New benzonatate 100 mg Capsule 100 mg PO BID-TID PRN (Reason: Cough) Qty: 20 0RF doxycycline monohydrate 100 mg Capsule 100 mg PO Q12H Qty: 10 0RF guaifenesin 100 mg/5 mL Liquid 200 mg PO .q8 PRN (Reason: Cough) Qty: 473 0RF methylprednisolone [Medrol (Enmanuel)] 4 mg tablets,dose pack 4 mg PO DAILY Qty: 21 0RF Continued (DME) nebulizers Misc See Rx Instructions .Route Qty: 1 0RF Rx Instructions: Use every 4 hours as needed for SOB, wheezing albuterol sulfate 90 mcg/actuation HFA aerosol inhaler 2 puff inhalation Q4-6H PRN (Reason: shortness of breath or wheezing) Qty: 3 4RF albuterol sulfate 2.5 mg /3 mL (0.083 %) solution for nebulization 2.5 mg inhalation Q4-6H PRN (Reason: for wheezing) Qty: 150 3RF methadone [Methadose] 10 mg/mL Concentrate 63 mg PO DAILY Rx Instructions: Verified dose on 02/19/25 with [facility] [phone] Trelegy Ellipta 200-62.5-25 mcg blister with device 1 ea inhalation DAILY montelukast 10 mg Tablet 10 mg PO BEDTIME Qty: 90 0RF Eliquis 5 mg tablet 5 mg PO BID 90 Days Qty: 180 4RF Discontinued prednisone 10 mg tablet 10 mg PO DIRECTED Qty: 70 0RF Rx Instructions: Take 4 tabs daily for 7 days, then go down by 1 tab every 7 days amoxicillin-pot clavulanate 875-125 mg tablet 1 tab PO BID Qty: 20 0RF Discharge Orders: Discharge Order (Routine); Ordered 02/27/25 Ordered By: Irineo Bryant Activity on Discharge: As tolerated Stand Alone Forms: Patient Portal Discharge page Print Language: [place] Care Plan Goals: Continue medrol dose enmanuel and doxy follow up with pulmonology as outpatient continue nebulizing treatments Health Concerns: asthma exacerbation, continue with steroids Plan of Treatment: medrol dose enmanuel and doxycicline for exacerbation Predinsone 10mg on hold right now in the setting of medrol dose enmanuel, follow up with pulmonology Assessment: 49-year-old male with a past medical history significant for opioid use disorder on methadone, history of PE on Eliquis, moderate persistent asthma with recent admission, who presented to the ED due to worsening shortness of breath. Patient treated with IV steroids and DuoNebs, with improvement of symptoms. Patient Instructions: Asthma (DC), Moderate and Severe Persistent Asthma (DC)
[2025-02-27 12:05] VITALS: BP 142/78; PULSE 97; RESP 16; TEMP 36.8; O2SAT 92
--- NOTE | 2025-02-27 12:32 | MHC.CM.PN ---
Pt. has been medically cleared to DC, he will go home via [facility] shuttle, DCP is home, self care.
== END 2025-02-27 12:43 | disposition home or self-care (01) | DRG 141 ==
LOC: HO.ED 22:11 → HO.EDOVER 22:50 → HO.S3 02-25 01:28
PROVIDERS: Admitting Provider Physician Assistant; Emergency Provider Emergency Medicine; Visit Provider Student in an Organized Health Care Education/Training Program
DX: J45.41 Moderate persistent asthma with (acute) exacerbation (principal); J96.21 Acute and chronic respiratory failure with hypoxia; F11.20 Opioid dependence, uncomplicated; Z20.822 Contact with and (suspected) exposure to COVID-19; Z86.711 Personal history of pulmonary embolism; Z87.891 Personal history of nicotine dependence; Z79.01 Long term (current) use of anticoagulants; Z79.899 Other long term (current) drug therapy
CPT/HCPCS: 36415; 71045; 80048; 80053; 83735; 85025; 85027; 85379; 87637; 93005; 94640; 99285; J2919

== ENCOUNTER → 2025-02-24 20:04 | Outpatient (BNV) | payer OTHER, SELFPAY | PROVIDERS: Admitting Provider Physician Assistant; Emergency Provider Emergency Medicine; Visit Provider Internal Medicine | DX: R00.0 Tachycardia, unspecified (principal) | CPT/HCPCS: 93010 ==

== ENCOUNTER → 2025-02-24 20:15 | Outpatient (BNV) | payer OTHER, SELFPAY | PROVIDERS: Visit Provider Specialist | DX: R06.02 Shortness of breath (principal) | CPT/HCPCS: 71045 ==

== ENCOUNTER → 2025-02-24 22:47 | Outpatient (BNV) | payer OTHER, SELFPAY | PROVIDERS: Admitting Provider Physician Assistant; Emergency Provider Emergency Medicine; Visit Provider Student in an Organized Health Care Education/Training Program | DX: J96.01 Acute respiratory failure with hypoxia (principal); J45.909 Unspecified asthma, uncomplicated; F19.10 Other psychoactive substance abuse, uncomplicated; J45.901 Unspecified asthma with (acute) exacerbation | CPT/HCPCS: 99222; 99232; 99499 ==

== ENCOUNTER 2025-03-26 08:33 | Outpatient (REF) | payer OTHER, SELFPAY ==
--- NOTE | ~2025-03-26 | XR_ITS ---
EXAMINATION: XR HIP, LEFT CLINICAL INFORMATION: M25.559 - Pain in unspecified hip COMPARISON: 12/23/2024. TECHNIQUE: AP pelvis, and 2 views of the left hip. FINDINGS: Redemonstration of compression screw within the left femoral head, and lateral plate and screw in the left femoral proximal metaphysis, fixating an intertrochanteric hip fracture. The hardware is intact, well seated, without periprosthetic lucency or fracture. Fracture lines are very indistinct, indicating continued healing. There is stable anatomical alignment of the left hip. No evidence of AVN of the left femoral head. The pelvis is intact. There are mild degenerative changes in both hip joints. No bone lesions are present. There are no soft tissue abnormalities. XR/XR hip LT min 2V IMPRESSION: Fixated left intertrochanteric hip fracture without complication. Continued healing of the fracture margins. Anatomical alignment is maintained. Electronically signed by: Shiraz Mcclendon MD 03/26/2025 03:34 PM JORGE
--- OUTSIDE RECORDS SUMMARY | 2025-03-27 08:46 | XMS_ITS | Encounter Summary ---
Author Organization [employer] Address [address] [facility] 7t [place] [address] Care Team Providers Care Plant Clerk Name Role Phone Unavailable Primary Care Provider Unavailabl e Reason for Visit * Reason Comments Med Refill Encounter Details Date Type Department Care Team (Late st Contact Info) Description 11/11/2024 Refill [facility] ADULT DENTAL [address] [place], [place] [phone] Abelino López, DMD [address] [place] [address] Social History Tobacco Use Types Packs/Day Years [...]
--- OUTSIDE RECORDS SUMMARY | 2025-03-27 08:46 | XMS_ITS | Encounter Summary ---
Author Organization [employer] Address 75 [facility] 7t [place] [address] Care Team Providers Care Apparatus Repair Mechanic Name Role Phone Unavailable Primary Care Provider Unavailabl e Reason for Visit * Reason Comments Med Refill Encounter Details Date Type Department Care Team (Late st Contact Info) Description 02/13/2025 Refill [facility] ADULT DENTAL [address] [place] [address] Abelino López DMD [address] [place] [address] Social History Tobacco Use Types Packs/Day Years [...] Telephone Encounter - Abelino López DMD - 02/16/2025 8:02 AM EST Approving, but needs appt for additional refills. documented in this encounter Plan of Treatment Not on file documented as of this encounter Visit Diagnoses Not on filedocumented in this encounter
--- OUTSIDE RECORDS SUMMARY | 2025-03-27 08:46 | XMS_ITS | Encounter Summary ---
Author Organization [employer] Address [address] [facility] 7t [place] [address] Care Team Providers Care Cook Railroad Name Role Phone Unavailable Primary Care Provider Unavailabl e Reason for Visit * Reason Comments Med Refill Encounter Details Date Type Department Care Team (Late st Contact Info) Description 08/29/2024 Refill [facility] ADULT DENTAL [address] [place], [place] [phone] Abelino López DMD [address] [place] [address] Social History Tobacco Use Types Packs/Day Years [...]
--- OUTSIDE RECORDS SUMMARY | 2025-03-27 08:46 | XMS_ITS | Encounter Summary ---
Author Organization [employer] Address [address] [facility] 7t [place] [address] Care Team Providers Care Medical Office Assistant Name Role Phone Unavailable Primary Care Provider Unavailabl e Reason for Visit * Reason Comments Med Refill Encounter Details Date Type Department Care Team (Late st Contact Info) Description 05/30/2024 Refill [facility] ADULT DENT[facility] [address] [place], [place] [phone] Irineo Harris DDS [address] [place], [place] [phone] Social History Tobacco Use Types Packs/Day Years [...]
--- OUTSIDE RECORDS SUMMARY | 2025-03-27 08:46 | XMS_ITS | Encounter Summary ---
Author Organization [employer] Address 75 [facility] 7t [place] [address] Care Team Providers Care Chief Dispatcher Service Name Role Phone Unavailable Primary Care Provider Unavailabl e Reason for Visit * Reason Comments Med Refill Encounter Details Date Type Department Care Team (Late st Contact Info) Description 12/04/2024 Refill [facility] ADULT DENTAL [address] [place], [place] [phone] Lenora Fishman, DDS [address] [place], [place] [phone] Social History Tobacco Use Types Packs/Day Years [...]
--- OUTSIDE RECORDS SUMMARY | 2025-03-27 08:46 | XMS_ITS | Encounter Summary ---
Author Organization [employer] Address [address] [facility] 7t [place] [address] Care Team Providers Care Policyholder Information Clerk Name Role Phone Unavailable Primary Care Provider Unavailabl e Reason for Visit * Reason Comments Med Refill Encounter Details Date Type Department Care Team (Late st Contact Info) Description 05/30/2024 Refill [facility] ADULT DENTAL [address] [place], [place] [phone] Lenora Fishman DDS [address] [place], [place] [phone] Social History Tobacco Use Types Packs/Day Years [...]
--- OUTSIDE RECORDS SUMMARY | 2025-03-27 08:46 | XMS_ITS | Encounter Summary ---
Author Organization [employer] Address [address] [facility] 7t [place] [address] Care Team Providers Care Packaging Inspector Name Role Phone Unavailable Primary Care Provider Unavailabl e Reason for Visit * Reason Comments Med Refill Encounter Details Date Type Department Care Team (Late st Contact Info) Description 10/11/[address] [facility] ADULT DENTAL [address] [place], [place] [phone] Abelino López DMD [address] [place] [address] Social History Tobacco Use Types Packs/Day Years [...]
--- OUTSIDE RECORDS SUMMARY | 2025-03-27 08:46 | XMS_ITS | Encounter Summary ---
Author Organization [employer] Address [address] [facility] 7t [place] [address] Care Team Providers Care Helper Marble Finisher Name Role Phone Unavailable Primary Care Provider Unavailabl e Reason for Visit * Reason Comments Med Refill Encounter Details Date Type Department Care Team (Late st Contact Info) Description 09/13/2024 Refill [facility] ADULT DENTAL [address] [place], [place] [phone] Abelino López DMD [address] [place] [address] Social History Tobacco Use Types Packs/Day Years [...]
--- OUTSIDE RECORDS SUMMARY | 2025-03-27 08:46 | XMS_ITS | Clinical Summary ---
Author Organization [employer] Address [address] [facility] 7t [place] [address] Care Team Providers Care Adult High School Instructor Name Role Phone Unavailable Primary Care [...] Type Department Care Team Description 03/07/2025 Refill [facility] ADULT DENTAL [address] [place] [address] Abelino López DMD 02/13/2025 Refill [facility] ADULT DENTAL [address] [place] [address] Abelino López DMD 12/26/2024 Refill [facility] ADULT DENTAL [address] [place] [address] Abelino López DMD from Last 3 Months [...] Most Recently Relevant to Health Maintenance Insurance [facility]ENTAL-[facility] MEDICAID STAND ADULT
--- OUTSIDE RECORDS SUMMARY | 2025-03-27 08:46 | XMS_ITS | Encounter Summary ---
Author Organization [employer] Address [address] [facility] 7t [place] [address] Care Team Providers Care Skill Labor Name Role Phone Unavailable Primary Care Provider Unavailabl e Reason for Visit * Reason Comments Med Refill Encounter Details Date Type Department Care Team (Late st Contact Info) Description 06/29/[address] [facility] ADULT DENTAL [address] [place], [place] [phone] Lenora Fishman DDS [address] [place], [place] [phone] Social History Tobacco Use Types Packs/Day Years [...]
--- OUTSIDE RECORDS SUMMARY | 2025-03-27 08:46 | XMS_ITS | Encounter Summary ---
Author Organization [employer] Address [address] [facility] 7t [place] [address] Care Team Providers Care Purchase Analyst Name Role Phone Unavailable Primary Care Provider Unavailabl e Reason for Visit * Reason Comments Med Refill Encounter Details Date Type Department Care Team (Late st Contact Info) Description 12/26/2024 Refill [facility] ADULT DENTAL [address] [place] [address] Abelino López DMD [address] [place] [address] Social History Tobacco Use Types Packs/Day Years [...]
--- OUTSIDE RECORDS SUMMARY | 2025-03-27 08:46 | XMS_ITS | Encounter Summary ---
Author Organization [email or web address] Address [address] [facility] 7t [place] [address] Care Team Providers Care Coke Handling Supervisor Name Role Phone Unavailable Primary Care Provider Unavailabl e Reason for Visit * Reason Comments Med Refill Encounter Details Date Type Department Care Team (Late st Contact Info) Description 08/06/2024 Refill [facility] ADULT DENTAL [address] [place], [place] [phone] Lenora Fishman DDS [address] [place], [place] [phone] Social History Tobacco Use Types Packs/Day Years [...]
--- OUTSIDE RECORDS SUMMARY | 2025-03-27 08:46 | XMS_ITS | Encounter Summary ---
Author Organization [employer] Address [address] [facility] 7t [place] [address] Care Team Providers Care Cosmetic Sales Consultant Name Role Phone Unavailable Primary Care Provider Unavailabl e Reason for Visit * Reason Comments Med Refill Encounter Details Date Type Department Care Team (Late st Contact Info) Description 04/05/2024 Refill [facility] ADULT DENTAL [address] [place], [place] [phone] Lenora Fishman DDS [address] [place], [place] [phone] Social History Tobacco Use Types Packs/Day Years [...]
--- OUTSIDE RECORDS SUMMARY | 2025-03-27 08:46 | XMS_ITS | Encounter Summary ---
Author Organization [employer] Address [address] [facility] 7t [place] [address] Care Team Providers Care Ginger Farmer Name Role Phone Unavailable Primary Care Provider Unavailabl e Reason for Visit * Reason Comments Med Refill Encounter Details Date Type Department Care Team (Late st Contact Info) Description 03/07/[address] [facility] ADULT DENTAL [address] [place], [place] [phone] Abelino López, DMD [address] [place] [address] Social History Tobacco Use Types Packs/Day Years [...]
--- OUTSIDE RECORDS SUMMARY | 2025-03-27 08:46 | XMS_ITS | Encounter Summary ---
Author Organization [facility] [employer] Address [address] [facility] 7t [place] [address] Care Team Providers Care Hoop Maker Name Role Phone Unavailable Primary Care Provider Unavailabl e Reason for Visit * Reason Comments Med Refill Encounter Details Date Type Department Care Team (Late st Contact Info) Description 07/21/2024 Refill [facility] ADULT DENTAL [address] [place], [place] [phone] Lenora Fishman, DDS [address] [place], [place] [phone] Social History Tobacco Use Types Packs/Day Years [...]
--- OUTSIDE RECORDS SUMMARY | 2025-03-27 08:46 | XMS_ITS | Encounter Summary ---
Author Organization [employer] Address [address] [facility] 7t [place] [address] Care Team Providers Care Destination Specialist Name Role Phone Unavailable Primary Care Provider Unavailabl e Reason for Visit * Reason Comments Med Refill Encounter Details Date Type Department Care Team (Late st Contact Info) Description 08/06/2024 Refill [facility] ADULT DENTAL [address] [place], [place] [phone] Abelino López DMD [address] [place] [address] Social History Tobacco Use Types Packs/Day Years [...]
== END 2025-03-26 08:34 | disposition home or self-care (01) ==
LOC: HO.HOSX 08:33
PROVIDERS: Visit Provider Physician Assistant
DX: S72.142D Displaced intertrochanteric fracture of left femur, subsequent encounter for closed fracture with routine healing (principal); X58.XXXD Exposure to other specified factors, subsequent encounter
CPT/HCPCS: 73502; 99212

== ENCOUNTER 2025-03-26 15:20 | Outpatient (AMB) | payer OTHER, SELFPAY ==
--- NOTE | 2025-03-26 15:36 | MHC.OFFVIS ---
Intake Visit Reasons: OV - Left femur ORIF 11/02/24 Intake Note: Shiraz is a 49 year old male who presents today for a follow up of his left femur ORIF 11/02/24, [place], [place]. Patient reports he is still having pain and soreness. Patient hasn't has physical therapy due to being sick. Allergies walnut Allergy (Severe, Verified 03/26/25 15:37) SWELLING buprenorphine (From Suboxone) Allergy (Verified 03/26/25 15:37) swelling in his hands and rash naloxone (From Suboxone) Allergy (Verified 03/26/25 15:37) swelling in his hands and rash walnuts Allergy (Severe, Uncoded 02/24/25 19:59) anaphylaxis NSAIDS/ASA Allergy (Unknown, Uncoded 02/24/25 19:59) unknown HPI HPI OV - Left femur ORIF 11/02/24: Details: Patient is a 50-year-old male who presents to the office today for routine follow-up status post left femur ORIF performed on 11/02/2024 at [facility] [place]. Since his last appointment patient reports that he has had multiple medical problems resulting in hospitalization for asthma. He has been unable to participate with any physical therapy due to this. He reports some mild pain on the lateral aspect of the hip especially at night. Overall he is doing well. [facility] Medical History Chronic lung disease Acute on chronic respiratory failure with hypoxia and hypercapnia Inhales drugs Heroin use Allergic asthma with status asthmaticus Moderate persistent asthma with exacerbation Opiate abuse, episodic Left against medical advice Lung problems from crack cocaine Chronic lung disease Asthma Pulmonary emboli Family History Other Family history non-contributory Social History Household Members: Significant Other Caregiver staying overnight: No Housing: House Do you presently have visiting nurse or other home services: No Alcohol intake: never Patient Tobacco Use Status: Former Tobacco user Tobacco use type: Cigarette Cigarettes Per Day: 1 e-Cigarette/Vaping Use: Never Used Second Hand Smoke Exposure: No Substance Use Type: Heroin Advance Directives Date on File: 06/22/24 service: No Current occupational status: unemployed Cognitive needs: No Hearing needs: No Vision needs: No Review of Systems Const All systems reviewed & are unremarkable except as noted in HPI and below Physical Exam Const General: cooperative, healthy appearing and no acute distress Resp Effort & Inspection: normal respiratory effort and able to speak in complete sentences Extrem Other: Left hip able to perform straight leg raise with quad weakness. Good internal external rotation with mild pain. Able to dorsiflex and plantar flex. Sensation intact. NVI. Psych Appearance: grossly normal Mental Status: mental status grossly normal Attitude: cooperative Assessment & Plan Assessment & Plan (1) Femur fracture, left: Code(s): S72.92XA - Unspecified fracture of left femur, initial encounter for closed fracture Category: Medical Plan Patient is a 50-year-old male who presents to the office today for routine follow-up status post left femur ORIF performed on 11/02/2024 at [facility]. Since his last appointment patient reports that he has had multiple medical problems resulting in hospitalization for asthma. He has been unable to participate with any physical therapy due to this. He reports some mild pain on the lateral aspect of the hip especially at night. Overall he is doing well. Patient will resume back to normal activities as tolerated using pain as his guide. At this time the patient has been discharged from physical therapy due to cancellation and no-shows. I have recommended to work on strengthening of the glutes core and quad. Patient understands and accepts. He will follow up PRN, sooner if needed. X-rays of the left hip which were obtained while in the office today and were reviewed by me, Daysi Garcia PA-C, revealed intact orthopedic hardware with routine healing. Orders: Orders XR hip LT min 2V Today M25.559 - Pain in unspecified hip Coding Level of Care Code Add On Preventative Visit Only Diagnoses Femur fracture, left S72.92XA
--- OUTSIDE RECORDS SUMMARY | 2025-03-26 19:20 | XMS_ITS | Encounter Summary ---
Author Organization [employer] Address [address] [facility] [address] [place] [address] Care Team Providers Care Network Control Operator Name Role Phone Unavailable Primary Care Provider Unavailabl e Reason for Visit * Reason Comments Med Refill Encounter Details Date Type Department Care Team (Late st Contact Info) Description 10/11/2024 Refill [facility] ADULT DENTAL [address] [place], [place] [phone] Abelino López DMD [address] [place] [address] Social History Tobacco Use Types Packs/Day Years [...]
--- OUTSIDE RECORDS SUMMARY | 2025-03-26 19:20 | XMS_ITS | Encounter Summary ---
Author Organization [employer] Address [address] [facility] [address]t [place] [address] Care Team Providers Care Cigarette Tester Name Role Phone Unavailable Primary Care Provider Unavailabl e Reason for Visit * Reason Comments Med Refill Encounter Details Date Type Department Care Team (Late st Contact Info) Description 11/11/2024 Refill [facility] ADULT DENTAL [address] [place], [place] [phone] Abelino López, DMD [address] [place] [address] Social History Tobacco Use Types Packs/Day Years [...]
--- OUTSIDE RECORDS SUMMARY | 2025-03-26 19:20 | XMS_ITS | Encounter Summary ---
Author Organization [employer] Address [address] [facility] [address] [place] [address] Care Team Providers Care Teacher Name Role Phone Unavailable Primary Care Provider Unavailabl e Reason for Visit * Reason Comments Med Refill Encounter Details Date Type Department Care Team (Late st Contact Info) Description 03/07/2025 Refill [facility] ADULT DENTAL [address] [place], [place] [phone] Abelino López, DMD [address] [place] [address] Social History Tobacco Use Types Packs/Day Years [...] Telephone Encounter - Lenora Fishman DDS - 03/09/2025 8:03 AM EST Approving, but needs appt for additional refills. documented in this encounter Plan of Treatment Not on file documented as of this encounter Visit Diagnoses Not on filedocumented in this encounter
--- OUTSIDE RECORDS SUMMARY | 2025-03-26 19:20 | XMS_ITS | Encounter Summary ---
Author Organization [employer] Address [address] [facility] [address] [place] [address] Care Team Providers Care Sales And Marketing Engineer Name Role Phone Unavailable Primary Care Provider Unavailabl e Reason for Visit * Reason Comments Med Refill Encounter Details Date Type Department Care Team (Late st Contact Info) Description 05/30/2024 Refill [facility] ADULT DENTAL [address] [place], [place] [phone] Lenora Fishman DDS [address] [place], [place] [phone] Social History Tobacco Use Types Packs/Day Years [...]
--- OUTSIDE RECORDS SUMMARY | 2025-03-26 19:20 | XMS_ITS | Encounter Summary ---
Author Organization [employer] Address [address] [facility] [address] [place] [address] Care Team Providers Care Boom Pump Operator Name Role Phone Unavailable Primary Care Provider Unavailabl e Reason for Visit * Reason Comments Med Refill Encounter Details Date Type Department Care Team (Late st Contact Info) Description 12/04/2024 Refill [facility] ADULT DENTAL [address] [place], [place] [phone] Lenora Fishman, DDS [address] [place], [place] [phone] Social History Tobacco Use Types Packs/Day Years [...]
--- OUTSIDE RECORDS SUMMARY | 2025-03-26 19:20 | XMS_ITS | Encounter Summary ---
Author Organization [employer] Address [address] [facility] [address] [place] [address] Care Team Providers Care Contract Administrative Assistant Name Role Phone Unavailable Primary Care Provider Unavailabl e Reason for Visit * Reason Comments Med Refill Encounter Details Date Type Department Care Team (Late st Contact Info) Description 08/06/2024 Refill [facility] ADULT DENTAL [address] [place], [place] [phone] Lenora Fishman DDS [address] [place], [place] [phone] Social History Tobacco Use Types Packs/Day Years [...]
--- OUTSIDE RECORDS SUMMARY | 2025-03-26 19:20 | XMS_ITS | Encounter Summary ---
Author Organization [employer] Address [address] [facility] [address] [place] [address] Care Team Providers Care Surveying Teacher Name Role Phone Unavailable Primary Care Provider Unavailabl e Reason for Visit * Reason Comments Med Refill Encounter Details Date Type Department Care Team (Late st Contact Info) Description 12/26/2024 Refill [facility] ADULT DENTAL [address] [place], [place] [phone] Abelino López DMD [address] [place] [address] Social History Tobacco Use Types Packs/Day Years [...]
--- OUTSIDE RECORDS SUMMARY | 2025-03-26 19:20 | XMS_ITS | Encounter Summary ---
Author Organization [employer] Address [address] [facility] [address] [place] [address] Care Team Providers Care Power Station Operator Name Role Phone Unavailable Primary Care Provider Unavailabl e Reason for Visit * Reason Comments Med Refill Encounter Details Date Type Department Care Team (Late st Contact Info) Description 09/13/2024 Refill [facility] ADULT DENTAL [address] [place], [place] [phone] Abelino López DMD [address] [place] [address] Social History Tobacco Use Types Packs/Day Years [...]
--- OUTSIDE RECORDS SUMMARY | 2025-03-26 19:20 | XMS_ITS | Encounter Summary ---
Author Organization [employer] Address [address] [facility] [address] [place] [address] Care Team Providers Care Supervisor Core Shop Name Role Phone Unavailable Primary Care Provider Unavailabl e Reason for Visit * Reason Comments Med Refill Encounter Details Date Type Department Care Team (Late st Contact Info) Description 06/29/2024 Refill [facility] ADULT DENTAL [address] [place], [place] [phone] Lenora Fishman DDS [address] [place], [place] [phone] Social History Tobacco Use Types Packs/Day Years [...]
--- OUTSIDE RECORDS SUMMARY | 2025-03-26 19:20 | XMS_ITS | Encounter Summary ---
Author Organization [employer] Address [address] [facility] [address] [place] [address] Care Team Providers Care Housing Relocation Name Role Phone Unavailable Primary Care Provider Unavailabl e Reason for Visit * Reason Comments Med Refill Encounter Details Date Type Department Care Team (Late st Contact Info) Description 05/30/2024 Refill [facility] ADULT DENTAL [address] [place], [place] [phone] Irineo Harris DDS [address] [place], [place] [phone] Social History Tobacco Use Types Packs/Day Years [...]
--- OUTSIDE RECORDS SUMMARY | 2025-03-26 19:20 | XMS_ITS | Encounter Summary ---
Author Organization [employer] Address [address] [facility] [address] [place] [address] Care Team Providers Care Dust Control Engineer Name Role Phone Unavailable Primary Care Provider Unavailabl e Reason for Visit * Reason Comments Med Refill Encounter Details Date Type Department Care Team (Late st Contact Info) Description 07/21/2024 Refill [facility] ADULT DENTAL [address] [place], [place] [phone] Lenora Fishman, DDS [address] [place], [place] [phone] Social History Tobacco Use Types Packs/Day Years [...]
--- OUTSIDE RECORDS SUMMARY | 2025-03-26 19:20 | XMS_ITS | Encounter Summary ---
Author Organization [employer] Address [address] [facility] 7t [place] [address] Care Team Providers Care Process Area Supervisor Name Role Phone Unavailable Primary Care Provider Unavailabl e Reason for Visit * Reason Comments Med Refill Encounter Details Date Type Department Care Team (Late st Contact Info) Description 08/06/2024 Refill [facility] ADULT DENTAL [address] [place], [place] [phone] Abelino López DMD [address] [place] [address] Social History Tobacco Use Types Packs/Day Years [...]
--- OUTSIDE RECORDS SUMMARY | 2025-03-26 19:20 | XMS_ITS | Encounter Summary ---
Author Organization [employer] Address [address] [facility] 7t [place] [address] Care Team Providers Care Forensic Specialist Name Role Phone Unavailable Primary Care Provider Unavailabl e Reason for Visit * Reason Comments Med Refill Encounter Details Date Type Department Care Team (Late st Contact Info) Description 02/13/2025 Refill [facility] ADULT DENTAL [address] [place] [address] Abelino López DMD [address] [place] [address] Social History Tobacco Use Types Packs/Day Years Used Date Smoking Tobacco: Former Cigarettes Sex and Gender Information Value Date Recorded Sex Assigned at Male 02/06/2022 10:39 AM EDT Legal Sex Male 10:39 AM EDT Gender Identity Male 02/06/2022 10:39 AM EDT Sexual Orientation Straight 02/06/2022 10 :39 AM EDT documented as of this encounter Miscellaneous Notes * Telephone Encounter - Abelion López DMD - 02/16/2025 8:02 AM EST Approving, but needs appt for additional refills. documented in this encounter Plan of Treatment Not on file documented as of this encounter Visit Diagnoses Not on filedocumented in this encounter
--- OUTSIDE RECORDS SUMMARY | 2025-03-26 19:20 | XMS_ITS | Encounter Summary ---
Author Organization [employer] Address 75 [facility] 7t [place] [address] Care Team Providers Care Superintendent Plant Name Role Phone Unavailable Primary Care Provider Unavailabl e Reason for Visit * Reason Comments Med Refill Encounter Details Date Type Department Care Team (Late st Contact Info) Description 04/05/2024 Refill [facility] ADULT DENTAL [address] [place], [place] [phone] Lenora Fishman DDS [address] [place], [place] [phone] Social History Tobacco Use Types Packs/Day Years [...]
--- OUTSIDE RECORDS SUMMARY | 2025-03-26 19:20 | XMS_ITS | Encounter Summary ---
Author Organization [employer] Address 75 [facility] 7t [place] [address] Care Team Providers Care Product Safety Coordinator Name Role Phone Unavailable Primary Care Provider Unavailabl e Reason for Visit * Reason Comments Med Refill Encounter Details Date Type Department Care Team (Late st Contact Info) Description 08/29/2024 Refill [facility] ADULT DENTAL [address] [place], [place] [phone] Abelino López DMD [address] [place] [address] Social History Tobacco Use Types Packs/Day Years [...]
--- OUTSIDE RECORDS SUMMARY | 2025-03-26 19:20 | XMS_ITS | Clinical Summary ---
Author Organization [employer] Address [address] [facility] 7t [place] [address] Care Team Providers Care Ticket Taker Name Role Phone Unavailable Primary Care Provider [...] EVENING) AFTER BRUSHING TEETH NEEDED 473 mL 03/09/20 25 Active chlorhexidine (Peridex) 0.12 % solution SWISH 15 MLS IN MOUTH FOR 30 SECONDS THEN SPIT. USE TWICE DAILY (MORNING AND EVENING) AFTER BRUSHING TEETH NEEDED 473 mL 02/17/20 25 025 Discontinued Encounters Date Type Department Care Team Description 03/07/2025 Refill [facility] ADULT DENTAL [address] [place] [address] Abelino López DMD 02/13/2025 Refill [facility] ADULT DENTAL [address] [place] [address] Abelino López DMD 12/26/2024 Refill [facility] ADULT DENTAL [address] [place] [address] Abelino López DMD from Last 3 Months [...] of 3 - 19+ 3-dose series) 1996 Pneumococcal Vaccine: Pediatrics (0 to 5 Years) and At-Risk Patients (6 to 49) Years (2 of 2 - PCV) 06/12/2017 06/12/2016 Dental X-Ray: Full Mouth 11/19/2024 11/18/2021 COVID-19 Vaccine (3 - 2024-2 6 season) 2024 03/15/2021, 02/10/2021 Influenza Vaccine (#1) 2024 , 06/12/2016, 05/08/2016 Tobacco Screening 03/11/2025 03/11/2024 Zoster Vaccines (1 of 2) 2027 DTaP/Tdap/Td Vaccines (2 - T d or Tdap) 09/20/2027 09/19/2017, 03/09/2013 RSV Patients and Patients Aged 60 years or older (1 - 1-dose 75+ series) 2052 HIB Vaccines Aged Out No longer eligi [...] Most Recently Relevant to Health Maintenance Insurance [facility] MEDICAID STAND ADULT
== END 2025-03-26 16:07 | disposition home or self-care (01) ==
LOC: HO.HOS 15:21
PROVIDERS: Visit Provider Physician Assistant
DX: S72.92XA Unspecified fracture of left femur, initial encounter for closed fracture (principal)
CPT/HCPCS: 99213; G2211

== ENCOUNTER → 2025-03-26 15:22 | Outpatient (BNV) | payer OTHER, SELFPAY | PROVIDERS: Visit Provider Radiology Diagnostic Radiology | DX: S72.142D Displaced intertrochanteric fracture of left femur, subsequent encounter for closed fracture with routine healing (principal) | CPT/HCPCS: 73502 ==